=== PATIENT | female | born 1965 | race American Indian/Alaskan Native ===

== ENCOUNTER 2018-01-21 15:30 | Outpatient (RCR) | payer MEDICARE, SELFPAY ==
--- NOTE | 2017-11-06 12:54 | HP.PTEVAL_ITS ---
Patient's Visit Information SUHAS ABURTO is a 52 year old F referred to Physical Therapy by Lamonte ROMANO with a diagnosis of R elbow fractrue.. Date of Evaluation: 11/06/17 Physical Therapist: GROVER PisanoT, OC - Visit Plan Frequency: 2x /Week Duration: 4-6 Weeks Plan: 2x/week x 4-6 for elbow A/PROM and pronation ROM, shoulder ROM, progress to strengtheing as tolerates. Use moist heat and ice at elbow as needed. - Subjective Subjective: Broken R arm last month Sep 24, cleaning house and fell landed on R arm. Went to ER and given support. Saw Dr. Metz a week later and was hurting. Doctor opted for conservative without movement first 15 days , then careful movement. Now time to start moving it. Had a sling she was in during the day. Now she has no precautions except to be careful. Currently pain is not terrible but she prays alot for it. Is also lifting light things to strengthen it. Does hurt to lift the bottle. Using a heating pad at home. Dressing is hard to do because of her lack of motion in the right arm. Does not work. Is looking for work but is not off due to her arm. Enjoys shopping and needs arms to do this. No current exercises, does pendulum a little bit. - Pain R elbow pain Pain Intensity (Out of 10): 0 Pain Intensity Range: 0, 5 - Objective elbow ROM L 0-145. R elbow -29-125 pronation -15 from 90 left. R shoulder stiff at top of elevation 135 degrees on R. Scapula neck and L shoulder AROM WFL. reflexes 2/3 bi and tri B. No obvious sensation deficits to gross light touch. Strenght L UE 4/5. R shoulder 4- flexion and ext rot, 4 IR adn ext, elbow flex 3+ and extension 3+. Wrist pron adn supination and flexion and ext 4 - with mild discomfort with pron and supination and flexion. ROM wrist WNL B. - Goals Goal 1:: Full elbow flex adn ext adn pronation without pain. Goal Time Frame: 4-6 Weeks Goal 2:: Reach with R UE smoothly and without hesitation to do hair and get milk carton. Goal Time Frame: 4-6 Weeks Goal 3:: I approp HEP to continue improvements Goal Time Frame: 4-6 Weeks Goal 4:: Pt report 90% imrovement in overall condition. Goal Time Frame: 4-6 Weeks - Rehabilitation Potential Physical Therapy Diagnosis: R elbow fracture. Rehabilitation Potential: Fair - Anticipated Interventions Patient/Client Instruction: Educate patient on: Condition For the Purpose of:: To decrease pain, To increase ROM, To improve ability of physical actions for home/community/work/leisure Therapeutic Exercise to Include: Strength training, Passive ROM, Active ROM, Scapular Strength/Stabilization For the Purpose of:: To decrease pain, To increase ROM, To improve nutrient delivery to tissue, To increase tolerance to activity/condition/position, To improve ability of physical actions for home/community/work/leisure Manual Therapy Techniques to Include: Mobilization For the Purpose of:: To decrease pain, To increase ROM Cryotherapy (ice pack, ice massage): Yes Thermo therapy (hot pack): Yes For the Purpose of:: To decrease swelling/inflammation Thank you for the opportunity to evaluate your patient. For Medicare and Medicare HMO plans, please review the plan of care and approve it. It will need to be FAXED BACK to us at [phone] for Medicare purposes. Please let me know if there are questions or concerns regarding this plan of care. Physician Signature: Date:
--- NOTE | 2017-12-18 19:03 | HP.PTREVAL_ITS ---
Lamonte Metz, It has been my pleasure to treat SUHAS ABURTO over the last 9 visits for R elbow fractrue.. Please see the progress note below for an update on the physical therapy plan of care! Subjective: Still feels weak. 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 Squeezing mop bucket is a little hard. Arm gets tired quick. Started work two weeks ago. Job getting easier. Sleeping OK R shulder hurts at times and wrist intermittently. Takes 2 alleve everyday for whole body pain. Sees doctor later in the month. Can put turbin on but needs a two second break sometimes. Objective/Function: Movement of. R UE is smooth but limited to -7 ext and full flexion L elbow. Still very weak in shoulder(4-) and elbow(4-), not alot of pain with resisted testing. OVERALL PATIENT DOING WELL. REMAINS LACKING EXTENSION 7 DEGREES IN ELBOW AND WEAK. WILL CONTINUE TO WORK ON THESE AT HOME UNTIL DOCTOR F/U Plan Plan: f/u two weeks after doctor visit to D/C or progress per doctor recommendations. Goals Goal 1:: Full elbow flex adn ext adn pronation without pain. Goal Time Frame: 4-6 Weeks Goal Progress: Not Progressing Goal 2:: Reach with R UE smoothly and without hesitation to do hair and get milk carton. Goal Time Frame: 4-6 Weeks Goal Progress: Goal Met Goal 3:: I approp HEP to continue improvements Goal Time Frame: 4-6 Weeks Goal Progress: Goal Met Goal 4:: Pt report 90% imrovement in overall condition. Goal Time Frame: 4-6 Weeks Goal Progress: Goal Met Goal 5:: Pt not feel tired with UE at work or putting on turbin Goal Time Frame: 2-4 Weeks Goal Progress: NEW GOAL Anticipated Interventions Patient/Client Instruction: Educate patient on: Condition For the Purpose of:: To decrease pain, To increase ROM, To improve ability of physical actions for home/community/work/leisure Therapeutic Exercise to Include: Strength training, Passive ROM, Active ROM, Scapular Strength/Stabilization For the Purpose of:: To decrease pain, To increase ROM, To improve nutrient delivery to tissue, To increase tolerance to activity/condition/position, To improve ability of physical actions for home/community/work/leisure Manual Therapy Techniques to Include: Mobilization For the Purpose of:: To decrease pain, To increase ROM Cryotherapy (ice pack, ice massage): Yes Thermo therapy (hot pack): Yes For the Purpose of:: To decrease swelling/inflammation Please do not hesitate to contact me at [phone] by phone or Fax: if you have questions or concerns regarding this new plan of care! Sincerely, Ezekiel Soni, DPT, OC
--- NOTE | 2018-01-21 16:04 | HP.PTDCSUM ---
HP - PT D/C Summary It has been my pleasure to treat SUHAS ABURTO under orders from DR.JGESLE Gerardo for the diagnosis of R elbow fractrue. for a total of 10 visit(s). Discharge Date: 01/21/18 Please see the following information for a summary of their discharge status. - Subjective Subjective: Saw doctor today. Said she looks good. She will be sore for a little bit longer. Takes alleve and uses heating pad. Doing exercises at home. Doc said minimum of 6 months until feels better. Scheduled in late February. HEP going well, sometimes gets lazy after work. Work was really tiring the first week. Arm a little sore medially after working. Will start full go next week. Does everything at home. Daily pain is toerable but in medial elbow can hurt with 7/10 transsiently if leans on it wrong or eating. Worse with fatigue. Doing strength ex 2x/week, was sick and daughter takes alot of her time. - Pain R elbow pain Pain Intensity (Out of 10): 0 R shoulder Pain Intensity (Out of 10): 1 - Overall Improvement % Improvement: 90 - Objective Objective/Function: -7 ext to 140 flexion, 4/5 strength in R elbow. No increase in pain. Shoulder and wrist ROM full and without pain. OVERALL DOING WELL AND PROGRESS HAS PLATEAUD AT A FUNCTIONAL LEVEL FOR THE PATIENT. - Goals Goal 1:: Full elbow flex adn ext adn pronation without pain. Goal Progress: Not Progressing Goal 2:: Reach with R UE smoothly and without hesitation to do hair and get milk carton. Goal Progress: Goal Met Goal 3:: I approp HEP to continue improvements Goal Progress: Goal Met Goal 4:: Pt report 90% imrovement in overall condition. Goal Progress: Goal Met Goal 5:: Pt not feel tired with UE at work or putting on turbin Goal Progress: Progressing - Plan Plan: D/C - D/C Information Discharge Comments: Pt I with HEP and will continue as time allows at home. If there are questions or concerns regarding this patient's physical therapy, please feel free to call me at [phone]. Thank you for the referral of this patient. Sincerely, Ezekiel Soni, DPT, OC
== END 2018-01-21 19:00 | disposition home or self-care (01) ==
LOC: PT 15:30
PROVIDERS: Family Provider Internal Medicine; PCP Internal Medicine; Visit Provider Orthopaedic Surgery
DX: S52.121D Displaced fracture of head of right radius, subsequent encounter for closed fracture with routine healing (principal)
CPT/HCPCS: 97110; 97140; 97161; 97530; G8981; G8982

== ENCOUNTER → 2018-02-28 11:07 | Outpatient (CLI) | payer MEDICARE, SELFPAY ==
[2018-02-28 12:54] LABS: Absolute Neutrophil Count 4.5 X10^3/uL (2.0-7.7); Basophil# 0.07 X10^3/uL; Basophil% 0.8 % (0-1); Eosinophil# 0.21 X10^3/uL; Eosinophils% 2.4 % (0-5); Hematocrit 34.5 % (37-47); Hemoglobin 10.8 g/dl (12.0-15.0); Lymphocyte % 36.5 % (19-41); Mean Corp Hgb Conc 31.3 g/gl (32-36); Mean Corpuscular Hgb 25.7 pg (27.0-32.0); Mean Corpuscular Volume 82.1 fL (81-99); Monocyte# 0.71 X10^3/uL; Monocyte% 8.1 % (0-10); Neutrophil # 4.52 X10^3/uL (2.7-7.7); Neutrophil % 51.5 % (47-70); Platelet Count 432 K/mm3 (150-450); RBC Distribution Width CV 14.4 % (11.6-14.6); RBC Distribution Width SD 43.3 fl (35.1-43.9); White Blood Count 8.8 K/mm3 (4.4-11.0)
[2018-02-28 12:59] LABS: POSITIVE COUNT NO; POSITIVE DIFFERENTIAL NO; POSITIVE MORPHOLOGY NO
[2018-02-28 13:25] LABS: ALB/GLOB Ratio 0.8 RATIO (0.9-2.4); AST(SGOT) 21 U/L (15-37); Alanine Aminotransfer ALT/SGPT 31 U/L (13-56); Albumin, Serum 3.4 g/dL (3.2-5.0); Alkaline Phosphatase 83 U/L (45-117); Anion Gap 9 (5-15); BUN 12 mg/dL (7-18); BUN/Creat Ratio 16.6 RATIO (10-20); Calcium,Total 8.7 mg/dL (8.5-10.1); Chloride 102 mmol/L (98-107); Creatinine, Serum 0.72 mg/dL (0.55-1.02); EST Glomerular Filtration Rate 89 mL/min (>60); Est Glom Filt Rate - Afr Amer 108 mL/min (>60); Globulin 4.4 g/dL (2.2-4.2); Glucose 73 mg/dL (74-106); Potassium 4.1 mmol/L (3.5-5.1); Protein, Total 7.8 g/dL (6.4-8.2); Sodium Level 136 mmol/L (136-145); Thyroid Stim Hormone (TSH) 3.34 uIU/mL (0.358-3.74)
== END ==
PROVIDERS: Visit Provider Family Medicine Geriatric Medicine
DX: Z00.00 Encounter for general adult medical examination without abnormal findings (principal); I10 Essential (primary) hypertension
CPT/HCPCS: 36415; 80053; 84443; 85025

== ENCOUNTER → 2018-03-08 11:43 | Outpatient (CLI) | payer MEDICARE, SELFPAY ==
[2018-03-08 13:05] LABS: Iron 110 ug/dL (50-170); Iron Binding Capacity,Total 436 ug/dL (250-450)
== END ==
PROVIDERS: Family Provider Family Medicine Geriatric Medicine; PCP Family Medicine Geriatric Medicine; Visit Provider Family Medicine Geriatric Medicine
DX: D64.9 Anemia, unspecified (principal)
CPT/HCPCS: 36415; 83540; 83550

== ENCOUNTER → 2018-03-15 12:44 | Outpatient (CLI) | payer MEDICARE, SELFPAY ==
--- NOTE | 2018-03-14 10:20 | BRBX_PTH ---
PATIENT: SUHAS ABURTO LOC: [facility] U#:[id number] AGE/SX: 60/F ROOM: RE03/15/[address]: Dr. Ned Yusuf MD : 1965 BED: DIS: SPEC #: [id number] RECD: 03/15/18 12:19 STATUS: GILMA MAIHeather #: [id number] KENNETH: 03/14/18 10:[address]: Ned Yusuf DEPT: SURGICAL PATHOLOGY RECD BY: Ned Hernandez ENTERED: 03/15/18 14:14 SP TYPE: BREAST BX OTHR DR: Dr. Cassius Kilpatrick MD Tissues: Right breast, NOS Procedures: Surgery Specimen Level IV Comments: @ Specimen number changed from [id number] to [id number] @ on 03/15/18 at 1449 by TEVIN. HEADER OPERATION: Ultrasound-guided needle core biopsy right breast PRE-OP DIAGNOSIS: Abnormal mammogram/ultrasound TISSUE SUBMITTED: Right breast needle core biopsy ISCHEMIC TIME: 5 minutes FIXATION TIME: 67 hours MICROSCOPIC DIAGNOSIS Right breast, ultrasound-guided needle core biopsy: Fragments of benign breast tissue with dense fibrosis, chronic inflammation and foreign body giant cell reaction. Negative for malignancy. GENESIS:brenton 03/21/18 COMMENT Correlation with clinical, radiologic findings and appropriate follow up are necessary. The results are reported to Dr. Yusuf?s office on 03/20/18. MICROSCOPIC DESCRIPTION Slides are reviewed. GROSS DESCRIPTION Received in fixative is one container labeled with the patient's name and designated right breast biopsy. The specimen consists of three elongated fragments of yellow-white soft tissue that in aggregate measure 1.7 x 0.5 x 0.1 cm. The specimen is totally submitted in one cassette. / AM:brenton 03/15/18 TC:5 CPT: 37458
== END ==
PROVIDERS: Family Provider Family Medicine Geriatric Medicine; PCP Family Medicine Geriatric Medicine; Visit Provider Surgery
DX: R92.8 Other abnormal and inconclusive findings on diagnostic imaging of breast (principal)
CPT/HCPCS: 88305

== ENCOUNTER → 2018-04-15 18:28 | Outpatient (CLI) | payer MEDICARE, SELFPAY ==
--- NOTE | 2018-04-15 18:30 | US_ITS ---
STUDY: ULTRASOUND OF THE FEMALE PELVIS - COMPLETE REASON FOR EXAM: Female, 52 years old. Menorrhagia. TECHNIQUE: Transabdominal and transvaginal. TECHNICAL QUALITY: Adequate. COMPARISON: None. FINDINGS: The uterus is anteverted and is in a midline position. The uterus measures 9.1 x 4.8 x 3.1 cm. Normal uterine cervix. The endometrium measures 4 mm in thickness, and is hyperechoic. There is no demonstrated endometrial mass. Several scattered small uterine fibroids the largest measuring 0.9 x 0.7 x 0.8 cm. I.U.D. - The patient does not have an I.U.D. The right ovary is visualized. The right ovary measures 1.6 x 1.5 x 0.8 cm. There is no right ovarian cyst or ovarian mass. There is no visualized right adnexal mass or complex lesion. There is normal arterial and normal venous vascularity. The left ovary is visualized. The left ovary measures 2.1 x 1.4 x 0.9 cm. There is no left ovarian cyst or ovarian mass. There is no visualized left adnexal mass or complex lesion. There is normal arterial and normal venous vascularity. There is no fluid in the cul-de-sac. The pre void volume of the bladder was 93 ml. Polycystic ovary disease: No. US/Transvaginal Non- IMPRESSION: Small uterine fibroids. Normal ovaries. Electronically Signed: Cleve Beard MD at 0:56 EDT , Service support ,
== END ==
PROVIDERS: Family Provider Family Medicine Geriatric Medicine; PCP Family Medicine Geriatric Medicine; Visit Provider Family Medicine Geriatric Medicine
DX: N92.0 Excessive and frequent menstruation with regular cycle (principal)
CPT/HCPCS: 76830

== ENCOUNTER → 2018-06-05 07:58 | Outpatient (CLI) | payer MEDICAID, SELFPAY ==
[2018-06-05 08:57] LABS: AST(SGOT) 16 U/L (15-37); Alanine Aminotransfer ALT/SGPT 26 U/L (13-56); Albumin, Serum 3.3 g/dL (3.2-5.0); Alkaline Phosphatase 91 U/L (45-117); Bilirubin, Direct 0.07 mg/dL (0.00-0.30); Cholesterol 213 mg/dL (200); Globulin 4.6 g/dL (2.2-4.2); High Density Lipoprotein 54 mg/dL; Protein, Total 7.9 g/dL (6.4-8.2); Thyroid Stim Hormone (TSH) 3.36 uIU/mL (0.358-3.74); Triglycerides 133 mg/dL; Very Low Density Lipoprotein 27 mg/dL (5-40)
== END ==
PROVIDERS: Family Provider Family Medicine Geriatric Medicine; PCP Family Medicine Geriatric Medicine; Visit Provider Internal Medicine Cardiovascular Disease
DX: E78.5 Hyperlipidemia, unspecified (principal)
CPT/HCPCS: 36415; 80061; 80076; 84436; 84443

== ENCOUNTER → 2018-06-06 16:54 | Outpatient (CLI) | payer MEDICAID, SELFPAY ==
[2018-06-06 18:03] LABS: Absolute Lymphocyte Count 3.39 X10^3/ul (0.83-4.51); Absolute Neutrophil Count 6.5 X10^3/uL (2.0-7.7); Basophil# 0.05 X10^3/uL; Basophil% 0.5 % (0-1); Eosinophil# 0.17 X10^3/uL; Eosinophils% 1.5 % (0-5); Hematocrit 34.7 % (37-47); Hemoglobin 10.3 g/dl (12.0-15.0); Lymphocyte # 3.39 X10^3/ul (4.0); Lymphocyte % 30.8 % (19-41); Mean Corp Hgb Conc 29.7 g/gl (32-36); Mean Corpuscular Hgb 23.8 pg (27.0-32.0); Mean Corpuscular Volume 80.1 fL (81-99); Monocyte# 0.88 X10^3/uL; Neutrophil # 6.47 X10^3/uL (2.7-7.7); Neutrophil % 58.8 % (47-70); Platelet Count 453 K/mm3 (150-450); RBC Distribution Width CV 14.7 % (11.6-14.6); RBC Distribution Width SD 42.7 fl (35.1-43.9); Red Blood Count 4.33 M/mm3 (4.2-5.4)
[2018-06-06 18:17] LABS: ALB/GLOB Ratio 0.7 RATIO (0.9-2.4); AST(SGOT) 15 U/L (15-37); Alanine Aminotransfer ALT/SGPT 27 U/L (13-56); Albumin, Serum 3.3 g/dL (3.2-5.0); Alkaline Phosphatase 87 U/L (45-117); Anion Gap 10 (5-15); BUN 12 mg/dL (7-18); BUN/Creat Ratio 15.3 RATIO (10-20); Chloride 102 mmol/L (98-107); Creatinine, Serum 0.78 mg/dL (0.55-1.02); EST Glomerular Filtration Rate 82 mL/min (>60); Est Glom Filt Rate - Afr Amer 99 mL/min (>60); Globulin 4.5 g/dL (2.2-4.2); Glucose 87 mg/dL (74-106); Potassium 4.5 mmol/L (3.5-5.1); Protein, Total 7.8 g/dL (6.4-8.2); Sodium Level 139 mmol/L (136-145); Thyroid Stim Hormone (TSH) 2.87 uIU/mL (0.358-3.74)
[2018-06-06 19:03] LABS: POSITIVE COUNT NO; POSITIVE DIFFERENTIAL NO; POSITIVE MORPHOLOGY NO
[2018-06-07 10:40] LABS: Vitamin D,25 Hydroxy 35.3 ng/mL (29.95-100.01)
== END ==
PROVIDERS: Family Provider Family Medicine Geriatric Medicine; PCP Family Medicine Geriatric Medicine; Visit Provider Family Medicine Geriatric Medicine
DX: E55.9 Vitamin D deficiency, unspecified (principal); I10 Essential (primary) hypertension
CPT/HCPCS: 36415; 80053; 82306; 84443; 85025

== ENCOUNTER → 2018-06-07 13:26 | Outpatient (CLI) | payer MEDICAID, SELFPAY | PROVIDERS: Family Provider Family Medicine Geriatric Medicine; PCP Family Medicine Geriatric Medicine; Visit Provider Internal Medicine Cardiovascular Disease | DX: R94.31 Abnormal electrocardiogram [ECG] [EKG] (principal); R07.9 Chest pain, unspecified; I10 Essential (primary) hypertension | CPT/HCPCS: 93306; A4216 ==

== ENCOUNTER → 2018-06-10 10:33 | Outpatient (CLI) | payer MEDICAID, SELFPAY | PROVIDERS: Family Provider Family Medicine Geriatric Medicine; PCP Family Medicine Geriatric Medicine; Visit Provider Internal Medicine Cardiovascular Disease | DX: R94.31 Abnormal electrocardiogram [ECG] [EKG] (principal); R07.9 Chest pain, unspecified; I10 Essential (primary) hypertension | CPT/HCPCS: 93017; 93350; Q9957; A4216; C8928 ==

== ENCOUNTER → 2018-06-11 14:06 | Outpatient (CLI) | payer MEDICAID, SELFPAY ==
[2018-06-11 15:55] LABS: Estradiol 107.8 pg/mL; Follicle Stimulating Hormone 11.1 mIU/mL
[2018-06-14 03:07] LABS: DHEA Sulfate 102.6 ug/dL (41.2-243.7)
[2018-06-14 11:35] LABS: Testosterone Free 0.9 pg/mL (0.0-4.2)
== END ==
PROVIDERS: Obstetrics & Gynecology; Family Provider Family Medicine Geriatric Medicine; PCP Family Medicine Geriatric Medicine; Visit Provider Family Medicine Geriatric Medicine
DX: N92.6 Irregular menstruation, unspecified (principal)
CPT/HCPCS: 36415; 82627; 82670; 83001; 84402; 82626

== ENCOUNTER → 2018-08-21 11:11 | Outpatient (CLI) | payer MEDICAID, SELFPAY ==
[2018-08-21 12:39] LABS: Absolute Lymphocyte Count 2.65 X10^3/ul (0.83-4.51); Absolute Neutrophil Count 4.8 X10^3/uL (2.0-7.7); Basophil# 0.07 X10^3/uL; Basophil% 0.8 % (0-1); Eosinophil# 0.19 X10^3/uL; Eosinophils% 2.2 % (0-5); Hematocrit 32.6 % (37-47); Hemoglobin 9.8 g/dl (12.0-15.0); Lymphocyte # 2.65 X10^3/ul (4.0); Lymphocyte % 31.3 % (19-41); Mean Corp Hgb Conc 30.1 g/gl (32-36); Mean Corpuscular Hgb 23.1 pg (27.0-32.0); Mean Corpuscular Volume 76.9 fL (81-99); Mean Platelet Vol. 9.4 fl (6.2-12.0); Monocyte# 0.68 X10^3/uL; Neutrophil % 56.9 % (47-70); Platelet Count 440 K/mm3 (150-450); RBC Distribution Width CV 16.5 % (11.6-14.6); RBC Distribution Width SD 45.1 fl (35.1-43.9); Red Blood Count 4.24 M/mm3 (4.2-5.4); White Blood Count 8.5 K/mm3 (4.4-11.0)
[2018-08-21 12:40] LABS: POSITIVE COUNT NO; POSITIVE DIFFERENTIAL NO; POSITIVE MORPHOLOGY NO
[2018-08-21 12:55] LABS: Vitamin D,25 Hydroxy 38.4 ng/mL (29.95-100.01)
[2018-08-21 12:58] LABS: ALB/GLOB Ratio 0.7 RATIO (0.9-2.4); AST(SGOT) 17 U/L (15-37); Alanine Aminotransfer ALT/SGPT 30 U/L (13-56); Alkaline Phosphatase 94 U/L (45-117); Anion Gap 8 (5-15); BUN 11 mg/dL (7-18); BUN/Creat Ratio 14.3 RATIO (10-20); Calcium,Total 8.4 mg/dL (8.5-10.1); Chloride 105 mmol/L (98-107); Creatinine, Serum 0.77 mg/dL (0.55-1.02); EST Glomerular Filtration Rate 84 mL/min (>60); Est Glom Filt Rate - Afr Amer 101 mL/min (>60); Globulin 4.6 g/dL (2.2-4.2); Glucose 87 mg/dL (74-106); Potassium 4.4 mmol/L (3.5-5.1); Protein, Total 7.6 g/dL (6.4-8.2); Sodium Level 140 mmol/L (136-145)
== END ==
PROVIDERS: Family Provider Family Medicine Geriatric Medicine; PCP Family Medicine Geriatric Medicine; Visit Provider Family Medicine Geriatric Medicine
DX: E55.9 Vitamin D deficiency, unspecified (principal); I10 Essential (primary) hypertension
CPT/HCPCS: 36415; 80053; 82306; 84443; 85025

== ENCOUNTER → 2018-08-30 11:44 | Outpatient (CLI) | payer MEDICAID, SELFPAY ==
[2018-07-10 10:18] VITALS: BMI 27.2
== END ==
PROVIDERS: Family Provider Family Medicine Geriatric Medicine; PCP Family Medicine Geriatric Medicine; Referring Provider Family Medicine Geriatric Medicine; Visit Provider Family Medicine Geriatric Medicine
DX: M79.10 Myalgia, unspecified site (principal)
CPT/HCPCS: 87633

== ENCOUNTER → 2018-11-19 11:15 | Outpatient (CLI) | payer MEDICAID, SELFPAY ==
[2018-07-10 10:18] VITALS: BMI 27.2
[2018-11-19 13:31] LABS: Absolute Lymphocyte Count 2.64 X10^3/ul (0.83-4.51); Basophil# 0.06 X10^3/uL; Basophil% 0.7 % (0-1); Eosinophil# 0.11 X10^3/uL; Eosinophils% 1.3 % (0-5); Hemoglobin 10.4 g/dl (12.0-15.0); Lymphocyte # 2.64 X10^3/ul (4.0); Lymphocyte % 30.8 % (19-41); Mean Corp Hgb Conc 29.7 g/gl (32-36); Mean Corpuscular Hgb 23.4 pg (27.0-32.0); Mean Corpuscular Volume 78.8 fL (81-99); Mean Platelet Vol. 8.8 fl (6.2-12.0); Monocyte# 0.67 X10^3/uL; Monocyte% 7.8 % (0-10); Neutrophil # 5.03 X10^3/uL (2.7-7.7); Neutrophil % 58.7 % (47-70); POSITIVE COUNT NO; POSITIVE DIFFERENTIAL NO; POSITIVE MORPHOLOGY NO; Platelet Count 409 K/mm3 (150-450); RBC Distribution Width CV 17.6 % (11.6-14.6); RBC Distribution Width SD 50.7 fl (35.1-43.9); Red Blood Count 4.44 M/mm3 (4.2-5.4); White Blood Count 8.6 K/mm3 (4.4-11.0)
[2018-11-19 13:40] LABS: Vitamin D,25 Hydroxy 28.2 ng/mL (29.95-100.01)
[2018-11-19 13:44] LABS: ALB/GLOB Ratio 0.7 RATIO (0.9-2.4); AST(SGOT) 21 U/L (15-37); Alanine Aminotransfer ALT/SGPT 31 U/L (13-56); Albumin, Serum 3.2 g/dL (3.2-5.0); Alkaline Phosphatase 71 U/L (45-117); Anion Gap 7 (5-15); BUN 14 mg/dL (7-18); BUN/Creat Ratio 19.5 RATIO (10-20); Calcium,Total 8.7 mg/dL (8.5-10.1); Chloride 106 mmol/L (98-107); Creatinine, Serum 0.72 mg/dL (0.55-1.02); EST Glomerular Filtration Rate 90 mL/min (>60); Est Glom Filt Rate - Afr Amer 109 mL/min (>60); Globulin 4.4 g/dL (2.2-4.2); Glucose 72 mg/dL (74-106); Potassium 4.1 mmol/L (3.5-5.1); Protein, Total 7.6 g/dL (6.4-8.2); Sodium Level 138 mmol/L (136-145); Thyroid Stim Hormone (TSH) 2.01 uIU/mL (0.358-3.74)
== END ==
PROVIDERS: Family Provider Family Medicine Geriatric Medicine; PCP Family Medicine Geriatric Medicine; Visit Provider Family Medicine Geriatric Medicine
DX: E55.9 Vitamin D deficiency, unspecified (principal); I10 Essential (primary) hypertension
CPT/HCPCS: 36415; 80053; 82306; 84443; 85025

== ENCOUNTER → 2018-12-23 14:02 | Outpatient (CLI) | payer MEDICAID, SELFPAY ==
[2018-12-19 13:41] VITALS: BMI 27.1
== END ==
PROVIDERS: Family Provider Family Medicine Geriatric Medicine; PCP Family Medicine Geriatric Medicine; Referring Provider Family Medicine Geriatric Medicine; Visit Provider Family Medicine Geriatric Medicine
DX: R68.83 Chills (without fever) (principal)
CPT/HCPCS: 87633

== ENCOUNTER → 2019-03-05 11:57 | Outpatient (CLI) | payer MEDICAID, SELFPAY ==
[2018-12-19 13:41] VITALS: BMI 27.1
[2019-03-05 13:31] LABS: Vitamin D,25 Hydroxy 31.7 ng/mL (29.95-100.01)
[2019-03-05 13:33] LABS: Absolute Lymphocyte Count 2.61 X10^3/ul (0.83-4.51); Absolute Neutrophil Count 5.8 X10^3/uL (2.0-7.7); Basophil# 0.06 X10^3/uL; Basophil% 0.6 % (0-1); Eosinophil# 0.15 X10^3/uL; Eosinophils% 1.6 % (0-5); Hematocrit 36.5 % (37-47); Hemoglobin 11.7 g/dl (12.0-15.0); Lymphocyte # 2.61 X10^3/ul (4.0); Lymphocyte % 28.1 % (19-41); Mean Corp Hgb Conc 32.1 g/gl (32-36); Mean Corpuscular Hgb 27.2 pg (27.0-32.0); Mean Corpuscular Volume 84.9 fL (81-99); Mean Platelet Vol. 9.2 fl (6.2-12.0); Monocyte# 0.58 X10^3/uL; Monocyte% 6.2 % (0-10); Neutrophil # 5.82 X10^3/uL (2.7-7.7); Neutrophil % 62.6 % (47-70); Platelet Count 361 K/mm3 (150-450); RBC Distribution Width CV 15.2 % (11.6-14.6); RBC Distribution Width SD 47.1 fl (35.1-43.9); White Blood Count 9.3 K/mm3 (4.4-11.0)
[2019-03-05 13:36] LABS: POSITIVE COUNT NO; POSITIVE DIFFERENTIAL NO; POSITIVE MORPHOLOGY NO
[2019-03-05 13:37] LABS: ALB/GLOB Ratio 0.7 RATIO (0.9-2.4); AST(SGOT) 21 U/L (15-37); Alanine Aminotransfer ALT/SGPT 34 U/L (13-56); Albumin, Serum 2.9 g/dL (3.2-5.0); Alkaline Phosphatase 80 U/L (45-117); Anion Gap 8 (5-15); BUN 11 mg/dL (7-18); BUN/Creat Ratio 14.9 RATIO (10-20); Calcium,Total 8.7 mg/dL (8.5-10.1); Chloride 106 mmol/L (98-107); Creatinine, Serum 0.74 mg/dL (0.55-1.02); EST Glomerular Filtration Rate 88 mL/min (>60); Est Glom Filt Rate - Afr Amer 106 mL/min (>60); Globulin 4.2 g/dL (2.2-4.2); Glucose 85 mg/dL (74-106); Protein, Total 7.1 g/dL (6.4-8.2); Sodium Level 140 mmol/L (136-145); Thyroid Stim Hormone (TSH) 1.49 uIU/mL (0.358-3.74)
[2019-03-06 16:04] LABS: Hep C Antibodies <0.1 s/co ratio (0.0-0.9)
== END ==
PROVIDERS: Family Provider Family Medicine Geriatric Medicine; PCP Family Medicine Geriatric Medicine; Visit Provider Family Medicine Geriatric Medicine
DX: E55.9 Vitamin D deficiency, unspecified (principal); I10 Essential (primary) hypertension
CPT/HCPCS: 36415; 80053; 82306; 84443; 85025; 86803

== ENCOUNTER → 2019-03-26 15:03 | Outpatient (CLI) | payer MEDICAID, SELFPAY ==
[2018-12-19 13:41] VITALS: BMI 27.1
[2019-04-02 03:06] LABS: Alternaria alternata <0.10 kU/L (Class 0); Aspergillus fumigatus <0.10 kU/L (Class 0); Bahia Grass <0.10 kU/L (Class 0); Beef <0.10 kU/L (Class 0); Bermuda Grass <0.10 kU/L (Class 0); Bluegrass, Kentucky <0.10 kU/L (Class 0); Cat Hair/Dander, Standard <0.10 kU/L (Class 0); Cedar, Mountain 0.11 kU/L (Class 0/I); Cladosporium herbarum <0.10 kU/L (Class 0); Cockroach, American 0.35 kU/L (Class I); Corn <0.10 kU/L (Class 0); Dog Epithelia <0.10 kU/L (Class 0); Egg, Whole <0.10 kU/L (Class 0); Elm, American White <0.10 kU/L (Class 0); Hazelnut Tree <0.10 kU/L (Class 0); Hickory, White <0.10 kU/L (Class 0); Johnson Grass <0.10 kU/L (Class 0); Maple/Box Elder <0.10 kU/L (Class 0); Milk (Cow) <0.10 kU/L (Class 0); Mucor racemosus <0.10 kU/L (Class 0); Mugwort <0.10 kU/L (Class 0); Mulberry, White <0.10 kU/L (Class 0); Nettle <0.10 kU/L (Class 0); Oak, White <0.10 kU/L (Class 0); Peanut <0.10 kU/L (Class 0); Penicillium chrysogen <0.10 kU/L (Class 0); Pigweed, Rough <0.10 kU/L (Class 0); Plantain, English <0.10 kU/L (Class 0); Pork <0.10 kU/L (Class 0); Ragweed, Short/Common <0.10 kU/L (Class 0); Sheep Sorrel(Dock) <0.10 kU/L (Class 0); Soybean <0.10 kU/L (Class 0); Stemphylium herbarum <0.10 kU/L (Class 0); Sweet Gum <0.10 kU/L (Class 0); Sycamore, American <0.10 kU/L (Class 0); Wheat <0.10 kU/L (Class 0)
[2019-04-02 11:21] LABS: Chocolate <0.10 kU/L (Class 0)
== END ==
PROVIDERS: Family Provider Family Medicine Geriatric Medicine; PCP Family Medicine Geriatric Medicine; Visit Provider Family Medicine Geriatric Medicine
DX: L20.89 Other atopic dermatitis (principal)
CPT/HCPCS: 36415; 86003; 86005

== ENCOUNTER → 2019-06-10 10:43 | Outpatient (CLI) | payer MEDICAID, SELFPAY ==
[2019-05-02 11:47] VITALS: BMI 27.1
--- NOTE | 2019-06-10 10:53 | RAD_ITS ---
REPORT STUDY: X-RAY - LEFT KNEE REASON FOR EXAM: Female, 53 years old. Pain chronic pain TECHNIQUE: 4 view(s) of the knee. COMPARISON: None. FINDINGS: Normal visualized distal femur. Normal visualized proximal tibia and fibula. Normal proximal tibiofibular articulation. There is moderate degenerative arthrosis of the medial femorotibial compartment with moderate joint space narrowing. There is mild degenerative arthrosis of the lateral femorotibial compartment. There is mild degenerative arthrosis of the patellofemoral articulation. There is enthesopathy at the Achilles insertion. There are small calcific densities or hypertrophy of the tibial spine. There may be a trace joint effusion. The soft tissue structures are unremarkable. RAD/Knee 4 or More Views IMPRESSION: Degenerative changes left knee. No visualized acute fracture. There may be a trace joint effusion. Electronically Signed: Emily Cavazos MD at 17:50 EDT Tel , Service support ,
== END ==
PROVIDERS: Family Provider Family Medicine Geriatric Medicine; PCP Family Medicine Geriatric Medicine; Referring Provider Family Medicine Geriatric Medicine; Visit Provider Family Medicine Geriatric Medicine
DX: M25.569 Pain in unspecified knee (principal)
CPT/HCPCS: 73564

== ENCOUNTER → 2019-07-23 12:20 | Outpatient (CLI) | payer MEDICAID, SELFPAY ==
[2019-06-18 10:21] VITALS: BMI 28.3
[2019-07-29 16:24] LABS: DHEA Sulfate 14.5 ug/dL (41.2-243.7); Testosterone, % Free 1.49 % (0.50-2.80); Testosterone, Free < 0.04 ng/dL (0.10-0.85); Testosterone, Total < 3 ng/dL (3-41)
[2019-07-29 16:46] LABS: Androstenedione 25 ng/dL (41-262); Sex Hormone-binding Globulin 57.9 nmol/L (17.3-125.0)
== END ==
PROVIDERS: Family Provider Family Medicine Geriatric Medicine; PCP Family Medicine Geriatric Medicine; Referring Provider Dermatology; Visit Provider Dermatology
DX: L30.9 Dermatitis, unspecified (principal); L30.8 Other specified dermatitis; L68.0 Hirsutism
CPT/HCPCS: 36415; 82157; 82627; 84270; 84402; 84403; 82626

== ENCOUNTER → 2019-09-03 11:14 | Outpatient (CLI) | payer MEDICAID, SELFPAY ==
[2019-06-18 10:21] VITALS: BMI 28.3
[2019-09-03 12:29] LABS: Hemoglobin 11.7 g/dL (12.0-15.0); Mean Corp Hgb Conc 31.6 g/dL (32-36); Mean Corpuscular Hgb 27.9 pg (27.0-32.0); Mean Corpuscular Volume 88.1 fL (81-99); Mean Platelet Vol. 9.5 fl (6.2-12.0); POSITIVE COUNT YES; POSITIVE MORPHOLOGY YES; Platelet Count 382 K/mm3 (150-450); RBC Distribution Width CV 13.9 % (11.6-14.6); RBC Distribution Width SD 44.2 fl (35.1-43.9); White Blood Count 14.3 K/mm3 (4.4-11.0)
[2019-09-03 12:36] LABS: Differential Indicated MANUAL DIFF
[2019-09-03 12:46] LABS: ALB/GLOB Ratio 0.8 RATIO (0.9-2.4); AST(SGOT) 14 U/L (15-37); Alanine Aminotransfer ALT/SGPT 34 U/L (13-56); Alkaline Phosphatase 64 U/L (45-117); Anion Gap 8 (5-15); BUN 18 mg/dL (7-18); BUN/Creat Ratio 24.6 RATIO (10-20); Calcium,Total 8.8 mg/dL (8.5-10.1); Chloride 101 mmol/L (98-107); Creatinine, Serum 0.73 mg/dL (0.55-1.02); EST Glomerular Filtration Rate 88 mL/min (>60); Est Glom Filt Rate - Afr Amer 106 mL/min (>60); Glucose 75 mg/dL (74-106); Sodium Level 139 mmol/L (136-145)
[2019-09-03 12:56] LABS: Vitamin D,25 Hydroxy 25.6 ng/mL (29.95-100.01)
[2019-09-03 13:25] LABS: Lymphocyte 19 % (19-41); Metamyelocyte 3 % (0-1); Monocyte 5 % (0-10); Myelocyte 2 (0-0); Neutrophil-Band 3 % (0-5); Neutrophil-Segmented 68 % (47-70); Red Cell Morphology NORM C+C NORMAL (NORM C&C); Total Cells Counted 100 (MANUAL DIFF)
[2019-09-03 13:26] LABS: Platelet Estimate ADEQUATE (ADEQ)
[2019-09-03 13:27] LABS: Absolute Lymphocyte Count 2.72 X10^3/uL (0.83-4.51); Absolute Neutrophil Count 10.2 X10^3/uL (2.0-7.7)
[2019-09-05 13:17] LABS: Pathologist Review Reviewed
== END ==
PROVIDERS: Family Provider Family Medicine Geriatric Medicine; PCP Family Medicine Geriatric Medicine; Visit Provider Family Medicine Geriatric Medicine
DX: I10 Essential (primary) hypertension (principal); E55.9 Vitamin D deficiency, unspecified
CPT/HCPCS: 36415; 80053; 82306; 84443; 85025

== ENCOUNTER → 2019-09-05 10:11 | Outpatient (CLI) | payer MEDICAID, SELFPAY ==
[2019-06-18 10:21] VITALS: BMI 28.3
--- NOTE | 2019-09-05 10:12 | RAD_ITS ---
STUDY: X-RAY - LEFT KNEE REASON FOR EXAM: Female, 54 years old. Left knee pain TECHNIQUE: 4 view(s) of the knee. COMPARISON: None. FINDINGS: Normal visualized distal femur. Normal visualized proximal tibia and fibula. Normal proximal tibiofibular articulation. There is mild degenerative arthrosis of the medial femorotibial compartment. Normal lateral femorotibial compartment. Normal patellofemoral articulation. There is no demonstrated joint effusion. The soft tissue structures are unremarkable. RAD/Knee 4 or More Views IMPRESSION: Mild medial compartment osteoarthrosis. Electronically Signed: Ronald Spencer MD (Brooks) at 14:54 EST , Service support ,
== END ==
PROVIDERS: Family Provider Family Medicine Geriatric Medicine; PCP Family Medicine Geriatric Medicine; Referring Provider Orthopaedic Surgery; Visit Provider Orthopaedic Surgery
DX: M17.12 Unilateral primary osteoarthritis, left knee (principal)
CPT/HCPCS: 73564

== ENCOUNTER → 2019-10-27 14:54 | Outpatient (CLI) | payer MEDICAID, SELFPAY ==
[2019-10-27 10:57] VITALS: BMI 28.3
== END ==
PROVIDERS: Family Provider Family Medicine Geriatric Medicine; PCP Family Medicine Geriatric Medicine; Referring Provider Family Medicine Geriatric Medicine; Visit Provider Family Medicine Geriatric Medicine
DX: R68.83 Chills (without fever) (principal)
CPT/HCPCS: 87633

== ENCOUNTER → 2020-03-11 14:40 | Outpatient (CLI) | payer MEDICAID, SELFPAY ==
[2019-12-29 10:39] VITALS: BMI 27.9
[2020-03-11 16:49] LABS: Absolute Lymphocyte Count 2.79 X10^3/uL (0.83-4.51); Absolute Neutrophil Count 7.1 X10^3/uL (2.0-7.7); Basophil# 0.11 X10^3/uL; Eosinophil# 0.16 X10^3/uL; Eosinophils% 1.4 % (0-5); Hematocrit 38.7 % (37-47); Hemoglobin 11.7 g/dL (12.0-15.0); Lymphocyte # 2.79 X10^3/ul (4.0); Lymphocyte % 24.9 % (19-41); Mean Corp Hgb Conc 30.2 g/dL (32-36); Mean Corpuscular Hgb 26.5 pg (27.0-32.0); Mean Corpuscular Volume 87.6 fL (81-99); Mean Platelet Vol. 9.4 fl (6.2-12.0); Monocyte# 0.84 X10^3/uL; Monocyte% 7.5 % (0-10); NRBC Flagged by Analyzer 0 % (0-5); Neutrophil # 7.14 X10^3/uL (2.7-7.7); Neutrophil % 63.7 % (47-70); Platelet Count 433 K/mm3 (150-450); RBC Distribution Width CV 13.6 % (11.6-14.6); RBC Distribution Width SD 43.9 fl (35.1-43.9); Red Blood Count 4.42 M/mm3 (4.2-5.4); White Blood Count 11.2 K/mm3 (4.4-11.0)
[2020-03-11 17:04] LABS: Vitamin D,25 Hydroxy 38.8 ng/mL
[2020-03-11 17:23] LABS: ALB/GLOB Ratio 0.7 RATIO (0.9-2.4); AST(SGOT) 22 U/L (15-37); Alanine Aminotransfer ALT/SGPT 35 U/L (13-56); Albumin, Serum 3.1 g/dL (3.2-5.0); Alkaline Phosphatase 76 U/L (45-117); Anion Gap 5 (5-15); BUN 8 mg/dL (7-18); BUN/Creat Ratio 13.4 RATIO (10-20); Calcium,Total 9.1 mg/dL (8.5-10.1); Chloride 104 mmol/L (98-107); EST Glomerular Filtration Rate 111 mL/min (>60); Est Glom Filt Rate - Afr Amer 134 mL/min (>60); Globulin 4.4 g/dL (2.2-4.2); Glucose 81 mg/dL (74-106); Potassium 3.6 mmol/L (3.5-5.1); Protein, Total 7.5 g/dL (6.4-8.2); Sodium Level 138 mmol/L (136-145); Thyroid Stim Hormone (TSH) 1.51 uIU/mL (0.358-3.74)
== END ==
PROVIDERS: PCP Family Medicine Geriatric Medicine; Visit Provider Family Medicine Geriatric Medicine
DX: E55.9 Vitamin D deficiency, unspecified (principal); I10 Essential (primary) hypertension
CPT/HCPCS: 36415; 80053; 82306; 84443; 85025

== ENCOUNTER → 2020-04-21 11:12 | Outpatient (CLI) | payer MEDICAID, SELFPAY ==
[2019-12-29 10:39] VITALS: BMI 27.9
--- NOTE | 2020-04-21 11:16 | BI_ITS ---
MAMMOGRAPHY - BILATERAL SCREENING REASON FOR EXAM: Female, 54 years old. Routine annual screening examination. PERTINENT HISTORY: Non-contributory. Remote right breast biopsy. TECHNIQUE: Digital bilateral breast weston (3D mammographic acquisition) in the CC and MLO projections. 2-D mediolateral oblique (MLO) and craniocaudad (CC) views of both breasts were obtained. CAD: Full Field Digital Mammography with Computer Added Detection was performed. COMPARISON: Comparison is made with prior abdomen examination dated June 29, 2017. FINDINGS: Breast Composition: The breasts are heterogeneously dense, which may obscure small masses. There are no dominant masses or suspicious calcifications. A tissue clip marker is seen in the upper lateral portion of the right breast. This is new as compared to prior study. Stable benign-appearing bilateral axillary lymph nodes. No other significant abnormalities are identified. BI/SCREEN MAMM (CAD) W/WESTON BILAT IMPRESSION: Stable biopsy in the upper-outer quadrant of the right breast as described. Otherwise, there has been no change. Yearly follow-up mammogram recommended. (A) ASSESSMENT CATEGORY: BIRADS Category 2: Benign. A letter regarding these results will be sent to the patient by the facility within 30 days. Approximately 10% of breast cancers are not detected by mammography. A normal mammogram should not delay biopsy of a clinically suspicious abnormality. [id number] Electronically Signed: Bradley Ferrara, at 12:57 EDT , Service support ,
== END ==
PROVIDERS: PCP Family Medicine Geriatric Medicine; Referring Provider Family Medicine Geriatric Medicine; Visit Provider Family Medicine Geriatric Medicine
DX: Z12.31 Encounter for screening mammogram for malignant neoplasm of breast (principal)
CPT/HCPCS: 77063; 77067

== ENCOUNTER → 2020-06-22 10:44 | Outpatient (CLI) | payer MEDICAID, SELFPAY ==
[2020-04-26 09:08] VITALS: BMI 27.9
--- NOTE | 2020-06-22 10:51 | RAD_ITS ---
STUDY: X-RAY - LEFT FOOT CLINICAL: Female, 55 years old. LATERAL FOOT/ANKLE PAIN SINCE SUNDAY, NKI TECHNIQUE: 3 view(s) of the foot. COMPARISON: None. FINDINGS: There is an enthesophyte region of the Achilles tendon insertion on the posterior calcaneal tuberosity. There is a tiny plantar aspect calcaneal spur. Normal visualized subtalar, talonavicular, calcaneocuboid, tarsal and tarsometatarsal articulations. Normal metatarsi. Normal metatarsophalangeal joint of the great toe. Normal tibial and fibular sesamoid bones. Normal interphalangeal joint of the great toe. Normal phalanges of the great toe. Normal second through fifth metatarsophalangeal joints. Normal interphalangeal joints and phalanges of the lesser toes. The soft tissue structures are unremarkable. RAD/Foot min 3 Views IMPRESSION: Calcaneal spurs. No evidence of fracture or dislocation. Electronically Signed: Ezequiel Harris MD at 20:31 EDT , Service support ,
--- NOTE | 2020-06-22 10:51 | RAD_ITS ---
STUDY: X-RAY - LEFT ANKLE REASON FOR EXAM: Female, 55 years old. LATERAL FOOT/ANKLE PAIN SINCE SUNDAY, NKI TECHNIQUE: 3 view(s) of the ankle. COMPARISON: None. FINDINGS: Normal visualized distal tibia and fibula. Normal medial and lateral malleoli. Normal tibiotalar articulation and ankle mortise. There is an enthesophyte of the posterior calcaneal tuberosity in the region of the Achilles tendon insertion. A small plantar aspect calcaneal spur is also noted. The visualized subtalar, talonavicular, calcaneocuboid and tarsal articulations are normal. The soft tissue structures are unremarkable. RAD/Ankle min 3 Views IMPRESSION: Calcaneal spurs. Electronically Signed: Ezequiel Harris MD at 20:32 EDT , Service support ,
== END ==
PROVIDERS: PCP Family Medicine Geriatric Medicine; Referring Provider Family Medicine Geriatric Medicine; Visit Provider Family Medicine Geriatric Medicine
DX: M79.609 Pain in unspecified limb (principal); M25.579 Pain in unspecified ankle and joints of unspecified foot
CPT/HCPCS: 73610; 73630

== ENCOUNTER 2020-07-06 09:28 | Emergency (ER) | payer MEDICAID, SELFPAY ==
[2020-04-26 09:08] VITALS: BMI 27.9
[2020-07-06 09:29] VITALS: BP 171/107; PULSE 79; RESP 17; TEMP 36.1; O2SAT 100; BMI 30.2
--- NOTE | 2020-07-06 09:46 | ED.DCSUM_ITS ---
- ER Visit Summary Date of Service: 07/06/20 Chief Complaint: Left foot and ankle pain History of Present Illness: The patient is a 55 F who presents with left foot and ankle pain that is been getting worse over the past 2 weeks. Patient states she saw her primary care physician for this who did outpatient x-rays. X-ray showed calcaneal spurs but no acute fracture. Patient states her primary care physician prescribed her medication for 10 days but she is out of this. Patient states the pain is sharp and is constant. Patient states the pain is worse when she stands after sitting for a long time. Patient states the pain radiates to the left hip area posteriorly. Patient denies any trauma or injury. Patient denies any paresthesias or weakness. Physical Examination: Vital signs are stable. Patient is afebrile. Patient is in no acute distress. Musculoskeletal exam reveals tenderness over the lateral aspect of the left foot and ankle area. There is no edema or ecchymosis. There is no bony crepitance or step-off. There is no deformity noted. Range of motion was slightly limited in all motions of the left ankle and foot secondary to pain. Pedal pulses are equal bilaterally. Sensation was intact light touch in all digits. Capillary refill was less than 2 seconds in all digits. There is also some mild tenderness over the left posterior hip. There is no tenderness over the proximal fibula. There is good range of motion of the left hip and left knee. Emergency Department Course and Treatment: Prior x-rays were reviewed. There were calcaneal spurs. There is no acute fracture. Since there is no trauma or injury, I do not feel repeat x-rays are necessary at this time. Patient was given a dose of ibuprofen here. Patient was given a walking boot. Patient was instructed to ice and elevate the left foot and ankle. Patient was given a prescription for ibuprofen. Patient was instructed to follow-up with her primary care physician or podiatry as scheduled. Patient understood and was agreeable with the plan. All questions were answered. Disposition: Discharge home Impression: Tendinitis left ankle This note was generated with PlanStanation software. It may contain incorrect words, spelling, and punctuation that were not noted in review of the chart prior to signing ED Disposition - Plan for ED Patient: Disposition: Home or Assisted Living Diagnosis: Tendinitis of left ankle Instructions: ED Tendinitis Calcific Prescriptions: Ibuprofen [Motrin] 600 mg PO Q8H PRN PRN #30 tab PRN Reason: Pain Score 1-07/24 Transmission Status: Pending to [id number] Referrals: Cassius Kilpatrick Chi, MD [Primary Care Provider] - 5-7 Days
[2020-07-06] MEDS: Ibuprofen 600 MG Tablet PO (10:28)
== END 2020-07-06 10:29 | disposition home or self-care (01) ==
LOC: ED 09:56
PROVIDERS: Emergency Provider Emergency Medicine; PCP Family Medicine Geriatric Medicine
DX: M77.52 Other enthesopathy of left foot and ankle (principal)
CPT/HCPCS: 99282

== ENCOUNTER → 2020-09-15 10:44 | Outpatient (CLI) | payer MEDICAID, SELFPAY ==
[2020-07-21 11:18] VITALS: BMI 30.2
[2020-09-15 12:36] LABS: Absolute Lymphocyte Count 3.33 X10^3/uL (0.83-4.51); Basophil# 0.07 X10^3/uL; Basophil% 0.7 % (0-1); Eosinophil# 0.22 X10^3/uL; Eosinophils% 2.3 % (0-5); Hematocrit 38.4 % (37-47); Hemoglobin 11.7 g/dL (12.0-15.0); Lymphocyte # 3.33 X10^3/ul (4.0); Lymphocyte % 35.1 % (19-41); Mean Corp Hgb Conc 30.5 g/dL (32-36); Mean Corpuscular Hgb 26.7 pg (27.0-32.0); Mean Corpuscular Volume 87.5 fL (81-99); Mean Platelet Vol. 9.7 fl (6.2-12.0); Monocyte# 0.77 X10^3/uL; Monocyte% 8.1 % (0-10); NRBC Flagged by Analyzer 0 % (0-5); Neutrophil # 5.02 X10^3/uL (2.7-7.7); Neutrophil % 53.1 % (47-70); Platelet Count 371 K/mm3 (150-450); RBC Distribution Width CV 14.4 % (11.6-14.6); RBC Distribution Width SD 45.8 fl (35.1-43.9); Red Blood Count 4.39 M/mm3 (4.2-5.4); White Blood Count 9.5 K/mm3 (4.4-11.0)
[2020-09-15 13:00] LABS: ALB/GLOB Ratio 0.9 RATIO (0.9-2.4); AST(SGOT) 29 U/L (15-37); Alanine Aminotransfer ALT/SGPT 48 U/L (13-56); Albumin, Serum 3.5 g/dL (3.2-5.0); Alkaline Phosphatase 86 U/L (45-117); Anion Gap 5 (5-15); BUN 11 mg/dL (7-18); BUN/Creat Ratio 16.9 RATIO (10-20); Calcium,Total 9.4 mg/dL (8.5-10.1); Chloride 107 mmol/L (98-107); Creatinine, Serum 0.65 mg/dL (0.55-1.02); EST Glomerular Filtration Rate 100 mL/min (>60); Est Glom Filt Rate - Afr Amer 121 mL/min (>60); Globulin 3.9 g/dL (2.2-4.2); Glucose 88 mg/dL (74-106); Protein, Total 7.4 g/dL (6.4-8.2); Sodium Level 141 mmol/L (136-145); Thyroid Stim Hormone (TSH) 1.78 uIU/mL (0.358-3.74)
[2020-09-15 13:01] LABS: Vitamin D,25 Hydroxy 39.4 ng/mL
== END ==
PROVIDERS: PCP Family Medicine Geriatric Medicine; Visit Provider Family Medicine Geriatric Medicine
DX: E55.9 Vitamin D deficiency, unspecified (principal); I10 Essential (primary) hypertension
CPT/HCPCS: 36415; 80053; 82306; 84443; 85025

== ENCOUNTER 2020-09-24 11:00 | Outpatient (RCR) | payer MEDICAID, SELFPAY ==
--- NOTE | 2020-07-13 09:27 | HP.PTEVAL_ITS ---
Patient's Visit Information SUHAS ABURTO is a 55 year old F referred to Physical Therapy by Dr. Cassius Kilpatrick MD with a diagnosis of Scaitica. Date of Evaluation: 07/12/20 Physical Therapist: Chandler Poe DPT - Visit Plan Frequency: 2x /Week Duration: 4 Weeks Plan: Start with extension exercises, progress as able. Add in piriformis stretch. May use US as needed. Progress core strengthening once symptoms have started to resolve. - Subjective Pt. is here today for her initial evaluation with diagnosis of sciatica. Pt. reports having symptoms for ~1 month. She has been dealing with L leg pain extending down to her foot/ankle. She reports no mech of injury, but does think she might have hurt it while lifting boxes. Pt. has taken prednisone which helped, but does not want to take any more due to believing they caused her to gain wt. She did have an injection which she though helped her a bit as well. Pt. reports increased pain with sitting for too long, if walking for too long. She reports being painful with bending forward and has not tried lifting anythign due to pain. Pt. has greatest pain in AM when she walks up. She does report having N/T in her 3rd, 4th, 5th toes and lateral leg at times. Pt. is no longer taking any medications. Pt. has not had any imaging of her lumabr spine at this point in time. - Pain Lumbar spine Pain Intensity (Out of 10): 4 Pain Intensity Range: 0, 8 LLE Pain Intensity (Out of 10): 4 Pain Intensity Range: 0, 8 L foot/ankle Pain Intensity (Out of 10): 4 Pain Intensity Range: 0, 8 - Objective POSTURE: pt. has slight flexed posture. Pt. has slight wt. shift to R side. No rmal iliac crest heights. PALPATION: Pt. has hypomobility noted throughout lumbar spine. No paraspinal pain. Pt. does have L sided piriformis pain. NEURO: Pt. has normal sensation throughout BLEs. Pt. has normal DTR of BLEs. Pt. is melissa to rise on heels and toes without issues. MMT: distal LEs- 5/5 throughout. Pt. has 4/5 B hip strength throughout. Core strength- poor. GAIT: Pt. has antalgic pattern during L stance phase. Pt. has minimal arm swing, but did improving after extension exsercises. STAIRS: Pt. uses BHR to complete, increase in symptoms with ascending, no pain with descending. - Special Tests L/S Slump test left side: Positive L/S Slump test right side: Negative L/S Left Straight Leg Raise: Positive L/S Right Straight Leg Raise: Negative Lumbar Standing: Flexion - Mechanical Response: No effect Lumbar Standing: Flexion - Symptoms During Testing: Increases Lumbar Standing: Flexion - Symptoms After Testing: No worse Lumbar Standing: Extension - Mechanical Response: No effect Lumbar Standing: Extension - Symptoms During Testing: Decreases Lumbar Standing: Extension - Symptoms After Testing: No better Lumbar Standing: Right Side Glides - Mechanical Response: No effect Lumbar Standing: Right Side [place] - Symptoms During Testing: No effect Lumbar Standing: Right Side [place] - Symptoms After Testing: No effect Lumbar Standing: Left Side [place] - Mechanical Response: No effect Lumbar Standing: Left Side [place] - Symptoms During Testing: No effect Lumbar Standing: Left Side [place] - Symptoms After Testing: No effect Lumbar Lying: Extension - Mechanical Response: No effect Lumbar Lying: Extension - Symptoms During Testing: Decreases Lumbar Lying: Extension - Symptoms After Testing: Better Lumbar Static: Slouched Sit - Mechanical Response: No effect Lumbar Static: Slouched Sit - Symptoms During Testing: Increases Lumbar Static: Slouched Sit - Symptoms After Testing: No worse Lumbar Static: Sitting Erect - Mechanical Response: No effect Lumbar Static: Sitting Erect - Symptoms During Testing: Decreases Lumbar Static: Sitting Erect - Symptoms After Testing: No better Lumbar Static:Lying Prone in Extension - Mechanical Response: No effect Lumbar Static: Lying Prone in Extension - Sx During Testing: Decreases Lumbar Static: Lying Prone in Extension - Sx After Testing: Better - Goals Goal 1:: LTG: Pt. to be I with HEP. Goal Time Frame: 4-6 Weeks Goal 2:: LTG: Pt. to have full lumbar ROM without increase in symptoms. Goal Time Frame: 4-6 Weeks Goal 3:: STG: Pt. to sleep throughout the night without increase in symptoms. Goal Time Frame: 2-4 Weeks Goal 4:: STG: Pt. to be able to walk community level distances without increase in symptoms. Goal Time Frame: 2-4 Weeks Goal 5:: LTG: Pt. to walk unlimited distances without increase in symptoms. Goal Time Frame: 4-6 Weeks Goal 6:: LTG: Pt. to have increased core strength by 1/2 grade throughout. Goal Time Frame: 4-6 Weeks - Rehabilitation Potential Physical Therapy Diagnosis: Pt. has signs and symptoms consistent with sciatica. Pt. has decreased lumbar ROM and decreased core strength. Pt. had good response with extension exericses thsi date. Pt. had hypombility and pain radiating down her leg. Pt. would benefit from PT to reduce symptoms and progress core strength in order to reduce re occurance. Rehabilitation Potential: Good - Anticipated Interventions Patient/Client Instruction: Educate patient on: Condition, Plan of Care, Risk Factors, Benefits of Fitness Program For the Purpose of:: To foster healthy habits, To improve decision making, To facilitate caregiver knowledge, To improve self management, To prevent re-injury Therapeutic Exercise to Include: Strength training, Power training, Postural training, Flexibilty training, Passive ROM, Active ROM, Dynamic Lumbar Stabilization, Day Exercises For the Purpose of:: To decrease pain, To decrease swelling/inflammation, To increase ROM, To improve nutrient delivery to tissue, To increase oxygenation perfusion, To improve muscle performance and motor function, To improve health of tissue, To decrease soft tissue restriction, To increase flexibility/ROM Manual Therapy Techniques to Include: Mobilization, Passive ROM, Functional dry needling, Soft tissue mobilization For the Purpose of:: To decrease pain, To decrease swelling/inflammation, To increase ROM, To improve nutrient delivery to tissue IF ES: Yes Cryotherapy (ice pack, ice massage): Yes For the Purpose of:: To decrease pain, To decrease swelling/inflammation, To increase ROM, To improve nutrient delivery to tissue, To increase oxygenation perfusion, To improve muscle performance and motor function Thank you for the opportunity to evaluate your patient. For Medicare and Medicare HMO plans, please review the plan of care and approve it. It will need to be FAXED BACK to us at [phone] for Medicare purposes. For Medicare only, by signing this I certify the plan of care. Please let me know if there are questions or concerns regarding this plan of care. Physician Signature: Date:
[2020-07-21 11:18] VITALS: BMI 30.2
== END 2020-09-24 19:00 | disposition home or self-care (01) ==
LOC: PT 11:00
PROVIDERS: PCP Family Medicine Geriatric Medicine; Referring Provider Family Medicine Geriatric Medicine; Visit Provider Family Medicine Geriatric Medicine
DX: M54.30 Sciatica, unspecified side (principal)
CPT/HCPCS: 97012; 97035; 97110; 97161; 97530

== ENCOUNTER → 2020-10-05 16:51 | Outpatient (CLI) | payer MEDICAID, SELFPAY ==
[2020-07-21 11:18] VITALS: BMI 30.2
--- NOTE | 2020-10-05 16:52 | MRI_ITS ---
STUDY: MRI LUMBAR SPINE WITHOUT CONTRAST REASON FOR EXAM: Female, 55 years old. LBP, LEFT hip and buttock pain TECHNIQUE: Standardized fat and water weighted pulse sequences were obtained in the sagittal and axial without contrast COMPARISON: 24 September 2020 FINDINGS: Lumbar spine is aligned. Marrow and paraspinous soft tissues are normal. SI joints are not imaged. BMI is elevated with intra-abdominal adiposity. Conus terminates at mid L2. Cauda equina is normal. T12-L1: Normal endplates. Normal disc height, hydration and morphology. Normal bilateral facet joints. Normal central canal and bilateral lateral recesses. Normal bilateral intervertebral neural foramina. L1-2: Normal endplates. Normal disc height, hydration with degenerative morphology. Normal bilateral facet joints. Normal central canal and bilateral lateral recesses. Normal bilateral intervertebral neural foramina. L2-3: Normal endplates. Normal disc height, hydration with degenerative morphology. Normal bilateral facet joints. Normal central canal and bilateral lateral recesses. Normal bilateral intervertebral neural foramina. L3-4: Normal endplates. Normal disc height, hydration with degenerative morphology. Normal bilateral facet joints. Normal central canal and bilateral lateral recesses. Normal bilateral intervertebral neural foramina. L4-5: Normal endplates. Normal disc height, hydration and morphology. Normal bilateral facet joints. Normal central canal and bilateral lateral recesses. Normal bilateral intervertebral neural foramina. L5-S1: Normal endplates. Normal disc height, hydration with degenerative morphology. Normal bilateral facet joints. Normal central canal and bilateral lateral recesses. There is mild bilateral foraminal stenosis. MRI/Spine Lumbar (Routine) IMPRESSION: Patent canal, no neural compression. Age-appropriate changes. Electronically Signed: Cecy Bhandari, at 19:06 EST Tel , Service support ,
== END ==
PROVIDERS: PCP Family Medicine Geriatric Medicine; Referring Provider Orthopaedic Surgery; Visit Provider Orthopaedic Surgery
DX: M43.16 Spondylolisthesis, lumbar region (principal)
CPT/HCPCS: 72148

== ENCOUNTER → 2020-11-29 10:48 | Outpatient (CLI) | payer MEDICAID, SELFPAY ==
[2020-07-21 11:18] VITALS: BMI 30.2
--- NOTE | 2020-11-29 12:14 | NEURO ---
NCS and/or EMG Patient Report Ordering Doctor: Matt Gill DATE OF SERVICE: 11/29/20 Indication: Intermittent sensory loss in the left toes. Pain in the left hip and left knee. No back pain or radicular symptoms. Evaluate for lumbar radiculopathy. Findings: Nerve conduction studies were performed in the left lower extremity. The left peroneal motor study recording the extensor digitorum brevis showed a normal amplitude, normal distal latency and normal conduction velocity. No conduction block or focal slowing was present across the fibular neck. The left tibial motor study recording the abductor hallucis brevis showed a normal amplitude, normal distal latency and normal conduction velocity. Left sural sensory response showed a normal amplitude and conduction velocity. Left superficial peroneal sensory response showed a normal amplitude and conduction velocity. Left medial plantar sensory response showed a normal amplitude and conduction velocity. Needle EMG of the left lower extremity and lumbar paraspinal muscles was performed. No denervation was present in any muscle. All motor unit morphology, activation and recruitment patterns were normal. Impression: This is a normal study. There is no electrophysiologic evidence of lumbosacral radiculopathy or peripheral neuropathy in the left lower extremity. Please note: the electrodiagnosis of radiculopathy is made on the basis of excluding peripheral nerve lesions on nerve conduction studies and the needle EMG demonstrating denervation and/or reinnervation in the distribution of one or more nerve roots (i.e., acute and/or chronic axonal loss). Thus, electrodiagnostic studies are insensitive in detecting radiculopathy in the absence of axonal loss (e.g., in the setting of compression resulting in intermittent ischemia or mechanical deformation; or demyelination without axonal loss). Thus, clinical correlation is required in the interpretation of this negative electrodiagnostic study for radiculopathy. Rodrick Boyd D.O.
== END ==
PROVIDERS: PCP Family Medicine Geriatric Medicine; Referring Provider Orthopaedic Surgery; Visit Provider Orthopaedic Surgery
DX: R20.0 Anesthesia of skin (principal)
CPT/HCPCS: 95886; 95909

== ENCOUNTER → 2020-12-20 14:24 | Outpatient (CLI) | payer MEDICAID, SELFPAY ==
[2020-07-21 11:18] VITALS: BMI 30.2
== END ==
PROVIDERS: PCP Family Medicine Geriatric Medicine; Referring Provider Family Medicine Geriatric Medicine; Visit Provider Family Medicine Geriatric Medicine
DX: R68.83 Chills (without fever) (principal)
CPT/HCPCS: 87635; C9803; U0002

== ENCOUNTER → 2021-03-16 11:56 | Outpatient (CLI) | payer MEDICAID, SELFPAY ==
[2020-07-21 11:18] VITALS: BMI 30.2
[2021-03-16 12:15] LABS: Absolute Lymphocyte Count 3.36 X10^3/uL (0.83-4.51); Absolute Neutrophil Count 5.8 X10^3/uL (2.0-7.7); Basophil# 0.08 X10^3/uL; Basophil% 0.8 % (0-1); Eosinophil# 0.15 X10^3/uL; Eosinophils% 1.5 % (0-5); Hemoglobin 11.8 g/dL (12.0-15.0); Lymphocyte # 3.36 X10^3/ul (0.83-4.51); Lymphocyte % 32.8 % (19-41); Mean Corp Hgb Conc 31.1 g/dL (32-36); Mean Corpuscular Hgb 27.1 pg (27.0-32.0); Mean Corpuscular Volume 87.2 fL (81-99); Mean Platelet Vol. 9.9 fl (6.2-12.0); Monocyte# 0.75 X10^3/uL; Monocyte% 7.3 % (0-10); NRBC Flagged by Analyzer 0 % (0-5); Neutrophil # 5.82 X10^3/uL (2.7-7.7); Neutrophil % 56.9 % (47-70); Platelet Count 360 K/mm3 (150-450); RBC Distribution Width CV 13.5 % (11.6-14.6); RBC Distribution Width SD 42.6 fl (35.1-43.9); Red Blood Count 4.36 M/mm3 (4.2-5.4); White Blood Count 10.2 K/mm3 (4.4-11.0)
[2021-03-16 12:57] LABS: Vitamin D,25 Hydroxy 34.5 ng/mL
[2021-03-16 13:06] LABS: ALB/GLOB Ratio 0.8 RATIO (0.9-2.4); AST(SGOT) 25 U/L (15-37); Alanine Aminotransfer ALT/SGPT 39 U/L (13-56); Albumin, Serum 3.3 g/dL (3.2-5.0); Alkaline Phosphatase 83 U/L (45-117); Anion Gap 4 (5-15); BUN 12 mg/dL (7-18); BUN/Creat Ratio 18.5 RATIO (10-20); Chloride 105 mmol/L (98-107); Creatinine, Serum 0.65 mg/dL (0.55-1.02); EST Glomerular Filtration Rate 101 mL/min (>60); Est Glom Filt Rate - Afr Amer 122 mL/min (>60); Globulin 4.2 g/dL (2.2-4.2); Glucose 75 mg/dL (74-106); Potassium 4.2 mmol/L (3.5-5.1); Protein, Total 7.5 g/dL (6.4-8.2); Sodium Level 140 mmol/L (136-145); Thyroid Stim Hormone (TSH) 2.01 uIU/mL (0.358-3.74); Uric Acid 6.6 mg/dL (2.6-6.0)
== END ==
PROVIDERS: PCP Family Medicine Geriatric Medicine; Visit Provider Family Medicine Geriatric Medicine
DX: E55.9 Vitamin D deficiency, unspecified (principal); I10 Essential (primary) hypertension
CPT/HCPCS: 36415; 80053; 82306; 84443; 84550; 85025

== ENCOUNTER → 2021-03-24 16:27 | Outpatient (CLI) | payer MEDICAID, SELFPAY ==
[2020-07-21 11:18] VITALS: BMI 30.2
--- NOTE | 2021-03-24 16:30 | RAD_ITS ---
STUDY: X-RAY - LEFT KNEE REASON FOR EXAM: Left knee pain for one year. TECHNIQUE: 4 view(s) of the knee. COMPARISON: Radiographs 09/24/2020. FINDINGS: Normal visualized distal femur. Normal visualized proximal tibia and fibula. Normal proximal tibiofibular articulation. There are small marginal osteophytes and moderate joint space narrowing of the medial femorotibial compartment, mildly increased since the prior study. Normal lateral femorotibial compartment. Normal patellofemoral articulation. There is an enthesophyte at the superior pole of the patella. RAD/Knee 4 or More Views IMPRESSION: Arthrosis of the medial femorotibial compartment. Electronically Signed: Maulik Goodwin MD at 14:43 EDT Tel , Service support ,
== END ==
PROVIDERS: PCP Family Medicine Geriatric Medicine; Referring Provider Family Medicine Geriatric Medicine; Visit Provider Family Medicine Geriatric Medicine
DX: M25.569 Pain in unspecified knee (principal)
CPT/HCPCS: 73564

== ENCOUNTER 2021-04-06 17:39 | Outpatient (RCR) | payer MEDICAID, SELFPAY ==
[2020-07-21 11:18] VITALS: BMI 30.2
--- NOTE | 2021-04-06 18:45 | HP.PTEVAL_ITS ---
Patient's Visit Information SUHAS ABURTO is a 55 year old F referred to Physical Therapy by Dr. Cassius Kilpatrick MD with a diagnosis of Moderate OA L knee. Date of Evaluation: 04/06/21 Physical Therapist: GAYLA Robison - Visit Plan Frequency: 2x /Week Duration: 6 Weeks Plan: 2X/ week for 4-6 weeks for L hip and knee strengthening, functional activities, gait training with HEP. HEP: bridges 2 X 10, SLR 2 X 10, and S/L hip abd 2 X 10 - Subjective She has L knee arthritis. Last week she got a cortizone shot. It is still painful. The Dr numbed the area and got the shot last week. She is now walking better and at night she can now sleep with her legs together with a pillow between her knees. She has a sharp medial knee pain. They took an x-ray and was told that she has arthritis. She takes Tylenol or alieve. She had a nerve conduction test and she passed and MRI of knee was good. She also has an L ankle problems and her two little toes are numb sometimes. She has not been able to exercise. Stairs: sometimes they bother her. She has increase pain standing at work and she tries to sit and then stand back and forth. She wears the knee sleeve all the time. - Pain L knee pain Pain Intensity (Out of 10): 0 - Objective Gait: walks with decrease stance time on the L LE. R knee AROM: 0 degrees extension and 130 degrees knee flexion. L knee AROM: -2 degrees from full extension and 130 degrees flexion. LE MMT: hip flec B 4-/5, R knee ext 4/5 and L 4-/5, R knee flex 4/5 and L 4-/5, R hip abd 4/5 and L 4-/5. Pt is able to walk on heels and toes with UE support. Pt is able to do 3/4 normal ROM bridge. - Goals Goal 1:: I HEP Goal Time Frame: 4-6 Weeks Goal 2:: Decrease knee pain to be able to walk recreationally again Goal Time Frame: 4-6 Weeks Goal 3:: Increase L knee strength by 1/2 muscle grade (at time of eval: LE MMT: hip flec B 4-/5, R knee ext 4/5 and L 4-/5, R knee flex 4/5 and L 4-/5, R hip abd 4/5 and L 4-/5) - Rehabilitation Potential Rehabilitation Potential: Good - Anticipated Interventions Patient/Client Instruction: Educate patient on: Condition, Plan of Care For the Purpose of:: To decrease pain, To increase ROM, To improve nutrient delivery to tissue, To improve muscle performance and motor function, To improve ability to perform ADL's, To increase tolerance to activity/condition/position, To improve gait and locomotor functions, To improve health of tissue, To decrease soft tissue restriction, To increase flexibility/ROM Therapeutic Exercise to Include: Strength training, Endurance training, Balance training, Flexibilty training, Gait and locomotor training, Passive ROM, Active ROM For the Purpose of:: To decrease pain, To increase ROM, To improve muscle performance and motor function, To improve ability to perform ADL's, To improve gait and locomotor functions, To improve health of tissue, To decrease soft tissue restriction, To increase flexibility/ROM Functional Training to Include: Gait training For the Purpose of:: To improve gait and locomotor functions Manual Therapy Techniques to Include: Passive ROM, Soft tissue mobilization For the Purpose of:: To decrease swelling/inflammation, To increase ROM, To improve nutrient delivery to tissue, To improve muscle performance and motor function Ultrasound (thermal/non thermal): Yes For the Purpose of:: To decrease pain, To decrease swelling/inflammation, To increase ROM, To improve nutrient delivery to tissue Thank you for the opportunity to evaluate your patient. For Medicare and Medicare HMO plans, please review the plan of care and approve it. It will need to be FAXED BACK to us at [phone] for Medicare purposes. For Medicare only, by signing this I certify the plan of care. Please let me know if there are questions or concerns regarding this plan of care. Physician Signature: Date:___
--- NOTE | 2021-09-23 11:27 | HP.PTDCSUM ---
It has been my pleasure to treat SUHAS ABURTO referred by Dr. Cassius Kilpatrick MD, with the diagnosis of Moderate OA L knee for a total of 1 visit(s). Discharge Date: Please see the following information for a summary of their discharge status. L knee pain Pain Intensity (Out of 10): 0 Goal 1:: I HEP Goal 2:: Decrease knee pain to be able to walk recreationally again Goal 3:: Increase L knee strength by 1/2 muscle grade (at time of eval: LE MMT: hip flec B 4-/5, R knee ext 4/5 and L 4-/5, R knee flex 4/5 and L 4-/5, R hip abd 4/5 and L 4-/5) Plan: 2X/ week for 4-6 weeks for L hip and knee strengthening, functional activities, gait training with HEP. HEP: bridges 2 X 10, SLR 2 X 10, and S/L hip abd 2 X 10 If there are questions or concerns regarding this patient's physical therapy, please feel free to call me at [phone]. Thank you for the referral of this patient. Sincerely, Lata Witt, MPT Balance/Gait/Functional tests - Balance/Special Test Scores Lower Extremity Functional Score: 40
== END 2021-04-06 19:00 | disposition home or self-care (01) ==
LOC: PT 17:39
PROVIDERS: PCP Family Medicine Geriatric Medicine; Referring Provider Family Medicine Geriatric Medicine; Visit Provider Family Medicine Geriatric Medicine
DX: M17.12 Unilateral primary osteoarthritis, left knee (principal); M25.562 Pain in left knee
CPT/HCPCS: 97110; 97161

== ENCOUNTER → 2021-05-16 12:14 | Outpatient (CLI) | payer MEDICAID, SELFPAY ==
[2021-04-22 14:36] VITALS: BMI 30.2
--- NOTE | 2021-05-16 12:17 | BI_ITS ---
MAMMOGRAPHY - BILATERAL SCREENING REASON FOR EXAM: Female, 55 years old. Routine annual screening examination. PERTINENT HISTORY: Screening TECHNIQUE: Digital bilateral breast weston (3D mammographic acquisition) in the CC and MLO projections. 2-D mediolateral oblique (MLO) and craniocaudad (CC) views of both breasts were obtained. CAD: Full Field Digital Mammography with Computer Added Detection was performed. COMPARISON: Previous mammogram obtained on 05/03/2020 FINDINGS: Breast Composition: Heterogeneously dense There are no dominant masses or suspicious calcifications. No other significant abnormalities are identified. BI/SCRN MAMM (CAD)W/WESTON BILAT IMPRESSION: Stable bilateral screening mammogram. Yearly follow-up mammogram recommended. (A) ASSESSMENT CATEGORY: BIRADS Category 1: Negative. A letter regarding these results will be sent to the patient by the facility within 30 days. Approximately 10% of breast cancers are not detected by mammography. A normal mammogram should not delay biopsy of a clinically suspicious abnormality. [id number] Electronically Signed: Lukas Worthington DO at 15:58 EDT Tel , Service support ,
== END ==
PROVIDERS: PCP Family Medicine Geriatric Medicine; Referring Provider Family Medicine Geriatric Medicine; Visit Provider Family Medicine Geriatric Medicine
DX: Z12.31 Encounter for screening mammogram for malignant neoplasm of breast (principal)
CPT/HCPCS: 77063; 77067

== ENCOUNTER → 2021-09-19 10:09 | Outpatient (CLI) | payer MEDICAID, SELFPAY ==
[2021-09-19 12:24] LABS: Absolute Lymphocyte Count 3.58 X10^3/uL (0.83-4.51); Absolute Neutrophil Count 5.1 X10^3/uL (2.0-7.7); Eosinophil# 0.38 X10^3/uL; Eosinophils% 3.8 % (0-5); Hematocrit 38.5 % (37-47); Lymphocyte # 3.58 X10^3/ul (0.83-4.51); Lymphocyte % 35.4 % (19-41); Mean Corp Hgb Conc 31.2 g/dL (32-36); Mean Corpuscular Hgb 26.7 pg (27.0-32.0); Mean Corpuscular Volume 85.6 fL (81-99); Mean Platelet Vol. 10.1 fl (6.2-12.0); Monocyte# 0.86 X10^3/uL; Monocyte% 8.5 % (0-10); NRBC Flagged by Analyzer 0 % (0-5); Neutrophil # 5.13 X10^3/uL (2.7-7.7); Neutrophil % 50.6 % (47-70); Platelet Count 381 K/mm3 (150-450); RBC Distribution Width SD 43.4 fl (35.1-43.9); White Blood Count 10.1 K/mm3 (4.4-11.0)
[2021-09-19 12:36] LABS: Vitamin D,25 Hydroxy 35.3 ng/mL
[2021-09-19 12:45] LABS: ALB/GLOB Ratio 0.8 RATIO (0.9-2.4); AST(SGOT) 31 U/L (15-37); Alanine Aminotransfer ALT/SGPT 46 U/L (13-56); Albumin, Serum 3.3 g/dL (3.2-5.0); Alkaline Phosphatase 79 U/L (45-117); Anion Gap 8 (5-15); BUN 14 mg/dL (7-18); BUN/Creat Ratio 19.1 RATIO (10-20); Chloride 105 mmol/L (98-107); Creatinine, Serum 0.73 mg/dL (0.55-1.02); EST Glomerular Filtration Rate 87 mL/min (>60); Est Glom Filt Rate - Afr Amer 106 mL/min (>60); Globulin 4.2 g/dL (2.2-4.2); Glucose 87 mg/dL (74-106); Protein, Total 7.5 g/dL (6.4-8.2); Sodium Level 140 mmol/L (136-145); Thyroid Stim Hormone (TSH) 2.31 uIU/mL (0.358-3.74); Uric Acid 7.5 mg/dL (2.6-6.0)
== END ==
PROVIDERS: PCP Family Medicine Geriatric Medicine; Visit Provider Family Medicine Geriatric Medicine
DX: E55.9 Vitamin D deficiency, unspecified (principal); I10 Essential (primary) hypertension; M10.9 Gout, unspecified
CPT/HCPCS: 36415; 80053; 82306; 84443; 84550; 85025

== ENCOUNTER 2021-12-15 14:36 | Outpatient (CLI) | payer MEDICAID, SELFPAY ==
[2021-12-15 15:29] LABS: Absolute Lymphocyte Count 3.56 X10^3/uL (0.83-4.51); Absolute Neutrophil Count 6.4 X10^3/uL (2.0-7.7); Basophil# 0.08 X10^3/uL; Basophil% 0.7 % (0-1); Eosinophil# 0.12 X10^3/uL; Eosinophils% 1.1 % (0-5); Hematocrit 40.4 % (37-47); Hemoglobin 13.1 g/dL (12.0-15.0); Lymphocyte # 3.56 X10^3/ul (0.83-4.51); Lymphocyte % 32.8 % (19-41); Mean Corp Hgb Conc 32.4 g/dL (32-36); Mean Corpuscular Hgb 28.5 pg (27.0-32.0); Mean Corpuscular Volume 87.8 fL (81-99); Mean Platelet Vol. 9.4 fl (6.2-12.0); Monocyte# 0.63 X10^3/uL; Monocyte% 5.8 % (0-10); NRBC Flagged by Analyzer 0 % (0-5); Neutrophil # 6.37 X10^3/uL (2.7-7.7); Neutrophil % 58.7 % (47-70); Platelet Count 411 K/mm3 (150-450); RBC Distribution Width CV 14.2 % (11.6-14.6); RBC Distribution Width SD 45.2 fl (35.1-43.9); White Blood Count 10.9 K/mm3 (4.4-11.0)
[2021-12-15 16:02] LABS: Anion Gap 4 (5-15); BUN 15 mg/dL (7-18); BUN/Creat Ratio 17.3 RATIO (10-20); Calcium,Total 9.6 mg/dL (8.5-10.1); Chloride 107 mmol/L (98-107); Creatinine, Serum 0.87 mg/dL (0.55-1.02); EST Glomerular Filtration Rate 72 mL/min (>60); Est Glom Filt Rate - Afr Amer 87 mL/min (>60); Glucose 99 mg/dL (74-106); Potassium 3.9 mmol/L (3.5-5.1); Sodium Level 138 mmol/L (136-145)
== END 2021-12-15 23:59 | disposition home or self-care (01) ==
LOC: POLAB3 14:36
PROVIDERS: PCP Family Medicine Geriatric Medicine; Visit Provider Family Medicine Geriatric Medicine
DX: R53.83 Other fatigue (principal)
CPT/HCPCS: 80048; 36415; 85025

== ENCOUNTER 2021-12-15 16:19 | Outpatient (CLI) | payer MEDICAID, SELFPAY | END 2021-12-15 23:59 | disposition home or self-care (01) | PROVIDERS: PCP Family Medicine Geriatric Medicine; Visit Provider Family Medicine Geriatric Medicine | DX: R68.83 Chills (without fever) (principal) | CPT/HCPCS: 87635; 36415; 80048; 85025; 87804; 87807; U0003; U0005 ==

== ENCOUNTER → 2022-07-11 | Outpatient (CLI) | payer MEDICAID, SELFPAY | END | disposition home or self-care (01) | LOC: LABSPEC 15:12 | PROVIDERS: PCP Internal Medicine; Referring Provider Physician Assistant; Visit Provider Physician Assistant | DX: Z11.52 Encounter for screening for COVID-19 (principal) | CPT/HCPCS: 87635; U0003; U0005 ==

== ENCOUNTER → 2022-11-16 | Outpatient (CLI) | payer MEDICAID, SELFPAY ==
[2022-11-16 17:50] LABS: Absolute Lymphocyte Count 4.43 X10^3/uL (0.83-4.51); Absolute Neutrophil Count 4.8 X10^3/uL (2.0-7.7); Basophil# 0.11 X10^3/uL; Basophil% 1.1 % (0-1); Eosinophil# 0.31 X10^3/uL; Hematocrit 38.6 % (37-47); Hemoglobin 12.2 g/dL (12.0-15.0); Lymphocyte # 4.43 X10^3/ul (0.83-4.51); Lymphocyte % 42.6 % (19-41); Mean Corp Hgb Conc 31.6 g/dL (32-36); Mean Corpuscular Volume 88.7 fL (81-99); Mean Platelet Vol. 9.3 fl (6.2-12.0); Monocyte% 6.7 % (0-10); NRBC Flagged by Analyzer 0 % (0-5); Neutrophil % 46.1 % (47-70); Platelet Count 396 K/mm3 (150-450); RBC Distribution Width CV 13.2 % (11.6-14.6); Red Blood Count 4.35 M/mm3 (4.2-5.4); White Blood Count 10.4 K/mm3 (4.4-11.0)
[2022-11-16 18:17] LABS: ALB/GLOB Ratio 0.9 RATIO (0.9-2.4); AST(SGOT) 27 U/L (15-37); Alanine Aminotransfer ALT/SGPT 36 U/L (13-56); Albumin, Serum 3.7 g/dL (3.2-5.0); Alkaline Phosphatase 71 U/L (45-117); Anion Gap 5 (5-15); BUN 18 mg/dL (7-18); BUN/Creat Ratio 24.4 RATIO (10-20); Calcium,Total 9.4 mg/dL (8.5-10.1); Chloride 105 mmol/L (98-107); Cholesterol 213 mg/dL (200); Creatinine, Serum 0.74 mg/dL (0.55-1.02); EST Glomerular Filtration Rate 86 mL/min (>60); Est Glom Filt Rate - Afr Amer 104 mL/min (>60); Globulin 4.1 g/dL (2.2-4.2); Glucose 99 mg/dL (74-106); High Density Lipoprotein 39 mg/dL; Potassium 4.4 mmol/L (3.5-5.1); Protein, Total 7.8 g/dL (6.4-8.2); Sodium Level 140 mmol/L (136-145); Thyroid Stim Hormone (TSH) 1.72 uIU/mL (0.358-3.74); Triglycerides 264 mg/dL; Very Low Density Lipoprotein 53 mg/dL (5-40)
[2022-11-16 18:18] LABS: Hemoglobin A1c 5.7 % (3.8-5.6)
[2022-11-16 18:22] LABS: Vitamin B12 > 2000 pg/mL (211-911)
== END | disposition home or self-care (01) ==
PROVIDERS: PCP Family Medicine; Referring Provider Family Medicine; Visit Provider Family Medicine
DX: I10 Essential (primary) hypertension (principal); R53.83 Other fatigue
CPT/HCPCS: 36415; 80053; 80061; 82607; 83036; 83735; 84443; 85025

== ENCOUNTER 2022-11-30 16:00 | Outpatient (RCR) | payer MEDICAID, SELFPAY ==
--- NOTE | 2022-09-04 13:15 | HP.PTEVAL ---
Patient's Visit Information SUHAS ABURTO is a 57 year old F referred to Physical Therapy by Dr. Matt Gill DO with a diagnosis of UNILATERAL PRIMARY OSTEOARTHRITIS ,LEFT KNEE. Date of Evaluation: 09/04/22 Physical Therapist: Lamonte Denson PT, Cert MDT, OCS - Visit Plan Frequency: 2x /Week Duration: 4 Weeks Plan: PT INTERVETIONS ROM/FLEXABLITY LEFT KNEE ,STRENGTHNEING QUADS/HAMS/HIPS ,FUNCTIONAL TRAINING AND MODALTIES - Subjective This 57 y/o female presents to physical therapy with left knee OA. Patient has knee pain ~ 2 years. Patient had DJD mod arthrosis medial and severe joint narrowing. Patient had one injection effleucca . Patient pain located medial joint described as ache sharp pain standing. Aggravating walking ,standing stairs painful unable squatting/kneeling. Patient pain affects sleeping. Patient pain affects QOL and function. Denies paresthesia/tingling. Patient goals not to have pain. No injury or trauma. SOCAIL: . VOACTION: [employer] - Pain Right Knee Pain Intensity (Out of 10): 6 Pain Intensity Range: 10 - Objective POSTURE: mild forward posture varum knne flexed. GAIT: reciprocal pattern mild decrease stance time antalgic gait varum knee. NEURO: intact. PALPATION: medial joint line tenderness. AROM: 3 -120 degrees supine knee flexion. MMT: quads 18.8 ,hamstrings 16.7 ,hip flexion 15.7 , hip abd 15,8. FLEXABILITY: hamstrings min tight - Special Tests L Knee Yessi - Meniscus: Negative L Knee Valgus - MCL: Negative L Knee Varus - LCL: Negative L Knee Patellar Apprehension - PFS: Positive L Knee Patellar Grind - PFS: Positive - Balance/Special Test Scores Lower Extremity Functional Score: 27 - Goals Goal 1:: Patient to be I with HEP for knee Goal Time Frame: 4-6 Weeks Goal 2:: Patient to improve strength peak force by 5-10 to improve function and gait Goal Time Frame: 4-6 Weeks Goal 3:: Patient to improve AROM knee flexion by 5-10 degrees to improve stairs Goal Time Frame: 4-6 Weeks Goal 4:: Patient to demonstrate 50 % improvement with decrease pain and improved function Goal Time Frame: 4-6 Weeks Goal 5:: Patient to improve LFES score by 5 points to improve QOL and function Goal Time Frame: 4-6 Weeks - Rehabilitation Potential Physical Therapy Diagnosis: This patient has left knee pain due to mod DJD with decrease ROM ,strength quads/hams hip ,antalgic gait ,stairs thus benefit from skilled PT Rehabilitation Potential: Fair - Anticipated Interventions Patient/Client Instruction: Educate patient on: Condition, Plan of Care For the Purpose of:: To decrease pain, To increase ROM, To improve muscle performance and motor function, To improve ability to perform ADL's, To increase tolerance to activity/condition/position, To improve ability of physical actions for home/community/work/leisure, To improve gait and locomotor functions, To improve health of tissue, To decrease soft tissue restriction, To increase flexibility/ROM Therapeutic Exercise to Include: Strength training, Endurance training, Balance training, Postural training, Flexibilty training, Active ROM Comment: QUADS/HAMS/HIP For the Purpose of:: To decrease pain, To increase ROM, To improve muscle performance and motor function, To improve ability to perform ADL's, To increase tolerance to activity/condition/position, To improve ability of physical actions for home/community/work/leisure, To improve health of tissue, To decrease soft tissue restriction, To increase flexibility/ROM TENS: Yes IF ES: Yes Cryotherapy (ice pack, ice massage): Yes Thermo therapy (hot pack): Yes Ultrasound (thermal/non thermal): Yes For the Purpose of:: To decrease pain, To increase ROM, To improve muscle performance and motor function, To improve ability to perform ADL's, To increase tolerance to activity/condition/position, To improve ability of physical actions for home/community/work/leisure, To improve health of tissue, To decrease soft tissue restriction, To increase flexibility/ROM Thank you for the opportunity to evaluate your patient. For Medicare and Medicare HMO plans, please review the plan of care and approve it. It will need to be FAXED BACK to us at [phone] for Medicare purposes. For Medicare only, by signing this I certify the plan of care. Please let me know if there are questions or concerns regarding this plan of care. Physician Signature: Date:
--- NOTE | 2022-11-30 16:27 | HP.PTDCSUM ---
It has been my pleasure to treat SUHAS ABURTO referred by Dr. Matt Gill DO, with the diagnosis of UNILATERAL PRIMARY OSTEOARTHRITIS ,LEFT KNEE for a total of 14 visit(s). Discharge Date: 11/30/22 Please see the following information for a summary of their discharge status. Subjective: About the same ,tired from weather Right Knee Pain Intensity (Out of 10): 0 Left Knee Pain Intensity (Out of 10): 8 % Improvement: 0 Objective/Function: POSTURE: mild forward posture. GAIT : reciprocal pattern with antalgic gait right side. NEURO: denies paresthesia/tingling. AROM: supine knee flexion 0-130 degrees. MMT: 4/5 quads/hams Goal 1:: Patient to be I with HEP for knee Goal Progress: Goal Met Goal 2:: Patient to improve strength peak force by 5-10 to improve function and gait Goal Progress: Progressing Goal 3:: Patient to improve AROM knee flexion by 5-10 degrees to improve stairs Goal Progress: Goal Met Goal 4:: Patient to demonstrate 50 % improvement with decrease pain and improved function Goal 5:: Patient to improve LFES score by 5 points to improve QOL and function Goal Progress: Goal Met Plan: D/C Discharge Comments: HEP AND GYM If there are questions or concerns regarding this patient's physical therapy, please feel free to call me at [phone]. Thank you for the referral of this patient. Sincerely, Lamonte Denson, PT, Cert MDT, OCS Balance/Gait/Functional tests - Balance/Special Test Scores Lower Extremity Functional Score: 48
--- NOTE | 2023-02-15 15:30 | HP.PT.NRP ---
SUHAS ABURTO was seen in my office for initial evaluation on 09/04/22. The following Plan of Care was established for this patient: Initial Frequency: 2x /Week Initial Duration: 4 Weeks Patient/Client Instruction: Educate patient on: Condition, Plan of Care For the Purpose of:: To decrease pain, To increase ROM, To improve muscle performance and motor function, To improve ability to perform ADL's, To increase tolerance to activity/condition/position, To improve ability of physical actions for home/community/work/leisure, To improve gait and locomotor functions, To improve health of tissue, To decrease soft tissue restriction, To increase flexibility/ROM Therapeutic Exercise to Include: Strength training, Endurance training, Balance training, Postural training, Flexibilty training, Active ROM For the Purpose of:: To decrease pain, To increase ROM, To improve muscle performance and motor function, To improve ability to perform ADL's, To increase tolerance to activity/condition/position, To improve ability of physical actions for home/community/work/leisure, To improve health of tissue, To decrease soft tissue restriction, To increase flexibility/ROM TENS: Yes IF ES: Yes Cryotherapy (ice pack, ice massage): Yes Thermo therapy (hot pack): Yes Ultrasound (thermal/non thermal): Yes For the Purpose of:: To decrease pain, To increase ROM, To improve muscle performance and motor function, To improve ability to perform ADL's, To increase tolerance to activity/condition/position, To improve ability of physical actions for home/community/work/leisure, To improve health of tissue, To decrease soft tissue restriction, To increase flexibility/ROM This patient was last seen in our office . Pertinent comments regarding their Physical therapy will appear below: Patient was seen for PT for left knee OA for Aquatic Therapy for ROM and strengthening and progressing to land strengthening. At this point I will be discontinuing this patient from physical therapy. I would be happy to see this patient again in the future if found appropriate by the physician. Thank you! Lamonte Denson, PT, Cert MDT, OCS Balance/Gait/Functional tests - Balance/Special Test Scores Lower Extremity Functional Score: 44
== END 2022-11-30 19:00 | disposition home or self-care (01) ==
LOC: PT 16:00
PROVIDERS: PCP Internal Medicine; Referring Provider Orthopaedic Surgery; Visit Provider Orthopaedic Surgery
DX: M17.12 Unilateral primary osteoarthritis, left knee (principal)
CPT/HCPCS: 97110; 97113; 97162; 97530

== ENCOUNTER → 2023-06-26 | Outpatient (CLI) | payer MEDICAID, SELFPAY ==
[2023-06-26 17:40] LABS: Absolute Lymphocyte Count 4.16 X10^3/uL (0.83-4.51); Absolute Neutrophil Count 4.2 X10^3/uL (2.0-7.7); Basophil# 0.07 X10^3/uL; Basophil% 0.7 % (0-1); Eosinophil# 0.31 X10^3/uL; Eosinophils% 3.2 % (0-5); Hematocrit 37.6 % (37-47); Hemoglobin 11.6 g/dL (12.0-15.0); Lymphocyte # 4.16 X10^3/ul (0.83-4.51); Lymphocyte % 43.6 % (19-41); Mean Corp Hgb Conc 30.9 g/dL (32-36); Mean Corpuscular Hgb 27.8 pg (27.0-32.0); Mean Platelet Vol. 9.9 fl (6.2-12.0); Monocyte# 0.71 X10^3/uL; Monocyte% 7.4 % (0-10); NRBC Flagged by Analyzer 0 % (0-5); Neutrophil # 4.21 X10^3/uL (2.7-7.7); Neutrophil % 44.2 % (47-70); Platelet Count 381 K/mm3 (150-450); RBC Distribution Width CV 13.6 % (11.6-14.6); RBC Distribution Width SD 44.4 fl (35.1-43.9); Red Blood Count 4.18 M/mm3 (4.2-5.4); White Blood Count 9.6 K/mm3 (4.4-11.0)
[2023-06-26 18:35] LABS: ALB/GLOB Ratio 0.8 RATIO (0.9-2.4); AST(SGOT) 22 U/L (15-37); Alanine Aminotransfer ALT/SGPT 35 U/L (13-56); Albumin, Serum 3.4 g/dL (3.2-5.0); Alkaline Phosphatase 70 U/L (45-117); Anion Gap 5 (5-15); BUN 11 mg/dL (7-18); BUN/Creat Ratio 15.3 RATIO (10-20); Calcium,Total 8.9 mg/dL (8.5-10.1); Chloride 110 mmol/L (98-107); Creatinine, Serum 0.72 mg/dL (0.55-1.02); EST Glomerular Filtration Rate 89 mL/min (>60); Est Glom Filt Rate - Afr Amer 107 mL/min (>60); Globulin 4.2 g/dL (2.2-4.2); Glucose 110 mg/dL (74-106); Potassium 4.1 mmol/L (3.5-5.1); Protein, Total 7.6 g/dL (6.4-8.2); Sodium Level 141 mmol/L (136-145); Thyroid Stim Hormone (TSH) 3.49 uIU/mL (0.358-3.74)
== END | disposition home or self-care (01) ==
LOC: MFPLAB 16:11
PROVIDERS: PCP Family Medicine; Visit Provider Family Medicine
DX: F32.9 Major depressive disorder, single episode, unspecified (principal)
CPT/HCPCS: 36415; 80053; 84443; 85025

== ENCOUNTER → 2023-07-19 | Outpatient (CLI) | payer MEDICAID, SELFPAY ==
--- NOTE | 2023-07-19 12:35 | RAD_ITS ---
INDICATION: Right shoulder pain EXAMINATION/TECHNIQUE: X-RAY - RIGHT XR Shoulder Min 2 Views 4 VIEWS COMPARISON: FINDINGS: No acute fracture or dislocation. No destructive bone changes. Joint spaces are well-maintained. Normal alignment. Soft tissues are unremarkable. No radiopaque foreign body or soft tissue gas. RAD/Shoulder min 2 Views IMPRESSION: Negative. Electronically Signed: Flory Fernandez MD at 20:08 EDT Reading Location ID and State: [id number] / Tel , Service support ,
== END | disposition home or self-care (01) ==
LOC: MTRAD 12:33
PROVIDERS: PCP Family Medicine; Referring Provider Family Medicine; Visit Provider Family Medicine
DX: M25.511 Pain in right shoulder (principal)
CPT/HCPCS: 73030

== ENCOUNTER → 2023-09-27 | Outpatient (CLI) | payer SELFPAY ==
[2023-09-27 15:24] LABS: Absolute Lymphocyte Count 3.85 X10^3/uL (0.83-4.51); Absolute Neutrophil Count 4.4 X10^3/uL (2.0-7.7); Eosinophil# 0.41 X10^3/uL; Eosinophils% 4.3 % (0-5); Hematocrit 36.2 % (37-47); Hemoglobin 11.1 g/dL (12.0-15.0); Lymphocyte # 3.85 X10^3/ul (0.83-4.51); Lymphocyte % 40.4 % (19-41); Mean Corp Hgb Conc 30.7 g/dL (32-36); Mean Corpuscular Hgb 27.5 pg (27.0-32.0); Mean Corpuscular Volume 89.6 fL (81-99); Mean Platelet Vol. 9.7 fl (6.2-12.0); Monocyte# 0.64 X10^3/uL; Monocyte% 6.7 % (0-10); NRBC Flagged by Analyzer 0 % (0-5); Neutrophil # 4.42 X10^3/uL (2.7-7.7); Neutrophil % 46.4 % (47-70); Platelet Count 388 K/mm3 (150-450); RBC Distribution Width CV 13.4 % (11.6-14.6); RBC Distribution Width SD 44.4 fl (35.1-43.9); Red Blood Count 4.04 M/mm3 (4.2-5.4); White Blood Count 9.5 K/mm3 (4.4-11.0)
[2023-09-27 16:04] LABS: Anion Gap 4 (5-15); BUN 13 mg/dL (7-18); BUN/Creat Ratio 18.7 RATIO (10-20); Calcium,Total 9.1 mg/dL (8.5-10.1); Chloride 110 mmol/L (98-107); EST Glomerular Filtration Rate 92 mL/min (>60); Est Glom Filt Rate - Afr Amer 111 mL/min (>60); Glucose 84 mg/dL (74-106); Sodium Level 139 mmol/L (136-145)
[2023-09-27 16:21] LABS: Internal QC Validated? YES +Cl - CLEAR BKGD; Monotest Negative (Negative); Record Kit Lot#, Mono 13231163
== END | disposition home or self-care (01) ==
PROVIDERS: PCP Family Medicine; Visit Provider Nurse Practitioner Family
DX: R53.83 Other fatigue (principal)
CPT/HCPCS: 36415; 80048; 85025; 86308

== ENCOUNTER 2024-01-08 13:22 | Emergency (ER) | payer SELFPAY ==
[2024-01-08 13:23] VITALS: BP 153/77; PULSE 72; RESP 12; RESP 14; TEMP 36.3; O2SAT 100; O2SAT 98
--- NOTE | 2024-01-08 14:27 | EX.ED.DYSGE1 ---
HPI History of Present Illness Chief Complaint: Med Refill Informant: patient Onset/Context/Timing Onset: Today Timing: Continuous Worsened by: Nothing Relieved by: Nothing Narrative Narrative: Patient presents for medication refill. Patient states she is out of all of her medications. Patient states these are vitamin D3, loratadine, and atenolol. Patient states she does not have insurance and does not have a primary care physician to get these refilled. Patient denies any chest pain or shortness of breath. Patient denies any nausea or vomiting. Patient denies any fevers or chills. Patient states that her eyes feel itchy, worse on the left. Patient denies any changes in vision. [facility] Medical History Abnormal EKG Anemia Anxiety Anxiety and depression Arthritis Cataract Chest pain Depression GERD (gastroesophageal reflux disease) Hyperlipemia Hypertension Osteoarthritis of left knee Overweight Vitamin D deficiency Home Medications cyanocobalamin (vitamin B-12) 1,000 mcg capsule 1,000 mcg PO DAILY 12/19/18 [History Last Taken Unknown] ascorbic acid (vitamin C) 500 mg tablet 500 mg PO DAILY PRN 12/29/19 [History Last Taken Unknown] citalopram 10 mg tablet 10 mg PO DAILY 02/22/22 [History Last Taken Unknown] multivitamin 1 tab PO DAILY 02/22/22 [History Last Taken Unknown] acetaminophen 500 mg tablet 500 - 1,000 mg (1 - 2 x 500 mg) PO TID-QID PRN fever or pain #60 tabs 07/11/22 [Rx Last Taken Unknown] ibuprofen 600 mg tablet 600 mg PO TID-QID PRN pain #60 tabs 07/11/22 [Rx Last Taken Unknown] atenolol 25 mg tablet 25 mg PO QDAY #30 tabs 01/08/24 [Rx Last Taken Unknown] cholecalciferol (vitamin D3) 25 mcg (1,000 unit) capsule 1,000 unit PO QDAY #30 caps 01/08/24 [Rx Last Taken Unknown] loratadine 10 mg tablet 10 mg PO QDAY PRN allergy symptoms #30 tabs 01/08/24 [Rx Last Taken Unknown] Allergy/AdvReac Type Severity Reaction Status Date / Time atorvastatin [From Lipitor] Allergy Severe Bad skin Verified 02/02/23 10:47 reaction Sulfa (Sulfonamide Allergy Unknown Verified 02/02/23 10:47 Antibiotics) Family History Brother , age 55 or 56 Myocardial infarction Sudden cardiac Brother , 55 or 56 , from liver failure CAD (coronary artery disease) S/P CABG (coronary artery bypass graft) Liver failure Mother Cancer throat Surgical History History of History of wisdom tooth extraction, class IV edentulism Social History household members: family number of children: 3 current occupational status: unemployed pets and animals: No other: Patient has 1 child and 2 stepchildren Smoking Status: Current every day smoker tobacco type: cigarettes alcohol intake: never substance use type: does not use caffeine: Yes what type of physical activity do you participate in: none seatbelt use: always do you feel safe at home: Yes additional social history: - Shun BUSTOS ROS ED Constitutional Constitutional ED: Denies chills or fever(s) Eyes Eyes: Denies blurry vision or change in vision ENT ENT ED: Denies rhinorrhea or sore throat Cardiovascular Cardiovascular: Denies chest pain or palpitations Respiratory/Chest Respiratory/Chest: Denies cough or dyspnea Gastrointestinal Gastrointestinal: Denies nausea or vomiting Genitourinary Genitourinary ED: Denies dysuria or hematuria Musculoskeletal Musculoskeletal: Denies back pain or neck pain Integumentary Denies abscess or rash Neurologic Neurologic: Denies headache(s) or weakness Allergic/Immunologic Allergic/Immunologic ED: Denies mouth swelling or urticaria EXAM Physical Exam Const Vital Signs: 01/08/24 13:23 01/08/24 13:23 01/08/24 14:23 Temperature 97.3 F L Temperature Source Temporal Pulse Rate 72 72 Respiratory Rate 12 14 Respiratory Effort Normal Non-Labored Respiratory Pattern Normal Blood Pressure 153/77 H 153/77 H Blood Pressure Mean 102 102 Pulse Ox 98 100 Oxygen Delivery Method Room Air Room Air Positive well nourished and well developed General Appearance ED: well developed and NAD HEENT Reports moist mucous membranes Eyes PERRL and EOMs intact bilaterally Neck supple and no JVD Resp normal respiratory effort and clear to auscultation bilaterally Cardio regular rate and regular rhythm GI non-tender and non-distended Palpation: soft Extremity normal to inspection Neuro oriented x3, CN's II-XII intact bilaterally and no sensory deficits noted Sensorium / Orientation: alert Motor Exam: strength 5/5 throughout Psych mental status grossly normal MDM MDM MDM Narrative Medical decision making narrative: Patient was given refills for her medications. Patient was given a referral for primary care physician. Patient was instructed to follow-up with her primary care physician for further medication refills. Patient understood and was agreeable with the plan. All questions were answered. Discharge Plan Triage Chief Complaint: Med Refill ED Provider: Ezekiel Poole Dx/Rx/DC Orders Clinical Impression: Encounter for medication refill, Hypertension Instructions: ED Hypertension, Established, Med Refill Prescriptions: Continued atenolol 25 mg tablet 25 mg PO QDAY Qty: 30 0RF loratadine 10 mg tablet 10 mg PO QDAY PRN (Reason: allergy symptoms) Qty: 30 0RF cholecalciferol (vitamin D3) 25 mcg (1,000 unit) capsule 1,000 unit PO QDAY Qty: 30 0RF No Action cyanocobalamin (vitamin B-12) 1,000 mcg capsule 1,000 mcg PO DAILY ascorbic acid (vitamin C) 500 mg tablet 500 mg PO DAILY PRN citalopram 10 mg tablet 10 mg PO DAILY multivitamin Tablet 1 tab PO DAILY ibuprofen 600 mg tablet 600 mg PO TID-QID PRN (Reason: pain) Qty: 60 0RF acetaminophen 500 mg tablet 500 - 1,000 mg PO TID-QID PRN (Reason: fever or pain) Qty: 60 0RF Primary Care Provider: Shelia Steele Referrals: Shelia Steele, [Primary Care Provider] - 5-7 Days Cassidy Astudillo [Non-Staff] - 5-7 Days Disposition Disposition: Home, Self Care
--- NOTE | 2024-01-08 14:51 | ED.RN ---
pt given handout on [facility], voices understanding
== END 2024-01-08 14:51 | disposition home or self-care (01) ==
PROVIDERS: Emergency Provider Emergency Medicine; PCP Family Medicine; Visit Provider Emergency Medicine
DX: Z76.0 Encounter for issue of repeat prescription (principal); I10 Essential (primary) hypertension; F17.290 Nicotine dependence, other tobacco product, uncomplicated
CPT/HCPCS: 99282

== ENCOUNTER 2024-03-31 09:58 | Emergency (ER) | payer SELFPAY ==
[2024-03-31 09:59] VITALS: BP 148/87; PULSE 75; RESP 18; TEMP 36.4; O2SAT 98
--- NOTE | 2024-03-31 10:12 | EX.ED.DYSGE1 ---
HPI History of Present Illness Chief Complaint: General Illness Informant: patient Onset/Context/Timing Onset: Days (3 days) Narrative Narrative: Patient presents with a 3-day history of headache and bodyaches. She feels that she may have the flu. She went to urgent care where a COVID test was negative. She has been taking Tylenol and ibuprofen but states that is not helping her symptoms. No recent injury. No measured fever. She has very minimal cough. No abdominal pain, vomiting, or diarrhea. No urinary symptoms. [facility] Medical History Anxiety and depression Osteoarthritis of left knee Cataract Arthritis GERD (gastroesophageal reflux disease) Vitamin D deficiency Overweight Anxiety Depression Hyperlipemia Anemia Hypertension Abnormal EKG Chest pain Home Medications ?Medication ?Instructions ?Recorded ?Last Taken ?Type cyanocobalamin (vitamin B-12) 1,000 mcg PO DAILY 12/19/18 Unknown History 1,000 mcg capsule ascorbic acid (vitamin C) 500 mg 500 mg PO DAILY PRN 12/29/19 Unknown History tablet citalopram 10 mg tablet 10 mg PO DAILY 02/22/22 Unknown History multivitamin 1 tab PO DAILY 02/22/22 Unknown History acetaminophen 500 mg tablet 500 - 1,000 mg (1 - 2 x 500 mg) PO 07/11/22 Unknown Rx TID-QID PRN fever or pain #60 tabs ibuprofen 600 mg tablet 600 mg PO TID-QID PRN pain #60 tabs 07/11/22 Unknown Rx atenolol 25 mg tablet 25 mg PO QDAY #30 tabs 01/08/24 Unknown Rx cholecalciferol (vitamin D3) 25 1,000 unit PO QDAY #30 caps 01/08/24 Unknown Rx mcg (1,000 unit) capsule loratadine 10 mg tablet 10 mg PO QDAY PRN allergy symptoms 01/08/24 Unknown Rx #30 tabs diphenhydramine HCl 25 mg capsule 25 mg PO TID PRN headache #10 caps 03/31/24 Unknown Rx (Benadryl) ketorolac 10 mg tablet 10 mg PO Q8H PRN pain 3 days #10 03/31/24 Unknown Rx tabs prochlorperazine maleate 10 mg 10 mg PO Q8H PRN nausea and 03/31/24 Unknown Rx tablet (Compazine) vomiting #10 tabs Allergy/AdvReac Type Severity Reaction Status Date / Time atorvastatin (From Lipitor) Allergy Severe Bad skin Verified 03/31/24 09:59 reaction Sulfa (Sulfonamide Allergy Unknown Verified 03/31/24 09:59 Antibiotics) Family History Brother , age 55 or 56 Myocardial infarction Sudden cardiac Brother , 55 or 56 , from liver failure CAD (coronary artery disease) S/P CABG (coronary artery bypass graft) Liver failure Mother Cancer throat Surgical History History of wisdom tooth extraction, class IV edentulism History of Social History household members: family number of children: 3 current occupational status: unemployed pets and animals: No other: Patient has 1 child and 2 stepchildren Smoking Status: Current every day smoker tobacco type: cigarettes alcohol intake: never substance use type: does not use caffeine: Yes what type of physical activity do you participate in: none seatbelt use: always do you feel safe at home: Yes additional social history: - [place] ROS ROS ED Constitutional Constitutional ED: Denies fever(s) Eyes Eyes: Denies change in vision or discharge from eye(s) ENT ENT ED: Denies discharge from eye(s), rhinorrhea or sore throat Cardiovascular Cardiovascular: Denies chest pain or palpitations Respiratory/Chest Respiratory/Chest: Reports cough; Denies dyspnea Gastrointestinal Gastrointestinal: Denies abdominal pain, diarrhea, nausea or vomiting Genitourinary Genitourinary ED: Denies dysuria Musculoskeletal Musculoskeletal: Reports myalgias Integumentary Denies Abrasions or rash Neurologic Neurologic: Reports headache(s); Denies weakness Psychiatric Psychiatric: Denies anxiety or depression Allergic/Immunologic Allergic/Immunologic ED: Denies lip swelling or urticaria EXAM Physical Exam Const Vital Signs: 03/31/24 09:59 03/31/24 10:40 Temperature 97.5 F L Temperature Source Temporal Pulse Rate 75 Respiratory Rate 18 Respiratory Effort Normal Respiratory Pattern Normal Blood Pressure 148/87 H Blood Pressure Mean 107 Pulse Ox 98 Oxygen Delivery Method Room Air Positive well nourished and well developed General Appearance ED: well developed HEENT Reports moist mucous membranes Eyes EOMs intact bilaterally Chest Wall inspection of chest normal and palpation of chest normal Resp normal respiratory effort and clear to auscultation bilaterally Cardio regular rate and regular rhythm GI non-tender Palpation: soft Extremity normal to inspection Neuro oriented x3 and no sensory deficits noted Motor Exam: strength 5/5 throughout Psych Mood & Affect: anxious and tearful Skin no rashes or lesions noted MDM MDM MDM Narrative Medical decision making narrative: IV line established. Patient given Toradol, Compazine, Benadryl, IV fluids. Labwork obtained to evaluate for leukocytosis, anemia, and electrolyte derangement. Urinalysis obtained to evaluate for infection/hematuria. Swab for COVID, influenza, and RSV will be obtained. History & Record Review Discussion w/independent historian: Patient Lab Data Attestation: I reviewed the patient's lab results. Labs: Laboratory Results - last 24 hr 03/31/24 10:30 WBC 10.2 RBC 4.42 Hgb 12.0 Hct 38.4 MCV 86.9 MCH 27.1 MCHC 31.3 L RDW Std Deviation 41.1 RDW Coeff of Jazmin 13.0 Plt Count 393 MPV 9.4 Immature Gran % (Auto) 1.100 H Neut % (Auto) 53.0 Lymph % (Auto) 34.8 [place] % (Auto) 6.9 Eos % (Auto) 3.2 Baso % (Auto) 1.0 Absolute Neuts (auto) 5.4 Absolute Lymphs (auto) 3.54 Nucleated RBC % 0 Sodium 137 Potassium 3.9 Chloride 107 Carbon Dioxide 25.0 Anion Gap 5 BUN 15 Creatinine 0.81 Est GFR (MDRD) Af Amer 94 Est GFR (MDRD) Non-Af 77 BUN/Creatinine Ratio 18.6 Glucose 129 H Calcium 9.3 Urine Color Straw Urine Clarity Clear Urine pH 6.0 Ur Specific [place] 1.010 Urine Protein Negative Urine Glucose (UA) Normal Urine Ketones Negative Urine Occult Blood Negative Urine Nitrite Negative Urine Bilirubin Negative Urine Urobilinogen Normal Ur Leukocyte Esterase Negative Urine RBC 0 SEEN Urine WBC 0 SEEN Ur Squamous Epith Cells 0-5 SEEN Urine Bacteria 1+ Urine Mucus 1+ Treatment and Re-Evaluation :: CBC reveals a white count of 10.2 with normal differential. Chemistry studies unremarkable. Urinalysis reveals no evidence of acute infection. Swab for COVID, influenza, and RSV is negative. On repeat evaluation patient does report improvement in her symptoms and her headache. Test results are discussed with her. I do feel that she has some viral syndrome and I do not feel antibiotics will be beneficial. I will write her a prescription for Toradol, Compazine, and Benadryl that she can use at home. She was advised not to take ibuprofen or Aleve with this. Return instructions provided. Discharge Plan Triage Chief Complaint: General Illness ED Provider: Shawanda Ace Dx/Rx/DC Orders Clinical Impression: Viral syndrome Instructions: ED Viral Syndrome (Adult) Prescriptions: New ketorolac 10 mg tablet 10 mg PO Q8H PRN (Reason: pain) 3 Days Qty: 10 0RF prochlorperazine maleate [Compazine] 10 mg tablet 10 mg PO Q8H PRN (Reason: nausea and vomiting) Qty: 10 0RF diphenhydramine HCl [Benadryl] 25 mg capsule 25 mg PO TID PRN (Reason: headache) Qty: 10 0RF No Action cyanocobalamin (vitamin B-12) 1,000 mcg capsule 1,000 mcg PO DAILY ascorbic acid (vitamin C) 500 mg tablet 500 mg PO DAILY PRN citalopram 10 mg tablet 10 mg PO DAILY multivitamin Tablet 1 tab PO DAILY ibuprofen 600 mg tablet 600 mg PO TID-QID PRN (Reason: pain) Qty: 60 0RF acetaminophen 500 mg tablet 500 - 1,000 mg PO TID-QID PRN (Reason: fever or pain) Qty: 60 0RF atenolol 25 mg tablet 25 mg PO QDAY Qty: 30 0RF loratadine 10 mg tablet 10 mg PO QDAY PRN (Reason: allergy symptoms) Qty: 30 0RF cholecalciferol (vitamin D3) 25 mcg (1,000 unit) capsule 1,000 unit PO QDAY Qty: 30 0RF Primary Care Provider: Nora Robertson NP Referrals: Nora Robertson NP, [facility] [Primary Care Provider] - 1 Week if not improving Activity Restrictions/Additional Instructions: You can take the Toradol (ketorolac), Compazine (prochlorperazine), and Benadryl (diphenhydramine) together for headaches. Please do not take any ibuprofen or Aleve if you are taking the Toradol. Print Language: Vietnamese Disposition Disposition: Home, Self Care
[2024-03-31] MEDS: Ketorolac 15 MG/ML Vial IV (10:35)
[2024-03-31] MEDS: DiphenhydrAMINE 50 MG/ML Syringe 12.5 MG IV (10:35)
[2024-03-31] MEDS: proCHLORPERazine 10 MG/2 ML Vial 5 MG IV (10:36)
[2024-03-31 10:37] LABS: Red Blood Cells-Urine 0 SEEN /hpf (0-5); White Blood Cells 0 SEEN /hpf (0-5)
[2024-03-31 10:39] LABS: Color, Urine Straw (Yellow); Glucose, Dipstick Normal (Normal); Ketone-Dipstick Negative (Negative); Leukocyte Esterase-Dipstick Negative /ul (Negative); Nitrite-Dipstick Negative (Negative); Occult Blood-Urine Negative /ul (Negative); Protein-Dipstick Negative (Negative); Urine Bilirubin Dipstick Negative (Negative); Urine Clarity Clear (Clear); Urine Urobilinogen Normal (Normal)
[2024-03-31] MEDS: 0.9% Normal Saline (1000mL) 1,000 ML 1000 ML IV (10:39)
[2024-03-31 10:46] LABS: Absolute Lymphocyte Count 3.54 X10^3/uL (0.83-4.51); Absolute Neutrophil Count 5.4 X10^3/uL (2.0-7.7); Bacteria 1+ /hpf (None Seen); Eosinophil# 0.33 X10^3/uL; Eosinophils% 3.2 % (0-5); Hematocrit 38.4 % (37-47); Lymphocyte # 3.54 X10^3/ul (0.83-4.51); Lymphocyte % 34.8 % (19-41); Mean Corp Hgb Conc 31.3 g/dL (32-36); Mean Corpuscular Hgb 27.1 pg (27.0-32.0); Mean Corpuscular Volume 86.9 fL (81-99); Mean Platelet Vol. 9.4 fl (6.2-12.0); Monocyte% 6.9 % (0-10); Mucous, Urine 1+ /hpf (<or=2+); NRBC Flagged by Analyzer 0 % (0-5); Neutrophil # 5.38 X10^3/uL (2.7-7.7); Platelet Count 393 K/mm3 (150-450); RBC Distribution Width SD 41.1 fl (35.1-43.9); Red Blood Count 4.42 M/mm3 (4.2-5.4); Squamous Epithelial Cells - UA 0-5 SEEN /hpf (5-10); White Blood Count 10.2 K/mm3 (4.4-11.0)
[2024-03-31 11:16] LABS: Anion Gap 5 (5-15); BUN 15 mg/dL (7-18); BUN/Creat Ratio 18.6 RATIO (10-20); Calcium,Total 9.3 mg/dL (8.5-10.1); Chloride 107 mmol/L (98-107); Creatinine, Serum 0.81 mg/dL (0.55-1.02); EST Glomerular Filtration Rate 77 mL/min (>60); Est Glom Filt Rate - Afr Amer 94 mL/min (>60); Glucose 129 mg/dL (74-106); Potassium 3.9 mmol/L (3.5-5.1); Sodium Level 137 mmol/L (136-145)
[2024-03-31 12:43] VITALS: BP 142/78; PULSE 90; RESP 16; O2SAT 99; BMI 28.9
== END 2024-03-31 12:44 | disposition home or self-care (01) ==
PROVIDERS: Emergency Provider Emergency Medicine; PCP Nurse Practitioner Family; Visit Provider Emergency Medicine
DX: B34.9 Viral infection, unspecified (principal); F17.210 Nicotine dependence, cigarettes, uncomplicated
CPT/HCPCS: 80048; 81001; 85025; 87631; 96361; 96374; 96375; 96376; 99283; J7030; A4216

== ENCOUNTER 2024-06-17 08:23 | Emergency (ER) | payer SELFPAY ==
[2024-06-17 08:23] VITALS: BP 130/60; PULSE 71; RESP 16; TEMP 36.2; O2SAT 100
[2024-06-17 08:24] VITALS: BMI 28.5
--- NOTE | 2024-06-17 08:36 | EX.ED.GENINJ ---
HPI History of Present Illness Chief Complaint: Fall Informant: patient Narrative Narrative: Patient 58-year-old female with history of osteoarthritis of her left knee presenting with increased left knee pain. Patient was walking down 4 steps yesterday and on the last step missed a step and came down hard on her knee. She stepped on it hard but did not actually fall or land directly on her knee. She denies any other injuries. Her put topical medication on it last night and wrapped it with a heating pad. She is continue to have pain today and came in for further evaluation. She states her pain is much more swollen than normal. She denies history of surgery on the knee but does follow with Dr. Ibarra and is on physical therapy for her knee. She also has had intentional weight loss to help with her knee pain. States overall her knee had been doing better until this injury yesterday. Did not take any medication for pain prior to arrival. Denies any other complaints or concerns at this time. Notes the pain is on the outside of the knee and radiates down her centeno. [facility] Medical History Anxiety and depression Osteoarthritis of left knee Cataract Arthritis GERD (gastroesophageal reflux disease) Vitamin D deficiency Overweight Anxiety Depression Hyperlipemia Anemia Hypertension Abnormal EKG Chest pain Home Medications ?Medication ?Instructions ?Recorded ?Last Taken ?Type cyanocobalamin (vitamin B-12) 1,000 mcg PO DAILY 12/19/18 Unknown History 1,000 mcg capsule ascorbic acid (vitamin C) 500 mg 500 mg PO DAILY PRN 12/29/19 Unknown History tablet citalopram 10 mg tablet 10 mg PO DAILY 02/22/22 Unknown History multivitamin 1 tab PO DAILY 02/22/22 Unknown History acetaminophen 500 mg tablet 500 - 1,000 mg (1 - 2 x 500 mg) PO 07/11/22 Unknown Rx TID-QID PRN fever or pain #60 tabs atenolol 25 mg tablet 25 mg PO QDAY #30 tabs 01/08/24 Unknown Rx cholecalciferol (vitamin D3) 25 1,000 unit PO QDAY #30 caps 01/08/24 Unknown Rx mcg (1,000 unit) capsule loratadine 10 mg tablet 10 mg PO QDAY PRN allergy symptoms 01/08/24 Unknown Rx #30 tabs diphenhydramine HCl 25 mg capsule 25 mg PO TID PRN headache #10 caps 03/31/24 Unknown Rx (Benadryl) ketorolac 10 mg tablet 10 mg PO Q8H PRN pain 3 days #10 03/31/24 Unknown Rx tabs prochlorperazine maleate 10 mg 10 mg PO Q8H PRN nausea and 03/31/24 Unknown Rx tablet (Compazine) vomiting #10 tabs ibuprofen 600 mg tablet 600 mg PO TID-QID PRN pain #30 tabs 06/17/24 Unknown Rx Allergy/AdvReac Type Severity Reaction Status Date / Time atorvastatin (From Lipitor) Allergy Severe Bad skin Verified 06/17/24 08:25 reaction Sulfa (Sulfonamide Allergy Unknown Verified 06/17/24 08:25 Antibiotics) Family History Brother , age 55 or 56 Myocardial infarction Sudden cardiac Brother , 55 or 56 , from liver failure CAD (coronary artery disease) S/P CABG (coronary artery bypass graft) Liver failure Mother Cancer throat Surgical History History of wisdom tooth extraction, class IV edentulism History of Social History household members: family number of children: 3 current occupational status: unemployed pets and animals: No other: Patient has 1 child and 2 stepchildren Smoking Status: Current every day smoker tobacco type: cigarettes alcohol intake: never substance use type: does not use caffeine: Yes what type of physical activity do you participate in: none seatbelt use: always do you feel safe at home: Yes additional social history: - Shun BUSTOS ROS ED Constitutional Constitutional ED: Denies chills or fever(s) Musculoskeletal Musculoskeletal: Reports other Details: left knee pain and swelling Integumentary Denies Abrasions or rash Neurologic Neurologic: Denies paresthesias or weakness Hematologic/Lymphatic Hematologic/Lymphatic: Denies easy bleeding or easy bruising EXAM Physical Exam Const Vital Signs: 06/17/24 08:23 06/17/24 08:32 Temperature 97.1 F L Temperature Source Temporal Pulse Rate 71 Respiratory Rate 16 Respiratory Effort Normal Non-Labored Respiratory Depth Normal Respiratory Pattern Normal Blood Pressure 130/60 H Blood Pressure Mean 83 Pulse Ox 100 Oxygen Delivery Method Room Air Room Air Positive well nourished and well developed General Appearance ED: well developed and NAD HEENT atraumatic Resp normal respiratory effort Cardio regular rhythm Cardio Narrative: 2+ DP pulses Rate: regular rate Extremity full ROM Extremity Narrative: Left lower extremity?no deformity of the leg. Effusion noted of the left knee most pronounced over the anterior, medial inferior aspect. No deformity of the patella appreciated. Patient has increased pain along the lateral aspect of the knee with palpation. Normal extensor mechanism of the knee. No short arc range of motion pain. No overlying redness or warmth appreciated. Normal Rodriguez test on the left side. Calf compartments are soft. No pedal edema appreciated. Neuro oriented x3, moves all extremities and no focal motor deficits Psych mental status grossly normal and thought process normal Skin no rashes or lesions noted and no wounds MDM MDM MDM Narrative Medical decision making narrative: Patient valuated increased left knee pain and swelling. Patient's missed a step and stepped hard down on her right lower extremity yesterday. She is increased pain since. She did not actually fall. On exam she does have a small effusion but no obvious signs of an tendinous injury. No overlying warmth. No signs of concern for acute infection. X-ray ordered to look for signs of tibial plateau fracture patellar fracture. X-ray viewed by myself as well as urology shows significant arthritis but no acute fracture. Patient initially declined any medication for pain. Patient voices concern because she is having too much pain with weightbearing. Did offer CT of the knee to rule out more subtle fracture and also discussed differential including meniscal injury need for outpatient orthopedic follow-up. Patient declined CT at this time. Will be given crutches and Shun wrap to the knee. Will be treated conservatively at this time with RICE therapy. Patient's notified nursing staff that she would now like a CT of the knee. This will be ordered. CT of the knee shows tricompartment degenerative arthrosis again, 7 mm ossified loose body in the intercondylar notch and a small joint effusion. This is discussed with the patient's orthopedist, Dr. Gill. He does not feel that any of this is acute/traumatic. Will be treated symptomatically with RICE therapy as well as weightbearing as tolerated. Patient encouraged to follow-up outpatient with Ortho. Radiography Diagnostic Testing: Clinical Impression(s) from Imaging Studies Knee X-Ray 06/17/24 08:45 IMPRESSION: Persistent tricompartment degenerative arthrosis, most severe in the medial femorotibial compartment. No demonstrated fracture. Electronically Signed: Fransisco Ambrocio MD at 9:08 EDT , Lower Extremity CT 06/17/24 09:51 IMPRESSION: Tricompartment degenerative arthrosis, most pronounced in the medial femorotibial compartment. 7 mm ossified loose body in the intercondylar notch. Small joint effusion. Electronically Signed: Fransisco Ambrocio MD at 10:21 EDT , Discharge Plan Triage Chief Complaint: Fall ED Provider: Viry Barnard Dx/Rx/DC Orders Clinical Impression: Effusion of left knee joint, Left knee sprain Instructions: ED Knee Effusion, ED Knee Sprain Prescriptions: Continued ibuprofen 600 mg tablet 600 mg PO TID-QID PRN (Reason: pain) Qty: 30 0RF No Action cyanocobalamin (vitamin B-12) 1,000 mcg capsule 1,000 mcg PO DAILY ascorbic acid (vitamin C) 500 mg tablet 500 mg PO DAILY PRN citalopram 10 mg tablet 10 mg PO DAILY multivitamin Tablet 1 tab PO DAILY acetaminophen 500 mg tablet 500 - 1,000 mg PO TID-QID PRN (Reason: fever or pain) Qty: 60 0RF atenolol 25 mg tablet 25 mg PO QDAY Qty: 30 0RF loratadine 10 mg tablet 10 mg PO QDAY PRN (Reason: allergy symptoms) Qty: 30 0RF cholecalciferol (vitamin D3) 25 mcg (1,000 unit) capsule 1,000 unit PO QDAY Qty: 30 0RF ketorolac 10 mg tablet 10 mg PO Q8H PRN (Reason: pain) 3 Days Qty: 10 0RF prochlorperazine maleate [Compazine] 10 mg tablet 10 mg PO Q8H PRN (Reason: nausea and vomiting) Qty: 10 0RF diphenhydramine HCl [Benadryl] 25 mg capsule 25 mg PO TID PRN (Reason: headache) Qty: 10 0RF Primary Care Provider: Nora Robertson NP Referrals: Matt Gill DO [Med Staff - Active Staff] - Nora Robertson NP, [facility] [facility] [Primary Care Provider] - Activity Restrictions/Additional Instructions: There is no acute fracture or broken bone on your x-ray or CT. you have significant arthritis. Please follow-up with orthopedics. In the meantime weight-bear as tolerated, use crutches as needed. Use Shun wrap as needed. Ice and elevate the leg is much as possible. Print Language: Greenlandic Disposition Disposition: Home, Self Care
--- NOTE | 2024-06-17 08:45 | RAD_ITS ---
STUDY: X-RAY - LEFT KNEE REASON FOR EXAM: Female, 58 years old. Injury/pain. TECHNIQUE: 4 views of the left knee. COMPARISON: Left knee radiographs dated 08/28/2022. FINDINGS: Normal visualized distal femur. Normal visualized proximal tibia and fibula. Normal proximal tibiofibular articulation. There is no demonstrated fracture. There is persistent moderate to severe degenerative arthrosis of the medial femorotibial compartment with moderate to severe joint space narrowing and marginal osteophyte formation. There is persistent mild degenerative arthrosis of the lateral femorotibial compartment. There is persistent mild degenerative arthrosis of the patellofemoral articulation. The soft tissue structures are unremarkable. RAD/Knee 4 or More Views IMPRESSION: Persistent tricompartment degenerative arthrosis, most severe in the medial femorotibial compartment. No demonstrated fracture. Electronically Signed: Fransisco Ambrocio MD at 9:08 EDT ,
--- NOTE | 2024-06-17 09:51 | CT_ITS ---
STUDY: CT LEFT KNEE WITHOUT CONTRAST REASON FOR EXAM: Female, 58 years old. Knee trauma. RADIATION DOSAGE (If Supplied By Facility): CTDIvol = ( 15.35 ) mGy, DLP = ( 434.36 ) mGycm TECHNIQUE: Transaxial CT imaging of the left knee was performed. Coronal and sagittal images were reformatted. Individualized dose optimization techniques were used for this CT. COMPARISON: Left knee radiographs dated 06/17/2024. FINDINGS: There is moderate degenerative arthrosis of the medial femorotibial compartment with joint space narrowing, marginal osteophyte formation, and subchondral sclerosis. There is mild degenerative arthrosis of the lateral femorotibial compartment with mild marginal osteophyte formation. There is mild degenerative arthrosis of the patellofemoral compartment with mild marginal osteophyte formation. Normal proximal tibiofibular articulation. There is a small joint effusion. There is a 7 mm ossified loose body in the intercondylar notch (coronal reformat series 602 images 25-27). The quadriceps tendon is grossly normal. The patellar tendon is grossly normal. Normal Hoffa''s fat pad. The soft tissues are unremarkable. CT/Extremity Lower without Contra IMPRESSION: Tricompartment degenerative arthrosis, most pronounced in the medial femorotibial compartment. 7 mm ossified loose body in the intercondylar notch. Small joint effusion. Electronically Signed: Fransisco Ambrocio MD at 10:21 EDT ,
[2024-06-17] MEDS: Ibuprofen 600 MG Tablet PO (09:52)
== END 2024-06-17 12:32 | disposition home or self-care (01) ==
PROVIDERS: Emergency Provider Emergency Medicine; PCP Nurse Practitioner Family; Visit Provider Emergency Medicine
DX: M25.462 Effusion, left knee (principal); S83.92XA Sprain of unspecified site of left knee, initial encounter; F17.210 Nicotine dependence, cigarettes, uncomplicated; X58.XXXA Exposure to other specified factors, initial encounter
CPT/HCPCS: 73564; 73700; 99283

== ENCOUNTER 2024-09-05 14:07 | Inpatient (IN) | payer SELFPAY ==
[2024-09-05] VITALS (9 sets, daily range): BP systolic 121–168; BP diastolic 79–102; PULSE 59–84; RESP 15–18; TEMP 36.5–37; O2SAT 97–100; BMI 27.5; BMI 28.8
--- NOTE | 2024-09-05 14:14 | CT_ITS ---
STUDY: CT BRAIN WITHOUT CONTRAST REASON FOR EXAM: Female, 59 years old. Fall, AMS RADIATION DOSAGE (If Supplied By Facility): CTDIvol = ( 47.06 ) mGy, DLP = ( 837.39 ) mGycm TECHNIQUE: Transaxial CT imaging of the brain was performed without administration of intravenous contrast material. Individualized dose optimization techniques were used for this CT. COMPARISON: Comparison is made with prior study dated September 24, 2017. FINDINGS: Normal soft tissue structures. Normal calvarium. Normal size ventricles and extra-axial spaces for the patient''s age. Normal white matter tracts of the cerebral hemispheres. Normal basal ganglia and thalami. Normal brainstem. Normal cerebellum. There is no intracranial hemorrhage. There are no findings of an acute ischemic infarction. Normal visualized paranasal sinuses. CT/Brain/Head without Contrast IMPRESSION: Normal unenhanced CT scan of the brain. Electronically Signed: Bradley Ferrara MD at 14:55 EST ,
--- NOTE | 2024-09-05 14:15 | EKG12_ITS ---
Test Reason : SYNCOPE Blood Pressure : */* mmHG Vent. Rate : 71 BPM Atrial Rate : 71 BPM P-R Int : 166 ms QRS Dur : 88 ms QT Int : 392 ms P-R-T Axes : 62 -4 25 degrees QTcB Int : 425 ms Normal sinus rhythm Normal ECG Confirmed by Baltazar Hoang ([id number]), field map editor DANG MCCAIN ([id number]) on 09/08/2024 6:24:31 AM Referred By: TAMY Confirmed By: Baltazar Hoang
--- NOTE | 2024-09-05 14:18 | EX.ED.DYSGE1 ---
HPI History of Present Illness Chief Complaint: Unresponsive Informant: patient and EMS Narrative Narrative: Patient is a 59-year-old female with history of hypertension, osteoarthritis of her knees, anemia, anxiety and depression presenting via EMS after a fall. Per EMS report patient was found on the ground in front of a store. They states she is very out of it. Is unclear if she lost consciousness or what led to the fall. She is complaining of knee pain and EMS felt that she had some left hip pain. Is not clear if she hit her head. Patient states she is not any blood thinners. Patient's blood sugar was 99 per EMS. They state her initial blood pressure was 200/100 and her pupils were sluggish. They brought her in for further evaluation. Patient is answering questions slowly but just states to call my . No other complaints or concerns reported at this time. [facility] Medical History Anxiety and depression Osteoarthritis of left knee Cataract Arthritis GERD (gastroesophageal reflux disease) Vitamin D deficiency Overweight Anxiety Depression Hyperlipemia Anemia Hypertension Abnormal EKG Chest pain Home Medications ?Medication ?Instructions ?Recorded ?Last Taken ?Type ascorbic acid (vitamin C) 500 mg 500 mg PO DAILY 12/29/19 09/04/24 History tablet acetaminophen 500 mg tablet 500 - 1,000 mg (1 - 2 x 500 mg) PO 07/11/22 Unknown Rx TID-QID PRN fever or pain #60 tabs atenolol 25 mg tablet 25 mg PO QDAY #30 tabs 01/08/24 09/04/24 Rx cholecalciferol (vitamin D3) 25 1,000 unit PO QDAY #30 caps 01/08/24 09/04/24 Rx mcg (1,000 unit) capsule loratadine 10 mg tablet 10 mg PO QDAY PRN allergy symptoms 01/08/24 09/04/24 Rx #30 tabs ibuprofen 600 mg tablet 600 mg PO TID-QID PRN pain #30 tabs 06/17/24 09/05/24 Rx fluoxetine 20 mg capsule 20 mg PO DAILY 09/05/24 09/04/24 History Allergy/AdvReac Type Severity Reaction Status Date / Time atorvastatin (From Lipitor) Allergy Severe Bad skin Verified 09/05/24 14:12 reaction Sulfa (Sulfonamide Allergy Unknown Verified 09/05/24 14:12 Antibiotics) Family History Brother , age 55 or 56 Myocardial infarction Sudden cardiac Brother , 55 or 56 , from liver failure CAD (coronary artery disease) S/P CABG (coronary artery bypass graft) Liver failure Mother Cancer throat Surgical History History of wisdom tooth extraction, class IV edentulism History of Social History household members: family number of children: 3 current occupational status: unemployed pets and animals: No other: Patient has 1 child and 2 stepchildren Smoking Status: Never smoker alcohol intake: never substance use type: does not use caffeine: Yes what type of physical activity do you participate in: none seatbelt use: always do you feel safe at home: Yes additional social history: - Ragvinder ROS ROS ED Review of Systems ROS Unobtainable: due to mental status Constitutional Constitutional ED: Denies chills or fever(s) Musculoskeletal Musculoskeletal: Reports other Details: Bilateral knee pain Neurologic Neurologic: Denies paresthesias or weakness Psychiatric Psychiatric: Reports anxiety Endocrine Endocrinology: Denies other Hematologic/Lymphatic Hematologic/Lymphatic: Denies easy bleeding or easy bruising EXAM Physical Exam Const Vital Signs: 09/05/24 14:08 09/05/24 14:33 09/05/24 15:07 Temperature 97.7 F L Temperature Source Oral Pulse Rate 74 59 L Respiratory Rate 16 18 Respiratory Pattern Tachypnea Blood Pressure 123/102 H 166/82 H Blood Pressure Mean 109 110 Pulse Ox 99 99 Oxygen Delivery Method Room Air Room Air 09/05/24 16:00 09/05/24 17:00 09/05/24 18:00 Temperature Temperature Source Pulse Rate 70 64 74 Respiratory Rate 17 16 16 Respiratory Pattern Blood Pressure 140/79 H 121/81 H 163/80 H Blood Pressure Mean 99 94 107 Pulse Ox 98 99 99 Oxygen Delivery Method Room Air Room Air Room Air Positive well nourished and well developed General Appearance ED: well developed and NAD HEENT Reports TM's clear and moist mucous membranes Negative for trauma Tympanic Membrane ED: Yes TM's clear Eyes PERRL and EOMs intact bilaterally Neck supple and no JVD Chest Wall inspection of chest normal and palpation of chest normal Resp clear to auscultation bilaterally Resp Narrative: Mildly tachypneic Auscultation: Negative for rhonchi or wheezes Cardio regular rate, regular rhythm and no murmurs GI normal to inspection, nondistended, normoactive bowel sounds and non-tender Extremity Extremity Narrative: Tenderness palpation of the left knee and to a lesser extent the right knee. No obvious deformity of extremities. Pelvis is stable. Mild tenderness to palpation of the left hip. No tense palpation of the upper extremities. Neuro oriented x3 and no sensory deficits noted Neuro Narrative: GCS equals 14 for mildly confused verbal response Sensorium / Orientation: alert Motor Exam: strength 5/5 throughout and general weakness Psych Mood & Affect: anxious and tearful Skin Skin Narrative: Superficial abrasion noted to the right anterior knee MDM MDM MDM Narrative Medical decision making narrative: Patient evaluated after fall. Is not clear why or how she fell. Patient is not sure. She states she landed hard on both of her knees. Patient is not acting entirely appropriate upon arrival and I am not sure if there is some associated anxiety response versus a more severe underlying traumatic or cardiogenic process. Patient is now asking for water. Differential includes syncope, mechanical fall, patellar fracture, tibial plateau fracture, left hip fracture, intracranial hemorrhage, skull fracture, FRAN, ACS, electrolyte abnormality, pneumonia, pleural effusion, UTI Vital signs are normal. Will obtain CT of the brain, chest x-ray, EKG, labs as well as x-ray of the left hip and bilateral knees. I did speak to the patient's to let him know that she is in the ER. She has mild leukocytosis 11.2 which is nonspecific. Initial high-sensitivity troponin is normal. Imaging does not show any acute process. X-ray of the chest as well as the hip reviewed by myself as well as radiology does not show any acute process. Patient had declined x-ray of the knees when she went to radiology send is now performed. Patient is able to ambulate however slow suspicion for acute patellar tibial plateau fracture. Patient does notice that she is sore over her right shoulder and left thenar eminence. She does not have any bony tenderness I do not think she requires imaging. She does have bruising developing over her left thenar eminence. At repeat troponin obtained and is now elevated at 94. This is concerning for NSTEMI or some type of cardiac process that caused her fall and altered mental status upon presentation. Did page cardiology but was unable to get a hold of them. EKG does not show any acute ischemic changes however given his uptrending troponin with an episode of change in responsiveness I do think patient benefit from admission. Patient and her daughter are agreeable this plan of care. Patient is started on heparin drip after discussion with hospitalist. Patient will be admitted for further cardiac evaluation with concern of cardiogenic syncope. Lab Data Attestation: I reviewed the patient's lab results. Labs: Laboratory Results - last 24 hr 09/05/24 09/05/24 09/05/24 14:11 15:03 15:09 WBC 11.2 H RBC 4.41 Hgb 12.1 Hct 37.2 MCV 84.4 MCH 27.4 MCHC 32.5 RDW Std Deviation 40.6 RDW Coeff of Jazmin 13.2 Plt Count 393 MPV 9.3 Immature Gran % (Auto) 0.800 Neut % (Auto) 40.4 L Lymph % (Auto) 46.7 H [place] % (Auto) 8.2 Eos % (Auto) 3.0 Baso % (Auto) 0.9 Absolute Neuts (auto) 4.5 Absolute Lymphs (auto) 5.23 H Nucleated RBC % 0 Differential Comment COMMENT PT 12.9 INR 1.0 APTT 25.8 Sodium 136 Potassium 3.7 Chloride 106 Carbon Dioxide 22.0 Anion Gap 7 BUN 14 Creatinine 0.78 Estim Creat Clear Calc 64.80 Est GFR (MDRD) Af Amer 98 Est GFR (MDRD) Non-Af 81 BUN/Creatinine Ratio 18.1 Glucose 99 Lactic Acid 1.4 Calcium 9.5 Total Bilirubin 0.20 AST 22 ALT 25 Alkaline Phosphatase 85 Troponin I High Sens 9 Total Protein 7.9 Albumin 3.7 Globulin 4.2 Albumin/Globulin Ratio 0.9 Urine Color Yellow Urine Clarity Clear Urine pH 6.0 Ur Specific Fords 1.010 Urine Protein Negative Urine Glucose (UA) Normal Urine Ketones Negative Urine Occult Blood Negative Urine Nitrite Negative Urine Bilirubin Negative Urine Urobilinogen Normal Ur Leukocyte Esterase Negative Urine RBC 0 SEEN Urine WBC 0 SEEN Ur Squamous Epith Cells 0-5 SEEN Urine Bacteria 0 SEEN Urine Mucus RARE Urine Opiates Screen NEGATIVE Urine Methadone Screen NEGATIVE Ur Barbiturates Screen NEGATIVE Ur Phencyclidine Scrn NEGATIVE Ur Amphetamines Screen NEGATIVE MDMA (Ecstasy) Screen NEGATIVE U Benzodiazepines Scrn NEGATIVE Urine Cocaine Screen NEGATIVE U Cannabinoids Screen NEGATIVE Ur Drug Screen Comment 09/05/24 16:32 WBC RBC Hgb Hct MCV MCH MCHC RDW Std Deviation RDW Coeff of Jazmin Plt Count MPV Immature Gran % (Auto) Neut % (Auto) Lymph % (Auto) [place] % (Auto) Eos % (Auto) Baso % (Auto) Absolute Neuts (auto) Absolute Lymphs (auto) Nucleated RBC % Differential Comment PT INR APTT Sodium Potassium Chloride Carbon Dioxide Anion Gap BUN Creatinine Estim Creat Clear Calc Est GFR (MDRD) Af Amer Est GFR (MDRD) Non-Af BUN/Creatinine Ratio Glucose Lactic Acid Calcium Total Bilirubin AST ALT Alkaline Phosphatase Troponin I High Sens 94 H Total Protein Albumin Globulin Albumin/Globulin Ratio Urine Color Urine Clarity Urine pH Ur Specific Fords Urine Protein Urine Glucose (UA) Urine Ketones Urine Occult Blood Urine Nitrite Urine Bilirubin Urine Urobilinogen Ur Leukocyte Esterase Urine RBC Urine WBC Ur Squamous Epith Cells Urine Bacteria Urine Mucus Urine Opiates Screen Urine Methadone Screen Ur Barbiturates Screen Ur Phencyclidine Scrn Ur Amphetamines Screen MDMA (Ecstasy) Screen U Benzodiazepines Scrn Urine Cocaine Screen U Cannabinoids Screen Ur Drug Screen Comment Radiography Diagnostic Testing: Clinical Impression(s) from Imaging Studies Brain CT 09/05/24 14:14 IMPRESSION: Normal unenhanced CT scan of the brain. Electronically Signed: Braldey Ferrara MD at 14:55 EST , Chest X-Ray 09/05/24 14:45 IMPRESSION: Normal x-ray examination of the chest. Electronically Signed: Bradley Ferrara MD at 15:08 EST , Hip/Pelvis X-Ray 09/05/24 14:45 IMPRESSION: Moderate degree of osteoarthritis of both hip joints. Electronically Signed: Bradley Ferrara MD at 15:07 EST , Rhythm Strip Rhythm Strip: Sinus Rhythm Rate: 71 Ectopy: None EKG Initial EKG: Attestation: I personally reviewed and interpreted this EKG as follows: Interpretation: Sinus Rhythm Comments: Normal sinus rhythm at a rate of 71 bpm Normal axis Normal intervals Normal ST segments Management Discussion w/another healthcare provider: Hospitalist Discharge Plan Dx/Rx/DC Orders Clinical Impression: Elevated troponin I level, Altered mental status, Hypertension Disposition Disposition: Acute Care Hospital [facility] Discharge Date/Time: 09/05/24 19:19
[2024-09-05 14:29] LABS: Absolute Lymphocyte Count 5.23 X10^3/uL (0.83-4.51); Absolute Neutrophil Count 4.5 X10^3/uL (2.0-7.7); Basophil% 0.9 % (0-1); Eosinophil# 0.34 X10^3/uL; Hematocrit 37.2 % (37-47); Hemoglobin 12.1 g/dL (12.0-15.0); Lymphocyte # 5.23 X10^3/ul (0.83-4.51); Lymphocyte % 46.7 % (19-41); Mean Corp Hgb Conc 32.5 g/dL (32-36); Mean Corpuscular Hgb 27.4 pg (27.0-32.0); Mean Corpuscular Volume 84.4 fL (81-99); Mean Platelet Vol. 9.3 fl (6.2-12.0); Monocyte# 0.92 X10^3/uL; Monocyte% 8.2 % (0-10); NRBC Flagged by Analyzer 0 % (0-5); Neutrophil # 4.53 X10^3/uL (2.7-7.7); Neutrophil % 40.4 % (47-70); POSITIVE DIFFERENTIAL YES; Platelet Count 393 K/mm3 (150-450); RBC Distribution Width CV 13.2 % (11.6-14.6); RBC Distribution Width SD 40.6 fl (35.1-43.9); Red Blood Count 4.41 M/mm3 (4.2-5.4); White Blood Count 11.2 K/mm3 (4.4-11.0)
[2024-09-05 14:30] LABS: Differential Indicated SCAN CRITERIA MET
--- NOTE | 2024-09-05 14:45 | RAD_ITS ---
STUDY: X-RAY - PELVIS AND LEFT HIP REASON FOR EXAM: Female, 59 years old. Injury/Pain TECHNIQUE: 3 views of the pelvis and hip. COMPARISON: None. FINDINGS: There is a non-specific bowel gas pattern. Normal visualized soft tissue structures. Normal bilateral iliac wings, sacroiliac joints and visualized sacrum. Normal bilateral superior and inferior pubic rami. There are degenerative changes of the pubic symphysis with articular narrowing and sclerosis. Normal bilateral ischial tuberosities. Normal visualized femoral head. There is osteoarthritic spur formation of the acetabular rim. There is moderate articular joint space narrowing of the hip. RAD/HIP, UNI W/ Pelvis 2-3 Views IMPRESSION: Moderate degree of osteoarthritis of both hip joints. Electronically Signed: Bradley Ferrara MD at 15:07 EST ,
--- NOTE | 2024-09-05 14:45 | RAD_ITS ---
STUDY: X-RAY CHEST REASON FOR EXAM: Female, 59 years old. Fall , weakness TECHNIQUE: Single AP portable view of the chest. COMPARISON: Comparison is made with prior study dated September 24, 2017. FINDINGS: EKG electrodes are seen. The lungs are clear and expanded. There is no demonstrated pleural abnormality. Normal size heart. Normal mediastinum and gabriela. Normal visualized pulmonary arteries. Normal visualized aortic arch and descending thoracic aorta. There are degenerative changes of the visualized thoracic spine. Normal visualized ribs, clavicles, and shoulders. There is no demonstrated abnormality of the visualized soft tissue structures of the upper abdomen. RAD/Chest 1 View (Portable) IMPRESSION: Normal x-ray examination of the chest. Electronically Signed: Bradley Ferrara MD at 15:08 EST ,
[2024-09-05 14:57] LABS: Lactic Acid 1.4 mmol/L (0.4-1.9)
[2024-09-05 14:59] LABS: ALB/GLOB Ratio 0.9 RATIO (0.9-2.4); AST(SGOT) 22 U/L (15-37); Alanine Aminotransfer ALT/SGPT 25 U/L (13-56); Albumin, Serum 3.7 g/dL (3.2-5.0); Alkaline Phosphatase 85 U/L (45-117); Anion Gap 7 (5-15); BUN 14 mg/dL (7-18); BUN/Creat Ratio 18.1 RATIO (10-20); Calcium,Total 9.5 mg/dL (8.5-10.1); Chloride 106 mmol/L (98-107); Creatinine, Serum 0.78 mg/dL (0.55-1.02); EST Glomerular Filtration Rate 81 mL/min (>60); Est Glom Filt Rate - Afr Amer 98 mL/min (>60); Globulin 4.2 g/dL (2.2-4.2); Glucose 99 mg/dL (74-106); Potassium 3.7 mmol/L (3.5-5.1); Protein, Total 7.9 g/dL (6.4-8.2); Sodium Level 136 mmol/L (136-145); Troponin-I HS (w/2H Reflex) 9 pg/mL (3.0-54.0)
[2024-09-05 15:07] LABS: Bacteria 0 SEEN /hpf (None Seen); Red Blood Cells-Urine 0 SEEN /hpf (0-5); White Blood Cells 0 SEEN /hpf (0-5)
[2024-09-05 15:12] LABS: Glucose, Dipstick Normal (Normal); Ketone-Dipstick Negative (Negative); Leukocyte Esterase-Dipstick Negative /ul (Negative); Nitrite-Dipstick Negative (Negative); Occult Blood-Urine Negative /ul (Negative); Protein-Dipstick Negative (Negative); Urine Bilirubin Dipstick Negative (Negative); Urine Urobilinogen Normal (Normal)
[2024-09-05 15:22] LABS: Color, Urine Yellow (Yellow); Urine Clarity Clear (Clear)
[2024-09-05 15:25] LABS: Mucous, Urine RARE /hpf (<or=2+); Squamous Epithelial Cells - UA 0-5 SEEN /hpf (5-10)
[2024-09-05 15:32] LABS: Partial Thromboplast Time 25.8 Seconds (24.1-36.2); Prothrombin Time (Protime)PT. 12.9 SECONDS (11.7-14.9)
[2024-09-05 16:26] LABS: Reflex Troponin-HS? (from REC) Y
[2024-09-05] MEDS: Ketorolac 15 MG/ML Vial IV (16:54)
[2024-09-05 17:11] LABS: Troponin-I HS 94 pg/mL (3.0-54.0)
[2024-09-05] MEDS: Aspirin 325 MG Tablet PO (17:41)
--- OUTSIDE RECORDS SUMMARY | 2024-09-05 18:16 | XMS RPT_ITS | CCD ---
Author Organization [facility] Care Team Providers Care Art Critic Name Role Phone Cassius Kilpatrick Chi Primary Care Provider [phone] Cailin Steele DO Primary Care Provider Cailin Steele DO Primary Care Provider Cailin Steele DO Primary Care Provider Queden AUTOMATIC LINE SET UP MECHANIC.Carolyn ARAYAtny A Primary Care Provider CAILIN STEELE Primary Care Unavailable CAILIN STEELE Primary Care Unavailable CAILIN STEELE Primary Care Unavailable QUEDEN, NORA A Primary Care Unavailable QUEDEN, NORA A Primary Care Unavailable SHERRILL, NORA A Referring Unavailable CAILIN STEELE Primary Care Unavailable DASH-AMY, ROSALIO Attending Unavailable CAILIN STEELE Primary Care Unavailable Cailin Steele DO Primary Care Provider QUEDEN, NORA A Attending Unavailable QUEDEN, NORA A Referring Unavailable QUEDEN, NORA A Primary Care Unavailable QUEDEN, NORA A Attending Unavailable QUEDEN, NORA A Referring Unavailable QUEDEN, NORA A Primary Care Unavailable Allergies Allergy Classification Reported Allergen(s) Allergy Type Date of Onset Reaction(s) Facility (20 sources) Sulfonamides (Antibiotic); Translations: [SULFA (SULFONAMIDE ANTIBIOTICS)] Propensity to adverse reactions 7 [facility] Medications Current Medications Medication Drug Class(es) Dates Sig (Normalized) Sig (Original) amoxicillin 875 mg / clavulanate 125 mg oral tablet (2 sources) Penicillin-class Antibacterial Start: 02-05-2024 End: 02-10-2024 take 1 tablet by mouth twice daily amoxicillin-clav ulanate potassium (AUGMENTIN) 875-125 mg per tablet Take 1 tablet by mouth two times a day for 5 days. 10 tablet 0 02/05/2024 02/10/2024 Active Start: 09-12-2023 End: 09-17-2023 take 1 tablet by mouth twice daily amoxicillin-clavulanate potassium (AUGMENTIN) 875-125 mg per tablet Take 1 tablet by mouth two times a day for 5 days. 10 tablet 0 09/12/2023 09/17/2023 Active Comment on above: Take 1 tablet by skye two times a day for 5 days. cholecalciferol 0.025 mg oral capsule (20 sources) Vitamin D Start: 7 End: 4 take 1 capsule by mouth once daily Cholecalciferol, Vitamin D3, 25 mcg (1,000 unit) cap Indications: Vitamin D deficiency Take 1 capsule by mouth once daily. 90 capsule 1 07/21/2024 Active Start: 08-01-2017 End: 08-27-2023 take 1 capsule by mouth two times weekly cholecalciferol, Vitamin D3, (VITAMIN D3) 50,000 unit cap capsule Indications: Vitamin D deficiency Take 1 capsule by mouth twice a week. (ONE CAPSULE) FOR VITAMIN D DEFICIENCY 32 capsule 1 08/01/2017 08/27/2023 Discontinued Comment on above: Take 1 capsule by mo [facility] twice a week. (ONE CAPSULE) FOR VITAMIN D DEFICIENCY Take 1 capsule by mo [facility] once daily. FLUoxetine 20 mg oral capsule (12 sources) Serotonin Reuptake Inhibitor Start: 4 End: 4 take 1 capsule by mouth once daily, then take 1 capsule by mouth once daily FLUoxetine (PROZAC) 20 mg capsule Indications: Mild episode of recurrent major depressive disorder (HCC) Take 1 capsule by mouth once daily. Take 1 capsule by mouth once daily 90 capsule 1 07/09/2024 Active loratadine 10 mg oral tablet (20 sources) Start: 8 End: 4 take 1 tablet by mouth once daily loratadine (ALLERGY RELIEF, LORATADINE,) 10 mg tablet Take 1 tablet by mouth once daily. 30 tablet 2 07/21/2024 Active Comment on above: Take 1 tablet by skye once daily. TAKE ONE TABLET BY [facility] ONCE DAILY predniSONE 20 mg oral tablet (1 source) Start: 3 End: 3 take 1 tablet by mouth once daily at mealtime predniSONE (DELTASONE) 20 mg tablet Indications: Rash Take 1 tablet by mouth once daily for 4 days. Take daily with food. 4 tablet 0 02/23/2023 02/27/2023 Active Comment on above: Take 1 tablet by skye th once daily for 4 days. Take daily with food. Completed/Discontinued Medications Medication Drug Class(es) Dates Sig (Normalized) Sig (Original) 8 hr acetaminophen 650 mg extended release oral tablet (4 sources) Start: 02-19-2018 End: 08-27-2023 take 1 tablet by mouth every eight hours as needed acetaminophen (TYLENOL ARTHRITIS PAIN) 650 mg CR tablet Take 1 tablet by mouth every 8 hours as needed. 30 tablet 2 11/14/2022 08/27/2023 Discontinued Comment on above: Take 1 tablet by skye th every 8 hours as needed. Ascorbic Acid (3 sources) Vitamin C End: 08-27-2023 ASCORBIC ACID (VITAMIN C ORAL) Take by mouth once daily. 0 08/27/2023 Discontinued ASCORBIC ACID (V ITAMIN C ORAL) Take by mouth once daily. 0 Active Comment on above: Take by mouth once d aily. atenolol 25 mg oral tablet (20 sources) beta-Adrenergic Mark Start: End: take 1 tablet by mouth once daily atenolol (TENORMIN) 25 mg tablet Indications: Essential hypertension Take 1 tablet by mouth once daily. 90 tablet 1 07/09/2024 07/21/2024 Discontinued Comment on above: Take 1 tablet by skye th once daily. benoxinate hydrochloride 4 mg/ml / fluorescein sodium 3 mg/ml ophthalmic solution (1 source) Diagnostic Dye Start: 024 End: fluorescein-benoxin ate 0.3-0.4 % 1 Drop (FLURESS) buPROPion hydrochloride 100 mg oral tablet (3 sources) Aminoketone Start: 018 End: take 1 tablet by mouth twice daily buPROPion (WELLBUTRIN) 100 mg tablet Indications: Moderate episode of recurrent major depressive disorder (HCC) Take 1 tablet by mouth twice daily. 60 tablet 2 02/19/2018 08/27/2023 Discontinued Comment on above: Take 1 tablet by skye th twice daily. escitalopram 20 mg oral tablet (3 sources) Serotonin Reuptake Inhibitor Start: End: take 1 tablet by mouth once daily escitalopram oxalate (LEXAPRO) 20 mg tablet Indications: generalized anxiety disorder Take 1 tablet by mouth once daily. 30 tablet 2 02/19/2018 08/27/2023 Discontinued Comment on above: Take 1 tablet by skye th once daily. etodolac 300 mg oral capsule (3 sources) Nonsteroidal Anti-inflammatory Drug Start: End: take 1 capsule by mouth every eight hours etodolac (LODINE) 300 mg capsule Take 1 capsule by mouth every 8 hours. 90 capsule 2 02/19/2018 08/27/2023 Discontinued Comment on above: Take 1 capsule by mo [facility] every 8 hours. ferrous sulfate 325 mg oral tablet (3 sources) Start: End: take 1 tablet by mouth once daily at breakfast ferrous sulfate (FERROUSUL) 325 mg (65 mg iron) tablet Take 1 tablet by mouth daily with breakfast. 30 tablet 11 01/10/2017 08/27/2023 Discontinued Comment on above: Take 1 tablet by skye daily with breakfast. fluticasone propionate 0.05 mg/actuat metered dose nasal spray (3 sources) Corticosteroid Start: End: take 2 spray(s) by mouth once daily fluticasone (FLONASE) 50 mcg/actuation nasal spray Use 2 Sprays in each nostril once daily. Rinse mouth after use. 1 Bottle 11 01/10/2017 08/27/2023 Discontinued Comment on above: Use 2 Sprays in each nostril once daily. Rinse mouth after use. ibuprofen 600 mg oral tablet (3 sources) Nonsteroidal Anti-inflammatory Drug Start: End: take 1 tablet by mouth every six hours as needed for pain ibuprofen (MOTRIN) 600 mg tablet Indications: Arthritis pain Take 1 tablet by mouth every 6 hours as needed for pain. 30 tablet 0 11/14/2022 08/27/2023 Discontinued Comment on above: Take 1 tablet by skye th every 6 hours as needed for pain. MULTIVITAMIN ORAL (3 sources) End: MULTIVITAMIN ORAL Take by mouth. 0 08/27/2023 Discontinued MULTIVITAMIN ORA L Take by mouth. 0 Active Comment on above: Take by mouth. naproxen 500 mg oral tablet (3 sources) Nonsteroidal Anti-inflammatory Drug Start: End: take 1 tablet by mouth twice daily as needed for pain naproxen (NAPROSYN) 500 mg tablet Indications: Arthritis pain Take 1 tablet by mouth twice daily as needed (for pain/inflammation). Take with food. 30 tablet 0 11/14/2022 08/27/2023 Discontinued Comment on above: Take 1 tablet by skye th twice daily as needed (for pain/inflammation). Take with food. omeprazole 20 mg delayed release oral capsule (3 sources) Proton Pump Inhibitor Start: End: take 1 capsule by mouth once daily at breakfast omeprazole (PRILOSEC) 20 mg capsule Take 1 capsule by mouth once daily. Before morning meal 90 capsule 3 08/17/2017 08/27/2023 Discontinued Comment on above: Take 1 capsule by mo [facility] once daily. Before morning meal phenylephrine hydrochloride 25 mg/ml ophthalmic solution (2 sources) alpha-1 Adrenergic Agonist Start: End: PHENYLephrine 2.5 % 1 Drop (AK-DILATE, DELILAH-SYNEPHRINE) proparacaine hydrochloride 5 mg/ml ophthalmic solution (1 source) Local Anesthetic Start: End: proparacaine 0.5 % 1 Drop (ALCAINE) triamcinolone acetonide 0.25 mg/ml topical cream (2 sources) Corticosteroid Start: End: triamcinolone (KENALOG) 0.025 % cream Indications: Rash Apply 1 application to affected area twice daily. 80 g 1 02/23/2023 08/27/2023 Discontinued Comment on above: Apply 1 application to affected area twice daily. trolamine salicylate 100 mg/ml topical cream (3 sources) Start: End: trolamine salicylate (ASPERCREME) 10 % cream Indications: Arthritis pain Apply to affected area as needed. 85 g 0 11/14/2022 08/27/2023 Discontinued Comment on above: Apply to affected ar ea as needed. tropicamide 10 mg/ml ophthalmic solution (2 sources) Anticholinergic Start: 024 End: tropicamide 1 % 1 Drop (MYDRIACYL) vitamin b12 0.05 mg oral tablet (3 sources) Vitamin B12 Start: 016 End: Cyanocobalamin (VITAMIN B-12) 50 mcg tab Take 500 mg by mouth once daily. 0 05/01/2016 08/27/2023 Discontinued Comment on above: Take 500 mg by mouth once daily. Problems Active Problems Problem Classification Problem Date Documented Date Episodic/Chronic Adjustment disorders (18 sources) Adjustment disorder with mixed anxiety and depressed mood; Translations: [Adjustment disorder with mixed anxiety and depressed mood] Onset: 12-29-2013 03-24-2014 Chronic Blindness and vision defects (2 sources) Blurring of visual image; Translations: [Other visual disturbances] 02-18-2024 Episodic Cataract (1 source) Artificial lens present; Translations: [Presence of intraocular lens] 02-18-2024 Chronic Essential hypertension (20 sources) Essential hypertension; Translations: [Essential (primary) hypertension] Onset: 07-04-2007 Chronic Headache; including migraine (18 sources) Tension-type headache; Translations: [Tension-type headache, unspecified, not intractable] Onset: 01-27-2016 01-27-2016 Chronic Immunizations and screening for infectious disease (2 sources) Encounter for immunization; Translations: [Patient encounter status] Onset: 07-21-2024 07-21-2024 Episodic Miscellaneous mental health disorders (18 sources) Psychological finding; Translations: [Psychological and behavioral factors associated with disorders or diseases classified elsewhere] Onset: 12-29-2013 12-29-2013 Chronic Mood disorders (20 sources) Recurrent major depressive episodes; Translations: [Major depressive disorder, recurrent, unspecified] Onset: 08-19-2007 08-01-2016 Chronic Nutritional deficiencies (5 sources) Vitamin D deficiency; Translations: [Vitamin D deficiency, unspecified] Onset: 02-21-2024 02-21-2024 Chronic Osteoarthritis (3 sources) Unspecified osteoarthritis, unspecified site; Translations: [Arthropathy, unspecified, site unspecified] Onset: 07-21-2024 Chronic Other eye disorders (1 source) Tear film insufficiency; Translations: [Dry eye syndrome of bilateral lacrimal glands] 02-18-2024 Episodic Other lower respiratory disease (2 sources) Cough; Translations: [Acute cough] 09-12-2023 Episodic Other non-traumatic joint disorders (1 source) Pain in left knee; Translations: [Pain in joint, lower leg] 07-21-2024 Episodic Other nutritional; endocrine; and metabolic disorders (1 source) History of iron deficiency; Translations: [Personal history of other endocrine, nutritional and metabolic disease] 02-21-2024 Episodic Other screening for suspected conditions (not mental disorders or infectious disease) (20 sources) Mammography abnormal; Translations: [Other abnormal and inconclusive findings on diagnostic imaging of breast] Onset: 07-06-2017 07-06-2017 Episodic Other skin disorders (1 source) Eruption; Translations: [Rash and other nonspecific skin eruption] Episodic Other upper respiratory infections (2 sources) Bacterial sinusitis; Translations: [Chronic sinusitis, unspecified] 09-12-2023 Chronic Other upper respiratory infections (1 source) Acute upper respiratory infection; Translations: [Acute upper respiratory infection, unspecified] 08-27-2023 Episodic Unclassified (18 sources) Abnormal cytology findings; Translations: [ASCUS on Pap smear] Onset: 08-23-2011 10-10-2021 Unclassified (1 source) Acute cough; Translations: [Acute cough] Onset: 09-12-2023 Viral infection (1 source) Viral disease; Translations: [Viral infection, unspecified] 03-29-2024 Episodic Past or Other Problems Problem Classification Problem Date Documented Da te Episodic/Chronic Anxiety disorders (13 sources) Anxiety state; Translations: [Generalized anxiety disorder] Onset: 07-04-2007 Resolved: 06-28-2016 06-28-2016 Chronic Biliary tract disease (18 sources) Gallstone; Translations: [Calculus of gallbladder without cholecystitis without obstruction] Onset: 07-13-2008 10-14-2008 Episodic Deficiency and other anemia (18 sources) Iron deficiency anemia; Translations: [Iron deficiency anemia, unspecified] Onset: 09-28-2011 09-28-2011 Episodic Deficiency and other anemia (13 sources) Anemia; Translations: [Anemia, unspecified] Onset: 08-31-2011 Resolved: 06-28-2016 06-28-2016 Episodic Gastritis and duodenitis (18 sources) Acute gastritis; Translations: [Acute gastritis without bleeding] Onset: 10-04-2010 10-04-2010 Episodic Gastrointestinal hemorrhage (13 sources) Hematochezia; Translations: [Melena] Onset: 08-31-2011 Resolved: 03-24-2014 03-24-2014 Episodic Headache; including migraine (13 sources) Headache; Translations: [Headache] Onset: 07-04-2007 Resolved: 06-28-2016 06-28-2016 Episodic Malaise and fatigue (4 sources) Fatigue; Translations: [Other fatigue] Onset: 02-21-2024 02-05-2024 Episodic Other disorders of stomach and duodenum (13 sources) Disorder of function of stomach; Translations: [Other diseases of stomach and duodenum] Onset: 10-04-2010 Resolved: 11-16-2015 11-16-2015 Episodic Other nutritional; endocrine; and metabolic disorders (2 sources) Personal history of other endocrine, nutritional and metabolic disease; Translations: [History of iron deficiency] Onset: 02-21-2024 Episodic Residual codes; unclassified (18 sources) Insomnia; Translations: [Insomnia, unspecified] Onset: 07-04-2007 05-01-2016 Episodic Spondylosis; intervertebral disc disorders; other back problems (20 sources) Neck pain; Translations: [Cervicalgia] Onset: 01-23-2013 Resolved: 06-28-2016 11-06-2013 Episodic Results Test Name Value Interpretation Reference Range Facility [facility] 07-21-2024 OV Office Visit (AGFAMPLE) SUHAS ARCOS ([id number]) 1965 F Date Time Provider Department 07/21/24 9:20 AM NORA MCCARTNEY During your visit today, we recorded the following information about you: Temperature Pulse Blood pressure Weight 98.4 degrees 72/minute 122/60 62.1 kg Height 1.524 m Nora Mccartney APRN.NEUROPATHOLOGIST 07/21/2024 10:35 AM Signed CHIEF COMPLAINT: Suhas Arcos is a 59 year old female who presents for follow up for depression and medication refills. I reviewed past medical, surgical, social, and family histories today and updated chart. Allergies, chronic medications, and supplements were also reviewed. Doing well on current dose of Prozac. She would like to continue this. She is due for colon cancer screening. She still needs to complete her mammogram. Fell in June at home after she missed a step and fell on her left leg/knee. XR showed severe arthrosis of the medial femorotibial compartment. CT knee showed a 7 mm ossified loose body in the intercondylar notch Takes Motrin and Tylenol prn, takes four Motrin in the morning and 2 Motrin in the evening. Wears a brace Ices and uses heat prn Her daughter has to help her bathe and get up from the toilet due to pain and weakness in her knee STUDY: X-RAY - LEFT KNEE REASON FOR EXAM: Female, 58 years old. Injury/pain. TECHNIQUE: 4 views of the left knee. COMPARISON: Left knee radiographs dated 08/28/2022. FINDINGS: Normal visualized distal femur. Normal visualized proximal tibia and fibula. Normal proximal tibiofibular articulation. There is no demonstrated fracture. There is persistent moderate to severe degenerative arthrosis of the medial femorotibial compartment with moderate to severe joint space narrowing and marginal osteophyte formation. There is persistent mild degenerative arthrosis of the lateral femorotibial compartment. There is persistent mild degenerative arthrosis of the patellofemoral articulation. The soft tissue structures are unremarkable. STUDY: CT LEFT KNEE WITHOUT CONTRAST REASON FOR EXAM: Female, 58 years old. Knee trauma. RADIATION DOSAGE (If Supplied By Facility): CTDIvol = ( 15.35 ) mGy, DLP = ( 434.36 ) mGycm TECHNIQUE: Transaxial CT imaging of the left knee was performed. Coronal and sagittal images were reformatted. Individualized dose optimization techniques were used for this CT. COMPARISON: Left knee radiographs dated 06/17/2024. FINDINGS: There is moderate degenerative arthrosis of the medial femorotibial compartment with joint space narrowing, marginal osteophyte formation, and subchondral sclerosis. There is mild degenerative arthrosis of the lateral femorotibial compartment with mild marginal osteophyte formation. There is mild degenerative arthrosis of the patellofemoral compartment with mild marginal osteophyte formation. Normal proximal tibiofibular articulation. There is a small joint effusion. There is a 7 mm ossified loose body in the intercondylar notch (coronal reformat series 602 images 25-27). The quadriceps tendon is grossly normal. The patellar tendon is grossly normal. Normal Hoffa''s fat pad. The soft tissues are unremarkable. OV 02/21/24: She doesn't check her BP regularly at home. Denies any symptoms associated with HTN including chest pain, dizziness, palpitations, SOB. Drinks some tea Good with drinking water Doesn't add any salt Cooks at home primarily Doesn't exercise regularly Colonoscopy with Dr. Yusuf in 2010. It was normal and she is due for recheck. Mammogram in 2018- needed biopsy of right breast but it was normal. She is due for a screening mammogram. She is also due for routine labs. PAST MEDICAL HISTORY Diagnosis Date Dyspepsia and other specified disorders of function of stomach Essential hypertension, benign PAST SURGICAL HISTORY Procedure Laterality Date DELIVERY ONLY , low cervical COLONOSCOPY FLX DX W/COLLJ SPEC WHEN PFRMD 08/31/2011 Colonoscopy/repeat in EGD TRANSORAL BIOPSY SINGLE/MULTIPLE 10/04/10 ESOPHAGOGASTRODUODENOS COPY TRANSORAL DIAGNOSTIC 08/31/2011 EGD Social History Tobacco Use Smoking status: Never Smokeless tobacco: Never Substance Use Topics Alcohol use: No Drug use: No ALLERGIES Allergen Reactions Sulfa (Sulfonamide * itching, rash Family History Problem Relation Age of Onset Cancer Mother throat Heart Brother PA Diabetes Brother Coronary Artery Disease Brother PA Current Outpatient Medications Medication Sig Dispense Refill FLUoxetine (PROZAC) 20 mg capsule Take 1 capsule by mouth once daily. Take 1 capsule by mouth once daily 90 capsule 1 loratadine (ALLERGY RELIEF, LORATADINE,) 10 mg tablet Take 1 tablet by mouth once daily. 30 tablet 2 atenolol (TENORMIN) 25 mg tablet Take 1 tab (more content not included)... [facility] (AGFAMPLE) SUHAS ARCOS ([id number]) 1965 F Date Time Provider Department 05/30/24 NORA MCCARTNEY During your visit today, we recorded the following information about you: Melissa Hernandez MA 05/30/2024 7:47 AM Signed ----- Message from Melissa Hernandez MA sent at 02/28/2024 3:53 PM EDT ----- CBC- recheck in 3 months. Nora Mccartney APRN.NEUROPATHOLOGIST 07/07/2024 4:29 PM Signed Postpone until next appointment. Allergies As of Date: 05/30/2024 Noted Allergy Reaction SULFA (SULFONAMIDE ANTIBIOTICS) 10/19/2006 Comments: itching, rash Date Reviewed: 03/29/2024 Reviewed by: Rut Watkins MA - Fully Assessed Reason for Visit: Lab Orders [1978] Prescriptions as of 07/07/2024 - atenolol (TENORMIN) 25 mg tablet Take 1 tablet by mouth once daily. - Cholecalciferol, Vitamin D3, 25 mcg (1,000 unit) cap Take 1 capsule by mouth once daily. - FLUoxetine (PROZAC) 20 mg capsule Take 1 capsule by mouth once daily. Take 1 capsule by mouth once daily - loratadine (ALLERGY RELIEF, LORATADINE,) 10 mg tablet Take 1 tablet by mouth once daily. Problem List As Of Date 05/30/2024 Noted Resolved INSOMNIA NOS [G47.00] 07/04/2007 Anxiety state, unspecified [F41.1] 07/04/2007 06/28/2016 Headache(784.0) [R51] 07/04/2007 06/28/2016 Essential hypertension [I10] 07/04/2007 Major depressive disorder, recurrent episode (H*08/19/2007 CHOLELITHIASIS NOS [K80.20] 07/13/2008 Acute gastritis without mention of hemorrhage [*10/04/2010 Dyspepsia and other specified disorders of func*10/04/2010 11/16/2015 ASCUS on Pap smear [[id number]] 08/23/2011 Blood in stool [K92.1] 08/31/2011 03/24/2014 Anemia, unspecified [D64.9] 08/31/2011 06/28/2016 Iron deficiency anemia [D50.9] 09/28/2011 Neck pain [M54.2] 01/23/2013 06/28/2016 Cervicalgia [M54.2] 11/06/2013 Adjustment disorder with mixed anxiety and depr*12/29/2013 Psychic factors associated with diseases classi*12/29/2013 Sciatica [M54.30] 02/23/2015 Tension-type headache, not intractable [G44.209]01/27/2016 Abnormal mammogram [R92.8] 07/06/2017 Encounter Status:Closed by MELISSA HERNANDEZ on 05/30/24 [facility] SU[facility] ([id number]) 1965 F Date Time Provider Department 03/30/24 JULISSA JOHNSON [facility] During your visit today, we recorded the following information about you: Julissa Johnson PA 03/30/2024 8:00 AM Signed Negative for COVID flu RSV Rut Watkins MA 03/30/2024 8:27 AM Signed Left VM instructing patient to return call to receive results. DIVINE Flores Brandy 03/30/2024 10:48 AM Addendum Patient's called back and was given the below information and then he asked about medication recommendations, the nurses were unavailable to take the call at the time of the call and patient's spouse requested they call back to clarify what she can/should take over the counter. Spouse stated ok to leave detailed message if there is no answer Rut Juarez MA 03/30/2024 11:20 AM Signed Spoke with patient, discussed OTC medications for WISE and bodyaches such as alternating Tylenol and ibuprofen. Suggested f/u appt with pcp to explore further testing for severe bodyaches and headaches, but to proceed to ER sooner if patient feels as though pain is too bad. Rut Watkins MA Allergies As of Date: 03/30/2024 Noted Allergy Reaction SULFA (SULFONAMIDE ANTIBIOTICS) 10/19/2006 Comments: itching, rash Date Reviewed: 03/29/2024 Reviewed by: Rut Watkins MA - Fully Assessed Reason for Visit: Results [95] Prescriptions as of 03/30/2024 - atenolol (TENORMIN) 25 mg tablet Take 1 tablet by mouth once daily. - Cholecalciferol, Vitamin D3, 25 mcg (1,000 unit) cap Take 1 capsule by mouth once daily. - FLUoxetine (PROZAC) 20 mg capsule Take 1 capsule by mouth once daily. Take 1 capsule by mouth once daily - loratadine (ALLERGY RELIEF, LORATADINE,) 10 mg tablet Take 1 tablet by mouth once daily. Problem List As Of Date 03/30/2024 Noted Resolved INSOMNIA NOS [G47.00] 07/04/2007 Anxiety state, unspecified [F41.1] 07/04/2007 06/28/2016 Headache(784.0) [R51] 07/04/2007 06/28/2016 Essential hypertension [I10] 07/04/2007 Major depressive disorder, recurrent episode (H*08/19/2007 CHOLELITHIASIS NOS [K80.20] 07/13/2008 Acute gastritis without mention of hemorrhage [*10/04/2010 Dyspepsia and other specified disorders of func*10/04/2010 11/16/2015 ASCUS on Pap smear [[id number]] 08/23/2011 Blood in stool [K92.1] 08/31/2011 03/24/2014 Anemia, unspecified [D64.9] 08/31/2011 06/28/2016 Iron deficiency anemia [D50.9] 09/28/2011 Neck pain [M54.2] 01/23/2013 06/28/2016 Cervicalgia [M54.2] 11/06/2013 Adjustment disorder with mixed anxiety and depr*12/29/2013 Psychic factors associated with diseases classi*12/29/2013 Sciatica [M54.30] 02/23/2015 Tension-type headache, not intractable [G44.209]01/27/2016 Abnormal mammogram [R92.8] 07/06/2017 Encounter Status:Closed by YEFRI CHESTER on 03/30/24 Normal [facility] CNOVon 03-29-2024 CNOV Office Visit (UCWSTR ) SUHAS ARCOS ([id number]) 1965 F Date Time Provider Department 03/29/24 12:30 PM JULISSA JOHNSON WSTR During your visit today, we recorded the following information about you: Temperature Pulse Respiration Blood pressure 98.4 degrees 75/minute 18/minute 154/93 Weight 61.3 kg Julissa Johnson PA 03/29/2024 12:31 PM Signed Rest, increase water intake Motrin or Tylenol as needed for fever or pain. Salt water gargles, chloraseptic spray or lozenges as needed for sore throat. Warm beverages, honey. Nasal saline spray as needed Cool mist humidifier at night A cold normally lasts 7-10 days. If your symptoms are lasting longer, develop fever, or worsening by that time instead of improving then return to clinic or follow up with PCP for re-evaluation. Tylenol (generic acetaminophen) 500 mg-2 tabs every 8 hrs. as needed for fever and aches Ibuprofen 600 mg (3-200mg tablets) every 6 hours -You may try Flonase to help with any congestion. Julissa Johnson PA 03/29/2024 12:35 PM Signed This note was created using [employer]. Subjective Suhas Arcos is a 58 year old female. HPI 58-year-old female presents for headache, body aches starting today. Patient states that she got up today and had a headache and bodyaches. No fevers or chills. No congestion, cough, sore throat. She denies any vision changes, numbness or weakness in the arms or legs. No urinary symptoms. No sick contacts that she is aware of. She took Aleve which seem to help somewhat with the headache. No other complaint. PAST MEDICAL HISTORY Diagnosis Date Dyspepsia and other specified disorders of function of stomach Essential hypertension, benign PAST SURGICAL HISTORY Procedure Laterality Date DELIVERY ONLY , low cervical COLONOSCOPY FLX DX W/COLLJ SPEC WHEN PFRMD 08/31/2011 Colonoscopy/repeat in EGD TRANSORAL BIOPSY SINGLE/MULTIPLE 10/04/10 ESOPHAGOGASTRODUODENOS COPY TRANSORAL DIAGNOSTIC 08/31/2011 EGD ALLERGIES Sulfa (Sulfonamide Antibiotics) MEDICATIONS atenolol (TENORMIN) 25 mg tablet Take 1 tablet by mouth once daily. Cholecalciferol, Vitamin D3, 25 mcg (1,000 unit) cap Take 1 capsule by mouth once daily. FLUoxetine (PROZAC) 20 mg capsule Take 1 capsule by mouth once daily. Take 1 capsule by mouth once daily loratadine (ALLERGY RELIEF, LORATADINE,) 10 mg tablet Take 1 tablet by mouth once daily. FAMILY HISTORY Problem Relation Age of Onset Cancer Mother throat Heart Brother PA Diabetes Brother Coronary Artery Disease Brother PA Social History Tobacco Use Smoking status: Never Smokeless tobacco: Never Substance Use Topics Alcohol use: No Drug use: No Review of Systems Constitutional: Negative for chills and fever. HENT: Positive for sinus pressure. Negative for congestion, ear pain and sore throat. Respiratory: Negative for cough and shortness of breath. Cardiovascular: Negative for chest pain. Gastrointestinal: Negative for diarrhea and vomiting. Musculoskeletal: Positive for myalgias. Neurological: Positive for headaches. Objective BP 154/93 Pulse 75 Temp 36.9 ?C (98.4 ?F) Resp 18 Wt 61.3 kg (135 lb 2.3 oz) LMP 04/26/2017 SpO2 100% BMI 26.39 kg/m? Physical Exam Vitals and nursing note reviewed. Constitutional: General: She is not in acute distress. Appearance: Normal appearance. She is not toxic-appearing. HENT: Right Ear: Tympanic membrane and ear canal normal. Left Ear: Tympanic membrane and ear canal normal. Nose: Nose normal. Mouth/Throat: Mouth: Mucous membranes are moist. Pharynx: No oropharyngeal exudate or posterior oropharyngeal erythema. Eyes: Conjunctiva/sclera: Conjunctivae normal. Cardiovascular: Rate and Rhythm: Normal rate and regular rhythm. Pulmonary: Effort: Pulmonary effort is normal. Breath sounds: Normal breath sounds. No wheezing, rhonchi or rales. Abdominal: Tenderness: There is no right CVA tenderness or left CVA tenderness. Neurological: General: No focal deficit present. Mental Status: She is alert and oriented to person, place, and time. Motor: No weakness. Gait: Gait normal. Assessment and Plan ASSESSMENT/PLAN: 1. Viral illness - ICD9: 079.99, ICD10: B34.9 - Discussed viral etiology and rationale for treatment. - Symptomatic treatment with prn analgesia - Supportive care with fluids and rest - The patient may also use Tylenol and Motrin or Aleve as needed for body aches and headache. -If headache worsens, worsening of life, vision changes, go to ER. - COVID AND INFLUENZA A/B AND RSV NAAT, ROUTINE Diagnosis and treatment plan were discussed and questions were answered to the patient's satisfaction. Pt acknowledged understanding of concepts and follow up plan. Specific signs and symptoms that would indicate the need for higher level (more content not included)... Normal [facility] COVID AND INFLUENZA A/B AND RSV NAAT, ROUTINEon 03-29-2024 SARS-CoV-2 (COVID-19) RNA LILIBETH+probe Ql (Unsp spec) COVID 19 RESULT: Not detected The method used is RT-PCR or an equivalent NAAT method. Reference Range (the expected result in uninfected individuals): Not detected INFLUENZA A PCR: Not detected INFLUENZA B PCR: Not detected RSV PCR: Not detected Normal [facility] Comment on above: Performed By: #### C VFLRS ####[facility] LABCLIA [id number] [address] [address] [facility] Nidhi 02-27-2024 CURRY Telephone (AGFAMPLE) SUHAS ARCOS ([id number]) 1965 F Date Time Provider Department 02/27/24 NORA MCCRATNEY During your visit today, we recorded the following information about you: Nora Mccartney APRN.NEUROPATHOLOGIST 02/27/2024 4:55 PM Signed Please call the patient with results: TSH, vitamin D, and CMP were all WNL A1C is in prediabetic range- watch diet for sugar and carbs. Platelets are only slightly elevated on CBC- recheck in 3 months. Lipid panel shows elevated triglycerides, LDL, and total cholesterol. Recommend diet changes- limit red meats, increase fiber, limit saturated fats, sugar. Increase exercise at 150 minutes a week. Melissa Hernandez MA 02/28/2024 3:53 PM Signed Patient is informed reminder placed Melissa Hernandez MA Allergies As of Date: 02/27/2024 Noted Allergy Reaction SULFA (SULFONAMIDE ANTIBIOTICS) 10/19/2006 Comments: itching, rash Date Reviewed: 02/21/2024 Reviewed by: Nora Mccartney APRN.[facility] - Fully Assessed Reason for Visit: Results [95] Prescriptions as of 02/28/2024 - atenolol (TENORMIN) 25 mg tablet Take 1 tablet by mouth once daily. - Cholecalciferol, Vitamin D3, 25 mcg (1,000 unit) cap Take 1 capsule by mouth once daily. - FLUoxetine (PROZAC) 20 mg capsule Take 1 capsule by mouth once daily. Take 1 capsule by mouth once daily - loratadine (ALLERGY RELIEF, LORATADINE,) 10 mg tablet Take 1 tablet by mouth once daily. Problem List As Of Date 02/27/2024 Noted Resolved INSOMNIA NOS [G47.00] 07/04/2007 Anxiety state, unspecified [F41.1] 07/04/2007 06/28/2016 Headache(784.0) [R51] 07/04/2007 06/28/2016 Essential hypertension [I10] 07/04/2007 Major depressive disorder, recurrent episode (H*08/19/2007 CHOLELITHIASIS NOS [K80.20] 07/13/2008 Acute gastritis without mention of hemorrhage [*10/04/2010 Dyspepsia and other specified disorders of func*10/04/2010 11/16/2015 ASCUS on Pap smear [UXI7269] 08/23/2011 Blood in stool [K92.1] 08/31/2011 03/24/2014 Anemia, unspecified [D64.9] 08/31/2011 06/28/2016 Iron deficiency anemia [D50.9] 09/28/2011 Neck pain [M54.2] 01/23/2013 06/28/2016 Cervicalgia [M54.2] 11/06/2013 Adjustment disorder with mixed anxiety and depr*12/29/2013 Psychic factors associated with diseases classi*12/29/2013 Sciatica [M54.30] 02/23/2015 Tension-type headache, not intractable [G44.209]01/27/2016 Abnormal mammogram [R92.8] 07/06/2017 Encounter Status:Closed by MELISSA HERNANDEZ on 02/28/24 Normal [facility] 25(OH)D3 [facility] 2023 25-hydroxyvitamin D3 [Mass/Vol] 40.2 ng/mL Normal 31.0-80.0 [facility] Comment on above: Order Comment: Speci men Type: BLOOD SPECIMENOrdering Facility: [facility] Address: [address] [place] [address] Result Comment: Clas sification of 25 [place] Vitamin D status: Deficiency/Insufficiency: < or = 30 ng/ml. Sufficiency/Optimal Levels: 31-80 ng/mL Toxicity: > 100 ng/mL. Test performed by chemiluminescent immunoassay. Performed By: #### 1 989-3 ####[facility] LABCLIA [id number] [place] [address] [place] CBC W Auto Differential pane l (Bld)on 02-22-2024 Basophils (Bld) [#/Vol] 0.08 10*3/uL Normal <0.11 [facility] Comment on above: Order Comment: Speci men Type: BLOOD SPECIMENOrdering Facility: [facility] Address: [address] [place] [address] Performed By: #### 5 7021-8 ####[facility] LABCLIA [id number] [place] [address] [place] Basophils/100 WBC (Bld) 0.9 % Normal [facility] Comment on above: Order Comment: Speci men Type: BLOOD SPECIMENOrdering Facility: [facility] Address: [address] [place] [address] Performed By: #### 5 7021-8 ####[facility] LABCLIA [id number] [place] [address] [place] Differential cell count method Nom (Bld) Auto Normal [facility] Comment on above: Order Comment: Speci men Type: BLOOD SPECIMENOrdering Facility: [facility] Address: [address] [place] [address] Performed By: #### 5 7021-8 ####[facility] LABCLIA [id number] [place] [address] [place] Eosinophils (Bld) [#/Vol] 0.43 10*3/uL Normal <0.46 [facility] Comment on above: Order Comment: Speci men Type: BLOOD SPECIMENOrdering Facility: [facility] Address: [address] [place] [address] Performed By: #### 5 7021-8 ####[facility] LABCLIA [id number] [place] [address] [place] Eosinophils/100 WBC (Bld) 4.7 % Normal [facility] Comment on above: Order Comment: Speci men Type: BLOOD SPECIMENOrdering Facility: [facility] Address: [address] [place] [address] Performed By: #### 5 7021-8 ####[facility] LABIA [id number] [place] [address] [place] Erythrocyte distribution width (RBC) [Ratio] 13.3 % Normal 11.5-15.0 [facility] Comment on above: Order Comment: Speci men Type: BLOOD SPECIMENOrdering Facility: [facility] Address: [address] [place] [address] Performed By: #### 5 7021-8 ####[facility] LABIA [id number] [place] [address] [place] Hematocrit (Bld) [Volume fraction] 39.6 % Normal 36.0-46.0 [facility] Comment on above: Order Comment: Speci men Type: BLOOD SPECIMENOrdering Facility: [facility] Address: [address] [place] [address] Performed By: #### 5 7021-8 ####[facility] LABIA [id number] [place] [address] [place] Hemoglobin (Bld) [Mass/Vol] 12.4 g/dL Normal 11.5-15.5 [facility] Comment on above: Order Comment: Speci men Type: BLOOD SPECIMENOrdering Facility: [facility] Address: [address] [place] [address] Performed By: #### 5 7021-8 ####[facility] LABIA [id number] [place] [address] [place] Immature granulocytes (Bld) [#/Vol] 0.04 10*3/uL Normal <0.10 [facility] Comment on above: Order Comment: Speci men Type: BLOOD SPECIMENOrdering Facility: [facility] Address: [address] [place] [address] Performed By: #### 5 7021-8 ####[facility] LABCLIA [id number] [place] [address] [place] Immature granulocytes/100 WBC (Bld) 0.4 % Normal [facility] Comment on above: Order Comment: Speci men Type: BLOOD SPECIMENOrdering Facility: [facility] Address: [address] [place] [address] Performed By: #### 5 7021-8 ####[facility] LABCLIA [id number] [place] [address] [place] Lymphocytes (Bld) [#/Vol] 3.96 10*3/uL Normal 1.00-4.00 [facility] Comment on above: Order Comment: Speci men Type: BLOOD SPECIMENOrdering Facility: [facility] Address: [address] [place] [address] Performed By: #### 5 7021-8 ####[facility] LABCLIA [id number] [place] [address] [place] Lymphocytes/100 WBC (Bld) 43.7 % Normal [facility] Comment on above: Order Comment: Speci men Type: BLOOD SPECIMENOrdering Facility: [facility] Address: [address] [place] [address] Performed By: #### 5 7021-8 ####[facility] LABCLIA [id number] [place] [address] [place] MCH (RBC) [Entitic mass] 27.6 pg Normal 26.0-34.0 [facility] Comment on above: Order Comment: Speci men Type: BLOOD SPECIMENOrdering Facility: [facility] Address: [address] [place] [address] Performed By: #### 5 7021-8 ####[facility] LABCLIA [id number] [place] [address] [place] MCHC (RBC) [Mass/Vol] 31.3 g/dL Normal 30.5-36.0 [facility] Comment on above: Order Comment: Speci men Type: BLOOD SPECIMENOrdering Facility: [facility] Address: [address] [place] [address] Performed By: #### 5 7021-8 ####[facility] LABIA [id number] [place] [address] [place] MCV (RBC) [Entitic vol] 88.2 fL Normal 80.0-100.0 [facility] Comment on above: Order Comment: Speci men Type: BLOOD SPECIMENOrdering Facility: [facility] Address: [address] [place] [address] Performed By: #### 5 7021-8 ####[facility] LABIA [id number] [place] [address] [place] Monocytes (Bld) [#/Vol] 0.68 10*3/uL Normal <0.87 [facility] Comment on above: Order Comment: Speci men Type: BLOOD SPECIMENOrdering Facility: [facility] Address: [address] [place] [address] Performed By: #### 5 7021-8 ####[facility] LABIA [id number] [place] [address] [place] Monocytes/100 WBC (Bld) 7.5 % Normal [facility] Comment on above: Order Comment: Speci men Type: BLOOD SPECIMENOrdering Facility: [facility] Address: [address] [place] [address] Performed By: #### 5 7021-8 ####[facility] LABCLIA [id number] [place] [address] [place] Neutrophils (Bld) [#/Vol] 3.88 10*3/uL Normal 1.45-7.50 [facility] Comment on above: Order Comment: Speci men Type: BLOOD SPECIMENOrdering Facility: [facility] Address: [address] [place] [address] Performed By: #### 5 7021-8 ####[facility] LABCLIA [id number] [place] [address] [place] Neutrophils/100 WBC (Bld) 42.8 % Normal [facility] Comment on above: Order Comment: Speci men Type: BLOOD SPECIMENOrdering Facility: [facility] Address: [address] [place] [address] Performed By: #### 5 7021-8 ####[facility] LABCLIA [id number] [place] [address] [place] Nucleated RBC (Bld) [#/Vol] 10*3/uL Normal <0.01 [facility] Comment on above: Order Comment: Speci men Type: BLOOD SPECIMENOrdering Facility: [facility] Address: [address] [place] [address] Performed By: #### 5 7021-8 ####[facility] LABIA [id number] [place] [address] [place] Nucleated RBC/100 WBC (Bld) [Ratio] 0.0 /100 WBC Normal [facility] Comment on above: Order Comment: Speci men Type: BLOOD SPECIMENOrdering Facility: [facility] Address: [address] [place] [address] Performed By: #### 5 7021-8 ####[facility] LABIA [id number] [place] [address] [place] Platelet mean volume (Bld) [Entitic vol] 9.6 fL Normal 9.0-12.7 [facility] Comment on above: Order Comment: Speci men Type: BLOOD SPECIMENOrdering Facility: [facility] Address: [address] [place] [address] Performed By: #### 5 7021-8 ####[facility] LABIA [id number] [place] [address] [place] Platelets (Bld) [#/Vol] 418 10*3/uL High 150-400 [facility] Comment on above: Order Comment: Speci men Type: BLOOD SPECIMENOrdering Facility: [facility] Address: [address] [place] [address] Performed By: #### 5 7021-8 ####[facility] LABCLIA [id number] [address] [address] [place] RBC (Bld) [#/Vol] 4.49 10*6/uL Normal 3.90-5.20 [facility] Comment on above: Order Comment: Speci men Type: BLOOD SPECIMENOrdering Facility: [facility] Address: [address] [place] [address] Performed By: #### 5 7021-8 ####[facility] LABCLIA [id number] [place] [address] [place] WBC (Bld) [#/Vol] 9.07 10*3/uL Normal 3.70-11.00 [facility] Comment on above: Order Comment: Speci men Type: BLOOD SPECIMENOrdering Facility: [facility] Address: [address] [place] [address] Performed By: #### 5 7021-8 ####[facility] LABCLIA [id number] [place] [address] [place] Comprehensive metabolic 2000 panelon 02-22-2024 Albumin [Mass/Vol] 4.1 g/dL Normal 3.9-4.9 [facility] Comment on above: Order Comment: Speci men Type: BLOOD SPECIMENOrdering Facility: [facility] Address: [address] [place] [address] Performed By: #### 2 4331-1, 3016-3, 90185-5 ####[facility] LABCLIA [id number] [place] [address] [place] ALP [Catalytic activity/Vol] 81 U/L Normal 34-123 [facility] Comment on above: Order Comment: Speci men Type: BLOOD SPECIMENOrdering Facility: [facility] Address: [address] [id number] Performed By: #### 2 4331-1, 3015-3, ####[facility] LABCLIA [id number] [place] [id number] [place] ALT [Catalytic activity/Vol] 22 U/L Normal 7-38 [facility] Comment on above: Order Comment: Speci men Type: BLOOD SPECIMENOrdering Facility: [facility] Address: [address] [place] [address] Performed By: #### 2 4331-1, 3, ####[facility] LABIA [id number] [place] [address] [place] Anion gap [Moles/Vol] 11 mmol/L Normal 9-18 [facility] Comment on above: Order Comment: Speci men Type: BLOOD SPECIMENOrdering Facility: [facility] Address: [address] [place] [address] Performed By: #### 2 4331-1, 3, ####[facility] LABIA [id number] [place] [address] [place] AST [Catalytic activity/Vol] 30 U/L Normal 13-35 [facility] Comment on above: Order Comment: Speci men Type: BLOOD SPECIMENOrdering Facility: [facility] Address: [address] [id number] Performed By: #### 2 4331-1, 3, ####[facility] LABIA [id number] [place] [id number] [place] Bilirubin [Mass/Vol] 0.3 mg/dL Normal 0.2-1.3 [facility] Comment on above: Order Comment: Speci men Type: BLOOD SPECIMENOrdering Facility: [facility] Address: [address] [place] [address] Performed By: #### 2 4331-1, 3015-3, 37133-8 ####[facility] LABCLIA [id number] [address] [address] [place] Calcium [Mass/Vol] 9.7 mg/dL Normal 8.5-10.2 [facility] Comment on above: Order Comment: Speci men Type: BLOOD SPECIMENOrdering Facility: [facility] Address: [address] [place], [place] [address] Performed By: #### 2 4331-1, 3015-3, ####[facility] LABIA [id number] [place] [address] [place] Chloride [Moles/Vol] 103 mmol/L Normal 97-105 [facility] Comment on above: Order Comment: Speci men Type: BLOOD SPECIMENOrdering Facility: [facility] Address: [address] [place], [place] [address] Performed By: #### 2 4331-1, 3015-3, ####[facility] LABIA [id number] [place] [id number] [place] CO2 [Moles/Vol] 24 mmol/L Normal 22-30 [facility] Comment on above: Order Comment: Speci men Type: BLOOD SPECIMENOrdering Facility: [facility] Address: [address] [place] [address] Performed By: #### 2 4331-1, 3015-3, 60345-1 ####[facility] LABIA [id number] [address] [address] [place] Creatinine [Mass/Vol] 0.73 mg/dL Normal 0.58-0.96 [facility] Comment on above: Order Comment: Speci men Type: BLOOD SPECIMENOrdering Facility: [facility] Address: [address] [place] [address] Performed By: #### 2 4331-1, 3015-3, 71167-9 ####[facility] LABIA [id number] [place] [address] [place] Creatinine and Glomerular filtration rate.predicted panel (S/P/Bld) 95 mL/min/1.73m??? Normal >=60 [facility] Comment on above: Order Comment: Avery luevano Type: BLOOD SPECIMENOrdering Facility: [facility] Address: [address] [place] [address] Result Comment: Violet mated Glomerular Filtration Rate (eGFR) is calculated using the 2020 CKD-EPI creatinine equation. This equation utilizes serum creatinine, sex, and age as parameters. The creatinine assay has traceable calibration to isotope dilution-mass spectrometry. Refer to KDIGO guidelines for clinical interpretation. In patients with unstable renal function, e.g. those with acute kidney injury, the eGFR may not accurately reflect actual GFR. Performed By: #### 2 4331-1, 3016-3, 58670-0 ####[facility] LABIA [id number] [place] [address] [place] Glucose [Mass/Vol] 84 mg/dL Normal 74-99 [facility] Comment on above: Order Comment: Avery luevano Type: BLOOD SPECIMENOrdering Facility: [facility] Address: [address] [place] [address] Result Comment: The [place] Diabetes Association (ADA) provides guidance for cutoff values for fasting glucose and random glucose. The ADA defines fasting as no caloric intake for at least 8 hours. Fasting plasma glucose results between 100 to 125 mg/dL indicate increased risk for diabetes (prediabetes). Fasting plasma glucose results greater than or equal to 126 mg/dL meet the criteria for diagnosis of diabetes. In the absence of unequivocal hyperglycemia, results should be confirmed by repeat testing. In a patient with classic symptoms of hyperglycemia or hyperglycemic crisis, random plasma glucose results greater than or equal to 200 mg/dL meet the criteria for diagnosis of diabetes. Reference: Standards of Medical Care in Diabetes 2016, [place] Diabetes Association. Diabetes Care. 2016.39(Suppl 1). Performed By: #### 2 4331-1, 3016-3, ####[facility] LABCLIA [id number] [address] [address] [place] Potassium [Moles/Vol] 4.6 mmol/L Normal 3.7-5.1 [facility] Comment on above: Order Comment: Speci men Type: BLOOD SPECIMENOrdering Facility: [facility] Address: [address] [place] [address] Performed By: #### 2 4331-1, 3015-12, ####[facility] LABCLIA [id number] [address] [address] [place] Protein [Mass/Vol] 7.0 g/dL Normal 6.3-8.0 [facility] Comment on above: Order Comment: Speci men Type: BLOOD SPECIMENOrdering Facility: [facility] Address: [address] [place] [address] Performed By: #### 2 4331-1, 3015-12, ####[facility] LABCLIA [id number] [address] [address] [place] Sodium [Moles/Vol] 138 mmol/L Normal 136-144 [facility] Comment on above: Order Comment: Speci men Type: BLOOD SPECIMENOrdering Facility: [facility] Address: [address] [place] [address] Performed By: #### 2 4331-1, 3015-12, ####[facility] LABCLIA [id number] [address] [address] [place] Urea nitrogen [Mass/Vol] 13 mg/dL Normal 7-21 [facility] Comment on above: Order Comment: Speci men Type: BLOOD SPECIMENOrdering Facility: [facility] Address: [address] [place] [address] Performed By: #### 2 4331-1, 3015-12, ####[facility] LABCLIA [id number] [address] [place] HbA1c (Bld)on 02-22-2024 Average glucose Estimated from glycated hemoglobin (Bld) [Mass/Vol] 117 mg/dL Normal [facility] Comment on above: Order Comment: Avery luevano Type: BLOOD SPECIMENOrdering Facility: [facility] Address: [address] [place] [address] Result Comment: eAG: (Estimated average glucose) is a calculated value from HgbA1c and is service representative of the average blood glucose level in the last 2-3 month period. Performed By: #### 5 5454-3 ####[facility] LABCLIA [id number] [address] STATES OF [facility] HbA1c (Bld) [Mass fraction] 5.7 % High 4.3-5.6 [facility] Comment on above: Order Comment: Avery luevano Type: BLOOD SPECIMENOrdering Facility: [facility] Address: [address] [place] [address] Result Comment: Amer ican Diabetes Association guidelines indicate that patients with HgbA1c in the range 5.7-6.4% are at increased risk for development of diabetes, and intervention by lifestyle modification may be beneficial. HgbA1c greater or equal to 6.5% is considered diagnostic of diabetes. Performed By: #### 5 5454-3 ####[facility] LABCLIA [id number] [address] OF [place] Lipid 1996 panelon 4 Cholesterol [Mass/Vol] 209 mg/dL High <200 [facility] Comment on above: Order Comment: Avery luevano Type: BLOOD SPECIMENOrdering Facility: [facility] Address: [address] [place] [address] Result Comment: <200 mg/dL, Desirable 200-239 mg/dL, Borderline high >239 mg/dL, High Performed By: #### 2 4331-1, 3016-3, 26390-0 ####[facility] LABCLIA [id number] [address] [place] Cholesterol in HDL [Mass/Vol] 38 mg/dL Low >39 [facility] Comment on above: Order Comment: Speci men Type: BLOOD SPECIMENOrdering Facility: [facility] Address: [address] [place] [address] Result Comment: 40-5 9 mg/dL, Acceptable >59 mg/dL, High: Negative risk factor for coronary heart disease <40 mg/dL, Low: Positive risk factor for coronary heart disease Performed By: #### 2 4331-1, 3015-3, ####[facility] LABCLIA [id number] [address] [place] Cholesterol in LDL [Mass/Vol] 134 mg/dL High <100 [facility] Comment on above: Order Comment: Avery bassem Type: BLOOD SPECIMENOrdering Facility: [facility] Address: [address] [place] [address] Result Comment: <100 mg/dL, Optimal 100-129 mg/dL, Near optimal/above optimal 130-159 mg/dL, Borderline high 160-189 mg/dL, High >189 mg/dL, Very high Secondary prevention optimal LDL Cholesterol levels are recommended to be < 70 mg/dL Performed By: #### 2 4331-1, 3015-12, ####[facility] LABCLIA [id number] [address] [place] Cholesterol in LDL/Cholesterol in HDL [Mass ratio] 3.53 {ratio} High <2.54 [facility] Comment on above: Order Comment: Charlai men Type: BLOOD SPECIMENOrdering Facility: [facility] Address: [address] [place] [address] Result Comment: Kwame pride: 1. National Cholesterol Education Program ATP III Guideline At-A-Glance Quick Desk Reference: National Heart, Lung, and Blood Redmon. National Institutes of Health. 2001: NIH Publication No. 01-3305. 2. An International Atherosclerosis Society position paper: global recommendations for the management of dyslipidemia: executive summary, Atherosclerosis. 2014: 232(2):410-413. Performed By: #### 2 4331-1, 3015-3, ####[facility] LABCLIA [id number] [address] [address] [place] Cholesterol in VLDL [Mass/Vol] 37 mg/dL High <30 [facility] Comment on above: Order Comment: Speci men Type: BLOOD SPECIMENOrdering Facility: [facility] Address: [address] [place] [address] Performed By: #### 2 4331-1, 3, ####[facility] LABCLIA [id number] [place] [address] [place] Cholesterol non HDL [Mass/Vol] 171 mg/dL High <130 [facility] Comment on above: Order Comment: Speci men Type: BLOOD SPECIMENOrdering Facility: [facility] Address: [address] [place] [address] Result Comment: <130 mg/dL, Optimal 130-159 mg/dL, Near optimal/above optimal 160-189 mg/dL, Borderline high 190-219 mg/dL, High >219 mg/dL, Very high Secondary prevention optimal non HDL Cholesterol levels are recommended to be <100 mg/dL Performed By: #### 2 4331-1, 3015-3, ####[facility] LABCLIA [id number] [address] [address] [place] Cholesterol.total/Ch olesterol in HDL [Mass ratio] 5.50 {ratio} High <5.10 [facility] Comment on above: Order Comment: Speci men Type: BLOOD SPECIMENOrdering Facility: [facility] Address: [address] [place] [id number] Performed By: #### 2 4331-1, 3015-3, ####[facility] LABCLIA [id number] [address] [address] [place] FASTING TIME 12 hrs Normal [facility] Comment on above: Order Comment: Speci men Type: BLOOD SPECIMENOrdering Facility: [facility] Address: [address] [place] [address] Performed By: #### 2 4331-1, 6-3, 35106-2 ####[facility] LABCLIA [id number] [place] [address] [place] Triglyceride [Mass/Vol] 184 mg/dL High <150 [facility] Comment on above: Order Comment: Speci men Type: BLOOD SPECIMENOrdering Facility: [facility] Address: [address] [place] [address] Result Comment: <150 mg/dL, Normal 150-199 mg/dL, Borderline high 200-499 mg/dL, High >499 mg/dL, Very high Performed By: #### 2 4331-1, 3016-3, 72825-0 ####[facility] LABCLIA [id number] [place] [address] [place] TSH SerPl-aCncon 02-22-2024 TSH Qn 2.930 m[IU]/L Normal 0.270-4.200 [facility] Comment on above: Order Comment: Speci men Type: BLOOD SPECIMENOrdering Facility: [facility] Address: [address] [place] [address] Performed By: #### 2 4331-1, 3016-3, 35971-0 ####[facility] LABCLIA [id number] [address] [place] CNOVon 02-21-2024 CNOV Office Visit (AGFAMPLE) SUHAS ARCOS ([id number]) 1965 F Date Time Provider Department 02/21/24 10:40 AM NORA MCCARTNEY During your visit today, we recorded the following information about you: Temperature Pulse Respiration Blood pressure 98 degrees 82/minute 16/minute 122/70 Weight Height 62.6 kg 1.524 m Nora Mccartney [employer] SET UP MECHANIC.NEUROPATHOLOGIST 02/21/2024 5:18 PM Signed [facility] Nora Mccartney AUTOMATIC LINE SET UP MECHANIC-NEUROPATHOLOGIST [address] [place] [address] Dept Dept. Visit Date: February 21, 2024 Ms.Jaswinder Arcos Date of : 1965 MRN/E #: [id number] Chief Complaint: Patient presents with: Establish Care History of Present Illness Suhas Arcos is a 58 year old female presents today as a new patient to establish care. I reviewed past medical, surgical, social, and family histories today and updated chart. Allergies, chronic medications, and supplements were also reviewed. PMH of HTN. She doesn't check her BP regularly at home. Denies any symptoms associated with HTN including chest pain, dizziness, palpitations, SOB. Drinks some tea Good with drinking water Doesn't add any salt Cooks at home primarily Doesn't exercise regularly Colonoscopy with Dr. Yusuf in 2010. It was normal and she is due for recheck. Mammogram in 2018- needed biopsy of right breast but it was normal. She is due for a screening mammogram. She is also due for routine labs. The history is provided by the patient. PAST MEDICAL HISTORY Diagnosis Date Dyspepsia and other specified disorders of function of stomach Essential hypertension, benign PAST SURGICAL HISTORY Procedure Laterality Date DELIVERY ONLY , low cervical COLONOSCOPY FLX DX W/COLLJ SPEC WHEN PFRMD 08/31/2011 Colonoscopy/repeat in EGD TRANSORAL BIOPSY SINGLE/MULTIPLE 10/04/10 ESOPHAGOGASTRODUODENOS COPY TRANSORAL DIAGNOSTIC 08/31/2011 EGD Social History Tobacco Use Smoking status: Never Smokeless tobacco: Never Substance Use Topics Alcohol use: No Drug use: No Social History Social History Narrative Not on file Family History Reviewed Including Cardiac Diseases, Psychiatric Diseases, AND Substance Abuse Problem: Cancer Relation: Mother Age of Onset: (Not Specified) Comment: throat Problem: Heart Relation: Brother Age of Onset: (Not Specified) Comment: PA Problem: Diabetes Relation: Brother Age of Onset: (Not Specified) Problem: Coronary Artery Disease Relation: Brother Age of Onset: (Not Specified) Comment: PA ALLERGIES Allergen Reactions Sulfa (Sulfonamide * itching, rash Current Outpatient Medications Medication Sig loratadine (ALLERGY RELIEF, LORATADINE,) 10 mg tablet Take 1 tablet by mouth once daily. atenolol (TENORMIN) 25 mg tablet Take 1 tablet by mouth once daily. Cholecalciferol, Vitamin D3, 25 mcg (1,000 unit) cap Take 1 capsule by mouth once daily. FLUoxetine (PROZAC) 20 mg capsule Take 1 capsule by mouth once daily. Take 1 capsule by mouth once daily No current facility-administered medications for this visit. Review of Systems Review of Systems Constitutional: Negative for appetite change, fatigue and unexpected weight change. HENT: Negative for dental problem, hearing loss, tinnitus and trouble swallowing. Eyes: Negative for visual disturbance. Respiratory: Negative for apnea, cough and shortness of breath. Cardiovascular: Negative for chest pain, palpitations and leg swelling. Gastrointestinal: Negative for abdominal distention, abdominal pain, blood in stool, constipation, diarrhea, nausea and vomiting. Genitourinary: Negative for frequency, hematuria, menstrual problem and urgency. Musculoskeletal: Negative for arthralgias, back pain, joint swelling, myalgias and neck pain. Skin: Negative. Allergic/Immunologic: Negative for environmental allergies. Neurological: Negative for dizziness, weakness, light-headedness, numbness and headaches. Hematological: Does not bruise/bleed easily. Psychiatric/Behavioral : Negative for dysphoric mood and sleep disturbance. The patient is not nervous/anxious. Vital Signs BP 122/70 Pulse 82 Temp 98 Resp 16 Ht 5' 0 (1.52m) Wt 138 lb (62.6kg) SpO2 98% LMP 04/26/2017 BMI 26.95 kg/(m2). Physical Exam Vitals and nursing note reviewed. Constitutional: Appearance: Normal appearance. HENT: Head: Normocephalic. Right Ear: Tympanic membrane, ear canal and external ear normal. Left Ear: Tympanic membrane, ear canal and external ear normal. Nose: Nose normal. Mouth/Throat: Mouth: Mucous membranes are moist. Pharynx: Oropharynx is clear. Uvula midline. No posterior oropharyngeal erythema. Eyes: Pupils: Pupils are equal, round, and reactive to light. Cardiovascular: Rate and Rhythm: Normal rat (more content not included)... Normal [facility] CNOVon 02-05-2024 CNOV Office Visit (UCWSTR ) SUHAS ARCOS ([id number]) 1965 F Date Time Provider Department 02/05/24 4:30 PM JULISSA JOHNSON [facility] During your visit today, we recorded the following information about you: Temperature Pulse Respiration Blood pressure 97.2 degrees 79/minute 18/minute 126/76 Weight 62.9 kg Julissa Johnson PA 02/05/2024 4:59 PM Signed This note was created using [employer]. Subjective Suhas Arcos is a 58 year old female. HPI 58-year-old female presents for congestion, cough, sneezing, fatigue, headache for about 6 days. Patient states that last week she started getting sick with some sinus pressure, nasal congestion and sneezing. She states that she has yellow nasal drainage. She reports sinus headache and sinus pressure above her eyebrows. She states that her eyes feel heavy . She states that they just feel tired. No vision changes. No drainage from the eyes. She states that she feels fatigued in general over the past few days as well. She has not had any fevers. No vomiting or diarrhea. Still eating and drinking. No sick contacts that she is aware of. PAST MEDICAL HISTORY Diagnosis Date Dyspepsia and other specified disorders of function of stomach Essential hypertension, benign Hyperlipidemia PAST SURGICAL HISTORY Procedure Laterality Date DELIVERY ONLY , low cervical COLONOSCOPY FLX DX W/COLLJ SPEC WHEN PFRMD 08/31/2011 Colonoscopy/repeat in EGD TRANSORAL BIOPSY SINGLE/MULTIPLE 10/04/10 ESOPHAGOGASTRODUODENOS COPY TRANSORAL DIAGNOSTIC 08/31/2011 EGD ALLERGIES Sulfa (Sulfonamide Antibiotics) MEDICATIONS atenolol (TENORMIN) 25 mg tablet Take 1 tablet by mouth once daily. loratadine (ALLERGY RELIEF, LORATADINE,) 10 mg tablet Take 1 tablet by mouth once daily. Cholecalciferol, Vitamin D3, 1,000 unit cap Take 1 capsule by mouth once daily. amoxicillin-clavulanat e potassium (AUGMENTIN) 875-125 mg per tablet Take 1 tablet by mouth two times a day for 5 days. FAMILY HISTORY Problem Relation Age of Onset Cancer Mother throat Heart Brother mi Diabetes Brother Coronary Artery Disease Brother PA Social History Tobacco Use Smoking status: Never Smokeless tobacco: Never Substance Use Topics Alcohol use: No Drug use: No Review of Systems Constitutional: Positive for fatigue. Negative for chills and fever. HENT: Positive for congestion, sinus pressure, sinus pain and sneezing. Negative for ear pain and sore throat. Respiratory: Positive for cough. Negative for shortness of breath. Cardiovascular: Negative for chest pain. Gastrointestinal: Negative for diarrhea and vomiting. Neurological: Positive for headaches. Objective BP 126/76 Pulse 79 Temp 36.2 ?C (97.2 ?F) (Tympanic) Resp 18 Wt 62.9 kg (138 lb 10.7 oz) LMP 04/26/2017 SpO2 96% BMI 28.01 kg/m? Physical Exam Vitals and nursing note reviewed. Constitutional: General: She is not in acute distress. Appearance: Normal appearance. She is not toxic-appearing. HENT: Right Ear: Tympanic membrane and ear canal normal. Left Ear: Tympanic membrane and ear canal normal. Nose: Mucosal edema and congestion present. Right Sinus: Frontal sinus tenderness present. No maxillary sinus tenderness. Left Sinus: Frontal sinus tenderness present. No maxillary sinus tenderness. Mouth/Throat: Mouth: Mucous membranes are moist. Eyes: General: Lids are normal. Vision grossly intact. Extraocular Movements: Extraocular movements intact. Conjunctiva/sclera: Conjunctivae normal. Pupils: Pupils are equal, round, and reactive to light. Cardiovascular: Rate and Rhythm: Normal rate and regular rhythm. Pulmonary: Effort: Pulmonary effort is normal. Breath sounds: Normal breath sounds. Skin: General: Skin is warm and dry. Neurological: Mental Status: She is alert. Assessment and Plan ASSESSMENT/PLAN: 1. Bacterial sinusitis - ICD9: 473.9, 041.9, ICD10: J32.9, B96.89 (primary diagnosis) - Will begin treatment with Augmentin 875 mg PO BID for 5 days - Supportive care with plenty of fluids, rest, and analgesia prn. 2. Fatigue, unspecified type - ICD9: 780.79, ICD10: R53.83 -Suspect viral illness. Likely cause of fatigue. -Patient declines viral swab, states she has no insurance. -Discussed if symptoms continue, needs close follow-up with PCP. Patient understands. Diagnosis and treatment plan were discussed and questions were answered to the patient's satisfaction. Pt acknowledged understanding of concepts and follow up plan. Specific signs and symptoms that would indicate the need for higher level of care were discussed in detail warranting prompt ER evaluation. PRINCE Colón Referring Provider: SELF [200] Allergies As of Date: 02/05/2024 Noted Allergy Reaction SULFA (SULFONAMIDE ANTIBIOTICS) 10/19/2006 Comments: (more content not included)... Normal [facility] CNOVon 09-12-2023 CNOV Office Visit (UCWSTR ) SUHAS ARCOS ([id number]) 1965 F Date Time Provider Department 09/12/23 3:15 PM JULISSA JOHNSON [facility] During your visit today, we recorded the following information about you: Temperature Pulse Respiration Blood pressure 97.5 degrees 61/minute 18/minute 138/82 Weight 63.4 kg Julissa Johnson PA 09/12/2023 4:05 PM Signed This note was created using [employer]. Subjective Suhas Arcos is a 58 year old female. HPI 50-year-old female presents for cough, congestion, body aches. Patient states that she was here 2 weeks ago and she thought she was diagnosed with COVID. Per chart review, it appears she was influenza positive and negative for COVID. She was out of the treatment window at that point. She states that for the past 2 weeks, she has had continued nasal congestion, sinus headache, sinus pressure and dry cough. She states she has coughing fits at nighttime. She is not coughing anything up. She has not had any fevers. She does have body aches and is fatigued. She denies any vomiting or diarrhea. No other complaints. PAST MEDICAL HISTORY Diagnosis Date Dyspepsia and other specified disorders of function of stomach Essential hypertension, benign Hyperlipidemia PAST SURGICAL HISTORY Procedure Laterality Date DELIVERY ONLY , low cervical COLONOSCOPY FLX DX W/COLLJ SPEC WHEN PFRMD 08/31/2011 Colonoscopy/repeat in EGD TRANSORAL BIOPSY SINGLE/MULTIPLE 10/04/10 ESOPHAGOGASTRODUODENOS COPY TRANSORAL DIAGNOSTIC 08/31/2011 EGD ALLERGIES Sulfa (Sulfonamide Antibiotics) MEDICATIONS atenolol (TENORMIN) 25 mg tablet Take 1 tablet by mouth once daily. loratadine (ALLERGY RELIEF, LORATADINE,) 10 mg tablet Take 1 tablet by mouth once daily. Cholecalciferol, Vitamin D3, 1,000 unit cap Take 1 capsule by mouth once daily. FAMILY HISTORY Problem Relation Age of Onset Cancer Mother throat Heart Brother mi Diabetes Brother Coronary Artery Disease Brother PA Social History Tobacco Use Smoking status: Never Smokeless tobacco: Never Substance Use Topics Alcohol use: No Drug use: No Review of Systems Constitutional: Positive for fatigue. Negative for chills and fever. HENT: Positive for congestion, sinus pressure and sinus pain. Negative for ear pain and sore throat. Respiratory: Positive for cough. Negative for shortness of breath. Cardiovascular: Negative for chest pain. Gastrointestinal: Negative for diarrhea and vomiting. Musculoskeletal: Positive for myalgias. Objective BP 138/82 Pulse 61 Temp 36.4 ?C (97.5 ?F) (Tympanic) Resp 18 Wt 63.4 kg (139 lb 12.8 oz) LMP 04/26/2017 SpO2 99% BMI 28.24 kg/m? Physical Exam Vitals and nursing note reviewed. Constitutional: General: She is not in acute distress. Appearance: Normal appearance. She is not toxic-appearing. HENT: Right Ear: Tympanic membrane and ear canal normal. Left Ear: Tympanic membrane and ear canal normal. Nose: Mucosal edema present. Right Sinus: Frontal sinus tenderness present. Left Sinus: Frontal sinus tenderness present. Mouth/Throat: Mouth: Mucous membranes are moist. Pharynx: No oropharyngeal exudate or posterior oropharyngeal erythema. Eyes: Conjunctiva/sclera: Conjunctivae normal. Cardiovascular: Rate and Rhythm: Normal rate and regular rhythm. Pulmonary: Effort: Pulmonary effort is normal. Breath sounds: Normal breath sounds. Neurological: Mental Status: She is alert. Assessment and Plan ASSESSMENT/PLAN: 1. Acute cough - ICD9: 786.2, ICD10: R05.1 (primary diagnosis) - XR CHEST 2V FRONTAL/LAT -CXR is normal. No acute abnormality. -Likely cough is lingering from influenza. No signs of pneumonia on exam. 2. Bacterial sinusitis - ICD9: 473.9, 041.9, ICD10: J32.9, B96.89 -Positive flu 2 weeks ago. Continued congestion and sinus pressure. Possibly secondary bacterial sinus infection. Will treat with Augmentin. - Will begin treatment with Augmentin 875 mg PO BID for 5 days - Supportive care with plenty of fluids, rest, and analgesia prn. Diagnosis and treatment plan were discussed and questions were answered to the patient's satisfaction. Pt acknowledged understanding of concepts and follow up plan. Specific signs and symptoms that would indicate the need for higher level of care were discussed in detail warranting prompt ER evaluation. PRINCE Colón Allergies As of Date: 09/12/2023 Noted Allergy Reaction SULFA (SULFONAMIDE ANTIBIOTICS) 10/19/2006 Comments: itching, rash Date Reviewed: 09/12/2023 Reviewed by: Argelia Machuca LPN - Fully Assessed Reason for Visit: Cough [28] Cmt: Cough and bodyaches-positive COVID 2 weeks ago Primary Visit Diagnosis:Acute cough [R05.1] Other Visit Diagnosis:Bacterial sinusitis [J32.9, B96.89] Order(s):XR CHEST 2V FRONTAL/LAT [[id number] (more content not included)... Normal [facility] XR CHEST 2V FRONTAL/LATon XR CHEST 2V FRONTAL/LAT * * *Final Report* * * DATE OF EXAM: Sep 12 2023 3:47PM WOX [id number] - XR CHEST 2V FRONTAL/LAT / PROCEDURE REASON: Acute cough * * * * Physician Interpretation * * * * EXAMINATION: CHEST RADIOGRAPH (2 VIEW FRONTAL and LATERAL) CLINICAL HISTORY: Acute cough MQ: XC2_6 EXAM DATE/TIME: 09/12/2023 3:47 PM COMPARISON: No relevant prior studies available. RESULT: Lines, tubes, and devices: None. Lungs and pleura: No consolidation. No lung mass. No pleural effusion. No pneumothorax. Cardiomediastinal silhouette: Normal cardiomediastinal silhouette. Bones and soft tissues: There are mild degenerative changes in the spine. IMPRESSION: No acute radiographic abnormality. Compo Caster: [facility] Transcribe Date/Time: Sep 12 2023 3:49P Dictated by : JESSICA HU MD This examination was interpreted and the report reviewed and electronically signed by: JESSICA HU MD on Sep 12 2023 3:49PM EST [id number] Normal [facility] XR Chest PA and Lateralon IMPRESSION: No acute radiographic abnormality. Compo Caster: [facility] Transcribe Date/Time: Sep 12 2023 3:49P Dictated by : JESSICA HU MD This examination was interpreted and the report reviewed and electronically signed by: JESSICA HU MD on Sep 12 2023 3:49PM EST DIVISION OF RADIOLOGY * * *Final Report* * * DATE OF EXAM: Sep 12 2023 3:47PM WOX [id number] - XR CHEST 2V FRONTAL/LAT / PROCEDURE REASON: Acute cough * * * * Physician Interpretation * * * * EXAMINATION: CHEST RADIOGRAPH (2 VIEW FRONTAL & LATERAL) CLINICAL HISTORY: Acute cough MQ: XC2_6 EXAM DATE/TIME: 09/12/2023 3:47 PM COMPARISON: No relevant prior studies available. RESULT: Lines, tubes, and devices: None. Lungs and pleura: No consolidation. No lung mass. No pleural effusion. No pneumothorax. Cardiomediastinal silhouette: Normal cardiomediastinal silhouette. Bones and soft tissues: There are mild degenerative changes in the spine. DIVISION OF RADIOLOGY Provider, [facility] - 09/12/2023 * * *Final Report* * * DATE OF EXAM: Sep 12 2023 3:47PM WOX 5291 - XR CHEST 2V FRONTAL/LAT / PROCEDURE REASON: Acute cough * * * * Physician Interpretation * * * * EXAMINATION: CHEST RADIOGRAPH (2 VIEW FRONTAL & LATERAL) CLINICAL HISTORY: Acute cough MQ: XC2_6 EXAM DATE/TIME: 09/12/2023 3:47 PM COMPARISON: No relevant prior studies available. RESULT: Lines, tubes, and devices: None. Lungs and pleura: No consolidation. No lung mass. No pleural effusion. No pneumothorax. Cardiomediastinal silhouette: Normal cardiomediastinal silhouette. Bones and soft tissues: There are mild degenerative changes in the spine. IMPRESSION IMPRESSION: No acute radiographic abnormality. Compo Caster: [facility] Transcribe Date/Time: Sep 12 2023 3:49P Dictated by : JESSICA HU MD This examination was interpreted and the report reviewed and electronically signed by: JESSICA HU MD on Sep 12 2023 3:49PM EST [facility] Radiology Study observation (narrative) [facility] XR Chest PA and LateralOrder ed By: [facility] Provider on 09-12-2023 [facility] Nidhi 08-28-2023 [facility] SU[facility] ([id number]) 1965 F Date Time Provider Department 08/28/23 WEN MUNIZ [facility] During your visit today, we recorded the following information about you: Wen Muniz APRN.NEUROPATHOLOGIST 08/28/2023 7:38 AM Signed Please notify that patient was positive for flu. Past treatment window. Usually contagious for 5-7 days. Return to work when 24 hours fever free. Elizabeth Mccormack 08/28/2023 8:29 AM Signed Left message for patient to return call. Lizzeth Hankins RN 08/28/2023 9:41 AM Signed Patient calls and notified of results and providers instructions. Patient verbalizes understanding. Lizzeth Jackson RN Allergies As of Date: 08/28/2023 Noted Allergy Reaction SULFA (SULFONAMIDE ANTIBIOTICS) 10/19/2006 Comments: itching, rash Date Reviewed: 08/27/2023 Reviewed by: Rut Watkins MA - Fully Assessed Reason for Visit: Results [95] Prescriptions as of 08/28/2023 - atenolol (TENORMIN) 25 mg tablet Take 1 tablet by mouth once daily. - loratadine (ALLERGY RELIEF, LORATADINE,) 10 mg tablet Take 1 tablet by mouth once daily. - Cholecalciferol, Vitamin D3, 1,000 unit cap Take 1 capsule by mouth once daily. Problem List As Of Date 08/28/2023 Noted Resolved INSOMNIA NOS [G47.00] 07/04/2007 Anxiety state, unspecified [F41.1] 07/04/2007 06/28/2016 Headache(784.0) [R51] 07/04/2007 06/28/2016 Essential hypertension [I10] 07/04/2007 Major depressive disorder, recurrent episode (H*08/19/2007 CHOLELITHIASIS NOS [K80.20] 07/13/2008 Acute gastritis without mention of hemorrhage [*10/04/2010 Dyspepsia and other specified disorders of func*10/04/2010 11/16/2015 ASCUS on Pap smear [[id number]] 08/23/2011 Blood in stool [K92.1] 08/31/2011 03/24/2014 Anemia, unspecified [D64.9] 08/31/2011 06/28/2016 Iron deficiency anemia [D50.9] 09/28/2011 Neck pain [M54.2] 01/23/2013 06/28/2016 Cervicalgia [M54.2] 11/06/2013 Adjustment disorder with mixed anxiety and depr*12/29/2013 Psychic factors associated with diseases classi*12/29/2013 Sciatica [M54.30] 02/23/2015 Tension-type headache, not intractable [G44.209]01/27/2016 Abnormal mammogram [R92.8] 07/06/2017 Encounter Status:Closed by LIZZETH JACKSON on 08/28/23 [facility] CNOVon 08-27-2023 CNOV Office Visit (WSTR ) SUHAS ARCOS ([id number]) 1965 F Date Time Provider Department 08/27/23 12:15 PM JULIAN MIGUEL [facility] During your visit today, we recorded the following information about you: Temperature Pulse Respiration Blood pressure 97.6 degrees 79/minute 18/minute 151/78 Weight 64.8 kg Julian Miguel MD 08/27/2023 12:43 PM Signed Patient presents with: Head Congestion: Cough, L ear pain, ST, runny nose x4 days HPI: Feeling sick for 4 days. Positive symptoms: Cough, Sore throat, Earache, Nasal Congestion, Rhinorrhea, Feverish, Chills, Body Aches, Malaise, Fatigue, Headache, Negative symptoms: Shortness of breath, Vomiting, Diarrhea, OTC: Dayquil, Lozenges, Tylenol PAST MEDICAL HISTORY Diagnosis Date Dyspepsia and other specified disorders of function of stomach Essential hypertension, benign MEDICATIONS: Current Outpatient Medications Medication Sig atenolol (TENORMIN) 25 mg tablet Take 1 tablet by mouth once daily. loratadine (ALLERGY RELIEF, LORATADINE,) 10 mg tablet Take 1 tablet by mouth once daily. Cholecalciferol, Vitamin D3, 1,000 unit cap Take 1 capsule by mouth once daily. No current facility-administered medications for this visit. ALLERGIES: ALLERGIES Allergen Reactions Sulfa (Sulfonamide * itching, rash VITALS: BP 151/78 Pulse 79 Temp 36.4 ?C (97.6 ?F) Resp 18 Wt 64.8 kg (142 lb 12.8 oz) LMP 04/26/2017 SpO2 97% BMI 28.84 kg/m? PHYSICAL EXAM: GEN: mildly ill appearing HEENT: PERRL, EOMI, conjunctiva clear Ears: canals clear. TMs without erythema, bulge, or effusion Sinuses: non-tender frontal sinus, non-tender maxillary sinuses Throat: moist mucous membranes, mild erythema, no exudate Neck: supple, no thyromegaly, no lymphadenopathy HEART: regular rate and rhythm, no murmurs LUNGS: clear to auscultation, no wheezes or crackles, no increased [facility] 11/16/22: EST GFR - AA 104 mL/min ASSESSMENT/PLAN: 1. URI, acute - ICD9: 465.9, ICD10: J06.9 - suspect viral URI, differential includes COVID-19. - Discussed supportive care treatment with rest, cold medicine, and analgesia. - Red flags to seek further treatment include chest pain, shortness of breath, and lethargy; in the ER if severe. - COVID AND INFLUENZA A/B NAAT, ROUTINE - We will call in [place] if positive. Julian Miguel MD Allergies As of Date: 08/27/2023 Noted Allergy Reaction SULFA (SULFONAMIDE ANTIBIOTICS) 10/19/2006 Comments: itching, rash Date Reviewed: 08/27/2023 Reviewed by: Rut Watkins MA - Fully Assessed Reason for Visit: Head Congestion [234] Cmt: Cough, L ear pain, ST, runny nose x4 days Primary Visit Diagnosis:URI, acute [J06.9] Order(s):COVID AND INFLUENZA A/B NAAT, ROUTINE [SQCOVFLU] Order #: [id number] FUTURE COVID AND INFLUENZA A/B NAAT, ROUTINE [SQCOVFLU] Order #: [id number]. #:[id number] Prescriptions as of 08/27/2023 - atenolol (TENORMIN) 25 mg tablet Take 1 tablet by mouth once daily. - loratadine (ALLERGY RELIEF, LORATADINE,) 10 mg tablet Take 1 tablet by mouth once daily. - Cholecalciferol, Vitamin D3, 1,000 unit cap Take 1 capsule by mouth once daily. Problem List As Of Date 08/27/2023 Noted Resolved INSOMNIA NOS [G47.00] 07/04/2007 Anxiety state, unspecified [F41.1] 07/04/2007 06/28/2016 Headache(784.0) [R51] 07/04/2007 06/28/2016 Essential hypertension [I10] 07/04/2007 Major depressive disorder, recurrent episode (H*08/19/2007 CHOLELITHIASIS NOS [K80.20] 07/13/2008 Acute gastritis without mention of hemorrhage [*10/04/2010 Dyspepsia and other specified disorders of func*10/04/2010 11/16/2015 ASCUS on Pap smear [[id number]] 08/23/2011 Blood in stool [K92.1] 08/31/2011 03/24/2014 Anemia, unspecified [D64.9] 08/31/2011 06/28/2016 Iron deficiency anemia [D50.9] 09/28/2011 Neck pain [M54.2] 01/23/2013 06/28/2016 Cervicalgia [M54.2] 11/06/2013 Adjustment disorder with mixed anxiety and depr*12/29/2013 Psychic factors associated with diseases classi*12/29/2013 Sciatica [M54.30] 02/23/2015 Tension-type headache, not intractable [G44.209]01/27/2016 Abnormal mammogram [R92.8] 07/06/2017 Medications Discontinued During This Encounter Prescriptions - triamcinolone (KENALOG) 0.025 % cream (Discontinued) Apply 1 application to affected area twice daily. - trolamine salicylate (ASPERCREME) 10 % cream (Discontinued) Apply to affected area as needed. - acetaminophen (TYLENOL ARTHRITIS PAIN) 650 mg CR tablet (Discontinued) Take 1 tablet by mouth every 8 hours as needed. - ibuprofen (MOTRIN) 600 mg tablet (Discontinued) Take 1 tablet by mouth every 6 hours as needed for pain. - naproxen (NAPROSYN) 500 mg tablet (Discontinued) Take 1 tablet by mouth twice daily as needed (for pain/inflammation). Take with food. - escitalopram oxalate (LEXAPRO) 20 mg tablet (Discontinued) Reported on 11/14 (more content not included)... Normal [facility] FLUABV + SARS-CoV-2 Pnl Resp LILIBETH+prbon 08-27-2023 Influenza virus A and B RNA and SARS-CoV-2 (COVID-19) N gene panel LILIBETH+probe (Resp) COVID 19 RESULT: Not detected The method used is RT-PCR or an equivalent NAAT method. Reference Range (the expected result in uninfected individuals): Not detected INFLUENZA A PCR: Detected INFLUENZA B PCR: Not detected Abnormal [facility] Comment on above: Performed By: #### 9 [id number] ####[facility] LABCLIA [id number] [place] [address] [place] Vital Signs Date Time Vital Sign Value Performing Clinician Kristyn villagran 07-21-2024 09:05-0400 Body height 152.4 cm Nora Queden AUTOMATIC LINE SET UP MECHANIC.NEUROPATHOLOGIST Work Phone: [facility] 07-21-2024 09:05-0400 Body mass index (BMI) [Ratio] 26.76 kg/m2 Nora Queden AUTOMATIC LINE SET UP MECHANIC.NEUROPATHOLOGIST Work Phone: [facility] 07-21-2024 09:05-0400 Body temperature 98.4 [degF] Nora Queden AUTOMATIC LINE SET UP MECHANIC.NEUROPATHOLOGIST Work Phone: [facility] 07-21-2024 09:05-0400 Body weight 62.14 kg Nora Queden AUTOMATIC LINE SET UP MECHANIC.NEUROPATHOLOGIST Work Phone: [facility] 07-21-2024 09:05-0400 Diastolic blood pressure 60 mm[Hg] Nora Queden AUTOMATIC LINE SET UP MECHANIC.NEUROPATHOLOGIST Work Phone: [facility] 07-21-2024 09:05-0400 Heart rate 72 /min Nora Queden AUTOMATIC LINE SET UP MECHANIC.NEUROPATHOLOGIST Work Phone: [facility] 07-21-2024 09:05-0400 SaO2% (BldA) [Mass fraction] 98 % Nora Queden AUTOMATIC LINE SET UP MECHANIC.NEUROPATHOLOGIST Work Phone: [facility] 07-21-2024 09:05-0400 Systolic blood pressure 122 mm[Hg] Nora Queden AUTOMATIC LINE SET UP MECHANIC.NEUROPATHOLOGIST Work Phone: [facility] 03-29-2024 12:23-0400 Body mass index (BMI) [Ratio] 26.39 kg/m2 Julissa MORRISON Work Phone: [facility] 03-29-2024 12:23-0400 Body temperature 98.4 [degF] Krislyn Aberegg PA Work Phone: [facility] 03-29-2024 [id number] Body weight 61.3 kg Krislyn Aberegg PA Work Phone: [facility] 03-29-2024 12:23-0400 Diastolic blood pressure 93 mm[Hg] Krislyn Aberegg PA Work Phone: [facility] 03-29-2024 12:23-0400 Heart rate 75 /min Krislyn Aberegg PA Work Phone: [facility] 03-29-2024 [id number] Respiratory rate 18 /min Krislyn Aberegg PA Work Phone: [facility] 03-29-2024 12:23-0400 SaO2% (BldA) [Mass fraction] 100 % Krislyn Aberegg PA Work Phone: [facility] 03-29-2024 12:23-0400 Systolic blood pressure 154 mm[Hg] Krislyn Aberegg PA Work Phone: [facility] 02-21-2024 10:[id number] Body height 152.4 cm Nora Queden AUTOMATIC LINE SET UP MECHANIC.NEUROPATHOLOGIST Work Phone: [facility] 02-21-2024 10:290400 Body mass index (BMI) [Ratio] 26.95 kg/m2 Nora Queden AUTOMATIC LINE SET UP MECHANIC.NEUROPATHOLOGIST Work Phone: [facility] 02-21-2024 10:[id number] Body temperature 98.01 [degF] Nora Queden AUTOMATIC LINE SET UP MECHANIC.NEUROPATHOLOGIST Work Phone: [facility] 02-21-2024 10:[id number] Body weight 62.6 kg Nora Queden AUTOMATIC LINE SET UP MECHANIC.NEUROPATHOLOGIST Work Phone: [facility] 02-21-2024 10:29-0400 Diastolic blood pressure 70 mm[Hg] Nora Queden AUTOMATIC LINE SET UP MECHANIC.NEUROPATHOLOGIST Work Phone: [facility] 02-21-2024 10:29-0400 Heart rate 82 /min Nora Queden AUTOMATIC LINE SET UP MECHANIC.NEUROPATHOLOGIST Work Phone: [facility] 02-21-2024 10:29-0400 Respiratory rate 16 /min Nora Queden AUTOMATIC LINE SET UP MECHANIC.NEUROPATHOLOGIST Work Phone: [facility] 02-21-2024 10:29-0400 SaO2% (BldA) [Mass fraction] 98 % Nora Queden AUTOMATIC LINE SET UP MECHANIC.NEUROPATHOLOGIST Work Phone: [facility] 02-21-2024 10:29-0400 Systolic blood pressure 122 mm[Hg] Nora Queden AUTOMATIC LINE SET UP MECHANIC.NEUROPATHOLOGIST Work Phone: [facility] 02-05-2024 16:35-0400 Body mass index (BMI) [Ratio] 28.01 kg/m2 Krislyn Aberegg PA Work Phone: [facility] 02-05-2024 16:35-0400 Body temperature 97.2 [degF] Krislyn Aberegg PA Work Phone: [facility] 02-05-2024 16:35-0400 Body weight 62.9 kg Krislyn Aberegg PA Work Phone: [facility] 02-05-2024 16:35-0400 Diastolic blood pressure 76 mm[Hg] Krislyn Aberegg PA Work Phone: [facility] 02-05-2024 16:35-0400 Heart rate 79 /min Krislyn Aberegg PA Work Phone: [facility] 02-05-2024 16:35-0400 Respiratory rate 18 /min Krislyn Aberegg PA Work Phone: [facility] 02-05-2024 16:35-0400 SaO2% (BldA) [Mass fraction] 96 % Krislyn Aberegg PA Work Phone: [facility] 02-05-2024 16:35-0400 Systolic blood pressure 126 mm[Hg] Krislyn Aberegg PA Work Phone: [facility] 09-12-2023 15:26-0500 Body temperature 97.5 [degF] Krislyn Aberegg PA Work Phone: [facility] 09-12-2023 15:26-0500 Body weight 63.41 kg Krislyn Aberegg PA Work Phone: [facility] 09-12-2023 15:26-0500 Diastolic blood pressure 82 mm[Hg] Krislyn Aberegg PA Work Phone: [facility] 09-12-2023 15:26-0500 Heart rate 61 /min Krislyn Aberegg PA Work Phone: [facility] 09-12-2023 15:26-0500 Respiratory rate 18 /min Krislyn Aberegg PA Work Phone: [facility] 09-12-2023 15:26-0500 SaO2% (BldA) [Mass fraction] 99 % Krislyn Aberegg PA Work Phone: [facility] 09-12-2023 15:26-0500 Systolic blood pressure 138 mm[Hg] Krislyn Aberegg PA Work Phone: [facility] 08-27-2023 12:00-0500 Body temperature 97.59 [degF] Julian Miguel MD Work Phone: [facility] 08-27-2023 12:00-0500 Body weight 64.77 kg Julian Miguel MD Work Phone: [facility] 08-27-2023 12:00-0500 Diastolic blood pressure 78 mm[Hg] Julian Miguel MD Work Phone: [facility] 08-27-2023 12:00-0500 Heart rate 79 /min Julian Miguel MD Work Phone: [facility] 08-27-2023 12:00-0500 Respiratory rate 18 /min Julian Miguel MD Work Phone: [facility] 08-27-2023 12:00-0500 SaO2% (BldA) [Mass fraction] 97 % Julian Miguel MD Work Phone: [facility] 08-27-2023 12:00-0500 Systolic blood pressure 151 mm[Hg] Julian Miguel MD Work Phone: [facility] 02-23-2023 12:24-0400 Body temperature 97.81 [degF] Meera Praisler-Wood AUTOMATIC LINE SET UP MECHANIC.NEUROPATHOLOGIST Work Phone: [facility] 02-23-2023 12:24-0400 Body weight 62.69 kg Meera Praisler-Wood AUTOMATIC LINE SET UP MECHANIC.NEUROPATHOLOGIST Work Phone: [facility] 02-23-2023 12:24-0400 Diastolic blood pressure 80 mm[Hg] Meera Praisler-Wood AUTOMATIC LINE SET UP MECHANIC.NEUROPATHOLOGIST Work Phone: [facility] 02-23-2023 12:24-0400 Heart rate 67 /min Meera Praisler-Wood AUTOMATIC LINE SET UP MECHANIC.NEUROPATHOLOGIST Work Phone: [facility] 02-23-2023 12:24-0400 Respiratory rate 16 /min Meera Praisler-Wood AUTOMATIC LINE SET UP MECHANIC.NEUROPATHOLOGIST Work Phone: [facility] 02-23-2023 12:24-0400 SaO2% (BldA) [Mass fraction] 99 % Meera Praisler-Wood AUTOMATIC LINE SET UP MECHANIC.NEUROPATHOLOGIST Work Phone: [facility] 02-23-2023 12:24-0400 Systolic blood pressure 122 mm[Hg] Meera Praisler-Wood AUTOMATIC LINE SET UP MECHANIC.NEUROPATHOLOGIST Work Phone: [facility] 11-14-2022 17:10-0500 Body temperature 96.91 [degF] Meera Praisler-Wood AUTOMATIC LINE SET UP MECHANIC.NEUROPATHOLOGIST Work Phone: [facility] 11-14-2022 17:10-0500 Body weight 63.32 kg Meera Praisler-Wood AUTOMATIC LINE SET UP MECHANIC.NEUROPATHOLOGIST Work Phone: [facility] 11-14-2022 17:10-0500 Diastolic blood pressure 88 mm[Hg] Meera Praisler-Wood AUTOMATIC LINE SET UP MECHANIC.NEUROPATHOLOGIST Work Phone: [facility] 11-14-2022 17:10-0500 Heart rate 76 /min Meera Praisler-Wood AUTOMATIC LINE SET UP MECHANIC.NEUROPATHOLOGIST Work Phone: [facility] 11-14-2022 17:10-0500 Respiratory rate 16 /min Meera Praisler-Wood AUTOMATIC LINE SET UP MECHANIC.NEUROPATHOLOGIST Work Phone: [facility] 11-14-2022 17:10-0500 SaO2% (BldA) [Mass fraction] 97 % Meera Praisler-Wood AUTOMATIC LINE SET UP MECHANIC.NEUROPATHOLOGIST Work Phone: [facility] 11-14-2022 17:10-0500 Systolic blood pressure 138 mm[Hg] Meera Praisler-Wood AUTOMATIC LINE SET UP MECHANIC.NEUROPATHOLOGIST Work Phone: [facility] Encounters Encounter Date Encounter Type Care Provider Facility Start: 07-21-2024 End: 07-21-2024 Patient encounter procedure Nora Mccartney AUTOMATIC LINE SET UP MECHANIC.NEUROPATHOLOGIST Work Phone: [facility] Comment on above: Moderate episode of recurrent major depressive disorder (HCC) (Primary Dx); Essential hypertension; Chronic pain of left knee; Primary osteoarthritis of left knee; Vitamin D deficiency; Encounter for immunization; Colon cancer screening Start: 07-21-2024 End: 07-21-2024 ambulatory NORA MCCARTNEY Facility:[facility] Start: 07-09-2024 End: 07-09-2024 Refill Nora Mccartney APRN.NEUROPATHOLOGIST Work Phone: [facility] Comment on above: Refill Request Start: 06-24-2024 End: 06-24-2024 [address] MA [facility] Comment on above: ED OUTREACH (ED OUTR VIRAL/BRITANY /06/17/2024) Start: 05-30-2024 Telephone encounter Nora Mccartney APRN.NEUROPATHOLOGIST Work Phone: [facility] Comment on above: Lab Orders Start: 04-01-2024 ambulatory Beatrice Ewing [facility] Start: 03-30-2024 ambulatory Lata Mensahb [employer] BUSINESS PARTNER NURSE O N CALL Comment on above: Return Provider Call Start: 03-30-2024 Telephone encounter Julissa MORRISON Work Phone: [facility] [address] [facility] Comment on above: Results Start: 03-29-2024 End: 03-29-2024 ambulatory NORA MCCARTNEY Facility:[facility] Start: 03-29-2024 End: 03-29-2024 Patient encounter procedure Julissa MORRISON Work Phone: [facility] Comment on above: Viral illness (Prima ry Dx) Start: 02-27-2024 Telephone encounter Nora Mccartney AUTOMATIC LINE SET UP MECHANIC.NEUROPATHOLOGIST Work Phone: [facility] Comment on above: Results Start: 02-22-2024 End: 02-22-2024 ambulatory NORA MCCARTNEY Facility:[facility] Start: 02-22-2024 Encounter for genera l adult medical examination without abnormal findings CAILIN STEELE [facility] Start: 02-21-2024 End: 02-21-2024 Patient encounter procedure Nora Mccartney AUTOMATIC LINE SET UP MECHANIC.NEUROPATHOLOGIST Work Phone: [facility] Comment on above: Well adult exam (Lenka chayito Dx); Essential hypertension; Mild episode of recurrent major depressive disorder (HCC); Vitamin D deficiency; Fatigue, unspecified type; History of iron deficiency; Screening for lipid disorders; Screening for thyroid disorder; Screening for colon cancer; Encounter for screening mammogram for breast cancer Start: 02-21-2024 End: 02-21-2024 Patient encounter status Nora Mccartney AUTOMATIC LINE SET UP MECHANIC.NEUROPATHOLOGIST Work Phone: [facility] Work Phone: Start: 02-21-2024 End: 02-21-2024 ambulatory NORA MCCARTNEY Facility:[facility] Start: 02-21-2024 Encounter for genera l adult medical examination without abnormal findings NORA MCCARTNEY [facility] Start: 02-18-2024 End: 02-18-2024 ambulatory CAILIN STEELE Facility:[facility] Start: 02-18-2024 End: 02-18-2024 Patient encounter procedure Rosalio Alfaro MD Work Phone: [facility] Comment on above: Blurred vision, bila teral (Primary Dx); Refractive error; Pseudophakia; Dry eye syndrome, bilateral Start: 02-05-2024 End: 02-05-2024 [facility] Facility:[facility] Start: 02-05-2024 End: 02-05-2024 Patient encounter procedure Julissa MORRISON Work Phone: [facility] Comment on above: Bacterial sinusitis (Primary Dx); Fatigue, unspecified type Start: 09-12-2023 End: 09-12-2023 Subsequent hospital visit by physician [facility] Work Phone: Radiology Comment on above: Acute cough [R05.1] Start: 09-12-2023 End: 09-12-2023 ambulatory [facility] Facility:[facility] Start: 09-12-2023 End: 09-12-2023 Patient encounter procedure Julissa Johnson PA Work Phone: [facility] Comment on above: Acute cough (Primary Dx); Bacterial sinusitis Start: 08-28-2023 Telephone encounter Wen calderón APRN.NEUROPATHOLOGIST Work Phone: [facility] Comment on above: Results Start: 08-27-2023 End: 08-27-2023 ambulatory [facility] Facility:[facility] Start: 08-27-2023 End: 08-27-2023 Patient encounter procedure Julian Miguel MD Work Phone: [facility] Comment on above: URI, acute (Primary Dx) Start: 02-23-2023 End: 02-23-2023 Patient encounter procedure Meera Pa APRN.NEUROPATHOLOGIST Work Phone: [facility] Comment on above: Rash (Primary Dx) Start: 11-14-2022 End: 11-14-2022 Patient encounter procedure Meera Pa APRN.NEUROPATHOLOGIST Work Phone: [facility] Comment on above: Arthritis pain (Prim malathi Dx); Essential hypertension Procedures Date Procedure Procedure Detail Performing Clinician Start: 02-22-2024 Lipid 1996 panel - S maverick or Plasma Nora Mccartney APRN.NEUROPATHOLOGIST Work Phone: Start: 09-12-2023 Radiologic exam ches t 2 views Julissa MORRISON Work Phone: Start: 06-29-2017 Mammography Meera Mendez APRN.NEUROPATHOLOGIST Work Phone: Start: 05-02-2016 Lipid 1996 panel - S maverick or Plasma Julian Miguel MD Work Phone: Start: 09-04-2011 Colonoscopy Meera Mendez APRN.NEUROPATHOLOGIST Work Phone: Plan of Treatment Date Care Activity Detail Author Start: 04-01-2030 Urine microalbumin profile DTaP,Tdap,Td Vaccine (3 - Td or Tdap) [facility] Start: 02-21-2029 Lipid panel Lipid Screening [facility] Start: 02-21-2027 Diabetes Screening Diabetes Screenin g [facility] Start: 07-21-2025 Annual PCP Team 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 Equipment Painter zeke Disease Visit Annual PCP Team Chronic Disease Visit [facility] Start: 07-21-2025 Anxiety Screening Anxiety Screening [facility] Comment on above: Postponed from 06/22 (Declined at this time) Start: 07-21-2025 BP Controlled (<130/80) BP Controlle d (<130/80) [facility] Start: 07-21-2025 Covid-19 Vaccine () Covid-19 Vaccine () [facility] Comment on above: Postponed from 06/15 (Declined at this time) Start: 02-20-2025 Annual PCP Team 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 Equipment Painter zeke Disease Visit Annual PCP Team Chronic Disease Visit [facility] Start: 02-20-2025 BP Controlled (<130/80) BP Controlle d (<130/80) [facility] Start: 02-20-2025 Covid-19 Vaccine (4 - 2023-24 season) Covid-19 Vaccine () [facility] Comment on above: Postponed from 06/15 (Declined at this time) Start: 02-20-2025 HIV screening HIV Screening [facility] Comment on above: Postponed from 06/22 (Declined at this time) Start: 02-04-2025 BP Controlled (<130/80) BP Controlle d (<130/80) [facility] Start: 08-25-2024 End: 08-25-2024 Patient encounter procedure 08/25/2024 10:40 AM EST Office Visit [facility] [address] [place] [address] Nora Mccartney APRN.NEUROPATHOLOGIST [address] [place] [address] 6 MTH F/U HYPERLIPIDEMIA AND HTN [facility] Comment on above: 6 MTH F/U HYPERLIPID EMIA AND HTN Start: 07-21-2024 End: 07-21-2024 Patient encounter procedure 07/21/2024 9:20 AM EDT Office Visit [facility] [address] [place] [address] Nora Mccartney APRN.NEUROPATHOLOGIST [address] [place] [address] [facility] Comment on above: med refill Start: 06-15-2024 Covid-19 Vaccine ( season) Covid-19 Vaccine () [facility] Start: 06-15-2024 Covid-19 Vaccine ( season) Covid-19 Vaccine () [facility] [facility] Start: 06-15-2024 Influenza vaccination C [facility] Start: 03-29-2024 End: 04-12-2024 COVID & INFLUENZA A/B & RSV NAAT, ROUTINE COVID & INFLUENZA A/B & RSV NAAT, ROUTINE Microbiology Routine Viral illness Expected: 03/29/2024, Expires: 04/12/2024 [facility] Work Phone: Comment on above: Expected: 03/29/2024 , Expires: 04/12/2024 Start: 02-21-2024 End: 05-22-2024 25-hydroxyvitamin D3 [Mass/volume] in Serum or Plasma VITAMIN D 25 HYDROXY Lab Routine Well adult exam Fatigue, unspecified type Vitamin D deficiency Expected: 02/21/2024, Expires: 05/22/2024 [facility] Comment on above: Expected: 02/21/2024 , Expires: 05/22/2024 Start: 02-21-2024 End: 05-22-2024 CBC W Auto Differential panel - Blood COMPLETE BLOOD COUNT AND DIFFERENTIAL Lab Routine Well adult exam History of iron deficiency Fatigue, unspecified type Expected: 02/21/2024, Expires: 05/22/2024 [facility] Comment on above: Expected: 02/21/2024 , Expires: 05/22/2024 Start: 02-21-2024 End: 05-22-2024 Comprehensive metabolic 2000 panel - Serum or Plasma COMPREHENSIVE METABOLIC PANEL Lab Routine Well adult exam Expected: 02/21/2024, Expires: 05/22/2024 [facility] Comment on above: Expected: 02/21/2024 , Expires: 05/22/2024 Start: 02-21-2024 End: 05-22-2024 Hemoglobin A1c in Blood HEMOGLOBIN A1C Lab Routine Well adult exam Expected: 02/21/2024, Expires: 05/22/2024 [facility] Comment on above: Expected: 02/21/2024 , Expires: 05/22/2024 Start: 02-21-2024 End: 05-22-2024 Lipid 1996 panel - Serum or Plasma LIPID PANEL BASIC Lab Routine Well adult exam Screening for lipid disorders Expected: 02/21/2024, Expires: 05/22/2024 [facility] Work Phone: Comment on above: Expected: 02/21/2024 , Expires: 05/22/2024 Start: 02-21-2024 End: 05-22-2024 Thyrotropin [Units/volume] in Serum or Plasma THYROID STIMULATING HORMONE Lab Routine Well adult exam Screening for thyroid disorder Expected: 02/21/2024, Expires: 05/22/2024 [facility] Comment on above: Expected: 02/21/2024 , Expires: 05/22/2024 Start: 02-21-2024 End: 02-21-2024 Patient encounter procedure 02/21/2024 10:40 AM EDT Office Visit [facility] [address] [place] [address] Nora Mccartney, AUTOMATIC LINE SET UP MECHANIC.NEUROPATHOLOGIST [address] [place] [address] [facility] Comment on above: new pt Start: 08-27-2023 End: 09-10-2023 Influenza virus A and B RNA and SARS-CoV-2 (COVID-19) N gene panel - Respiratory specimen by LILIBETH with probe detection [facility] Work Phone: Comment on above: Expected: 08/27/2023 , Expires: 09/10/2023 Start: 06-15-2023 Covid-19 Vaccine ( season) Covid-19 Vaccine ( season) [facility] Start: 06-15-2023 Influenza vaccination C [facility] Start: 06-15-2022 Influenza vaccination INFLUENZA (#1) [facility] Start: 06-12-2022 Urine microalbumin profile DTAP,TDAP,TD (2 - Td or Tdap) [facility] Start: 11-14-2021 COVID-19 VACCINE (4 - Booster for Pfizer series) COVID-19 VACCINE (4 - Booster for Pfizer series) [facility] Start: 09-04-2021 Colonoscopy COLONOSCOPY [facility] Start: 09-04-2021 COLORECTAL CANCER SCREENING COLORECTAL CANCER SCREENING [facility] Start: 09-04-2021 Screening for malign ant neoplasm of colon [facility] Start: 05-02-2021 Lipid 1996 panel - S maverick or Plasma Lipid Screening [facility] Start: 05-02-2021 Lipid panel Lipid Screening [facility] Start: 05-02-2021 LIPID SCREEN LIPID SCREEN [facility] Start: 05-02-2019 DIABET[facility]CREEN [facility] Start: 05-02-2019 Diabetes Screening Diabetes Screenin g [facility] Start: 02-19-2019 ANNUAL PCP TEAM PROMOTIONAL REPRESENTATIVE ZEKE DISEASE VISIT ANNUAL PCP TEAM CHRONIC DISEASE VISIT [facility] Start: 06-29-2018 Mammography [facility] Start: 06-29-2018 Screening for malign ant neoplasm of breast Mammogram Screening [facility] Start: 11-11-2017 PAP TESTING PAP TESTING [facility] Start: 11-11-2017 Screening for malign ant neoplasm of cervix [facility] Start: 08-08-2016 HPV TESTING HPV TESTING [facility] Start: 08-08-2016 Screening for malign ant neoplasm of cervix HPV Testing [facility] Start: 2015 SHINGRIX VACCINE (1 of 2) SHINGRIX VACCINE (1 of 2) [facility] Start: 06-20-2013 FECAL OCCULT BLOOD FECAL OCCULT BLOO D [facility] Start: 06-20-2013 Screening for malign ant neoplasm of colon Fecal Occult Blood [facility] Start: 2010 COLOGUARD (FIT-DNA) COLOGUARD (FIT-D NA) [facility] Start: [address] COLONOGRAPHY [facility] Start: 2010 Screening for malign ant neoplasm of colon [facility] Start: 2010 SIGMOIDOSCOPY SIGMOIDOSCOPY [facility] Start: 1984 Hepatitis B Vaccine (1 of 3 - 19+ 3-dose series) Hepatitis B Vaccine (1 of 3 - 19+ 3-dose series) [facility] Start: 1983 ANNUAL PCP TEAM PROMOTIONAL REPRESENTATIVE ZEKE DISEASE VISIT ANNUAL PCP TEAM CHRONIC DISEASE VISIT [facility] Start: 1983 Anxiety Screening Anxiety Screening [facility] Start: 1983 BP CONTROLLED (<130/80) BP CONTROLLE D (<130/80) [facility] Start: 1983 HIV SCREENING HIV SCREENING [facility] Start: 1983 HIV screening HIV Screening [facility] Start: 1965 HEPATITIS B (1 of 3 - 3-dose series) HEPATITIS B (1 of 3 - 3-dose series) [facility] Start: 1965 Hepatitis B Vaccine (1 of 3 - 3-dose series) Hepatitis B Vaccine (1 of 3 - 3-dose series) [facility] Im adm prq id subq/i m njxs 1 vaccine IMADM PRQ ID SUBQ/IM NJXS 1 VACC Immunization/Injection Routine Encounter for immunization Ordered: 07/21/2024 [facility] Work Phone: Comment on above: Ordered: 07/21/2024 End: 03-22-2025 MG Breast Screening DOUG SCREENING Radiology Routine Encounter for screening mammogram for breast cancer 1 Occurrences starting 02/21/2024 until 03/22/2025 [facility] Comment on above: 1 Occurrences starti ng 02/21/2024 until 03/22/2025 Immunizations Immunization Date Immunization Notes Care Provider Elo fuentes 07-21-2024 influenza, seasonal, injectable Nora Queden AUTOMATIC LINE SET UP MECHANIC.NEUROPATHOLOGIST Work Phone: [facility] 09-19-2021 COVID-19 original vaccine, full dose, monovalent (MODERNA) Nora Queden AUTOMATIC LINE SET UP MECHANIC.NEUROPATHOLOGIST Work Phone: [facility] 09-19-2021 influenza, injectabl e, quadrivalent, preservative free Nora Queden AUTOMATIC LINE SET UP MECHANIC.NEUROPATHOLOGIST Work Phone: [facility] 09-19-2021 influenza virus vaccine, unspecified formulation Julian Miguel MD Work Phone: [facility] 2020 influenza, injectabl e, quadrivalent, contains preservative Nora Queden AUTOMATIC LINE SET UP MECHANIC.NEUROPATHOLOGIST Work Phone: [facility] 04-01-2020 tetanus toxoid, redu yanet diphtheria toxoid, and acellular pertussis vaccine, adsorbed Nora Queden AUTOMATIC LINE SET UP MECHANIC.NEUROPATHOLOGIST Work Phone: [facility] 06-10-2019 influenza, injectabl e, quadrivalent, contains preservative Nora Queden AUTOMATIC LINE SET UP MECHANIC.NEUROPATHOLOGIST Work Phone: [facility] 07-17-2018 zoster vaccine recombinant Nora Queden AUTOMATIC LINE SET UP MECHANIC.NEUROPATHOLOGIST Work Phone: [facility] 07-11-2018 influenza, injectabl e, quadrivalent, preservative free Nora Queden AUTOMATIC LINE SET UP MECHANIC.NEUROPATHOLOGIST Work Phone: [facility] 05-21-2018 zoster vaccine recombinant Nora Queden AUTOMATIC LINE SET UP MECHANIC.NEUROPATHOLOGIST Work Phone: [facility] 07-07-2016 influenza, injectabl e, quadrivalent, contains preservative Meera Praisler-Wood AUTOMATIC LINE SET UP MECHANIC.[facility] Work Phone: [facility] 08-17-2014 influenza, seasonal, injectable Meera Praisler-Wood AUTOMATIC LINE SET UP MECHANIC.NEUROPATHOLOGIST Work Phone: [facility] 09-26-2013 influenza virus vaccine, unspecified formulation Meera Praisler-Wood AUTOMATIC LINE SET UP MECHANIC.NEUROPATHOLOGIST Work Phone: [facility] 06-12-2012 tetanus toxoid, redu yanet diphtheria toxoid, and acellular pertussis vaccine, adsorbed Meera Praisler-Wood AUTOMATIC LINE SET UP MECHANIC.[facility] Work Phone: [facility] Work Phone: 10-18-2011 influenza virus vaccine, unspecified formulation Meera Praisler-Wood AUTOMATIC LINE SET UP MECHANIC.[facility] Work Phone: [facility] 10-27-2010 influenza virus vaccine, unspecified formulation Meera Praisler-Wood AUTOMATIC LINE SET UP MECHANIC.[facility] Work Phone: [facility] Payers Date Payer Category Payer Medicaid [id number] 2017 Medicaid [id number] Social History Date Type Detail [facility] Work Phone: Start: 11-14-2022 End: 07-21-2024 Alcohol intake Current non-drinker of alcohol (finding) [facility] Start: 1965 Sex Assigned At Not on file C [facility] Start: 08-27-2023 End: 07-21-2024 History of Social function [facility] Start: 08-27-2023 End: 07-21-2024 Tobacco use panel [facility] Adult Depression Screening Assessment 2 [facility] Clinical Notes 01-23-2013 to 07-21-2024 Chayito Norris MA - 07/21/2024 9:38 AM EDChayito Leung MA - 07/21/2024 9:38 AM EDTPatient InstructionsNora Mcacrtney APRN.CNP - 07/21/2024 9:12 AM EDTChayito Norris MA - 06/24/2024 8:31 AM EDT Note Date & Type Note [facility] 07-21-2024 Nurse Note Pt. Given regular dose flu with no complaints. Vis given. Chayito Norris MA [facility] 07-21-2024 Nurse Note Pt. Given regular dose flu with no complaints. Vis given. Chayito Norris MA documented in this encounter [facility] 07-21-2024 Instructions Nora Mccartney APRN.CNP - 07/21/2024 9:26 AM EDT Emilie Negro PA-C Orthopaedic Surgery [facility] [address] [place] [address] Appointment:[phone] documented in this encounter [facility] 07-21-2024 Note HNO ID: [id number] Author: NORA MCCARTNEY APRN.CNP Service: ? Author Type: Nurse Practitioner Type: Progress Notes Filed: 07/21/2024 10:35 Note Text: CHIEF COMPLAINT: Suhas Arcos is a 59 year old female who presents for follow up for depression and medication refills. I reviewed past medical, surgical, social, and family histories today and updated chart. Allergies, chronic medications, and supplements were also reviewed. Doing well on current dose of Prozac. She would like to continue this. She is due for colon cancer screening. She still needs to complete her mammogram. Fell in June at home after she missed a step and fell on her left leg/knee. XR showed severe arthrosis of the medial femorotibial compartment. CT knee showed a 7 mm ossified loose body in the intercondylar notch Takes Motrin and Tylenol prn, takes four Motrin in the morning and 2 Motrin in the evening. Wears a brace Ices and uses heat prn Her daughter has to help her bathe and get up from the toilet due to pain and weakness in her knee STUDY: X-RAY - LEFT KNEE REASON FOR EXAM: Female, 58 years old. Injury/pain. TECHNIQUE: 4 views of the left knee. COMPARISON: Left knee radiographs dated 08/28/2022. FINDINGS: Normal visualized distal femur. Normal visualized proximal tibia and fibula. Normal proximal tibiofibular articulation. There is no demonstrated fracture. There is persistent moderate to severe degenerative arthrosis of the medial femorotibial compartment with moderate to severe joint space narrowing and marginal osteophyte formation. There is persistent mild degenerative arthrosis of the lateral femorotibial compartment. There is persistent mild degenerative arthrosis of the patellofemoral articulation. The soft tissue structures are unremarkable. STUDY: CT LEFT KNEE WITHOUT CONTRAST REASON FOR EXAM: Female, 58 years old. Knee trauma. RADIATION DOSAGE (If Supplied By Facility): CTDIvol = ( 15.35 ) mGy, DLP = ( 434.36 ) mGycm TECHNIQUE: Transaxial CT imaging of the left knee was performed. Coronal and sagittal images were reformatted. Individualized dose optimization techniques were used for this CT. COMPARISON: Left knee radiographs dated 06/17/2024. ___ FINDINGS: There is moderate degenerative arthrosis of the medial femorotibial compartment with joint space narrowing, marginal osteophyte formation, and subchondral sclerosis. There is mild degenerative arthrosis of the lateral femorotibial compartment with mild marginal osteophyte formation. There is mild degenerative arthrosis of the patellofemoral compartment with mild marginal osteophyte formation. Normal proximal tibiofibular articulation. There is a small joint effusion. There is a 7 mm ossified loose body in the intercondylar notch (coronal reformat series 602 images 25-27). The quadriceps tendon is grossly normal. The patellar tendon is grossly normal. Normal Hoffa''s fat pad. The soft tissues are unremarkable. OV 02/21/24: She doesn't check her BP regularly at home. Denies any symptoms associated with HTN including chest pain, dizziness, palpitations, SOB. Drinks some tea Good with drinking water Doesn't add any salt Cooks at home primarily Doesn't exercise regularly Colonoscopy with Dr. Yusuf in 2010. It was normal and she is due for recheck. Mammogram in 2018- needed biopsy of right breast but it was normal. She is due for a screening mammogram. She is also due for routine labs. PAST MEDICAL HISTORY Diagnosis Date Dyspepsia and other specified disorders of function of stomach Essential hypertension, benign PAST SURGICAL HISTORY Procedure Laterality Date DELIVERY ONLY , low cervical COLONOSCOPY FLX DX W/COLLJ SPEC WHEN PFRMD 08/31/2011 Colonoscopy/repeat in EGD TRANSORAL BIOPSY SINGLE/MULTIPLE 10/04/10 ESOPHAGOGASTRODUODENOSCOPY TRANSORAL DIAGNOSTIC 08/31/2011 EGD Social History Tobacco Use Smoking status: Never Smokeless tobacco: Never Substance Use Topics Alcohol use: No Drug use: No ALLERGIES Allergen Reactions Sulfa (Sulfonamide * itching, rash Family History Problem Relation Age of Onset Cancer Mother throat Heart Brother PA Diabetes Brother Coronary Artery Disease Brother PA Current Outpatient Medications Medication Sig Dispense Refill FLUoxetine (PROZAC) 20 mg capsule Take 1 capsule by mouth once daily. Take 1 capsule by mouth once daily 90 capsule 1 loratadine (ALLERGY RELIEF, LORATADINE,) 10 mg tablet Take 1 tablet by mouth once daily. 30 tablet 2 atenolol (TENORMIN) 25 mg tablet Take 1 tablet by mouth once daily. 90 tablet 1 Cholecalciferol, Vitamin D3, 25 mcg (1,000 unit) cap Take 1 capsule by mouth once daily. 90 capsule 1 No current facility-administered medications for this visit. Review of Systems Constitutional: Negative for appetite change, fatigue and unexpected (more content not included)... [facility] 07-21-2024 History of Presen t illness Narrative CHIEF COMPLAINT: Suhas Arcos is a 59 year old female who presents for follow up for depression and medication refills. I reviewed past medical, surgical, social, and family histories today and updated chart. Allergies, chronic medications, and supplements were also reviewed. Doing well on current dose of Prozac. She would like to continue this. She is due for colon cancer screening. She still needs to complete her mammogram. Fell in June at home after she missed a step and fell on her left leg/knee. XR showed severe arthrosis of the medial femorotibial compartment. CT knee showed a 7 mm ossified loose body in the intercondylar notch Takes Motrin and Tylenol prn, takes four Motrin in the morning and 2 Motrin in the evening. Wears a brace Ices and uses heat prn Her daughter has to help her bathe and get up from the toilet due to pain and weakness in her knee STUDY: X-RAY - LEFT KNEE REASON FOR EXAM: Female, 58 years old. Injury/pain. TECHNIQUE: 4 views of the left knee. COMPARISON: Left knee radiographs dated 08/28/2022. FINDINGS: Normal visualized distal femur. Normal visualized proximal tibia and fibula. Normal proximal tibiofibular articulation. There is no demonstrated fracture. There is persistent moderate to severe degenerative arthrosis of the medial femorotibial compartment with moderate to severe joint space narrowing and marginal osteophyte formation. There is persistent mild degenerative arthrosis of the lateral femorotibial compartment. There is persistent mild degenerative arthrosis of the patellofemoral articulation. The soft tissue structures are unremarkable. STUDY: CT LEFT KNEE WITHOUT CONTRAST REASON FOR EXAM: Female, 58 years old. Knee trauma. RADIATION DOSAGE (If Supplied By Facility): CTDIvol = ( 15.35 ) mGy, DLP = ( 434.36 ) mGycm TECHNIQUE: Transaxial CT imaging of the left knee was performed. Coronal and sagittal images were reformatted. Individualized dose optimization techniques were used for this CT. COMPARISON: Left knee radiographs dated 06/17/2024. ___ FINDINGS: There is moderate degenerative arthrosis of the medial femorotibial compartment with joint space narrowing, marginal osteophyte formation, and subchondral sclerosis. There is mild degenerative arthrosis of the lateral femorotibial compartment with mild marginal osteophyte formation. There is mild degenerative arthrosis of the patellofemoral compartment with mild marginal osteophyte formation. Normal proximal tibiofibular articulation. There is a small joint effusion. There is a 7 mm ossified loose body in the intercondylar notch (coronal reformat series 602 images 25-27). The quadriceps tendon is grossly normal. The patellar tendon is grossly normal. Normal Hoffa''s fat pad. The soft tissues are unremarkable. OV 02/21/24: She doesn't check her BP regularly at home. Denies any symptoms associated with HTN including chest pain, dizziness, palpitations, SOB. Drinks some tea Good with drinking water Doesn't add any salt Cooks at home primarily Doesn't exercise regularly Colonoscopy with Dr. Yusuf in 2010. It was normal and she is due for recheck. Mammogram in 2018- needed biopsy of right breast but it was normal. She is due for a screening mammogram. She is also due for routine labs. PAST MEDICAL HISTORY Diagnosis Date Dyspepsia and other specified disorders of function of stomach Essential hypertension, benign PAST SURGICAL HISTORY Procedure Laterality Date DELIVERY ONLY , low cervical COLONOSCOPY FLX DX W/COLLJ SPEC WHEN PFRMD 08/31/2011 Colonoscopy/repeat in EGD TRANSORAL BIOPSY SINGLE/MULTIPLE 10/04/10 ESOPHAGOGASTRODUODENOSCOPY TRANSORAL DIAGNOSTIC 08/31/2011 EGD Social History Tobacco Use Smoking status: Never Smokeless tobacco: Never Substance Use Topics Alcohol use: No Drug use: No ALLERGIES Allergen Reactions Sulfa (Sulfonamide * itching, rash Family History Problem Relation Age of Onset Cancer Mother throat Heart Brother PA Diabetes Brother Coronary Artery Disease Brother PA Current Outpatient Medications Medication Sig Dispense Refill FLUoxetine (PROZAC) 20 mg capsule Take 1 capsule by mouth once daily. Take 1 capsule by mouth once daily 90 capsule 1 loratadine (ALLERGY RELIEF, LORATADINE,) 10 mg tablet Take 1 tablet by mouth once daily. 30 tablet 2 atenolol (TENORMIN) 25 mg tablet Take 1 tablet by mouth once daily. 90 tablet 1 Cholecalciferol, Vitamin D3, 25 mcg (1,000 unit) cap Take 1 capsule by mouth once daily. 90 capsule 1 No current facility-administered medications for this visit. Review of Systems Constitutional: Negative for appetite change, fatigue and unexpected weight change. HENT: Negative for dental problem, hearing loss, tinnitus and trouble swallowing. Eyes: Negative for visual disturbance. Respiratory: Negative for apnea, cough and shortness of breath. Cardiovascular: Negative for chest pain, palpitations and leg swelling. Gastrointestinal: Negative for abdominal distention, abdominal pain, blood in stool, constipation, diarrhea, nausea and vomiting. Genitourinary: Negative for frequency, hematuria, menstrual problem and urgency. Musculoskeletal: Positive for arthralgias and gait problem. Negative for back pain, joint swelling, myalgias and neck pain. Skin: Negative. Allergic/Immunologic: Negative for environmental allergies. Neurological: Positive for weakness. Negative for dizziness, light-headedness, numbness and headaches. Hematological: Does not bruise/bleed easily. Psychiatric/Behavioral: Negative for dysphoric mood and sleep disturbance. The patient is not nervous/anxious. BP 122/60 Pulse 72 Temp 98.4 Ht 5' 0 (1.52m) Wt 137 lb (62.1kg) SpO2 98% LMP 04/26/2017 BMI 26.76 kg/(m^2). Physical Exam Vitals and nursing note reviewed. Constitutional: Appearance: Normal appearance. HENT: Mouth/Throat: Mouth: Mucous membranes are moist. Eyes: Pupils: Pupils are equal, round, and reactive to light. Cardiovascular: Rate and Rhythm: Normal rate and regular rhythm. Heart sounds: Normal heart sounds. Pulmonary: Effort: Pulmonary effort is normal. Breath sounds: Normal breath sounds. Musculoskeletal: Left knee: Crepitus present. No swelling, erythema or ecchymosis. Tenderness present over the medial joint line. Normal alignment. Comments: Wearing knee brace Skin: General: Skin is warm and dry. Neurological: Mental Status: She is alert and oriented to person, place, and time. Psychiatric: Mood and Affect: Mood normal. Behavior: Behavior normal. Cognition and Memory: Cognition normal. Latest Ref [facility] 02/22/2024 WBC 3.70 - 11.00 k/uL 9.07 RBC 3.90 - 5.20 m/uL 4.49 Hemoglobin 11.5 - 15.5 g/dL 12.4 Hematocrit 36.0 - 46.0 % 39.6 MCV 80.0 - 100.0 fL 88.2 MCH 26.0 - 34.0 pg 27.6 MCHC 30.5 - 36.0 g/dL 31.3 RDW-CV 11.5 - 15.0 % 13.3 Platelet Count 150 - 400 k/uL 418 (H) MPV 9.0 - 12.7 fL 9.6 Neut% % 42.8 Abs Neut (ANC) 1.45 - 7.50 k/uL 3.88 Lymph% % 43.7 Abs Lymph 1.00 - 4.00 k/uL 3.96 [place]% % 7.5 Abs [place] <0.87 k/uL 0.68 Eosin% % 4.7 Abs Eosin <0.46 k/uL 0.43 Baso% % 0.9 Abs Baso <0.11 k/uL 0.08 Immature Gran % % 0.4 IMMATURE GRANS (ABS) <0.10 k/uL 0.04 NRBC /100 WBC 0.0 Absolute nRBC <0.01 k/uL <0.01 DTYPE Auto Protein, Total 6.3 - 8.0 g/dL 7.0 Albumin 3.9 - 4.9 g/dL 4.1 Calcium 8.5 - 10.2 mg/dL 9.7 Bilirubin, Total 0.2 - 1.3 mg/dL 0.3 Alkaline Phosphatase 34 - 123 U/L 81 AST 13 - 35 U/L 30 ALT 7 - 38 U/L 22 Glucose 74 - 99 mg/dL 84 BUN 7 - 21 mg/dL 13 Creatinine 0.58 - 0.96 mg/dL 0.73 Sodium 136 - 144 mmol/L 138 Potassium 3.7 - 5.1 mmol/L 4.6 Chloride 97 - 105 mmol/L 103 CO2 22 - 30 mmol/L 24 Anion Gap 9 - 18 mmol/L 11 eGFR >=60 mL/min/1.73m 95 Cholesterol, Total <200 mg/dL 209 (H) Triglyceride <150 mg/dL 184 (H) HDL Cholesterol >39 mg/dL 38 (L) Non HDL Cholesterol <130 mg/dL 171 (H) Fasting Time hrs 12 VLDL Cholesterol <30 mg/dL 37 (H) TC:HDL Ratio <5.10 5.50 (H) LDL Cholesterol <100 mg/dL 134 (H) LDL:HDL Ratio <2.54 3.53 (H) Hemoglobin A1C 4.3 - 5.6 % 5.7 (H) Estimated Average Glucose mg/dL 117 Vitamin D 25 Hydroxy 31.0 - 80.0 ng/mL 40.2 TSH 0.270 - 4.200 mIU/L 2.930 Legend: (H) High (L) Low ASSESSMENT/PLAN: 1. Moderate episode of recurrent major depressive disorder (HCC) - ICD9: 296.32, ICD10: F33.1 (primary diagnosis) - Doing well on Prozac 20 mg daily. Continue to monitor. 2. Essential hypertension - ICD9: 401.9, ICD10: I10 - Controlled - Continue current medications - Recommend home blood pressure monitoring, to bring results to next visit - Encouraged sodium restriction, DASH or Mediterranean diet - Recommend regular aerobic exercise - Follow up in 6 months or sooner if needed for hypertension visit - ATENOLOL 25 MG TABLET 3. Chronic pain of left knee - ICD9: 719.46, 338.29, ICD10: M25.562, G89.29 - Recommend ortho consult. Will also refer to PT. 4. Primary osteoarthritis of left knee - ICD9: 715.16, ICD10: M17.12 - CONSULT TO ORTHOPAEDIC SURGERY 5. Vitamin D deficiency - ICD9: 268.9, ICD10: E55.9 - CHOLECALCIFEROL (VITAMIN D3) 25 MCG (1,000 UNIT) CAPSULE 6. Encounter for immunization - ICD9: V03.89, ICD10: Z23 Patient counseled on and acknowledged vaccine benefits/risks/side effects; VIS provided: Influenza. - INFLUENZA VACCINE, AGE 6MO-64YR, TRIVALENT (AFLURIA, FLULAVAL, FLUVIRIN, FLUZONE) - IMADM PRQ ID SUBQ/IM NJXS 1 VACC 7. Colon cancer screening - ICD9: V76.51, ICD10: Z12.11 - CONSULT TO GENERAL SURGERY New medication(s) prescribed today: None. Counseling completed in adopting health behaviors such as avoiding excessive alcohol use, avoid tobacco use, improve nutrition, and engage in physical activities. Copy of written care plan, clinical summary, treatment plan, new medications, goals, and self management requirements were given to patient. Nora Mccartney APRN.CNP documented in this encounter [facility] 07-09-2024 Telephone encounter Note Patient requesting refills as follows: Last Office Visit 02/21/24 NOV 07/21/24. Last Refill 02/21/24. Requested Prescriptions Pending Prescriptions Disp Refills atenolol (TENORMIN) 25 mg tablet 90 tablet 1 Sig: Take 1 tablet by mouth once daily. Cholecalciferol, Vitamin D3, 25 mcg (1,000 unit) cap 90 capsule 1 Sig: Take 1 capsule by mouth once daily. FLUoxetine (PROZAC) 20 mg capsule 90 capsule 1 Sig: Take 1 capsule by mouth once daily. Take 1 capsule by mouth once daily Please review and advise. Melissa Hernandez MA [facility] 07-09-2024 Miscellaneous Notes Patient requesting refills as follows: Last Office Visit 02/21/24 NOV 07/21/24. Last Refill 02/21/24. Requested Prescriptions Pending Prescriptions Disp Refills atenolol (TENORMIN) 25 mg tablet 90 tablet 1 Sig: Take 1 tablet by mouth once daily. Cholecalciferol, Vitamin D3, 25 mcg (1,000 unit) cap 90 capsule 1 Sig: Take 1 capsule by mouth once daily. FLUoxetine (PROZAC) 20 mg capsule 90 capsule 1 Sig: Take 1 capsule by mouth once daily. Take 1 capsule by mouth once daily Please review and advise. Melissa Hernandez MA documented in this encounter [facility] 06-24-2024 Note HNO ID: [id number] Author: CHAYITO NORRIS MA Service: ? Author Type: Inorganic Chemical Technician Type: Progress Notes Filed: 06/24/2024 08:32 Note Text: ED Follow Up: Patient discharged from [facility] ED on 06/17/2024. 1. How are you feeling since your ED visit? NA Have your symptoms improved or resolved? Not applicable 2. Were you prescribed any medications while in the ED or advised to stop any medication? Not applicable - If yes, were you able to fill your prescriptions? Not applicable -if stopped medication, what was the medication? NA 3. Were you advised to schedule a follow up appointment with your provider? Not applicable - If no, Do you feel like you need an appointment scheduled? Not applicable - If yes, Do you need this scheduled now or has this already been scheduled? Not applicable 4. Were you able to contact the office or automation control integrator provider prior to your ED visit? Not applicable 5. Is there anything else I can do for you today? Not applicable LM ON PT. VM TO CONTACT OFFICE IF SHE NEEDS ANYTHING OR WOULD LIKE A ER FOLLOW UP. Chayito Norris MA [facility] 06-24-2024 History of Presen t illness Narrative ED Follow Up: Patient discharged from [facility] ED on 06/17/2024. 1. How are you feeling since your ED visit? NA Have your symptoms improved or resolved? Not applicable 2. Were you prescribed any medications while in the ED or advised to stop any medication? Not applicable - If yes, were you able to fill your prescriptions? Not applicable -if stopped medication, what was the medication? NA 3. Were you advised to schedule a follow up appointment with your provider? Not applicable - If no, Do you feel like you need an appointment scheduled? Not applicable - If yes, Do you need this scheduled now or has this already been scheduled? Not applicable 4. Were you able to contact the office or automation control integrator provider prior to your ED visit? Not applicable 5. Is there anything else I can do for you today? Not applicable LM ON PT. VM TO CONTACT OFFICE IF SHE NEEDS ANYTHING OR WOULD LIKE A ER FOLLOW UP. Chayito Norris MA documented in this encounter [facility] 06-24-2024 Note Patient Outreach (AMANDA FAMMATILDA) SUHAS ARCOS ([id number]) 1965 F Date Time Provider Department 06/24/24 CHAYITO NORRIS During your visit today, we recorded the following information about you: Chayito Norris MA 06/24/2024 8:32 AM Signed ED Follow Up: Patient discharged from [facility] ED on 06/17/2024. 1. How are you feeling since your ED visit? NA Have your symptoms improved or resolved? Not applicable 2. Were you prescribed any medications while in the ED or advised to stop any medication? Not applicable - If yes, were you able to fill your prescriptions? Not applicable -if stopped medication, what was the medication? NA 3. Were you advised to schedule a follow up appointment with your provider? Not applicable - If no, Do you feel like you need an appointment scheduled? Not applicable - If yes, Do you need this scheduled now or has this already been scheduled? Not applicable 4. Were you able to contact the office or automation control integrator provider prior to your ED visit? Not applicable 5. Is there anything else I can do for you today? Not applicable LM ON PT. VM TO CONTACT OFFICE IF SHE NEEDS ANYTHING OR WOULD LIKE A ER FOLLOW UP. Chayito Norris MA Allergies As of Date: 06/24/2024 Noted Allergy Reaction SULFA (SULFONAMIDE ANTIBIOTICS) 10/19/2006 Comments: itching, rash Date Reviewed: 03/29/2024 Reviewed by: Rut Watkins MA - Fully Assessed Reason for Visit: ED OUTREACH [Other] Cmt: ED OUTREACH BRYANT 06/17/2024 Prescriptions as of 06/24/2024 - atenolol (TENORMIN) 25 mg tablet Take 1 tablet by mouth once daily. - Cholecalciferol, Vitamin D3, 25 mcg (1,000 unit) cap Take 1 capsule by mouth once daily. - FLUoxetine (PROZAC) 20 mg capsule Take 1 capsule by mouth once daily. Take 1 capsule by mouth once daily - loratadine (ALLERGY RELIEF, LORATADINE,) 10 mg tablet Take 1 tablet by mouth once daily. Problem List As Of Date 06/24/2024 Noted Resolved INSOMNIA NOS [G47.00] 07/04/2007 Anxiety state, unspecified [F41.1] 07/04/2007 06/28/2016 Headache(784.0) [R51] 07/04/2007 06/28/2016 Essential hypertension [I10] 07/04/2007 Major depressive disorder, recurrent episode (H*08/19/2007 CHOLELITHIASIS NOS [K80.20] 07/13/2008 Acute gastritis without mention of hemorrhage [*10/04/2010 Dyspepsia and other specified disorders of func*10/04/2010 11/16/2015 ASCUS on Pap smear [[id number]] 08/23/2011 Blood in stool [K92.1] 08/31/2011 03/24/2014 Anemia, unspecified [D64.9] 08/31/2011 06/28/2016 Iron deficiency anemia [D50.9] 09/28/2011 Neck pain [M54.2] 01/23/2013 06/28/2016 Cervicalgia [M54.2] 11/06/2013 Adjustment disorder with mixed anxiety and depr*12/29/2013 Psychic factors associated with diseases classi*12/29/2013 Sciatica [M54.30] 02/23/2015 Tension-type headache, not intractable [G44.209]01/27/2016 Abnormal mammogram [R92.8] 07/06/2017 Encounter Status:Closed by CHAYITO NORRIS on 06/24/24 [facility] 05-30-2024 Telephone encounter Note ----- Message from Melissa Hernandez MA sent at 02/28/2024 3:53 PM EDT ----- CBC- recheck in 3 months. [facility] 05-30-2024 Miscellaneous Notes ----- Message from Melissa Hernandez MA sent at 02/28/2024 3:53 PM EDT ----- CBC- recheck in 3 months. documented in this encounter [facility] 04-01-2024 Note HNO ID: [id number] Author: BEATRICE EWING LPN Service: ? Author Type: LICENSED NURSE Type: Progress Notes Filed: 04/01/2024 10:24 Note Text: ED Follow Up: Patient discharged from [facility] ED on 03/31/2024. 1. How are you feeling since your ED visit? Left message for pt to call office back. Have your symptoms improved or resolved? Left message for pt to call office back. 2. Were you prescribed any medications while in the ED or advised to stop any medication? Left message for pt to call office back. - If yes, were you able to fill your prescriptions? Left message for pt to call office back. -if stopped medication, what was the medication? Left message for pt to call office back. 3. Were you advised to schedule a follow up appointment with your provider? Left message for pt to call office back. - If no, Do you feel like you need an appointment scheduled? Left message for pt to call office back. - If yes, Do you need this scheduled now or has this already been scheduled? Left message for pt to call office back. 4. Were you able to contact the office or automation control integrator provider prior to your ED visit? Left message for pt to call office back. 5. Is there anything else I can do for you today? Left message for pt to call office back. [facility] 04-01-2024 History of Presen t illness Narrative ED Follow Up: Patient discharged from [facility] ED on 03/31/2024. 1. How are you feeling since your ED visit? Left message for pt to call office back. Have your symptoms improved or resolved? Left message for pt to call office back. 2. Were you prescribed any medications while in the ED or advised to stop any medication? Left message for pt to call office back. - If yes, were you able to fill your prescriptions? Left message for pt to call office back. -if stopped medication, what was the medication? Left message for pt to call office back. 3. Were you advised to schedule a follow up appointment with your provider? Left message for pt to call office back. - If no, Do you feel like you need an appointment scheduled? Left message for pt to call office back. - If yes, Do you need this scheduled now or has this already been scheduled? Left message for pt to call office back. 4. Were you able to contact the office or automation control integrator provider prior to your ED visit? Left message for pt to call office back. 5. Is there anything else I can do for you today? Left message for pt to call office back. documented in this encounter [facility] 04-01-2024 Note Patient Outreach (AG FAMPLE) SUHAS ARCOS ([id number]) 1965 F Date Time Provider Department 04/01/24 BEATRICE EWING During your visit today, we recorded the following information about you: Beatrice Ewing LPN 04/01/2024 10:24 AM Signed ED Follow Up: Patient discharged from [facility] ED on 03/31/2024. 1. How are you feeling since your ED visit? Left message for pt to call office back. Have your symptoms improved or resolved? Left message for pt to call office back. 2. Were you prescribed any medications while in the ED or advised to stop any medication? Left message for pt to call office back. - If yes, were you able to fill your prescriptions? Left message for pt to call office back. -if stopped medication, what was the medication? Left message for pt to call office back. 3. Were you advised to schedule a follow up appointment with your provider? Left message for pt to call office back. - If no, Do you feel like you need an appointment scheduled? Left message for pt to call office back. - If yes, Do you need this scheduled now or has this already been scheduled? Left message for pt to call office back. 4. Were you able to contact the office or automation control integrator provider prior to your ED visit? Left message for pt to call office back. 5. Is there anything else I can do for you today? Left message for pt to call office back. Allergies As of Date: 04/01/2024 Noted Allergy Reaction SULFA (SULFONAMIDE ANTIBIOTICS) 10/19/2006 Comments: itching, rash Date Reviewed: 03/29/2024 Reviewed by: Rut Watkins MA - Fully Assessed Prescriptions as of 04/01/2024 - atenolol (TENORMIN) 25 mg tablet Take 1 tablet by mouth once daily. - Cholecalciferol, Vitamin D3, 25 mcg (1,000 unit) cap Take 1 capsule by mouth once daily. - FLUoxetine (PROZAC) 20 mg capsule Take 1 capsule by mouth once daily. Take 1 capsule by mouth once daily - loratadine (ALLERGY RELIEF, LORATADINE,) 10 mg tablet Take 1 tablet by mouth once daily. Problem List As Of Date 04/01/2024 Noted Resolved INSOMNIA NOS [G47.00] 07/04/2007 Anxiety state, unspecified [F41.1] 07/04/2007 06/28/2016 Headache(784.0) [R51] 07/04/2007 06/28/2016 Essential hypertension [I10] 07/04/2007 Major depressive disorder, recurrent episode (H*08/19/2007 CHOLELITHIASIS NOS [K80.20] 07/13/2008 Acute gastritis without mention of hemorrhage [*10/04/2010 Dyspepsia and other specified disorders of func*10/04/2010 11/16/2015 ASCUS on Pap smear [EYH9899] 08/23/2011 Blood in stool [K92.1] 08/31/2011 03/24/2014 Anemia, unspecified [D64.9] 08/31/2011 06/28/2016 Iron deficiency anemia [D50.9] 09/28/2011 Neck pain [M54.2] 01/23/2013 06/28/2016 Cervicalgia [M54.2] 11/06/2013 Adjustment disorder with mixed anxiety and depr*12/29/2013 Psychic factors associated with diseases classi*12/29/2013 Sciatica [M54.30] 02/23/2015 Tension-type headache, not intractable [G44.209]01/27/2016 Abnormal mammogram [R92.8] 07/06/2017 Encounter Status:Closed by BEATRICE EWING on 04/01/24 [facility] 03-30-2024 Telephone encounter Note Spoke with patient, discussed OTC medications for WISE and bodyaches such as alternating Tylenol and ibuprofen. Suggested f/u appt with pcp to explore further testing for severe bodyaches and headaches, but to proceed to ER sooner if patient feels as though pain is too bad. Rut Watkins MA [facility] 03-30-2024 Miscellaneous Notes Spoke with patient, discussed OTC medications for WISE and bodyaches such as alternating Tylenol and ibuprofen. Suggested f/u appt with pcp to explore further testing for severe bodyaches and headaches, but to proceed to ER sooner if patient feels as though pain is too bad. Rut Watkins MA Patient's called back and was given the below information and then he asked about medication recommendations, the nurses were unavailable to take the call at the time of the call and patient's spouse requested they call back to clarify what she can/should take over the counter. Spouse stated ok to leave detailed message if there is no answer Yefri Vargas Left VM instructing patient to return call to receive results. Rut Watkins MA Negative for COVID flu RSV documented in this encounter [facility] 03-30-2024 Telephone encounter Note Patient's called back and was given the below information and then he asked about medication recommendations, the nurses were unavailable to take the call at the time of the call and patient's spouse requested they call back to clarify what she can/should take over the counter. Spouse stated ok to leave detailed message if there is no answer Yefri Rodriguez Pss [facility] 03-30-2024 Telephone encounter Note Patient friend calling regarding results. Conferenced to Yefri in [address] [employer] [facility] at phone number ([phone]) for assistance. Lata Friend LPN [facility] 03-30-2024 Miscellaneous Notes Patient friend calling regarding results. Conferenced to Yefri in [address] [employer] [facility] at phone number ([phone]) for assistance. Lata Friend LPN documented in this encounter [facility] 03-30-2024 Telephone encounter Note Left VM instructing patient to return call to receive results. Rut Watkins MA [facility] 03-30-2024 Telephone encounter Note Negative for COVID flu RSV [facility] 03-29-2024 Note HNO ID: [id number] Author: JULISSA JOHNSON PA Service: ? Author Type: Physician Home Care Consultant Type: Progress Notes Filed: 03/29/2024 12:35 Note Text: This note was created using [employer]. Subjective Suhas Arcos is a 58 year old female. HPI 58-year-old female presents for headache, body aches starting today. Patient states that she got up today and had a headache and bodyaches. No fevers or chills. No congestion, cough, sore throat. She denies any vision changes, numbness or weakness in the arms or legs. No urinary symptoms. No sick contacts that she is aware of. She took Aleve which seem to help somewhat with the headache. No other complaint. PAST MEDICAL HISTORY Diagnosis Date Dyspepsia and other specified disorders of function of stomach Essential hypertension, benign PAST SURGICAL HISTORY Procedure Laterality Date DELIVERY ONLY , low cervical COLONOSCOPY FLX DX W/COLLJ SPEC WHEN PFRMD 08/31/2011 Colonoscopy/repeat in EGD TRANSORAL BIOPSY SINGLE/MULTIPLE 10/04/10 ESOPHAGOGASTRODUODENOSCOPY TRANSORAL DIAGNOSTIC 08/31/2011 EGD ALLERGIES Sulfa (Sulfonamide Antibiotics) MEDICATIONS atenolol (TENORMIN) 25 mg tablet Take 1 tablet by mouth once daily. Cholecalciferol, Vitamin D3, 25 mcg (1,000 unit) cap Take 1 capsule by mouth once daily. FLUoxetine (PROZAC) 20 mg capsule Take 1 capsule by mouth once daily. Take 1 capsule by mouth once daily loratadine (ALLERGY RELIEF, LORATADINE,) 10 mg tablet Take 1 tablet by mouth once daily. FAMILY HISTORY Problem Relation Age of Onset Cancer Mother throat Heart Brother PA Diabetes Brother Coronary Artery Disease Brother PA Social History Tobacco Use Smoking status: Never Smokeless tobacco: Never Substance Use Topics Alcohol use: No Drug use: No Review of Systems Constitutional: Negative for chills and fever. HENT: Positive for sinus pressure. Negative for congestion, ear pain and sore throat. Respiratory: Negative for cough and shortness of breath. Cardiovascular: Negative for chest pain. Gastrointestinal: Negative for diarrhea and vomiting. Musculoskeletal: Positive for myalgias. Neurological: Positive for headaches. Objective BP 154/93 Pulse 75 Temp 36.9 ?C (98.4 ?F) Resp 18 Wt 61.3 kg (135 lb 2.3 oz) LMP 04/26/2017 SpO2 100% BMI 26.39 kg/m? Physical Exam Vitals and nursing note reviewed. Constitutional: General: She is not in acute distress. Appearance: Normal appearance. She is not toxic-appearing. HENT: Right Ear: Tympanic membrane and ear canal normal. Left Ear: Tympanic membrane and ear canal normal. Nose: Nose normal. Mouth/Throat: Mouth: Mucous membranes are moist. Pharynx: No oropharyngeal exudate or posterior oropharyngeal erythema. Eyes: Conjunctiva/sclera: Conjunctivae normal. Cardiovascular: Rate and Rhythm: Normal rate and regular rhythm. Pulmonary: Effort: Pulmonary effort is normal. Breath sounds: Normal breath sounds. No wheezing, rhonchi or rales. Abdominal: Tenderness: There is no right CVA tenderness or left CVA tenderness. Neurological: General: No focal deficit present. Mental Status: She is alert and oriented to person, place, and time. Motor: No weakness. Gait: Gait normal. Assessment and Plan ASSESSMENT/PLAN: 1. Viral illness - ICD9: 079.99, ICD10: B34.9 - Discussed viral etiology and rationale for treatment. - Symptomatic treatment with prn analgesia - Supportive care with fluids and rest - The patient may also use Tylenol and Motrin or Aleve as needed for body aches and headache. -If headache worsens, worsening of life, vision changes, go to ER. - COVID AND INFLUENZA A/B AND RSV NAAT, ROUTINE Diagnosis and treatment plan were discussed and questions were answered to the patient's satisfaction. Pt acknowledged understanding of concepts and follow up plan. Specific signs and symptoms that would indicate the need for higher level of care were discussed in detail warranting prompt ER evaluation. PRINCE Colón [facility] 03-29-2024 History of Presen t illness Narrative This note was created using [employer]. Subjective Suhas Arcos is a 58 year old female. HPI 58-year-old female presents for headache, body aches starting today. Patient states that she got up today and had a headache and bodyaches. No fevers or chills. No congestion, cough, sore throat. She denies any vision changes, numbness or weakness in the arms or legs. No urinary symptoms. No sick contacts that she is aware of. She took Aleve which seem to help somewhat with the headache. No other complaint. PAST MEDICAL HISTORY Diagnosis Date Dyspepsia and other specified disorders of function of stomach Essential hypertension, benign PAST SURGICAL HISTORY Procedure Laterality Date DELIVERY ONLY , low cervical COLONOSCOPY FLX DX W/COLLJ SPEC WHEN PFRMD 08/31/2011 Colonoscopy/repeat in EGD TRANSORAL BIOPSY SINGLE/MULTIPLE 10/04/10 ESOPHAGOGASTRODUODENOSCOPY TRANSORAL DIAGNOSTIC 08/31/2011 EGD ALLERGIES Sulfa (Sulfonamide Antibiotics) MEDICATIONS atenolol (TENORMIN) 25 mg tablet Take 1 tablet by mouth once daily. Cholecalciferol, Vitamin D3, 25 mcg (1,000 unit) cap Take 1 capsule by mouth once daily. FLUoxetine (PROZAC) 20 mg capsule Take 1 capsule by mouth once daily. Take 1 capsule by mouth once daily loratadine (ALLERGY RELIEF, LORATADINE,) 10 mg tablet Take 1 tablet by mouth once daily. FAMILY HISTORY Problem Relation Age of Onset Cancer Mother throat Heart Brother PA Diabetes Brother Coronary Artery Disease Brother PA Social History Tobacco Use Smoking status: Never Smokeless tobacco: Never Substance Use Topics Alcohol use: No Drug use: No Review of Systems Constitutional: Negative for chills and fever. HENT: Positive for sinus pressure. Negative for congestion, ear pain and sore throat. Respiratory: Negative for cough and shortness of breath. Cardiovascular: Negative for chest pain. Gastrointestinal: Negative for diarrhea and vomiting. Musculoskeletal: Positive for myalgias. Neurological: Positive for headaches. Objective BP 154/93 Pulse 75 Temp 36.9 C (98.4 F) Resp 18 Wt 61.3 kg (135 lb 2.3 oz) LMP 04/26/2017 SpO2 100% BMI 26.39 kg/m Physical Exam Vitals and nursing note reviewed. Constitutional: General: She is not in acute distress. Appearance: Normal appearance. She is not toxic-appearing. HENT: Right Ear: Tympanic membrane and ear canal normal. Left Ear: Tympanic membrane and ear canal normal. Nose: Nose normal. Mouth/Throat: Mouth: Mucous membranes are moist. Pharynx: No oropharyngeal exudate or posterior oropharyngeal erythema. Eyes: Conjunctiva/sclera: Conjunctivae normal. Cardiovascular: Rate and Rhythm: Normal rate and regular rhythm. Pulmonary: Effort: Pulmonary effort is normal. Breath sounds: Normal breath sounds. No wheezing, rhonchi or rales. Abdominal: Tenderness: There is no right CVA tenderness or left CVA tenderness. Neurological: General: No focal deficit present. Mental Status: She is alert and oriented to person, place, and time. Motor: No weakness. Gait: Gait normal. Assessment and Plan ASSESSMENT/PLAN: 1. Viral illness - ICD9: 079.99, ICD10: B34.9 - Discussed viral etiology and rationale for treatment. - Symptomatic treatment with prn analgesia - Supportive care with fluids and rest - The patient may also use Tylenol and Motrin or Aleve as needed for body aches and headache. -If headache worsens, worsening of life, vision changes, go to ER. - COVID & INFLUENZA A/B & RSV NAAT, ROUTINE Diagnosis and treatment plan were discussed and questions were answered to the patient's satisfaction. Pt acknowledged understanding of concepts and follow up plan. Specific signs and symptoms that would indicate the need for higher level of care were discussed in detail warranting prompt ER evaluation. PRINCE Colón documented in this encounter [facility] 03-29-2024 Instructions Julissa Johnson PA - 03/29/2024 12:31 PM EDT Rest, increase water intake Motrin or Tylenol as needed for fever or pain. Salt water gargles, chloraseptic spray or lozenges as needed for sore throat. Warm beverages, honey. Nasal saline spray as needed Cool mist humidifier at night A cold normally lasts 7-10 days. If your symptoms are lasting longer, develop fever, or worsening by that time instead of improving then return to clinic or follow up with PCP for re-evaluation. Tylenol (generic acetaminophen) 500 mg-2 tabs every 8 hrs. as needed for fever and aches Ibuprofen 600 mg (3-200mg tablets) every 6 hours -You may try Flonase to help with any congestion. documented in this encounter [facility] 02-28-2024 Telephone encounter Note Patient is informed reminder placed Melissa Hernandez MA [facility] 02-28-2024 Miscellaneous Notes Patient is informed reminder placed Melissa Hernadnez MA Please call the patient with results: TSH, vitamin D, and CMP were all WNL A1C is in prediabetic range- watch diet for sugar and carbs. Platelets are only slightly elevated on CBC- recheck in 3 months. Lipid panel shows elevated triglycerides, LDL, and total cholesterol. Recommend diet changes- limit red meats, increase fiber, limit saturated fats, sugar. Increase exercise at 150 minutes a week. documented in this encounter [facility] 02-27-2024 Telephone encounter Note Please call the patient with results: TSH, vitamin D, and CMP were all WNL A1C is in prediabetic range- watch diet for sugar and carbs. Platelets are only slightly elevated on CBC- recheck in 3 months. Lipid panel shows elevated triglycerides, LDL, and total cholesterol. Recommend diet changes- limit red meats, increase fiber, limit saturated fats, sugar. Increase exercise at 150 minutes a week. [facility] 02-21-2024 Instructions Nora Mccartney APRN.CNP - 02/21/2024 10:59 AM EDT [facility]- Call [phone] Laboratory (Appointment Recommended) Sunday: Closed Sunday: 7 a.m. - 5 p.m. Sunday: 7 a.m. - 5 p.m. Sunday: 7 a.m. - 5 p.m. : 7 a.m. - 5 p.m. Sunday: 7 a.m. - 5 p.m. Sunday: 7:30 a.m. - Noon [facility] Outpatient Lab Hours For your convenience, the outpatient laboratory is open during the following hours: Sunday- Sunday 7 a.m. - 4:30 p.m. Sunday: 8 a.m. - 11:45 a.m. The outpatient lab is closed on Sundays and . [facility] Radiology testing- call [place] [facility] at [phone] Fast for 10 hours. Water is ok. documented in this encounter [facility] 02-21-2024 Note HNO ID: [id number] Author: NORA MCCARTNEY APRN.NEUROPATHOLOGIST Service: ? Author Type: Nurse Practitioner Type: Progress Notes Filed: 02/21/2024 17:18 Note Text: [facility] Nora Mccartney APRN-NEUROPATHOLOGIST [address] [place] [address] Dept Dept. Visit Date: February 21, 2024 Ms.Jaswinder Arcos Date of : 1965 MRN/E #: [id number] Chief Complaint: Patient presents with: Establish Care History of Present Illness Suhas Arcos is a 58 year old female presents today as a new patient to establish care. I reviewed past medical, surgical, social, and family histories today and updated chart. Allergies, chronic medications, and supplements were also reviewed. PMH of HTN. She doesn't check her BP regularly at home. Denies any symptoms associated with HTN including chest pain, dizziness, palpitations, SOB. Drinks some tea Good with drinking water Doesn't add any salt Cooks at home primarily Doesn't exercise regularly Colonoscopy with Dr. Yusuf in 2010. It was normal and she is due for recheck. Mammogram in 2018- needed biopsy of right breast but it was normal. She is due for a screening mammogram. She is also due for routine labs. The history is provided by the patient. PAST MEDICAL HISTORY Diagnosis Date Dyspepsia and other specified disorders of function of stomach Essential hypertension, benign PAST SURGICAL HISTORY Procedure Laterality Date DELIVERY ONLY , low cervical COLONOSCOPY FLX DX W/COLLJ SPEC WHEN PFRMD 08/31/2011 Colonoscopy/repeat in EGD TRANSORAL BIOPSY SINGLE/MULTIPLE 10/04/10 ESOPHAGOGASTRODUODENOSCOPY TRANSORAL DIAGNOSTIC 08/31/2011 EGD Social History Tobacco Use Smoking status: Never Smokeless tobacco: Never Substance Use Topics Alcohol use: No Drug use: No Social History Social History Narrative Not on file Family History Reviewed Including Cardiac Diseases, Psychiatric Diseases, AND Substance Abuse Problem: Cancer Relation: Mother Age of Onset: (Not Specified) Comment: throat Problem: Heart Relation: Brother Age of Onset: (Not Specified) Comment: PA Problem: Diabetes Relation: Brother Age of Onset: (Not Specified) Problem: Coronary Artery Disease Relation: Brother Age of Onset: (Not Specified) Comment: PA ALLERGIES Allergen Reactions Sulfa (Sulfonamide * itching, rash Current Outpatient Medications Medication Sig loratadine (ALLERGY RELIEF, LORATADINE,) 10 mg tablet Take 1 tablet by mouth once daily. atenolol (TENORMIN) 25 mg tablet Take 1 tablet by mouth once daily. Cholecalciferol, Vitamin D3, 25 mcg (1,000 unit) cap Take 1 capsule by mouth once daily. FLUoxetine (PROZAC) 20 mg capsule Take 1 capsule by mouth once daily. Take 1 capsule by mouth once daily No current facility-administered medications for this visit. Review of Systems Review of Systems Constitutional: Negative for appetite change, fatigue and unexpected weight change. HENT: Negative for dental problem, hearing loss, tinnitus and trouble swallowing. Eyes: Negative for visual disturbance. Respiratory: Negative for apnea, cough and shortness of breath. Cardiovascular: Negative for chest pain, palpitations and leg swelling. Gastrointestinal: Negative for abdominal distention, abdominal pain, blood in stool, constipation, diarrhea, nausea and vomiting. Genitourinary: Negative for frequency, hematuria, menstrual problem and urgency. Musculoskeletal: Negative for arthralgias, back pain, joint swelling, myalgias and neck pain. Skin: Negative. Allergic/Immunologic: Negative for environmental allergies. Neurological: Negative for dizziness, weakness, light-headedness, numbness and headaches. Hematological: Does not bruise/bleed easily. Psychiatric/Behavioral: Negative for dysphoric mood and sleep disturbance. The patient is not nervous/anxious. Vital Signs BP 122/70 Pulse 82 Temp 98 Resp 16 Ht 5' 0 (1.52m) Wt 138 lb (62.6kg) SpO2 98% LMP 04/26/2017 BMI 26.95 kg/(m2). Physical Exam Vitals and nursing note reviewed. Constitutional: Appearance: Normal appearance. HENT: Head: Normocephalic. Right Ear: Tympanic membrane, ear canal and external ear normal. Left Ear: Tympanic membrane, ear canal and external ear normal. Nose: Nose normal. Mouth/Throat: Mouth: Mucous membranes are moist. Pharynx: Oropharynx is clear. Uvula midline. No posterior oropharyngeal erythema. Eyes: Pupils: Pupils are equal, round, and reactive to light. Cardiovascular: Rate and Rhythm: Normal rate and regular rhythm. Heart sounds: Normal heart sounds. Pulmonary: Effort: Pulmonary effort is normal. Breath sounds: Normal breath sounds and air entry. Musculoskeletal: Cervical back: Neck supple. Lymphadenopathy: Cervical: No cervical adenopathy. Skin: General: Skin is warm and dry. Neur (more content not included)... [facility] 02-21-2024 History of Presen t illness Narrative Images from the original note were not included. [facility] Nora Mccartney [employer] UP MECHANIC-NEUROPATHOLOGIST [address] [place] [address] Dept Dept. Visit Date: February 21, 2024 Ms.Jaswinder Arcos Date of : 1965 MRN/E #: [id number] Chief Complaint: Patient presents with: Establish Care History of Present Illness Suhas Arcos is a 58 year old female presents today as a new patient to establish care. I reviewed past medical, surgical, social, and family histories today and updated chart. Allergies, chronic medications, and supplements were also reviewed. PMH of HTN. She doesn't check her BP regularly at home. Denies any symptoms associated with HTN including chest pain, dizziness, palpitations, SOB. Drinks some tea Good with drinking water Doesn't add any salt Cooks at home primarily Doesn't exercise regularly Colonoscopy with Dr. Yusuf in 2010. It was normal and she is due for recheck. Mammogram in 2018- needed biopsy of right breast but it was normal. She is due for a screening mammogram. She is also due for routine labs. The history is provided by the patient. PAST MEDICAL HISTORY Diagnosis Date Dyspepsia and other specified disorders of function of stomach Essential hypertension, benign PAST SURGICAL HISTORY Procedure Laterality Date DELIVERY ONLY , low cervical COLONOSCOPY FLX DX W/COLLJ SPEC WHEN PFRMD 08/31/2011 Colonoscopy/repeat in EGD TRANSORAL BIOPSY SINGLE/MULTIPLE 10/04/10 ESOPHAGOGASTRODUODENOSCOPY TRANSORAL DIAGNOSTIC 08/31/2011 EGD Social History Tobacco Use Smoking status: Never Smokeless tobacco: Never Substance Use Topics Alcohol use: No Drug use: No Social History Social History Narrative Not on file Family History Reviewed Including Cardiac Diseases, Psychiatric Diseases, & Substance Abuse Problem: Cancer Relation: Mother Age of Onset: (Not Specified) Comment: throat Problem: Heart Relation: Brother Age of Onset: (Not Specified) Comment: PA Problem: Diabetes Relation: Brother Age of Onset: (Not Specified) Problem: Coronary Artery Disease Relation: Brother Age of Onset: (Not Specified) Comment: PA ALLERGIES Allergen Reactions Sulfa (Sulfonamide * itching, rash Current Outpatient Medications Medication Sig loratadine (ALLERGY RELIEF, LORATADINE,) 10 mg tablet Take 1 tablet by mouth once daily. atenolol (TENORMIN) 25 mg tablet Take 1 tablet by mouth once daily. Cholecalciferol, Vitamin D3, 25 mcg (1,000 unit) cap Take 1 capsule by mouth once daily. FLUoxetine (PROZAC) 20 mg capsule Take 1 capsule by mouth once daily. Take 1 capsule by mouth once daily No current facility-administered medications for this visit. Review of Systems Review of Systems Constitutional: Negative for appetite change, fatigue and unexpected weight change. HENT: Negative for dental problem, hearing loss, tinnitus and trouble swallowing. Eyes: Negative for visual disturbance. Respiratory: Negative for apnea, cough and shortness of breath. Cardiovascular: Negative for chest pain, palpitations and leg swelling. Gastrointestinal: Negative for abdominal distention, abdominal pain, blood in stool, constipation, diarrhea, nausea and vomiting. Genitourinary: Negative for frequency, hematuria, menstrual problem and urgency. Musculoskeletal: Negative for arthralgias, back pain, joint swelling, myalgias and neck pain. Skin: Negative. Allergic/Immunologic: Negative for environmental allergies. Neurological: Negative for dizziness, weakness, light-headedness, numbness and headaches. Hematological: Does not bruise/bleed easily. Psychiatric/Behavioral: Negative for dysphoric mood and sleep disturbance. The patient is not nervous/anxious. Vital Signs BP 122/70 Pulse 82 Temp 98 Resp 16 Ht 5' 0 (1.52m) Wt 138 lb (62.6kg) SpO2 98% LMP 04/26/2017 BMI 26.95 kg/(m^2). Physical Exam Vitals and nursing note reviewed. Constitutional: Appearance: Normal appearance. HENT: Head: Normocephalic. Right Ear: Tympanic membrane, ear canal and external ear normal. Left Ear: Tympanic membrane, ear canal and external ear normal. Nose: Nose normal. Mouth/Throat: Mouth: Mucous membranes are moist. Pharynx: Oropharynx is clear. Uvula midline. No posterior oropharyngeal erythema. Eyes: Pupils: Pupils are equal, round, and reactive to light. Cardiovascular: Rate and Rhythm: Normal rate and regular rhythm. Heart sounds: Normal heart sounds. Pulmonary: Effort: Pulmonary effort is normal. Breath sounds: Normal breath sounds and air entry. Musculoskeletal: Cervical back: Neck supple. Lymphadenopathy: Cervical: No cervical adenopathy. Skin: General: Skin is warm and dry. Neurological: Mental Status: She is alert and oriented to person, place, and time. Psychiatric: Mood and Affect: Mood normal. Behavior: Behavior normal. Cognition and Memory: Cognition normal. Visit Diagnoses (Z00.00) Well adult exam (primary encounter diagnosis) (I10) Essential hypertension (F33.0) Mild episode of recurrent major depressive disorder (HCC) (E55.9) Vitamin D deficiency (R53.83) Fatigue, unspecified type (Z86.39) History of iron deficiency (Z13.220) Screening for lipid disorders (Z13.29) Screening for thyroid disorder (Z12.11) Screening for colon cancer (Z12.31) Encounter for screening mammogram for breast cancer Assessment and Plan 1. Well adult exam - ICD9: V70.0, ICD10: Z00.00 (primary diagnosis) - Counseled on healthy diet and regular exercise - Discussed need and benefit for weight loss. BMI 26.95 kg/(m^2) - Colorectal cancer screening recommended - agrees to Colonoscopy - Mammogram ordered - exam recommended once yearly - Follow up for annual exam in one year - LIPID PANEL BASIC - COMPLETE BLOOD COUNT AND DIFFERENTIAL - COMPREHENSIVE METABOLIC PANEL - VITAMIN D 25 HYDROXY - THYROID STIMULATING HORMONE - HEMOGLOBIN A1C 2. Essential hypertension - ICD9: 401.9, ICD10: I10 - Controlled - Continue current medications - Recommend home blood pressure monitoring, to bring results to next visit - Encouraged sodium restriction, DASH or Mediterranean diet - Recommend regular aerobic exercise - Follow up in 6 months or sooner if needed for hypertension visit - ATENOLOL 25 MG TABLET 3. Mild episode of recurrent major depressive disorder (HCC) - ICD9: 296.31, ICD10: F33.0 - Stable on current dose of Prozac - FLUOXETINE 20 MG CAPSULE 4. Vitamin D deficiency - ICD9: 268.9, ICD10: E55.9 - VITAMIN D 25 HYDROXY - CHOLECALCIFEROL (VITAMIN D3) 25 MCG (1,000 UNIT) CAPSULE 5. Fatigue, unspecified type - ICD9: 780.79, ICD10: R53.83 - COMPLETE BLOOD COUNT AND DIFFERENTIAL - VITAMIN D 25 HYDROXY 6. History of iron deficiency - ICD9: V12.3, ICD10: Z86.39 - COMPLETE BLOOD COUNT AND DIFFERENTIAL 7. Screening for lipid disorders - ICD9: V77.91, ICD10: Z13.220 - LIPID PANEL BASIC 8. Screening for thyroid disorder - ICD9: V77.0, ICD10: Z13.29 - THYROID STIMULATING HORMONE 9. Screening for colon cancer - ICD9: V76.51, ICD10: Z12.11 - CONSULT TO GENERAL SURGERY 10. Encounter for screening mammogram for breast cancer - ICD9: V76.12, ICD10: Z12.31 - Set up for mammogram, yearly mammogram recommended - Encouraged monthly BSE - DOUG SCREENING Discussed above plan with patient and/or caregiver. Patient and/or caregiver agreeable with above plan. Follow up visit Return in about 6 months (around 08/23/2024) for Hyperlipidemia, HTN follow-up, needs code for MyChart please. Nora Mccartney APRN.NEUROPATHOLOGIST, signed on February 21, 2024 10:40 AM documented in this encounter [facility] 02-18-2024 Instructions Rosalio Alfaro MD - 02/18/2024 3:21 PM EDT Dry Eye management: Preservative free lubricant eye drop 4 to 8 times daily Both eyes ( refresh, systane, genteal and theratears are good brands) Drink 6 to 8 glasses of clear liquids daily Cool mist humidifier in bedroom documented in this encounter [facility] 02-18-2024 Note HNO ID: [id number] Author: ROSALIO ALFARO MD Service: ? Author Type: Physician Type: Progress Notes Filed: 02/18/2024 15:21 Note Text: Reviewed gia note 02/05/24 Reviewed jose elias note 08/27/23 Reviewed astrid serra ote 06/26/23 (H53.8) Blurred vision, bilateral (primary encounter diagnosis) (H52.7) Refractive error (Z96.1) Pseudophakia (H04.123) Dry eye syndrome, bilateral Blurred vision due to need for Manifest refraction Eye strain from need for Manifest refraction also Manifest refraction given Dry Eye management: Preservative free lubricant eye drop 4 to 8 times daily Both eyes ( refresh, systane, genteal and theratears are good brands) Drink 6 to 8 glasses of clear liquids daily Cool mist humidifier in bedroom I have confirmed and edited as necessary the relevant ophthalmic history, ROS, and the neuro exam findings as obtained by others. I have seen and examined Suhas Arcos. I have discussed the case and the management of this patient's care with the Resident/Fellow, if applicable. I also have reviewed and agree with the assessment and plan as stated above and agree with all of its relevant components. Rosalio Diana MD [facility] 02-18-2024 History of Presen t illness Narrative Reviewed gia note 02/05/24 Reviewed jose elias note 08/27/23 Reviewed astrid serra ote 06/26/23 (H53.8) Blurred vision, bilateral (primary encounter diagnosis) (H52.7) Refractive error (Z96.1) Pseudophakia (H04.123) Dry eye syndrome, bilateral Blurred vision due to need for Manifest refraction Eye strain from need for Manifest refraction also Manifest refraction given Dry Eye management: Preservative free lubricant eye drop 4 to 8 times daily Both eyes ( refresh, systane, genteal and theratears are good brands) Drink 6 to 8 glasses of clear liquids daily Cool mist humidifier in bedroom I have confirmed and edited as necessary the relevant ophthalmic history, ROS, and the neuro exam findings as obtained by others. I have seen and examined Suhas Arcos. I have discussed the case and the management of this patient's care with the Resident/Fellow, if applicable. I also have reviewed and agree with the assessment and plan as stated above and agree with all of its relevant components. Rosalio Diana MD documented in this encounter [facility] 02-05-2024 Note HNO ID: [id number] Author: JULISSA JOHNSON PA Service: ? Author Type: Physician Home Care Consultant Type: Progress Notes Filed: 02/05/2024 16:59 Note Text: This note was created using [employer]. Subjective Suhas Arcos is a 58 year old female. HPI 58-year-old female presents for congestion, cough, sneezing, fatigue, headache for about 6 days. Patient states that last week she started getting sick with some sinus pressure, nasal congestion and sneezing. She states that she has yellow nasal drainage. She reports sinus headache and sinus pressure above her eyebrows. She states that her eyes feel heavy . She states that they just feel tired. No vision changes. No drainage from the eyes. She states that she feels fatigued in general over the past few days as well. She has not had any fevers. No vomiting or diarrhea. Still eating and drinking. No sick contacts that she is aware of. PAST MEDICAL HISTORY Diagnosis Date Dyspepsia and other specified disorders of function of stomach Essential hypertension, benign Hyperlipidemia PAST SURGICAL HISTORY Procedure Laterality Date DELIVERY ONLY , low cervical COLONOSCOPY FLX DX W/COLLJ SPEC WHEN PFRMD 08/31/2011 Colonoscopy/repeat in EGD TRANSORAL BIOPSY SINGLE/MULTIPLE 10/04/10 ESOPHAGOGASTRODUODENOSCOPY TRANSORAL DIAGNOSTIC 08/31/2011 EGD ALLERGIES Sulfa (Sulfonamide Antibiotics) MEDICATIONS atenolol (TENORMIN) 25 mg tablet Take 1 tablet by mouth once daily. loratadine (ALLERGY RELIEF, LORATADINE,) 10 mg tablet Take 1 tablet by mouth once daily. Cholecalciferol, Vitamin D3, 1,000 unit cap Take 1 capsule by mouth once daily. amoxicillin-clavulanate potassium (AUGMENTIN) 875-125 mg per tablet Take 1 tablet by mouth two times a day for 5 days. FAMILY HISTORY Problem Relation Age of Onset Cancer Mother throat Heart Brother mi Diabetes Brother Coronary Artery Disease Brother PA Social History Tobacco Use Smoking status: Never Smokeless tobacco: Never Substance Use Topics Alcohol use: No Drug use: No Review of Systems Constitutional: Positive for fatigue. Negative for chills and fever. HENT: Positive for congestion, sinus pressure, sinus pain and sneezing. Negative for ear pain and sore throat. Respiratory: Positive for cough. Negative for shortness of breath. Cardiovascular: Negative for chest pain. Gastrointestinal: Negative for diarrhea and vomiting. Neurological: Positive for headaches. Objective BP 126/76 Pulse 79 Temp 36.2 ?C (97.2 ?F) (Tympanic) Resp 18 Wt 62.9 kg (138 lb 10.7 oz) LMP 04/26/2017 SpO2 96% BMI 28.01 kg/m? Physical Exam Vitals and nursing note reviewed. Constitutional: General: She is not in acute distress. Appearance: Normal appearance. She is not toxic-appearing. HENT: Right Ear: Tympanic membrane and ear canal normal. Left Ear: Tympanic membrane and ear canal normal. Nose: Mucosal edema and congestion present. Right Sinus: Frontal sinus tenderness present. No maxillary sinus tenderness. Left Sinus: Frontal sinus tenderness present. No maxillary sinus tenderness. Mouth/Throat: Mouth: Mucous membranes are moist. Eyes: General: Lids are normal. Vision grossly intact. Extraocular Movements: Extraocular movements intact. Conjunctiva/sclera: Conjunctivae normal. Pupils: Pupils are equal, round, and reactive to light. Cardiovascular: Rate and Rhythm: Normal rate and regular rhythm. Pulmonary: Effort: Pulmonary effort is normal. Breath sounds: Normal breath sounds. Skin: General: Skin is warm and dry. Neurological: Mental Status: She is alert. Assessment and Plan ASSESSMENT/PLAN: 1. Bacterial sinusitis - ICD9: 473.9, 041.9, ICD10: J32.9, B96.89 (primary diagnosis) - Will begin treatment with Augmentin 875 mg PO BID for 5 days - Supportive care with plenty of fluids, rest, and analgesia prn. 2. Fatigue, unspecified type - ICD9: 780.79, ICD10: R53.83 -Suspect viral illness. Likely cause of fatigue. -Patient declines viral swab, states she has no insurance. -Discussed if symptoms continue, needs close follow-up with PCP. Patient understands. Diagnosis and treatment plan were discussed and questions were answered to the patient's satisfaction. Pt acknowledged understanding of concepts and follow up plan. Specific signs and symptoms that would indicate the need for higher level of care were discussed in detail warranting prompt ER evaluation. PRINCE Colón [facility] 02-05-2024 History of Presen t illness Narrative This note was created using [employer]. Subjective Suhas Arcos is a 58 year old female. HPI 58-year-old female presents for congestion, cough, sneezing, fatigue, headache for about 6 days. Patient states that last week she started getting sick with some sinus pressure, nasal congestion and sneezing. She states that she has yellow nasal drainage. She reports sinus headache and sinus pressure above her eyebrows. She states that her eyes feel heavy . She states that they just feel tired. No vision changes. No drainage from the eyes. She states that she feels fatigued in general over the past few days as well. She has not had any fevers. No vomiting or diarrhea. Still eating and drinking. No sick contacts that she is aware of. PAST MEDICAL HISTORY Diagnosis Date Dyspepsia and other specified disorders of function of stomach Essential hypertension, benign Hyperlipidemia PAST SURGICAL HISTORY Procedure Laterality Date DELIVERY ONLY , low cervical COLONOSCOPY FLX DX W/COLLJ SPEC WHEN PFRMD 08/31/2011 Colonoscopy/repeat in EGD TRANSORAL BIOPSY SINGLE/MULTIPLE 10/04/10 ESOPHAGOGASTRODUODENOSCOPY TRANSORAL DIAGNOSTIC 08/31/2011 EGD ALLERGIES Sulfa (Sulfonamide Antibiotics) MEDICATIONS atenolol (TENORMIN) 25 mg tablet Take 1 tablet by mouth once daily. loratadine (ALLERGY RELIEF, LORATADINE,) 10 mg tablet Take 1 tablet by mouth once daily. Cholecalciferol, Vitamin D3, 1,000 unit cap Take 1 capsule by mouth once daily. amoxicillin-clavulanate potassium (AUGMENTIN) 875-125 mg per tablet Take 1 tablet by mouth two times a day for 5 days. FAMILY HISTORY Problem Relation Age of Onset Cancer Mother throat Heart Brother mi Diabetes Brother Coronary Artery Disease Brother PA Social History Tobacco Use Smoking status: Never Smokeless tobacco: Never Substance Use Topics Alcohol use: No Drug use: No Review of Systems Constitutional: Positive for fatigue. Negative for chills and fever. HENT: Positive for congestion, sinus pressure, sinus pain and sneezing. Negative for ear pain and sore throat. Respiratory: Positive for cough. Negative for shortness of breath. Cardiovascular: Negative for chest pain. Gastrointestinal: Negative for diarrhea and vomiting. Neurological: Positive for headaches. Objective BP 126/76 Pulse 79 Temp 36.2 C (97.2 F) (Tympanic) Resp 18 Wt 62.9 kg (138 lb 10.7 oz) LMP 04/26/2017 SpO2 96% BMI 28.01 kg/m Physical Exam Vitals and nursing note reviewed. Constitutional: General: She is not in acute distress. Appearance: Normal appearance. She is not toxic-appearing. HENT: Right Ear: Tympanic membrane and ear canal normal. Left Ear: Tympanic membrane and ear canal normal. Nose: Mucosal edema and congestion present. Right Sinus: Frontal sinus tenderness present. No maxillary sinus tenderness. Left Sinus: Frontal sinus tenderness present. No maxillary sinus tenderness. Mouth/Throat: Mouth: Mucous membranes are moist. Eyes: General: Lids are normal. Vision grossly intact. Extraocular Movements: Extraocular movements intact. Conjunctiva/sclera: Conjunctivae normal. Pupils: Pupils are equal, round, and reactive to light. Cardiovascular: Rate and Rhythm: Normal rate and regular rhythm. Pulmonary: Effort: Pulmonary effort is normal. Breath sounds: Normal breath sounds. Skin: General: Skin is warm and dry. Neurological: Mental Status: She is alert. Assessment and Plan ASSESSMENT/PLAN: 1. Bacterial sinusitis - ICD9: 473.9, 041.9, ICD10: J32.9, B96.89 (primary diagnosis) - Will begin treatment with Augmentin 875 mg PO BID for 5 days - Supportive care with plenty of fluids, rest, and analgesia prn. 2. Fatigue, unspecified type - ICD9: 780.79, ICD10: R53.83 -Suspect viral illness. Likely cause of fatigue. -Patient declines viral swab, states she has no insurance. -Discussed if symptoms continue, needs close follow-up with PCP. Patient understands. Diagnosis and treatment plan were discussed and questions were answered to the patient's satisfaction. Pt acknowledged understanding of concepts and follow up plan. Specific signs and symptoms that would indicate the need for higher level of care were discussed in detail warranting prompt ER evaluation. PRINCE Colón documented in this encounter [facility] 09-12-2023 History of Presen t illness Narrative Radiology Service Progress Note PATIENT NAME: Suhas Arcos DATE OF SERVICE: September 12, 2023 TIME: 3:36 PM PATIENT IDENTITY VERIFICATION COMPLETED USING TWO (2) IDENTIFIERS: Name and Date of confirmed by patient verbally. FALL SCREENING: Has the patient had 2 falls in the last year or 1 fall with injury or currently using an Ambulatory Assistive Device (Walker, Cane, Wheelchair, Crutches, etc.)? No PATIENT GENDER DATA: Female. status: : No status: NO. PATIENT RELEVANT IMPLANT DATA REVIEWED: Yes RADIOLOGY DEPARTMENT: General X-ray: Exam(s) Completed: Chest X-Ray PERIPHERAL IV DATA: Not applicable SIGNED BY: RT Willa(Susu) September 12, 2023 3:36 PM documented in this encounter [facility] 09-12-2023 Note HNO ID: [id number] Author: America Rodriguez RT(Susu) Service: Radiology Author Type: Technologist Type: Progress Notes Filed: 09/12/2023 3:47 PM Note Text: Radiology Service Progress Note PATIENT NAME: Suhas Arcos DATE OF SERVICE: September 12, 2023 TIME: 3:36 PM PATIENT IDENTITY VERIFICATION COMPLETED USING TWO (2) IDENTIFIERS: Name and Date of confirmed by patient verbally. FALL SCREENING: Has the patient had 2 falls in the last year or 1 fall with injury or currently using an Ambulatory Assistive Device (Walker, Cane, Wheelchair, Crutches, etc.)? No PATIENT GENDER DATA: Female. status: : No status: NO. PATIENT RELEVANT IMPLANT DATA REVIEWED: Yes RADIOLOGY DEPARTMENT: General X-ray: Exam(s) Completed: Chest X-Ray PERIPHERAL IV DATA: Not applicable SIGNED BY: RT Willa(Susu) September 12, 2023 3:36 PM [facility] 09-12-2023 Note HNO ID: [id number] Author: Julissa Johnson PA Service: ? Author Type: Physician Home Care Consultant Type: Progress Notes Filed: 09/12/2023 4:05 PM Note Text: This note was created using [employer]. Subjective Suhas Arcos is a 58 year old female. HPI 50-year-old female presents for cough, congestion, body aches. Patient states that she was here 2 weeks ago and she thought she was diagnosed with COVID. Per chart review, it appears she was influenza positive and negative for COVID. She was out of the treatment window at that point. She states that for the past 2 weeks, she has had continued nasal congestion, sinus headache, sinus pressure and dry cough. She states she has coughing fits at nighttime. She is not coughing anything up. She has not had any fevers. She does have body aches and is fatigued. She denies any vomiting or diarrhea. No other complaints. PAST MEDICAL HISTORY Diagnosis Date Dyspepsia and other specified disorders of function of stomach Essential hypertension, benign Hyperlipidemia PAST SURGICAL HISTORY Procedure Laterality Date DELIVERY ONLY , low cervical COLONOSCOPY FLX DX W/COLLJ SPEC WHEN PFRMD 08/31/2011 Colonoscopy/repeat in -2020 EGD TRANSORAL BIOPSY SINGLE/MULTIPLE 10/04/10 ESOPHAGOGASTRODUODENOSCOPY TRANSORAL DIAGNOSTIC 08/31/2011 EGD ALLERGIES Sulfa (Sulfonamide Antibiotics) MEDICATIONS atenolol (TENORMIN) 25 mg tablet Take 1 tablet by mouth once daily. loratadine (ALLERGY RELIEF, LORATADINE,) 10 mg tablet Take 1 tablet by mouth once daily. Cholecalciferol, Vitamin D3, 1,000 unit cap Take 1 capsule by mouth once daily. FAMILY HISTORY Problem Relation Age of Onset Cancer Mother throat Heart Brother mi Diabetes Brother Coronary Artery Disease Brother PA Social History Tobacco Use Smoking status: Never Smokeless tobacco: Never Substance Use Topics Alcohol use: No Drug use: No Review of Systems Constitutional: Positive for fatigue. Negative for chills and fever. HENT: Positive for congestion, sinus pressure and sinus pain. Negative for ear pain and sore throat. Respiratory: Positive for cough. Negative for shortness of breath. Cardiovascular: Negative for chest pain. Gastrointestinal: Negative for diarrhea and vomiting. Musculoskeletal: Positive for myalgias. Objective BP 138/82 Pulse 61 Temp 36.4 ?C (97.5 ?F) (Tympanic) Resp 18 Wt 63.4 kg (139 lb 12.8 oz) LMP 04/26/2017 SpO2 99% BMI 28.24 kg/m? Physical Exam Vitals and nursing note reviewed. Constitutional: General: She is not in acute distress. Appearance: Normal appearance. She is not toxic-appearing. HENT: Right Ear: Tympanic membrane and ear canal normal. Left Ear: Tympanic membrane and ear canal normal. Nose: Mucosal edema present. Right Sinus: Frontal sinus tenderness present. Left Sinus: Frontal sinus tenderness present. Mouth/Throat: Mouth: Mucous membranes are moist. Pharynx: No oropharyngeal exudate or posterior oropharyngeal erythema. Eyes: Conjunctiva/sclera: Conjunctivae normal. Cardiovascular: Rate and Rhythm: Normal rate and regular rhythm. Pulmonary: Effort: Pulmonary effort is normal. Breath sounds: Normal breath sounds. Neurological: Mental Status: She is alert. Assessment and Plan ASSESSMENT/PLAN: 1. Acute cough - ICD9: 786.2, ICD10: R05.1 (primary diagnosis) - XR CHEST 2V FRONTAL/LAT -CXR is normal. No acute abnormality. -Likely cough is lingering from influenza. No signs of pneumonia on exam. 2. Bacterial sinusitis - ICD9: 473.9, 041.9, ICD10: J32.9, B96.89 -Positive flu 2 weeks ago. Continued congestion and sinus pressure. Possibly secondary bacterial sinus infection. Will treat with Augmentin. - Will begin treatment with Augmentin 875 mg PO BID for 5 days - Supportive care with plenty of fluids, rest, and analgesia prn. Diagnosis and treatment plan were discussed and questions were answered to the patient's satisfaction. Pt acknowledged understanding of concepts and follow up plan. Specific signs and symptoms that would indicate the need for higher level of care were discussed in detail warranting prompt ER evaluation. PRINCE Colón [facility] 09-12-2023 History of Presen t illness Narrative This note was created using [employer]. Subjective Suhas Arcos is a 58 year old female. HPI 50-year-old female presents for cough, congestion, body aches. Patient states that she was here 2 weeks ago and she thought she was diagnosed with COVID. Per chart review, it appears she was influenza positive and negative for COVID. She was out of the treatment window at that point. She states that for the past 2 weeks, she has had continued nasal congestion, sinus headache, sinus pressure and dry cough. She states she has coughing fits at nighttime. She is not coughing anything up. She has not had any fevers. She does have body aches and is fatigued. She denies any vomiting or diarrhea. No other complaints. PAST MEDICAL HISTORY Diagnosis Date Dyspepsia and other specified disorders of function of stomach Essential hypertension, benign Hyperlipidemia PAST SURGICAL HISTORY Procedure Laterality Date DELIVERY ONLY , low cervical COLONOSCOPY FLX DX W/COLLJ SPEC WHEN PFRMD 08/31/2011 Colonoscopy/repeat in EGD TRANSORAL BIOPSY SINGLE/MULTIPLE 10/04/10 ESOPHAGOGASTRODUODENOSCOPY TRANSORAL DIAGNOSTIC 08/31/2011 EGD ALLERGIES Sulfa (Sulfonamide Antibiotics) MEDICATIONS atenolol (TENORMIN) 25 mg tablet Take 1 tablet by mouth once daily. loratadine (ALLERGY RELIEF, LORATADINE,) 10 mg tablet Take 1 tablet by mouth once daily. Cholecalciferol, Vitamin D3, 1,000 unit cap Take 1 capsule by mouth once daily. FAMILY HISTORY Problem Relation Age of Onset Cancer Mother throat Heart Brother mi Diabetes Brother Coronary Artery Disease Brother PA Social History Tobacco Use Smoking status: Never Smokeless tobacco: Never Substance Use Topics Alcohol use: No Drug use: No Review of Systems Constitutional: Positive for fatigue. Negative for chills and fever. HENT: Positive for congestion, sinus pressure and sinus pain. Negative for ear pain and sore throat. Respiratory: Positive for cough. Negative for shortness of breath. Cardiovascular: Negative for chest pain. Gastrointestinal: Negative for diarrhea and vomiting. Musculoskeletal: Positive for myalgias. Objective BP 138/82 Pulse 61 Temp 36.4 C (97.5 F) (Tympanic) Resp 18 Wt 63.4 kg (139 lb 12.8 oz) LMP 04/26/2017 SpO2 99% BMI 28.24 kg/m Physical Exam Vitals and nursing note reviewed. Constitutional: General: She is not in acute distress. Appearance: Normal appearance. She is not toxic-appearing. HENT: Right Ear: Tympanic membrane and ear canal normal. Left Ear: Tympanic membrane and ear canal normal. Nose: Mucosal edema present. Right Sinus: Frontal sinus tenderness present. Left Sinus: Frontal sinus tenderness present. Mouth/Throat: Mouth: Mucous membranes are moist. Pharynx: No oropharyngeal exudate or posterior oropharyngeal erythema. Eyes: Conjunctiva/sclera: Conjunctivae normal. Cardiovascular: Rate and Rhythm: Normal rate and regular rhythm. Pulmonary: Effort: Pulmonary effort is normal. Breath sounds: Normal breath sounds. Neurological: Mental Status: She is alert. Assessment and Plan ASSESSMENT/PLAN: 1. Acute cough - ICD9: 786.2, ICD10: R05.1 (primary diagnosis) - XR CHEST 2V FRONTAL/LAT -CXR is normal. No acute abnormality. -Likely cough is lingering from influenza. No signs of pneumonia on exam. 2. Bacterial sinusitis - ICD9: 473.9, 041.9, ICD10: J32.9, B96.89 -Positive flu 2 weeks ago. Continued congestion and sinus pressure. Possibly secondary bacterial sinus infection. Will treat with Augmentin. - Will begin treatment with Augmentin 875 mg PO BID for 5 days - Supportive care with plenty of fluids, rest, and analgesia prn. Diagnosis and treatment plan were discussed and questions were answered to the patient's satisfaction. Pt acknowledged understanding of concepts and follow up plan. Specific signs and symptoms that would indicate the need for higher level of care were discussed in detail warranting prompt ER evaluation. PRINCE Colón documented in this encounter [facility] 08-28-2023 Miscellaneous Notes Patient calls and notified of results and providers instructions. Patient verbalizes understanding. Lizzeth Jackson RN Left message for patient to return call. Elizabeth Mccormack Please notify that patient was positive for flu. Past treatment window. Usually contagious for 5-7 days. Return to work when 24 hours fever free. documented in this encounter [facility] 08-27-2023 Note HNO ID: [id number] Author: Julian Miguel MD Service: ? Author Type: Physician Type: Progress Notes Filed: 08/27/2023 12:43 PM Note Text: Patient presents with: Head Congestion: Cough, L ear pain, ST, runny nose x4 days HPI: Feeling sick for 4 days. Positive symptoms: Cough, Sore throat, Earache, Nasal Congestion, Rhinorrhea, Feverish, Chills, Body Aches, Malaise, Fatigue, Headache, Negative symptoms: Shortness of breath, Vomiting, Diarrhea, OTC: Dayquil, Lozenges, Tylenol PAST MEDICAL HISTORY Diagnosis Date Dyspepsia and other specified disorders of function of stomach Essential hypertension, benign MEDICATIONS: Current Outpatient Medications Medication Sig atenolol (TENORMIN) 25 mg tablet Take 1 tablet by mouth once daily. loratadine (ALLERGY RELIEF, LORATADINE,) 10 mg tablet Take 1 tablet by mouth once daily. Cholecalciferol, Vitamin D3, 1,000 unit cap Take 1 capsule by mouth once daily. No current facility-administered medications for this visit. ALLERGIES: ALLERGIES Allergen Reactions Sulfa (Sulfonamide * itching, rash VITALS: BP 151/78 Pulse 79 Temp 36.4 ?C (97.6 ?F) Resp 18 Wt 64.8 kg (142 lb 12.8 oz) LMP 04/26/2017 SpO2 97% BMI 28.84 kg/m? PHYSICAL EXAM: GEN: mildly ill appearing HEENT: PERRL, EOMI, conjunctiva clear Ears: canals clear. TMs without erythema, bulge, or effusion Sinuses: non-tender frontal sinus, non-tender maxillary sinuses Throat: moist mucous membranes, mild erythema, no exudate Neck: supple, no thyromegaly, no lymphadenopathy HEART: regular rate and rhythm, no murmurs LUNGS: clear to auscultation, no wheezes or crackles, no increased [facility] 11/16/22: EST GFR - AA 104 mL/min ASSESSMENT/PLAN: 1. URI, acute - ICD9: 465.9, ICD10: J06.9 - suspect viral URI, differential includes COVID-19. - Discussed supportive care treatment with rest, cold medicine, and analgesia. - Red flags to seek further treatment include chest pain, shortness of breath, and lethargy; in the ER if severe. - COVID AND INFLUENZA A/B NAAT, ROUTINE - We will call in [place]lov[place] if positive. Julian Miguel MD [facility] 08-27-2023 History of Presen t illness Narrative Patient presents with: Head Congestion: Cough, L ear pain, ST, runny nose x4 days HPI: Feeling sick for 4 days. Positive symptoms: Cough, Sore throat, Earache, Nasal Congestion, Rhinorrhea, Feverish, Chills, Body Aches, Malaise, Fatigue, Headache, Negative symptoms: Shortness of breath, Vomiting, Diarrhea, OTC: Dayquil, Lozenges, Tylenol PAST MEDICAL HISTORY Diagnosis Date Dyspepsia and other specified disorders of function of stomach Essential hypertension, benign MEDICATIONS: Current Outpatient Medications Medication Sig atenolol (TENORMIN) 25 mg tablet Take 1 tablet by mouth once daily. loratadine (ALLERGY RELIEF, LORATADINE,) 10 mg tablet Take 1 tablet by mouth once daily. Cholecalciferol, Vitamin D3, 1,000 unit cap Take 1 capsule by mouth once daily. No current facility-administered medications for this visit. ALLERGIES: ALLERGIES Allergen Reactions Sulfa (Sulfonamide * itching, rash VITALS: BP 151/78 Pulse 79 Temp 36.4 C (97.6 F) Resp 18 Wt 64.8 kg (142 lb 12.8 oz) LMP 04/26/2017 SpO2 97% BMI 28.84 kg/m PHYSICAL EXAM: GEN: mildly ill appearing HEENT: PERRL, EOMI, conjunctiva clear Ears: canals clear. TMs without erythema, bulge, or effusion Sinuses: non-tender frontal sinus, non-tender maxillary sinuses Throat: moist mucous membranes, mild erythema, no exudate Neck: supple, no thyromegaly, no lymphadenopathy HEART: regular rate and rhythm, no murmurs LUNGS: clear to auscultation, no wheezes or crackles, no increased [facility] 11/16/22: EST GFR - AA 104 mL/min ASSESSMENT/PLAN: 1. URI, acute - ICD9: 465.9, ICD10: J06.9 - suspect viral URI, differential includes COVID-19. - Discussed supportive care treatment with rest, cold medicine, and analgesia. - Red flags to seek further treatment include chest pain, shortness of breath, and lethargy; in the ER if severe. - COVID & INFLUENZA A/B NAAT, ROUTINE - We will call in [place]lovid if positive. Julian Miguel MD documented in this encounter [facility] 02-23-2023 History of Presen t illness Narrative Images from the original note were not included. Subjective Rash Pertinent negatives include no fever. Suhas Arcos is a 57 year old female who presents with itching on bilateral forearms for the past 4 days. She has washed her skin with water and vinegar and this has not helped. She denies any new lotions, soaps or detergents or medications. She does admit to working outside a little in the past few days. She has not had a fever. The rash is itchy but not painful. She has not taken any medication at home for this. Review of Systems Constitutional: Negative for chills and fever. Respiratory: Negative. Cardiovascular: Negative. Musculoskeletal: Negative for myalgias. Skin: Positive for itching and rash. BP 122/80 Pulse 67 Temp 36.6 C (97.8 F) (Tympanic) Resp 16 Wt 62.7 kg (138 lb 3.2 oz) LMP 04/26/2017 SpO2 99% BMI 27.91 kg/m PAST MEDICAL HISTORY Diagnosis Date Dyspepsia and other specified disorders of function of stomach Essential hypertension, benign PAST SURGICAL HISTORY Procedure Laterality Date DELIVERY ONLY , low cervical COLONOSCOPY FLX DX W/COLLJ SPEC WHEN PFRMD 08/31/2011 Colonoscopy/repeat in EGD TRANSORAL BIOPSY SINGLE/MULTIPLE 10/04/10 ESOPHAGOGASTRODUODENOSCOPY TRANSORAL DIAGNOSTIC 08/31/2011 EGD ALLERGIES Sulfa (Sulfonamide Antibiotics) MEDICATIONS atenolol (TENORMIN) 25 mg tablet Take 1 tablet by mouth once daily. loratadine (ALLERGY RELIEF, LORATADINE,) 10 mg tablet Take 1 tablet by mouth once daily. trolamine salicylate (ASPERCREME) 10 % cream Apply to affected area as needed. acetaminophen (TYLENOL ARTHRITIS PAIN) 650 mg CR tablet Take 1 tablet by mouth every 8 hours as needed. ibuprofen (MOTRIN) 600 mg tablet Take 1 tablet by mouth every 6 hours as needed for pain. naproxen (NAPROSYN) 500 mg tablet Take 1 tablet by mouth twice daily as needed (for pain/inflammation). Take with food. ASCORBIC ACID (VITAMIN C ORAL) Take by mouth once daily. triamcinolone (KENALOG) 0.025 % cream Apply 1 application to affected area twice daily. predniSONE (DELTASONE) 20 mg tablet Take 1 tablet by mouth once daily for 4 days. Take daily with food. escitalopram oxalate (LEXAPRO) 20 mg tablet Take 1 tablet by mouth once daily. (Patient not taking: Reported on 11/14/2022) etodolac (LODINE) 300 mg capsule Take 1 capsule by mouth every 8 hours. (Patient not taking: Reported on 11/14/2022) buPROPion (WELLBUTRIN) 100 mg tablet Take 1 tablet by mouth twice daily. (Patient not taking: Reported on 11/14/2022) omeprazole (PRILOSEC) 20 mg capsule Take 1 capsule by mouth once daily. Before morning meal (Patient not taking: Reported on 11/14/2022) Cholecalciferol, Vitamin D3, 1,000 unit cap Take 1 capsule by mouth once daily. (Patient not taking: Reported on 11/14/2022) cholecalciferol, Vitamin D3, (VITAMIN D3) 50,000 unit cap capsule Take 1 capsule by mouth twice a week. (ONE CAPSULE) FOR VITAMIN D DEFICIENCY (Patient not taking: Reported on 11/14/2022) fluticasone (FLONASE) 50 mcg/actuation nasal spray Use 2 Sprays in each nostril once daily. Rinse mouth after use. (Patient not taking: Reported on 11/14/2022) ferrous sulfate (FERROUSUL) 325 mg (65 mg iron) tablet Take 1 tablet by mouth daily with breakfast. (Patient not taking: Reported on 11/14/2022) Cyanocobalamin (VITAMIN B-12) 50 mcg tab Take 500 mg by mouth once daily. MULTIVITAMIN ORAL Take by mouth. (Patient not taking: Reported on 11/14/2022) FAMILY HISTORY Problem Relation Age of Onset Cancer Mother throat Heart Brother mi Diabetes Brother Coronary Artery Disease Brother PA Social History Tobacco Use Smoking status: Never Smokeless tobacco: Never Substance Use Topics Alcohol use: No Drug use: No Objective Physical Exam Vitals and nursing note reviewed. Constitutional: Appearance: Normal appearance. She is not ill-appearing. Cardiovascular: Rate and Rhythm: Normal rate and regular rhythm. Heart sounds: Normal heart sounds. Pulmonary: Effort: Pulmonary effort is normal. No respiratory distress. Breath sounds: Normal breath sounds. No wheezing or rales. Skin: General: Skin is warm and dry. Capillary Refill: Capillary refill takes less than 2 seconds. Findings: Erythema and rash present. Neurological: Mental Status: She is alert. ASSESSMENT/PLAN: 1. Rash - ICD9: 782.1, ICD10: R21 - suspect allergic dermatitis - TRIAMCINOLONE ACETONIDE 0.025 % TOPICAL CREAM - PREDNISONE 20 MG TABLET - Follow-up with your PCP in 3-5 days if symptoms have not improved or sooner if symptoms worsen - Discussed red flags and need for immediate medical evaluation if any occur. - Discussed supportive care treatment with fluids, rest and analgesia. - Discussed expected course of illness Meera Pa APRN.CNP documented in this encounter [facility] 02-23-2023 Instructions Meera Pa APRN.CNP - 02/23/2023 12:41 PM EDT ASSESSMENT/PLAN: 1. Rash - ICD9: 782.1, ICD10: R21 - suspect allergic dermatitis - TRIAMCINOLONE ACETONIDE 0.025 % TOPICAL CREAM - PREDNISONE 20 MG TABLET - Follow-up with your PCP in 3-5 days if symptoms have not improved or sooner if symptoms worsen - Discussed red flags and need for immediate medical evaluation if any occur. - Discussed supportive care treatment with fluids, rest and analgesia. - Discussed expected course of illness Meera Pa APRN.CNP NONSPECIFIC RASH: Our exam shows you have a rash which has no clear cause. Rashes can result from infections, allergies, or irritation of the skin by chemicals or other environmental factors. Rashes can also result from scratching or rubbing the skin too much to relieve itching. Further medical examination may be needed to identify the specific cause and proper treatment of your skin rash. You should treat your rash as recommended by your doctor. If you have itching, you should avoid scratching as much as possible, as this further damages the skin. Ask your doctor or pharmacist if you have any questions about what topical medicines may help relieve your symptoms. Call your doctor right away if your rash is not better in 2-3 days, if it worsens, or if there are signs of infection (increased pain, redness, drainage or pus). documented in this encounter [facility] 11-14-2022 Instructions Meera Pa APRN.CNP - 11/14/2022 6:07 PM EST ASSESSMENT/PLAN: 1. Arthritis pain - ICD9: 716.90, ICD10: M19.90 (primary diagnosis) - ASPERCREME 10 % TOPICAL - IBUPROFEN 600 MG TABLET- do not combine with aleve. - NAPROXEN 500 MG TABLET- do not combine with ibuprofen. 2. Essential hypertension - ICD9: 401.9, ICD10: I10 - Recommended regular aerobic exercise. - Goal of BP <130/80 - ATENOLOL 25 MG TABLET - Follow-up with your PCP in 3-5 days if symptoms have not improved or sooner if symptoms worsen - Discussed red flags and need for immediate medical evaluation if any occur. Meera Pa APRN.MARSHAL documented in this encounter [facility] 11-14-2022 History of Presen t illness Narrative Subjective HPI Suhas Arcos is a 57 year old female who presents due to being out of her hypertension medication and some other routine meds. She states she accidentally signed a form to have her records transferred to another doctor and this was due to her misunderstanding as [place] is her second language. She did not mean to dismiss her doctor (Dr. Kilpatrick). When she tried to explain this both over the phone and in person at his office she was told she fired Dr. Kilpatrick and that he did not wish to see her again. She was very distraught by this news. She has now obtained an appointment with a new PCP at [facility] [place] but she has since run out of her medication. She went to [facility] to have these refilled and was told they could not refill chronic meds. She then went to [facility] Room at [facility] and they told her they were too busy to see her and sent her here. She has not had her atenolol in one week. She denies any current symptoms other than arthritis pain in her left knee. She takes tylenol for this twice daily and also takes either ibuprofen or aleve if she is having a day when tylenol is not sufficient for her pain. She does pool therapy and land therapy at [facility] for cardiovascular exercise and to help with her arthritis. Review of Systems Constitutional: Negative for chills and fever. HENT: Negative for congestion, ear pain and sore throat. Eyes: Negative. Respiratory: Negative for cough and shortness of breath. Cardiovascular: Negative for chest pain. Gastrointestinal: Negative. Genitourinary: Negative. Musculoskeletal: Positive for joint pain. Negative for falls. Skin: Negative for itching and rash. Neurological: Negative for dizziness and headaches. Psychiatric/Behavioral: Negative for depression. BP 138/88 Pulse 76 Temp 36.1 C (96.9 F) Resp 16 Wt 63.3 kg (139 lb 9.6 oz) LMP 04/26/2017 SpO2 97% BMI 28.20 kg/m PAST MEDICAL HISTORY Diagnosis Date Dyspepsia and other specified disorders of function of stomach Essential hypertension, benign PAST SURGICAL HISTORY Procedure Laterality Date DELIVERY ONLY , low cervical COLONOSCOPY FLX DX W/COLLJ SPEC WHEN PFRMD 08/31/2011 Colonoscopy/repeat in EGD TRANSORAL BIOPSY SINGLE/MULTIPLE 10/04/10 ESOPHAGOGASTRODUODENOSCOPY TRANSORAL DIAGNOSTIC 08/31/2011 EGD ALLERGIES Sulfa (Sulfonamide Antibiotics) MEDICATIONS ASCORBIC ACID (VITAMIN C ORAL) Take by mouth once daily. atenolol (TENORMIN) 25 mg tablet Take 1 tablet by mouth once daily. loratadine (ALLERGY RELIEF, LORATADINE,) 10 mg tablet Take 1 tablet by mouth once daily. trolamine salicylate (ASPERCREME) 10 % cream Apply to affected area as needed. acetaminophen (TYLENOL ARTHRITIS PAIN) 650 mg CR tablet Take 1 tablet by mouth every 8 hours as needed. ibuprofen (MOTRIN) 600 mg tablet Take 1 tablet by mouth every 6 hours as needed for pain. naproxen (NAPROSYN) 500 mg tablet Take 1 tablet by mouth twice daily as needed (for pain/inflammation). Take with food. escitalopram oxalate (LEXAPRO) 20 mg tablet Take 1 tablet by mouth once daily. (Patient not taking: Reported on 11/14/2022) etodolac (LODINE) 300 mg capsule Take 1 capsule by mouth every 8 hours. (Patient not taking: Reported on 11/14/2022) buPROPion (WELLBUTRIN) 100 mg tablet Take 1 tablet by mouth twice daily. (Patient not taking: Reported on 11/14/2022) omeprazole (PRILOSEC) 20 mg capsule Take 1 capsule by mouth once daily. Before morning meal (Patient not taking: Reported on 11/14/2022) Cholecalciferol, Vitamin D3, 1,000 unit cap Take 1 capsule by mouth once daily. (Patient not taking: Reported on 11/14/2022) cholecalciferol, Vitamin D3, (VITAMIN D3) 50,000 unit cap capsule Take 1 capsule by mouth twice a week. (ONE CAPSULE) FOR VITAMIN D DEFICIENCY (Patient not taking: Reported on 11/14/2022) fluticasone (FLONASE) 50 mcg/actuation nasal spray Use 2 Sprays in each nostril once daily. Rinse mouth after use. (Patient not taking: Reported on 11/14/2022) ferrous sulfate (FERROUSUL) 325 mg (65 mg iron) tablet Take 1 tablet by mouth daily with breakfast. (Patient not taking: Reported on 11/14/2022) Cyanocobalamin (VITAMIN B-12) 50 mcg tab Take 500 mg by mouth once daily. MULTIVITAMIN ORAL Take by mouth. (Patient not taking: Reported on 11/14/2022) FAMILY HISTORY Problem Relation Age of Onset Cancer Mother throat Heart Brother mi Diabetes Brother Coronary Artery Disease Brother PA Social History Tobacco Use Smoking status: Never Smokeless tobacco: Never Substance Use Topics Alcohol use: No Drug use: No Objective Physical Exam Vitals and nursing note reviewed. Constitutional: General: She is not in acute distress. Appearance: Normal appearance. She is not ill-appearing. Cardiovascular: Rate and Rhythm: Normal rate and regular rhythm. Heart sounds: Normal heart sounds. Pulmonary: Effort: Pulmonary effort is normal. No respiratory distress. Breath sounds: Normal breath sounds. No wheezing or rales. Skin: General: Skin is warm and dry. Findings: No erythema or rash. Neurological: Mental Status: She is alert. ASSESSMENT/PLAN: 1. Arthritis pain - ICD9: 716.90, ICD10: M19.90 (primary diagnosis) - ASPERCREME 10 % TOPICAL - IBUPROFEN 600 MG TABLET- do not combine with aleve. - NAPROXEN 500 MG TABLET- do not combine with ibuprofen. 2. Essential hypertension - ICD9: 401.9, ICD10: I10 - Recommended regular aerobic exercise. - Goal of BP <130/80 - ATENOLOL 25 MG TABLET - Follow-up with your PCP in 3-5 days if symptoms have not improved or sooner if symptoms worsen - Discussed red flags and need for immediate medical evaluation if any occur. Meera Pa APRN.MARSHAL documented in this encounter [facility] 01-23-2013 History of Past i llness Narrative Problem Noted Date Resolved Date Neck pain 01/23/2013 06/28/2016 Blood in stool 08/31/2011 03/24/2014 Anemia, unspecified 08/31/2011 06/28/2016 Dyspepsia and other specifie d disorders of function of stomach 10/04/2010 11/16/2015 Anxiety state, unspecified 07/04/200706/28 Headache(784.0) 07/04/2007 06/28/2016 documented as of this encounter (statuses as of 11/15/2022) [facility] History of Past illness Narrative* Problem Noted Date Resolved Date Neck pain 01/23/2013 06/28/2016 Blood in stool 08/31/2011 03/24/2014 Anemia, unspecified 08/31/2011 06/28/2016 Dyspepsia and other specifie d disorders of function of stomach 10/04/2010 11/16/2015 Anxiety state, unspecified 07/04/200706/28 Headache(784.0) 07/04/2007 06/28/2016 documented as of this encounter (statuses as of 02/23/2023) [facility] History of Past illness Narrative* Problem Noted Date Diagnosed Date Resolved Date Neck pain 01/23/2013 06/28/2016 Blood in stool 08/31/2011 03/24/2014 Anemia, unspecified 08/31/2011 06/28/20 16 Dyspepsia and other specifie d disorders of function of stomach 10/04/2010 11/16/2015 Anxiety state, unspecified 07/04/2007 0 06/28/2016 Headache(784.0) 07/04/2007 06/28/2016 documented as of this encounter (statuses as of 08/27/2023) [facility] History of Past illness Narrative* Problem Noted Date Diagnosed Date Resolved Date Neck pain 01/23/2013 06/28/2016 Blood in stool 08/31/2011 03/24/2014 Anemia, unspecified 08/31/2011 06/28/20 16 Dyspepsia and other specifie d disorders of function of stomach 10/04/2010 11/16/2015 Anxiety state, unspecified 07/04/2007 0 06/28/2016 Headache(784.0) 07/04/2007 06/28/2016 documented as of this encounter (statuses as of 08/28/2023) [facility] History of Past illness Narrative* Problem Noted Date Diagnosed Date Resolved Date Neck pain 01/23/2013 06/28/2016 Blood in stool 08/31/2011 03/24/2014 Anemia, unspecified 08/31/2011 06/28/20 16 Dyspepsia and other specifie d disorders of function of stomach 10/04/2010 11/16/2015 Anxiety state, unspecified 07/04/2007 0 06/28/2016 Headache(784.0) 07/04/2007 06/28/2016 documented as of this encounter (statuses as of 09/13/2023) [facility] Diagnosis Arthritis pain- Primary Arthropathy, unspecified, site unspecified Essential hypertension Unspecified essential hypertension [facility] Diagnosis Rash- Primary Rash and other nonspecific skin eruption [facility] Diagnosis URI, acute- Primary Acute upper respiratory infections of unspecified site [facility] Diagnosis Acute cough- Primary Bacterial sinusitis Unspecified sinusitis (chronic) [facility] Diagnosis Bacterial sinusitis- Primary Unspecified sinusitis (chronic) Fatigue, unspecified type [facility] Diagnosis Blurred vision, bilateral- Primary Other specified visual disturbances Refractive error Unspecified disorder of refraction and accommodation Pseudophakia Lens replaced by other means Dry eye syndrome, bilateral [facility] Diagnosis Well adult exam- Primary Routine general medical examination at a health care facility Essential hypertension Unspecified essential hypertension Mild episode of recurrent major depressive disorder (HCC) Vitamin D deficiency Unspecified vitamin D deficiency Fatigue, unspecified type History of iron deficiency Personal history of diseases of blood and blood-forming organs Screening for lipid disorders Screening for thyroid disorder Screening for colon cancer Special screening for malignant neoplasms, colon Encounter for screening mammogram for breast cancer [facility] Diagnosis Viral illness- Primary Unspecified viral infection, in conditions classified elsewhere and of unspecified site [facility] Diagnosis HYPERTENSION NOS- Primary Unspecified essential hypertension Adjustment disorder with mixed anxiety and depressed mood Essential hypertension- Primary Unspecified essential hypertension Routine health maintenance Routine general medical examination at a health care facility Encounter for screening mammogram for malignant neoplasm of breast Other screening mammogram Vitamin D deficiency Unspecified vitamin D deficiency Malaise and fatigue Other malaise and fatigue Insomnia, unspecified Iron deficiency anemia secondary to inadequate dietary iron intake Right lumbar radiculopathy Thoracic or lumbosacral neuritis or radiculitis, unspecified Acute cough [facility] Diagnosis HYPERTENSION NOS- Primary Unspecified essential hypertension Adjustment disorder with mixed anxiety and depressed mood Essential hypertension- Primary Unspecified essential hypertension Routine health maintenance Routine general medical examination at a health care facility Encounter for screening mammogram for malignant neoplasm of breast Other screening mammogram Vitamin D deficiency Unspecified vitamin D deficiency Malaise and fatigue Other malaise and fatigue Insomnia, unspecified Iron deficiency anemia secondary to inadequate dietary iron intake Right lumbar radiculopathy Thoracic or lumbosacral neuritis or radiculitis, unspecified Essential hypertension Unspecified essential hypertension Vitamin D deficiency Unspecified vitamin D deficiency Mild episode of recurrent major depressive disorder (HCC) [facility] Diagnosis HYPERTENSION NOS- Primary Unspecified essential hypertension Adjustment disorder with mixed anxiety and depressed mood Essential hypertension- Primary Unspecified essential hypertension Routine health maintenance Routine general medical examination at a health care facility Encounter for screening mammogram for malignant neoplasm of breast Other screening mammogram Vitamin D deficiency Unspecified vitamin D deficiency Malaise and fatigue Other malaise and fatigue Insomnia, unspecified Iron deficiency anemia secondary to inadequate dietary iron intake Right lumbar radiculopathy Thoracic or lumbosacral neuritis or radiculitis, unspecified Moderate episode of recurrent major depressive disorder (HCC)- Primary Essential hypertension Unspecified essential hypertension Chronic pain of left knee Pain in joint, lower leg Primary osteoarthritis of left knee Primary localized osteoarthrosis, lower leg Vitamin D deficiency Unspecified vitamin D deficiency Encounter for immunization Need for other specified prophylactic vaccination against single bacterial disease Colon cancer screening Special screening for malignant neoplasms, colon [facility] Diagnostic Procedure Only (Routine) - Pending Review Specialty Diagnoses / Procedures Referred By Geoffrey magallanes Referred To Contact [facility] Diagnoses Encounter for screening mammogram for breast cancer Procedures DOUG SCREENING SCREENING MAMMOGRAPHY BI 2-VIEW BREAST INC CAD Nora Mccartney APRN.NEUROPATHOLOGIST [address] [place] [address] [facility] [address] [place] [address] Referral ID Status Reason Start Date Expiration Date Visits Requested Visits Authorized [id number] Pending Review Auto-Generat ed Referral 02/21/2024 03/22/2025 1 1 * Consult, Test, Treat (Routine) - Authorized Specialty Diagnoses / Procedures Referred By Geoffrey magallanes Referred To Contact General Surgery / GENERAL SURGERY Diagnoses Screening for colon cancer Procedures CONSULT TO GENERAL SURGERY OFFICE/OUTPATIENT [facility] 60 MINUTES Nora Mccartney APRN.CNP [address] [place] [address] [facility] [place] [address] Referral ID Status Reason Start Date Expiration Date Visits Requested Visits Authorized [id number] Authorized PCP Requested Referral 02/21/2024 02/20/2025 1 1 [facility] Health Concerns Infection Onset Date Last Indicated Resolved Time COVID-19 Rule-Out 08/27/2023 08/27/2023 08/28/2023 1:47 AM EST Summary Purpose Family History No Family History Records FoundNo Family History Records Found Advance Directives No Advanced Directives Records FoundNo Advanced Directives Records Found Reason for Referral Specialty Diagnoses / Procedures Referred By Contac t Referred To Contact [facility] Diagnoses Chronic pain of left knee Primary osteoarthritis of left knee Procedures CONSULT TO PHYSICAL THERAPY PHYSICAL THERAPY EVALUATION HIGH COMPLEX 45 MINS Nora Mccartney APRN.NEUROPATHOLOGIST [address] [place] [address] [facility] [place] [id number] Referral ID Status Reason Start Date Expiration Date Visits Requested Visits Authorized [id number] Pending Review Auto-Generat ed Referral 07/21/2024 07/21/2025 1 1 Specialty Diagnoses / Procedures Referred By Contac t Referred To Contact Orthopedics / [facility] DEPARTMENT Diagnoses Primary osteoarthritis of left knee Procedures CONSULT TO ORTHOPAEDIC SURGERY OFFICE/OUTPATIENT NEW HIGH MDM 60 MINUTES Nora Mccartney APRN.NEUROPATHOLOGIST [address] [place] [address] Emilie Negro PA-C [address] [place] [address] Referral ID Status Reason Start Date Expiration Date Visits Requested Visits Authorized [id number] Authorized PCP Requested Referral 07/21/2024 07/21/2025 1 1 Specialty Diagnoses / Procedures Referred By Contac t Referred To Contact General Surgery / [facility] DEPARTMENT Diagnoses Colon cancer screening Procedures CONSULT TO GENERAL SURGERY OFFICE/OUTPATIENT NEW HIGH MDM 60 MINUTES Nora Mccartney APRN.NEUROPATHOLOGIST [address] [place] [address] Elizabeth Bland MD [address] [place] [address] Referral ID Status Reason Start Date Expiration Date Visits Requested Visits Authorized [id number] Authorized PCP Requested Referral 07/21/2024 07/21/2025 1 1 Additional Source Comments Source Comments (unrecognize d section and content) In the event this informatio n is protected by the Federal Confidentiality of Alcohol and Drug Abuse Patient Records regulations: The Federal rules restrict any use of the information to criminally investigate or prosecute any alcohol or drug abuse patient.[facility] the event this information is protected by the Federal Confidentiality of Alcohol and Drug Abuse Patient Records regulations: The Federal rules restrict any use of the information to criminally investigate or prosecute any alcohol or drug abuse patient.[facility] the event this information is protected by the Federal Confidentiality of Alcohol and Drug Abuse Patient Records regulations: The Federal rules restrict any use of the information to criminally investigate or prosecute any alcohol or drug abuse patient.[facility] the event this information is protected by the Federal Confidentiality of Alcohol and Drug Abuse Patient Records regulations: The Federal rules restrict any use of the information to criminally investigate or prosecute any alcohol or drug abuse patient.[facility] the event this information is protected by the Federal Confidentiality of Alcohol and Drug Abuse Patient Records regulations: The Federal rules restrict any use of the information to criminally investigate or prosecute any alcohol or drug abuse patient.[facility] the event this information is protected by the Federal Confidentiality of Alcohol and Drug Abuse Patient Records regulations: The Federal rules restrict any use of the information to criminally investigate or prosecute any alcohol or drug abuse patient.[facility] the event this information is protected by the Federal Confidentiality of Alcohol and Drug Abuse Patient Records regulations: The Federal rules restrict any use of the information to criminally investigate or prosecute any alcohol or drug abuse patient.[facility] the event this information is protected by the Federal Confidentiality of Alcohol and Drug Abuse Patient Records regulations: The Federal rules restrict any use of the information to criminally investigate or prosecute any alcohol or drug abuse patient.[facility] the event this information is protected by the Federal Confidentiality of Alcohol and Drug Abuse Patient Records regulations: The Federal rules restrict any use of the information to criminally investigate or prosecute any alcohol or drug abuse patient.[facility] the event this information is protected by the Federal Confidentiality of Alcohol and Drug Abuse Patient Records regulations: The Federal rules restrict any use of the information to criminally investigate or prosecute any alcohol or drug abuse patient.[facility] the event this information is protected by the Federal Confidentiality of Alcohol and Drug Abuse Patient Records regulations: The Federal rules restrict any use of the information to criminally investigate or prosecute any alcohol or drug abuse patient.[facility] the event this information is protected by the Federal Confidentiality of Alcohol and Drug Abuse Patient Records regulations: The Federal rules restrict any use of the information to criminally investigate or prosecute any alcohol or drug abuse patient.[facility] the event this information is protected by the Federal Confidentiality of Alcohol and Drug Abuse Patient Records regulations: The Federal rules restrict any use of the information to criminally investigate or prosecute any alcohol or drug abuse patient.[facility] the event this information is protected by the Federal Confidentiality of Alcohol and Drug Abuse Patient Records regulations: The Federal rules restrict any use of the information to criminally investigate or prosecute any alcohol or drug abuse patient.[facility] the event this information is protected by the Federal Confidentiality of Alcohol and Drug Abuse Patient Records regulations: The Federal rules restrict any use of the information to criminally investigate or prosecute any alcohol or drug abuse patient.[facility] the event this information is protected by the Federal Confidentiality of Alcohol and Drug Abuse Patient Records regulations: The Federal rules restrict any use of the information to criminally investigate or prosecute any alcohol or drug abuse patient.[facility] the event this information is protected by the Federal Confidentiality of Alcohol and Drug Abuse Patient Records regulations: The Federal rules restrict any use of the information to criminally investigate or prosecute any alcohol or drug abuse patient.[facility] Hospital[facility] the event this information is protected by the Federal Confidentiality of Alcohol and Drug Abuse Patient Records regulations: The Federal rules restrict any use of the information to criminally investigate or prosecute any alcohol or drug abuse patient.[facility] Reason for Visit (unrecogniz ed section and content) Reason Comments Blurred Vision Both Eyes Specialty Diagnoses / Procedures Referred By Geoffrey t Referred To Contact Internal Medicine / [facility] Diagnoses fatigue, eyes feel heavy, congestion x 5 days Procedures EST SAME DAY [facility] [address] [place] [address] Referral ID Status Reason Start Date Expiration Date Visits Requested Visits Authorized [id number] Authorized Patient Cleared - Qualified 100% FAS 02/05/2024 05/05/2024 99 99 Reason Comments Medication Problem patient out of ateno lol and claritin, left leg pain dx with arthritis x 2 years Reason Comments Rash Rash on arms and bojorquez ds-itchy and left knee pain x 1 day Reason Comments Head Congestion Cough, L ear pain, S T, runny nose x4 days Reason Comments Results Reason Comments Cough Cough and bodyaches- positive COVID 2 weeks ago Reason Comments Nasal Congestion Congestion, fatigue, sneezing and head and eyes feel heavy x 5 days Reason Comments Establish Care Specialty Diagnoses / Procedures Referred By Contac t Referred To Contact Family Medicine / FAMILY MEDICINE Diagnoses new pt Procedures 4C Nora Ivory, AUTOMATIC LINE SET UP MECHANIC.[address] [address] Nora Mccartney, AUTOMATIC LINE SET UP MECHANIC.[address] [address] Referral ID Status Reason Start Date Expiration Date Visits Requested Visits Authorized [id number] Authorized Patient Cleared - Qualified 100% FAS 02/21/2024 05/21/2024 99 99 Reason Comments Headache Bodyaches x last nig ht Specialty Diagnoses / Procedures Referred By Contac t Referred To Contact Family Medicine / FAMILY MEDICINE Diagnoses new pt Procedures 4C Nora Ivory, AUTOMATIC LINE SET UP MECHANIC.[facility] [address] [place] [address] Nora Mccartney, AUTOMATIC LINE SET UP MECHANIC.[address] [address] Reason Onset Date Comments Return Provider Call 03/30/2024 Reason Comments Lab Orders Reason Onset Date Comments ED [facility]RE[facility] Reason Onset Date Comments Refill Request 07/09/2024 Reason Comments Refill Request Depression Pt states dose is wo rking Specialty Diagnoses / Procedures Referred By Geoffrey t Referred To Contact Diagnoses primary care Procedures OFFICE CONSULT NEW/EST 20 MIN Nora Mccartney, AUTOMATIC LINE SET UP MECHANIC.NEUROPATHOLOGIST [address] [place] [address] [place] [address] Referral ID Status Reason Start Date Expiration Date Visits Requested Visits Authorized [id number] Authorized Patient Cleared - Qualified 100% FAS 07/09/2024 10/07/2024 99 99 Care Teams (unrecognized sec tion and content) Art Critic Relationship Specialty Start Date End Date Cassius Kilpatrick Thor PCP - General Gerontology 03/15/18 Art Critic Relationship Specialty Start Date End Date Cailin Steele DO [address] [place] [address] PCP - General Family Medicine 02/23/23 Art Critic Relationship Specialty Start Date End Date Cailin Steele DO [address] [place] [address] PCP - General Family Medicine 02/23/23 Art Critic Relationship Specialty Start Date End Date Cailin Steele DO [address] [place] [address] PCP - General Family Medicine 02/23/23 Art Critic Relationship Specialty Start Date End Date Cailin Steele DO [address] [place] [address] PCP - General Family Medicine 02/23/23 Art Critic Relationship Specialty Start Date End Date Cailin Steele DO [address] [address] [place] [address] PCP - General Family Medicine 02/23/23 Art Critic Relationship Specialty Start Date End Date Cailin Steele DO [address] [place] [address] PCP - General Family Medicine 02/23/23 Art Critic Relationship Specialty Start Date End Date Nora Mccartney, AUTOMATIC LINE SET UP MECHANIC.NEUROPATHOLOGIST [address] [place] [address] PCP - General Family Medicine 02/21/24 Art Critic Relationship Specialty Start Date End Date Nora Mccartney, AUTOMATIC LINE SET UP MECHANIC.NEUROPATHOLOGIST [address] [place] [address] PCP - General Family Medicine 02/21/24 Art Critic Relationship Specialty Start Date End Date Nora Mccartney, AUTOMATIC LINE SET UP MECHANIC.NEUROPATHOLOGIST [address] [place] [address] PCP - General Family Medicine 02/21/24 Art Critic Relationship Specialty Start Date End Date Nora Mccartney, AUTOMATIC LINE SET UP MECHANIC.NEUROPATHOLOGIST [address] [place] [address] PCP - General Family Medicine 02/21/24 Art Critic Relationship Specialty Start Date End Date Nora Mccartney, AUTOMATIC LINE SET UP MECHANIC.NEUROPATHOLOGIST [address] [place] [address] PCP - General Family Medicine 02/21/24 Art Critic Relationship Specialty Start Date End Date Nora Mccartney, AUTOMATIC LINE SET UP MECHANIC.NEUROPATHOLOGIST [address] [place] [address] PCP - General Family Medicine 02/21/24 Art Critic Relationship Specialty Start Date End Date Nora Mccartney, AUTOMATIC LINE SET UP MECHANIC.NEUROPATHOLOGIST [address] [place], [place] [phone] PCP - General Family Medicine 02/21/24 Art Critic Relationship Specialty Start Date End Date Nora Mccartney, AUTOMATIC LINE SET UP MECHANIC.NEUROPATHOLOGIST [address] [facility] [place] [place] [phone] PCP - General Family Medicine 02/21/24 Art Critic Relationship Specialty Start Date End Date Cailin Steele DO [address] [place], [place] [id number] PCP - General Family Medicine 02/23/23 02/20/24 Art Critic Relationship Specialty Start Date End Date Nora Mccartney, AUTOMATIC LINE SET UP MECHANIC.NEUROPATHOLOGIST [address] [facility] [place] [place] [id number] PCP - General Family Medicine 02/21/24 Art Critic Relationship Specialty Start Date End Date Nora Mccartney, AUTOMATIC LINE SET UP MECHANIC.NEUROPATHOLOGIST [address] [facility] [place] [place] [phone] PCP - General Family Medicine 02/21/24 INFORMATION SOURCE (unrecogn ized section and content) DATE CREATED AUTHOR 03/30/2024 [facility] DATE CREATED AUTHOR AUTHOR'S ORGANIZ ATION 07/22/2024 [facility] FOR RECORDS PERTAINING TO PATIENTS WHO ARE OR HAVE BEEN ENROLLED IN A CHEMICAL DEPENDENCY/SUBSTANCEABUSE PROGRAM, SOME INFORMATION MAY BE OMITTED. This clinical summary was aggregated from multiple sources. Caution should be exercised in using it in the provision of clinical care. This summary normalizes information from multiple sources, and as a consequence, information in this document may materially change the coding, format and clinical context of patient data. In addition, data may be omitted in some cases. CLINICAL DECISIONS SHOULD BE BASED ON THE PRIMARY CLINICAL RECORDS. [facility], [facility]. provides no warranty or guarantee of the accuracy or completeness of information in this document.
--- NOTE | 2024-09-05 18:28 | PCM.HP.STD ---
HPI - General General Date of Admission: 09/05/24 Date of Service: 09/05/24 Chief Complaint: syncope HPI Narrative SUHAS ABURTO, is a 59 F who presented to the emergency department at [facility] on 09/05/2020 for due to an unresponsive episode. Patient reported that she was walking out in front of a store and was with the salesman and tripped on unlevel ground. She hit her knees and her shoulder and she stated that a store rubber stamp die inspector told her to lie on the ground and she called the ambulance. It does not sound as if she hit her head. On presentation she was complaining of some right shoulder discomfort, right knee pain and some left hip pain. She did not indicate she hit her head. However it was reported that she was very out of it and appeared awake but not interactive. Blood sugar per EMS was 99 but her initial blood pressure was 200/100 and her pupils were sluggish at that time. By the time of arrival she was answering questions and had no complaints. She denied any occurrence of chest pain or shortness of breath. She has no cardiac history and states she has no family cardiac history. She is a lifelong non-smoker. She does have a robust family history of coronary disease in both her brothers. Vital signs on presentation the emergency department showed temperature 97.7, heart rate 74, respiratory rate 16, blood pressure was 123/102 and pulse ox was 99% on room air. CBC showed a mild leukocytosis with white count of 11.2 but was otherwise unremarkable. Coags are normal. Chemistry panel was unremarkable. Lactic acid was 1.4. Liver function was normal. Initial troponin was 9 but repeat troponin was 94. EKG showed sinus rhythm with no ST-T wave changes concerning for acute ischemia and normal intervals. CT of the brain was normal. Chest x-ray was negative for any acute findings. 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 Given her unresponsive episode and troponin bump it was felt prudent to admit her to the hospital. [facility] Medical History Anxiety and depression Osteoarthritis of left knee Cataract Arthritis GERD (gastroesophageal reflux disease) Vitamin D deficiency Overweight Anxiety Depression Hyperlipemia Anemia Hypertension Abnormal EKG Chest pain Home Medications ?Medication ?Instructions ?Recorded ?Last Taken ?Type ascorbic acid (vitamin C) 500 mg 500 mg PO DAILY 12/29/19 09/04/24 History tablet acetaminophen 500 mg tablet 500 - 1,000 mg (1 - 2 x 500 mg) PO 07/11/22 Unknown Rx TID-QID PRN fever or pain #60 tabs atenolol 25 mg tablet 25 mg PO QDAY #30 tabs 01/08/24 09/04/24 Rx cholecalciferol (vitamin D3) 25 1,000 unit PO QDAY #30 caps 01/08/24 09/04/24 Rx mcg (1,000 unit) capsule loratadine 10 mg tablet 10 mg PO QDAY PRN allergy symptoms 01/08/24 09/04/24 Rx #30 tabs ibuprofen 600 mg tablet 600 mg PO TID-QID PRN pain #30 tabs 06/17/24 09/05/24 Rx fluoxetine 20 mg capsule 20 mg PO DAILY 09/05/24 09/04/24 History Allergy/AdvReac Type Severity Reaction Status Date / Time atorvastatin (From Lipitor) Allergy Severe Bad skin Verified 09/05/24 14:12 reaction Sulfa (Sulfonamide Allergy Unknown Verified 09/05/24 14:12 Antibiotics) Family History Brother , age 55 or 56 Myocardial infarction Sudden cardiac Brother , 55 or 56 , from liver failure CAD (coronary artery disease) S/P CABG (coronary artery bypass graft) Liver failure Mother Cancer throat Surgical History History of wisdom tooth extraction, class IV edentulism History of Social History household members: family number of children: 3 current occupational status: unemployed pets and animals: No other: Patient has 1 child and 2 stepchildren Smoking Status: Never smoker alcohol intake: never substance use type: does not use caffeine: Yes what type of physical activity do you participate in: none seatbelt use: always do you feel safe at home: Yes additional social history: - Ragvinder ROS Constitutional Constitutional: Denies anorexia, change in weight, chills, fatigue, fever(s), malaise, night sweats, weakness or other Eyes Eyes: Denies blurry vision, change in eye color, change in vision, discharge from eye(s), double vision, erythema, eye pain, loss of vision or other ENT HEENT: Denies abnormal hearing, dysphagia, ear pain, epistaxis, headache(s), hearing loss, nasal congestion, nasal discharge, post nasal drip, sinus pressure, sore throat or other Cardiovascular Cardiovascular: Denies chest pain, claudication, dyspnea on exertion, edema, lightheadedness, orthopnea, palpitations, paroxysmal nocturnal dyspnea, rapid heart rate, syncope or other Respiratory/Chest Respiratory/Chest: Denies cough, dyspnea, excessive phlegm production, hemoptysis, productive cough, shortness of breath at rest, shortness of breath with exertion, wheezing or other Gastrointestinal Gastrointestinal: Denies abdominal pain, coffee ground emesis, constipation, diarrhea, dyspepsia, hematemesis, hematochezia, loose stools, melena, nausea, vomiting or other Genitourinary Genitourinary: Denies burning urination, difficulty urinating, dysuria, hematuria, nocturia, urinary frequency, urinary hesitancy, urinary incontinence, urinary urgency or other Musculoskeletal Musculoskeletal: Reports joint pain, joint stiffness and other Details: Complains of mild pain in right shoulder, right knee, and left hip Neurologic Neurologic: Denies abnormal gait, abnormal speech, confusion, disequilibrium, dizziness, focal weakness, headache(s), numbness, paresthesias, seizure-like activity, seizures, syncope, tingling, tremor(s) or other Psychiatric Psychiatric: Denies anxiety, depression, homicidal ideation, suicidal ideation or other Endocrine Endocrinology: Denies change in body appearance, cold intolerance, excessive sweating, heat intolerance, polydipsia, polyuria or other Hematologic/Lymphatic Hematologic/Lymphatic: Denies anemia, easy bleeding, easy bruising, lymphadenopathy or other Allergic/Immunologic Allergic/Immunologic: Denies rhinitis, hives, eczemia, asthma or other Vital Signs Vital Signs Vital Signs: 09/05/24 14:08 09/05/24 14:33 09/05/24 15:07 Temperature 97.7 F L Temperature Source Oral Pulse Rate 74 59 L Respiratory Rate 16 18 Respiratory Pattern Tachypnea Blood Pressure 123/102 H 166/82 H Blood Pressure Mean 109 110 Pulse Ox 99 99 Oxygen Delivery Method Room Air Room Air 09/05/24 16:00 09/05/24 17:00 09/05/24 18:00 Temperature Temperature Source Pulse Rate 70 64 74 Respiratory Rate 17 16 16 Respiratory Pattern Blood Pressure 140/79 H 121/81 H 163/80 H Blood Pressure Mean 99 94 107 Pulse Ox 98 99 99 Oxygen Delivery Method Room Air Room Air Room Air Weight Weight: 63.9 kg Body Mass Index (BMI) 27.5 Results Lab / Micro Data 09/05/24 14:11 09/05/24 14:11 Labs: Laboratory Results - last 24 hr 09/05/24 14:11: WBC 11.2 H, RBC 4.41, Hgb 12.1, Hct 37.2, MCV 84.4, MCH 27.4, MCHC 32.5, RDW Std Deviation 40.6, RDW Coeff of Jazmin 13.2, Plt Count 393, MPV 9.3, Immature Gran % (Auto) 0.800, Neut % (Auto) 40.4 L, Lymph % (Auto) 46.7 H, Rusk % (Auto) 8.2, Eos % (Auto) 3.0, Baso % (Auto) 0.9, Absolute Neuts (auto) 4.5, Absolute Lymphs (auto) 5.23 H, Nucleated RBC % 0, Differential Comment COMMENT, Sodium 136, Potassium 3.7, Chloride 106, Carbon Dioxide 22.0, Anion Gap 7, BUN 14, Creatinine 0.78, Estim Creat Clear Calc 64.80, Est GFR (MDRD) Af Amer 98, Est GFR (MDRD) Non-Af 81, BUN/Creatinine Ratio 18.1, Glucose 99, Lactic Acid 1.4, Calcium 9.5, Total Bilirubin 0.20, AST 22, ALT 25, Alkaline Phosphatase 85, Troponin I High Sens 9, Total Protein 7.9, Albumin 3.7, Globulin 4.2, Albumin/Globulin Ratio 0.9 09/05/24 15:03: Urine Color Yellow, Urine Clarity Clear, Urine pH 6.0, Ur Specific Hudson 1.010, Urine Protein Negative, Urine Glucose (UA) Normal, Urine Ketones Negative, Urine Occult Blood Negative, Urine Nitrite Negative, Urine Bilirubin Negative, Urine Urobilinogen Normal, Ur Leukocyte Esterase Negative, Urine RBC 0 SEEN, Urine WBC 0 SEEN, Ur Squamous Epith Cells 0-5 SEEN, Urine Bacteria 0 SEEN, Urine Mucus RARE 09/05/24 15:09: PT 12.9, INR 1.0, APTT 25.8 09/05/24 16:32: Troponin I High Sens 94 H Rhythm Strip Rhythm Strip: Sinus Rhythm Rate: 71 Ectopy: None Imaging Radiology Impression Brain CT 09/05/24 14:14 IMPRESSION: Normal unenhanced CT scan of the brain. Electronically Signed: Bradley Ferrara MD at 14:55 EST , Chest X-Ray 09/05/24 14:45 IMPRESSION: Normal x-ray examination of the chest. Electronically Signed: Bradley Ferrara MD at 15:08 EST , Hip/Pelvis X-Ray 09/05/24 14:45 IMPRESSION: Moderate degree of osteoarthritis of both hip joints. Electronically Signed: Bradley Ferrara MD at 15:07 EST , Assessment & Plan Assessment/Plan (1) Elevated troponin I level: (2) Altered mental status: PLAN: Plan Altered mental status -Etiology is unclear If and CT of the brain is unremarkable If and does not sound seizure-like so no EEG for now -Continue to monitor on telemetry for any cardiac arrhythmias and may need to go home with an event monitor -toxicology screen is unremarkable -UA is unremarkable -Check and TSH -Mental status is now back to baseline per daughter Troponin elevation -Initial troponin was 9 with a repeat of 94 -Asymptomatic with regards to chest pain or shortness of breath -Will cycle cardiac enzymes -start heparin drip -Check echocardiogram -Check a.m. lipid panel -Start aspirin 81 mg daily -Patient has intolerance to atorvastatin with a skin reaction so will not start statin at this time -start low-dose metoprolol 25 mg p.o. twice daily -Cardiology is consulted Status post fall -Mechanical fall tripping over uneven sidewalk -No need for PT and OT at this time -No deformity and patient only with mild pain currently -As needed Tylenol and oxycodone available Hypertension -Start metoprolol -Hold atenolol Vitamin D deficiency -Continue vitamin D supplementation Seasonal allergies -Continue home as needed loratadine Anxiety/depression -Continue home fluoxetine DVT prophylaxis -On heparin drip for now CODE STATUS Full code Charges/Coding Visit Charges Inpatient E&M: 98874 Init Hosp L2
--- NOTE | 2024-09-05 18:38 | EKG12_ITS ---
Test Reason : NSTEMI Blood Pressure : */* mmHG Vent. Rate : 77 BPM Atrial Rate : 77 BPM P-R Int : 162 ms QRS Dur : 86 ms QT Int : 374 ms P-R-T Axes : 59 -16 24 degrees QTcB Int : 423 ms Normal sinus rhythm Minimal voltage criteria for LVH, may be normal variant ( R in aVL ) Borderline ECG When compared with ECG of 05-Sep-2024 14:20, MANUAL COMPARISON REQUIRED DATA IS UNCONFIRMED Confirmed by Baltazar Hoang ([id number]), commercial production editor DANG MCCAIN ([id number]) on 09/08/2024 9:58:05 AM Referred By: Confirmed By: Baltazar Hoang
[2024-09-05 18:47] LABS: Amphetamine Urine VISTA NEGATIVE (<1000 ng/mL); Barbiturate Urine VISTA NEGATIVE (< 200 ng/mL); Benzodiazepine Urine VISTA NEGATIVE (< 200 ng/mL); Cocaine Urine VISTA NEGATIVE (< 300 ng/mL); Ecstacy Urine VISTA NEGATIVE (< 500 ng/mL); Methadone Urine VISTA NEGATIVE (< 300 ng/mL); PCP Urine VISTA NEGATIVE (< 25 ng/mL); THC Urine VISTA NEGATIVE (< 50 ng/mL); Vista UDS pH Range 5
--- OUTSIDE RECORDS SUMMARY | 2024-09-05 19:09 | XMS RPT_ITS | CCD ---
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 (ONE CAPSULE) FOR VITAMIN D DEFICIENCY Take 1 capsule by mo [facility] once daily. FLUoxetine 20 mg oral capsule [...] skye once daily. TAKE ONE TABLET BY [facility] ONCE DAILY predniSONE 20 mg oral tablet [...] on above: Take 1 capsule by mo [facility] every 8 hours. ferrous sulfate 325 mg [...] on above: Take 1 capsule by mo [facility] once daily. Before morning meal phenylephrine hydrochloride [...] Test Name Value Interpretation Reference Range Facility [facility] 07-21-2024 OV Office Visit (AGFAMPLE) SUHAS ARCOS ([id number]) 1965 F Date Time Provider Department 07/21/24 9:20 AM NORA MCCARTNEY During your visit today, we recorded the following information about you: Temperature Pulse Blood pressure Weight 98.4 degrees 72/minute 122/60 62.1 kg Height 1.524 m Nora Mccartney APRN.QA INTERNSHIP 07/21/2024 10:35 AM Signed CHIEF COMPLAINT: Suhas [...] of Onset Cancer Mother throat Heart Brother MA Diabetes Brother Coronary Artery Disease Brother MA Current Outpatient Medications Medication Sig Dispense Refill FLUoxetine (PROZAC) 20 mg capsule Take 1 capsule by mouth once daily. Take 1 capsule by mouth once daily 90 capsule 1 loratadine (ALLERGY RELIEF, LORATADINE,) 10 mg tablet Take 1 tablet by mouth once daily. 30 tablet 2 atenolol (TENORMIN) 25 mg tablet Take 1 tab (more content not included)... Normal [facility] C[facility] Telephone (AGFAMPLE) SUHAS ARCOS ([id number]) 1965 F Date Time Provider Department 05/30/24 NORA MCCARTNEY During your visit today, we recorded the following information about you: Melissa Hernandez MA 05/30/2024 7:47 AM Signed ----- Message from Melissa Hernandez MA sent at 02/28/2024 3:53 PM EDT ----- CBC- recheck in 3 months. Nora Mccartney APRN.QA INTERNSHIP 07/07/2024 4:29 PM Signed Postpone until next appointment. Allergies As of Date: 05/30/2024 Noted Allergy Reaction SULFA (SULFONAMIDE ANTIBIOTICS) 10/19/2006 Comments: itching, rash Date Reviewed: 03/29/2024 Reviewed by: Rut Watkins MA - Fully Assessed Reason for Visit: Lab Orders [5238] Prescriptions as of 07/07/2024 - atenolol (TENORMIN) [...] of func*10/04/2010 11/16/2015 ASCUS on Pap smear [LXO8147] 08/23/2011 Blood in stool [K92.1] 08/31/2011 03/24/2014 Anemia, unspecified [D64.9] 08/31/2011 06/28/2016 Iron deficiency anemia [D50.9] 09/28/2011 Neck pain [M54.2] 01/23/2013 06/28/2016 Cervicalgia [M54.2] 11/06/2013 Adjustment disorder with mixed anxiety and depr*12/29/2013 Psychic factors associated with diseases classi*12/29/2013 Sciatica [M54.30] 02/23/2015 Tension-type headache, not intractable [G44.209]01/27/2016 Abnormal mammogram [R92.8] 07/06/2017 Encounter Status:Closed by MELISSA HERNANDEZ on 05/30/24 [facility] ([id number]) 1965 F Date Time Provider Department 03/30/[address] [facility] During your visit today, we recorded the [...] of func*10/04/2010 11/16/2015 ASCUS on Pap smear [[id number]] 08/23/2011 Blood in stool [K92.1] 08/31/2011 03/24/2014 Anemia, unspecified [D64.9] 08/31/2011 06/28/2016 Iron deficiency anemia [D50.9] 09/28/2011 Neck pain [M54.2] 01/23/2013 06/28/2016 Cervicalgia [M54.2] 11/06/2013 Adjustment disorder with mixed anxiety and depr*12/29/2013 Psychic factors associated with diseases classi*12/29/2013 Sciatica [M54.30] 02/23/2015 Tension-type headache, not intractable [G44.209]01/27/2016 Abnormal mammogram [R92.8] 07/06/2017 Encounter Status:Closed by YEFRI CHESTER on 03/30/24 Normal [facility] CNOVon 03-29-2024 CNOV Office Visit (UCWSTR ) SUHAS ARCOS ([id number]) 1965 F Date Time Provider Department 03/29/24 [...] PM Signed This note was created using Thermodynamic Process Control. Subjective Suhas Arcos is a 58 year [...] of Onset Cancer Mother throat Heart Brother MA Diabetes Brother Coronary Artery Disease Brother MA Social History Tobacco Use Smoking status: Never [...] higher level (more content not included)... Normal [facility] COVID AND INFLUENZA A/B AND RSV NAAT, ROUTINEon 03-29-2024 SARS-CoV-2 (COVID-19) RNA LILIBETH+probe Ql (Unsp spec) COVID 19 RESULT: Not detected The method used is RT-PCR or an equivalent NAAT method. Reference Range (the expected result in uninfected individuals): Not detected INFLUENZA A PCR: Not detected INFLUENZA B PCR: Not detected RSV PCR: Not detected Normal [facility] Comment on above: Performed By: #### C VFLRS ####[facility] LABCLIA [id number] [address] [address] [facility] Nidhi 02-27-2024 CUR[place] Telephone (AGFAMPLE) SUHAS ARCOS ([id number]) 1965 F Date Time Provider Department 02/27/24 NORA MCCARTNEY During your visit today, we recorded the following information about you: Nora Mccartney APRN.QA INTERNSHIP 02/27/2024 4:55 PM Signed Please call the [...] Date Reviewed: 02/21/2024 Reviewed by: Nora Mccartney APRN.[facility] - Fully Assessed Reason for [...] of func*10/04/2010 11/16/2015 ASCUS on Pap smear [[id number]] 08/23/2011 Blood in stool [K92.1] 08/31/2011 03/24/2014 Anemia, unspecified [D64.9] 08/31/2011 06/28/2016 Iron deficiency anemia [D50.9] 09/28/2011 Neck pain [M54.2] 01/23/2013 06/28/2016 Cervicalgia [M54.2] 11/06/2013 Adjustment disorder with mixed anxiety and depr*12/29/2013 Psychic factors associated with diseases classi*12/29/2013 Sciatica [M54.30] 02/23/2015 Tension-type headache, not intractable [G44.209]01/27/2016 Abnormal mammogram [R92.8] 07/06/2017 Encounter Status:Closed by MELISSA HERNANDEZ on 02/28/24 Normal [facility] 25(OH)D3 [facility] 2023 25-hydroxyvitamin D3 [Mass/Vol] 40.2 ng/mL Normal 31.0-80.0 [facility] Comment on above: Order Comment: Speci men Type: BLOOD SPECIMENOrdering Facility: [facility] Address: [address] [place] [address] Result Comment: Clas sification of 25 [place] Vitamin D status: Deficiency/Insufficiency: < or = 30 ng/ml. Sufficiency/Optimal Levels: 31-80 ng/mL Toxicity: > 100 ng/mL. Test performed by chemiluminescent immunoassay. Performed By: #### 1 989-3 ####[facility] LABCLIA [id number] [place] [address] [place] CBC W Auto Differential pane l (Bld)on 02-22-2024 Basophils (Bld) [#/Vol] 0.08 10*3/uL Normal <0.11 [facility] Comment on above: Order Comment: Speci men Type: BLOOD SPECIMENOrdering Facility: [facility] Address: [address] [place] [address] Performed By: #### 5 7021-8 ####[facility] LABCLIA [id number] [place] [address] [place] Basophils/100 WBC (Bld) 0.9 % Normal [facility] Comment on above: Order Comment: Speci men Type: BLOOD SPECIMENOrdering Facility: [facility] Address: [address] [place] [address] Performed By: #### 5 7021-8 ####[facility] LABCLIA [id number] [place] [address] [place] Differential cell count method Nom (Bld) Auto Normal [facility] Comment on above: Order Comment: Speci men Type: BLOOD SPECIMENOrdering Facility: [facility] Address: [address] [place] [address] Performed By: #### 5 7021-8 ####[facility] LABCLIA [id number] [place] [address] [place] Eosinophils (Bld) [#/Vol] 0.43 10*3/uL Normal <0.46 [facility] Comment on above: Order Comment: Speci men Type: BLOOD SPECIMENOrdering Facility: [facility] Address: [address] [place] [address] Performed By: #### 5 7021-8 ####[facility] LABCLIA [id number] [place] [address] [place] Eosinophils/100 WBC (Bld) 4.7 % Normal [facility] Comment on above: Order Comment: Speci men Type: BLOOD SPECIMENOrdering Facility: [facility] Address: [address] [place] [address] Performed By: #### 5 7021-8 ####[facility] LABIA [id number] [place] [address] [place] Erythrocyte distribution width (RBC) [Ratio] 13.3 % Normal 11.5-15.0 [facility] Comment on above: Order Comment: Speci men Type: BLOOD SPECIMENOrdering Facility: [facility] Address: [address] [place] [address] Performed By: #### 5 7021-8 ####[facility] LABIA [id number] [place] [address] [place] Hematocrit (Bld) [Volume fraction] 39.6 % Normal 36.0-46.0 [facility] Comment on above: Order Comment: Speci men Type: BLOOD SPECIMENOrdering Facility: [facility] Address: [address] [place] [address] Performed By: #### 5 7021-8 ####[facility] LABIA [id number] [place] [address] [place] Hemoglobin (Bld) [Mass/Vol] 12.4 g/dL Normal 11.5-15.5 [facility] Comment on above: Order Comment: Speci men Type: BLOOD SPECIMENOrdering Facility: [facility] Address: [address] [place] [address] Performed By: #### 5 7021-8 ####[facility] LABIA [id number] [place] [address] [place] Immature granulocytes (Bld) [#/Vol] 0.04 10*3/uL Normal <0.10 [facility] Comment on above: Order Comment: Speci men Type: BLOOD SPECIMENOrdering Facility: [facility] Address: [address] [place] [address] Performed By: #### 5 7021-8 ####[facility] LABCLIA [id number] [place] [address] [place] Immature granulocytes/100 WBC (Bld) 0.4 % Normal [facility] Comment on above: Order Comment: Speci men Type: BLOOD SPECIMENOrdering Facility: [facility] Address: [address] [place] [address] Performed By: #### 5 7021-8 ####[facility] LABCLIA [id number] [place] [address] [place] Lymphocytes (Bld) [#/Vol] 3.96 10*3/uL Normal 1.00-4.00 [facility] Comment on above: Order Comment: Speci men Type: BLOOD SPECIMENOrdering Facility: [facility] Address: [address] [place] [address] Performed By: #### 5 7021-8 ####[facility] LABCLIA [id number] [place] [address] [place] Lymphocytes/100 WBC (Bld) 43.7 % Normal [facility] Comment on above: Order Comment: Speci men Type: BLOOD SPECIMENOrdering Facility: [facility] Address: [address] [place] [address] Performed By: #### 5 7021-8 ####[facility] LABCLIA [id number] [place] [address] [place] MCH (RBC) [Entitic mass] 27.6 pg Normal 26.0-34.0 [facility] Comment on above: Order Comment: Speci men Type: BLOOD SPECIMENOrdering Facility: [facility] Address: [address] [place] [address] Performed By: #### 5 7021-8 ####[facility] LABCLIA [id number] [place] [address] [place] MCHC (RBC) [Mass/Vol] 31.3 g/dL Normal 30.5-36.0 [facility] Comment on above: Order Comment: Speci men Type: BLOOD SPECIMENOrdering Facility: [facility] Address: [address] [place] [address] Performed By: #### 5 7021-8 ####[facility] LABIA [id number] [place] [address] [place] MCV (RBC) [Entitic vol] 88.2 fL Normal 80.0-100.0 [facility] Comment on above: Order Comment: Speci men Type: BLOOD SPECIMENOrdering Facility: [facility] Address: [address] [place] [address] Performed By: #### 5 7021-8 ####[facility] LABIA [id number] [place] [address] [place] Monocytes (Bld) [#/Vol] 0.68 10*3/uL Normal <0.87 [facility] Comment on above: Order Comment: Speci men Type: BLOOD SPECIMENOrdering Facility: [facility] Address: [address] [place] [address] Performed By: #### 5 7021-8 ####[facility] LABIA [id number] [place] [address] [place] Monocytes/100 WBC (Bld) 7.5 % Normal [facility] Comment on above: Order Comment: Speci men Type: BLOOD SPECIMENOrdering Facility: [facility] Address: [address] [place] [address] Performed By: #### 5 7021-8 ####[facility] LABCLIA [id number] [place] [address] [place] Neutrophils (Bld) [#/Vol] 3.88 10*3/uL Normal 1.45-7.50 [facility] Comment on above: Order Comment: Speci men Type: BLOOD SPECIMENOrdering Facility: [facility] Address: [address] [place] [address] Performed By: #### 5 7021-8 ####[facility] LABCLIA [id number] [place] [address] [place] Neutrophils/100 WBC (Bld) 42.8 % Normal [facility] Comment on above: Order Comment: Speci men Type: BLOOD SPECIMENOrdering Facility: [facility] Address: [address] [place] [address] Performed By: #### 5 7021-8 ####[facility] LABCLIA [id number] [place] [address] [place] Nucleated RBC (Bld) [#/Vol] 10*3/uL Normal <0.01 [facility] Comment on above: Order Comment: Speci men Type: BLOOD SPECIMENOrdering Facility: [facility] Address: [address] [place] [address] Performed By: #### 5 7021-8 ####[facility] LABIA [id number] [place] [address] [place] Nucleated RBC/100 WBC (Bld) [Ratio] 0.0 /100 WBC Normal [facility] Comment on above: Order Comment: Speci men Type: BLOOD SPECIMENOrdering Facility: [facility] Address: [address] [place] [address] Performed By: #### 5 7021-8 ####[facility] LABIA [id number] [place] [address] [place] Platelet mean volume (Bld) [Entitic vol] 9.6 fL Normal 9.0-12.7 [facility] Comment on above: Order Comment: Speci men Type: BLOOD SPECIMENOrdering Facility: [facility] Address: [address] [place] [address] Performed By: #### 5 7021-8 ####[facility] LABIA [id number] [place] [address] [place] Platelets (Bld) [#/Vol] 418 10*3/uL High 150-400 [facility] Comment on above: Order Comment: Speci men Type: BLOOD SPECIMENOrdering Facility: [facility] Address: [address] [place] [address] Performed By: #### 5 7021-8 ####[facility] LABCLIA [id number] [address] [address] [place] RBC (Bld) [#/Vol] 4.49 10*6/uL Normal 3.90-5.20 [facility] Comment on above: Order Comment: Speci men Type: BLOOD SPECIMENOrdering Facility: [facility] Address: [address] [place] [address] Performed By: #### 5 7021-8 ####[facility] LABCLIA [id number] [place] [address] [place] WBC (Bld) [#/Vol] 9.07 10*3/uL Normal 3.70-11.00 [facility] Comment on above: Order Comment: Speci men Type: BLOOD SPECIMENOrdering Facility: [facility] Address: [address] [place] [address] Performed By: #### 5 7021-8 ####[facility] LABCLIA [id number] [place] [address] [place] Comprehensive metabolic 2000 panelon 02-22-2024 Albumin [Mass/Vol] 4.1 g/dL Normal 3.9-4.9 [facility] Comment on above: Order Comment: Speci men Type: BLOOD SPECIMENOrdering Facility: [facility] Address: [address] [place] [address] Performed By: #### 2 4331-1, 3016-3, 52777-8 ####[facility] LABCLIA [id number] [place] [address] [place] ALP [Catalytic activity/Vol] 81 U/L Normal 34-123 [facility] Comment on above: Order Comment: Speci men Type: BLOOD SPECIMENOrdering Facility: [facility] Address: [address] [place] [id number] Performed By: #### 2 4331-1, 3015-3, ####[facility] LABCLIA [id number] [place] [id number] [place] ALT [Catalytic activity/Vol] 22 U/L Normal 7-38 [facility] Comment on above: Order Comment: Speci men Type: BLOOD SPECIMENOrdering Facility: [facility] Address: [address] [place] [address] Performed By: #### 2 4331-1, 3, ####[facility] LABIA [id number] [place] [address] [place] Anion gap [Moles/Vol] 11 mmol/L Normal 9-18 [facility] Comment on above: Order Comment: Speci men Type: BLOOD SPECIMENOrdering Facility: [facility] Address: [address] [place] [address] Performed By: #### 2 4331-1, 3, ####[facility] LABIA [id number] [place] [address] [place] AST [Catalytic activity/Vol] 30 U/L Normal 13-35 [facility] Comment on above: Order Comment: Speci men Type: BLOOD SPECIMENOrdering Facility: [facility] Address: [address] [id number] Performed By: #### 2 4331-1, 3, ####[facility] LABIA [id number] [place] [id number] [place] Bilirubin [Mass/Vol] 0.3 mg/dL Normal 0.2-1.3 [facility] Comment on above: Order Comment: Speci men Type: BLOOD SPECIMENOrdering Facility: [facility] Address: [address] [place] [address] Performed By: #### 2 4331-1, 3015-3, 42503-9 ####[facility] LABCLIA [id number] [address] [address] [place] Calcium [Mass/Vol] 9.7 mg/dL Normal 8.5-10.2 [facility] Comment on above: Order Comment: Speci men Type: BLOOD SPECIMENOrdering Facility: [facility] Address: [address] [place], [place] [address] Performed By: #### 2 4331-1, 3015-3, ####[facility] LABIA [id number] [place] [id number] [place] Chloride [Moles/Vol] 103 mmol/L Normal 97-105 [facility] Comment on above: Order Comment: Speci men Type: BLOOD SPECIMENOrdering Facility: [facility] Address: [address] [place], [place] [address] Performed By: #### 2 4331-1, 3015-3, ####[facility] LABIA [id number] [place] [id number] [place] CO2 [Moles/Vol] 24 mmol/L Normal 22-30 [facility] Comment on above: Order Comment: Speci men Type: BLOOD SPECIMENOrdering Facility: [facility] Address: [address] [place] [address] Performed By: #### 2 4331-1, 3015-3, 24483-3 ####[facility] LABIA [id number] [address] [address] [place] Creatinine [Mass/Vol] 0.73 mg/dL Normal 0.58-0.96 [facility] Comment on above: Order Comment: Speci men Type: BLOOD SPECIMENOrdering Facility: [facility] Address: [address] [place] [address] Performed By: #### 2 4331-1, 3015-3, 75663-8 ####[facility] LABIA [id number] [place] [address] [place] Creatinine and Glomerular filtration rate.predicted panel (S/P/Bld) 95 mL/min/1.73m??? Normal >=60 [facility] Comment on above: Order Comment: vAery luevano Type: BLOOD SPECIMENOrdering Facility: [facility] Address: [address] [place] [address] Result Comment: Violet mated Glomerular Filtration Rate [...] GFR. Performed By: #### 2 4331-1, 3016-3, 65319-9 ####[facility] LABIA [id number] [place] [address] [place] Glucose [Mass/Vol] 84 mg/dL Normal 74-99 [facility] Comment on above: Order Comment: Avery luevano Type: BLOOD SPECIMENOrdering Facility: [facility] Address: [address] [place] [address] Result Comment: The [place] Diabetes Association (ADA) provides guidance for cutoff [...] Standards of Medical Care in Diabetes 2016, [place] [employer]. Diabetes Care. 2016.39(Suppl 1). Performed By: #### 2 4331-1, 3016-3, ####[facility] LABCLIA [id number] [address] [address] [place] Potassium [Moles/Vol] 4.6 mmol/L Normal 3.7-5.1 [facility] Comment on above: Order Comment: Speci men Type: BLOOD SPECIMENOrdering Facility: [facility] Address: [address] [place] [address] Performed By: #### 2 4331-1, 3015-12, ####[facility] LABCLIA [id number] [address] [address] [place] Protein [Mass/Vol] 7.0 g/dL Normal 6.3-8.0 [facility] Comment on above: Order Comment: Speci men Type: BLOOD SPECIMENOrdering Facility: [facility] Address: [address] [place] [address] Performed By: #### 2 4331-1, 3015-12, ####[facility] LABCLIA [id number] [address] [address] [place] Sodium [Moles/Vol] 138 mmol/L Normal 136-144 [facility] Comment on above: Order Comment: Speci men Type: BLOOD SPECIMENOrdering Facility: [facility] Address: [address] [place] [address] Performed By: #### 2 4331-1, 3015-12, ####[facility] LABCLIA [id number] [address] [address] [place] Urea nitrogen [Mass/Vol] 13 mg/dL Normal 7-21 [facility] Comment on above: Order Comment: Speci men Type: BLOOD SPECIMENOrdering Facility: [facility] Address: [address] [place] [address] Performed By: #### 2 4331-1, 3015-12, ####[facility] LABCLIA [id number] [address] [place] HbA1c (Bld)on 02-22-2024 Average glucose Estimated from glycated hemoglobin (Bld) [Mass/Vol] 117 mg/dL Normal [facility] Comment on above: Order Comment: Avery luevano Type: BLOOD SPECIMENOrdering Facility: [facility] Address: [address] [place] [address] Result Comment: eAG: (Estimated average glucose) is a calculated value from HgbA1c and is territory account representative of the average blood glucose level in the last 2-3 month period. Performed By: #### 5 5454-3 ####[facility] LABCLIA [id number] [address] STATES OF [facility] HbA1c (Bld) [Mass fraction] 5.7 % High 4.3-5.6 [facility] Comment on above: Order Comment: Avery luevano Type: BLOOD SPECIMENOrdering Facility: [facility] Address: [address] [place] [address] Result Comment: [place] Diabetes Association guidelines indicate that patients with HgbA1c in the range 5.7-6.4% are at increased risk for development of diabetes, and intervention by lifestyle modification may be beneficial. HgbA1c greater or equal to 6.5% is considered diagnostic of diabetes. Performed By: #### 5 5454-3 ####[facility] LABCLIA [id number] [address] [place] Lipid 1996 panelon 4 Cholesterol [Mass/Vol] 209 mg/dL High <200 [facility] Comment on above: Order Comment: Avery luevano Type: BLOOD SPECIMENOrdering Facility: [facility] Address: [address] [place] [address] Result Comment: <200 mg/dL, Desirable 200-239 mg/dL, Borderline high >239 mg/dL, High Performed By: #### 2 4331-1, 3016-3, 80823-6 ####[facility] LABCLIA [id number] [address] [place] Cholesterol in HDL [Mass/Vol] 38 mg/dL Low >39 [facility] Comment on above: Order Comment: Speci men Type: BLOOD SPECIMENOrdering Facility: [facility] Address: [address] [place], [place] [address] Result Comment: 40-5 9 mg/dL, Acceptable >59 mg/dL, High: Negative risk factor for coronary heart disease <40 mg/dL, Low: Positive risk factor for coronary heart disease Performed By: #### 2 4331-1, 3015-3, ####[facility] LABCLIA [id number] [address] [place] Cholesterol in LDL [Mass/Vol] 134 mg/dL High <100 [facility] Comment on above: Order Comment: Avery bassem Type: BLOOD SPECIMENOrdering Facility: [facility] Address: [address] [place] [address] Result Comment: <100 mg/dL, Optimal 100-129 mg/dL, Near optimal/above optimal 130-159 mg/dL, Borderline high 160-189 mg/dL, High >189 mg/dL, Very high Secondary prevention optimal LDL Cholesterol levels are recommended to be < 70 mg/dL Performed By: #### 2 4331-1, 3015-12, ####[facility] LABCLIA [id number] [address] [place] Cholesterol in LDL/Cholesterol in HDL [Mass ratio] 3.53 {ratio} High <2.54 [facility] Comment on above: Order Comment: Charlai men Type: BLOOD SPECIMENOrdering Facility: [facility] Address: [address] [place] [address] Result Comment: Kwame pride: 1. National Cholesterol Education Program ATP III Guideline At-A-Glance Quick Desk Reference: National Heart, Lung, and Blood [place]. National Institutes of Health. 2001: NIH Publication No. 01-3305. 2. An International Atherosclerosis Society position paper: global recommendations for the management of dyslipidemia: executive summary, Atherosclerosis. 2014: 232(2):410-413. Performed By: #### 2 4331-1, 3015-3, ####[facility] LABCLIA [id number] [address] [address] [place] Cholesterol in VLDL [Mass/Vol] 37 mg/dL High <30 [facility] Comment on above: Order Comment: Speci men Type: BLOOD SPECIMENOrdering Facility: [facility] Address: [address] [place] [address] Performed By: #### 2 4331-1, 3, ####[facility] LABCLIA [id number] [place] [address] [place] Cholesterol non HDL [Mass/Vol] 171 mg/dL High <130 [facility] Comment on above: Order Comment: Speci men Type: BLOOD SPECIMENOrdering Facility: [facility] Address: [address] [place] [address] Result Comment: <130 mg/dL, Optimal 130-159 mg/dL, Near optimal/above optimal 160-189 mg/dL, Borderline high 190-219 mg/dL, High >219 mg/dL, Very high Secondary prevention optimal non HDL Cholesterol levels are recommended to be <100 mg/dL Performed By: #### 2 4331-1, 3015-3, ####[facility] LABCLIA [id number] [address] [address] [place] Cholesterol.total/Ch olesterol in HDL [Mass ratio] 5.50 {ratio} High <5.10 [facility] Comment on above: Order Comment: Speci men Type: BLOOD SPECIMENOrdering Facility: [facility] Address: [address] [place] [place] [id number] Performed By: #### 2 4331-1, 3015-3, ####[facility] LABCLIA [id number] [address] [address] [place] FASTING TIME 12 hrs Normal [facility] Comment on above: Order Comment: Speci men Type: BLOOD SPECIMENOrdering Facility: [facility] Address: [address] [place] [address] Performed By: #### 2 4331-1, 6-3, 49525-2 ####[facility] LABCLIA [id number] [place] [address] [place] Triglyceride [Mass/Vol] 184 mg/dL High <150 [facility] Comment on above: Order Comment: Speci men Type: BLOOD SPECIMENOrdering Facility: [facility] Address: [address] [place] [address] Result Comment: <150 mg/dL, Normal 150-199 mg/dL, Borderline high 200-499 mg/dL, High >499 mg/dL, Very high Performed By: #### 2 4331-1, 3016-3, 62781-1 ####[facility] LABCLIA [id number] [place] [address] [place] TSH SerPl-aCncon 02-22-2024 TSH Qn 2.930 m[IU]/L Normal 0.270-4.200 [facility] Comment on above: Order Comment: Speci men Type: BLOOD SPECIMENOrdering Facility: [facility] Address: [address] [place] [address] Performed By: #### 2 4331-1, 3016-3, 60900-1 ####[facility] LABCLIA [id number] [address] [place] CNOVon 02-21-2024 CNOV Office Visit (AGFAMPLE) SUHAS ARCOS ([id number]) 1965 F Date Time Provider Department 02/21/24 10:40 AM NORA MCCARTNEY During your visit today, we recorded the following information about you: Temperature Pulse Respiration Blood pressure 98 degrees 82/minute 16/minute 122/70 Weight Height 62.6 kg 1.524 m Nora Mccartney 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 02/21/2024 5:18 PM Signed [facility] Nora Mccartney 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 [address] [place] [address] Dept Dept. Visit Date: February 21, 2024 Ms.Jaswinder Arcso Date of : 1965 MRN/E #: [id number] Chief Complaint: Patient presents with: Establish Care [...] Brother Age of Onset: (Not Specified) Comment: [place] Problem: Diabetes Relation: Brother Age of Onset: (Not Specified) Problem: Coronary Artery Disease Relation: Brother Age of Onset: (Not Specified) Comment: MA ALLERGIES Allergen Reactions Sulfa (Sulfonamide * itching, [...] Normal rat (more content not included)... Normal [facility] CNOVon 02-05-2024 CNOV Office Visit (UCWSTR ) SUHAS ARCOS ([id number]) 1965 F Date Time Provider Department 02/05/24 4:[address] [facility] During your visit today, we recorded the following information about you: Temperature Pulse Respiration Blood pressure 97.2 degrees 79/minute 18/minute 126/76 Weight 62.9 kg Julissa Johnson PA 02/05/2024 4:59 PM Signed This note was created using Peppercornriter. Subjective Suhas Arcos is a 58 year [...] mi Diabetes Brother Coronary Artery Disease Brother MA Social History Tobacco Use Smoking status: Never [...] 10/19/2006 Comments: (more content not included)... Normal [facility] CNOVon 09-12-2023 CNOV Office Visit (UCWSTR ) SUHAS ARCOS ([id number]) 1965 F Date Time Provider Department 09/12/23 3:[address] [facility] During your visit today, we recorded the following information about you: Temperature Pulse Respiration Blood pressure 97.5 degrees 61/minute 18/minute 138/82 Weight 63.4 kg Julissa Johnson PA 09/12/2023 4:05 PM Signed This note was created using Peppercornriter. Subjective Suhas Arcos is a 58 year [...] mi Diabetes Brother Coronary Artery Disease Brother MA Social History Tobacco Use Smoking status: Never [...] sinusitis [J32.9, B96.89] Order(s):XR CHEST 2V FRONTAL/LAT [[id number] (more content not included)... Normal [facility] XR CHEST 2V FRONTAL/LATon XR CHEST 2V [...] the spine. IMPRESSION: No acute radiographic abnormality. Manager Helpdesk: [facility] Transcribe Date/Time: Sep 12 2023 3:49P Dictated by : JESSICA HU MD This examination was interpreted and the report reviewed and electronically signed by: JESSICA HU MD on Sep 12 2023 3:49PM EST [id number] Normal [facility] XR Chest PA and Lateralon IMPRESSION: No acute radiographic abnormality. Manager Helpdesk: [facility] Transcribe Date/Time: Sep 12 2023 3:49P [...] in the spine. DIVISION OF RADIOLOGY Provider, [facility] - 09/12/2023 * * *Final Report* * [...] spine. IMPRESSION IMPRESSION: No acute radiographic abnormality. Manager Helpdesk: PSCB Transcribe Date/Time: Sep 12 2023 3:49P Dictated by : JESSICA HU MD This examination was interpreted and the report reviewed and electronically signed by: JESSICA HU MD on Sep 12 2023 3:49PM EST [facility] Radiology Study observation (narrative) [facility] XR Chest PA and LateralOrder ed By: Ccf Provider on 09-12-2023 [facility] Nidhi 08-28-2023 [facility] SUHAS ARCOS ([id number]) 1965 F Date Time Provider Department 08/28/[address] [facility] During your visit today, we recorded the following information about you: Wen Muniz APRN.[employer] 08/28/2023 7:38 AM Signed Please notify that [...] of func*10/04/2010 11/16/2015 ASCUS on Pap smear [[id number]] 08/23/2011 Blood in stool [K92.1] 08/31/2011 03/24/2014 Anemia, unspecified [D64.9] 08/31/2011 06/28/2016 Iron deficiency anemia [D50.9] 09/28/2011 Neck pain [M54.2] 01/23/2013 06/28/2016 Cervicalgia [M54.2] 11/06/2013 Adjustment disorder with mixed anxiety and depr*12/29/2013 Psychic factors associated with diseases classi*12/29/2013 Sciatica [M54.30] 02/23/2015 Tension-type headache, not intractable [G44.209]01/27/2016 Abnormal mammogram [R92.8] 07/06/2017 Encounter Status:Closed by LIZZETH JACKSON on 08/28/23 [facility] CNOVon 08-27-2023 CNOV Office Visit (WSTR ) SUHAS ARCOS ([id number]) 1965 F Date Time Provider Department 08/27/23 12:[address] [facility] During your visit today, we recorded the [...] no wheezes or crackles, no increased [facility] 11/16/22: EST GFR - AA 104 mL/min [...] NAAT, ROUTINE - We will call in Taborlovid if positive. Julian Miguel MD Allergies As of Date: 08/27/2023 Noted Allergy Reaction SULFA (SULFONAMIDE ANTIBIOTICS) 10/19/2006 Comments: itching, rash Date Reviewed: 08/27/2023 Reviewed by: Rut Watkins MA - Fully Assessed Reason for Visit: Head Congestion [234] Cmt: Cough, L ear pain, ST, runny nose x4 days Primary Visit Diagnosis:URI, acute [J06.9] Order(s):COVID AND INFLUENZA A/B NAAT, ROUTINE [SQCOVFLU] Order #: [id number] FUTURE COVID AND INFLUENZA A/B NAAT, ROUTINE [SQCOVFLU] Order #: [id number]. #:[id number] Prescriptions as of 08/27/2023 - atenolol (TENORMIN) [...] of func*10/04/2010 11/16/2015 ASCUS on Pap smear [[id number]] 08/23/2011 Blood in stool [K92.1] 08/31/2011 03/24/2014 [...] on 11/14 (more content not included)... Normal [facility] FLUABV + SARS-CoV-2 Pnl Resp LILIBETH+prbon 08-27-2023 Influenza virus A and B RNA and SARS-CoV-2 (COVID-19) N gene panel LILIBETH+probe (Resp) COVID 19 RESULT: Not detected The method used is RT-PCR or an equivalent NAAT method. Reference Range (the expected result in uninfected individuals): Not detected INFLUENZA A PCR: Detected INFLUENZA B PCR: Not detected Abnormal [facility] Comment on above: Performed By: #### 9 5422-2 ####[facility] LABCLIA [id number] [place] [address] [place] Vital Signs Date Time Vital Sign Value Performing Clinician rKistyn villagran 07-21-2024 09:05-0400 Body height 152.4 cm 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: [facility] 07-21-2024 09:05-0400 Body mass index (BMI) [Ratio] 26.76 kg/m2 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: [facility] 07-21-2024 09:05-0400 Body temperature 98.4 [degF] 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: [facility] 07-21-2024 09:05-0400 Body weight 62.14 kg 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: [facility] 07-21-2024 09:05-0400 Diastolic blood pressure 60 mm[Hg] 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: [facility] 07-21-2024 09:05-0400 Heart rate 72 /min 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: [facility] 07-21-2024 09:05-0400 SaO2% (BldA) [Mass fraction] 98 % 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: [facility] 07-21-2024 09:05-0400 Systolic blood pressure 122 mm[Hg] 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: [facility] 03-29-2024 12:23-0400 Body mass index (BMI) [Ratio] 26.39 kg/m2 Julissa MORRISON Work Phone: [facility] 03-29-2024 12:23-0400 Body temperature 98.4 [degF] Krislyn Aberegg PA Work Phone: [facility] 03-29-2024 [id number] Body weight 61.3 kg Krislyn Aberegg PA Work Phone: [facility] 03-29-2024 12:23-0400 Diastolic blood pressure 93 mm[Hg] Krislyn Aberegg PA Work Phone: [facility] 03-29-2024 12:23-0400 Heart rate 75 /min Krislyn Aberegg PA Work Phone: [facility] 03-29-2024 [id number]:[id number] Respiratory rate 18 /min Krislyn Aberegg PA Work Phone: [facility] 03-29-2024 12:23-0400 SaO2% (BldA) [Mass fraction] 100 % Krislyn Aberegg PA Work Phone: [facility] 03-29-2024 12:23-0400 Systolic blood pressure 154 mm[Hg] Krislyn Aberegg PA Work Phone: [facility] 02-21-2024 10:29040 Body height 152.4 cm 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: [facility] 02-21-2024 10:290400 Body mass index (BMI) [Ratio] 26.95 kg/m2 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: [facility] 02-21-2024 10:29040 Body temperature 98.01 [degF] 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: [facility] 02-21-2024 10:29040 Body weight 62.6 kg 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: [facility] 02-21-2024 10:29-0400 Diastolic blood pressure 70 mm[Hg] 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: [facility] 02-21-2024 10:29-0400 Heart rate 82 /min 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: [facility] 02-21-2024 10:29-0400 Respiratory rate 16 /min 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: [facility] 02-21-2024 10:29-0400 SaO2% (BldA) [Mass fraction] 98 % 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: [facility] 02-21-2024 10:29-0400 Systolic blood pressure 122 mm[Hg] 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: [facility] 02-05-2024 16:35-0400 Body mass index (BMI) [Ratio] 28.01 kg/m2 Krislyn Aberegg PA Work Phone: [facility] 02-05-2024 16:35-0400 Body temperature 97.2 [degF] Krislyn Aberegg PA Work Phone: [facility] 02-05-2024 16:35-0400 Body weight 62.9 kg Krislyn Aberegg PA Work Phone: [facility] 02-05-2024 16:35-0400 Diastolic blood pressure 76 mm[Hg] Krislyn Aberegg PA Work Phone: [facility] 02-05-2024 16:35-0400 Heart rate 79 /min Krislyn Aberegg PA Work Phone: [facility] 02-05-2024 16:35-0400 Respiratory rate 18 /min Krislyn Aberegg PA Work Phone: [facility] 02-05-2024 16:35-0400 SaO2% (BldA) [Mass fraction] 96 % Krislyn Aberegg PA Work Phone: [facility] 02-05-2024 16:35-0400 Systolic blood pressure 126 mm[Hg] Krislyn Aberegg PA Work Phone: [facility] 09-12-2023 15:26-0500 Body temperature 97.5 [degF] Krislyn Aberegg PA Work Phone: [facility] 09-12-2023 15:26-0500 Body weight 63.41 kg Krislyn Aberegg PA Work Phone: [facility] 09-12-2023 15:26-0500 Diastolic blood pressure 82 mm[Hg] Krislyn Aberegg PA Work Phone: [facility] 09-12-2023 15:26-0500 Heart rate 61 /min Krislyn Aberegg PA Work Phone: [facility] 09-12-2023 15:26-0500 Respiratory rate 18 /min Krislyn Aberegg PA Work Phone: [facility] 09-12-2023 15:26-0500 SaO2% (BldA) [Mass fraction] 99 % Krislyn Aberegg PA Work Phone: [facility] 09-12-2023 15:26-0500 Systolic blood pressure 138 mm[Hg] Krislyn Aberegg PA Work Phone: [facility] 08-27-2023 12:00-0500 Body temperature 97.59 [degF] Julian Miguel MD Work Phone: [facility] 08-27-2023 12:00-0500 Body weight 64.77 kg Julian Miguel MD Work Phone: [facility] 08-27-2023 12:00-0500 Diastolic blood pressure 78 mm[Hg] Julian Miguel MD Work Phone: [facility] 08-27-2023 12:00-0500 Heart rate 79 /min Julian Miguel MD Work Phone: [facility] 08-27-2023 12:00-0500 Respiratory rate 18 /min Julian Miguel MD Work Phone: [facility] 08-27-2023 12:00-0500 SaO2% (BldA) [Mass fraction] 97 % Julian Miguel MD Work Phone: [facility] 08-27-2023 12:00-0500 Systolic blood pressure 151 mm[Hg] Julian Miguel MD Work Phone: [facility] 02-23-2023 12:24-0400 Body temperature 97.81 [degF] Meera 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 Work Phone: [facility] 02-23-2023 12:24-0400 Body weight 62.69 kg Meera 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 Work Phone: [facility] 02-23-2023 12:24-0400 Diastolic blood pressure 80 mm[Hg] Meera 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 Work Phone: [facility] 02-23-2023 12:24-0400 Heart rate 67 /min Meera 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 Work Phone: [facility] 02-23-2023 12:24-0400 Respiratory rate 16 /min Meera 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 Work Phone: [facility] 02-23-2023 12:24-0400 SaO2% (BldA) [Mass fraction] 99 % Meera 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 Work Phone: [facility] 02-23-2023 12:24-0400 Systolic blood pressure 122 mm[Hg] Meera 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 Work Phone: [facility] 11-14-2022 17:10-0500 Body temperature 96.91 [degF] Meera 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 Work Phone: [facility] 11-14-2022 17:10-0500 Body weight 63.32 kg Meera 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 Work Phone: [facility] 11-14-2022 17:10-0500 Diastolic blood pressure 88 mm[Hg] Meera 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 Work Phone: [facility] 11-14-2022 17:10-0500 Heart rate 76 /min Meera 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 Work Phone: [facility] 11-14-2022 17:10-0500 Respiratory rate 16 /min Meera 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 Work Phone: [facility] 11-14-2022 17:10-0500 SaO2% (BldA) [Mass fraction] 97 % Meera 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 Work Phone: [facility] 11-14-2022 17:10-0500 Systolic blood pressure 138 mm[Hg] Meera 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 Work Phone: [facility] Encounters Encounter Date Encounter Type Care Provider Facility Start: 07-21-2024 End: 07-21-2024 Patient encounter procedure Nora Mccartney 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 Work Phone: [facility] Comment on above: Moderate episode of recurrent major depressive disorder (HCC) (Primary Dx); Essential hypertension; Chronic pain of left knee; Primary osteoarthritis of left knee; Vitamin D deficiency; Encounter for immunization; Colon cancer screening Start: 07-21-2024 End: 07-21-2024 ambulatory NORA MCCARTNEY Facility:[facility] Start: 07-09-2024 End: 07-09-2024 Refill Nora Mccartney APRN[employer] Work Phone: [facility] Comment on above: Refill Request Start: 06-24-2024 End: 06-24-2024 ambulatory Chayito Norris MA [facility] Comment on above: ED OUTREACH (ED OUTR VIRAL/BRITANY /06/17/2024) Start: 05-30-2024 Telephone encounter Nora Mccartney APRN[employer] Work Phone: [facility] Comment on above: Lab Orders Start: 04-01-2024 ambulatory Beatrice Ewing [facility] Start: 03-30-2024 ambulatory Lata Mensahb DIRECTOR OF CARDIAC CATH LAB NURSE O N CALL Comment on above: Return Provider Call Start: 03-30-2024 Telephone encounter Julissa MORRISON Work Phone: [facility] Comment on above: Results Start: 03-29-2024 End: 03-29-2024 ambulatory NORA MCCARTNEY Facility:[facility] Start: 03-29-2024 End: 03-29-2024 Patient encounter procedure Julissa MORRISON Work Phone: [facility] Comment on above: Viral illness (Prima ry Dx) Start: 02-27-2024 Telephone encounter Nora Mccartney 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 Work Phone: [facility] Comment on above: Results Start: 02-22-2024 End: 02-22-2024 ambulatory NORA MCCARTNEY Facility:[facility] Start: 02-22-2024 Encounter for genera l adult medical examination without abnormal findings CAILIN STEELE [facility] Start: 02-21-2024 End: 02-21-2024 Patient encounter procedure Nora Mccartney 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 Work Phone: [facility] Comment on above: Well adult exam (Lenka chayito Dx); Essential hypertension; Mild episode of recurrent major depressive disorder (HCC); Vitamin D deficiency; Fatigue, unspecified type; History of iron deficiency; Screening for lipid disorders; Screening for thyroid disorder; Screening for colon cancer; Encounter for screening mammogram for breast cancer Start: 02-21-2024 End: 02-21-2024 Patient encounter status Nora Mccartney 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 Work Phone: [facility] Work Phone: Start: 02-21-2024 End: 02-21-2024 ambulatory NORA MCCARTNEY Facility:[facility] Start: 02-21-2024 Encounter for genera l adult medical examination without abnormal findings NORA MCCARTNEY [facility] Start: 02-18-2024 End: 02-18-2024 ambulatory CAILIN STEELE Facility:[facility] Start: 02-18-2024 End: 02-18-2024 Patient encounter procedure Rosalio Alfaro MD Work Phone: [facility] Comment on above: Blurred vision, bila teral (Primary Dx); Refractive error; Pseudophakia; Dry eye syndrome, bilateral Start: 02-05-2024 End: 02-05-2024 [facility] Facility:[facility] Start: 02-05-2024 End: 02-05-2024 Patient encounter procedure Julissa MORRISON Work Phone: [facility] Comment on above: Bacterial sinusitis (Primary Dx); Fatigue, unspecified type Start: 09-12-2023 End: 09-12-2023 Subsequent hospital visit by physician [facility] Work Phone: Radiology Comment on above: Acute cough [R05.1] Start: 09-12-2023 End: 09-12-2023 ambulatory [facility] Facility:[facility] Start: 09-12-2023 End: 09-12-2023 Patient encounter procedure Julissa Johnson PA Work Phone: [facility] Comment on above: Acute cough (Primary Dx); Bacterial sinusitis Start: 08-28-2023 Telephone encounter Wen calderón APRN[employer] Work Phone: [facility] Comment on above: Results Start: 08-27-2023 End: 08-27-2023 ambulatory [facility] Facility:[facility] Start: 08-27-2023 End: 08-27-2023 Patient encounter procedure Julian Miguel MD Work Phone: [facility] Comment on above: URI, acute (Primary Dx) Start: 02-23-2023 End: 02-23-2023 Patient encounter procedure Meera Pa APRN[employer] Work Phone: [facility] Comment on above: Rash (Primary Dx) Start: 11-14-2022 End: 11-14-2022 Patient encounter procedure Meera Pa APRN[employer] Work Phone: [facility] Comment on above: Arthritis pain (Prim malathi Dx); Essential hypertension Procedures Date Procedure Procedure Detail Performing Clinician Start: 02-22-2024 Lipid 1996 panel - S maverick or Plasma Nora Mccartney APRN[employer] Work Phone: Start: 09-12-2023 Radiologic exam ches t 2 views Julissa MORRISON Work Phone: Start: 06-29-2017 Mammography Meera Mendez [employer] Work Phone: Start: 05-02-2016 Lipid 1996 panel - S maverick or Plasma Julian Miguel MD Work Phone: Start: 09-04-2011 Colonoscopy Meera Mendez [employer] Work Phone: Plan of Treatment Date Care Activity Detail Author Start: 04-01-2030 Urine microalbumin profile DTaP,Tdap,Td Vaccine (3 - Td or Tdap) [facility] Start: 02-21-2029 Lipid panel Lipid Screening [facility] Start: 02-21-2027 Diabetes Screening Diabetes Screenin g [facility] Start: 07-21-2025 Annual PCP Team Clinical Safety Specialist zeke Disease Visit Annual PCP Team Chronic Disease Visit [facility] Start: 07-21-2025 Anxiety Screening Anxiety Screening [facility] Comment on above: Postponed from 06/22 (Declined at this time) Start: 07-21-2025 BP Controlled (<130/80) BP Controlle d (<130/80) [facility] Start: 07-21-2025 Covid-19 Vaccine () Covid-19 Vaccine () [facility] Comment on above: Postponed from 06/15 (Declined at this time) Start: 02-20-2025 Annual PCP Team Clinical Safety Specialist zeke Disease Visit Annual PCP Team Chronic Disease Visit [facility] Start: 02-20-2025 BP Controlled (<130/80) BP Controlle d (<130/80) [facility] Start: 02-20-2025 Covid-19 Vaccine (4 - 2023-24 season) Covid-19 Vaccine () [facility] Comment on above: Postponed from 06/15 (Declined at this time) Start: 02-20-2025 HIV screening HIV Screening [facility] Comment on above: Postponed from 06/22 (Declined at this time) Start: 02-04-2025 BP Controlled (<130/80) BP Controlle d (<130/80) [facility] Start: 08-25-2024 End: 08-25-2024 Patient encounter procedure 08/25/2024 10:40 AM EST Office Visit [facility] [address] [place] [address] Nora Mccartney APRN.[employer] [address] [place] [address] 6 MTH F/U HYPERLIPIDEMIA AND HTN [facility] Comment on above: 6 MTH F/U HYPERLIPID EMIA AND HTN Start: 07-21-2024 End: 07-21-2024 Patient encounter procedure 07/21/2024 9:20 AM EDT Office Visit [facility] [address] [place] [address] Nora Mccartney APRN.[employer] [address] [place] [address] med refill [facility] Comment on above: med refill Start: 06-15-2024 Covid-19 Vaccine ( season) Covid-19 Vaccine () [facility] Start: 06-15-2024 Covid-19 Vaccine ( season) Covid-19 Vaccine () [facility] Start: 06-15-2024 Influenza vaccination C [facility] Start: 03-29-2024 End: 04-12-2024 COVID & INFLUENZA A/B & RSV NAAT, ROUTINE COVID & INFLUENZA A/B & RSV NAAT, ROUTINE Microbiology Routine Viral illness Expected: 03/29/2024, Expires: 04/12/2024 [facility] Work Phone: Comment on above: Expected: 03/29/2024 , Expires: 04/12/2024 Start: 02-21-2024 End: 05-22-2024 25-hydroxyvitamin D3 [Mass/volume] in Serum or Plasma VITAMIN D 25 HYDROXY Lab Routine Well adult exam Fatigue, unspecified type Vitamin D deficiency Expected: 02/21/2024, Expires: 05/22/2024 [facility] Comment on above: Expected: 02/21/2024 , Expires: 05/22/2024 Start: 02-21-2024 End: 05-22-2024 CBC W Auto Differential panel - Blood COMPLETE BLOOD COUNT AND DIFFERENTIAL Lab Routine Well adult exam History of iron deficiency Fatigue, unspecified type Expected: 02/21/2024, Expires: 05/22/2024 [facility] Comment on above: Expected: 02/21/2024 , Expires: 05/22/2024 Start: 02-21-2024 End: 05-22-2024 Comprehensive metabolic 2000 panel - Serum or Plasma COMPREHENSIVE METABOLIC PANEL Lab Routine Well adult exam Expected: 02/21/2024, Expires: 05/22/2024 [facility] Comment on above: Expected: 02/21/2024 , Expires: 05/22/2024 Start: 02-21-2024 End: 05-22-2024 Hemoglobin A1c in Blood HEMOGLOBIN A1C Lab Routine Well adult exam Expected: 02/21/2024, Expires: 05/22/2024 [facility] Comment on above: Expected: 02/21/2024 , Expires: 05/22/2024 Start: 02-21-2024 End: 05-22-2024 Lipid 1996 panel - Serum or Plasma LIPID PANEL BASIC Lab Routine Well adult exam Screening for lipid disorders Expected: 02/21/2024, Expires: 05/22/2024 [facility] Work Phone: Comment on above: Expected: 02/21/2024 , Expires: 05/22/2024 Start: 02-21-2024 End: 05-22-2024 Thyrotropin [Units/volume] in Serum or Plasma THYROID STIMULATING HORMONE Lab Routine Well adult exam Screening for thyroid disorder Expected: 02/21/2024, Expires: 05/22/2024 [facility] Comment on above: Expected: 02/21/2024 , Expires: 05/22/2024 Start: 02-21-2024 End: 02-21-2024 Patient encounter procedure 02/21/2024 10:40 AM EDT Office Visit [facility] [address] [place] [address] Nora Mccartney, 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.[employer] [address] [place] [address] new pt [facility] Comment on above: new pt Start: 08-27-2023 End: 09-10-2023 Influenza virus A and B RNA and SARS-CoV-2 (COVID-19) N gene panel - Respiratory specimen by LILIBETH with probe detection [facility] Work Phone: Comment on above: Expected: 08/27/2023 , Expires: 09/10/2023 Start: 06-15-2023 Covid-19 Vaccine ( season) Covid-19 Vaccine ( season) [facility] Start: 06-15-2023 Influenza vaccination C [facility] Start: 06-15-2022 Influenza vaccination INFLUENZA (#1) [facility] Start: 06-12-2022 Urine microalbumin profile DTAP,TDAP,TD (2 - Td or Tdap) [facility] Start: 11-14-2021 COVID-19 VACCINE (4 - Booster for Pfizer series) COVID-19 VACCINE (4 - Booster for Pfizer series) [facility] Start: 09-04-2021 Colonoscopy COLONOSCOPY [facility] Start: 09-04-2021 COLORECTAL CANCER SCREENING COLORECTAL CANCER SCREENING [facility] Start: 09-04-2021 Screening for malign ant neoplasm of colon [facility] Start: 05-02-2021 Lipid 1996 panel - S maverick or Plasma Lipid Screening [facility] Start: 05-02-2021 Lipid panel Lipid Screening [facility] Start: 05-02-2021 LIPID SCREEN LIPID SCREEN [facility] Start: 05-02-2019 [facility]ABET[facility] Start: 05-02-2019 Diabetes Screening Diabetes Screenin g [facility] Start: 02-19-2019 ANNUAL PCP TEAM STEAM 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 ZEKE DISEASE VISIT ANNUAL PCP TEAM CHRONIC DISEASE VISIT [facility] Start: 06-29-2018 Mammography [facility] Start: 06-29-2018 Screening for malign ant neoplasm of breast Mammogram Screening [facility] Start: 11-11-2017 PAP TESTING PAP TESTING [facility] Start: 11-11-2017 Screening for malign ant neoplasm of cervix [facility] Start: 08-08-2016 HPV TESTING HPV TESTING [facility] Start: 08-08-2016 Screening for malign ant neoplasm of cervix HPV Testing [facility] Start: 2015 SHINGRIX VACCINE (1 of 2) SHINGRIX VACCINE (1 of 2) [facility] Start: 06-20-2013 FECAL OCCULT BLOOD FECAL OCCULT BLOO D [facility] Start: 06-20-2013 Screening for malign ant neoplasm of colon Fecal Occult Blood [facility] Start: 2010 COLOGUARD (FIT-DNA) COLOGUARD (FIT-D NA) [facility] Start: [address] COLONOGRAPHY [facility] Start: 2010 Screening for malign ant neoplasm of colon [facility] Start: 2010 SIGMOIDOSCOPY SIGMOIDOSCOPY [facility] Start: 1984 Hepatitis B Vaccine (1 of 3 - 19+ 3-dose series) Hepatitis B Vaccine (1 of 3 - 19+ 3-dose series) [facility] Start: 1983 ANNUAL PCP TEAM STEAM 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 ZEKE DISEASE VISIT ANNUAL PCP TEAM CHRONIC DISEASE VISIT [facility] Start: 1983 Anxiety Screening Anxiety Screening [facility] Start: 1983 BP CONTROLLED (<130/80) BP CONTROLLE D (<130/80) [facility] Start: 1983 HIV SCREENING HIV SCREENING [facility] Start: 1983 HIV screening HIV Screening [facility] Start: 1965 HEPATITIS B (1 of 3 - 3-dose series) HEPATITIS B (1 of 3 - 3-dose series) [facility] Start: 1965 Hepatitis B Vaccine (1 of 3 - 3-dose series) Hepatitis B Vaccine (1 of 3 - 3-dose series) [facility] Im adm prq id subq/i m njxs 1 vaccine IMADM PRQ ID SUBQ/IM NJXS 1 VACC Immunization/Injection Routine Encounter for immunization Ordered: 07/21/2024 [facility] Work Phone: Comment on above: Ordered: 07/21/2024 End: 03-22-2025 MG Breast Screening DOUG SCREENING Radiology Routine Encounter for screening mammogram for breast cancer 1 Occurrences starting 02/21/2024 until 03/22/2025 [facility] Comment on above: 1 Occurrences starti ng 02/21/2024 until 03/22/2025 Immunizations Immunization Date Immunization Notes Care Provider Elo fuentes 07-21-2024 influenza, seasonal, injectable 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: [facility] 09-19-2021 COVID-19 original vaccine, full dose, monovalent (MODERNA) 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: [facility] 09-19-2021 influenza, injectabl e, quadrivalent, preservative free 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: [facility] 09-19-2021 influenza virus vaccine, unspecified formulation Julian Miguel MD Work Phone: [facility] 2020 influenza, injectabl e, quadrivalent, contains preservative 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: [facility] 04-01-2020 tetanus toxoid, redu yanet diphtheria toxoid, and acellular pertussis vaccine, adsorbed 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: [facility] 06-10-2019 influenza, injectabl e, quadrivalent, contains preservative 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: [facility] 07-17-2018 zoster vaccine recombinant 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: [facility] 07-11-2018 influenza, injectabl e, quadrivalent, preservative free 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: [facility] 05-21-2018 zoster vaccine recombinant 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: [facility] 07-07-2016 influenza, injectabl e, quadrivalent, contains preservative Meera 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.[facility] Work Phone: [facility] 08-17-2014 influenza, seasonal, injectable Meera 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[employer] Work Phone: [facility] 09-26-2013 influenza virus vaccine, unspecified formulation 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[employer] Work Phone: [facility] 06-12-2012 tetanus toxoid, redu yanet diphtheria toxoid, and acellular pertussis vaccine, adsorbed Meera 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 Social History Date Type Detail [facility] Work Phone: Start: 11-14-2022 End: 07-21-2024 Alcohol intake Current non-drinker of alcohol (finding) [facility] Start: 1965 Sex Assigned At Not on file C [facility] Start: 08-27-2023 End: 07-21-2024 History of Social function [facility] Start: 08-27-2023 End: 07-21-2024 Tobacco use panel [facility] Adult Depression Screening Assessment 2 [facility] Clinical Notes 01-23-2013 to 07-21-2024 Chayito Norris MA - 07/21/2024 9:38 AM EDChayito Leung MA - 07/21/2024 9:38 AM EDTPatient InstructionsNora Mccartney APRN.CNP - 07/21/2024 9:12 AM EDTChayito Norris MA - 06/24/2024 8:31 AM EDT Note Date & Type Note [facility] 07-21-2024 Nurse Note Pt. Given regular dose flu with no complaints. Vis given. Chayito Norris MA [facility] 07-21-2024 Nurse Note Pt. Given regular dose flu with no complaints. Vis given. Chayito Norris MA documented in this encounter [facility] 07-21-2024 Instructions Nora Mccartney APRN.CNP - 07/21/2024 9:26 AM EDT Emilie Negro PA-C Orthopaedic Surgery [facility] ([facility]) [address] [place] [address] Appointment:[phone] documented in this encounter [facility] 07-21-2024 Note HNO ID: [id number] Author: NORA MCCARTNEY APRN.CNP Service: ? Author [...] of Onset Cancer Mother throat Heart Brother MA Diabetes Brother Coronary Artery Disease Brother MA Current Outpatient Medications Medication Sig Dispense Refill [...] fatigue and unexpected (more content not included)... [facility] 07-21-2024 History of Presen t illness Narrative [...] of Onset Cancer Mother throat Heart Brother MA Diabetes Brother Coronary Artery Disease Brother MA Current Outpatient Medications Medication Sig Dispense Refill [...] Cognition and Memory: Cognition normal. Latest Ref [facility] 02/22/2024 WBC 3.70 - 11.00 k/uL 9.07 [...] Abs Lymph 1.00 - 4.00 k/uL 3.96 [place]% % 7.5 Abs [place] <0.87 k/uL 0.68 Eosin% % 4.7 Abs [...] Nora Mccartney APRN.CNP documented in this encounter [facility] 07-09-2024 Telephone encounter Note Patient requesting [...] Please review and advise. Melissa Hernandez MA [facility] 07-09-2024 Miscellaneous Notes Patient requesting refills [...] Melissa Hernandez MA documented in this encounter [facility] 06-24-2024 Note HNO ID: [id number] Author: CHAYITO NORRIS MA Service: ? Author Type: Patrol Sergeant Type: Progress Notes Filed: 06/24/2024 08:32 Note Text: ED Follow Up: Patient discharged from [facility] ED on 06/17/2024. 1. How are you [...] you able to contact the office or fashion consultant sales provider prior to your ED visit? Not applicable 5. Is there anything else I can do for you today? Not applicable LM ON PT. VM TO CONTACT OFFICE IF SHE NEEDS ANYTHING OR WOULD LIKE A ER FOLLOW UP. Chayito Norris MA [facility] 06-24-2024 History of Presen t illness Narrative ED Follow Up: Patient discharged from [facility] ED on 06/17/2024. 1. How are you [...] you able to contact the office or fashion consultant sales provider prior to your ED visit? Not applicable 5. Is there anything else I can do for you today? Not applicable LM ON PT. VM TO CONTACT OFFICE IF SHE NEEDS ANYTHING OR WOULD LIKE A ER FOLLOW UP. Chayito Norris MA documented in this encounter [facility] 06-24-2024 Note Patient Outreach (AMANDA FAMMATILDA) SUHAS ARCOS ([id number]) 1965 F Date Time Provider Department 06/24/24 CHAYITO NORRIS During your visit today, we recorded the following information about you: Chayito Norris MA 06/24/2024 8:32 AM Signed ED Follow Up: Patient discharged from [facility] ED on 06/17/2024. 1. How are you [...] you able to contact the office or fashion consultant sales provider prior to your ED visit? Not [...] Visit: ED OUTREACH [Other] Cmt: ED OUTREACH [place] 06/17/2024 Prescriptions as of 06/24/2024 - atenolol [...] of func*10/04/2010 11/16/2015 ASCUS on Pap smear [BIN7128] 08/23/2011 Blood in stool [K92.1] 08/31/2011 03/24/2014 Anemia, unspecified [D64.9] 08/31/2011 06/28/2016 Iron deficiency anemia [D50.9] 09/28/2011 Neck pain [M54.2] 01/23/2013 06/28/2016 Cervicalgia [M54.2] 11/06/2013 Adjustment disorder with mixed anxiety and depr*12/29/2013 Psychic factors associated with diseases classi*12/29/2013 Sciatica [M54.30] 02/23/2015 Tension-type headache, not intractable [G44.209]01/27/2016 Abnormal mammogram [R92.8] 07/06/2017 Encounter Status:Closed by CHAYITO NORRIS on 06/24/24 [facility] 05-30-2024 Telephone encounter Note ----- Message from Melissa Hernandez MA sent at 02/28/2024 3:53 PM EDT ----- CBC- recheck in 3 months. [facility] 05-30-2024 Miscellaneous Notes ----- Message from Melissa Hernandez MA sent at 02/28/2024 3:53 PM EDT ----- CBC- recheck in 3 months. documented in this encounter [facility] 04-01-2024 Note HNO ID: [id number] Author: BEATRICE EWING LPN Service: ? Author Type: LICENSED NURSE Type: Progress Notes Filed: 04/01/2024 10:24 Note Text: ED Follow Up: Patient discharged from [facility] ED on 03/31/2024. 1. How are you [...] you able to contact the office or fashion consultant sales provider prior to your ED visit? Left message for pt to call office back. 5. Is there anything else I can do for you today? Left message for pt to call office back. [facility] 04-01-2024 History of Presen t illness Narrative ED Follow Up: Patient discharged from [facility] ED on 03/31/2024. 1. How are you [...] you able to contact the office or fashion consultant sales provider prior to your ED visit? Left message for pt to call office back. 5. Is there anything else I can do for you today? Left message for pt to call office back. documented in this encounter [facility] 04-01-2024 Note Patient Outreach (AG FAMPLE) SUHAS ARCOS ([id number]) 1965 F Date Time Provider Department 04/01/24 BEATRICE EWING During your visit today, we recorded the following information about you: Beatrice Ewing LPN 04/01/2024 10:24 AM Signed ED Follow Up: Patient discharged from [facility] ED on 03/31/2024. 1. How are you [...] you able to contact the office or fashion consultant sales provider prior to your ED visit? Left [...] of func*10/04/2010 11/16/2015 ASCUS on Pap smear [[id number]] 08/23/2011 Blood in stool [K92.1] 08/31/2011 03/24/2014 Anemia, unspecified [D64.9] 08/31/2011 06/28/2016 Iron deficiency anemia [D50.9] 09/28/2011 Neck pain [M54.2] 01/23/2013 06/28/2016 Cervicalgia [M54.2] 11/06/2013 Adjustment disorder with mixed anxiety and depr*12/29/2013 Psychic factors associated with diseases classi*12/29/2013 Sciatica [M54.30] 02/23/2015 Tension-type headache, not intractable [G44.209]01/27/2016 Abnormal mammogram [R92.8] 07/06/2017 Encounter Status:Closed by BEATRICE EWING on 04/01/24 [facility] 03-30-2024 Telephone encounter Note Spoke with patient, discussed OTC medications for WISE and bodyaches such as alternating Tylenol and ibuprofen. Suggested f/u appt with pcp to explore further testing for severe bodyaches and headaches, but to proceed to ER sooner if patient feels as though pain is too bad. Rut Watkins MA [facility] 03-30-2024 Miscellaneous Notes Spoke with patient, [...] COVID flu RSV documented in this encounter [facility] 03-30-2024 Telephone encounter Note Patient's called [...] there is no answer Yefri Rodriguez Pss [facility] 03-30-2024 Telephone encounter Note Patient friend calling regarding results. Conferenced to Yefri in [place] [facility] at phone number ([phone]) for assistance. Lata Friend LPN [facility] 03-30-2024 Miscellaneous Notes Patient friend calling regarding results. Conferenced to Yefri in [place] [facility] at phone number ([phone]) for assistance. Lata Friend LPN documented in this encounter [facility] 03-30-2024 Telephone encounter Note Left VM instructing patient to return call to receive results. Rut Watkins MA [facility] 03-30-2024 Telephone encounter Note Negative for COVID flu RSV [facility] 03-29-2024 Note HNO ID: [id number] Author: JULISSA JOHNSON PA Service: ? Author Type: Physician Clinic Manager Type: Progress Notes Filed: 03/29/2024 12:35 Note Text: This note was created using Peppercornriter. Subjective Suhas Arcos is a 58 year [...] of Onset Cancer Mother throat Heart Brother MA Diabetes Brother Coronary Artery Disease Brother MA Social History Tobacco Use Smoking status: Never [...] detail warranting prompt ER evaluation. PRINCE Colón [facility] 03-29-2024 History of Presen t illness Narrative This note was created using Therm[employer] Process Control. Subjective Suhas Arcos is a 58 year [...] of Onset Cancer Mother throat Heart Brother MA Diabetes Brother Coronary Artery Disease Brother MA Social History Tobacco Use Smoking status: Never [...] evaluation. PRINCE Colón documented in this encounter [facility] 03-29-2024 Instructions Julissa Johnson PA - [...] with any congestion. documented in this encounter [facility] 02-28-2024 Telephone encounter Note Patient is informed reminder placed Melissa Hernandez MA [facility] 02-28-2024 Miscellaneous Notes Patient is informed reminder placed Melissa Hernandez MA Please call the patient with results: [...] minutes a week. documented in this encounter [facility] 02-27-2024 Telephone encounter Note Please call [...] Increase exercise at 150 minutes a week. [facility] 02-21-2024 Instructions Nora Mccartney APRN.CNP - 02/21/2024 10:59 AM EDT [place] [facility]- Call [phone] Laboratory (Appointment Recommended) Sunday: Closed Sunday: 7 a.m. - 5 p.m. Sunday: 7 a.m. - 5 p.m. Sunday: 7 a.m. - 5 p.m. : 7 a.m. - 5 p.m. Sunday: 7 a.m. - 5 p.m. Sunday: 7:30 a.m. - Noon [facility] Outpatient Lab Hours For your convenience, the outpatient laboratory is open during the following hours: Sunday- Sunday 7 a.m. - 4:30 p.m. Sunday: 8 a.m. - 11:45 a.m. The outpatient lab is closed on Sundays and . [facility] Radiology testing- call [facility] at [phone] Fast for 10 hours. Water is ok. documented in this encounter [facility] 02-21-2024 Note HNO ID: [id number] Author: NORA MCCARTNEY APRN.[employer] Service: ? Author Type: Nurse Practitioner Type: Progress Notes Filed: 02/21/2024 17:18 Note Text: [facility] Nora Mccartney APRN-[employer] [address] [place] [address] Dept Dept. Visit Date: February 21, 2024 Ms.Jaswinder Arcos Date of : 1965 MRN/E #: [id number] Chief Complaint: Patient presents with: Establish Care [...] Brother Age of Onset: (Not Specified) Comment: MA Problem: Diabetes Relation: Brother Age of Onset: (Not Specified) Problem: Coronary Artery Disease Relation: Brother Age of Onset: (Not Specified) Comment: MA ALLERGIES Allergen Reactions Sulfa (Sulfonamide * itching, [...] and dry. Neur (more content not included)... [facility] 02-21-2024 History of Presen t illness Narrative Images from the original note were not included. [facility] Nora Mccartney 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 [address] [place] [address] Dept Dept. Visit Date: February 21, 2024 Ms.Jaswinder Arcos Date of : 1965 MRN/E #: [id number] Chief Complaint: Patient presents with: Establish Care [...] Brother Age of Onset: (Not Specified) Comment: MA Problem: Diabetes Relation: Brother Age of Onset: (Not Specified) Problem: Coronary Artery Disease Relation: Brother Age of Onset: (Not Specified) Comment: MA ALLERGIES Allergen Reactions Sulfa (Sulfonamide * itching, [...] needs code for MyChart please. Nora Mccartney APRN.[employer], signed on February 21, 2024 10:40 AM documented in this encounter [facility] 02-18-2024 Instructions Rosalio Alfaro MD - 02/18/2024 3:21 PM EDT Dry Eye management: Preservative free lubricant eye drop 4 to 8 times daily Both eyes ( refresh, systane, genteal and theratears are good brands) Drink 6 to 8 glasses of clear liquids daily Cool mist humidifier in bedroom documented in this encounter [facility] 02-18-2024 Note HNO ID: [id number] Author: ROSALIO ALFARO MD Service: ? Author [...] of its relevant components. Rosalio Diana MD [facility] 02-18-2024 History of Presen t illness Narrative [...] Rosalio Diana MD documented in this encounter [facility] 02-05-2024 Note HNO ID: [id number] Author: JULISSA JOHNSON PA Service: ? Author Type: Physician Clinic Manager Type: Progress Notes Filed: 02/05/2024 16:59 Note Text: This note was created using Peppercornriter. Subjective Suhas Arcos is a 58 year [...] mi Diabetes Brother Coronary Artery Disease Brother [place] Social History Tobacco Use Smoking status: Never [...] detail warranting prompt ER evaluation. PRINCE Colón [facility] 02-05-2024 History of Presen t illness Narrative This note was created using Peppercornriter. Subjective Suhas Arcos is a 58 year [...] mi Diabetes Brother Coronary Artery Disease Brother [place] Social History Tobacco Use Smoking status: Never [...] evaluation. PRINCE Colón documented in this encounter [facility] 09-12-2023 History of Presen t illness [...] 2023 3:36 PM documented in this encounter [facility] 09-12-2023 Note HNO ID: [id number] Author: America Rodriguez RT(Susu) Service: Radiology Author [...] RT Willa(Susu) September 12, 2023 3:36 PM [facility] 09-12-2023 Note HNO ID: [id number] Author: Julissa Johnson PA Service: ? Author Type: Physician Clinic Manager Type: Progress Notes Filed: 09/12/2023 4:05 PM Note Text: This note was created using Proteon Therapeutic[employer]. Subjective Suhas Arcos is a 58 year [...] mi Diabetes Brother Coronary Artery Disease Brother MA Social History Tobacco Use Smoking status: Never [...] detail warranting prompt ER evaluation. PRINCE Colón [facility] 09-12-2023 History of Presen t illness Narrative This note was created using Peppercornriter. Subjective Suhas Arcos is a 58 year [...] mi Diabetes Brother Coronary Artery Disease Brother MA Social History Tobacco Use Smoking status: Never [...] evaluation. PRINCE Colón documented in this encounter [facility] 08-28-2023 Miscellaneous Notes Patient calls and notified of results and providers instructions. Patient verbalizes understanding. Lizzeth Jackson RN Left message for patient to return call. Elizabeth Mccormack Please notify that patient was positive for flu. Past treatment window. Usually contagious for 5-7 days. Return to work when 24 hours fever free. documented in this encounter [facility] 08-27-2023 Note HNO ID: [id number] Author: Julian Miguel MD Service: ? Author [...] no wheezes or crackles, no increased [facility] 11/16/22: EST GFR - AA 104 mL/min [...] NAAT, ROUTINE - We will call in Taborlovid if positive. Julian Miguel MD [facility] 08-27-2023 History of Presen t illness Narrative [...] no wheezes or crackles, no increased [facility] 11/16/22: EST GFR - AA 104 mL/min [...] Julian Miguel MD documented in this encounter [facility] 02-23-2023 History of Presen t illness [...] mi Diabetes Brother Coronary Artery Disease Brother MA Social History Tobacco Use Smoking status: Never [...] Meera Pa APRN.CNP documented in this encounter [facility] 02-23-2023 Instructions Meera Pa APRN.CNP - [...] drainage or pus). documented in this encounter [facility] 11-14-2022 Instructions Meera Pa APRN.CNP - [...] Meera Pa APRN.MARSHAL documented in this encounter [facility] 11-14-2022 History of Presen t illness Narrative Subjective HPI Suhas Arcos is a 57 year old female who presents due to being out of her hypertension medication and some other routine meds. She states she accidentally signed a form to have her records transferred to another doctor and this was due to her misunderstanding as [place] is her second language. She did not [...] an appointment with a new PCP at [facility] but she has since run out of her medication. She went to [facility] to have these refilled and was told they could not refill chronic meds. 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[employer] and to help with [...] mi Diabetes Brother Coronary Artery Disease Brother MA Social History Tobacco Use Smoking status: Never [...] Meera Pa APRN.MARSHAL documented in this encounter [facility] 01-23-2013 History of Past i llness Narrative Problem Noted Date Resolved Date Neck pain 01/23/2013 06/28/2016 Blood in stool 08/31/2011 03/24/2014 Anemia, unspecified 08/31/2011 06/28/2016 Dyspepsia and other specifie d disorders of function of stomach 10/04/2010 11/16/2015 Anxiety state, unspecified 07/04/200706/28 Headache(784.0) 07/04/2007 06/28/2016 documented as of this encounter (statuses as of 11/15/2022) [facility] History of Past illness Narrative* Problem Noted Date Resolved Date Neck pain 01/23/2013 06/28/2016 Blood in stool 08/31/2011 03/24/2014 Anemia, unspecified 08/31/2011 06/28/2016 Dyspepsia and other specifie d disorders of function of stomach 10/04/2010 11/16/2015 Anxiety state, unspecified 07/04/200706/28 Headache(784.0) 07/04/2007 06/28/2016 documented as of this encounter (statuses as of 02/23/2023) [facility] History of Past illness Narrative* Problem Noted Date Diagnosed Date Resolved Date Neck pain 01/23/2013 06/28/2016 Blood in stool 08/31/2011 03/24/2014 Anemia, unspecified 08/31/2011 06/28/20 16 Dyspepsia and other specifie d disorders of function of stomach 10/04/2010 11/16/2015 Anxiety state, unspecified 07/04/2007 0 06/28/2016 Headache(784.0) 07/04/2007 06/28/2016 documented as of this encounter (statuses as of 08/27/2023) [facility] History of Past illness Narrative* Problem Noted Date Diagnosed Date Resolved Date Neck pain 01/23/2013 06/28/2016 Blood in stool 08/31/2011 03/24/2014 Anemia, unspecified 08/31/2011 06/28/20 16 Dyspepsia and other specifie d disorders of function of stomach 10/04/2010 11/16/2015 Anxiety state, unspecified 07/04/2007 0 06/28/2016 Headache(784.0) 07/04/2007 06/28/2016 documented as of this encounter (statuses as of 08/28/2023) [facility] History of Past illness Narrative* Problem Noted Date Diagnosed Date Resolved Date Neck pain 01/23/2013 06/28/2016 Blood in stool 08/31/2011 03/24/2014 Anemia, unspecified 08/31/2011 06/28/20 16 Dyspepsia and other specifie d disorders of function of stomach 10/04/2010 11/16/2015 Anxiety state, unspecified 07/04/2007 0 06/28/2016 Headache(784.0) 07/04/2007 06/28/2016 documented as of this encounter (statuses as of 09/13/2023) [facility] Diagnosis Arthritis pain- Primary Arthropathy, unspecified, site unspecified Essential hypertension Unspecified essential hypertension [facility] Diagnosis Rash- Primary Rash and other nonspecific skin eruption [facility] Diagnosis URI, acute- Primary Acute upper respiratory infections of unspecified site [facility] Diagnosis Acute cough- Primary Bacterial sinusitis Unspecified sinusitis (chronic) [facility]* Diagnosis Bacterial sinusitis- Primary Unspecified sinusitis (chronic) Fatigue, unspecified type [facility]* Diagnosis Blurred vision, bilateral- Primary Other specified visual disturbances Refractive error Unspecified disorder of refraction and accommodation Pseudophakia Lens replaced by other means Dry eye syndrome, bilateral [facility] Diagnosis Well adult exam- Primary Routine [...] for breast cancer [facility]* Diagnosis Viral illness- Primary Unspecified viral infection, in conditions classified elsewhere and of unspecified site [facility] Diagnosis HYPERTENSION NOS- Primary Unspecified essential [...] unspecified Acute cough [facility] Diagnosis HYPERTENSION NOS- Primary Unspecified essential [...] depressive disorder (HCC) [facility] Diagnosis HYPERTENSION NOS- Primary Unspecified [...] malignant neoplasms, colon [facility] Diagnostic Procedure Only (Routine) - Pending Review Specialty Diagnoses / Procedures Referred By Geoffrey magallanes Referred To Contact [facility] Diagnoses Encounter for screening mammogram for breast cancer Procedures DOUG SCREENING SCREENING MAMMOGRAPHY BI 2-VIEW BREAST INC CAD Nora Mccartney APRN.QA [employer] [address] [place] [address] [facility] [address] [place] [address] Referral ID Status Reason Start Date Expiration Date Visits Requested Visits Authorized [id number] Pending Review Auto-Generat ed Referral 02/21/2024 03/22/2025 1 1 * Consult, Test, Treat (Routine) - Authorized Specialty Diagnoses / Procedures Referred By Geoffrey magallanes Referred To Contact General Surgery / GENERAL SURGERY Diagnoses Screening for colon cancer Procedures CONSULT TO GENERAL SURGERY OFFICE/OUTPATIENT [facility] 60 MINUTES Nora Mccartney APRN.CNP [address] [place] [address] [facility] [address] [place] [address] Referral ID Status Reason Start Date Expiration Date Visits Requested Visits Authorized [id number] Authorized PCP Requested Referral 02/21/2024 02/20/2025 1 1 [facility] Health Concerns Infection Onset Date Last [...] EVALUATION HIGH COMPLEX 45 MINS Nora Mccartney APRN.[employer] [address] [place] [address] [facility] [place] [id number] Referral ID Status Reason Start Date Expiration Date Visits Requested Visits Authorized [id number] Pending Review Auto-Generat ed Referral 07/21/2024 07/21/2025 1 1 Specialty Diagnoses / Procedures Referred By Contac t Referred To Contact Orthopedics / [facility] DEPARTMENT Diagnoses Primary osteoarthritis of left knee Procedures CONSULT TO ORTHOPAEDIC SURGERY OFFICE/OUTPATIENT NEW HIGH MDM 60 MINUTES Nora Mccartney APRN.[employer] [address] [place] [address] Emilie Negro PA-C [address] [place] [address] Referral ID Status Reason Start Date Expiration Date Visits Requested Visits Authorized [id number] Authorized PCP Requested Referral 07/21/2024 07/21/2025 1 1 Specialty Diagnoses / Procedures Referred By Contac t Referred To Contact General Surgery / [facility] DEPARTMENT Diagnoses Colon cancer screening Procedures CONSULT TO GENERAL SURGERY OFFICE/OUTPATIENT NEW HIGH MDM 60 MINUTES Nora Mccartney APRN.[employer] [address] [place] [address] Elizabeth Bland MD [address] [place] [address] Referral ID Status Reason Start Date Expiration Date Visits Requested Visits Authorized [id number] Authorized PCP Requested Referral 07/21/2024 07/21/2025 1 1 Additional Source Comments Source Comments (unrecognize d section and content) In the event this informatio n is protected by the Federal Confidentiality of Alcohol and Drug Abuse Patient Records regulations: The Federal rules restrict any use of the information to criminally investigate or prosecute any alcohol or drug abuse patient.[facility] the event this information is protected by the Federal Confidentiality of Alcohol and Drug Abuse Patient Records regulations: The Federal rules restrict any use of the information to criminally investigate or prosecute any alcohol or drug abuse patient.[facility] the event this information is protected by the Federal Confidentiality of Alcohol and Drug Abuse Patient Records regulations: The Federal rules restrict any use of the information to criminally investigate or prosecute any alcohol or drug abuse patient.[facility] the event this information is protected by the Federal Confidentiality of Alcohol and Drug Abuse Patient Records regulations: The Federal rules restrict any use of the information to criminally investigate or prosecute any alcohol or drug abuse patient.[facility] the event this information is protected by the Federal Confidentiality of Alcohol and Drug Abuse Patient Records regulations: The Federal rules restrict any use of the information to criminally investigate or prosecute any alcohol or drug abuse patient.[facility] the event this information is protected by the Federal Confidentiality of Alcohol and Drug Abuse Patient Records regulations: The Federal rules restrict any use of the information to criminally investigate or prosecute any alcohol or drug abuse patient.[facility] the event this information is protected by the Federal Confidentiality of Alcohol and Drug Abuse Patient Records regulations: The Federal rules restrict any use of the information to criminally investigate or prosecute any alcohol or drug abuse patient.[facility] the event this information is protected by the Federal Confidentiality of Alcohol and Drug Abuse Patient Records regulations: The Federal rules restrict any use of the information to criminally investigate or prosecute any alcohol or drug abuse patient.[facility] the event this information is protected by the Federal Confidentiality of Alcohol and Drug Abuse Patient Records regulations: The Federal rules restrict any use of the information to criminally investigate or prosecute any alcohol or drug abuse patient.[facility] the event this information is protected by the Federal Confidentiality of Alcohol and Drug Abuse Patient Records regulations: The Federal rules restrict any use of the information to criminally investigate or prosecute any alcohol or drug abuse patient.[facility] the event this information is protected by the Federal Confidentiality of Alcohol and Drug Abuse Patient Records regulations: The Federal rules restrict any use of the information to criminally investigate or prosecute any alcohol or drug abuse patient.[facility] the event this information is protected by the Federal Confidentiality of Alcohol and Drug Abuse Patient Records regulations: The Federal rules restrict any use of the information to criminally investigate or prosecute any alcohol or drug abuse patient.[facility] the event this information is protected by the Federal Confidentiality of Alcohol and Drug Abuse Patient Records regulations: The Federal rules restrict any use of the information to criminally investigate or prosecute any alcohol or drug abuse patient.[facility] the event this information is protected by the Federal Confidentiality of Alcohol and Drug Abuse Patient Records regulations: The Federal rules restrict any use of the information to criminally investigate or prosecute any alcohol or drug abuse patient.[facility] the event this information is protected by the Federal Confidentiality of Alcohol and Drug Abuse Patient Records regulations: The Federal rules restrict any use of the information to criminally investigate or prosecute any alcohol or drug abuse patient.[facility] the event this information is protected by the Federal Confidentiality of Alcohol and Drug Abuse Patient Records regulations: The Federal rules restrict any use of the information to criminally investigate or prosecute any alcohol or drug abuse patient.[facility] the event this information is protected by the Federal Confidentiality of Alcohol and Drug Abuse Patient Records regulations: The Federal rules restrict any use of the information to criminally investigate or prosecute any alcohol or drug abuse patient.[facility] the event this information is protected by the Federal Confidentiality of Alcohol and Drug Abuse Patient Records regulations: The Federal rules restrict any use of the information to criminally investigate or prosecute any alcohol or drug abuse patient.[facility] Reason for Visit (unrecogniz ed section and content) Reason Comments Blurred Vision Both Eyes Specialty Diagnoses / Procedures Referred By Geoffrey t Referred To Contact Internal Medicine / [facility] Diagnoses fatigue, eyes feel heavy, congestion x 5 days Procedures EST SAME DAY [facility] [address] [place] [address] Referral ID Status Reason Start Date Expiration Date Visits Requested Visits Authorized [id number] Authorized Patient Cleared - Qualified 100% FAS [...] Diagnoses new pt Procedures 4C Nora Ivory, 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.[address] [address] Nora Mccartney, 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.[address] [address] Referral ID Status Reason Start Date Expiration Date Visits Requested Visits Authorized [id number] Authorized Patient Cleared - Qualified 100% FAS 02/21/2024 05/21/2024 99 99 Reason Comments Headache Bodyaches x last nig ht Specialty Diagnoses / Procedures Referred By Contac t Referred To Contact Family Medicine / FAMILY MEDICINE Diagnoses new pt Procedures 4C Nora Ivory, 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.[facility] [address] [place] [address] Nora Mccartney, 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.[address] [address] Reason Onset Date Comments Return Provider Call 03/30/2024 Reason Comments Lab Orders Reason Onset Date Comments ED OUTRE[facility] 06[facility]24[facility]20[facility] 06[facility]24 Reason Onset Date Comments Refill Request 07/09/2024 Reason Comments Refill Request Depression Pt states dose is wo rking Specialty Diagnoses / Procedures Referred By Geoffrey t Referred To Contact Diagnoses primary care Procedures OFFICE CONSULT NEW/EST 20 MIN Nora Mccartney, 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.[employer] [address] [place] [address] [place] [address] Referral ID Status Reason Start Date Expiration Date Visits Requested Visits Authorized [id number] Authorized Patient Cleared - Qualified 100% FAS 07/09/2024 10/07/2024 99 99 Care Teams (unrecognized sec tion and content) Compressor Stations Superintendent Relationship Specialty Start Date End Date Cassius Kilpatrick Thor PCP - General Gerontology 03/15/18 Compressor Stations Superintendent Relationship Specialty Start Date End Date Cailin Steele DO [address] [place] [address] PCP - General Family Medicine 02/23/23 Compressor Stations Superintendent Relationship Specialty Start Date End Date Cailin Steele DO [address] [place] [address] PCP - General Family Medicine 02/23/23 Compressor Stations Superintendent Relationship Specialty Start Date End Date Cailin Steele DO [address] [place] [address] PCP - General Family Medicine 02/23/23 Compressor Stations Superintendent Relationship Specialty Start Date End Date Cailin Steele DO [address] [place] [address] PCP - General Family Medicine 02/23/23 Compressor Stations Superintendent Relationship Specialty Start Date End Date Cailin Steele DO [address] [place] [address] PCP - General Family Medicine 02/23/23 Compressor Stations Superintendent Relationship Specialty Start Date End Date Cailin Steele DO [address] [place] [address] PCP - General Family Medicine 02/23/23 Compressor Stations Superintendent Relationship Specialty Start Date End Date Nora Mccartney, 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.[employer] [address] [place] [address] PCP - General Family Medicine 02/21/24 Compressor Stations Superintendent Relationship Specialty Start Date End Date Nora Mccartney, 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.[employer] [address] [place] [address] PCP - General Family Medicine 02/21/24 Compressor Stations Superintendent Relationship Specialty Start Date End Date Nora Mccartney, 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.[employer] [address] [place] [address] PCP - General Family Medicine 02/21/24 Compressor Stations Superintendent Relationship Specialty Start Date End Date Nora Mccartney, 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.[employer] [address] [place] [address] PCP - General Family Medicine 02/21/24 Compressor Stations Superintendent Relationship Specialty Start Date End Date Nora Mccartney, 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.[employer] [address] [place] [address] PCP - General Family Medicine 02/21/24 Compressor Stations Superintendent Relationship Specialty Start Date End Date Nora Mccartney, 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.[employer] [address] [place] [address] PCP - General Family Medicine 02/21/24 Compressor Stations Superintendent Relationship Specialty Start Date End Date Nora Mccartney, 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.[employer] [address] [place], [place] [id number] PCP - General Family Medicine 02/21/24 Compressor Stations Superintendent Relationship Specialty Start Date End Date Nora Mccartney, 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.[employer] [address] [facility] [place] [place] [id number] PCP - General Family Medicine 02/21/24 Compressor Stations Superintendent Relationship Specialty Start Date End Date Cailin Steele DO [address] [place], [place] [address] PCP - General Family Medicine 02/23/23 02/20/24 Compressor Stations Superintendent Relationship Specialty Start Date End Date Nora Mccartney, 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.[employer] [address] [facility] [place] [id number] PCP - General Family Medicine 02/21/24 Compressor Stations Superintendent Relationship Specialty Start Date End Date Nora Mccartney, 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.[employer] [address] [facility] [place] [place] [id number] PCP - General Family Medicine 02/21/24 INFORMATION SOURCE (unrecogn ized section and content) DATE CREATED AUTHOR 03/30/2024 [facility] DATE CREATED AUTHOR AUTHOR'S ORGANIZ ATION 07/22/2024 [facility] FOR RECORDS PERTAINING TO PATIENTS WHO ARE [...] BE BASED ON THE PRIMARY CLINICAL RECORDS. [facility], [facility]. provides no warranty or guarantee of the accuracy or completeness of information in this document.
--- OUTSIDE RECORDS SUMMARY | 2024-09-05 19:18 | XMS RPT_ITS | CCD ---
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 LEADER.Carolyn ARAYAtny A Primary Care Provider CAILIN STEELE Primary Care Unavailable CAILIN STEELE Primary Care Unavailable CAILIN STEELE Primary Care Unavailable QUEDEN, NORA A Primary Care Unavailable QUEDEN, NORA A Primary Care Unavailable SHERRILL, NORA A Referring Unavailable CAILIN STEELE Primary Care Unavailable DASH-AMY, ROSALIO Attending Unavailable CAILIN STEELE Primary Care Unavailable aCilin Steele DO Primary Care Provider QUEDEN, NORA A Attending Unavailable QUEDEN, NORA A Referring Unavailable QUEDEN, NORA A Primary Care Unavailable QUEDEN, NORA A Attending Unavailable QUEDEN, NORA A Referring Unavailable QUEDEN, NORA A Primary Care Unavailable Allergies Allergy Classification Reported Allergen(s) Allergy Type Date of Onset Reaction(s) Facility (20 sources) Sulfonamides (Antibiotic); Translations: [SULFA (SULFONAMIDE ANTIBIOTICS)] Propensity to adverse reactions 7 [facility] Medications Current Medications Medication Drug Class(es) [...] on above: Take 1 capsule by mo [facility] twice a week. (ONE CAPSULE) FOR VITAMIN D DEFICIENCY Take 1 capsule by mo [facility] once daily. FLUoxetine 20 mg oral [...] skye once daily. TAKE ONE TABLET BY [facility] ONCE DAILY predniSONE 20 mg oral [...] on above: Take 1 capsule by mo [facility] every 8 hours. ferrous sulfate 325 [...] on above: Take 1 capsule by mo [facility] once daily. Before morning meal phenylephrine [...] Name Value Interpretation Reference Range Facility [facility] 07-21-2024 OV Office Visit (AGFAMPLE) SUHAS ARCOS ([id number]) 1965 F Date Time Provider Department 07/21/24 9:20 AM NORA MCCARTNEY During your visit today, we recorded the following information about you: Temperature Pulse Blood pressure Weight 98.4 degrees 72/minute 122/60 62.1 kg Height 1.524 m Nora Mccartney APRN.SERVICE GIRL 07/21/2024 10:35 AM Signed CHIEF COMPLAINT: Suhas [...] of Onset Cancer Mother throat Heart Brother [place] Diabetes Brother Coronary Artery Disease Brother [place] Current Outpatient Medications Medication Sig Dispense Refill FLUoxetine (PROZAC) 20 mg capsule Take 1 capsule by mouth once daily. Take 1 capsule by mouth once daily 90 capsule 1 loratadine (ALLERGY RELIEF, LORATADINE,) 10 mg tablet Take 1 tablet by mouth once daily. 30 tablet 2 atenolol (TENORMIN) 25 mg tablet Take 1 tab (more content not included)... Normal [facility] Tele[facility] (AGFAMPLE) SUHAS ARCOS ([id number]) 1965 F Date Time Provider Department 05/30/24 NORA MCCARTNEY During your visit today, we recorded the following information about you: Melissa Hernandez MA 05/30/2024 7:47 AM Signed ----- Message from Melissa Hernandez MA sent at 02/28/2024 3:53 PM EDT ----- CBC- recheck in 3 months. Nora Mccartney APRN.SERVICE GIRL 07/07/2024 4:29 PM Signed Postpone until next appointment. Allergies As of Date: 05/30/2024 Noted Allergy Reaction SULFA (SULFONAMIDE ANTIBIOTICS) 10/19/2006 Comments: itching, rash Date Reviewed: 03/29/2024 Reviewed by: Rut Watkins MA - Fully Assessed Reason for Visit: Lab Orders [5288] Prescriptions as of 07/07/2024 - atenolol (TENORMIN) [...] of func*10/04/2010 11/16/2015 ASCUS on Pap smear [[id number]] 08/23/2011 Blood in stool [K92.1] 08/31/2011 03/24/2014 Anemia, unspecified [D64.9] 08/31/2011 06/28/2016 Iron deficiency anemia [D50.9] 09/28/2011 Neck pain [M54.2] 01/23/2013 06/28/2016 Cervicalgia [M54.2] 11/06/2013 Adjustment disorder with mixed anxiety and depr*12/29/2013 Psychic factors associated with diseases classi*12/29/2013 Sciatica [M54.30] 02/23/2015 Tension-type headache, not intractable [G44.209]01/27/2016 Abnormal mammogram [R92.8] 07/06/2017 Encounter Status:Closed by MELISSA HERNANDEZ on 05/30/24 [facility]2024 [facility] SU[facility] ([id number]) 1965 F Date Time Provider Department 03/30/24 JULISSA JOHNSON [facility] [place] During your visit today, we recorded the [...] of func*10/04/2010 11/16/2015 ASCUS on Pap smear [[id number]] 08/23/2011 Blood in stool [K92.1] 08/31/2011 03/24/2014 Anemia, unspecified [D64.9] 08/31/2011 06/28/2016 Iron deficiency anemia [D50.9] 09/28/2011 Neck pain [M54.2] 01/23/2013 06/28/2016 Cervicalgia [M54.2] 11/06/2013 Adjustment disorder with mixed anxiety and depr*12/29/2013 Psychic factors associated with diseases classi*12/29/2013 Sciatica [M54.30] 02/23/2015 Tension-type headache, not intractable [G44.209]01/27/2016 Abnormal mammogram [R92.8] 07/06/2017 Encounter Status:Closed by YEFRI CHESTER on 03/30/24 Normal [facility] CNOVon 03-29-2024 CNOV Office Visit (UCWSTR ) SUHAS ARCOS ([id number]) 1965 F Date Time Provider Department 03/29/24 [...] PM Signed This note was created using [employer]. Subjective Suhas Arcos is a 58 year [...] of Onset Cancer Mother throat Heart Brother [place] Diabetes Brother Coronary Artery Disease Brother [place] Social History Tobacco Use Smoking status: Never [...] higher level (more content not included)... Normal [facility] COVID AND INFLUENZA A/B AND RSV NAAT, ROUTINEon 03-29-2024 SARS-CoV-2 (COVID-19) RNA LILIBETH+probe Ql (Unsp spec) COVID 19 RESULT: Not detected The method used is RT-PCR or an equivalent NAAT method. Reference Range (the expected result in uninfected individuals): Not detected INFLUENZA A PCR: Not detected INFLUENZA B PCR: Not detected RSV PCR: Not detected Normal [facility] Comment on above: Performed By: #### C VFLRS ####[facility] LABCLIA [id number] [address] [address] [facility] Nidhi 02-27-2024 [facility] Telephone (AGFAMPLE) SUHAS ARCOS ([id number]) 1965 F Date Time Provider Department 02/27/24 NORA MCCARTNEY During your visit today, we recorded the following information about you: Nora Mccartney APRN.SERVICE GIRL 02/27/2024 4:55 PM Signed Please call the [...] Date Reviewed: 02/21/2024 Reviewed by: Nora Mccartney APRN.[facility] - Fully Assessed Reason for Visit: Results [...] of func*10/04/2010 11/16/2015 ASCUS on Pap smear [[id number]] 08/23/2011 Blood in stool [K92.1] 08/31/2011 03/24/2014 Anemia, unspecified [D64.9] 08/31/2011 06/28/2016 Iron deficiency anemia [D50.9] 09/28/2011 Neck pain [M54.2] 01/23/2013 06/28/2016 Cervicalgia [M54.2] 11/06/2013 Adjustment disorder with mixed anxiety and depr*12/29/2013 Psychic factors associated with diseases classi*12/29/2013 Sciatica [M54.30] 02/23/2015 Tension-type headache, not intractable [G44.209]01/27/2016 Abnormal mammogram [R92.8] 07/06/2017 Encounter Status:Closed by MELISSA HERNANDEZ on 02/28/[address] [facility] 25(OH)D3 [facility] 2023 25-hydroxyvitamin D3 [Mass/Vol] 40.2 ng/mL Normal 31.0-80.0 [facility] Comment on above: Order Comment: Speci men Type: BLOOD SPECIMENOrdering Facility: [facility] Address: [address] [place] [address] Result Comment: Clas sification of 25 OH Vitamin D status: Deficiency/Insufficiency: < or = 30 ng/ml. Sufficiency/Optimal Levels: 31-80 ng/mL Toxicity: > 100 ng/mL. Test performed by chemiluminescent immunoassay. Performed By: #### 1 989-3 ####[facility] LABCLIA [id number] [place] [address] [place] CBC W Auto Differential pane l (Bld)on 02-22-2024 Basophils (Bld) [#/Vol] 0.08 10*3/uL Normal <0.11 [facility] Comment on above: Order Comment: Speci men Type: BLOOD SPECIMENOrdering Facility: [facility] Address: [address] [place] [address] Performed By: #### 5 7021-8 ####[facility] LABCLIA [id number] [place] [address] [place] Basophils/100 WBC (Bld) 0.9 % Normal [facility] Comment on above: Order Comment: Speci men Type: BLOOD SPECIMENOrdering Facility: [facility] Address: [address] [place] [address] Performed By: #### 5 7021-8 ####[facility] LABCLIA [id number] [place] [address] [place] Differential cell count method Nom (Bld) Auto Normal [facility] Comment on above: Order Comment: Speci men Type: BLOOD SPECIMENOrdering Facility: [facility] Address: [address] [place] [address] Performed By: #### 5 7021-8 ####[facility] LABCLIA [id number] [place] [address] [place] Eosinophils (Bld) [#/Vol] 0.43 10*3/uL Normal <0.46 [facility] Comment on above: Order Comment: Speci men Type: BLOOD SPECIMENOrdering Facility: [facility] Address: [address] [place] [address] Performed By: #### 5 7021-8 ####[facility] LABCLIA [id number] [place] [address] [place] Eosinophils/100 WBC (Bld) 4.7 % Normal [facility] Comment on above: Order Comment: Speci men Type: BLOOD SPECIMENOrdering Facility: [facility] Address: [address] [place] [address] Performed By: #### 5 7021-8 ####[facility] LABIA [id number] [place] [address] [place] Erythrocyte distribution width (RBC) [Ratio] 13.3 % Normal 11.5-15.0 [facility] Comment on above: Order Comment: Speci men Type: BLOOD SPECIMENOrdering Facility: [facility] Address: [address] [place] [address] Performed By: #### 5 7021-8 ####[facility] LABIA [id number] [place] [address] [place] Hematocrit (Bld) [Volume fraction] 39.6 % Normal 36.0-46.0 [facility] Comment on above: Order Comment: Speci men Type: BLOOD SPECIMENOrdering Facility: [facility] Address: [address] [place] [address] Performed By: #### 5 7021-8 ####[facility] LABIA [id number] [place] [address] [place] Hemoglobin (Bld) [Mass/Vol] 12.4 g/dL Normal 11.5-15.5 [facility] Comment on above: Order Comment: Speci men Type: BLOOD SPECIMENOrdering Facility: [facility] Address: [address] [place] [address] Performed By: #### 5 7021-8 ####[facility] LABIA [id number] [place] [address] [place] Immature granulocytes (Bld) [#/Vol] 0.04 10*3/uL Normal <0.10 [facility] Comment on above: Order Comment: Speci men Type: BLOOD SPECIMENOrdering Facility: [facility] Address: [address] [place] [address] Performed By: #### 5 7021-8 ####[facility] LABCLIA [id number] [place] [address] [place] Immature granulocytes/100 WBC (Bld) 0.4 % Normal [facility] Comment on above: Order Comment: Speci men Type: BLOOD SPECIMENOrdering Facility: [facility] Address: [address] [place] [address] Performed By: #### 5 7021-8 ####[facility] LABCLIA [id number] [place] [address] [place] Lymphocytes (Bld) [#/Vol] 3.96 10*3/uL Normal 1.00-4.00 [facility] Comment on above: Order Comment: Speci men Type: BLOOD SPECIMENOrdering Facility: [facility] Address: [address] [place] [address] Performed By: #### 5 7021-8 ####[facility] LABCLIA [id number] [place] [address] [place] Lymphocytes/100 WBC (Bld) 43.7 % Normal [facility] Comment on above: Order Comment: Speci men Type: BLOOD SPECIMENOrdering Facility: [facility] Address: [address] [place] [address] Performed By: #### 5 7021-8 ####[facility] LABCLIA [id number] [place] [address] [place] MCH (RBC) [Entitic mass] 27.6 pg Normal 26.0-34.0 [facility] Comment on above: Order Comment: Speci men Type: BLOOD SPECIMENOrdering Facility: [facility] Address: [address] [place] [address] Performed By: #### 5 7021-8 ####[facility] LABCLIA [id number] [place] [address] [place] MCHC (RBC) [Mass/Vol] 31.3 g/dL Normal 30.5-36.0 [facility] Comment on above: Order Comment: Speci men Type: BLOOD SPECIMENOrdering Facility: [facility] Address: [address] [place] [address] Performed By: #### 5 7021-8 ####[facility] LABIA [id number] [place] [address] [place] MCV (RBC) [Entitic vol] 88.2 fL Normal 80.0-100.0 [facility] Comment on above: Order Comment: Speci men Type: BLOOD SPECIMENOrdering Facility: [facility] Address: [address] [place] [address] Performed By: #### 5 7021-8 ####[facility] LABIA [id number] [place] [address] [place] Monocytes (Bld) [#/Vol] 0.68 10*3/uL Normal <0.87 [facility] Comment on above: Order Comment: Speci men Type: BLOOD SPECIMENOrdering Facility: [facility] Address: [address] [place] [address] Performed By: #### 5 7021-8 ####[facility] LABIA [id number] [place] [address] [place] Monocytes/100 WBC (Bld) 7.5 % Normal [facility] Comment on above: Order Comment: Speci men Type: BLOOD SPECIMENOrdering Facility: [facility] Address: [address] [place] [address] Performed By: #### 5 7021-8 ####[facility] LABCLIA [id number] [place] [address] [place] Neutrophils (Bld) [#/Vol] 3.88 10*3/uL Normal 1.45-7.50 [facility] Comment on above: Order Comment: Speci men Type: BLOOD SPECIMENOrdering Facility: [facility] Address: [address] [place] [address] Performed By: #### 5 7021-8 ####[facility] LABCLIA [id number] [place] [address] [place] Neutrophils/100 WBC (Bld) 42.8 % Normal [facility] Comment on above: Order Comment: Speci men Type: BLOOD SPECIMENOrdering Facility: [facility] Address: [address] [place] [address] Performed By: #### 5 7021-8 ####[facility] LABCLIA [id number] [place] [address] [place] Nucleated RBC (Bld) [#/Vol] 10*3/uL Normal <0.01 [facility] Comment on above: Order Comment: Speci men Type: BLOOD SPECIMENOrdering Facility: [facility] Address: [address] [place] [address] Performed By: #### 5 7021-8 ####[facility] LABIA [id number] [place] [address] [place] Nucleated RBC/100 WBC (Bld) [Ratio] 0.0 /100 WBC Normal [facility] Comment on above: Order Comment: Speci men Type: BLOOD SPECIMENOrdering Facility: [facility] Address: [address] [place] [address] Performed By: #### 5 7021-8 ####[facility] LABIA [id number] [place] [address] [place] Platelet mean volume (Bld) [Entitic vol] 9.6 fL Normal 9.0-12.7 [facility] Comment on above: Order Comment: Speci men Type: BLOOD SPECIMENOrdering Facility: [facility] Address: [address] [place] [address] Performed By: #### 5 7021-8 ####[facility] LABIA [id number] [place] [address] [place] Platelets (Bld) [#/Vol] 418 10*3/uL High 150-400 [facility] Comment on above: Order Comment: Speci men Type: BLOOD SPECIMENOrdering Facility: [facility] Address: [address] [place] [address] Performed By: #### 5 7021-8 ####[facility] LABCLIA [id number] [address] [address] [place] RBC (Bld) [#/Vol] 4.49 10*6/uL Normal 3.90-5.20 [facility] Comment on above: Order Comment: Speci men Type: BLOOD SPECIMENOrdering Facility: [facility] Address: [address] [place] [address] Performed By: #### 5 7021-8 ####[facility] LABCLIA [id number] [place] [address] [place] WBC (Bld) [#/Vol] 9.07 10*3/uL Normal 3.70-11.00 [facility] Comment on above: Order Comment: Speci men Type: BLOOD SPECIMENOrdering Facility: [facility] Address: [address] [place] [address] Performed By: #### 5 7021-8 ####[facility] LABCLIA [id number] [place] [address] [place] Comprehensive metabolic 2000 panelon 02-22-2024 Albumin [Mass/Vol] 4.1 g/dL Normal 3.9-4.9 [facility] Comment on above: Order Comment: Speci men Type: BLOOD SPECIMENOrdering Facility: [facility] Address: [address] [place] [address] Performed By: #### 2 4331-1, 3016-3, 69129-6 ####[facility] LABCLIA [id number] [place] [address] [place] ALP [Catalytic activity/Vol] 81 U/L Normal 34-123 [facility] Comment on above: Order Comment: Speci men Type: BLOOD SPECIMENOrdering Facility: [facility] Address: [address] [place] [id number] Performed By: #### 2 4331-1, 3015-3, ####[facility] LABCLIA [id number] [place] [id number] [place] ALT [Catalytic activity/Vol] 22 U/L Normal 7-38 [facility] Comment on above: Order Comment: Speci men Type: BLOOD SPECIMENOrdering Facility: [facility] Address: [address] [place] [address] Performed By: #### 2 4331-1, 3, ####[facility] LABIA [id number] [place] [address] [place] Anion gap [Moles/Vol] 11 mmol/L Normal 9-18 [facility] Comment on above: Order Comment: Speci men Type: BLOOD SPECIMENOrdering Facility: [facility] Address: [address] [place] [address] Performed By: #### 2 4331-1, 3, ####[facility] LABIA [id number] [place] [address] [place] AST [Catalytic activity/Vol] 30 U/L Normal 13-35 [facility] Comment on above: Order Comment: Speci men Type: BLOOD SPECIMENOrdering Facility: [facility] Address: [address] [id number] Performed By: #### 2 4331-1, 3, ####[facility] LABIA [id number] [place] [id number] [place] Bilirubin [Mass/Vol] 0.3 mg/dL Normal 0.2-1.3 [facility] Comment on above: Order Comment: Speci men Type: BLOOD SPECIMENOrdering Facility: [facility] Address: [address] [place] [address] Performed By: #### 2 4331-1, 3015-3, 14791-8 ####[facility] LABCLIA [id number] [address] [address] [place] Calcium [Mass/Vol] 9.7 mg/dL Normal 8.5-10.2 [facility] Comment on above: Order Comment: Speci men Type: BLOOD SPECIMENOrdering Facility: [facility] Address: [address] [place], [place] [address] Performed By: #### 2 4331-1, 3015-3, ####[facility] LABIA [id number] [place] [id number] [place] Chloride [Moles/Vol] 103 mmol/L Normal 97-105 [facility] Comment on above: Order Comment: Speci men Type: BLOOD SPECIMENOrdering Facility: [facility] Address: [address] [place], [place] [address] Performed By: #### 2 4331-1, 3015-3, ####[facility] LABIA [id number] [place] [id number] [place] CO2 [Moles/Vol] 24 mmol/L Normal 22-30 [facility] Comment on above: Order Comment: Speci men Type: BLOOD SPECIMENOrdering Facility: [facility] Address: [address] [place] [address] Performed By: #### 2 4331-1, 3015-3, 06861-3 ####[facility] LABIA [id number] [address] [address] [place] Creatinine [Mass/Vol] 0.73 mg/dL Normal 0.58-0.96 [facility] Comment on above: Order Comment: Speci men Type: BLOOD SPECIMENOrdering Facility: [facility] Address: [address] [place] [address] Performed By: #### 2 4331-1, 3015-3, 61754-4 ####[facility] LABIA [id number] [place] [address] [place] Creatinine and Glomerular filtration rate.predicted panel (S/P/Bld) 95 mL/min/1.73m??? Normal >=60 [facility] Comment on above: Order Comment: Avery luevano Type: BLOOD SPECIMENOrdering Facility: [facility] Address: [address] [place] [address] Result Comment: Violet mated Glomerular Filtration Rate [...] GFR. Performed By: #### 2 4331-1, 3016-3, 67050-8 ####[facility] LABIA [id number] [place] [address] [place] Glucose [Mass/Vol] 84 mg/dL Normal 74-99 [facility] Comment on above: Order Comment: Avery luevano Type: BLOOD SPECIMENOrdering Facility: [facility] Address: [address] [place] [address] Result Comment: The [place] Diabetes Association (ADA) provides guidance for cutoff [...] Standards of Medical Care in Diabetes 2016, [place] [employer]. Diabetes Care. 2016.39(Suppl 1). Performed By: #### 2 4331-1, 3016-3, ####[facility] LABCLIA [id number] [address] [address] [place] Potassium [Moles/Vol] 4.6 mmol/L Normal 3.7-5.1 [facility] Comment on above: Order Comment: Speci men Type: BLOOD SPECIMENOrdering Facility: [facility] Address: [address] [place] [address] Performed By: #### 2 4331-1, 3015-12, ####[facility] LABCLIA [id number] [address] [address] [place] Protein [Mass/Vol] 7.0 g/dL Normal 6.3-8.0 [facility] Comment on above: Order Comment: Speci men Type: BLOOD SPECIMENOrdering Facility: [facility] Address: [address] [place] [address] Performed By: #### 2 4331-1, 3015-12, ####[facility] LABCLIA [id number] [address] [address] [place] Sodium [Moles/Vol] 138 mmol/L Normal 136-144 [facility] Comment on above: Order Comment: Speci men Type: BLOOD SPECIMENOrdering Facility: [facility] Address: [address] [place] [address] Performed By: #### 2 4331-1, 3015-12, ####[facility] LABCLIA [id number] [address] [address] [place] Urea nitrogen [Mass/Vol] 13 mg/dL Normal 7-21 [facility] Comment on above: Order Comment: Speci men Type: BLOOD SPECIMENOrdering Facility: [facility] Address: [address] [place] [address] Performed By: #### 2 4331-1, 3015-12, ####[facility] LABCLIA [id number] [address] [place] HbA1c (Bld)on 02-22-2024 Average glucose Estimated from glycated hemoglobin (Bld) [Mass/Vol] 117 mg/dL Normal [facility] Comment on above: Order Comment: Avery luevano Type: BLOOD SPECIMENOrdering Facility: [facility] Address: [address] [place] [address] Result Comment: eAG: (Estimated average glucose) is a calculated value from HgbA1c and is escrow representative of the average blood glucose level in the last 2-3 month period. Performed By: #### 5 5454-3 ####[facility] LABCLIA [id number] [address] STATES OF [facility] HbA1c (Bld) [Mass fraction] 5.7 % High 4.3-5.6 [facility] Comment on above: Order Comment: Avery luevano Type: BLOOD SPECIMENOrdering Facility: [facility] Address: [address] [place] [address] Result Comment: Amer ican Diabetes Association guidelines indicate that patients with HgbA1c in the range 5.7-6.4% are at increased risk for development of diabetes, and intervention by lifestyle modification may be beneficial. HgbA1c greater or equal to 6.5% is considered diagnostic of diabetes. Performed By: #### 5 5454-3 ####[facility] LABCLIA [id number] [address] OF [place] Lipid 1996 panelon 4 Cholesterol [Mass/Vol] 209 mg/dL High <200 [facility] Comment on above: Order Comment: Avery luevano Type: BLOOD SPECIMENOrdering Facility: [facility] Address: [address] [place] [address] Result Comment: <200 mg/dL, Desirable 200-239 mg/dL, Borderline high >239 mg/dL, High Performed By: #### 2 4331-1, 3016-3, 36306-7 ####[facility] LABCLIA [id number] [address] STATES OF [place] Cholesterol in HDL [Mass/Vol] 38 mg/dL Low >39 [facility] Comment on above: Order Comment: Speci men Type: BLOOD SPECIMENOrdering Facility: [facility] Address: [address] [place] [address] Result Comment: 40-5 9 mg/dL, Acceptable >59 mg/dL, High: Negative risk factor for coronary heart disease <40 mg/dL, Low: Positive risk factor for coronary heart disease Performed By: #### 2 4331-1, 3015-3, ####[facility] LABCLIA [id number] [address] STATES OF [place] Cholesterol in LDL [Mass/Vol] 134 mg/dL High <100 [facility] Comment on above: Order Comment: Avery bassem Type: BLOOD SPECIMENOrdering Facility: [facility] Address: [address] [place] [address] Result Comment: <100 mg/dL, Optimal 100-129 mg/dL, Near optimal/above optimal 130-159 mg/dL, Borderline high 160-189 mg/dL, High >189 mg/dL, Very high Secondary prevention optimal LDL Cholesterol levels are recommended to be < 70 mg/dL Performed By: #### 2 4331-1, 3015-12, ####[facility] LABCLIA [id number] [address] STATES OF [place] Cholesterol in LDL/Cholesterol in HDL [Mass ratio] 3.53 {ratio} High <2.54 [facility] Comment on above: Order Comment: Charlai men Type: BLOOD SPECIMENOrdering Facility: [facility] Address: [address] [place] [address] Result Comment: Kwame pride: 1. National Cholesterol Education Program ATP III Guideline At-A-Glance Quick Desk Reference: National Heart, Lung, and Blood [place]. National Institutes of Health. 2001: NIH Publication No. 01-3305. 2. An International Atherosclerosis Society position paper: global recommendations for the management of dyslipidemia: executive summary, Atherosclerosis. 2014: 232(2):410-413. Performed By: #### 2 4331-1, 3015-3, ####[facility] LABCLIA [id number] [address] [address] [place] Cholesterol in VLDL [Mass/Vol] 37 mg/dL High <30 [facility] Comment on above: Order Comment: Speci men Type: BLOOD SPECIMENOrdering Facility: [facility] Address: [address] [place] [address] Performed By: #### 2 4331-1, 3, ####[facility] LABCLIA [id number] [place] [address] [place] Cholesterol non HDL [Mass/Vol] 171 mg/dL High <130 [facility] Comment on above: Order Comment: Speci men Type: BLOOD SPECIMENOrdering Facility: [facility] Address: [address] [place] [address] Result Comment: <130 mg/dL, Optimal 130-159 mg/dL, Near optimal/above optimal 160-189 mg/dL, Borderline high 190-219 mg/dL, High >219 mg/dL, Very high Secondary prevention optimal non HDL Cholesterol levels are recommended to be <100 mg/dL Performed By: #### 2 4331-1, 3015-3, ####[facility] LABCLIA [id number] [address] [address] [place] Cholesterol.total/Ch olesterol in HDL [Mass ratio] 5.50 {ratio} High <5.10 [facility] Comment on above: Order Comment: Speci men Type: BLOOD SPECIMENOrdering Facility: [facility] Address: [address] [place] [id number] Performed By: #### 2 4331-1, 3015-3, ####[facility] LABCLIA [id number] [address] [address] [place] FASTING TIME 12 hrs Normal [facility] Comment on above: Order Comment: Speci men Type: BLOOD SPECIMENOrdering Facility: [facility] Address: [address] [place] [address] Performed By: #### 2 4331-1, 6-3, 29646-7 ####[facility] LABCLIA [id number] [place] [address] [place] Triglyceride [Mass/Vol] 184 mg/dL High <150 [facility] Comment on above: Order Comment: Speci men Type: BLOOD SPECIMENOrdering Facility: [facility] Address: [address] [place] [address] Result Comment: <150 mg/dL, Normal 150-199 mg/dL, Borderline high 200-499 mg/dL, High >499 mg/dL, Very high Performed By: #### 2 4331-1, 3016-3, 04609-7 ####[facility] LABCLIA [id number] [place] [address] [place] TSH SerPl-aCncon 02-22-2024 TSH Qn 2.930 m[IU]/L Normal 0.270-4.200 [facility] Comment on above: Order Comment: Speci men Type: BLOOD SPECIMENOrdering Facility: [facility] Address: [address] [place] [address] Performed By: #### 2 4331-1, 3016-3, 99490-0 ####[facility] LABCLIA [id number] [address] STATES OF [place] CNOVon 02-21-2024 CNOV Office Visit (AGFAMPLE) SUHAS ARCOS ([id number]) 1965 F Date Time Provider Department 02/21/24 10:40 AM NORA MCCARTNEY During your visit today, we recorded the following information about you: Temperature Pulse Respiration Blood pressure 98 degrees 82/minute 16/minute 122/70 Weight Height 62.6 kg 1.524 m Nora Mccartney ENGINEERING OPERATIONS LEADER.SERVICE GIRL 02/21/2024 5:18 PM Signed [facility] Nora Mccartney ENGINEERING OPERATIONS LEADER-SERVICE GIRL [address] [place] [address] Dept Dept. Visit Date: February 21, 2024 Ms.Jaswinder Arcos Date of : 1965 MRN/E #: [id number] Chief Complaint: Patient presents with: Establish Care [...] Brother Age of Onset: (Not Specified) Comment: [place] Problem: Diabetes Relation: Brother Age of Onset: (Not Specified) Problem: Coronary Artery Disease Relation: Brother Age of Onset: (Not Specified) Comment: [place] ALLERGIES Allergen Reactions Sulfa (Sulfonamide * itching, [...] Normal rat (more content not included)... Normal [facility] CNOVon 02-05-2024 CNOV Office Visit (UCWSTR ) SUHAS ARCOS ([id number]) 1965 F Date Time Provider Department 02/05/24 4:30 PM JULISSA JOHNSON [facility] During your visit today, we recorded the following information about you: Temperature Pulse Respiration Blood pressure 97.2 degrees 79/minute 18/minute 126/76 Weight 62.9 kg Julissa Johnson PA 02/05/2024 4:59 PM Signed This note was created using Popular Paysriter. Subjective Suhas Arcos is a 58 year [...] mi Diabetes Brother Coronary Artery Disease Brother [place] Social History Tobacco Use Smoking status: Never [...] discussed in detail warranting prompt ER evaluation. PRNICE Colón Referring Provider: SELF [200] Allergies As of Date: 02/05/2024 Noted Allergy Reaction SULFA (SULFONAMIDE ANTIBIOTICS) 10/19/2006 Comments: (more content not included)... Normal [facility] CNOVon 09-12-2023 CNOV Office Visit (UCWSTR ) SUHAS ARCOS ([id number]) 1965 F Date Time Provider Department 09/12/23 3:15 PM JULISSA JOHNSON [facility] [place] During your visit today, we recorded the following information about you: Temperature Pulse Respiration Blood pressure 97.5 degrees 61/minute 18/minute 138/82 Weight 63.4 kg Julissa Johnson PA 09/12/2023 4:05 PM Signed This note was created using [employer] P[employer]. Subjective Suhas Arcos is a 58 year [...] mi Diabetes Brother Coronary Artery Disease Brother [place] Social History Tobacco Use Smoking status: Never [...] sinusitis [J32.9, B96.89] Order(s):XR CHEST 2V FRONTAL/LAT [[id number] (more content not included)... Normal [facility] XR CHEST 2V FRONTAL/LATon XR CHEST [...] the spine. IMPRESSION: No acute radiographic abnormality. Asw/Asuw Tactical Air Controller: [facility] Transcribe Date/Time: Sep 12 2023 3:49P Dictated by : JESSICA HU MD This examination was interpreted and the report reviewed and electronically signed by: JESSICA HU MD on Sep 12 2023 3:49PM EST [id number] Normal [facility] XR Chest PA and Lateralon IMPRESSION: No acute radiographic abnormality. Asw/Asuw Tactical Air Controller: [facility] Transcribe Date/Time: Sep 12 2023 3:49P [...] in the spine. DIVISION OF RADIOLOGY Provider, [facility] - 09/12/2023 * * *Final Report* * [...] spine. IMPRESSION IMPRESSION: No acute radiographic abnormality. Asw/Asuw Tactical Air Controller: [facility] Transcribe Date/Time: Sep 12 2023 3:49P Dictated by : JESSICA HU MD This examination was interpreted and the report reviewed and electronically signed by: JESSICA HU MD on Sep 12 2023 3:49PM EST [facility] Radiology Study observation (narrative) [facility] XR Chest PA and LateralOrder ed By: Ccf Provider on 09-12-2023 [facility] Nidhi 08-28-2023 [employer] [facility] SU[facility]COS ([id number]) 1965 F Date Time Provider Department 08/28/23 WEN MUNIZ [facility] During your visit today, we recorded the following information about you: Wen Muniz APRN.SERVICE GIRL 08/28/2023 7:38 AM Signed Please notify that [...] of func*10/04/2010 11/16/2015 ASCUS on Pap smear [[id number]] 08/23/2011 Blood in stool [K92.1] 08/31/2011 03/24/2014 Anemia, unspecified [D64.9] 08/31/2011 06/28/2016 Iron deficiency anemia [D50.9] 09/28/2011 Neck pain [M54.2] 01/23/2013 06/28/2016 Cervicalgia [M54.2] 11/06/2013 Adjustment disorder with mixed anxiety and depr*12/29/2013 Psychic factors associated with diseases classi*12/29/2013 Sciatica [M54.30] 02/23/2015 Tension-type headache, not intractable [G44.209]01/27/2016 Abnormal mammogram [R92.8] 07/06/2017 Encounter Status:Closed by LIZZETH JACKSON on 08/28/23 [facility] CNOVon 08-27-2023 CNOV Office Visit (WSTR ) SUHAS ARCOS ([id number]) 1965 F Date Time Provider Department 08/27/23 12:15 PM JULIAN MIGUEL [facility] [place] During your visit today, we recorded the [...] no wheezes or crackles, no increased [facility] 11/16/22: EST GFR - AA [...] NAAT, ROUTINE - We will call in [place] if positive. Julian Miguel MD Allergies As of Date: 08/27/2023 Noted Allergy Reaction SULFA (SULFONAMIDE ANTIBIOTICS) 10/19/2006 Comments: itching, rash Date Reviewed: 08/27/2023 Reviewed by: Rut Watkins MA - Fully Assessed Reason for Visit: Head Congestion [234] Cmt: Cough, L ear pain, ST, runny nose x4 days Primary Visit Diagnosis:URI, acute [J06.9] Order(s):COVID AND INFLUENZA A/B NAAT, ROUTINE [SQCOVFLU] Order #: [id number] FUTURE COVID AND INFLUENZA A/B NAAT, ROUTINE [SQCOVFLU] Order #: [id number]. #:[id number] Prescriptions as of 08/27/2023 - atenolol (TENORMIN) [...] of func*10/04/2010 11/16/2015 ASCUS on Pap smear [[id number]] 08/23/2011 Blood in stool [K92.1] 08/31/2011 03/24/2014 [...] on 11/14 (more content not included)... Normal [facility] FLUABV + SARS-CoV-2 Pnl Resp LILIBETH+prbon 08-27-2023 Influenza virus A and B RNA and SARS-CoV-2 (COVID-19) N gene panel LILIBETH+probe (Resp) COVID 19 RESULT: Not detected The method used is RT-PCR or an equivalent NAAT method. Reference Range (the expected result in uninfected individuals): Not detected INFLUENZA A PCR: Detected INFLUENZA B PCR: Not detected Abnormal [facility] Comment on above: Performed By: #### 9 5422-2 ####[facility] LABCLIA [id number] [place] [address] [place] Vital Signs Date Time Vital Sign Value Performing Clinician Kristyn villagran 07-21-2024 09:05-0400 Body height 152.4 cm Nora Queden ENGINEERING OPERATIONS LEADER.SERVICE GIRL Work Phone: [facility] 07-21-2024 09:05-0400 Body mass index (BMI) [Ratio] 26.76 kg/m2 Nora Queden ENGINEERING OPERATIONS LEADER.SERVICE GIRL Work Phone: [facility] 07-21-2024 09:05-0400 Body temperature 98.4 [degF] Nora Queden ENGINEERING OPERATIONS LEADER.SERVICE GIRL Work Phone: [facility] 07-21-2024 09:05-0400 Body weight 62.14 kg Nora Queden ENGINEERING OPERATIONS LEADER.SERVICE GIRL Work Phone: [facility] 07-21-2024 09:05-0400 Diastolic blood pressure 60 mm[Hg] Nora Queden ENGINEERING OPERATIONS LEADER.SERVICE GIRL Work Phone: [facility] 07-21-2024 09:05-0400 Heart rate 72 /min Nora Queden ENGINEERING OPERATIONS LEADER.SERVICE GIRL Work Phone: [facility] 07-21-2024 09:05-0400 SaO2% (BldA) [Mass fraction] 98 % Nora Queden ENGINEERING OPERATIONS LEADER.SERVICE GIRL Work Phone: [facility] 07-21-2024 09:05-0400 Systolic blood pressure 122 mm[Hg] Nora Queden ENGINEERING OPERATIONS LEADER.SERVICE GIRL Work Phone: [facility] 03-29-2024 12:23-0400 Body mass index (BMI) [Ratio] 26.39 kg/m2 Julissa MORRISON Work Phone: [facility] 03-29-2024 12:23-0400 Body temperature 98.4 [degF] Krislyn Aberegg PA Work Phone: [facility] 03-29-2024 12:230400 Body weight 61.3 kg Krislyn Aberegg PA Work Phone: [facility] 03-29-2024 12:23-0400 Diastolic blood pressure 93 mm[Hg] Krislyn Aberegg PA Work Phone: [facility] 03-29-2024 12:23-0400 Heart rate 75 /min Krislyn Aberegg PA Work Phone: [facility] 03-29-2024 12:230400 Respiratory rate 18 /min Krislyn Aberegg PA Work Phone: [facility] 03-29-2024 12:23-0400 SaO2% (BldA) [Mass fraction] 100 % Krislyn Aberegg PA Work Phone: [facility] 03-29-2024 12:23-0400 Systolic blood pressure 154 mm[Hg] Krislyn Aberegg PA Work Phone: [facility] 02-21-2024 10:29040 Body height 152.4 cm Nora Queden ENGINEERING OPERATIONS LEADER.SERVICE GIRL Work Phone: [facility] 02-21-2024 10:290400 Body mass index (BMI) [Ratio] 26.95 kg/m2 Nora Queden ENGINEERING OPERATIONS LEADER.SERVICE GIRL Work Phone: [facility] 02-21-2024 10:29040 Body temperature 98.01 [degF] Nora Queden ENGINEERING OPERATIONS LEADER.SERVICE GIRL Work Phone: [facility] 02-21-2024 10:29040 Body weight 62.6 kg Nora Queden ENGINEERING OPERATIONS LEADER.SERVICE GIRL Work Phone: [facility] 02-21-2024 10:29-0400 Diastolic blood pressure 70 mm[Hg] Nora Queden ENGINEERING OPERATIONS LEADER.SERVICE GIRL Work Phone: [facility] 02-21-2024 10:29-0400 Heart rate 82 /min Nora Queden ENGINEERING OPERATIONS LEADER.SERVICE GIRL Work Phone: [facility] 02-21-2024 10:29-0400 Respiratory rate 16 /min Nora Queden ENGINEERING OPERATIONS LEADER.SERVICE GIRL Work Phone: [facility] 02-21-2024 10:29-0400 SaO2% (BldA) [Mass fraction] 98 % Nora Queden ENGINEERING OPERATIONS LEADER.SERVICE GIRL Work Phone: [facility] 02-21-2024 10:29-0400 Systolic blood pressure 122 mm[Hg] Nora Queden ENGINEERING OPERATIONS LEADER.SERVICE GIRL Work Phone: [facility] 02-05-2024 16:35-0400 Body mass index (BMI) [Ratio] 28.01 kg/m2 Krislyn Aberegg PA Work Phone: [facility] 02-05-2024 16:35-0400 Body temperature 97.2 [degF] Krislyn Aberegg PA Work Phone: [facility] 02-05-2024 16:35-0400 Body weight 62.9 kg Krislyn Aberegg PA Work Phone: [facility] 02-05-2024 16:35-0400 Diastolic blood pressure 76 mm[Hg] Krislyn Aberegg PA Work Phone: [facility] 02-05-2024 16:35-0400 Heart rate 79 /min Krislyn Aberegg PA Work Phone: [facility] 02-05-2024 16:35-0400 Respiratory rate 18 /min Krislyn Aberegg PA Work Phone: [facility] 02-05-2024 16:35-0400 SaO2% (BldA) [Mass fraction] 96 % Krislyn Aberegg PA Work Phone: [facility] 02-05-2024 16:35-0400 Systolic blood pressure 126 mm[Hg] Krislyn Aberegg PA Work Phone: [facility] 09-12-2023 15:26-0500 Body temperature 97.5 [degF] Krislyn Aberegg PA Work Phone: [facility] 09-12-2023 15:26-0500 Body weight 63.41 kg Krislyn Aberegg PA Work Phone: [facility] 09-12-2023 15:26-0500 Diastolic blood pressure 82 mm[Hg] Krislyn Aberegg PA Work Phone: [facility] 09-12-2023 15:26-0500 Heart rate 61 /min Krislyn Aberegg PA Work Phone: [facility] 09-12-2023 15:26-0500 Respiratory rate 18 /min Krislyn Aberegg PA Work Phone: [facility] 09-12-2023 15:26-0500 SaO2% (BldA) [Mass fraction] 99 % Krislyn Aberegg PA Work Phone: [facility] 09-12-2023 15:26-0500 Systolic blood pressure 138 mm[Hg] Krislyn Aberegg PA Work Phone: [facility] 08-27-2023 12:00-0500 Body temperature 97.59 [degF] Julian Miguel MD Work Phone: [facility] 08-27-2023 12:00-0500 Body weight 64.77 kg Julian Miguel MD Work Phone: [facility] 08-27-2023 12:00-0500 Diastolic blood pressure 78 mm[Hg] Julian Miguel MD Work Phone: [facility] 08-27-2023 12:00-0500 Heart rate 79 /min Julian Miguel MD Work Phone: [facility] 08-27-2023 12:00-0500 Respiratory rate 18 /min Julian Miguel MD Work Phone: [facility] 08-27-2023 12:00-0500 SaO2% (BldA) [Mass fraction] 97 % Julian Miguel MD Work Phone: [facility] 08-27-2023 12:00-0500 Systolic blood pressure 151 mm[Hg] Julian Miguel MD Work Phone: [facility] 02-23-2023 12:24-0400 Body temperature 97.81 [degF] Meera Praisler-Wood ENGINEERING OPERATIONS LEADER.SERVICE GIRL Work Phone: [facility] 02-23-2023 12:24-0400 Body weight 62.69 kg Meera Praisler-Wood ENGINEERING OPERATIONS LEADER.SERVICE GIRL Work Phone: [facility] 02-23-2023 12:24-0400 Diastolic blood pressure 80 mm[Hg] Meera Praisler-Wood ENGINEERING OPERATIONS LEADER.SERVICE GIRL Work Phone: [facility] 02-23-2023 12:24-0400 Heart rate 67 /min Meera Praisler-Wood ENGINEERING OPERATIONS LEADER.SERVICE GIRL Work Phone: [facility] 02-23-2023 12:24-0400 Respiratory rate 16 /min Meera Praisler-Wood ENGINEERING OPERATIONS LEADER.SERVICE GIRL Work Phone: [facility] 02-23-2023 12:24-0400 SaO2% (BldA) [Mass fraction] 99 % Meera Praisler-Wood ENGINEERING OPERATIONS LEADER.SERVICE GIRL Work Phone: [facility] 02-23-2023 12:24-0400 Systolic blood pressure 122 mm[Hg] Meera Praisler-Wood ENGINEERING OPERATIONS LEADER.SERVICE GIRL Work Phone: [facility] 11-14-2022 17:10-0500 Body temperature 96.91 [degF] Meera Praisler-Wood ENGINEERING OPERATIONS LEADER.SERVICE GIRL Work Phone: [facility] 11-14-2022 17:10-0500 Body weight 63.32 kg Meera Praisler-Wood ENGINEERING OPERATIONS LEADER.SERVICE GIRL Work Phone: [facility] 11-14-2022 17:10-0500 Diastolic blood pressure 88 mm[Hg] Meera Praisler-Wood ENGINEERING OPERATIONS LEADER.SERVICE GIRL Work Phone: [facility] 11-14-2022 17:10-0500 Heart rate 76 /min Meera Praisler-Wood ENGINEERING OPERATIONS LEADER.SERVICE GIRL Work Phone: [facility] 11-14-2022 17:10-0500 Respiratory rate 16 /min Meera Praisler-Wood ENGINEERING OPERATIONS LEADER.SERVICE GIRL Work Phone: [facility] 11-14-2022 17:10-0500 SaO2% (BldA) [Mass fraction] 97 % Meera Praisler-Wood ENGINEERING OPERATIONS LEADER.SERVICE GIRL Work Phone: [facility] 11-14-2022 17:10-0500 Systolic blood pressure 138 mm[Hg] Meera Praisler-Wood ENGINEERING OPERATIONS LEADER.SERVICE GIRL Work Phone: [facility] Encounters Encounter Date Encounter Type Care Provider Facility Start: 07-21-2024 End: 07-21-2024 Patient encounter procedure Nora Mccartney ENGINEERING OPERATIONS LEADER.SERVICE GIRL Work Phone: [facility] Comment on above: Moderate episode of recurrent major depressive disorder (HCC) (Primary Dx); Essential hypertension; Chronic pain of left knee; Primary osteoarthritis of left knee; Vitamin D deficiency; Encounter for immunization; Colon cancer screening Start: 07-21-2024 End: 07-21-2024 ambulatory NORA MCCARTNEY Facility:[facility] Start: 07-09-2024 End: 07-09-2024 Refill Nora Mccartney APRN.SERVICE GIRL Work Phone: [facility] Comment on above: Refill Request Start: 06-24-2024 End: 06-24-2024 ambulatory Chayito Norris MA [facility] Comment on above: ED OUTREACH (ED OUTR VIRAL/BRITANY /06/17/2024) Start: 05-30-2024 Telephone encounter Nora Mccartney APRN.SERVICE GIRL Work Phone: [facility] Comment on above: Lab Orders Start: 04-01-2024 ambulatory Beatrice Ewing [facility] Start: 03-30-2024 ambulatory Lata Mensahb PROTECTION OFFICER NURSE O N CALL Comment on above: Return Provider Call Start: 03-30-2024 Telephone encounter Julissa MORRISON Work Phone: [facility] Comment on above: Results Start: 03-29-2024 End: 03-29-2024 ambulatory NORA MCCARTNEY Facility:[facility] Start: 03-29-2024 End: 03-29-2024 Patient encounter procedure Julissa MORRISON Work Phone: [facility] Comment on above: Viral illness (Prima ry Dx) Start: 02-27-2024 Telephone encounter Nora Mccartney ENGINEERING OPERATIONS LEADER.SERVICE GIRL Work Phone: [facility] Comment on above: Results Start: 02-22-2024 End: 02-22-2024 ambulatory NORA MCCARTNEY Facility:[facility] Start: 02-22-2024 Encounter for genera l adult medical examination without abnormal findings CAILIN STEELE [facility] Start: 02-21-2024 End: 02-21-2024 Patient encounter procedure Nora Mccartney ENGINEERING OPERATIONS LEADER.SERVICE GIRL Work Phone: [facility] Comment on above: Well adult exam (Lenka chayito Dx); Essential hypertension; Mild episode of recurrent major depressive disorder (HCC); Vitamin D deficiency; Fatigue, unspecified type; History of iron deficiency; Screening for lipid disorders; Screening for thyroid disorder; Screening for colon cancer; Encounter for screening mammogram for breast cancer Start: 02-21-2024 End: 02-21-2024 Patient encounter status Nora Mccartney ENGINEERING OPERATIONS LEADER.SERVICE GIRL Work Phone: [facility] Work Phone: Start: 02-21-2024 End: 02-21-2024 ambulatory NORA MCCARTNEY Facility:[facility] Start: 02-21-2024 Encounter for genera l adult medical examination without abnormal findings NORA MCCARTNEY [facility] Start: 02-18-2024 End: 02-18-2024 ambulatory CAILIN STEELE Facility:[facility] Start: 02-18-2024 End: 02-18-2024 Patient encounter procedure Rosalio Alfaro MD Work Phone: [facility] Comment on above: Blurred vision, bila teral (Primary Dx); Refractive error; Pseudophakia; Dry eye syndrome, bilateral Start: 02-05-2024 End: 02-05-2024 [facility] Facility:[facility] Start: 02-05-2024 End: 02-05-2024 Patient encounter procedure Julissa MORRISON Work Phone: [facility] Comment on above: Bacterial sinusitis (Primary Dx); Fatigue, unspecified type Start: 09-12-2023 End: 09-12-2023 Subsequent hospital visit by physician [facility] Work Phone: Radiology Comment on above: Acute cough [R05.1] Start: 09-12-2023 End: 09-12-2023 ambulatory [facility] Facility:[facility] Start: 09-12-2023 End: 09-12-2023 Patient encounter procedure Julissa Johnson PA Work Phone: [facility] Comment on above: Acute cough (Primary Dx); Bacterial sinusitis Start: 08-28-2023 Telephone encounter Wen calderón APRN.SERVICE GIRL Work Phone: [facility] Comment on above: Results Start: 08-27-2023 End: 08-27-2023 ambulatory [facility] Facility:[facility] Start: 08-27-2023 End: 08-27-2023 Patient encounter procedure Julian Miguel MD Work Phone: [facility] Comment on above: URI, acute (Primary Dx) Start: 02-23-2023 End: 02-23-2023 Patient encounter procedure Meera Pa APRN.SERVICE GIRL Work Phone: [facility] Comment on above: Rash (Primary Dx) Start: 11-14-2022 End: 11-14-2022 Patient encounter procedure Meera Pa APRN.SERVICE GIRL Work Phone: [facility] Comment on above: Arthritis pain (Prim malathi Dx); Essential hypertension Procedures Date Procedure Procedure Detail Performing Clinician Start: 02-22-2024 Lipid 1996 panel - S maverick or Plasma Nora Mccartney APRN.SERVICE GIRL Work Phone: Start: 09-12-2023 Radiologic exam ches t 2 views Julissa MORRISON Work Phone: Start: 06-29-2017 Mammography Meera Mendez APRN.SERVICE GIRL Work Phone: Start: 05-02-2016 Lipid 1996 panel - S maverick or Plasma Julian Miguel MD Work Phone: Start: 09-04-2011 Colonoscopy Meera Mendez APRN.SERVICE GIRL Work Phone: Plan of Treatment Date Care Activity Detail Author Start: 04-01-2030 Urine microalbumin profile DTaP,Tdap,Td Vaccine (3 - Td or Tdap) [facility] Start: 02-21-2029 Lipid panel Lipid Screening [facility] Start: 02-21-2027 Diabetes Screening Diabetes Screenin g [facility] Start: 07-21-2025 Annual PCP Team Cylinder Sander Operator zeke Disease Visit Annual PCP Team Chronic Disease Visit [facility] Start: 07-21-2025 Anxiety Screening Anxiety Screening [facility] Comment on above: Postponed from 06/22 (Declined at this time) Start: 07-21-2025 BP Controlled (<130/80) BP Controlle d (<130/80) [facility] Start: 07-21-2025 Covid-19 Vaccine () Covid-19 Vaccine () [facility] Comment on above: Postponed from 06/15 (Declined at this time) Start: 02-20-2025 Annual PCP Team Cylinder Sander Operator zeke Disease Visit Annual PCP Team Chronic Disease Visit [facility] Start: 02-20-2025 BP Controlled (<130/80) BP Controlle d (<130/80) [facility] Start: 02-20-2025 Covid-19 Vaccine (4 - 2023-24 season) Covid-19 Vaccine () [facility] Comment on above: Postponed from 06/15 (Declined at this time) Start: 02-20-2025 HIV screening HIV Screening [facility] Comment on above: Postponed from 06/22 (Declined at this time) Start: 02-04-2025 BP Controlled (<130/80) BP Controlle d (<130/80) [facility] Start: 08-25-2024 End: 08-25-2024 Patient encounter procedure 08/25/2024 10:40 AM EST Office Visit [facility] [address] [place] [address] Nora Mccartney APRN.SERVICE GIRL [address] [place] [address] 6 MTH F/U HYPERLIPIDEMIA AND HTN [facility] Comment on above: 6 MTH F/U HYPERLIPID EMIA AND HTN Start: 07-21-2024 End: 07-21-2024 Patient encounter procedure 07/21/2024 9:20 AM EDT Office Visit [facility] [address] [place] [address] Nora Mccartney APRN.SERVICE GIRL [address] [place] [address] med refill [facility] Comment on above: med refill Start: 06-15-2024 Covid-19 Vaccine ( season) Covid-19 Vaccine () [facility] Start: 06-15-2024 Covid-19 Vaccine ( season) Covid-19 Vaccine () [facility] Start: 06-15-2024 Influenza vaccination C [facility] Start: 03-29-2024 End: 04-12-2024 COVID & INFLUENZA A/B & RSV NAAT, ROUTINE COVID & INFLUENZA A/B & RSV NAAT, ROUTINE Microbiology Routine Viral illness Expected: 03/29/2024, Expires: 04/12/2024 [facility] Work Phone: Comment on above: Expected: 03/29/2024 , Expires: 04/12/2024 Start: 02-21-2024 End: 05-22-2024 25-hydroxyvitamin D3 [Mass/volume] in Serum or Plasma VITAMIN D 25 HYDROXY Lab Routine Well adult exam Fatigue, unspecified type Vitamin D deficiency Expected: 02/21/2024, Expires: 05/22/2024 [facility] Comment on above: Expected: 02/21/2024 , Expires: 05/22/2024 Start: 02-21-2024 End: 05-22-2024 CBC W Auto Differential panel - Blood COMPLETE BLOOD COUNT AND DIFFERENTIAL Lab Routine Well adult exam History of iron deficiency Fatigue, unspecified type Expected: 02/21/2024, Expires: 05/22/2024 [facility] Comment on above: Expected: 02/21/2024 , Expires: 05/22/2024 Start: 02-21-2024 End: 05-22-2024 Comprehensive metabolic 2000 panel - Serum or Plasma COMPREHENSIVE METABOLIC PANEL Lab Routine Well adult exam Expected: 02/21/2024, Expires: 05/22/2024 [facility] Comment on above: Expected: 02/21/2024 , Expires: 05/22/2024 Start: 02-21-2024 End: 05-22-2024 Hemoglobin A1c in Blood HEMOGLOBIN A1C Lab Routine Well adult exam Expected: 02/21/2024, Expires: 05/22/2024 [facility] Comment on above: Expected: 02/21/2024 , Expires: 05/22/2024 Start: 02-21-2024 End: 05-22-2024 Lipid 1996 panel - Serum or Plasma LIPID PANEL BASIC Lab Routine Well adult exam Screening for lipid disorders Expected: 02/21/2024, Expires: 05/22/2024 [facility] Work Phone: Comment on above: Expected: 02/21/2024 , Expires: 05/22/2024 Start: 02-21-2024 End: 05-22-2024 Thyrotropin [Units/volume] in Serum or Plasma THYROID STIMULATING HORMONE Lab Routine Well adult exam Screening for thyroid disorder Expected: 02/21/2024, Expires: 05/22/2024 [facility] Comment on above: Expected: 02/21/2024 , Expires: 05/22/2024 Start: 02-21-2024 End: 02-21-2024 Patient encounter procedure 02/21/2024 10:40 AM EDT Office Visit [facility] [address] [place] [address] Nora Mccartney, ENGINEERING OPERATIONS LEADER.SERVICE GIRL [address] [place] [address] new pt [facility] Comment on above: new pt Start: 08-27-2023 End: 09-10-2023 Influenza virus A and B RNA and SARS-CoV-2 (COVID-19) N gene panel - Respiratory specimen by LILIBETH with probe detection [facility] Work Phone: Comment on above: Expected: 08/27/2023 , Expires: 09/10/2023 Start: 06-15-2023 Covid-19 Vaccine ( season) Covid-19 Vaccine ( season) [facility] Start: 06-15-2023 Influenza vaccination C [facility] Start: 06-15-2022 Influenza vaccination INFLUENZA (#1) [facility] Start: 06-12-2022 Urine microalbumin profile DTAP,TDAP,TD (2 - Td or Tdap) [facility] Start: 11-14-2021 COVID-19 VACCINE (4 - Booster for Pfizer series) COVID-19 VACCINE (4 - Booster for Pfizer series) [facility] Start: 09-04-2021 Colonoscopy COLONOSCOPY [facility] Start: 09-04-2021 COLORECTAL CANCER SCREENING COLORECTAL CANCER SCREENING [facility] Start: 09-04-2021 Screening for malign ant neoplasm of colon [facility] Start: 05-02-2021 Lipid 1996 panel - S maverikc or Plasma Lipid Screening [facility] Start: 05-02-2021 Lipid panel Lipid Screening [facility] Start: 05-02-2021 LIPID SCREEN LIPID SCREEN [facility] Start: 05-02-2019 DIABETES [facility]CREEN [facility] Start: 05-02-2019 Diabetes Screening Diabetes Screenin g [facility] Start: 02-19-2019 ANNUAL PCP TEAM SELLING MANAGER ZEKE DISEASE VISIT ANNUAL PCP TEAM CHRONIC DISEASE VISIT [facility] Start: 06-29-2018 Mammography [facility] Start: 06-29-2018 Screening for malign ant neoplasm of breast Mammogram Screening [facility] Start: 11-11-2017 PAP TESTING PAP TESTING [facility] Start: 11-11-2017 Screening for malign ant neoplasm of cervix [facility] Start: 08-08-2016 HPV TESTING HPV TESTING [facility] Start: 08-08-2016 Screening for malign ant neoplasm of cervix HPV Testing [facility] Start: 2015 SHINGRIX VACCINE (1 of 2) SHINGRIX VACCINE (1 of 2) [facility] Start: 06-20-2013 FECAL OCCULT BLOOD FECAL OCCULT BLOO D [facility] Start: 06-20-2013 Screening for malign ant neoplasm of colon Fecal Occult Blood [facility] Start: 2010 COLOGUARD (FIT-DNA) COLOGUARD (FIT-D NA) [facility] Start: [address] COLONOGRAPHY [facility] Start: 2010 Screening for malign ant neoplasm of colon [facility] Start: 2010 SIGMOIDOSCOPY SIGMOIDOSCOPY [facility] Start: 1984 Hepatitis B Vaccine (1 of 3 - 19+ 3-dose series) Hepatitis B Vaccine (1 of 3 - 19+ 3-dose series) [facility] Start: 1983 ANNUAL PCP TEAM SELLING MANAGER ZEKE DISEASE VISIT ANNUAL PCP TEAM CHRONIC DISEASE VISIT [facility] Start: 1983 Anxiety Screening Anxiety Screening [facility] Start: 1983 BP CONTROLLED (<130/80) BP CONTROLLE D (<130/80) [facility] Start: 1983 HIV SCREENING HIV SCREENING [facility] Start: 1983 HIV screening HIV Screening [facility] Start: 1965 HEPATITIS B (1 of 3 - 3-dose series) HEPATITIS B (1 of 3 - 3-dose series) [facility] Start: 1965 Hepatitis B Vaccine (1 of 3 - 3-dose series) Hepatitis B Vaccine (1 of 3 - 3-dose series) [facility] Im adm prq id subq/i m njxs 1 vaccine IMADM PRQ ID SUBQ/IM NJXS 1 VACC Immunization/Injection Routine Encounter for immunization Ordered: 07/21/2024 [facility] Work Phone: Comment on above: Ordered: 07/21/2024 End: 03-22-2025 MG Breast Screening DOUG SCREENING Radiology Routine Encounter for screening mammogram for breast cancer 1 Occurrences starting 02/21/2024 until 03/22/2025 [facility] Comment on above: 1 Occurrences starti ng 02/21/2024 until 03/22/2025 Immunizations Immunization Date Immunization Notes Care Provider Elo fuentes 07-21-2024 influenza, seasonal, injectable Nora Queden ENGINEERING OPERATIONS LEADER.SERVICE GIRL Work Phone: [facility] 09-19-2021 COVID-19 original vaccine, full dose, monovalent (MODERNA) Nora Queden ENGINEERING OPERATIONS LEADER.SERVICE GIRL Work Phone: [facility] 09-19-2021 influenza, injectabl e, quadrivalent, preservative free Nora Queden ENGINEERING OPERATIONS LEADER.SERVICE GIRL Work Phone: [facility] 09-19-2021 influenza virus vaccine, unspecified formulation Julian Miguel MD Work Phone: [facility] 2020 influenza, injectabl e, quadrivalent, contains preservative Nora Queden ENGINEERING OPERATIONS LEADER.SERVICE GIRL Work Phone: [facility] 04-01-2020 tetanus toxoid, redu yanet diphtheria toxoid, and acellular pertussis vaccine, adsorbed Nora Queden ENGINEERING OPERATIONS LEADER.SERVICE GIRL Work Phone: [facility] 06-10-2019 influenza, injectabl e, quadrivalent, contains preservative Nora Queden ENGINEERING OPERATIONS LEADER.SERVICE GIRL Work Phone: [facility] 07-17-2018 zoster vaccine recombinant Nora Queden ENGINEERING OPERATIONS LEADER.SERVICE GIRL Work Phone: [facility] 07-11-2018 influenza, injectabl e, quadrivalent, preservative free Nora Queden ENGINEERING OPERATIONS LEADER.SERVICE GIRL Work Phone: [facility] 05-21-2018 zoster vaccine recombinant Nora Queden ENGINEERING OPERATIONS LEADER.SERVICE GIRL Work Phone: [facility] 07-07-2016 influenza, injectabl e, quadrivalent, contains preservative Meera Praisler-Wood ENGINEERING OPERATIONS LEADER.[facility] Work Phone: [facility] 08-17-2014 influenza, seasonal, injectable Meera Praisler-Wood ENGINEERING OPERATIONS LEADER.SERVICE GIRL Work Phone: [facility] 09-26-2013 influenza virus vaccine, unspecified formulation Meera Praisler-Wood ENGINEERING OPERATIONS LEADER.SERVICE GIRL Work Phone: [facility] 06-12-2012 tetanus toxoid, redu yanet diphtheria toxoid, and acellular pertussis vaccine, adsorbed Meera Praisler-Wood ENGINEERING OPERATIONS LEADER.[facility] Work Phone: [facility] Work Phone: 10-18-2011 influenza virus vaccine, unspecified formulation Meera Praisler-Wood ENGINEERING OPERATIONS LEADER.[facility] Work Phone: [facility] 10-27-2010 influenza virus vaccine, unspecified formulation Meera Praisler-Wood ENGINEERING OPERATIONS LEADER.[facility] Work Phone: [facility] Payers Date Payer Category Payer Medicaid [id number] 2017 Medicaid [id number] Social History Date Type Detail Facility [facility] Work Phone: Start: 11-14-2022 End: 07-21-2024 Alcohol intake Current non-drinker of alcohol (finding) [facility] Start: 1965 Sex Assigned At Not on file C [facility] Start: 08-27-2023 End: 07-21-2024 History of Social function [facility] Start: 08-27-2023 End: 07-21-2024 Tobacco use panel [facility] Adult Depression Screening Assessment 2 [facility] Clinical Notes 01-23-2013 to 07-21-2024 Chayito Norris MA - 07/21/2024 9:38 AM EDChayito Leung MA - 07/21/2024 9:38 AM EDTPatient InstructionsNora Mccartney APRN.CNP - 07/21/2024 9:12 AM EDTChayito Norris MA - 06/24/2024 8:31 AM EDT Note Date & Type Note [facility] 07-21-2024 Nurse Note Pt. Given regular dose flu with no complaints. Vis given. Chayito Norris MA [facility] 07-21-2024 Nurse Note Pt. Given regular dose flu with no complaints. Vis given. Chayito Norris MA documented in this encounter [facility] 07-21-2024 Instructions Nora Mccartney APRN.CNP - 07/21/2024 9:26 AM EDT Emilie Negro PA-C Orthopaedic Surgery [facility] ([facility]) [address] [place] [address] Appointment:[phone] documented in this encounter [facility] 07-21-2024 Note HNO ID: [id number] Author: NORA MCCARTNEY APRN.CNP Service: ? Author [...] of Onset Cancer Mother throat Heart Brother [place] Diabetes Brother Coronary Artery Disease Brother [place] Current Outpatient Medications Medication Sig Dispense Refill [...] fatigue and unexpected (more content not included)... [facility] 07-21-2024 History of Presen t [...] of Onset Cancer Mother throat Heart Brother [place] Diabetes Brother Coronary Artery Disease Brother [place] Current Outpatient Medications Medication Sig Dispense Refill [...] Cognition and Memory: Cognition normal. Latest Ref [facility] 02/22/2024 WBC 3.70 - 11.00 [...] Abs Lymph 1.00 - 4.00 k/uL 3.96 Stark% % 7.5 Abs Stark <0.87 k/uL 0.68 Eosin% % 4.7 Abs [...] Nora Mccartney APRN.CNP documented in this encounter [facility] 07-09-2024 Telephone encounter Note Patient requesting [...] Please review and advise. Melissa Hernandez MA [facility] 07-09-2024 Miscellaneous Notes Patient requesting refills [...] Melissa Hernandez MA documented in this encounter [facility] 06-24-2024 Note HNO ID: [id number] Author: CHAYITO NORRIS MA Service: ? Author Type: Laborer Pole Crew Type: Progress Notes Filed: 06/24/2024 08:32 Note Text: ED Follow Up: Patient discharged from [facility] ED on 06/17/2024. 1. How are you [...] you able to contact the office or mainframe applications developer provider prior to your ED visit? Not applicable 5. Is there anything else I can do for you today? Not applicable LM ON PT. VM TO CONTACT OFFICE IF SHE NEEDS ANYTHING OR WOULD LIKE A ER FOLLOW UP. Chayito Norris MA [facility] 06-24-2024 History of Presen t illness Narrative ED Follow Up: Patient discharged from [facility] ED on 06/17/2024. 1. How are you [...] you able to contact the office or mainframe applications developer provider prior to your ED visit? Not applicable 5. Is there anything else I can do for you today? Not applicable LM ON PT. VM TO CONTACT OFFICE IF SHE NEEDS ANYTHING OR WOULD LIKE A ER FOLLOW UP. Chayito Norris MA documented in this encounter [facility] 06-24-2024 Note Patient Outreach (AMANDA FAMMATILDA) SUHAS ARCOS ([id number]) 1965 F Date Time Provider Department 06/24/24 CHAYITO NORRIS During your visit today, we recorded the following information about you: Chayito Norris MA 06/24/2024 8:32 AM Signed ED Follow Up: Patient discharged from [facility] ED on 06/17/2024. 1. How are you [...] you able to contact the office or mainframe applications developer provider prior to your ED visit? Not [...] Visit: ED OUTREACH [Other] Cmt: ED OUTREACH [place] 06/17/2024 Prescriptions as of 06/24/2024 - atenolol [...] of func*10/04/2010 11/16/2015 ASCUS on Pap smear [[id number]] 08/23/2011 Blood in stool [K92.1] 08/31/2011 03/24/2014 Anemia, unspecified [D64.9] 08/31/2011 06/28/2016 Iron deficiency anemia [D50.9] 09/28/2011 Neck pain [M54.2] 01/23/2013 06/28/2016 Cervicalgia [M54.2] 11/06/2013 Adjustment disorder with mixed anxiety and depr*12/29/2013 Psychic factors associated with diseases classi*12/29/2013 Sciatica [M54.30] 02/23/2015 Tension-type headache, not intractable [G44.209]01/27/2016 Abnormal mammogram [R92.8] 07/06/2017 Encounter Status:Closed by CHAYITO NORRIS on 06/24/24 [facility] 05-30-2024 Telephone encounter Note ----- Message from Melissa Hernandez MA sent at 02/28/2024 3:53 PM EDT ----- CBC- recheck in 3 months. [facility] 05-30-2024 Miscellaneous Notes ----- Message from Melissa Hernandez MA sent at 02/28/2024 3:53 PM EDT ----- CBC- recheck in 3 months. documented in this encounter [facility] 04-01-2024 Note HNO ID: [id number] Author: BEATRICE EWING LPN Service: ? Author Type: LICENSED NURSE Type: Progress Notes Filed: 04/01/2024 10:24 Note Text: ED Follow Up: Patient discharged from [facility] ED on 03/31/2024. 1. How are you [...] you able to contact the office or mainframe applications developer provider prior to your ED visit? Left message for pt to call office back. 5. Is there anything else I can do for you today? Left message for pt to call office back. [facility] 04-01-2024 History of Presen t illness Narrative ED Follow Up: Patient discharged from [facility] ED on 03/31/2024. 1. How are you [...] you able to contact the office or mainframe applications developer provider prior to your ED visit? Left message for pt to call office back. 5. Is there anything else I can do for you today? Left message for pt to call office back. documented in this encounter [facility] 04-01-2024 Note Patient Outreach (AG FAMPLE) SUHAS ARCOS ([id number]) 1965 F Date Time Provider Department 04/01/24 BEATRICE EWING During your visit today, we recorded the following information about you: Beatrice Ewing LPN 04/01/2024 10:24 AM Signed ED Follow Up: Patient discharged from [facility] ED on 03/31/2024. 1. How are you [...] you able to contact the office or mainframe applications developer provider prior to your ED visit? Left [...] of func*10/04/2010 11/16/2015 ASCUS on Pap smear [[id number]] 08/23/2011 Blood in stool [K92.1] 08/31/2011 03/24/2014 Anemia, unspecified [D64.9] 08/31/2011 06/28/2016 Iron deficiency anemia [D50.9] 09/28/2011 Neck pain [M54.2] 01/23/2013 06/28/2016 Cervicalgia [M54.2] 11/06/2013 Adjustment disorder with mixed anxiety and depr*12/29/2013 Psychic factors associated with diseases classi*12/29/2013 Sciatica [M54.30] 02/23/2015 Tension-type headache, not intractable [G44.209]01/27/2016 Abnormal mammogram [R92.8] 07/06/2017 Encounter Status:Closed by BEATRICE EWING on 04/01/24 [facility] 03-30-2024 Telephone encounter Note Spoke with patient, discussed OTC medications for WISE and bodyaches such as alternating Tylenol and ibuprofen. Suggested f/u appt with pcp to explore further testing for severe bodyaches and headaches, but to proceed to ER sooner if patient feels as though pain is too bad. Rut Watkins MA [facility] 03-30-2024 Miscellaneous Notes Spoke with patient, [...] COVID flu RSV documented in this encounter [facility] 03-30-2024 Telephone encounter Note Patient's called [...] there is no answer Yefri Rodriguez Pss [facility] 03-30-2024 Telephone encounter Note Patient friend calling regarding results. Conferenced to Yefri in [facility] [employer] [facility] at phone number ([phone]) for assistance. Lata Friend LPN [facility] 03-30-2024 Miscellaneous Notes Patient friend calling regarding results. Conferenced to Yefri in [facility] [employer] [facility] at phone number ([phone]) for assistance. Lata Friend LPN documented in this encounter [facility] 03-30-2024 Telephone encounter Note Left VM instructing patient to return call to receive results. Rut Watkins MA [facility] 03-30-2024 Telephone encounter Note Negative for COVID flu RSV [facility] 03-29-2024 Note HNO ID: [id number] Author: JULISSA JOHNSON PA Service: ? Author Type: Physician Rough Rib Grader Type: Progress Notes Filed: 03/29/2024 12:35 Note Text: This note was created using [employer]. Subjective Suhas Arcos is a 58 year [...] of Onset Cancer Mother throat Heart Brother [place] Diabetes Brother Coronary Artery Disease Brother [place] Social History Tobacco Use Smoking status: Never [...] detail warranting prompt ER evaluation. PRINCE Colón [facility] 03-29-2024 History of Presen t illness Narrative This note was created using [employer]. Subjective Suhas Arcos is a 58 year [...] of Onset Cancer Mother throat Heart Brother [place] Diabetes Brother Coronary Artery Disease Brother [place] Social History Tobacco Use Smoking status: Never [...] evaluation. PRINCE Colón documented in this encounter [facility] 03-29-2024 Instructions Julissa Johnson PA - [...] with any congestion. documented in this encounter [facility] 02-28-2024 Telephone encounter Note Patient is informed reminder placed Melissa Hernandez MA [facility] 02-28-2024 Miscellaneous Notes Patient is informed [...] minutes a week. documented in this encounter [facility] 02-27-2024 Telephone encounter Note Please call [...] Increase exercise at 150 minutes a week. [facility] 02-21-2024 Instructions Nora Mccartney APRN.CNP - 02/21/2024 10:59 AM EDT [facility]- Call [phone] Laboratory (Appointment Recommended) Sunday: Closed Sunday: 7 a.m. - 5 p.m. Sunday: 7 a.m. - 5 p.m. Sunday: 7 a.m. - 5 p.m. : 7 a.m. - 5 p.m. Sunday: 7 a.m. - 5 p.m. Sunday: 7:30 a.m. - Noon [facility] Outpatient Lab Hours For your convenience, the outpatient laboratory is open during the following hours: Sunday- Sunday 7 a.m. - 4:30 p.m. Sunday: 8 a.m. - 11:45 a.m. The outpatient lab is closed on Sundays and . [facility] Radiology testing- call [place] [facility] at [phone] Fast for 10 hours. Water is ok. documented in this encounter [facility] 02-21-2024 Note HNO ID: [id number] Author: NORA MCCARTNEY APRN.SERVICE GIRL Service: ? Author Type: Nurse Practitioner Type: Progress Notes Filed: 02/21/2024 17:18 Note Text: [facility] Nora Mccartney APRN-SERVICE GIRL [address] [place] [address] Dept Dept. Visit Date: February 21, 2024 Ms.Jaswinder Arcos Date of : 1965 MRN/E #: [id number] Chief Complaint: Patient presents with: Establish Care [...] Brother Age of Onset: (Not Specified) Comment: [place] Problem: Diabetes Relation: Brother Age of Onset: (Not Specified) Problem: Coronary Artery Disease Relation: Brother Age of Onset: (Not Specified) Comment: [place] ALLERGIES Allergen Reactions Sulfa (Sulfonamide * itching, [...] and dry. Neur (more content not included)... [facility] 02-21-2024 History of Presen t illness Narrative Images from the original note were not included. [facility] Nora Mccartney ENGINEERING OPERATIONS LEADER-SERVICE GIRL [address] [place] [address] Dept Dept. Visit Date: February 21, 2024 Ms.Jaswinder Arcos Date of : 1965 MRN/E #: [id number] Chief Complaint: Patient presents with: Establish Care [...] Brother Age of Onset: (Not Specified) Comment: [place] Problem: Diabetes Relation: Brother Age of Onset: (Not Specified) Problem: Coronary Artery Disease Relation: Brother Age of Onset: (Not Specified) Comment: [place] ALLERGIES Allergen Reactions Sulfa (Sulfonamide * itching, [...] needs code for MyChart please. Nora Mccartney APRN.SERVICE GIRL, signed on February 21, 2024 10:40 AM documented in this encounter [facility] 02-18-2024 Instructions Rosalio Alfaro MD - 02/18/2024 3:21 PM EDT Dry Eye management: Preservative free lubricant eye drop 4 to 8 times daily Both eyes ( refresh, systane, genteal and theratears are good brands) Drink 6 to 8 glasses of clear liquids daily Cool mist humidifier in bedroom documented in this encounter [facility] 02-18-2024 Note HNO ID: [id number] Author: ROSALIO ALFARO MD Service: ? Author [...] of its relevant components. Rosalio Diana MD [facility] 02-18-2024 History of Presen t illness [...] Rosalio Diana MD documented in this encounter [facility] 02-05-2024 Note HNO ID: [id number] Author: JULISSA JOHNSON PA Service: ? Author Type: Physician Rough Rib Grader Type: Progress Notes Filed: 02/05/2024 16:59 Note Text: This note was created using Popular Paysriter. Subjective Suhas Arcos is a 58 year [...] mi Diabetes Brother Coronary Artery Disease Brother [place] Social History Tobacco Use Smoking status: Never [...] detail warranting prompt ER evaluation. PRINCE Colón [facility] 02-05-2024 History of Presen t illness Narrative This note was created using Popular Pays[employer]. Subjective Suhas Arcos is a 58 year [...] mi Diabetes Brother Coronary Artery Disease Brother [place] Social History Tobacco Use Smoking status: Never [...] evaluation. PRINCE Colón documented in this encounter [facility] 09-12-2023 History of [...] 2023 3:36 PM documented in this encounter [facility] 09-12-2023 Note HNO ID: [id number] Author: America Rodriguez RT(Susu) Service: Radiology Author [...] RT Willa(Susu) September 12, 2023 3:36 PM [facility] 09-12-2023 Note HNO ID: [id number] Author: Julissa Johnson PA Service: ? Author Type: Physician Rough Rib Grader Type: Progress Notes Filed: 09/12/2023 4:05 PM Note Text: This note was created using Codenvyter. Subjective Suhas Arcos is a 58 year [...] mi Diabetes Brother Coronary Artery Disease Brother [place] Social History Tobacco Use Smoking status: Never [...] detail warranting prompt ER evaluation. PRINCE Colón [facility] 09-12-2023 History of Presen t illness Narrative This note was created using [employer] P[employer]. Subjective Suhas Arcos is a 58 year [...] mi Diabetes Brother Coronary Artery Disease Brother [place] Social History Tobacco Use Smoking status: Never [...] evaluation. PRINCE Colón documented in this encounter [facility] 08-28-2023 Miscellaneous Notes Patient calls and notified of results and providers instructions. Patient verbalizes understanding. Lizzeth Jackson RN Left message for patient to return call. Elizabeth Mccormack Please notify that patient was positive for flu. Past treatment window. Usually contagious for 5-7 days. Return to work when 24 hours fever free. documented in this encounter [facility] 08-27-2023 Note HNO ID: [id number] Author: Julian Miguel MD Service: ? Author [...] no wheezes or crackles, no increased [facility] 11/16/22: EST GFR - AA [...] NAAT, ROUTINE - We will call in [facility] if positive. Julian Miguel MD [facility] 08-27-2023 History of Presen t illness [...] no wheezes or crackles, no increased [facility] 11/16/22: EST GFR - AA [...] Julian Miguel MD documented in this encounter [facility] 02-23-2023 History of Presen t illness [...] mi Diabetes Brother Coronary Artery Disease Brother [place] Social History Tobacco Use Smoking status: Never [...] Meera Pa APRN.CNP documented in this encounter [facility] 02-23-2023 Instructions Meera Pa APRN.CNP - [...] drainage or pus). documented in this encounter [facility] 11-14-2022 Instructions Meera Pa APRN.CNP - [...] Meera Pa APRN.MARSHAL documented in this encounter [facility] 11-14-2022 History of Presen t illness Narrative Subjective HPI Suhas Arcos is a 57 year old female who presents due to being out of her hypertension medication and some other routine meds. She states she accidentally signed a form to have her records transferred to another doctor and this was due to her misunderstanding as Belgian is her second language. She did not [...] an appointment with a new PCP at [facility] but she has since run out of her medication. She went to [facility] to have these refilled and was told they could not refill chronic meds. 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 and to help with [...] mi Diabetes Brother Coronary Artery Disease Brother [place] Social History Tobacco Use Smoking status: Never [...] Meera Pa APRN.MARSHAL documented in this encounter [facility] 01-23-2013 History of Past i llness Narrative Problem Noted Date Resolved Date Neck pain 01/23/2013 06/28/2016 Blood in stool 08/31/2011 03/24/2014 Anemia, unspecified 08/31/2011 06/28/2016 Dyspepsia and other specifie d disorders of function of stomach 10/04/2010 11/16/2015 Anxiety state, unspecified 07/04/200706/28 Headache(784.0) 07/04/2007 06/28/2016 documented as of this encounter (statuses as of 11/15/2022) [facility] History of Past illness Narrative* Problem Noted Date Resolved Date Neck pain 01/23/2013 06/28/2016 Blood in stool 08/31/2011 03/24/2014 Anemia, unspecified 08/31/2011 06/28/2016 Dyspepsia and other specifie d disorders of function of stomach 10/04/2010 11/16/2015 Anxiety state, unspecified 07/04/200706/28 Headache(784.0) 07/04/2007 06/28/2016 documented as of this encounter (statuses as of 02/23/2023) [facility] History of Past illness Narrative* Problem Noted Date Diagnosed Date Resolved Date Neck pain 01/23/2013 06/28/2016 Blood in stool 08/31/2011 03/24/2014 Anemia, unspecified 08/31/2011 06/28/20 16 Dyspepsia and other specifie d disorders of function of stomach 10/04/2010 11/16/2015 Anxiety state, unspecified 07/04/2007 0 06/28/2016 Headache(784.0) 07/04/2007 06/28/2016 documented as of this encounter (statuses as of 08/27/2023) [facility] History of Past illness Narrative* Problem Noted Date Diagnosed Date Resolved Date Neck pain 01/23/2013 06/28/2016 Blood in stool 08/31/2011 03/24/2014 Anemia, unspecified 08/31/2011 06/28/20 16 Dyspepsia and other specifie d disorders of function of stomach 10/04/2010 11/16/2015 Anxiety state, unspecified 07/04/2007 0 06/28/2016 Headache(784.0) 07/04/2007 06/28/2016 documented as of this encounter (statuses as of 08/28/2023) [facility] History of Past illness Narrative* Problem Noted Date Diagnosed Date Resolved Date Neck pain 01/23/2013 06/28/2016 Blood in stool 08/31/2011 03/24/2014 Anemia, unspecified 08/31/2011 06/28/20 16 Dyspepsia and other specifie d disorders of function of stomach 10/04/2010 11/16/2015 Anxiety state, unspecified 07/04/2007 0 06/28/2016 Headache(784.0) 07/04/2007 06/28/2016 documented as of this encounter (statuses as of 09/13/2023) [facility] Diagnosis Arthritis pain- Primary Arthropathy, unspecified, site unspecified Essential hypertension Unspecified essential hypertension [facility] Diagnosis Rash- Primary Rash and other nonspecific skin eruption [facility] Diagnosis URI, acute- Primary Acute upper respiratory infections of unspecified site [facility] Diagnosis Acute cough- Primary Bacterial sinusitis Unspecified sinusitis (chronic) [facility] Diagnosis Bacterial sinusitis- Primary Unspecified sinusitis (chronic) Fatigue, unspecified type [facility] Diagnosis Blurred vision, bilateral- Primary Other specified visual disturbances Refractive error Unspecified disorder of refraction and accommodation Pseudophakia Lens replaced by other means Dry eye syndrome, bilateral [facility] Diagnosis Well adult exam- Primary Routine [...] for breast cancer [facility] Diagnosis Viral illness- Primary Unspecified viral infection, in conditions classified elsewhere and of unspecified site [facility] Diagnosis HYPERTENSION NOS- Primary Unspecified essential [...] unspecified Acute cough [facility] Diagnosis HYPERTENSION NOS- Primary Unspecified essential [...] depressive disorder (HCC) [facility] Diagnosis HYPERTENSION NOS- Primary Unspecified [...] malignant neoplasms, colon [facility]narrative[facility] Diagnostic Procedure Only (Routine) - Pending Review Specialty Diagnoses / Procedures Referred By Geoffrey magallanes Referred To Contact [facility] Diagnoses Encounter for screening mammogram for breast cancer Procedures DOUG SCREENING SCREENING MAMMOGRAPHY BI 2-VIEW BREAST INC CAD Nora Mccartney APRN.SERVICE GIRL [address] [place] [address] [facility] [address] [place] [address] Referral ID Status Reason Start Date Expiration Date Visits Requested Visits Authorized [id number] Pending Review Auto-Generat ed Referral 02/21/2024 03/22/2025 1 1 * Consult, Test, Treat (Routine) - Authorized Specialty Diagnoses / Procedures Referred By Geoffrey magallanes Referred To Contact General Surgery / GENERAL SURGERY Diagnoses Screening for colon cancer Procedures CONSULT TO GENERAL SURGERY OFFICE/OUTPATIENT [facility] 60 MINUTES Nora Mccartney APRN.CNP [address] [place] [address] [facility] [address] [place] [address] Referral ID Status Reason Start Date Expiration Date Visits Requested Visits Authorized [id number] Authorized PCP Requested Referral 02/21/2024 02/20/2025 1 1 [facility] Health Concerns Infection Onset Date Last [...] EVALUATION HIGH COMPLEX 45 MINS Nora Mccartney APRN.SERVICE GIRL [address] [place] [address] [facility] [place] [id number] Referral ID Status Reason Start Date Expiration Date Visits Requested Visits Authorized [id number] Pending Review Auto-Generat ed Referral 07/21/2024 07/21/2025 1 1 Specialty Diagnoses / Procedures Referred By Contac t Referred To Contact Orthopedics / [facility] DEPARTMENT Diagnoses Primary osteoarthritis of left knee Procedures CONSULT TO ORTHOPAEDIC SURGERY OFFICE/OUTPATIENT NEW HIGH MDM 60 MINUTES Nora Mccartney APRN.SERVICE GIRL [address] [place] [address] Emilie Negro PA-C [address] [place] [address] Referral ID Status Reason Start Date Expiration Date Visits Requested Visits Authorized [id number] Authorized PCP Requested Referral 07/21/2024 07/21/2025 1 1 Specialty Diagnoses / Procedures Referred By Contac t Referred To Contact General Surgery / [facility] DEPARTMENT Diagnoses Colon cancer screening Procedures CONSULT TO GENERAL SURGERY OFFICE/OUTPATIENT NEW HIGH MDM 60 MINUTES Nora Mccartney APRN.SERVICE GIRL [address] [place] [address] Elizabeth Bland MD [address] [place] [address] Referral ID Status Reason Start Date Expiration Date Visits Requested Visits Authorized [id number] Authorized PCP Requested Referral 07/21/2024 07/21/2025 1 1 Additional Source Comments Source Comments (unrecognize d section and content) In the event this informatio n is protected by the Federal Confidentiality of Alcohol and Drug Abuse Patient Records regulations: The Federal rules restrict any use of the information to criminally investigate or prosecute any alcohol or drug abuse patient.[facility] the event this information is protected by the Federal Confidentiality of Alcohol and Drug Abuse Patient Records regulations: The Federal rules restrict any use of the information to criminally investigate or prosecute any alcohol or drug abuse patient.[facility] the event this information is protected by the Federal Confidentiality of Alcohol and Drug Abuse Patient Records regulations: The Federal rules restrict any use of the information to criminally investigate or prosecute any alcohol or drug abuse patient.[facility] the event this information is protected by the Federal Confidentiality of Alcohol and Drug Abuse Patient Records regulations: The Federal rules restrict any use of the information to criminally investigate or prosecute any alcohol or drug abuse patient.[facility] the event this information is protected by the Federal Confidentiality of Alcohol and Drug Abuse Patient Records regulations: The Federal rules restrict any use of the information to criminally investigate or prosecute any alcohol or drug abuse patient.[facility] the event this information is protected by the Federal Confidentiality of Alcohol and Drug Abuse Patient Records regulations: The Federal rules restrict any use of the information to criminally investigate or prosecute any alcohol or drug abuse patient.[facility] the event this information is protected by the Federal Confidentiality of Alcohol and Drug Abuse Patient Records regulations: The Federal rules restrict any use of the information to criminally investigate or prosecute any alcohol or drug abuse patient.[facility] the event this information is protected by the Federal Confidentiality of Alcohol and Drug Abuse Patient Records regulations: The Federal rules restrict any use of the information to criminally investigate or prosecute any alcohol or drug abuse patient.[facility] the event this information is protected by the Federal Confidentiality of Alcohol and Drug Abuse Patient Records regulations: The Federal rules restrict any use of the information to criminally investigate or prosecute any alcohol or drug abuse patient.[facility] the event this information is protected by the Federal Confidentiality of Alcohol and Drug Abuse Patient Records regulations: The Federal rules restrict any use of the information to criminally investigate or prosecute any alcohol or drug abuse patient.[facility] the event this information is protected by the Federal Confidentiality of Alcohol and Drug Abuse Patient Records regulations: The Federal rules restrict any use of the information to criminally investigate or prosecute any alcohol or drug abuse patient.[facility] the event this information is protected by the Federal Confidentiality of Alcohol and Drug Abuse Patient Records regulations: The Federal rules restrict any use of the information to criminally investigate or prosecute any alcohol or drug abuse patient.[facility] the event this information is protected by the Federal Confidentiality of Alcohol and Drug Abuse Patient Records regulations: The Federal rules restrict any use of the information to criminally investigate or prosecute any alcohol or drug abuse patient.[facility] the event this information is protected by the Federal Confidentiality of Alcohol and Drug Abuse Patient Records regulations: The Federal rules restrict any use of the information to criminally investigate or prosecute any alcohol or drug abuse patient.[facility] the event this information is protected by the Federal Confidentiality of Alcohol and Drug Abuse Patient Records regulations: The Federal rules restrict any use of the information to criminally investigate or prosecute any alcohol or drug abuse patient.[facility] the event this information is protected by the Federal Confidentiality of Alcohol and Drug Abuse Patient Records regulations: The Federal rules restrict any use of the information to criminally investigate or prosecute any alcohol or drug abuse patient.[facility] the event this information is protected by the Federal Confidentiality of Alcohol and Drug Abuse Patient Records regulations: The Federal rules restrict any use of the information to criminally investigate or prosecute any alcohol or drug abuse patient.[facility] the event this information is protected by the Federal Confidentiality of Alcohol and Drug Abuse Patient Records regulations: The Federal rules restrict any use of the information to criminally investigate or prosecute any alcohol or drug abuse patient.[facility] Reason for Visit (unrecogniz ed section and content) Reason Comments Blurred Vision Both Eyes Specialty Diagnoses / Procedures Referred By Geoffrey t Referred To Contact Internal Medicine / [facility] Diagnoses fatigue, eyes feel heavy, congestion x 5 days Procedures EST SAME DAY Self [facility] [address] [place] [address] Referral ID Status Reason Start Date Expiration Date Visits Requested Visits Authorized [id number] Authorized Patient Cleared - Qualified 100% FAS [...] Diagnoses new pt Procedures 4C Nora Ivory, ENGINEERING OPERATIONS LEADER.[address] [address] Nora Mccartney, ENGINEERING OPERATIONS LEADER.[address] [address] Referral ID Status Reason Start Date Expiration Date Visits Requested Visits Authorized [id number] Authorized Patient Cleared - Qualified 100% FAS 02/21/2024 05/21/2024 99 99 Reason Comments Headache Bodyaches x last nig ht Specialty Diagnoses / Procedures Referred By Contac t Referred To Contact Family Medicine / FAMILY MEDICINE Diagnoses new pt Procedures 4C Nora Ivory, ENGINEERING OPERATIONS LEADER.[facility] [address] [place] [address] Nora Mccartney, ENGINEERING OPERATIONS LEADER.[address] [address] Reason Onset Date Comments Return Provider Call 03/30/2024 Reason Comments Lab Orders Reason Onset Date Comments ED [facility] Reason Onset Date Comments Refill Request 07/09/2024 Reason Comments Refill Request Depression Pt states dose is wo rking Specialty Diagnoses / Procedures Referred By Geoffrey t Referred To Contact Diagnoses primary care Procedures OFFICE CONSULT NEW/EST 20 MIN Nora Mccartney, ENGINEERING OPERATIONS LEADER.SERVICE GIRL [address] [place] [address] [place] [id number] Referral ID Status Reason Start Date Expiration Date Visits Requested Visits Authorized [id number] Authorized Patient Cleared - Qualified 100% FAS 07/09/2024 10/07/2024 99 99 Care Teams (unrecognized sec tion and content) Administrative Liaison Relationship Specialty Start Date End Date Cassius Kilpatrick Thor PCP - General Gerontology 03/15/18 Administrative Liaison Relationship Specialty Start Date End Date Cailin Steele DO [address] [place] [address] PCP - General Family Medicine 02/23/23 Administrative Liaison Relationship Specialty Start Date End Date Cailin Steele DO [address] [place] [address] PCP - General Family Medicine 02/23/23 Administrative Liaison Relationship Specialty Start Date End Date Cailin Steele DO [address] [place] [address] PCP - General Family Medicine 02/23/23 Administrative Liaison Relationship Specialty Start Date End Date Cailin Steele DO [address] [place] [address] PCP - General Family Medicine 02/23/23 Administrative Liaison Relationship Specialty Start Date End Date Cailin Steele DO [address] [place] [address] PCP - General Family Medicine 02/23/23 Administrative Liaison Relationship Specialty Start Date End Date Cailin Steele DO [address] [place] [address] PCP - General Family Medicine 02/23/23 Administrative Liaison Relationship Specialty Start Date End Date Nora Mccartney, ENGINEERING OPERATIONS LEADER.SERVICE GIRL [address] [place] [address] PCP - General Family Medicine 02/21/24 Administrative Liaison Relationship Specialty Start Date End Date Nora Mccartney, ENGINEERING OPERATIONS LEADER.SERVICE GIRL [address] [place] [address] PCP - General Family Medicine 02/21/24 Administrative Liaison Relationship Specialty Start Date End Date Nora Mccartney, ENGINEERING OPERATIONS LEADER.SERVICE GIRL [address] [place] [address] PCP - General Family Medicine 02/21/24 Administrative Liaison Relationship Specialty Start Date End Date Nora Mccartney, ENGINEERING OPERATIONS LEADER.SERVICE GIRL [address] [place] [address] PCP - General Family Medicine 02/21/24 Administrative Liaison Relationship Specialty Start Date End Date Nora Mccartney, ENGINEERING OPERATIONS LEADER.SERVICE GIRL [address] [place] [address] PCP - General Family Medicine 02/21/24 Administrative Liaison Relationship Specialty Start Date End Date Nora Mccartney, ENGINEERING OPERATIONS LEADER.SERVICE GIRL [address] [place] [address] PCP - General Family Medicine 02/21/24 Administrative Liaison Relationship Specialty Start Date End Date Nora Mccartney, ENGINEERING OPERATIONS LEADER.SERVICE GIRL [address] [place], [place] [id number] PCP - General Family Medicine 02/21/24 Administrative Liaison Relationship Specialty Start Date End Date Nora Mccartney, ENGINEERING OPERATIONS LEADER.SERVICE GIRL [address] [facility] [place] [place] [phone] PCP - General Family Medicine 02/21/24 Administrative Liaison Relationship Specialty Start Date End Date Cailin Steele DO [address] [place], [place] [id number] PCP - General Family Medicine 02/23/23 02/20/24 Administrative Liaison Relationship Specialty Start Date End Date Nora Mccartney, ENGINEERING OPERATIONS LEADER.SERVICE GIRL [address] [facility] [place] [phone] PCP - General Family Medicine 02/21/24 Administrative Liaison Relationship Specialty Start Date End Date Nora Mccartney, ENGINEERING OPERATIONS LEADER.SERVICE GIRL [address] [facility] [place], [place] [phone] PCP - General Family Medicine 02/21/24 INFORMATION SOURCE (unrecogn ized section and content) DATE CREATED AUTHOR 03/30/2024 [facility] DATE CREATED AUTHOR AUTHOR'S ORGANIZ ATION 07/22/2024 [facility] FOR RECORDS PERTAINING TO PATIENTS WHO [...] BE BASED ON THE PRIMARY CLINICAL RECORDS. [facility], [facility]. provides no warranty or guarantee of the accuracy or completeness of information in this document.
--- NOTE | 2024-09-05 19:28 | ECHOCS_ITS ---
Reason For Study: Chest Pain Procedure This was a 2D Doppler, Color Flow transthoracic echocardiogram. Contrast injection was performed. Exam performed portable in patient room. Left Ventricle Normal left ventricle. The estimated ejection fraction is 55-60 %. Right Ventricle Normal right ventricle. Normal systolic function. Atria Normal left atrium. Normal right atrium. Mitral Valve The mitral valve is structurally normal. No prolapse or stenosis seen. Mild (1+) mitral valve insufficiency. Tricuspid Valve Normal tricuspid valve. Mild tricuspid valve insufficiency. Aortic Valve Trisinus/trileaflet aortic valve. Pulmonic Valve The pulmonic valve is not well visualized. Great Vessels Normal aortic root. Pericardium/Pleural No pericardial effusion. Medication Diluted definity 1.5ml given slow IV push to enhance endocardial definition. MMode/2D Measurements & Calculations LVIDd: 4.2 cm IVSd: 0.84 cm asc Aorta Diam: 3.0 cm LVIDs: 2.9 cm LVPWd: 0.73 cm RVDd: 2.3 cm FS: 31.0 % LAV(MOD-bp): 20.8 ml LVAd ap4: 20.6 cm2 SV(MOD-sp4): 29.9 ml LAV(MOD-bp) Indexed: 12.9 ml/m2 LVLd ap4: 6.8 cm SI(MOD-sp4): 18.6 ml/m2 LAV(MOD-sp2): 22.7 ml EDV(MOD-sp4): 51.2 ml LAV(MOD-sp4): 17.9 ml EDV(sp4-el): 52.8 ml LVAs ap4: 11.6 cm2 LVLs ap4: 5.4 cm ESV(MOD-sp4): 21.3 ml ESV(sp4-el): 21.2 ml EF(MOD-sp4): 58.4 % EF(sp4-el): 59.9 % SV(sp4-el): 31.7 ml LA A4 area: 9.6 cm2 LA dimension(2D): 2.9 cm RA A4 area: 6.9 cm2 TAPSE: 2.3 cm Time Measurements MV dec time: 0.15 sec Doppler Measurements & Calculations MV E max pelon: 77.6 cm/sec Lat Peak E' Pelon: 10.7 cm/sec Med Peak E' Pelon: 9.2 cm/sec MV A max pelon: 82.8 cm/sec E/E' lat: 7.3 E/E' med: 8.5 MV E/A: 0.94 MV dec slope: 529.7 cm/sec2 Ao V2 max: 137.3 cm/sec LV V1 max: 105.1 cm/sec Ao max P.6 mmHg LV V1 max P.4 mmHg Ao V2 mean: 91.3 cm/sec Ao mean P.9 mmHg Ao V2 VTI: 29.6 cm PA V2 max: 89.4 cm/sec TR max pelon: 252.3 cm/sec TR max P.5 mmHg ECHO/Echo Complete W/ Contrast Interpretation Summary The estimated ejection fraction is 55-60 %. Normal LV systolic function Mild TR Mild MR Contrast echo used Definity Comparison to previous echo no significant change. Ordering Physician: Gregoria Ambrocio Referring Physician: Nora Robertson Performed By: Marie Redman, RDCS, RVT
[2024-09-05] MEDS: HEPARIN/D5w 25,000 UNITS 25,000 UNITS/250 ML IV.SOLN. 8 UNITS CONT INF (20:46)
[2024-09-05] MEDS: Heparin Injection (Vial) 5,000 UNIT/ML VIAL 4000 UNIT IV (20:47)
[2024-09-05] MEDS: Metoprolol Tartrate 25 MG Tablet PO (20:48)
[2024-09-05] MEDS: Acetaminophen 325 MG Tablet 650 MG PO (20:54)
[2024-09-05 22:39] LABS: Troponin-I HS 54 pg/mL (3.0-54.0)
[2024-09-06 03:13] LABS: Absolute Lymphocyte Count 4.78 X10^3/uL (0.83-4.51); Absolute Neutrophil Count 5.9 X10^3/uL (2.0-7.7); Basophil# 0.08 X10^3/uL; Basophil% 0.7 % (0-1); Eosinophil# 0.32 X10^3/uL; Eosinophils% 2.7 % (0-5); Hematocrit 33.2 % (37-47); Hemoglobin 10.8 g/dL (12.0-15.0); Lymphocyte # 4.78 X10^3/ul (0.83-4.51); Mean Corp Hgb Conc 32.5 g/dL (32-36); Mean Corpuscular Hgb 27.6 pg (27.0-32.0); Mean Corpuscular Volume 84.7 fL (81-99); Mean Platelet Vol. 9.5 fl (6.2-12.0); Monocyte# 0.85 X10^3/uL; Monocyte% 7.1 % (0-10); NRBC Flagged by Analyzer 0 % (0-5); Neutrophil # 5.85 X10^3/uL (2.7-7.7); Neutrophil % 48.8 % (47-70); Platelet Count 383 K/mm3 (150-450); RBC Distribution Width CV 13.2 % (11.6-14.6); RBC Distribution Width SD 40.5 fl (35.1-43.9); Red Blood Count 3.92 M/mm3 (4.2-5.4)
[2024-09-06 03:26] LABS: Partial Thromboplast Time 66.8 Seconds (24.1-36.2)
[2024-09-06 03:30] VITALS: BP 137/74; PULSE 84; RESP 16; TEMP 36.9; O2SAT 97
[2024-09-06 03:41] LABS: ALB/GLOB Ratio 0.7 RATIO (0.9-2.4); AST(SGOT) 17 U/L (15-37); Alanine Aminotransfer ALT/SGPT 22 U/L (13-56); Albumin, Serum 2.9 g/dL (3.2-5.0); Alkaline Phosphatase 70 U/L (45-117); Anion Gap 7 (5-15); BUN 18 mg/dL (7-18); BUN/Creat Ratio 24.5 RATIO (10-20); Calcium,Total 9.1 mg/dL (8.5-10.1); Chloride 108 mmol/L (98-107); Cholesterol 199 mg/dL (200); Creatinine, Serum 0.74 mg/dL (0.55-1.02); EST Glomerular Filtration Rate 86 mL/min (>60); Est Glom Filt Rate - Afr Amer 104 mL/min (>60); Estimated Creatinine Clearance 66.55 ml/min; Globulin 3.9 g/dL (2.2-4.2); Glucose 99 mg/dL (74-106); High Density Lipoprotein 42 mg/dL; Phosphorus 4.5 mg/dL (2.5-4.9); Potassium 3.7 mmol/L (3.5-5.1); Protein, Total 6.8 g/dL (6.4-8.2); Sodium Level 140 mmol/L (136-145); Triglycerides 180 mg/dL; Very Low Density Lipoprotein 36 mg/dL (5-40)
[2024-09-06] MEDS: Acetaminophen 325 MG Tablet 650 MG PO ×2 (05:28→14:21)
--- NOTE | 2024-09-06 05:53 | CT_ITS ---
STUDY: CT RIGHT SHOULDER REASON FOR EXAM: Female, 59 years old. Acute pain after fall RADIATION DOSAGE (If Supplied By Facility): CTDIvol = ( 24.96 ) mGy, DLP = ( 488.08 ) mGycm TECHNIQUE: The patient was scanned in a multi detector CT scanner. High resolution transaxial imaging was performed without the administration of intravenous contrast material. Sagittal and coronal images were reconstructed. Individualized dose optimization techniques were used for this CT. COMPARISON: None. FINDINGS: Normal glenohumeral articulation. Normal glenoid rim, neck and visualized scapula. Normal humeral head, neck and tuberosities. Normal coracoid process. Normal visualized lateral clavicle. There is mild osteoarthritis with articular joint space narrowing. There is a Type II morphology (curved), with a neutral orientation. Normal visualized muscles and soft tissue structures. CT/Extremity Upper without Contra IMPRESSION: No demonstrated fracture or suspicious osseous lesion Anatomic alignment and preservation of the glenohumeral joint space Mild narrowing of the acromioclavicular joint space No upper rib fracture or pneumothorax No suspicious soft tissue swelling Electronically Signed: Ld Hansen MD at 8:24 EST ,
[2024-09-06] MEDS: Lidocaine 5% Patch 2 PATCH TOPICAL (06:47)
--- NOTE | 2024-09-06 09:23 | PN.HOSP_ITS ---
Reason for Visit Reason for Visit: Diagnoses Altered mental status, unspecified (09/05/24) Other specified abnormal findings of blood chemistry (09/05/24) Objective Data Objective Data Vital Signs: Vital Signs Temp Pulse Resp BP Pulse Ox O2 Del Method 98.5 F 84 16 137/74 H 97 Room Air 09/06/24 03:30 09/06/24 03:30 09/06/24 03:30 09/06/24 03:30 09/06/24 03:30 09/06/24 08:14 Oxygen Delivery Method Room Air Weight: 60.5 kg Body Mass Index (BMI) 28.8 Intake & Output: Intake and Output for Last 24 Hours 09/04/24 09/05/24 09/06/24 23:59 23:59 23:59 Intake Total 0 / 0 Balance 0 / 0 Lab / Micro Data 09/06/24 02:46 09/06/24 02:46 Labs: Laboratory Results - last 24 hr 09/05/24 14:11: WBC 11.2 H, RBC 4.41, Hgb 12.1, Hct 37.2, MCV 84.4, MCH 27.4, MCHC 32.5, RDW Std Deviation 40.6, RDW Coeff of Jazmin 13.2, Plt Count 393, MPV 9.3, Immature Gran % (Auto) 0.800, Neut % (Auto) 40.4 L, Lymph % (Auto) 46.7 H, Randolph % (Auto) 8.2, Eos % (Auto) 3.0, Baso % (Auto) 0.9, Absolute Neuts (auto) 4.5, Absolute Lymphs (auto) 5.23 H, Nucleated RBC % 0, Differential Comment COMMENT, Sodium 136, Potassium 3.7, Chloride 106, Carbon Dioxide 22.0, Anion Gap 7, BUN 14, Creatinine 0.78, Estim Creat Clear Calc 64.80, Est GFR (MDRD) Af Amer 98, Est GFR (MDRD) Non-Af 81, BUN/Creatinine Ratio 18.1, Glucose 99, Lactic Acid 1.4, Calcium 9.5, Total Bilirubin 0.20, AST 22, ALT 25, Alkaline Phosphatase 85, Troponin I High Sens 9, Total Protein 7.9, Albumin 3.7, Globulin 4.2, Albumin/Globulin Ratio 0.9 09/05/24 15:03: Urine Color Yellow, Urine Clarity Clear, Urine pH 6.0, Ur Specific Ellsworth 1.010, Urine Protein Negative, Urine Glucose (UA) Normal, Urine Ketones Negative, Urine Occult Blood Negative, Urine Nitrite Negative, Urine Bilirubin Negative, Urine Urobilinogen Normal, Ur Leukocyte Esterase Negative, Urine RBC 0 SEEN, Urine WBC 0 SEEN, Ur Squamous Epith Cells 0-5 SEEN, Urine Bacteria 0 SEEN, Urine Mucus RARE, Urine Opiates Screen NEGATIVE, Urine Methadone Screen NEGATIVE, Ur Barbiturates Screen NEGATIVE, Ur Phencyclidine Scrn NEGATIVE, Ur Amphetamines Screen NEGATIVE, MDMA (Ecstasy) Screen NEGATIVE, U Benzodiazepines Scrn NEGATIVE, Urine Cocaine Screen NEGATIVE, U Cannabinoids Screen NEGATIVE, Ur Drug Screen Comment 09/05/24 15:09: PT 12.9, INR 1.0, APTT 25.8 09/05/24 16:32: Troponin I High Sens 94 H 09/05/24 22:10: Troponin I High Sens 54 09/06/24 02:46: WBC 12.0 H, RBC 3.92 L, Hgb 10.8 L, Hct 33.2 L, MCV 84.7, MCH 27.6, MCHC 32.5, RDW Std Deviation 40.5, RDW Coeff of Jazmin 13.2, Plt Count 383, MPV 9.5, Immature Gran % (Auto) 0.700, Neut % (Auto) 48.8, Lymph % (Auto) 40.0, Randolph % (Auto) 7.1, Eos % (Auto) 2.7, Baso % (Auto) 0.7, Absolute Neuts (auto) 5.9, Absolute Lymphs (auto) 4.78 H, Nucleated RBC % 0, APTT 66.8 H, Sodium 140, Potassium 3.7, Chloride 108 H, Carbon Dioxide 25.0, Anion Gap 7, BUN 18, Creatinine 0.74, Estim Creat Clear Calc 66.55, Est GFR (MDRD) Af Amer 104, Est GFR (MDRD) Non-Af 86, BUN/Creatinine Ratio 24.5 H, Glucose 99, Calcium 9.1, Phosphorus 4.5, Magnesium 2.0, Total Bilirubin 0.20, AST 17, ALT 22, Alkaline Phosphatase 70, Total Protein 6.8, Albumin 2.9 L, Globulin 3.9, Albumin/Globulin Ratio 0.7 L, Triglycerides 180, Cholesterol 199, LDL Cholesterol 121, VLDL Cholesterol 36, HDL Cholesterol 42, TSH 3.500 Radiography Diagnostic Testing: Radiology Impression Brain CT 09/05/24 14:14 IMPRESSION: Normal unenhanced CT scan of the brain. Electronically Signed: Bradley Ferrara MD at 14:55 EST , Chest X-Ray 09/05/24 14:45 IMPRESSION: Normal x-ray examination of the chest. Electronically Signed: Bradley Ferrara MD at 15:08 EST , Hip/Pelvis X-Ray 09/05/24 14:45 IMPRESSION: Moderate degree of osteoarthritis of both hip joints. Electronically Signed: Bradley Ferrara MD at 15:07 EST , Upper Extremity CT 09/06/24 05:53 IMPRESSION: No demonstrated fracture or suspicious osseous lesion Anatomic alignment and preservation of the glenohumeral joint space Mild narrowing of the acromioclavicular joint space No upper rib fracture or pneumothorax No suspicious soft tissue swelling Electronically Signed: Ld Hansen MD at 8:24 EST , Rhythm Strip Rhythm Strip: Sinus Rhythm Rate: 71 Ectopy: None Assessment & Plan Assessment/Plan (1) Elevated troponin I level: PLAN: Plan # Syncope versus presyncope -Was walking in front of a store and tripped on unlevel ground, did not hit head but had some right shoulder discomfort, right knee pain, left hip pain. Was very out of it when EMS arrived and was awake but not interactive -Initial glucose 99 dilutional blood pressure 200/100 with sluggish pupils with EMS -Arrival to the ED patient answering questions and had no complaints and was vitally stable -admitted to telemetry -EGK sinus rhythm with no ST T wave changes concerning for acute ischemia and normal intervals -CT head was normal -orthostatic vital signs ordered -will obtain echo -Holter monitor on d/c if no arrhythmia detected # Elevated troponin -Initial troponin 9 with repeat 94, subsequent normalized -EKG sinus rhythm with no ischemic changes -Given the unclear etiology of this event with elevated troponin patient started on heparin drip, started on aspirin and metoprolol and cardiology consulted -Patient has had adverse reactions to statin in the past 1 was not started -Echo ordered #Depression/anxiety -Continue home medications #DVT ppx: On heparin drip Samaria Alvarado MD Time spent in the patient's overall evaluation, decision-making process, review of diagnostic data, adjustment of management, discussion with other providers, nursing and ancillary staff involved in patient's care documentation, 36 Minutes Charges/Coding Visit Charges Inpatient E&M: 85783 Subs Hosp L2
[2024-09-06 09:30] VITALS: BP 155/69; PULSE 67; RESP 12; TEMP 36.8; O2SAT 100
--- NOTE | 2024-09-06 09:40 | CASEMGMT ---
HEMANTH WILEY Assessment: Face to Face with pt for initial transition planning/care coordination assessment. HEMANTH WILEY introduced self and role at [facility], pt voices understanding and consents to assessment. Pt is A&O x4 and answers all questions appropriately at this time. Pt dtr present in room and pt agreeable to assessment with dtr present. Care providers, pharmacy, and demographics verified/updated. Admitting Dx: troponin elevation PCP:Nora Robertson NP Specialists:Pt denies but noted after assessment pt has been seen by ANANDA. Preferred Pharmacy: [facility] Insurance: Self Pay Prescription Benefit: no LNOK: Lillian Manuel, Living Arrangements: Pt lives with and dtr in a single story home with 3 steps to enter with a rail. Pt reports she is typically I in ADLs and denies concerns at home. Pt states she tripped on an uneven step yesterday while looking at furniture. 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: Pt drives self and denies concerns with transportation. DME:Denies HHC/SNF: Denies hx of Pt states no concerns with going home at time of dc. Pt states no further concerns/needs. CM to follow. Advised pt to ask CM if any further question/concerns/needs arise, voices understanding. Pt Goal: Home Plan: Home Ehsan SAXENA CM
[2024-09-06 09:41] LABS: Partial Thromboplast Time 62.3 Seconds (24.1-36.2)
--- NOTE | 2024-09-06 09:41 | CASEMGMT ---
Addendum entered by Caitlyn Zuleta 09/06/24 11:55: Social Work SW did send Susana from [employer] an email in regard to pt. JANKI Rivera Original Note: Social Work SW met w/pt as she is listed as self pay. SW provided to pt resources, including a Medicaid application, and information on [employer], [employer], [employer] and prescription assistance program information. Pt has already applied for assist through [facility]. Pt would be interested in speaking w/Susana in regard to Medicaid, SW will send her an email. JANKI Rivera
[2024-09-06] MEDS: FLUoxetine 20 MG Capsule PO (10:30)
[2024-09-06] MEDS: Aspirin E.C. 81 MG Tablet PO (10:30)
[2024-09-06] MEDS: Cholecalciferol (VIT D3) 25 MCG TABLET (1,000 UNITS) PO (10:31)
[2024-09-06] MEDS: Ascorbic Acid 500 MG Tablet PO (10:31)
[2024-09-06 11:55] VITALS: BP 145/80; BP 155/69; BP 157/67; PULSE 63; PULSE 67; PULSE 78
[2024-09-06 14:28] VITALS: BP 137/85; PULSE 91; RESP 12; TEMP 36.8; O2SAT 100
--- NOTE | 2024-09-06 15:54 | CON.PCM.CA_ITS ---
Assessment & Plan Assessment/Plan (1) Hypertension: QUALIFIERS: Hypertension type: unspecified Qualified Code(s): I10 - Essential (primary) hypertension (2) Elevated troponin I level: PLAN: Plan 59-year-old patient cardo consultation requested to evaluate for mild elevation of high sensitive troponin Patient had episode of a fall evidently she was walking in front of the store and tripped on unlevel ground Evaluated in the hospital with EKG and noted also blood pressure was elevated when she came in. There was no neurological deficit on physical exam and CT was negative Nonspecific change was noted on the EKG sinus. And the cardiac biomarker mildly elevated she does not have any active chest pain She has been on treatment for hypertension Today her blood pressure 137/85 heart pulses regular her supervisor rod placing showed normal sinus rhythm. Cardiac care plan recommendation I review all the cardiac evaluation which included the echocardiogram showing LV function preserved No segmental wall motion abnormality laborer cutting tool showed normal sinus rhythm. Mild elevation of high sensitive troponins with no symptoms of chest pain. Cardiac care plan and recommendation From cardiac standpoint I would recommend follow-up with an event monitor and possibly evaluation with Lexiscan sestamibi which can be set up as an outpatient Patient to follow-up with the cardiology team at [facility] [place]. Max Foley MD,[facility] HPI Consult Data Date of Consult: 09/06/24 HPI Narrative Reason for Consultation: Elevated troponin/fall possible presyncopal HPI Narrative: SUHAS ABURTO, is a 59 F who presents [facility] Medical History Anxiety and depression Osteoarthritis of left knee Cataract Arthritis GERD (gastroesophageal reflux disease) Vitamin D deficiency Overweight Anxiety Depression Hyperlipemia Anemia Hypertension Abnormal EKG Chest pain Home Medications ?Medication ?Instructions ?Recorded ?Last Taken ?Type ascorbic acid (vitamin C) 500 mg 500 mg PO DAILY 12/29/19 09/04/24 History tablet acetaminophen 500 mg tablet 500 - 1,000 mg (1 - 2 x 500 mg) PO 07/11/22 Unknown Rx TID-QID PRN fever or pain #60 tabs atenolol 25 mg tablet 25 mg PO QDAY #30 tabs 01/08/24 09/04/24 Rx cholecalciferol (vitamin D3) 25 1,000 unit PO QDAY #30 caps 01/08/24 09/04/24 Rx mcg (1,000 unit) capsule loratadine 10 mg tablet 10 mg PO QDAY PRN allergy symptoms 01/08/24 09/04/24 Rx #30 tabs ibuprofen 600 mg tablet 600 mg PO TID-QID PRN pain #30 tabs 06/17/24 09/05/24 Rx fluoxetine 20 mg capsule 20 mg PO DAILY 09/05/24 09/04/24 History Allergy/AdvReac Type Severity Reaction Status Date / Time atorvastatin (From Lipitor) Allergy Severe Bad skin Verified 09/05/24 14:12 reaction Sulfa (Sulfonamide Allergy Unknown Verified 09/05/24 14:12 Antibiotics) Family History Brother , age 55 or 56 Myocardial infarction Sudden cardiac Brother , 55 or 56 , from liver failure CAD (coronary artery disease) S/P CABG (coronary artery bypass graft) Liver failure Mother Cancer throat Surgical History History of wisdom tooth extraction, class IV edentulism History of Social History household members: family number of children: 3 current occupational status: unemployed pets and animals: No other: Patient has 1 child and 2 stepchildren Smoking Status: Never smoker alcohol intake: never substance use type: does not use caffeine: Yes what type of physical activity do you participate in: none seatbelt use: always do you feel safe at home: Yes additional social history: - Ragvinder Physical Exam Cardio Cardio Narrative: Patient seen and evaluated at bedside along with her family and the nursing staff Comfortable does not have any symptoms sitting out in a chair laborer cutting tool showed underlying normal sinus Card exam S1-S2 is regular Chest exam clear auscultation bilateral Examination lower extremity no lower extremity edema. Pedal pulses palpable. Risk Stratification Risk Stratification Applicable: No Objective Data Vital Signs: Vital Signs Temp Pulse Resp BP Pulse Ox O2 Del Method 98.2 F 91 12 137/85 H 100 Room Air 09/06/24 14:28 09/06/24 14:28 09/06/24 14:28 09/06/24 14:28 09/06/24 14:28 09/06/24 14:28 Oxygen Delivery Method Room Air Weight: 133 lb 6.075 oz Body Mass Index (BMI) 28.8 Intake & Output: Intake and Output for Last 24 Hours 09/04/24 09/05/24 09/06/24 23:59 23:59 23:59 Intake Total 0 / 0 357.87 / 357.87 Balance 0 / 0 357.87 / 357.87 Lab / Micro Data 09/06/24 02:46 09/06/24 02:46 Labs: Laboratory Results - last 24 hr 09/05/24 15:03: Urine Opiates Screen NEGATIVE, Urine Methadone Screen NEGATIVE, Ur Barbiturates Screen NEGATIVE, Ur Phencyclidine Scrn NEGATIVE, Ur Amphetamines Screen NEGATIVE, MDMA (Ecstasy) Screen NEGATIVE, U Benzodiazepines Scrn NEGATIVE, Urine Cocaine Screen NEGATIVE, U Cannabinoids Screen NEGATIVE, Ur Drug Screen Comment 09/05/24 16:32: Troponin I High Sens 94 H 09/05/24 22:10: Troponin I High Sens 54 09/06/24 02:46: WBC 12.0 H, RBC 3.92 L, Hgb 10.8 L, Hct 33.2 L, MCV 84.7, MCH 27.6, MCHC 32.5, RDW Std Deviation 40.5, RDW Coeff of Jazmin 13.2, Plt Count 383, MPV 9.5, Immature Gran % (Auto) 0.700, Neut % (Auto) 48.8, Lymph % (Auto) 40.0, Creek % (Auto) 7.1, Eos % (Auto) 2.7, Baso % (Auto) 0.7, Absolute Neuts (auto) 5.9, Absolute Lymphs (auto) 4.78 H, Nucleated RBC % 0, APTT 66.8 H, Sodium 140, Potassium 3.7, Chloride 108 H, Carbon Dioxide 25.0, Anion Gap 7, BUN 18, Creatinine 0.74, Estim Creat Clear Calc 66.55, Est GFR (MDRD) Af Amer 104, Est GFR (MDRD) Non-Af 86, BUN/Creatinine Ratio 24.5 H, Glucose 99, Calcium 9.1, Phosphorus 4.5, Magnesium 2.0, Total Bilirubin 0.20, AST 17, ALT 22, Alkaline Phosphatase 70, Total Protein 6.8, Albumin 2.9 L, Globulin 3.9, Albumin/Globulin Ratio 0.7 L, Triglycerides 180, Cholesterol 199, LDL Cholesterol 121, VLDL Cholesterol 36, HDL Cholesterol 42, TSH 3.500 09/06/24 09:02: APTT 62.3 H Rhythm Strip Rhythm Strip: Sinus Rhythm Rate: 71 Ectopy: None Cardiology Labs/Tests 09/06/24 02:46: WBC 12.0 H, RBC 3.92 L, Hgb 10.8 L, Hct 33.2 L, MCV 84.7, MCH 27.6, MCHC 32.5, Plt Count 383, MPV 9.5, Immature Gran % (Auto) 0.700, Neut % (Auto) 48.8, Lymph % (Auto) 40.0, Creek % (Auto) 7.1, Eos % (Auto) 2.7, Baso % (Auto) 0.7, Absolute Neuts (auto) 5.9, Nucleated RBC % 0, APTT 66.8 H, Sodium 140, Potassium 3.7, Chloride 108 H, Carbon Dioxide 25.0, Anion Gap 7, BUN 18, Creatinine 0.74, Est GFR (MDRD) Af Amer 104, Est GFR (MDRD) Non-Af 86, B UN/Creatinine Ratio 24.5 H, Glucose 99, Calcium 9.1, Phosphorus 4.5, Magnesium 2.0, Total Bilirubin 0.20, Triglycerides 180, Cholesterol 199, LDL Cholesterol 121, VLDL Cholesterol 36, HDL Cholesterol 42 09/06/24 09:02: APTT 62.3 H Rhythm: EKG: ECHO: Stress Test: Cardiac Cath: PCI: CT Surgery: Holter monitor: EPS: PPM: CXR: Chest CT Scan: Radiography Diagnostic Testing: Radiology Impression Echocardiogram 09/05/24 19:28 Interpretation Summary The estimated ejection fraction is 55-60 %. Normal LV systolic function Mild TR Mild MR Contrast echo used Definity Comparison to previous echo no significant change. Ordering Physician: Gregoria Ambrocio Referring Physician: Nora Robertson Performed By: Marie Redman, RDFELA, RVT Upper Extremity CT 09/06/24 05:53 IMPRESSION: No demonstrated fracture or suspicious osseous lesion Anatomic alignment and preservation of the glenohumeral joint space Mild narrowing of the acromioclavicular joint space No upper rib fracture or pneumothorax No suspicious soft tissue swelling Electronically Signed: Ld Hansen MD at 8:24 EST ,
--- NOTE | 2024-09-06 16:00 | DCINST_ITS ---
Discharge Instructions Diet Discharge Diet: No restrictions DC O2, CPAP, BIPAP needs Additional Home O2 Discharge instructions: No Dressing / Incision Discharge Activity: - (Increase activity as tolerated) Follow Up Care Test Results: Test results from this visit will be discussed in further detail at your follow- up appointment, if applicable. Discharge Plan Admission Admit Date/Time: 09/05/24 18:29 Primary Reason for Your Visit: Fall Attending Provider: Samaria Alvarado Primary Care Provider: Nora Robertson NP Consulting Providers: Max Foley; Gregoria Ambrocio Instructions Patient Instructions: ED Fall Prevention Additional Instructions / Restrictions: DISCHARGE INSTRUCTIONS PLEASE READ -Please follow-up with the cardiology office in 1 week. Please call their office on Sunday ([phone]) to schedule your follow-up appointment. You will be set up with a temporary heart monitor at your follow-up appointment -Please call your primary care provider's office upon discharge to schedule a hospital follow up within 1 week. -For any concerning signs or symptoms please call 911 or proceed to the nearest emergency department Discharge Orders/Prescriptions Prescriptions: Continued ascorbic acid (vitamin C) 500 mg tablet 500 mg PO DAILY acetaminophen 500 mg tablet 500 - 1,000 mg PO TID-QID PRN (Reason: fever or pain) Qty: 60 0RF atenolol 25 mg tablet 25 mg PO QDAY Qty: 30 0RF loratadine 10 mg tablet 10 mg PO QDAY PRN (Reason: allergy symptoms) Qty: 30 0RF cholecalciferol (vitamin D3) 25 mcg (1,000 unit) capsule 1,000 unit PO QDAY Qty: 30 0RF ibuprofen 600 mg tablet 600 mg PO TID-QID PRN (Reason: pain) Qty: 30 0RF fluoxetine 20 mg capsule 20 mg PO DAILY Referrals / Follow Up: Vishal Ospina MD [Med Staff - Active Staff] - ( -Please follow-up with the cardiology office upon discharge. Please call their office to schedule hospital follow-up appointment upon discharge.) Nora Robertson NP, SUK[facility]AR-C [Primary Care Provider] - Within 1 Week Disposition Disposition (needs filled in before D/C Order can be placed): Home, Self Care
--- NOTE | 2024-09-06 16:02 | PCM.DC.SUM ---
Providers Date of Admission: 09/05/24 Date of Discharge: 09/06/24 Primary Care Physician: WESTON Pang Consultations 09/05/24 19:28 Consult: Cardiology Routine Consulting Provider: Max Foley Reason for Consult: Chest Pain EMERGENT Consult: No MD Notified: Yes Date Notified: 09/05/24 Time Notified: 18:35 Method of Notification: ED Physician Initiated Reason For Visit: TROPONIN ELEVATION Diagnosis Discharge Diagnosis (1) Hypertension: Status: Chronic Code(s): I10 - Essential (primary) hypertension Qualifiers: Hypertension type: unspecified Qualified Code(s): I10 - Essential (primary) hypertension (2) Elevated troponin I level: Status: Acute Code(s): R79.89 - Other specified abnormal findings of blood chemistry Plan # Mechanical fall # Brief altered mental status resolved # Elevated troponin resolved #Depression/anxiety Medications at Discharge Home Medications ascorbic acid (vitamin C) 500 mg tablet 500 mg PO DAILY 12/29/19 acetaminophen 500 mg tablet 500 - 1,000 mg (1 - 2 x 500 mg) PO TID-QID PRN fever or pain #60 tabs 07/11/22 atenolol 25 mg tablet 25 mg PO QDAY #30 tabs 01/08/24 cholecalciferol (vitamin D3) 25 mcg (1,000 unit) capsule 1,000 unit PO QDAY #30 caps 01/08/24 loratadine 10 mg tablet 10 mg PO QDAY PRN allergy symptoms #30 tabs 01/08/24 ibuprofen 600 mg tablet 600 mg PO TID-QID PRN pain #30 tabs 06/17/24 fluoxetine 20 mg capsule 20 mg PO DAILY 09/05/24 Hospital Course Summary of Care Provided Minutes Spent on Discharge: 32 Hospital Course: Per HPI: SUHAS ABURTO, is a 59 F who presented to the emergency department at [facility] on 09/05/2020 for due to an unresponsive episode. Patient reported that she was walking out in front of a store and was with the salesman and tripped on unlevel ground. She hit her knees and her shoulder and she stated that a store studio owner told her to lie on the ground and she called the ambulance. It does not sound as if she hit her head. On presentation she was complaining of some right shoulder discomfort, right knee pain and some left hip pain. She did not indicate she hit her head. However it was reported that she was very out of it and appeared awake but not interactive. Blood sugar per EMS was 99 but her initial blood pressure was 200/100 and her pupils were sluggish at that time. By the time of arrival she was answering questions and had no complaints. She denied any occurrence of chest pain or shortness of breath. She has no cardiac history and states she has no family cardiac history. She is a lifelong non-smoker. She does have a robust family history of coronary disease in both her brothers. Vital signs on presentation the emergency department showed temperature 97.7, heart rate 74, respiratory rate 16, blood pressure was 123/102 and pulse ox was 99% on room air. CBC showed a mild leukocytosis with white count of 11.2 but was otherwise unremarkable. Coags are normal. Chemistry panel was unremarkable. Lactic acid was 1.4. Liver function was normal. Initial troponin was 9 but repeat troponin was 94. EKG showed sinus rhythm with no ST-T wave changes concerning for acute ischemia and normal intervals. CT of the brain was normal. Chest x-ray was negative for any acute findings. 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 Given her unresponsive episode and troponin bump it was felt prudent to admit her to the hospital. INTERVAL HISTORY: Patient's troponin returned to normal, she had no further symptoms or complaints and echocardiogram with no significant abnormalities. Discussed with cardiology, it was felt reasonable for patient to be discharged and follow-up outpatient in the cardiology office on her present home medications and at that time she can be set up with an event monitor. Patient discharged home in stable condition Physical Exam Narrative General: Alert, oriented, no apparent distress HEENT: Atraumatic, normocephalic Eyes: Anicteric, normal conjunctiva, extraocular movements grossly intact Neck: Supple Respiratory: Clear to auscultation bilaterally, normal respiratory effort Cardiovascular: Regular rate and rhythm GI: Soft, nontender, nondistended Extremities: No edema Musculoskeletal: Moving all extremities Neuro: No overt focal neurological deficits Skin: No rashes appreciated Psych: Cooperative Weight / BMI Weight Weight: 60.5 kg Body Mass Index (BMI) 28.8 ABG / Lab / Microbiology Data 09/06/24 02:46 09/06/24 02:46 Laboratory: Laboratory Results - last 24 hr 09/05/24 15:03: Urine Opiates Screen NEGATIVE, Urine Methadone Screen NEGATIVE, Ur Barbiturates Screen NEGATIVE, Ur Phencyclidine Scrn NEGATIVE, Ur Amphetamines Screen NEGATIVE, MDMA (Ecstasy) Screen NEGATIVE, U Benzodiazepines Scrn NEGATIVE, Urine Cocaine Screen NEGATIVE, U Cannabinoids Screen NEGATIVE, Ur Drug Screen Comment 09/05/24 16:32: Troponin I High Sens 94 H 09/05/24 22:10: Troponin I High Sens 54 09/06/24 02:46: WBC 12.0 H, RBC 3.92 L, Hgb 10.8 L, Hct 33.2 L, MCV 84.7, MCH 27.6, MCHC 32.5, RDW Std Deviation 40.5, RDW Coeff of Jazmin 13.2, Plt Count 383, MPV 9.5, Immature Gran % (Auto) 0.700, Neut % (Auto) 48.8, Lymph % (Auto) 40.0, [place] % (Auto) 7.1, Eos % (Auto) 2.7, Baso % (Auto) 0.7, Absolute Neuts (auto) 5.9, Absolute Lymphs (auto) 4.78 H, Nucleated RBC % 0, APTT 66.8 H, Sodium 140, Potassium 3.7, Chloride 108 H, Carbon Dioxide 25.0, Anion Gap 7, BUN 18, Creatinine 0.74, Estim Creat Clear Calc 66.55, Est GFR (MDRD) Af Amer 104, Est GFR (MDRD) Non-Af 86, BUN/Creatinine Ratio 24.5 H, Glucose 99, Calcium 9.1, Phosphorus 4.5, Magnesium 2.0, Total Bilirubin 0.20, AST 17, ALT 22, Alkaline Phosphatase 70, Total Protein 6.8, Albumin 2.9 L, Globulin 3.9, Albumin/Globulin Ratio 0.7 L, Triglycerides 180, Cholesterol 199, LDL Cholesterol 121, VLDL Cholesterol 36, HDL Cholesterol 42, TSH 3.500 09/06/24 09:02: APTT 62.3 H Radiography Diagnostic Testing: Radiology Impression Echocardiogram 09/05/24 19:28 Interpretation Summary The estimated ejection fraction is 55-60 %. Normal LV systolic function Mild TR Mild MR Contrast echo used Definity Comparison to previous echo no significant change. Ordering Physician: Gregoria Ambrocio Referring Physician: Nora Robertson Performed By: Marie Redman, RDCS, RVT Upper Extremity CT 09/06/24 05:53 IMPRESSION: No demonstrated fracture or suspicious osseous lesion Anatomic alignment and preservation of the glenohumeral joint space Mild narrowing of the acromioclavicular joint space No upper rib fracture or pneumothorax No suspicious soft tissue swelling Electronically Signed: Ld Hansen MD at 8:24 EST Reading Location ID and State: [address] [place] [address] , Service support , D/C Instructions Discharge Diet: No restrictions DC O2, CPAP, BIPAP Needs Additional Home O2 Discharge instructions: No DC home with Oxygen: No Meaningful Use Info Meaningful Use Meaningful Use Diagnoses (Choose all that apply): None applicable Ischemic Stroke Statin Dosing Therapy Reference: STATIN DOSE THERAPY REFERENCE: * Patients > 75 years receive moderate or high dose statin therapy. * Patients 75 years or YOUNGER should receive HIGH intensity statin dose unless contraindicated. You will be required to document reason for non-treatment if statin daily dose does not meet guidelines. HIGH DOSE STATIN THERAPY DAILY Atorvastatin > than or = to 40 mg Rosuvastatin > than or = to 20 mg Amlodipine + Atorvastatin > than or = to 2.5/40 mg Ezetimibe + Simvastatin 10/80 mg Simvastatin 80mg Discharge Plan Admission Admit Date/Time: 09/05/24 18:29 Primary Reason for Your Visit: Fall Attending Provider: Samaria Alvarado Primary Care Provider: Nora Robertson TRACK GRINDER OPERATOR Consulting Providers: Max Foley; Gregoria Ambrocio Instructions Patient Instructions: ED Fall Prevention Additional Instructions / Restrictions: DISCHARGE INSTRUCTIONS PLEASE READ -Please follow-up with the cardiology office in 1 week. Please call their office on Sunday ([phone]) to schedule your follow-up appointment. You will be set up with a temporary heart monitor at your follow-up appointment -Please call your primary care provider's office upon discharge to schedule a hospital follow up within 1 week. -For any concerning signs or symptoms please call 911 or proceed to the nearest emergency department Discharge Orders/Prescriptions Prescriptions: Continued ascorbic acid (vitamin C) 500 mg tablet 500 mg PO DAILY acetaminophen 500 mg tablet 500 - 1,000 mg PO TID-QID PRN (Reason: fever or pain) Qty: 60 0RF atenolol 25 mg tablet 25 mg PO QDAY Qty: 30 0RF loratadine 10 mg tablet 10 mg PO QDAY PRN (Reason: allergy symptoms) Qty: 30 0RF cholecalciferol (vitamin D3) 25 mcg (1,000 unit) capsule 1,000 unit PO QDAY Qty: 30 0RF ibuprofen 600 mg tablet 600 mg PO TID-QID PRN (Reason: pain) Qty: 30 0RF fluoxetine 20 mg capsule 20 mg PO DAILY Referrals / Follow Up: Vishal Ospina MD [Med Staff - Active Staff] - ( -Please follow-up with the cardiology office upon discharge. Please call their office to schedule hospital follow-up appointment upon discharge.) Nora Robertson NP, TRACK GRINDER OPERATOR-C [Primary Care Provider] - Within 1 Week Disposition Disposition (needs filled in before D/C Order can be placed): Home, Self Care Charges/Coding Visit Charges Inpatient E&M: 29837 Disch Hosp >30min
== END 2024-09-06 16:40 | disposition home or self-care (01) | DRG 948 ==
LOC: ED 14:53 → PCU 19:12
PROVIDERS: Admitting Provider Internal Medicine; Emergency Provider Emergency Medicine; PCP Nurse Practitioner Family; Visit Provider Internal Medicine
DX: R79.89 Other specified abnormal findings of blood chemistry (principal); E55.9 Vitamin D deficiency, unspecified; F32.A Depression, unspecified; I10 Essential (primary) hypertension; J30.2 Other seasonal allergic rhinitis; F41.9 Anxiety disorder, unspecified; Z79.899 Other long term (current) drug therapy
CPT/HCPCS: 36415; 70450; 71045; 73200; 73502; 80053; 80061; 80307; 81001; 83605; 83735; 84100; 84443; 84484; 85025; 85610; 85730; 93005; 93306; 94668; 99285; Q9957; A4216; C8929

== ENCOUNTER 2025-09-30 00:52 | Emergency (ER) | payer SELFPAY ==
[2025-09-30 00:55] VITALS: BP 204/101; PULSE 89; RESP 34; TEMP 36.4; O2SAT 100; BMI 27.4
[2025-09-30 01:07] VITALS: BP 191/100
--- NOTE | 2025-09-30 01:20 | EKG12_ITS ---
Test Reason : DYSRHYTHMIA Blood Pressure : */* mmHG Vent. Rate : 77 BPM Atrial Rate : 77 BPM P-R Int : 160 ms QRS Dur : 90 ms QT Int : 372 ms P-R-T Axes : 58 -14 27 degrees QTcB Int : 420 ms Normal sinus rhythm Minimal voltage criteria for LVH, may be normal variant ( R in aVL ) Borderline ECG Confirmed by Baltazar Hoang ([id number]), script editor ALEX NARVAEZ ([id number]) on 09/30/2025 10:27:49 AM Referred By: JAZIEL Confirmed By: Baltazar Hoang
[2025-09-30] MEDS: 0.9% Normal Saline (1000mL) 1,000 ML 999 ML IV (01:35)
[2025-09-30 01:44] LABS: Hematocrit 34.9 % (37-47); Hemoglobin 11.1 g/dL (12.0-15.0); Immature Granulocytes Count 0.080 X10^3/uL (0.0-0.0); Mean Corp Hgb Conc 31.8 g/dL (32-36); Mean Corpuscular Volume 85.3 fL (81-99); Mean Platelet Vol. 9.6 fl (6.2-12.0); NRBC Flagged by Analyzer 0 % (0-5); POSITIVE DIFFERENTIAL YES; POSITIVE MORPHOLOGY YES; Platelet Count 344 K/mm3 (150-450); RBC Distribution Width CV 13.1 % (11.6-14.6); RBC Distribution Width SD 40.2 fl (35.1-43.9); Red Blood Count 4.09 M/mm3 (4.2-5.4); White Blood Count 12.4 K/mm3 (4.4-11.0)
--- NOTE | 2025-09-30 01:45 | RAD_ITS ---
PROCEDURE: CHEST 1 VIEW (PORTABLE) 09/29/2025 REASON FOR EXAM: DYSPNEA TECHNIQUE: Frontal view of the chest. COMPARISON: 05/27/2024 FINDINGS: Hardware: None. Heart: Cardiac and mediastinal contours are stable. Lungs: The lungs are clear. No pneumothorax or pleural effusion. Bones: The bones are unremarkable. RAD/Chest 1 View (Portable) IMPRESSION: No Acute Findings. Reading [facility]
[2025-09-30 01:54] LABS: D-Dimer Quantitative (DVT/PE) 0.28 FEU/ug/m (0.27-0.49)
--- OUTSIDE RECORDS SUMMARY | 2025-09-30 02:10 | XMS RPT_ITS | CCD ---
Author Organization [facility] Care Team Providers Care Satellite Dish Technician Name Role Phone Cassius Kilpatrick Chi Primary Care Provider Dr. María Marion Primary Care Provider Dr. María Marion Referring Provider Dr. Matt Gill Attending Provider [phone] Vishal Ospina Attending Provider PRINCE Gerber Attending Provider [phone] PRINCE Ruth Attending Provider DO Shelia Steele Primary Care Provider DO Shelia Steele Referring Provider Ruperto ANALYTICS LEAD, ANALYTICS LEAD-C Sherry Attending Provider Kei ANALYTICS LEAD, ANALYTICS LEAD-C Payal Attending Provider Shelia Steele DO Primary Care Provider Shelia Steele DO Primary Care Provider Shelia Steele DO Primary Care Provider Queden HORIZONTAL BORING MILL OPERATOR.ACCELERATOR SYSTEMS DIRECTOR, Nora A Primary Care Provider Shelia Steele DO Primary Care Provider QUEDEN, NORA A Primary Care Unavailable QUEDEN, NORA A Primary Care Unavailable QUEDEN, NORA A Referring Unavailable QUEDEN, NORA A Primary Care Unavailable JULISSA SOTO Referring Unavailable QUEDEN, NORA A Primary Care Unavailable QUEDEN, NORA A Primary Care Unavailable JULISSA SOTO Attending Unavailable Dr. Edgar Doss DO Emergency Provider [phone] Queden ANALYTICS LEAD-C, Nora Primary Care Provider [phone] QUEDEN, NORA A Primary Care Unavailable QUEDEN, NORA A Referring Unavailable QUEDEN, NORA A Attending Unavailable QUEDEN, NORA A Primary Care Unavailable QUEDEN, NORA A Referring Unavailable QUEDEN, NORA A Attending Unavailable QUEDEN, NORA A Attending Unavailable QUEDEN, NORA A Primary Care Unavailable Edgar Doss Attending Unavailable Queden, Nora Primary Care Unavailable Queden ANALYTICS LEAD, Nora Primary Care Unavailable Viry Barnard Attending Unavailable Gregoria Ambrocio Admitting Unavailable Queden ANALYTICS LEAD, Nora Primary Care Unavailable Samaria Alvarado Attending Unavailable Max Foley Consulting Unavailable Gregoria Ambrocio Consulting Unavailable Baltazar Hoang Attending Unavailable Baltazar Hoang Referring Unavailable Queden ANALYTICS LEAD, Nora Primary Care Unavailable Queden ANALYTICS LEAD, Nora Primary Care Unavailable Max Foley Attending Unavailable Queden ANALYTICS LEAD, Nora Primary Care Unavailable Samaria Alvarado Attending Unavailable Gregoria Ambrocio Admitting Unavailable Max Foley Consulting Unavailable Gregoria Ambrocio Consulting Unavailable Samaria Alvarado Consulting Unavailable Gregoria Ambrocio Attending Unavailable Queden ANALYTICS LEAD, Nora Referring Unavailable Queden ANALYTICS LEAD, Nora Primary Care Unavailable Lukas Redman NP Attending Unavailable Queden ANALYTICS LEAD, Nora Primary Care Unavailable Allergies Allergy Classification Reported Allergen(s) Allergy Type Date of Onset Reaction(s) Facility (20 sources) Sulfonamides (Antibiotic); Translations: [SULFA (SULFONAMIDE ANTIBIOTICS)] Propensity to adverse reactions [facility] (19 sources) atorvastatin; Translations: [ATORVASTATIN] Drug Allergy 2 Other: See Comments [facility] (6 sources) Sulfonamides (Antibiotic) Allergy to substance 2 Unknown [facility] (2 sources) Sulfonamides (Antibiotic) Drug allergy (disorder) 5 [facility] (1 source) atorvastatin Drug Allergy 5 [facility] Medications Current Medications Medication Drug Class(es) Dates Sig (Normalized) Sig (Original) acetaminophen 500 mg oral tablet (9 sources) Start: 09-27-2022 take 500-1000 mg by mouth three to four times daily Acetaminophen Active 500 - 1000 MG PO 3 to 4 times per day 60 July 11, 2022 12:00am Start: 02-19-2018 End: 08-27-2023 take 1 tablet by mouth every eight hours as needed acetaminophen (TYLENOL ARTHRITIS PAIN) 650 mg CR tablet Take 1 tablet by mouth every 8 hours as needed. 30 tablet 2 11/14/2022 08/27/2023 Discontinued Comment on above: Take 1 tablet by skye th every 8 hours as needed. amoxicillin 875 mg / clavulanate 125 mg oral tablet (2 sources) Penicillin-class Antibacterial Start: 4 End: take 1 tablet by mouth twice daily amoxicillin-clavul anate potassium (AUGMENTIN) 875-125 mg per tablet Take [...] above: Take 1 tablet by skye th two times a day for 5 days. ascorbic acid 500 mg oral tablet (8 sources) Vitamin C Start: 12-29-2019 take 500 mg by mouth once daily Ascorbic Acid (Vitamin C) Active 500 MG PO DAILY December 29, 2019 12:00am End: 08-27-2023 ASCORBIC ACID (VITAMIN C ORA L) Take by mouth once daily. 0 08/27/2023 Discontinued ASCORBIC ACID (V ITAMIN C ORAL) Take by mouth once daily. 0 Active Comment on above: Take by mouth once d aily. Aspirin (10 sources) Platelet Aggregation Inhibitor, Nonsteroidal Anti-inflammatory Drug aspirin (ASPIR-81 ORAL) Take by mouth. Active atenolol 25 mg oral tablet (20 sources) beta-Adrenergic Mark Start: 017 End: 025 take 1 tablet by mouth once daily atenolol (TENORMIN) 25 mg tablet Indications: Essential hypertension Take 1 tablet by mouth once daily. 90 tablet 1 02/24/2025 08/23/2025 Active Comment on above: Take 1 tablet by [facility] once daily. cephalexin 500 mg oral capsule (3 sources) Cephalosporin Antibacterial Start: End: take 1 capsule by mouth four times daily cephALEXin (KEFLEX) 500 mg capsule Indications: Acute UTI Take 1 capsule by mouth four times daily for 7 days. 28 capsule 11/12/2024 11/19/2024 Active cholecalciferol 0.025 mg oral capsule (20 sources) Vitamin D Start: take 1 capsule by mouth once daily Cholecalciferol (Vitamin D3) 25 mcg (1,000 unit) capsule Active 25 ug PO DAILY May 27, 2025 12:00am Start: 08-14-2017 End: 02-24-2025 take 1 capsule by mouth once daily Cholecalciferol, Vitamin D3, 25 mcg (1,000 unit) cap Indications: Vitamin D deficiency Take 1 capsule by mouth once daily. 90 capsule 1 02/24/2025 Active Start: 08-01-2017 End: 08-27-2023 take 1 capsule by mouth two times weekly cholecalciferol, Vitamin D3, (VITAMIN D3) 50,000 unit cap capsule Indications: Vitamin D deficiency Take 1 capsule by mouth twice a week. (ONE CAPSULE) FOR VITAMIN D DEFICIENCY 32 capsule 1 08/01/2017 08/27/2023 Discontinued Comment on above: Take 1 capsule by [facility] twice a week. (ONE CAPSULE) FOR VITAMIN D DEFICIENCY Take 1 capsule by [facility] once daily. citalopram 10 mg oral tablet (5 sources) Serotonin Reuptake Inhibitor Start: 02-22-2022 take 10 mg by mouth once daily Citalopram Active 10 MG PO DAILY February 22, 2022 12:00am FLUoxetine 20 mg oral capsule (20 sources) Serotonin Reuptake Inhibitor Start: 12-29-2019 End: 02-24-2025 take 1 capsule by mouth once daily Fluoxetine 20 mg capsule Active 20 mg PO DAILY May 27, 2025 12:00am Start: 06-04-2018 End: 12-29-2019 take 40 mg by mouth once daily Fluoxetine Discontinued 40 MG PO daily June 04, 2018 12:00am December 29, 2019 10:47am loratadine 10 mg oral tablet (20 sources) Start: 01-29-2018 End: 02-24-2025 take 1 tablet by mouth once daily Loratadine 10 mg tablet Active 10 mg PO DAILY May 27, 2025 12:00am Comment on above: Take 1 tablet by skye th once daily. TAKE ONE TABLET BY M OUTH ONCE DAILY Multivitamin preparation (5 sources) Start: 02-22-2022 take 1 tablet by mouth once daily Multivitamin Active 1 TABLET PO DAILY February 22, 2022 12:00am Start: 02-22-2022 take 1 tablet by skye th once daily Multivitamin Active 1 TABLET PO DAILY February 21, 2022 11:00pm naproxen 500 mg oral tablet (15 sources) Nonsteroidal Anti-inflammatory Drug Start: 09-18-2024 take 1 tablet by mouth twice daily as needed for pain naproxen (NAPROSYN) 500 mg tablet Indications: Upper back pain Take 1 tablet by mouth two times a day as needed for pain (FOR PAIN - TAKE WITH FOOD.). 60 tablet 09/18/2024 Active Start: 11-14-2022 End: 08-27-2023 take 1 tablet by mouth twice daily as needed for pain naproxen (NAPROSYN) 500 mg tablet Indications: Arthritis pain Take 1 tablet by mouth twice daily as needed (for pain/inflammation). Take with food. 30 tablet 0 11/14/2022 08/27/2023 Discontinued Comment on above: Take 1 tablet by skye twice daily as needed (for pain/inflammation). Take with food. predniSONE 20 mg oral tablet (6 sources) Start: 02-24-20 End: 02-28-20 take 1 tablet by mouth once daily at mealtime predniSONE (DELTASONE) 20 mg tablet Indications: Rash Take 1 tablet by mouth once daily for 4 days. Take daily with food. 4 tablet 0 02/23/2023 02/27/2023 Active Start: 06-18-2019 End: 10-27-2019 take 10 mg by mouth once Prednisone Discontinued 10 M G PO per package directions June 18, 2019 12:00am October 27, 2019 11:54am Comment on above: Take 1 tablet by skye th once daily for 4 days. Take daily with food. vitamin b12 1 mg oral capsule (8 sources) Vitamin B12 Start: 12-19-2018 take 1000 ug by mouth once daily Cyanocobalamin (Vitamin B-12) Active 1000 MCG PO DAILY December 19, 2018 1:00am Start: 05-01-2016 End: 08-27-2023 Cyanocobalamin (VITAMIN B-12 ) 50 mcg tab Take 500 mg by mouth once daily. 0 05/01/2016 08/27/2023 Discontinued Comment on above: Take 500 mg by mouth once daily. Completed/Discontinued Medications Medication Drug Class(es) Dates Sig (Normalized) Sig (Original) acetaminophen 325 mg / HYDROcodone bitartrate 5 mg oral tablet (5 sources) Opioid Agonist Start: 09-24-2017 End: 06-03-2018 take 1 tablet by mouth every four hours as needed Hydrocodone-Acetam inophen Discontinued 1 - 2 TABLET PO EVERY 4 HOURS NEEDED September 24, 2017 1:00am June 03, 2018 10:47am atorvastatin 10 mg oral tablet (5 sources) HMG-CoA Reductase Inhibitor Start: 12-19-2018 End: 01-08-2019 take 10 mg by mouth at bedtime Atorvastatin Discontinued 10 MG PO AT BEDTIME December 19, 2018 1:00am January 08, 2019 1:09pm azithromycin 250 mg oral tablet (5 sources) Macrolide Antimicrobial Start: 07-17-2022 End: 08-30-2022 take 2-5 tablets by mouth once daily Azithromycin (Zithromax Z-Marito) 250 mg tablet Discontinued 0 PO .COMPLEX 6 July 17, 2022 12:00am August 30, 2022 1:55pm take 500 mg today (day 1), then 250 mg for 4 days (days 2-5) PO baclofen 10 mg oral tablet (10 sources) gamma-Aminobutyric Acid-ergic Agonist Start: 06-18-2019 End: 10-27-2019 take 10 mg by mouth once daily Baclofen Discontinued 10 MG PO DAILY June 18, 2019 12:00am October 27, 2019 11:54am Start: 06-03-2018 End: 06-11-2018 take 10 mg by mouth at bedtime Baclofen Discontinued 1 0 MG PO AT BEDTIME June 03, 2018 12:00am June 11, 2018 1:33pm benoxinate hydrochloride 4 mg/ml / fluorescein sodium 3 mg/ml ophthalmic solution (1 source) Diagnostic Dye Start: 02-18-2024 End: 02-19-2024 fluorescein-benoxinate 0.3-0.4 % 1 Drop (FLURESS) buPROPion hydrochloride 75 mg oral tablet (8 sources) Aminoketone Start: 06-04-2018 End: 12-19-2018 take 75 mg by mouth twice daily Bupropion Hcl Discontinued 75 MG PO TWICE A DAY June 04, 2018 12:00am December 19, 2018 2:46pm Start: 02-19-2018 End: 08-27-2023 take 1 tablet by mouth twice daily buPROPion (WELLBUTRIN) 100 mg tablet Indications: Moderate episode of recurrent major depressive disorder (HCC) Take 1 tablet by mouth twice daily. 60 tablet 2 02/19/2018 08/27/2023 Discontinued Comment on above: Take 1 tablet by skye th twice daily. cbd oil (5 sources) Start: 12-29-2019 End: 04-22-2021 cbd oil Discontinued PO DAILY December 29, 2019 12:00am April 22, 2021 2:34pm Start: 12-29-2019 End: 04-22-2021 cbd oil Discontinued PO BONIFACIO Y December 28, 2019 11:00pm April 22, 2021 1:34pm diclofenac sodium 50 mg delayed release oral tablet (10 sources) Nonsteroidal Anti-inflammatory Drug Start: 06-18-2019 End: 10-27-2019 take 50 mg by mouth twice daily Diclofenac Sodium Discontinued 50 MG PO TWICE A DAY June 18, 2019 12:00am October 27, 2019 11:54am Start: 06-03-2018 End: 06-11-2018 take 25 mg by mouth twice daily Diclofenac Sodium Discontinued 25 MG PO TWICE A DAY June 03, 2018 12:00am June 11, 2018 1:33pm escitalopram 20 mg oral tablet (3 sources) Serotonin Reuptake Inhibitor Start: 02-19-2018 End: 08-27-2023 take 1 tablet by mouth once daily escitalopram oxalate (LEXAPRO) 20 mg tablet Indications: generalized anxiety disorder Take 1 tablet by mouth once daily. 30 tablet 2 02/19/2018 08/27/2023 Discontinued Comment on above: Take 1 tablet by skye th once daily. etodolac 300 mg oral capsule (3 sources) Nonsteroidal Anti-inflammatory Drug Start: 02-19-2018 End: 08-27-2023 take 1 capsule by mouth every eight hours etodolac (LODINE) 300 mg capsule Take 1 capsule by mouth every 8 hours. 90 capsule 2 02/19/2018 08/27/2023 Discontinued Comment on above: Take 1 capsule by [facility] every 8 hours. famotidine 40 mg oral tablet (10 sources) Histamine-2 Receptor Antagonist Start: 12-19-2018 End: 06-18-2019 take 40 mg by mouth once daily Famotidine Discontinued 40 MG PO DAILY December 19, 2018 1:00am June 18, 2019 10:24am Start: 06-04-2018 End: 06-11-2018 take 40 mg by mouth once daily Famotidine Discontinued 40 MG PO daily June 04, 2018 12:00am June 11, 2018 1:33pm ferrous sulfate 325 mg oral tablet (8 sources) Start: 01-10-2017 End: 08-27-2023 take 325 mg by mouth once daily Ferrous Sulfate Discontinued 325 MG PO DAILY December 19, 2018 1:00am June 18, 2019 10:24am Comment on above: Take [facility] by [facility] with breakfast. fluticasone propionate 0.05 mg/actuat metered dose nasal spray (3 sources) Corticosteroid Start: 01-10-2017 End: 08-27-2023 take 2 spray(s) by mouth once daily fluticasone (FLONASE) 50 mcg/actuation nasal spray Use 2 Sprays in each nostril once daily. Rinse mouth after use. 1 Bottle 11 01/10/2017 08/27/2023 Discontinued Comment on above: Use 2 Sprays in each nostril once daily. Rinse mouth after use. ibuprofen 600 mg oral tablet (18 sources) Nonsteroidal Anti-inflammatory Drug Start: 11-14-2022 End: 08-27-2023 take 1 tablet by mouth every six hours as needed for pain ibuprofen (MOTRIN) 600 mg tablet Indications: Arthritis pain Take 1 tablet by mouth every 6 hours as needed for pain. 30 tablet 0 11/14/2022 08/27/2023 Discontinued Start: 07-11-2022 take 600 mg by mouth three to four times daily Ibuprofen Active 600 MG PO 3 to 4 times per day 60 July 11, 2022 3:23pm Start: 05-13-2022 End: 07-11-2022 take 600 mg by mouth every six hours Ibuprofen Discontinued 600 MG PO EVERY 6 HOURS 60 May 13, 2022 12:00am July 11, 2022 3:29pm Start: 07-06-2020 End: 07-21-2020 take 600 mg by mouth every eight hours as needed Ibuprofen Discontinued 600 MG PO EVERY 8 HOURS NEEDED July 06, 2020 12:00am July 21, 2020 11:30am Comment on above: Take 1 tablet by [facility] every 6 hours as needed for pain. LORazepam 0.5 mg oral tablet (5 sources) Benzodiazepine Start: 06-04-20 18 End: 06-11-20 take 0.5 mg by mouth at bedtime Lorazepam Discontinued 0.5 MG PO AT BEDTIME June 04, 2018 12:00am June 11, 2018 1:33pm MULTIVITAMIN ORAL (3 sources) End: 08-27-20 MULTIVITAMIN ORAL Take by mouth. 0 08/27/2023 Discontinued MULTIVITAMIN ORA L Take by mouth. 0 Active Comment on above: Take by mouth. norethindrone 0.35 mg oral tablet (5 sources) Start: 07-10-20 18 End: 12-20-19 take 1 tablet by mouth once daily Norethindrone (Contraceptive) (Ortho Micronor) 0.35 mg tablet Discontinued 0.35 MG PO DAILY July 10, 2018 12:00am December 19, 2018 2:45pm start day 1 of menstrual cycle omeprazole 20 mg delayed release oral capsule (3 sources) Proton Pump Inhibitor Start: 08-17-20 End: 08-27-20 take 1 capsule by mouth once daily at breakfast omeprazole (PRILOSEC) 20 mg capsule Take 1 capsule by mouth once daily. Before morning meal 90 capsule 3 08/17/2017 08/27/2023 Discontinued Comment on above: Take 1 capsule by [facility] once daily. Before morning meal phenylephrine hydrochloride 25 mg/ml ophthalmic solution (2 sources) alpha-1 Adrenergic Agonist Start: 02-18-20 End: 02-19-20 PHENYLephrine 2.5 % 1 Drop (AK-DILATE, DELILAH-SYNEPHRINE) polysaccharide iron complex 150 mg oral capsule (5 sources) Start: 06-04-20 18 End: 12-20-19 Polysaccharide Iron Complex (Ferrex 150) 150 mg iron capsule Discontinued 150 MG PO daily June 04, 2018 12:00am December 19, 2018 2:43pm premier adrenal support (5 sources) Start: 02-23-20 End: 07-11-20 premier adrenal support Discontinued PO February 22, 2022 12:00am July 11, 2022 3:05pm Start: 02-22-2022 End: 07-11-2022 premier adrenal support Disc ontinued PO February 21, 2022 11:00pm July 11, 2022 2:05pm proparacaine hydrochloride 5 mg/ml ophthalmic solution (1 source) Local Anesthetic Start: 02-18-2024 End: 02-19-2024 proparacaine 0.5 % 1 Drop (ALCAINE) triamcinolone acetonide 0.25 mg/ml topical cream (2 sources) Corticosteroid Start: 02-23-2023 End: 08-27-2023 triamcinolone (KENALOG) 0.025 % cream Indications: Rash Apply 1 application to affected area twice daily. 80 g 1 02/23/2023 08/27/2023 Discontinued Comment on above: Apply 1 application to affected area twice daily. trolamine salicylate 100 mg/ml topical cream (3 sources) Start: 11-14-2022 End: 08-27-2023 trolamine salicylate (ASPERCREME) 10 % cream Indications: Arthritis pain Apply to affected area as needed. 85 g 0 11/14/2022 08/27/2023 Discontinued Comment on above: Apply to affected ar ea as needed. tropicamide 10 mg/ml ophthalmic solution (2 sources) Anticholinergic Start: 02-18-2024 End: 02-19-2024 tropicamide 1 % 1 Drop (MYDRIACYL) Turmeric extract (5 sources) Start: 02-22-2022 End: 07-11-2022 Turmeric Discontinued MG PO February 22, 2022 12:00am July 11, 2022 3:05pm Start: 02-22-2022 End: 07-11-2022 Turmeric Discontinued MG PO February 21, 2022 11:00pm July 11, 2022 2:05pm Problems Active Problems Problem Classification Problem Date Documented Date Episodic/Chronic Adjustment disorders (20 sources) Adjustment disorder with mixed anxiety and depressed mood; Translations: [Adjustment disorder with mixed anxiety and depressed mood] Onset: 12-29-2013 03-24-2014 Chronic Administrative/social admission (5 sources) General problem AND/OR complaint; Translations: [Persons encountering health services in other specified circumstances] 02-02-2023 Episodic Blindness and vision defects (2 sources) Blurring of visual image; Translations: [Other visual disturbances] 02-18-2024 Episodic Cataract (1 source) Artificial lens present; Translations: [Presence of intraocular lens] 02-18-2024 Chronic Conditions associated with dizziness or vertigo (2 sources) Dizziness and giddiness; Translations: [Dizziness and giddiness] Onset: 06-02-2025 Episodic Essential hypertension (20 sources) Essential hypertension; Translations: [Essential (primary) hypertension] Onset: 07-04-2007 Chronic Genitourinary symptoms and ill-defined conditions (1 source) Dysuria; Translations: [Painful micturition, unspecified] 11-12-2024 Episodic Headache; including migraine (20 sources) Tension-type headache; Translations: [Tension-type headache, unspecified, not intractable] Onset: 01-27-2016 01-27-2016 Chronic Malaise and fatigue (2 sources) Fatigue; Translations: [Other fatigue] 02-05-2024 Episodic Menopausal disorders (5 sources) Menopausal syndrome; Translations: [Menopausal and female climacteric states] 07-13-2018 Chronic Menstrual disorders (5 sources) Irregular periods; Translations: [Irregular menstruation, unspecified] 07-13-2018 Chronic Miscellaneous mental health disorders (20 sources) Psychological finding; Translations: [Psychological and behavioral factors associated with disorders or diseases classified elsewhere] Onset: 12-29-2013 12-29-2013 Chronic Mood disorders (20 sources) Recurrent major depressive episodes; Translations: [Major depressive disorder, recurrent, unspecified] Onset: 08-19-2007 08-01-2016 Chronic Nonspecific chest pain (5 sources) Chest pain; Translations: [Chest pain, unspecified] 07-13-2018 Episodic Nutritional deficiencies (6 sources) Vitamin D deficiency; Translations: [Vitamin D deficiency, unspecified] Onset: 07-21-2024 02-21-2024 Chronic Osteoarthritis (12 sources) Unspecified osteoarthritis, unspecified site; Translations: [Arthropathy, unspecified, site unspecified] Onset: 07-21-2024 Chronic Other connective tissue disease (5 sources) Tendinitis of ankle; Translations: [Other enthesopathy of left foot and ankle] 07-07-2020 Episodic Other connective tissue disease (5 sources) Pain in right foot; Translations: [Pain in right foot] 02-18-2025 Episodic Other connective tissue disease (1 source) Pain in right foot; Translations: [Foot pain, right] Onset: 02-18-2025 Episodic Other eye disorders (1 source) Tear film insufficiency; Translations: [Dry eye syndrome of bilateral lacrimal glands] 02-18-2024 Episodic Other lower respiratory disease (2 sources) Cough; Translations: [Acute cough] 09-12-2023 Episodic Other nervous system disorders (2 sources) Paresthesia of hand ; Translations: [Anesthesia of skin] 03-01-2025 Episodic Other non-traumatic joint disorders (6 sources) Pain in unspecified knee; Translations: [Knee pain] 08-28-2022 Episodic Other non-traumatic joint disorders (1 source) Pain in left knee; Translations: [Pain in left knee] Onset: 06-04-2025 Episodic Other nutritional; endocrine; and metabolic disorders (1 source) History of iron deficiency; Translations: [Personal history of other endocrine, nutritional and metabolic disease] 02-21-2024 Episodic Other screening for suspected conditions (not mental disorders or infectious disease) (20 sources) Mammography abnormal; Translations: [Other abnormal and inconclusive findings on diagnostic imaging of breast] Onset: 07-06-2017 07-06-2017 Episodic Other skin disorders (5 sources) Hirsutism; Translations: [Hirsutism] 07-13-2018 Episodic Other skin disorders (1 source) Eruption; Translations: [Rash and other nonspecific skin eruption] Episodic Other upper respiratory infections (2 sources) Bacterial sinusitis; Translations: [Chronic sinusitis, unspecified] 09-12-2023 Chronic Other upper respiratory infections (7 sources) Nasopharyngitis; Translations: [Acute nasopharyngitis [common cold]] 05-13-2022 Episodic Poisoning by psychotropic agents (1 source) Accidental cannabis overdose; Translations: [Accidental cannabis overdose] 05-27-2025 Episodic Residual codes; unclassified (4 sources) Daytime hypersomnia; Translations: [Hypersomnia, unspecified] 01-19-2023 Chronic Residual codes; unclassified (1 source) Hypersomnia, unspecified; Translations: [Hypersomnia, unspecified] 02-02-2023 Chronic Syncope (1 source) Near syncope; Translations: [Syncope and collapse] 05-27-2025 Episodic Unclassified (20 sources) Abnormal cytology findings; Translations: [ASCUS on Pap smear] Onset: 08-23-2011 10-10-2021 Unclassified (2 sources) Patient encounter status 03-01-2025 Urinary tract infections (1 source) Acute urinary tract infection; Translations: [Urinary tract infection, site not specified] 11-12-2024 Episodic Viral infection (1 source) Viral disease; Translations: [Viral infection, unspecified] 03-29-2024 Episodic Past or Other Problems Problem Classification Problem Date Documented Da te Episodic/Chronic Anxiety disorders (20 sources) Mixed anxiety and depressive disorder; Translations: [Anxiety disorder, unspecified] Onset: 07-04-2007 Resolved: 06-28-2016 02-22-2022 Chronic Biliary tract disease (20 sources) Gallstone; Translations: [Calculus of gallbladder without cholecystitis without obstruction] Onset: 07-13-2008 10-14-2008 Episodic Deficiency and other anemia (20 sources) Iron deficiency anemia; Translations: [Iron deficiency anemia, unspecified] Onset: 09-28-2011 09-28-2011 Episodic Deficiency and other anemia (20 sources) Anemia; Translations: [Anemia, unspecified] Onset: 08-31-2011 Resolved: 06-28-2016 06-04-2018 Episodic Deficiency and other anemia (2 sources) Iron deficiency anemia, unspecified; Translations: [Iron deficiency anemia, unspecified iron deficiency anemia type] Onset: 09-28-2011 Episodic Gastritis and duodenitis (20 sources) Acute gastritis; Translations: [Acute gastritis without bleeding] Onset: 10-04-2010 10-04-2010 Episodic Gastrointestinal hemorrhage (20 sources) Hematochezia; Translations: [Melena] Onset: 08-31-2011 Resolved: 03-24-2014 03-24-2014 Episodic Headache; including migraine (20 sources) Headache; Translations: [Headache] Onset: 07-04-2007 Resolved: 06-28-2016 06-28-2016 Episodic Immunizations and screening for infectious disease (8 sources) Patient encounter status; Translations: [Encounter for screening for COVID-19] Onset: 07-21-2024 05-13-2022 Episodic Other disorders of stomach and duodenum (20 sources) Disorder of function of stomach; Translations: [Other diseases of stomach and duodenum] Onset: 10-04-2010 Resolved: 11-16-2015 11-16-2015 Episodic Other nervous system disorders (1 source) Anesthesia of skin; Translations: [Numbness and tingling in left hand] Onset: 02-24-2025 Episodic Other nervous system disorders (1 source) Paresthesia of skin; Translations: [Numbness and tingling in left hand] Onset: 02-24-2025 Episodic Residual codes; unclassified (20 sources) Insomnia; Translations: [Insomnia, unspecified] Onset: 07-04-2007 05-01-2016 Episodic Residual codes; unclassified (1 source) Altered mental status, unspecified; Translations: [Altered mental status, unspecified] Onset: 09-07-2024 Episodic Spondylosis; intervertebral disc disorders; other back problems (20 sources) Neck pain; Translations: [Cervicalgia] Onset: 01-23-2013 Resolved: 06-28-2016 11-06-2013 Episodic Results Test Name Value Interpretation Reference Range Facility Troponin T HS 4 HRon 025 Trop T High Sen Normal <=14 [facility] Comment on above: Result Comment: Canc elled via OM: Order cancelled - Patient discharged Performed By: #### L 499.0043 #### [facility] [address], [place], [id number] Performed By: #### L 400.0001 #### [facility] [address], [place], [id number] Amphetamine detection with 1 000 ng/mL as cutoffOrdered By: Edgar Doss on 05-27-2025 Amphetamines Screen method >1000 ng/mL Ql (U) Negative < 200 ng/mL [facility] Anion gap in Serum or Plasma Ordered By: Edgar Doss on 05-27-2025 Anion gap [Moles/Vol] 16 mmol/L High - [facility] BUN/creatinine ratioOrdered By: Edgar Doss on 05-27-2025 Urea nitrogen/Creatinine [Mass ratio] 18.4 mg/mg 08-03 [facility] Basic Metabolic Profile (BMP )on 05-27-2025 BUN/CRE 18.4 RATIO Normal 08-03 [facility] Comment on above: Performed By: #### L 500.2500, L501.4021 #### [facility] [address] [place], [address] Performed By: #### L 500.2500, L100.0500 #### [facility] [address] [place], [address] Calcium [Mass/Vol] 9.3 mg/dL Normal 7.6-11.0 [facility] Comment on above: Performed By: #### L 500.2499, L501.4021 #### [facility] [address] [place], [address] Performed By: #### L 500.2499, L100.0500 #### [facility] [address] [place], [address] Chloride [Moles/Vol] 101 mmol/L Normal 98-108 [facility] Comment on above: Performed By: #### L 500.2499, L501.4021 #### [facility] [address] [place], [address] Performed By: #### L 500.2499, L100.0500 #### [facility] [address] [place], [address] CO2 [Moles/Vol] 19.6 mmol/L Low 21.0-32.0 [facility] Comment on above: Performed By: #### L 500.2499, L501.4021 #### [facility] [address] [place], [address] Performed By: #### L 500.2500, L100.0500 #### [facility] [address] [place], [address] Creatinine [Mass/Vol] 0.80 mg/dL Normal 0.70-1.20 [facility] Comment on above: Performed By: #### L 500.2500, L501.4021 #### [facility] [address] [place], [address] Performed By: #### L 500.2500, L100.0500 #### [facility] [address] [place], [address] ECRCL 63.71 ml/min Normal 50-250 [facility] Comment on above: Performed By: #### L 500.2500, L501.4021 #### [facility] [address] [place], [address] Performed By: #### L 500.2500, L100.0500 #### [facility] [address] [place], [address] GAP 16 High 5-15 [facility] Comment on above: Performed By: #### L 500.2499, L501.4021 #### [facility] [address] [place], [address] Performed By: #### L 500.2500, L100.0500 #### [facility] [address] [place], [address] GFR/1.73 sq M.predicted among non-blacks MDRD (S/P/Bld) [Vol rate/Area] 85 mL/min/{1.73_m2} Normal >60 [facility] Comment on above: Result Comment: mL/m in/1.73m2 CKD-EPI Creatinine Equation (2020) Performed By: #### L 500.2500, L501.4021 #### [facility] [address] [place], [address] Performed By: #### L 500.2500, L100.0500 #### [facility] [address] [place], [address] Glucose [Mass/Vol] 195 mg/dL High 70-99 [facility] Comment on above: Performed By: #### L 500.2500, L501.4021 #### [facility] [address] [place], [address] Performed By: #### L 500.2500, L100.0500 #### [facility] [address] [place], [address] Potassium [Moles/Vol] 3.4 mmol/L Normal 3.3-5.1 [facility] Comment on above: Performed By: #### L 500.2500, L501.4021 #### [facility] [address] [place], [address] Performed By: #### L 500.2500, L100.0500 #### [facility] [address] [place], [address] Sodium [Moles/Vol] 136 mmol/L Normal 133-145 [facility] Comment on above: Performed By: #### L 500.2500, L501.4021 #### [facility] [address] [place], [address] Performed By: #### L 500.2500, L100.0500 #### [facility] [address] [place], [address] Urea nitrogen [Mass/Vol] 15 mg/dL Normal 4-19 [facility] Comment on above: Performed By: #### L 500.2500, L501.4021 #### [facility] [address] [place], [address] Performed By: #### L 500.2500, L100.0500 #### [facility] [address] [place], [address] Bilirubin Test strip Ql (U)O rdered By: Edgar Doss on 05-27-2025 Bilirubin Ql (U) Negative Negative [facility] Carbon dioxide, total [Moles /volume] in Central venous bloodOrdered By: Edgar Doss on 05-27-2025 CO2 [Moles/Vol] 19.6 mmol/L Low 21.0-32.0 [facility] Chest 1 View (Portable)on Chest 1 View (Portable) [facility] Imaging Services [address] [place] [address] Chest 1 View (Portable) MR#: [id number] Acct: [id number] Name: SUHAS ABURTO Rep #: [id number] : 1965 F 59 From: Massimo Beth MD PCP: WESTON Pang Status: REG ER Study: Chest 1 View (Portable) Date of Exam: 05/27/25 Exam# [id number] Ordering Dr: Edgar Doss DO PROCEDURE: CHEST 1 VIEW (PORTABLE) 05/27/2025 REASON FOR EXAM: NEAR SYNCOPE TECHNIQUE: Frontal view of the chest. COMPARISON: None available. FINDINGS: Hardware: None. Heart: The heart size is normal. Lungs: The lungs are clear. Bones: The bones are unremarkable. RAD/Chest 1 View (Portable) IMPRESSION: No Acute Findings. Reading Location: [facility] CC: ANALYTICS LEAD-C Nora Robertson; Dr. 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 COMPARISON: None available. FINDINGS: Hardware: None. Heart: The heart size is normal. Lungs: The lungs are clear. Bones: The bones are unremarkable. RAD/Chest 1 View (Portable) IMPRESSION: No Acute Findings. Reading Location: [facility] CC: ANALYTICS LEAD-C Nora Robertson; Dr. 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 Normal [facility] Chloride assayOrdered By: Markus Doss on 05-27-2025 Chloride [Moles/Vol] 101 mmol/L 98-108 [facility] Emergency Department Summary on 05-27-2025 Emergency Department Summary [facility] Medical Records Department [address] [place] [address] Emergency Department Summary 05/27/25 MR#: [id number] Acct: [id number] Name: SUHAS ABURTO Rep #: [id number] : 1965 59 From: Edgar Lima PCP: WESTON Pang Status:DEP ER Location: ED HPI History of Present Illness Chief Complaint: Dizziness Informant: patient and family Narrative Narrative: Presents to the ED by EMS from work. Patient home to [email or web address], daughter currently present. 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 There is no dizzy spinning sensations. She reports she ate her 's oatmeal then drink jerri pinky she started feeling better then symptoms got worse again. Transient nausea. No vomiting. No urinary symptoms. No recent cough. No prodromal chest pains or shortness of breath. She checked her blood pressure was elevated in the 180s typically is 140s. She takes atenolol with no missed doses. Denies any cardiac history. She states she became more thirsty today. She has no reported polyuria or polydipsia. No diabetes history. Prior similar symptoms: No PFSH PFSH Medical History Anxiety Hypertension Home Medications ???Medication ???Instructions ???Recorded ???Last Taken ???Type atenolol 25 mg tablet 25 mg PO DAILY 05/27/25 Unknown Hi story cholecalciferol (vitamin D3) 25 25 mcg PO DAILY 05/27/25 Unknown H istory mcg (1,000 unit) capsule fluoxetine 20 mg capsule 20 mg PO DAILY 05/27/25 Unknown Hi story loratadine 10 mg tablet 10 mg PO DAILY 05/27/25 Unknown Hi story Allergy/AdvReac Type Severity Reaction Status Date / Time Sulfa (Sulfonamide Allergy Mild UNKNOWN Verified 05/27/25 19:23 Antibiotics) Social History Smoking Status: Never smoker ROS ROS ED Constitutional Constitutional ED: Denies chills, fever(s) or sweats ENT ENT ED: Denies sore throat Cardiovascular Cardiovascular: Reports palpitations and other Details: Lightheaded ; Denies chest pain, leg edema or racing heartbeat Respiratory/Chest Respiratory/Chest: Denies cough, dyspnea or dyspnea on exertion Gastrointestinal Gastrointestinal: Denies abdominal pain, diarrhea, nausea or vomiting Genitourinary Genitourinary ED: Denies dysuria, hematuria or urinary frequency Musculoskeletal Musculoskeletal: Denies back pain, extremity pain or neck pain Integumentary Denies rash or wounds Neurologic Neurologic: Denies headache(s), paresthesias or weakness EXAM Physical Exam Const Vital Signs: 05/27/25 19:23 05/27/25 21:30 05/27/25 22:00 Temperature 98.7 F Temperature Source Oral Pulse Rate 120 H 72 72 Respiratory Rate 24 H 22 H 18 Blood Pressure 197/91 H 185/75 H 166/78 H Blood Pressure Mean 126 111 107 Pulse Ox 99 100 99 Oxygen Delivery Method Room Air Room Air 05/27/25 23:09 05/27/25 23:09 Temperature 98.1 F 98.1 F Temperature Source Oral Pulse Rate 97 97 Respiratory Rate 16 16 Blood Pressure 166/78 H 166/78 H Blood Pressure Mean 107 107 Pulse Ox 99 98 Oxygen Delivery Method Room Air Positive well nourished and well developed General Appearance ED: well developed and NAD HEENT Reports dry mucous membranes normocephalic and atraumatic Mouth ED: Yes dry mucous membranes Mouth: dry mucous membranes Eyes General Eye ED: Yes normal appearance of both eyes Neck full ROM Chest Wall Chest: Negative for tenderness Resp normal respiratory effort and normal air movement Effort and Inspection: symmetric chest movement; Negative for respiratory distress Cardio regular rhythm and no murmurs Rate: tachycardic Peripheral Pulses: pulses 2+ throughout GI normal to inspection, nondistended, normoactive bowel sounds and non-tender Palpation: Negative for guarding or rebound tenderness present Extremity normal to inspection General Extremety ED: Negative for edema or tenderness General Extremity: Negative for edema Neuro oriented x3, CN's II-XII intact bilaterally and no sensory deficits noted Sensorium / Orientation: awake and alert Skin no rashes or lesions noted and no wounds MDM MDM MDM Narrative Medical decision making narrative: Interventions / MDM: Differential diagnosis: Accidental marijuana ingestion, near syncope, elevated blood pressure Diagnosis considered but do not suspect: No clinical hypertensive emergency. My EKG interpretation: Sinus rate of 90, no ST or T wave changes. QTc 457. Imaging independently reviewed and interpreted by myself: 1 view chest x-ray: No acute process. External documents reviewed: N/A Test considered but not ordered:N/A ED course: Presenting blood pressure 197/91 p (more content not included)... Normal [facility] Emergency Department Summary [facility] Medical Records Department [address] [place] [address] Emergency Department Summary 05/27/25 MR#: [id number] Acct: [id number] Name: SUHAS ABURTO Rep #: [id number] : 1965 59 From: Edgar Lima PCP: WESTON Pang Status:DEP ER Location: ED HPI History of Present Illness Chief Complaint: Dizziness Informant: patient and family Narrative Narrative: Presents to the ED by EMS from work. Patient home to [place], daughter currently present. 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 There is no dizzy spinning sensations. She reports she ate her 's oatmeal then drink jerri pinky she started feeling better then symptoms got worse again. Transient nausea. No vomiting. No urinary symptoms. No recent cough. No prodromal chest pains or shortness of breath. She checked her blood pressure was elevated in the 180s typically is 140s. She takes atenolol with no missed doses. Denies any cardiac history. She states she became more thirsty today. She has no reported polyuria or polydipsia. No diabetes history. Prior similar symptoms: No PFSH PFS Medical History Anxiety Hypertension Home Medications ???Medication ???Instructions ???Recorded ???Last Taken ???Type atenolol 25 mg tablet 25 mg PO DAILY 05/27/25 Unknown Hi story cholecalciferol (vitamin D3) 25 25 mcg PO DAILY 05/27/25 Unknown H istory mcg (1,000 unit) capsule fluoxetine 20 mg capsule 20 mg PO DAILY 05/27/25 Unknown Hi story loratadine 10 mg tablet 10 mg PO DAILY 05/27/25 Unknown [facility] Allergy/AdvReac Type Severity Reaction Status Date / Time Sulfa (Sulfonamide Allergy Mild UNKNOWN Verified 05/27/25 19:23 Antibiotics) Social History Smoking Status: Never smoker ROS ROS ED Constitutional Constitutional ED: Denies chills, fever(s) or sweats ENT ENT ED: Denies sore throat Cardiovascular Cardiovascular: Reports palpitations and other Details: Lightheaded ; Denies chest pain, leg edema or racing heartbeat Respiratory/Chest Respiratory/Chest: Denies cough, dyspnea or dyspnea on exertion Gastrointestinal Gastrointestinal: Denies abdominal pain, diarrhea, nausea or vomiting Genitourinary Genitourinary ED: Denies dysuria, hematuria or urinary frequency Musculoskeletal Musculoskeletal: Denies back pain, extremity pain or neck pain Integumentary Denies rash or wounds Neurologic Neurologic: Denies headache(s), paresthesias or weakness EXAM Physical Exam Const Vital Signs: 05/27/25 19:23 05/27/25 21:30 05/27/25 22:00 Temperature 98.7 F Temperature Source Oral Pulse Rate 120 H 72 72 Respiratory Rate 24 H 22 H 18 Blood Pressure 197/91 H 185/75 H 166/78 H Blood Pressure Mean 126 111 107 Pulse Ox 99 100 99 Oxygen Delivery Method Room Air Room Air 05/27/25 23:09 05/27/25 23:09 Temperature 98.1 F 98.1 F Temperature Source Oral Pulse Rate 97 97 Respiratory Rate 16 16 Blood Pressure 166/78 H 166/78 H Blood Pressure Mean 107 107 Pulse Ox 99 98 Oxygen Delivery Method Room Air Positive well nourished and well developed General Appearance ED: well developed and NAD HEENT Reports dry mucous membranes normocephalic and atraumatic Mouth ED: Yes dry mucous membranes Mouth: dry mucous membranes Eyes General Eye ED: Yes normal appearance of both eyes Neck full ROM Chest Wall Chest: Negative for tenderness Resp normal respiratory effort and normal air movement Effort and Inspection: symmetric chest movement; Negative for respiratory distress Cardio regular rhythm and no murmurs Rate: tachycardic Peripheral Pulses: pulses 2+ throughout GI normal to inspection, nondistended, normoactive bowel sounds and non-tender Palpation: Negative for guarding or rebound tenderness present Extremity normal to inspection General Extremety ED: Negative for edema or tenderness General Extremity: Negative for edema Neuro oriented x3, CN's II-XII intact bilaterally and no sensory deficits noted Sensorium / Orientation: awake and alert Skin no rashes or lesions noted and no wounds MDM MDM MDM Narrative Medical decision making narrative: Interventions / MDM: Differential diagnosis: Accidental marijuana ingestion, near syncope, elevated blood pressure Diagnosis considered but do not suspect: No clinical hypertensive emergency. My EKG interpretation: Sinus rate of 90, no ST or T wave changes. QTc 457. Imaging independently reviewed and interpreted by myself: 1 view chest x-ray: No acute process. External documents reviewed: N/A Test considered but not ordered:N/A ED course: Presenting blood pressure 197/91 p (more content not included)... Normal [facility] Glomerular filtration rate ( GFR) estimation/1.73 sq m using serum, plasma, or whole bOrdered By: Edgar Doss on 05-27-2025 GFR/1.73 sq M.predicted among non-blacks MDRD (S/P/Bld) [Vol rate/Area] 85 mL/min/{1.73_m2} >60 [facility] Comment on above: mL/min/1.73m2 CKD-EP I Creatinine Equation (2020) Ketones Test strip Ql (U)Ord ered By: Edgar Doss on 05-27-2025 Ketones Ql (U) Negative Negative [facility] L501.4021on 05-27-2025 Trop T High Sen 8 ng/L Normal <=14 [facility] Comment on above: Performed By: #### L 500.2500, L501.4021 #### [facility] [place], [address] Performed By: #### L 400.0001 #### [facility] [address] [place], [address] Microscopic analysis of urin e for red blood cells (RBC)Ordered By: Edgar Doss on 05-27-2025 Microscopic analysis of urine for red blood cells (RBC) 0-5 SEEN /hpf 0-5 [facility] Mucus LM Ql (Urine sed)Order ed By: Edgar Doss on 05-27-2025 Mucus Ql (Urine sed) 0 SEEN /hpf [facility] Nitrite Test strip Ql (U)Ord ered By: Edgar Doss on 05-27-2025 Nitrite Ql (U) Negative Negative [facility] No Panel InformationOrdered By: Edgar Doss on 05-27-2025 Urine Buprenorphine Qualitative Negative < 200 ng/mL [facility] Urine Oxycodone Screen Negative < 100 ng/mL [facility] Potassium measurement (mass/ volume)Ordered By: Edgar Doss on 05-27-2025 Potassium (Unsp spec) [Mass/Vol] 3.4 mmol/L 3.3-5.1 [facility] Protein Test strip Ql (U)Ord ered By: Edgar Doss on 05-27-2025 Protein Ql (U) 30 mg/dl High Negative [facility] Quantitative urine opiates m easurementOrdered By: Edgar Doss on 05-27-2025 Opiates Ql (U) Negative < 300 ng/mL [facility] Screening urine fentanyl sathya surementOrdered By: Edgar Doss on 05-27-2025 fentaNYL Screen Ql (U) Negative [facility] Serum creatinine measurement (mass/volume)Ordered By: Edgar Doss on 05-27-2025 Creatinine [Mass/Vol] 0.80 mg/dL 0.70-1.20 [facility] Serum glucose measurement (m ass/volume)Ordered By: Edgar Doss on 05-27-2025 Glucose [Mass/Vol] 195 mg/dL High 70-99 [facility] Serum or plasma calcium pedro urement (mass/volume)Ordered By: Edgar Doss on 05-27-2025 Calcium [Mass/Vol] 9.3 mg/dL 7.6-11.0 [facility] Serum or plasma urea nitroge n measurement (mass/volume)Ordered By: Edgar Doss on 05-27-2025 Urea nitrogen [Mass/Vol] 15 mg/dL 4-19 [facility] Sodium levelOrdered By: Edgar Doss on 05-27-2025 Sodium [Moles/Vol] 136 mmol/L 133-145 [facility] Squamous epithelial cells de tection in urine sediment by light microscopyOrdered By: Edgar Doss on 05-27-2025 Epithelial cells.squamous LM Ql (Urine sed) 5-10 SEEN /hpf 5-10 [facility] Troponin T HS 2 HRon 025 Trop T High Sen 13 ng/L Normal <=14 [facility] Comment on above: Performed By: #### L 499.0042 #### [facility] [address] [place] [address] Performed By: #### L 400.0001 #### [facility] [address] [place] [address] Troponin T.cardiac [Mass/vol ume] in Serum or Plasma by High sensitivity methodOrdered By: Edgar Doss on 05-27-2025 Troponin T.cardiac High sensitivity method [Mass/Vol] 13 ng/L <14 [facility] Troponin T.cardiac High sensitivity method [Mass/Vol] 8 ng/L <14 [facility] Urinalysis, Completeon 05-27 EPI,SQUAMOUS 5-10 SEEN Normal 5-10 [facility] Comment on above: Order Comment: CLEAN CATCH Performed By: #### L 400.0001 #### [facility] [address] [facility] [address] RBC 0-5 SEEN Normal 0-5 [facility] Comment on above: Order Comment: CLEAN CATCH Performed By: #### L 400.0001 #### [facility] [address] [facility] [address] YEAST RARE Normal None Seen [facility] Comment on above: Order Comment: CLEAN CATCH Performed By: #### L 400.0001 #### [facility] [address] [place], [address] WBC 5-10 SEEN Normal 0-5 [facility] Comment on above: Order Comment: CLEAN CATCH Performed By: #### L 400.0001 #### [facility] [address] [place], [address] BACTERIA 0 SEEN Normal None Seen [facility] Comment on above: Order Comment: CLEAN CATCH Performed By: #### L 400.0001 #### [facility] [address] [place], [address] Mucus Ql (Urine sed) 0 SEEN Normal [facility] Comment on above: Order Comment: CLEAN CATCH Performed By: #### L 400.0001 #### [facility] [address] [place], [address] Urine Drug Screen (VISTA)on 05-27-2025 AMPHETAMINES Negative Normal <1000 ng/mL [facility] Comment on above: Performed By: #### L 505.5000 #### [facility] [address] [place], [address] Performed By: #### L 500.2500, L100.0500 #### [facility] [address] [place], [address] BARBITIURATES Negative Normal < 200 ng/mL [facility] Comment on above: Performed By: #### L 505.5000 #### [facility] [address] [place], [address] Performed By: #### L 500.2500, L100.0500 #### [facility] [address] [place], [address] BENZODIAZIPINE Negative Normal < 200 ng/mL [facility] Comment on above: Performed By: #### L 505.5000 #### [facility] [address] [place], [address] Performed By: #### L 500.2500, L100.0500 #### [facility] [address] [place], [address] BUP Ur Drug Scr Negative Normal < 200 ng/mL [facility] Comment on above: Performed By: #### L 505.5000 #### [facility] [address] [place], [address] Performed By: #### L 500.2500, L100.0500 #### [facility] [address] [place], [address] COCAINE Negative Normal < 300 ng/mL [facility] Comment on above: Performed By: #### L 505.5000 #### [facility] [address] [place], [address] Performed By: #### L 500.2500, L100.0500 #### [facility] [address] [place], [address] Fentanyl Negative Normal [facility] Comment on above: Performed By: #### L 505.5000 #### [facility] Laboratory [address] [place], [address] Performed By: #### L 500.2500, L100.0500 #### [facility] [address] [place], [address] METHADONE Negative Normal < 300 ng/mL [facility] Comment on above: Performed By: #### L 505.5000 #### [facility] [address] [place], [address] Performed By: #### L 500.2500, L100.0500 #### [facility] [address] [place], [address] OPIATES Negative Normal < 300 ng/mL [facility] Comment on above: Performed By: #### L 505.5000 #### [facility] [address] [place], [address] Performed By: #### L 500.2500, L100.0500 #### [facility] [address] [place], [address] OXYCODONE Negative Normal < 100 ng/mL [facility] Comment on above: Performed By: #### L 505.5000 #### [facility] [address] [place], [address] Performed By: #### L 500.2500, L100.0500 #### [facility] [address] [place], [address] PCP Negative Normal < 25 ng/mL [facility] Comment on above: Performed By: #### L 505.5000 #### [facility] [address] [place], [address] Performed By: #### L 500.2500, L100.0500 #### [facility] [address] [place], [address] THC Positive Normal < 50 ng/mL [facility] Comment on above: Result Comment: If c onfirmation testing is needed, a separate order will be required to send out testing to the reference laboratory. Performed By: #### L 505.5000 #### [facility] [place], [address] Performed By: #### L 500.2500, L100.0500 #### [facility] [address] [place], [address] Urine benzodiazepine levelOr dered By: Edgar Doss on 05-27-2025 Benzodiazepines Ql (U) Negative < 200 ng/mL [facility] Urine clarityOrdered By: Yvan Doss on 05-27-2025 Clarity (U) Cloudy Clear [facility] Urine cocaine levelOrdered B y: Edgar Doss on 05-27-2025 Cocaine Ql (U) Negative < 300 ng/mL [facility] Urine color determinationOrd ered By: Edgar Doss on 05-27-2025 Color (U) Straw Yellow [facility] Urine swcyo-2-jbbogauqkwltha abinol (THC) measurementOrdered By: Edgar Doss on 05-27-2025 Cannabinoids Screen Ql (U) Positive < 50 ng/mL [facility] Comment on above: If confirmation test ing is needed, a separate order will be required to send out testing to the reference laboratory. Urine glucose detectionOrder ed By: Edgar Doss on 05-27-2025 Glucose Ql (U) Normal mg/dl Normal [facility] Urine leukocyte esterase det ection by dipstickOrdered By: Edgar Doss on 05-27-2025 Leukocyte esterase Test strip Ql (U) 25 /ul High Negative [facility] Urine pHOrdered By: Edgar Doss on 05-27-2025 pH (U) 5.0 [pH] 5.0 - 8.0 [facility] Urine phencyclidine (PCP) de tectionOrdered By: Edgar Doss on 05-27-2025 Phencyclidine Ql (U) Negative < 25 ng/mL [facility] Urine sediment bacteria coun t by microscopy (number/high power field)Ordered By: Edgar Doss on 05-27-2025 Bacteria LM.HPF (Urine sed) [#/Area] 0 /[HPF] None Seen [facility] Urine sediment yeast count b y microscopy (number/high powered field)Ordered By: Edgar Doss on 05-27-2025 Yeast LM.HPF (Urine sed) [#/Area] RARE /hpf None Seen [facility] Urine specific gravity measu rementOrdered By: Edgar Doss on 05-27-2025 Specific gravity (U) [Rel density] 1.020 1.002-1.030 [facility] Urine urobilinogen measureme ntOrdered By: Edgar Doss on 05-27-2025 Urobilinogen Ql (U) Normal mg/dl Normal [facility] White blood cell countOrdere d By: Edgar Doss on 05-27-2025 White blood cell count 5-10 SEEN /hpf 0-5 [facility] CNPNon 03-19-2025 CNPN Telephone (SPAGBA) SUHAS ABURTO ([id number]) 1965 F Date Time Provider Department 03/19/25 JESSICA JUNE During your visit today, we recorded the following information about you: Shawanda Dai 03/19/2025 2:28 PM Signed LM re: scheduling EMG Upper Left Shawanda Dai Allergies As of Date: 03/19/2025 Noted Allergy Reaction ATORVASTATIN 03/31/2024 14 - Other: See Comments SULFA (SULFONAMIDE ANTIBIOTICS) 10/19/2006 Comments: itching, rash Date Reviewed: 03/16/2025 Reviewed by: Nora Robertson APRN.ACCELERATOR SYSTEMS DIRECTOR - Fully Assessed Reason for Visit: Appointment [186] Cmt: Scheduling Prescriptions as of 03/19/2025 - atenolol (TENORMIN) 25 mg tablet Take 1 tablet by mouth once daily. - Cholecalciferol, Vitamin D3, 25 mcg (1,000 unit) cap Take 1 capsule by mouth once daily. - FLUoxetine (PROZAC) 20 mg capsule Take 1 capsule by mouth once daily. - loratadine (ALLERGY RELIEF, LORATADINE,) 10 mg tablet Take 1 tablet by mouth once daily. - aspirin (ASPIR-81 ORAL) Take by mouth. - naproxen (NAPROSYN) 500 mg tablet Take 1 tablet by mouth two times a day as needed for pain (FOR PAIN - TAKE WITH FOOD.). Problem List As Of Date 03/19/2025 Noted Resolved INSOMNIA NOS [G47.00] 07/04/2007 Anxiety state, unspecified [F41.1] 07/04/2007 06/28/2016 Headache(784.0) [R51] 07/04/2007 06/28/2016 Essential hypertension [I10] 07/04/2007 Major depressive disorder, recurrent episode (H*08/19/2007 CHOLELITHIASIS NOS [K80.20] 07/13/2008 Acute gastritis without mention of hemorrhage [*10/04/2010 Dyspepsia and other specified disorders of func*10/04/2010 11/16/2015 ASCUS on Pap smear [OUF6012] 08/23/2011 Blood in stool [K92.1] 08/31/2011 03/24/2014 Anemia, unspecified [D64.9] 08/31/2011 06/28/2016 Iron deficiency anemia [D50.9] 09/28/2011 Neck pain [M54.2] 01/23/2013 06/28/2016 Cervicalgia [M54.2] 11/06/2013 Adjustment disorder with mixed anxiety and depr*12/29/2013 Psychic factors associated with diseases classi*12/29/2013 Sciatica [M54.30] 02/23/2015 Tension-type headache, not intractable [G44.209]01/27/2016 Abnormal mammogram [R92.8] 07/06/2017 Encounter Status:Closed by SHAWANDA DAI on 03/19/25 [facility] SUHAS ABURTO ([id number]) 1965 F Date Time Provider Department 03/16/25 CLARA MARIEE AGSPINE2 During your visit today, we recorded the following information about you: Ly Holt 03/16/2025 3:21 PM Signed Left message attempting to schedule Allergies As of Date: 03/16/2025 Noted Allergy Reaction ATORVASTATIN 03/31/2024 14 - Other: See Comments SULFA (SULFONAMIDE ANTIBIOTICS) 10/19/2006 Comments: itching, rash Date Reviewed: 02/24/2025 Reviewed by: Nora Robertson APRN.ACCELERATOR SYSTEMS DIRECTOR - Fully Assessed Reason for Visit: Appointment [186] Cmt: EMG Referral Prescriptions as of 03/16/2025 - atenolol (TENORMIN) 25 mg tablet Take 1 tablet by mouth once daily. - Cholecalciferol, Vitamin D3, 25 mcg (1,000 unit) cap Take 1 capsule by mouth once daily. - FLUoxetine (PROZAC) 20 mg capsule Take 1 capsule by mouth once daily. - loratadine (ALLERGY RELIEF, LORATADINE,) 10 mg tablet Take 1 tablet by mouth once daily. - aspirin (ASPIR-81 ORAL) Take by mouth. - naproxen (NAPROSYN) 500 mg tablet Take 1 tablet by mouth two times a day as needed for pain (FOR PAIN - TAKE WITH FOOD.). Problem List As Of Date 03/16/2025 Noted Resolved INSOMNIA NOS [G47.00] 07/04/2007 Anxiety state, unspecified [F41.1] 07/04/2007 06/28/2016 Headache(784.0) [R51] 07/04/2007 06/28/2016 Essential hypertension [I10] 07/04/2007 Major depressive disorder, recurrent episode (H*08/19/2007 CHOLELITHIASIS NOS [K80.20] 07/13/2008 Acute gastritis without mention of hemorrhage [*10/04/2010 Dyspepsia and other specified disorders of func*10/04/2010 11/16/2015 ASCUS on Pap smear [XOB3225] 08/23/2011 Blood in stool [K92.1] 08/31/2011 03/24/2014 Anemia, unspecified [D64.9] 08/31/2011 06/28/2016 Iron deficiency anemia [D50.9] 09/28/2011 Neck pain [M54.2] 01/23/2013 06/28/2016 Cervicalgia [M54.2] 11/06/2013 Adjustment disorder with mixed anxiety and depr*12/29/2013 Psychic factors associated with diseases classi*12/29/2013 Sciatica [M54.30] 02/23/2015 Tension-type headache, not intractable [G44.209]01/27/2016 Abnormal mammogram [R92.8] 07/06/2017 Encounter Status:Closed by LY HOLT on 03/16/25 Normal [facility] Comprehensive metabolic 2000 panelon 02-26-2025 Albumin [Mass/Vol] 4 g/dL 3.9 - 4.9 g/dL [facility] ALP [Catalytic activity/Vol] 75 U/L 34 - 123 U/L [facility] ALT [Catalytic activity/Vol] 18 U/L 7 - 38 U/L [facility] Anion gap [Moles/Vol] 11 mmol/L 8 - 15 mmol/L [facility] AST [Catalytic activity/Vol] 26 U/L 13 - 35 U/L [facility] Bilirubin [Mass/Vol] 0.3 mg/dL 0.2 - 1 .3 mg/dL [facility] Calcium [Mass/Vol] 9.3 mg/dL 8.5 - 10. 2 mg/dL [facility] Chloride [Moles/Vol] 104 mmol/L 98 - 10 7 mmol/L [facility] CO2 [Moles/Vol] 23 mmol/L 22 - 30 mmol/L [facility] Creatinine [Mass/Vol] 0.81 mg/dL 0.58 - 0.96 mg/dL [facility] GFR/1.73 sq M.predicted among non-blacks MDRD (S/P/Bld) [Vol rate/Area] 84 mL/min/{1.73_m2} - PINF [facility] Comment on above: Estimated Glomerular Filtration Rate (eGFR) is calculated using the 2020 CKD-EPI creatinine equation. This equation utilizes serum creatinine, sex, and age as parameters. The creatinine assay has traceable calibration to isotope dilution-mass spectrometry. Refer to KDIGO guidelines for clinical interpretation. In patients with unstable renal function, e.g. those with acute kidney injury, the eGFR may not accurately reflect actual GFR. Glucose [Mass/Vol] 88 mg/dL 74 - 99 mg/dL [facility] Comment on above: The [place] Diab[employer] s Association (ADA) provides guidance for cutoff values [...] Standards of Medical Care in Diabetes 2016, [place] [employer]. Diabetes Care. 2016.39(Suppl 1). Interpretation and review of laboratory results Normal [facility] Potassium [Moles/Vol] 4.5 mmol/L 3.7 - 5.1 mmol/L [facility] Protein [Mass/Vol] 7.3 g/dL 6.3 - 8.0 g/dL [facility] Sodium [Moles/Vol] 138 mmol/L 136 - 144 mmol/L [facility] Urea nitrogen [Mass/Vol] 14 mg/dL 7 - 21 mg/d L [facility] Lipid 1996 panelon 5 Cholesterol [Mass/Vol] 220 mg/dL High NINF - 200 mg/dL [facility] Comment on above: <200 mg/dL, Desirabl e 200-239 mg/dL, Borderline high >239 mg/dL, High Cholesterol in HDL [Mass/Vol] 42 mg/dL 39 - PINF mg/dL [facility] Comment on above: 40-59 mg/dL, Accepta ble >59 mg/dL, High: Negative risk factor for coronary heart disease <40 mg/dL, Low: Positive risk factor for coronary heart disease Cholesterol in LDL [Mass/Vol] 147 mg/dL High NINF - 100 mg/dL [facility] Comment on above: <100 mg/dL, Optimal 100-129 mg/dL, Near optimal/above optimal 130-159 mg/dL, Borderline high 160-189 mg/dL, High >189 mg/dL, Very high Secondary prevention optimal LDL Cholesterol levels are recommended to be <70 mg/dL LDL cholesterol is calculated using the Beyer-NIH equation. Cholesterol in LDL/Cholesterol in HDL [Mass ratio] 3.5 {ratio} High NINF - 2.54 [facility] Comment on above: Reference: 1. National Cholesterol Education Program ATP III Guideline At-A-Glance Quick Desk Reference: National Heart, Lung, and Blood [place]. National Institutes of Health. 2001: NIH Publication No. 01-3305. 2. An International Atherosclerosis Society position paper: global recommendations for the management of dyslipidemia: executive summary, Atherosclerosis. 2014: 232(2):410-413. Cholesterol in VLDL [Mass/Vol] 31 mg/dL High NINF - 30 mg/dL [facility] Cholesterol non HDL [Mass/Vol] 178 mg/dL High NINF - 130 mg/dL [facility] Comment on above: <130 mg/dL, Optimal 130-159 mg/dL, Near optimal/above optimal 160-189 mg/dL, Borderline high 190-219 mg/dL, High >219 mg/dL, Very high Secondary prevention optimal non HDL Cholesterol levels are recommended to be <100 mg/dL Cholesterol.total/Choles terol in HDL [Mass ratio] 5.24 {ratio} High NINF - 5.10 [facility] Fasting Time 12 hrs [facility] Interpretation and review of laboratory results Abnormal [facility] Triglyceride [Mass/Vol] 169 mg/dL High NINF - 150 mg/dL [facility] Comment on above: <150 mg/dL, Normal 150-199 mg/dL, Borderline high 200-499 mg/dL, High >499 mg/dL, Very high No Panel Informationon 02-26 Interpretation and review of laboratory results Normal [facility] TSH W/REFLEX FT4on TSH Qn 3.7 m[IU]/L [facility] VITAMIN B12on 02-26-2025 Cobalamin (Vitamin B12) [Mass/Vol] 412 pg/mL 232 - 1245 pg/mL [facility] 25(OH)D3 SerPl-mCncon 2024 25-hydroxyvitamin D3 [Mass/Vol] 45.3 ng/mL Normal 31.0-80.0 [facility] Comment on above: Order Comment: Speci men Type: BLOOD SPECIMEN Ordering Facility: [facility] Address: [address] [place] [address] Performed By: #### 1 989-3 #### [facility] CLIA [id number] [address] [place] [address] [place] 25-hydroxyvitamin D3 [Mass/V ol]on 02-25-2025 Interpretation and review of laboratory results Normal [facility] CBC W Auto Differential pane l (Bld)on 02-25-2025 Basophils (Bld) [#/Vol] 0.08 10*3/uL [facility] Basophils/100 WBC (Bld) 0.9 % [facility] Differential cell count method Nom (Bld) Auto [facility] Eosinophils (Bld) [#/Vol] 0.46 10*3/uL [facility] Eosinophils/100 WBC (Bld) 5.2 % [facility] Erythrocyte distribution width (RBC) [Ratio] 14 % 11.5 - 15.0 % [facility] Hematocrit (Bld) [Volume fraction] 36.8 % 36.0 - 46.0 % [facility] Hemoglobin (Bld) [Mass/Vol] 11.4 g/dL Low 11.5 - 15.5 g/dL [facility] Immature granulocytes (Bld) [#/Vol] 0.06 10*3/uL [facility] Immature granulocytes/100 WBC (Bld) 0.7 % [facility] Interpretation and review of laboratory results Abnormal [facility] Lymphocytes (Bld) [#/Vol] 3.39 10*3/uL [facility] Lymphocytes/100 WBC (Bld) 38.2 % [facility] MCH (RBC) [Entitic mass] 26.7 pg 26. 0 - 34.0 pg [facility] MCHC (RBC) [Mass/Vol] 31 g/dL 30.5 - 36.0 g/dL [facility] MCV (RBC) [Entitic vol] 86.2 fL 80.0 - 100.0 fL [facility] Monocytes (Bld) [#/Vol] 0.64 10*3/uL [facility] Monocytes/100 WBC (Bld) 7.2 % [facility] Neutrophils (Bld) [#/Vol] 4.25 10*3/uL [facility] Neutrophils/100 WBC (Bld) 47.8 % [facility] Nucleated RBC (Bld) [#/Vol] [facility] Nucleated RBC/100 WBC (Bld) [Ratio] 0 % /100 WBC [facility] Platelet mean volume (Bld) [Entitic vol] 9.5 fL 9.0 - 12.7 fL [facility] Platelets (Bld) [#/Vol] 397 10*3/uL [facility] RBC (Bld) [#/Vol] 4.27 10*6/uL 3.90 - 5.2 0 m/uL [facility] WBC (Bld) [#/Vol] 8.88 10*3/uL [facility] Basophils (Bld) [#/Vol] 0.08 10*3/uL Normal <0.11 [facility] Comment on above: Order Comment: Speci men Type: BLOOD SPECIMEN Ordering Facility: [facility] Address: [address] [place] [address] Performed By: #### 1 989-3 #### [facility] CLIA [id number] [address] [place] [address] [place] Basophils/100 WBC (Bld) 0.9 % Normal [facility] Comment on above: Order Comment: Speci men Type: BLOOD SPECIMEN Ordering Facility: [facility] Address: [address] [place] [address] Performed By: #### 1 989-3 #### [facility] CLIA [id number] [address] [place] [address] [place] Differential cell count method Nom (Bld) Auto Normal [facility] Comment on above: Order Comment: Speci men Type: BLOOD SPECIMEN Ordering Facility: [facility] Address: [address] [place] [address] Performed By: #### 1 989-3 #### [facility] CLIA [id number] [address] [place] [address] [place] Eosinophils (Bld) [#/Vol] 0.46 10*3/uL High <0.46 [facility] Comment on above: Order Comment: Speci men Type: BLOOD SPECIMEN Ordering Facility: [facility] Address: [address] [place] [address] Performed By: #### 1 989-3 #### [facility] CLIA [id number] [address] [place] [address] [place] Eosinophils/100 WBC (Bld) 5.2 % Normal [facility] Comment on above: Order Comment: Speci men Type: BLOOD SPECIMEN Ordering Facility: [facility] Address: [address] [place] [address] Performed By: #### 1 989-3 #### [facility] CLIA [id number] [address] [place] [address] [place] Erythrocyte distribution width (RBC) [Ratio] 14.0 % Normal 11.5-15.0 [facility] Comment on above: Order Comment: Speci men Type: BLOOD SPECIMEN Ordering Facility: [facility] Address: [address] [place] [address] Performed By: #### 1 989-3 #### [facility] CLIA [id number] [address] [place] [address] [place] Hematocrit (Bld) [Volume fraction] 36.8 % Normal 36.0-46.0 [facility] Comment on above: Order Comment: Speci men Type: BLOOD SPECIMEN Ordering Facility: [facility] Address: [address] [place] [address] Performed By: #### 1 989-3 #### [facility] CLIA [id number] [address] [place] [address] [place] Hemoglobin (Bld) [Mass/Vol] 11.4 g/dL Low 11.5-15.5 [facility] Comment on above: Order Comment: Speci men Type: BLOOD SPECIMEN Ordering Facility: [facility] Address: [address] [place] [address] Performed By: #### 1 989-3 #### [facility] CLIA [id number] [address] [place] [address] [place] Immature granulocytes (Bld) [#/Vol] 0.06 10*3/uL Normal <0.10 [facility] Comment on above: Order Comment: Speci men Type: BLOOD SPECIMEN Ordering Facility: [facility] Address: [address] [place] [address] Performed By: #### 1 989-3 #### [facility] CLIA [id number] [address] [place] [address] [place] Immature granulocytes/100 WBC (Bld) 0.7 % Normal [facility] Comment on above: Order Comment: Speci men Type: BLOOD SPECIMEN Ordering Facility: [facility] Address: [address] [place] [address] Performed By: #### 1 989-3 #### [facility] CLIA [id number] [address] [place] [address] [place] Lymphocytes (Bld) [#/Vol] 3.39 10*3/uL Normal 1.00-4.00 [facility] Comment on above: Order Comment: Speci men Type: BLOOD SPECIMEN Ordering Facility: [facility] Address: [address] [place] [address] Performed By: #### 1 989-3 #### [facility] CLIA [id number] [address] [place] [address] [place] Lymphocytes/100 WBC (Bld) 38.2 % Normal [facility] Comment on above: Order Comment: Speci men Type: BLOOD SPECIMEN Ordering Facility: [facility] Address: [address] [place] [address] Performed By: #### 1 989-3 #### [facility] CLIA [id number] [address] [place] [address] [place] MCH (RBC) [Entitic mass] 26.7 pg Normal 26.0-34.0 [facility] Comment on above: Order Comment: Speci men Type: BLOOD SPECIMEN Ordering Facility: [facility] Address: [address] [place] [address] Performed By: #### 1 989-3 #### [facility] CLIA [id number] [address] [place] [address] [place] MCHC (RBC) [Mass/Vol] 31.0 g/dL Normal 30.5-36.0 [facility] Comment on above: Order Comment: Speci men Type: BLOOD SPECIMEN Ordering Facility: [facility] Address: [address] [place] [address] Performed By: #### 1 989-3 #### [facility] CLIA [id number] [address] [place] [address] [place] MCV (RBC) [Entitic vol] 86.2 fL Normal 80.0-100.[address] [facility] Comment on above: Order Comment: Speci men Type: BLOOD SPECIMEN Ordering Facility: [facility] Address: [address] [place] [address] Performed By: #### 1 989-3 #### [facility] CLIA [id number] [address] [place] [address] [place] Monocytes (Bld) [#/Vol] 0.64 10*3/uL Normal <0.87 [facility] Comment on above: Order Comment: Speci men Type: BLOOD SPECIMEN Ordering Facility: [facility] Address: [address] [place] [address] Performed By: #### 1 989-3 #### [facility] CLIA [id number] [address] [place] [address] [place] Monocytes/100 WBC (Bld) 7.2 % Normal [facility] Comment on above: Order Comment: Speci men Type: BLOOD SPECIMEN Ordering Facility: [facility] Address: [address] [place] [address] Performed By: #### 1 989-3 #### [facility] CLIA [id number] [address] [place] [address] [place] Neutrophils (Bld) [#/Vol] 4.25 10*3/uL Normal 1.45-7.50 [facility] Comment on above: Order Comment: Speci men Type: BLOOD SPECIMEN Ordering Facility: [facility] Address: [address] [place] [address] Performed By: #### 1 989-3 #### [facility] CLIA [id number] [address] [place] [address] [place] Neutrophils/100 WBC (Bld) 47.8 % Normal [facility] Comment on above: Order Comment: Speci men Type: BLOOD SPECIMEN Ordering Facility: [facility] Address: [address] [place] [address] Performed By: #### 1 989-3 #### [facility] CLIA [id number] [address] [place] [address] [place] Nucleated RBC (Bld) [#/Vol] 10*3/uL Normal <0.01 [facility] Comment on above: Order Comment: Speci men Type: BLOOD SPECIMEN Ordering Facility: [facility] Address: [address] [place] [address] Performed By: #### 1 989-3 #### [facility] CLIA [id number] [address] [place] [address] [place] Nucleated RBC/100 WBC (Bld) [Ratio] 0.0 /100 WBC Normal [facility] Comment on above: Order Comment: Speci men Type: BLOOD SPECIMEN Ordering Facility: [facility] Address: [address] [place] [address] Performed By: #### 1 989-3 #### [facility] CLIA [id number] [address] [place] [address] [place] Platelet mean volume (Bld) [Entitic vol] 9.5 fL Normal 9.0-12.7 [facility] Comment on above: Order Comment: Speci men Type: BLOOD SPECIMEN Ordering Facility: [facility] Address: [address] [place] [address] Performed By: #### 1 989-3 #### [facility] CLIA [id number] [address] [place] [address] [place] Platelets (Bld) [#/Vol] 397 10*3/uL Normal 150-400 [facility] Comment on above: Order Comment: Speci men Type: BLOOD SPECIMEN Ordering Facility: [facility] Address: [address] [place] [address] Performed By: #### 1 989-3 #### [facility] CLIA [id number] [address] [place] [address] [place] RBC (Bld) [#/Vol] 4.27 10*6/uL Normal 3.90-5.20 [facility] Comment on above: Order Comment: Speci men Type: BLOOD SPECIMEN Ordering Facility: [facility] Address: [address] [place] [address] Performed By: #### 1 989-3 #### [facility] CLIA [id number] [address] [place] [address] [place] WBC (Bld) [#/Vol] 8.88 10*3/uL Normal 3.70-11.00 [facility] Comment on above: Order Comment: Speci men Type: BLOOD SPECIMEN Ordering Facility: [facility] Address: [address] [place] [address] Performed By: #### 1 989-3 #### [facility] CLIA [id number] [address] [place] [address] [place] Comprehensive metabolic 2000 panelon 02-25-2025 Albumin [Mass/Vol] 4.0 g/dL Normal 3.9-4.9 [facility] Comment on above: Order Comment: Speci men Type: BLOOD SPECIMEN Ordering Facility: [facility] Address: [address] [place] [address] Performed By: #### T BUTCH, 92100-9, , 2132-06 #### [facility] CLIA [id number] [address] [place] [address] [place] ALP [Catalytic activity/Vol] 75 U/L Normal 34-123 [facility] Comment on above: Order Comment: Speci men Type: BLOOD SPECIMEN Ordering Facility: [facility] Address: [address] [place] [address] Performed By: #### T BUTCH, 75422-3, , 2132-06 #### [facility] CLIA [id number] [address] [place] [address] [place] ALT [Catalytic activity/Vol] 18 U/L Normal 7-38 [facility] Comment on above: Order Comment: Speci men Type: BLOOD SPECIMEN Ordering Facility: [facility] Address: [address] [place] [address] Performed By: #### Say RAE, 31864-8, , 2132-06 #### [facility] CLIA [id number] [address] [place], [place] [address] [place] Anion gap [Moles/Vol] 11 mmol/L Normal 8-15 [facility] Comment on above: Order Comment: Speci men Type: BLOOD SPECIMEN Ordering Facility: [facility] Address: [address] [place] [address] Performed By: #### T BUTCH, 95465-1, , 2132-06 #### [facility] CLIA [id number] [address] [place], [place] [address] [place] AST [Catalytic activity/Vol] 26 U/L Normal 13-35 [facility] Comment on above: Order Comment: Speci men Type: BLOOD SPECIMEN Ordering Facility: [facility] Address: [address] [place] [address] Performed By: #### T BUTCH, 36539-9, , 2132-06 #### [facility] CLIA [id number] [address] [place] [address] [place] Bilirubin [Mass/Vol] 0.3 mg/dL Normal 0.2-1.[address] [facility] Comment on above: Order Comment: Speci men Type: BLOOD SPECIMEN Ordering Facility: [facility] Address: [address] [place] [address] Performed By: #### T BUTCH, 11604-5, , 2132-06 #### [facility] CLIA [id number] [address] [place] [address] [place] Calcium [Mass/Vol] 9.3 mg/dL Normal 8.5-10.2 [facility] Comment on above: Order Comment: Speci men Type: BLOOD SPECIMEN Ordering Facility: [facility] Address: [address] [place] [address] Performed By: #### T BUTCH, 80686-5, , 2132-06 #### [facility] CLIA [id number] [address] [place], [place] [address] [place] Chloride [Moles/Vol] 104 mmol/L Normal 98-[address] [facility] Comment on above: Order Comment: Speci men Type: BLOOD SPECIMEN Ordering Facility: [facility] Address: [address] [place] [address] Performed By: #### T BUTCH, 64989-1, , 2132-06 #### [facility] CLIA [id number] [address] [place], [place] [address] [place] CO2 [Moles/Vol] 23 mmol/L Normal 22-30 [facility] Comment on above: Order Comment: Speci men Type: BLOOD SPECIMEN Ordering Facility: [facility] Address: [address] [place], [place] [address] Performed By: #### T BUTCH, 34894-9, , 2132-06 #### [facility] CLIA [id number] [address] [place] [address] [place] Creatinine [Mass/Vol] 0.81 mg/dL Normal 0.58-0.96 [facility] Comment on above: Order Comment: Speci men Type: BLOOD SPECIMEN Ordering Facility: [facility] Address: [address] [place], [place] [address] Performed By: #### T BUTCH, 72001-2, , 2132-06 #### [facility] CLIA [id number] [address] [place] [address] [place] Creatinine and Glomerular filtration rate.predicted panel (S/P/Bld) 84 mL/min/1.73m??? Normal >=60 [facility] Comment on above: Order Comment: Avery luevano Type: BLOOD SPECIMEN Ordering Facility: [facility] Address: [address] [place] [address] Result Comment: Violet mated Glomerular Filtration Rate [...] accurately reflect actual GFR. Performed By: #### [facility], 87723-2, , 2132-06 #### [facility] CLIA [id number] [address] [place] [address] [place] Glucose [Mass/Vol] 88 mg/dL Normal 74-99 [facility] Comment on above: Order Comment: Avery luevano Type: BLOOD SPECIMEN Ordering Facility: [facility] Address: [address] [place] [address] Result Comment: The [place] Diabetes Association (ADA) provides guidance for cutoff [...] Standards of Medical Care in Diabetes 2016, [place] [employer] Association. Diabetes Care. 2016.39(Suppl 1). Performed By: #### [facility], 45698-4, , 2132-06 #### [facility] CLIA [id number] [address] [place], [place] [address] [place] Potassium [Moles/Vol] 4.5 mmol/L Normal 3.7-5.1 [facility] Comment on above: Order Comment: Speci men Type: BLOOD SPECIMEN Ordering Facility: [facility] Address: [address] [place] [address] Performed By: #### T BUTCH, 77703-7, , 2132-06 #### [facility] CLIA [id number] [address] [place] [address] [place] Protein [Mass/Vol] 7.3 g/dL Normal 6.3-8.0 [facility] Comment on above: Order Comment: Speci men Type: BLOOD SPECIMEN Ordering Facility: [facility] Address: [address] [place] [address] Performed By: #### T BUTCH, 87375-7, , 2132-06 #### [facility] CLIA [id number] [address] [place], [place] [address] [place] Sodium [Moles/Vol] 138 mmol/L Normal 136-144 [facility] Comment on above: Order Comment: Speci men Type: BLOOD SPECIMEN Ordering Facility: [facility] Address: [address] [place] [address] Performed By: #### T BUTCH, 09568-0, , 2132-06 #### [facility] CLIA [id number] [address] [place], [place] [address] [place] Urea nitrogen [Mass/Vol] 14 mg/dL Normal 7-21 [facility] Comment on above: Order Comment: Speci men Type: BLOOD SPECIMEN Ordering Facility: [facility] Address: [address] [place] [address] Performed By: #### T BUTCH, 12165-9, , 2132-06 #### [facility] CLIA [id number] [address] [place] [address] [place] HbA1c (Bld)on 02-25-2025 Average glucose Estimated from glycated hemoglobin (Bld) [Mass/Vol] 120 mg/dL [facility] Comment on above: eAG: (Estimated aver age glucose) is a calculated value from HgbA1c and is in home sales representative of the average blood glucose level in the last 2-3 month period. HbA1c (Bld) [Mass fraction] 5.8 % High 4.3 - 5.6 % [facility] Comment on above: [place] Diabetes As sociation guidelines indicate that patients with HgbA1c in the range 5.7-6.4% are at increased risk for development of diabetes, and intervention by lifestyle modification may be beneficial. HgbA1c greater or equal to 6.5% is considered diagnostic of diabetes. Interpretation and review of laboratory results Abnormal [facility] Average glucose Estimated from glycated hemoglobin (Bld) [Mass/Vol] 120 mg/dL Normal [facility] Comment on above: Order Comment: Avery luevano Type: BLOOD SPECIMEN Ordering Facility: [facility] Address: [address] [place] [address] Result Comment: eAG: (Estimated average glucose) is a calculated value from HgbA1c and is in home sales representative of the average blood glucose level in the last 2-3 month period. Performed By: #### 5 5454-3 #### [facility] CLIA [id number] [address] [place] [address] [place] HbA1c (Bld) [Mass fraction] 5.8 % High 4.3-5.6 [facility] Comment on above: Order Comment: Avery luevano Type: BLOOD SPECIMEN Ordering Facility: [facility] Address: [address] [place] [address] Result Comment: [place] Diabetes Association guidelines indicate that patients with HgbA1c in the range 5.7-6.4% are at increased risk for development of diabetes, and intervention by lifestyle modification may be beneficial. HgbA1c greater or equal to 6.5% is considered diagnostic of diabetes. Performed By: #### 5 5454-3 #### [facility] CLIA [id number] [address] [place] [address] OF [facility] Lipid 1996 panelon 5 Cholesterol [Mass/Vol] 220 mg/dL High <200 [facility] Comment on above: Order Comment: Avery luevano Type: BLOOD SPECIMEN Ordering Facility: [facility] Address: [address] [place] [address] Result Comment: <200 mg/dL, Desirable 200-239 mg/dL, Borderline high >239 mg/dL, High Performed By: #### T BUTCH, 31135-0, , 2132-06 #### [facility] CLIA [id number] [address] [place] [address] [place] Cholesterol in HDL [Mass/Vol] 42 mg/dL Normal >39 [facility] Comment on above: Order Comment: Avery luevano Type: BLOOD SPECIMEN Ordering Facility: [facility] Address: [address] [place] [address] Result Comment: 40-5 9 mg/dL, Acceptable >59 mg/dL, High: Negative risk factor for coronary heart disease <40 mg/dL, Low: Positive risk factor for coronary heart disease Performed By: #### T BUTCH, 55018-1, , 2132-06 #### [facility] CLIA [id number] [address] [place] [address] Cholesterol in LDL [Mass/Vol] 147 mg/dL High <100 [facility] Comment on above: Order Comment: Speci men Type: BLOOD SPECIMEN Ordering Facility: [facility] Address: [address] [place] [address] Result Comment: <100 mg/dL, Optimal 100-129 mg/dL, Near optimal/above optimal 130-159 mg/dL, Borderline high 160-189 mg/dL, High >189 mg/dL, Very high Secondary prevention optimal LDL Cholesterol levels are recommended to be <70 mg/dL LDL cholesterol is calculated using the Beyer-NIH equation. Performed By: #### T BUTCH, 08878-0, , 2132-06 #### [facility] CLIA [id number] [address] [place] [address] [place] Cholesterol in LDL/Cholesterol in HDL [Mass ratio] 3.50 {ratio} High <2.54 [facility] Comment on above: Order Comment: Avery luevano Type: BLOOD SPECIMEN Ordering Facility: [facility] Address: [address] [place] [address] Result Comment: Refe rence: 1. National Cholesterol Education Program ATP III Guideline At-A-Glance Quick Desk Reference: National Heart, Lung, and Blood [place]. National Institutes of Health. 2001: NIH Publication No. 01-3305. 2. An International Atherosclerosis Society position paper: global recommendations for the management of dyslipidemia: executive summary, Atherosclerosis. 2014: 232(2):410-413. Performed By: #### T BUTCH, 50611-2, , 2132-06 #### [facility] CLIA [id number] [address] [place] [address] [place] Cholesterol in VLDL [Mass/Vol] 31 mg/dL High <30 [facility] Comment on above: Order Comment: Avery luevano Type: BLOOD SPECIMEN Ordering Facility: [facility] Address: [address] [place] [address] Performed By: #### T BUTCH, 11357-9, , 2132-06 #### [facility] CLIA [id number] [address] [place] [address] [place] Cholesterol non HDL [Mass/Vol] 178 mg/dL High <130 [facility] Comment on above: Order Comment: Aevry luevano Type: BLOOD SPECIMEN Ordering Facility: [facility] Address: [address] [place] [address] Result Comment: <130 mg/dL, Optimal 130-159 mg/dL, Near optimal/above optimal 160-189 mg/dL, Borderline high 190-219 mg/dL, High >219 mg/dL, Very high Secondary prevention optimal non HDL Cholesterol levels are recommended to be <100 mg/dL Performed By: #### T BUTCH, 56178-4, , 2132-06 #### [facility] CLIA [id number] [address] [place] [address] [place] Cholesterol.total/Choles terol in HDL [Mass ratio] 5.24 {ratio} High <5.10 [facility] Comment on above: Order Comment: Speci men Type: BLOOD SPECIMEN Ordering Facility: [facility] Address: [address] [place] [address] Performed By: #### T BUTCH, 76445-9, , 2132-06 #### [facility] CLIA [id number] [address] [place] [address] [place] FASTING TIME 12 hrs Normal [facility] Comment on above: Order Comment: Speci men Type: BLOOD SPECIMEN Ordering Facility[facility] Address: [address] [place] [address] Performed By: #### Say RAE, 84552-4, , 2132-06 #### [facility] CLIA [id number] [address] [place], [place] [address] [place] Triglyceride [Mass/Vol] 169 mg/dL High <150 [facility] Comment on above: Order Comment: Speci men Type: BLOOD SPECIMEN Ordering Facility: [facility] Address: [address] [place] [address] Result Comment: <150 mg/dL, Normal 150-199 mg/dL, Borderline high 200-499 mg/dL, High >499 mg/dL, Very high Performed By: #### T BUTCH, 44728-2, , 2132-06 #### [facility] CLIA [id number] [address] [place], [place] [address] [place] TSH W/REFLEX FT4on 5 TSH Qn 3.700 m[IU]/L Normal 0.270-4.200 [facility] Comment on above: Order Comment: Speci men Type: BLOOD SPECIMEN Ordering Facility: [facility] Address: [address] [place] [address] Performed By: #### [facility], 71783-8, 23585-0, 9 #### [facility] CLIA [id number] [address] [place] [address] [place] VITAMIN D 25 HYDROXYon 02-25 25-hydroxyvitamin D3 [Mass/Vol] 45.3 ng/mL 31.0 - 80.0 ng/mL [facility] Vit B12 SerPl-mCncon 025 Cobalamin (Vitamin B12) [Mass/Vol] 412 pg/mL Normal 232-1245 [facility] Comment on above: Order Comment: Speci men Type: BLOOD SPECIMEN Ordering Facility[facility] Address: [address] [place] [address] [place] [address] Performed By: #### T [facility], 05125-2, 17325-8, 9 #### [facility] CLIA [id number] [address] [place] [address] [place] CNOVon 02-24-2025 CNOV Office Visit (AGFAMPLE) SUHAS ABURTO ([id number]) 1965 F Date Time Provider Department 02/24/25 2:00 PM NORA ROBERTSON During your visit today, we recorded the following information about you: Temperature Pulse Respiration Blood pressure 98 degrees 63/minute 18/minute 132/80 Weight Height 62.1 kg 1.524 m Nora Robertson, HORIZONTAL BORING MILL OPERATOR.ACCELERATOR SYSTEMS DIRECTOR 03/01/2025 2:23 PM Signed CHIEF COMPLAINT: Suhas is a 59-year-old female presenting for medication refills, with additional complaints of foot pain and hand numbness. I reviewed past medical, surgical, social, and family histories today and updated chart. Allergies, chronic medications, and supplements were also reviewed. Recording using CRV software for draft documentation of the visit was discussed with the patient/authorized in home sales representative; all questions welcomed and answered. Patient/authorized in home sales representative agreed to proceed Medication Refills: - Out of refills for vitamin D, atenolol, Prozac, and Claritin. Foot Pain: - Recent foot pain after pulling weeds; described as knots in the feet. - Pain has resolved; x-ray at [facility] showed no fractures. - Difficulty putting pressure on the foot; used Tylenol, [place], and ice packs for relief. - Denies known trauma or injury. Hand Numbness: - Numbness and tingling in the hand since a fall on 09/06 of last year. - Denies x-rays of the wrist. - Symptoms worsen at night and when tying a turban. - Relieves symptoms by shaking the hand. - Denies neck pain or weakness in the hand. - No other neurological symptoms reported. PAST MEDICAL HISTORY Diagnosis Date Dyspepsia and other specified disorders of function of stomach Essential hypertension, benign PAST SURGICAL HISTORY Procedure Laterality Date DELIVERY ONLY , low cervical COLONOSCOPY FLX DX W/COLLJ SPEC WHEN PFRMD 08/31/2011 Colonoscopy/repeat in EGD TRANSORAL BIOPSY SINGLE/MULTIPLE 10/04/10 ESOPHAGOGASTRODUODENO SCOPY TRANSORAL DIAGNOSTIC 08/31/2011 EGD Social History Tobacco Use Smoking status: Never Smokeless tobacco: Never Vaping Use Vaping status: Never Used Substance Use Topics Alcohol use: Never Drug use: Never ALLERGIES Allergen Reactions Atorvastatin Other: See Comments Sulfa (Sulfonamide * itching, rash Family History Problem Relation Age of Onset Cancer Mother throat Heart Brother [place] Diabetes Brother Coronary Artery Disease Brother [place] Current Outpatient Medications Medication Sig Dispense Refill aspirin (ASPIR-81 ORAL) Take by mouth. atenolol (TENORMIN) 25 mg tablet Take 1 tablet by mouth once daily. 90 tablet 1 Cholecalciferol, Vitamin D3, 25 mcg (1,000 unit) cap Take 1 capsule by mouth once daily. 90 capsule 1 FLUoxetine (PROZAC) 20 mg capsule Take 1 capsule by mouth once daily. 90 capsule 1 loratadine (ALLERGY RELIEF, LORATADINE,) 10 mg tablet Take 1 tablet by mouth once daily. 90 tablet 1 naproxen (NAPROSYN) 500 mg tablet Take 1 tablet by mouth two times a day as needed for pain (FOR PAIN - TAKE WITH FOOD.). (Patient not taking: Reported on 11/12/2024) 60 tablet 0 No current facility-administered medications for this visit. Review of Systems Neck: (-) neck pain Musculoskeletal: (+) foot pain (intermittent) Neurological: (+) hand numbness, tingling, (-) weakness Skin: (+) bruising BP 132/80 Pulse 63 Temp (Src) 98 (Oral) Resp 18 Ht 5' 0 (1.52m) Wt 137 lb (62.1kg) SpO2 99% LMP 04/26/2017 BMI 26.76 kg/(m2). Physical Exam Vitals and nursing note reviewed. Constitutional: Appearance: Normal appearance. HENT: Mouth/Throat: Mouth: Mucous membranes are moist. Pharynx: Oropharynx is clear. Eyes: Pupils: Pupils are equal, round, and reactive to light. Cardiovascular: Rate and Rhythm: Normal rate and regular rhythm. Pulses: Normal pulses. Heart sounds: Normal heart sounds. Pulmonary: Effort: Pulmonary effort is normal. Breath sounds: Normal breath sounds. Abdominal: General: Bowel sounds are normal. Palpations: Abdomen is soft. Musculoskeletal: Right hand: No swelling or tenderness. Normal range of motion. Normal strength. There is no disruption of two-point discrimination. Normal capillary refill. Left hand: No swelling or tenderness. Normal range of motion. Normal strength. There is no disruption of two-point discrimination. Normal capillary refill. Cervical back: Normal range of motion and neck supple. Right foot: Normal range of motion and normal capillary refill. No swelling, bony tenderness or crepitus. Skin: General: Skin is warm and dry. Findings: No bruising or erythema. Neurological: Mental Status: She is alert and oriented to person, place, and time. Cranial Nerves: Cranial nerves 2-12 are intact. Sensory: Sensation is intact. Gait: Gait is intact. Psychi (more content not included)... Normal [facility] CNOVon 02-18-2025 CN Office Visit (UCWSTR ) SUHAS ABURTO ([id number]) 1965 F Date Time Provider Department 02/18/25 3:45 PM JULISSA SOTO [facility] During your visit today, we recorded the following information about you: Temperature Pulse Respiration Blood pressure 97.1 degrees 64/minute 18/minute 128/80 Weight 62.2 kg Julissa Soto PA 02/18/2025 4:28 PM Signed [facility] Subjective Suhas Aburto is a 59 year old female. Patient presents with: right foot pain: X 1 day-not sure what she did thinks she may have twisted it HPI 59-year-old female presents for right foot pain. Patient states that she was doing gardening yesterday may have twisted her right foot. Does not recall specific injury. She is having pain over the dorsum of the right foot since yesterday. She noticed a small bump on the foot as well, unsure how long this has been here. No numbness or tingling. Still able to walk. Has taken Tylenol Motrin with minimal improvement Review of Systems Constitutional: Negative for chills and fever. Musculoskeletal: Positive for arthralgias (R foot). Neurological: Negative for numbness. Objective BP 128/80 Pulse 64 Temp 36.2 ?C (97.1 ?F) (Tympanic) Resp 18 Wt 62.2 kg (137 lb 2 oz) LMP 04/26/2017 SpO2 96% BMI 26.78 kg/m? Physical Exam Vitals and nursing note reviewed. Constitutional: General: She is not in acute distress. Appearance: Normal appearance. She is not toxic-appearing. HENT: Mouth/Throat: Mouth: Mucous membranes are moist. Musculoskeletal: Right foot: Normal capillary refill. Tenderness and bony tenderness present. No swelling. Normal pulse. Comments: Patient has tenderness over right dorsal foot. Mainly tender over 4th and 5th mid metatarsals. She does have a slightly small raised hard bump/deformity over dorsum of right foot. Feels like a bony prominence. Normal sensation all toes. Nontender toes. Normal ROM of ankle. Nontender ankle. DP and PT pulses 2+ Skin: General: Skin is warm and dry. Neurological: Mental Status: She is alert. {ASSESSMENT/PLAN: 1. Foot pain, right - ICD9: 729.5, ICD10: M79.671 - XR FOOT GENERAL 3V AP/LAT/OBL RIGHT- There is mild narrowing of all interphalangeal joints. Small anterior and large posterior heel spurs. There is a high longitudinal arch of the foot. No fractures or dislocations are seen. - RICE - Follow-up with PCP if no improvement in 1 week Diagnosis and treatment plan were discussed and questions were answered to the patient's satisfaction. Pt acknowledged understanding of concepts and follow up plan. Specific signs and symptoms that would indicate the need for higher level of care were discussed in detail warranting prompt ER evaluation. PRINCE Colón History and Record Review External record(s) reviewed: prior outpatient record. Differential Diagnoses - Right foot injury is more likely for the following reason(s): suggested by HANDP - Fracture or dislocation is less likely for the following reason(s): HANDP not suggestive and no evidence on imaging Disposition The patient was discharged. OTC Medications were advised: Tylenol/Motrin Procedures Julissa Soto PA 02/18/2025 4:23 PM Signed [facility].I.C.E. The general care of your injury includes the following: Resting, Icing, Compressing and Elevating the injured area. Remember this as RICE. REST: Limit the use of the injured body part. ICE: By applying ice to the affected area, swelling and pain can be reduced. Place some ice cubes in a re-sealable (Ziploc) bag and add some water. Put a thin washcloth between the bag and your skin. Apply the ice bag to the area for at least 20 minutes. Do this at least 4 times per day. Using the ice for longer times and more frequently is OK. NEVER APPLY ICE DIRECTLY TO THE SKIN. COMPRESS: Compression means to apply pressure around the injured area such as with a splint, cast or an maryjo bandage. Compression decreases swelling and improves comfort. Compression should be tight enough to relieve swelling but not so tight as to decrease circulation. Increasing pain, numbness, tingling, or change in skin color, are all signs of decreased circulation. ELEVATE: Elevate the injured part. For example, elevate your foot by placing it on a chair while sitting, or propping it up on pillows when lying down. Allergies As of Date: 02/18/2025 Noted Allergy Reaction ATORVASTATIN 03/31/2024 14 - Other: See Comments SULFA (SULFONAMIDE ANTIBIOTICS) 10/19/2006 Comments: itching, rash Date Reviewed: 11/12/2024 Reviewed by: Varsha Mendoza MA - Fully Assessed Reason for Visit: right foot pain [Other] Cmt: X 1 day-not sure what she did thinks she may have twisted it Primary Visit Diagnosis:Foot pain, right [M79.671] Order(s):XR FOOT GENERAL 3V AP/LAT/OBL RIGHT [[id number]] Order #: [id number] [facility] Pres (more content not included)... Normal [facility] XR FOOT 3V AP/LAT/OBL RTon 0 02-18-2025 XR FOOT 3V AP/LAT/OBL RT * * *Final Repo rt* * * DATE OF EXAM: Feb 18 2025 4:03PM WOX [id number] - XR FOOT 3V AP/LAT/OBL RT / PROCEDURE REASON: Foot pain, right * * * * Physician Interpretation * * * * EXAM(s): XR FOOT 3V AP/LAT/OBL RT..... HISTORY: 59 years old Clinical information: Foot pain, right was in garden yesterday and twisted foot pain in porx. 5th MT TECHNIQUE: Images: XR FOOT 3V AP/LAT/OBL RT Comparison: None. RESULT: Findings: There is mild narrowing of all interphalangeal joints. Small anterior and large posterior heel spurs. There is a high longitudinal arch of the foot. No fractures or dislocations are seen. IMPRESSION: Findings as discussed in results portion of report Trestle Mainternance Laborer: ODALISB Transcribe Date/Time: Feb 18 2025 4:10P Dictated by : CAMPOS GUEVARA DO This examination was interpreted and the report reviewed and electronically signed by: CAMPOS GUEVARA DO on Feb 18 2025 4:13PM EST [id number] Normal [facility] XR Foot - right AP and Later al and obliqueon 02-18-2025 IMPRESSION: Findings as discussed in results portion of report Trestle Mainternance Laborer: MARYLU Transcribe Date/Time: Feb 18 2025 4:10P Dictated by : CAMPOS GUEVARA DO This examination was interpreted and the report reviewed and electronically signed by: CAMPOS GUEVARA DO on Feb 18 2025 4:13PM [facility] DIVISION OF RADIOLOGY * * *Final Report* * * DATE OF EXAM: Feb 18 2025 4:03PM WOX [id number] - XR FOOT 3V AP/LAT/OBL RT / PROCEDURE REASON: Foot pain, right * * * * Physician Interpretation * * * * EXAM(s): XR FOOT 3V AP/LAT/OBL RT..... HISTORY: 59 years old Clinical information: Foot pain, right was in garden yesterday and twisted foot pain in porx. 5th MT TECHNIQUE: Images: XR FOOT 3V AP/LAT/OBL RT Comparison: None. RESULT: Findings: There is mild narrowing of all interphalangeal joints. Small anterior and large posterior heel spurs. There is a high longitudinal arch of the foot. No fractures or dislocations are seen. DIVISION OF RADIOLOGY Provider, [facility] - 02/18/2025 * * *Final Report* * * DATE OF EXAM: Feb 18 2025 4:03PM WOX [id number] - XR FOOT 3V AP/LAT/OBL RT / PROCEDURE REASON: Foot pain, right * * * * Physician Interpretation * * * * EXAM(s): XR FOOT 3V AP/LAT/OBL RT..... HISTORY: 59 years old Clinical information: Foot pain, right was in garden yesterday and twisted foot pain in porx. 5th MT TECHNIQUE: Images: XR FOOT 3V AP/LAT/OBL RT Comparison: None. RESULT: Findings: There is mild narrowing of all interphalangeal joints. Small anterior and large posterior heel spurs. There is a high longitudinal arch of the foot. No fractures or dislocations are seen. IMPRESSION IMPRESSION: Findings as discussed in results portion of report Trest[employer] Mainternance Laborer: MARYLU Transcribe Date/Time: Feb 18 2025 4:10P Dictated by : CAMPOS GUEVARA DO This examination was interpreted and the report reviewed and electronically signed by: CAMPOS GUEVARA DO on Feb 18 2025 4:13PM EST [facility] Radiology Study observation (narrative) [facility] X[facility] Foot - right AP and Later al and obliqueOrdered By: Ccf Provider on 02-18-2025 [facility] Nidhi 11-14-2024 CNPN Telephone (UCWSTR) SUHAS ABURTO ([id number]) 1965 F Date Time Provider Department 11/14/24 MONIQUE TORO [facility] During your visit today, we recorded the following information about you: Sole Love OCCA 11/14/2024 4:22 PM Signed ----- Message from Monique Toro APRN.ACCELERATOR SYSTEMS DIRECTOR sent at 11/14/2024 2:45 PM EST ----- Please inform patient that the urine culture did show infection. The antibiotic that was prescribed is appropriate. They should continue to take the antibiotic as directed and follow-up with their PCP. Sole Love OCCA 11/14/2024 4:23 PM Signed TC no answer. Left VM to return call. NAVID Agustin M Robin, HEMANTH 11/14/2024 4:28 PM Signed Pt returned call and given provider's message below with verbalized understanding. Patient agreeable. Allergies As of Date: 11/14/2024 Noted Allergy Reaction ATORVASTATIN 03/31/2024 14 - Other: See Comments SULFA (SULFONAMIDE ANTIBIOTICS) 10/19/2006 Comments: itching, rash Date Reviewed: 11/12/2024 Reviewed by: Varsha Mendoza MA - Fully Assessed Reason for Visit: Results [95] Prescriptions as of 11/14/2024 - aspirin (ASPIR-81 ORAL) Take by mouth. - cephALEXin (KEFLEX) 500 mg capsule Take 1 capsule by mouth four times daily for 7 days. - naproxen (NAPROSYN) 500 mg tablet Take 1 tablet by mouth two times a day as needed for pain (FOR PAIN - TAKE WITH FOOD.). - loratadine (ALLERGY RELIEF, LORATADINE,) 10 mg tablet Take 1 tablet by mouth once daily. - atenolol (TENORMIN) 25 mg tablet Take 1 tablet by mouth once daily. - Cholecalciferol, Vitamin D3, 25 mcg (1,000 unit) cap Take 1 capsule by mouth once daily. - FLUoxetine (PROZAC) 20 mg capsule Take 1 capsule by mouth once daily. Take 1 capsule by mouth once daily Problem List As Of Date 11/14/2024 Noted Resolved INSOMNIA NOS [G47.00] 07/04/2007 Anxiety state, unspecified [F41.1] 07/04/2007 06/28/2016 Headache(784.0) [R51] 07/04/2007 06/28/2016 Essential hypertension [I10] 07/04/2007 Major depressive disorder, recurrent episode (H*08/19/2007 CHOLELITHIASIS NOS [K80.20] 07/13/2008 Acute gastritis without mention of hemorrhage [*10/04/2010 Dyspepsia and other specified disorders of func*10/04/2010 11/16/2015 ASCUS on Pap smear [FGN5164] 08/23/2011 Blood in stool [K92.1] 08/31/2011 03/24/2014 Anemia, unspecified [D64.9] 08/31/2011 06/28/2016 Iron deficiency anemia [D50.9] 09/28/2011 Neck pain [M54.2] 01/23/2013 06/28/2016 Cervicalgia [M54.2] 11/06/2013 Adjustment disorder with mixed anxiety and depr*12/29/2013 Psychic factors associated with diseases classi*12/29/2013 Sciatica [M54.30] 02/23/2015 Tension-type headache, not intractable [G44.209]01/27/2016 Abnormal mammogram [R92.8] 07/06/2017 Encounter Status:Closed by Sindi CERVANTES on 11/14/24 Normal [facility] Bacteria Ur Culton 5 Bacteria identified Cx Nom (U) ORGANISM ID: 1 >=100,000 CFU/ml Escherichia coli ORGANISM ID: 1 (ESCHERICHIA COLI) ------ ANTIBIOTIC INTERPRETATION LUIS STATUS REFERENCE RANGE ------ Ampicillin R >=32 F Susceptible <=8 , Intermediate >8 , Resistant >16 Cefazolin S 16 F Susceptible 0-16 , Intermediate <0 or >16 , Resistant >16 For uncomplicated urinary tract infections, cefazolin results can be used to predict susceptibility or resistance to cephalexin. Ceftriaxone S <=1 F Susceptible <=1 , Intermediate >1 , Resistant >=4 Cefepime S <=1 F Susceptible <=2 , Susceptible-Dose Dependent >2 , Resistant >=16 Ertapenem S <=0.5 F Susceptible <=0.5 , Intermediate >.5 , Resistant >1 Meropenem S <=0.25 F Susceptible <=1 , Intermediate >1 , Resistant >2 Ampicillin/Sulbact R >=32 F Susceptible <=8 , Intermediate >8 , Resistant >16 Piperacillin/Tazobac R 64 F Susceptible <16 , Susceptible-Dose Dependent >=16 , Resistant >=32 Gentamicin S <=1 F Susceptible <=2 , Intermediate >2 , Resistant >=8 Tobramycin S <=1 F Susceptible <4 , Intermediate >=4 , Resistant >=8 Trimeth sulfameth R >=320 F Susceptible <=40 , Resistant >40 Ciprofloxacin S <=0.25 F Susceptible <0.5 , Intermediate >=.5 , Resistant >=1 Nitrofurantoin I 64 F Susceptible <=32 , Intermediate >32 , Resistant >64 Abnormal [facility] Comment on above: Performed By: #### 1 [id number] #### [facility] [place] [id number] [address] [place] [address] [place] CNOVon 11-12-2024 CNOV Office Visit (UCWSTR ) SUHAS ABURTO ([id number]) 1965 F Date Time Provider Department 11/12/24 10:00 AM YANDEL DE LA ROSA [facility] During your visit today, we recorded the following information about you: Temperature Pulse Respiration Blood pressure 99.5 degrees 85/minute 20/minute 122/80 Weight 62.6 kg Yandel De La Rosa PA-C 11/12/2024 10:17 AM Signed This note was created using [employer]. Subjective Suhas Aburto is a 59 year old female. Patient is a 59-year-old female who complains of dysuria, chills and bodyaches that she has been experiencing for the past 1 day. Patient denies fever, hematuria, flank pain, nausea or other symptoms. Patient states that she has no history of urinary tract infection and has not previously experienced similar symptoms. Review of Systems Constitutional: Positive for chills. Genitourinary: Positive for dysuria. Musculoskeletal: Positive for myalgias. All other systems reviewed and are negative. Objective BP 122/80 Pulse 85 Temp 37.5 ?C (99.5 ?F) Resp 20 Wt 62.6 kg (138 lb 0.1 oz) LMP 04/26/2017 SpO2 98% BMI 26.95 kg/m? Physical Exam Vitals and nursing note reviewed. Constitutional: Appearance: Normal appearance. She is normal weight. HENT: Head: Normocephalic and atraumatic. Right Ear: External ear normal. Left Ear: External ear normal. Nose: Nose normal. Mouth/Throat: Mouth: Mucous membranes are moist. Pharynx: Oropharynx is clear. Eyes: Extraocular Movements: Extraocular movements intact. Conjunctiva/sclera: Conjunctivae normal. Pupils: Pupils are equal, round, and reactive to light. Cardiovascular: Rate and Rhythm: Normal rate. Pulses: Normal pulses. Heart sounds: Normal heart sounds. Pulmonary: Effort: Pulmonary effort is normal. Breath sounds: Normal breath sounds. Abdominal: General: Abdomen is flat. Palpations: Abdomen is soft. Musculoskeletal: Cervical back: Normal range of motion and neck supple. Skin: General: Skin is warm and dry. Capillary Refill: Capillary refill takes less than 2 seconds. Neurological: General: No focal deficit present. Mental Status: She is alert and oriented to person, place, and time. Psychiatric: Mood and Affect: Mood normal. Behavior: Behavior normal. Thought Content: Thought content normal. Judgment: Judgment normal. Assessment and Plan Physical exam findings as noted above. Urinalysis shows large leukocyte esterase, nitrite and large blood. Urine culture was ordered. Patient was provided with a prescription for Keflex 500 mg and advised that results of the urine culture will be available in 2 days. Patient was informed that she will be contacted if there is a need to change her medication based on the sensitivity report. Patient verbalizes clear understanding of the above instructions. CLINICAL IMPRESSION: Acute UTI ASSESSMENT/PLAN: 1. Painful urination - ICD9: 788.1, ICD10: R30.9 (primary diagnosis) - UA DIP, URINE (POC) - BACTERIAL CULTURE, URINE 2. Acute UTI - ICD9: 599.0, ICD10: N39.0 - BACTERIAL CULTURE, URINE - CEPHALEXIN 500 MG CAPSULE Yandel NAOMY De La Rosa Allergies As of Date: 11/12/2024 Noted Allergy Reaction ATORVASTATIN 03/31/2024 14 - Other: See Comments SULFA (SULFONAMIDE ANTIBIOTICS) 10/19/2006 Comments: itching, rash Date Reviewed: 11/12/2024 Reviewed by: Varsha Mendoza MA - Fully Assessed Reason for Visit: Urinary Problem [252] Cmt: Possible uti, painful urination, chills, body aches x 1 day Primary Visit Diagnosis:Painful urination [R30.9] Other Visit Diagnosis:Acute UTI [N39.0] Order(s):UA DIP, URINE (POC) [[id number]] Order #: [id number] #:[id number] BACTERIAL CULTURE, URINE [SQURCUL] Order #: [id number]. #:[id number] cephALEXin (KEFLEX) 500 mg capsuleTake 1 capsule by mouth four times daily for 7 days.Disp: 28 capsuleRfl: 0 Prescriptions as of 11/12/2024 - aspirin (ASPIR-81 ORAL) Take by mouth. - cephALEXin (KEFLEX) 500 mg capsule Take 1 capsule by mouth four times daily for 7 days. - naproxen (NAPROSYN) 500 mg tablet Take 1 tablet by mouth two times a day as needed for pain (FOR PAIN - TAKE WITH FOOD.). - loratadine (ALLERGY RELIEF, LORATADINE,) 10 mg tablet Take 1 tablet by mouth once daily. - atenolol (TENORMIN) 25 mg tablet Take 1 tablet by mouth once daily. - Cholecalciferol, Vitamin D3, 25 mcg (1,000 unit) cap Take 1 capsule by mouth once daily. - FLUoxetine (PROZAC) 20 mg capsule Take 1 capsule by mouth once daily. Take 1 capsule by mouth once daily Problem List As Of Date 11/12/2024 Noted Resolved INSOMNIA NOS [G47.00] 07/04/2007 Anxiety state, unspecified [F41.1] 07/04/2007 06/28/2016 Headache(784.0) [R51] 07/04/2007 06/28/2016 Essential hypertension [I10] 07/04/2007 Major depressive disorder, recurrent episode (H*08/19/2007 CHOLELITHIASIS NOS [K80.20 (more content not included)... Normal [facility] UA DIP, URINE (POC)on 2024 BILIRUBIN UA (POCT) Negative Negative [facility] CLARITY UA (POCT) Cloudy [facility] COLOR UA (POCT) Light yellow [facility] GLUCOSE UA (POCT) Negative Negative mg/dL [facility] Hemoglobin Ql (U) Large Abnormal Negative [facility] Interpretation and review of laboratory results Abnormal [facility] KETONE UA (POCT) Negative Negative mg/dL [facility] LEUKOCYTES UA (POCT) Large Abnormal Negative [facility] NITRITE UA (POCT) Positive Abnormal Negative [facility] PH UA (POCT) 6.0 4.5 - 8.0 [facility] Protein Ql (U) 100 mg/dL Abnormal Negative [facility] SPECIFIC GRAVITY UA (POCT) 1.010 1.005 - 1.030 [facility] UROBILINOGEN UA (POCT) 0.2 Palak l E.U./dL [facility] Location:[facility], [address], [place], [address] [facility] POINT OF CARE [facility] Cardiology Visit Reporton Cardiology Visit Report [facility] [address] [place], [place] [address] OFFICE VISIT Date of Service: 10/16/24 MR#: [id number] Acct: [id number] Name: SUHAS ABURTO Rep #: [id number] : 1965 Provider: WESTON scott Age/Sex: 59/F Location: [facility] Status: Signed HPI HPI History of Present Illness Details: This is a 59-year-old female who presents to the office today for a posthospital follow-up. She was evaluated [facility] August 2024 for hypertension and elevated troponin. Prior to ER evaluation, she had a mechanical fall. Echocardiogram showed a preserved ejection fraction. It was recommended undergo event monitor and stress test on an outpatient basis. She has a past medical history of hypertension and anemia. She does have a family history of coronary artery disease. She denies chest, arm, jaw, or neck discomfort. She denies palpitations. She denies bilateral lower extremity edema. She denies claudication. She denies shortness of breath with activity, shortness of breath at rest, orthopnea, or PND. She denies chronic cough. She denies significant, sudden weight gain. She denies lightheadedness, dizziness, near-syncope, or syncope. She denies blood in urine, blood in stool, or epistaxis. He denies fever with chills. She denies myalgia. She denies fatigue. She acknowledges occasional weakness. Her exercise level has remained stable. 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 Required: No Is patient in pain?: No Allergies atorvastatin (From Lipitor) Allergy (Severe, Verified 10/16/24 13:25) Bad skin reaction Sulfa (Sulfonamide Antibiotics) Allergy (Verified 10/16/24 13:25) Unknown Medications ???Medication ???Instructions ???Recorded ???Confirmed ???Type ascorbic acid (vitamin C) 500 mg 500 mg PO DAILY 12/29/19 10/16/24 History tablet acetaminophen 500 mg tablet 500 - 1,000 mg (1 - 2 x 500 mg) PO 07/11/22 10/16/24 Rx TID-QID PRN fever or pain #60 tabs atenolol 25 mg tablet 25 mg PO QDAY #30 tabs 01/08/24 10/16/24 Rx cholecalciferol (vitamin D3) 25 1,000 unit PO QDAY #30 caps 01/08/24 10/16/24 Rx mcg (1,000 unit) capsule loratadine 10 mg tablet 10 mg PO QDAY PRN allergy symptoms 01/08/24 10/16/24 Rx #30 tabs ibuprofen 600 mg tablet 600 mg PO TID-QID PRN pain #30 tabs 06/17/24 10/16/24 Rx fluoxetine 20 mg capsule 20 mg PO DAILY 09/05/24 10/16/24 History Ejection fraction %: 55 (55-60) Have you fallen in the past year?: Yes [facility] Medical History Anxiety and depression Osteoarthritis of left knee Cataract Arthritis GERD (gastroesophageal reflux disease) Vitamin D deficiency Overweight Anxiety Depression Hyperlipemia Anemia Hypertension Abnormal EKG Chest pain Surgical History History of wisdom tooth extraction, class IV edentulism History of Family History Brother , age 55 or 56 Myocardial infarction Sudden cardiac Brother , 55 or 56 , from liver failure CAD (coronary artery disease) S/P CABG (coronary artery bypass graft) Liver failure Mother Cancer throat Social History (Updated 10/16/24 @ 13:29 by Lilli Mills) household members: family number of children: 3 current occupational status: unemployed pets and animals: No other: Patient has 1 child and 2 stepchildren Smoking Status: Never smoker alcohol intake: never substance use type: does not use caffeine: Yes Type: tea what type of physical activity do you participate in: none seatbelt use: always do you feel safe at home: Yes additional social history: - Shun BUSTOS Const Const: Positive for weakness (Occasionally); Negative for fatigue Eyes Eyes: Negative for change in vision ENT ENT: Positive for balance problems (Relates to osteoarthritis) and other (Tingling noted to left hand); Negative for dizziness Cardio Chest Pain: No Palpitations: No Edema: None Muscle aches with walking: None Resp Respiratory: Negative for SOB with activity, SOB at rest or SOB orthopnea SOB lying down GI GI: Negative nausea or heartburn : Negative for hematuria or frequent nighttime urination/ nocturia Musc Musc: Positive for balance problems (Relates to osteoarthritis) Skin Skin: Negative non-healing lesions or rash Neuro Neuro: Positive for weakness (Occasionally); Negative for dizziness, lightheadedness, near syncope or syncope Endo Endo: N (more content not included)... Normal [facility] CNPNon 09-24-2024 CNPN Telephone (AGFAMPLE) SUHAS ABURTO ([id number]) 1965 F Date Time Provider Department 09/24/24 NORA ROBERTSON During your visit today, we recorded the following information about you: Chayito Norris MA 09/24/2024 2:21 PM Signed ----- Message from Nora Robertson APRN.ACCELERATOR SYSTEMS DIRECTOR sent at 09/24/2024 1:38 PM EST ----- Pap and HPV were both negative. She does not need to repeat it in 5 years. Chayito Norris MA 09/24/2024 2:22 PM Signed Lm on pt. Vm with all information. Chayito Norris MA Allergies As of Date: 09/24/2024 Noted Allergy Reaction ATORVASTATIN 03/31/2024 14 - Other: See Comments SULFA (SULFONAMIDE ANTIBIOTICS) 10/19/2006 Comments: itching, rash Date Reviewed: 09/18/2024 Reviewed by: Nora Robertson APRN.ACCELERATOR SYSTEMS DIRECTOR - Fully Assessed Reason for Visit: Results [95] Prescriptions as of 09/24/2024 - naproxen (NAPROSYN) 500 mg tablet Take 1 tablet by mouth two times a day as needed for pain (FOR PAIN - TAKE WITH FOOD.). - loratadine (ALLERGY RELIEF, LORATADINE,) 10 mg tablet Take 1 tablet by mouth once daily. - atenolol (TENORMIN) 25 mg tablet Take 1 tablet by mouth once daily. - Cholecalciferol, Vitamin D3, 25 mcg (1,000 unit) cap Take 1 capsule by mouth once daily. - FLUoxetine (PROZAC) 20 mg capsule Take 1 capsule by mouth once daily. Take 1 capsule by mouth once daily Problem List As Of Date 09/24/2024 Noted Resolved INSOMNIA NOS [G47.00] 07/04/2007 Anxiety state, unspecified [F41.1] 07/04/2007 06/28/2016 Headache(784.0) [R51] 07/04/2007 06/28/2016 Essential hypertension [I10] 07/04/2007 Major depressive disorder, recurrent episode (H*08/19/2007 CHOLELITHIASIS NOS [K80.20] 07/13/2008 Acute gastritis without mention of hemorrhage [*10/04/2010 Dyspepsia and other specified disorders of func*10/04/2010 11/16/2015 ASCUS on Pap smear [QMN4728] 08/23/2011 Blood in stool [K92.1] 08/31/2011 03/24/2014 Anemia, unspecified [D64.9] 08/31/2011 06/28/2016 Iron deficiency anemia [D50.9] 09/28/2011 Neck pain [M54.2] 01/23/2013 06/28/2016 Cervicalgia [M54.2] 11/06/2013 Adjustment disorder with mixed anxiety and depr*12/29/2013 Psychic factors associated with diseases classi*12/29/2013 Sciatica [M54.30] 02/23/2015 Tension-type headache, not intractable [G44.209]01/27/2016 Abnormal mammogram [R92.8] 07/06/2017 Encounter Status:Closed by CHAYITO NORRIS on 09/24/24 Normal [facility] CNOVon 09-18-2024 CNOV Office Visit (AGFAMPLE) SUHAS ABURTO ([id number]) 1965 F Date Time Provider Department 09/18/24 4:00 PM NORA ROBERTSON During your visit today, we recorded the following information about you: Temperature Pulse Respiration Blood pressure 98.1 degrees 70/minute 16/minute 116/68 Weight Height 62.8 kg 1.524 m Nora Robertson APRN.ACCELERATOR SYSTEMS DIRECTOR 09/21/2024 8:11 [place] [address] Date of Evaluation: 09/18/2024 Patient Name: Suhas Aburto : 1965 Chief Complaint: 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 Aburto is a 59 year old who presents for an annual gynecologic exam without complaints. I reviewed past medical, surgical, social, and family histories today and updated chart. Allergies, chronic medications, and supplements were also reviewed. Postmenopausal: Yes since age 55 HRT use: No. HPV vaccine: N/A Last Pap: normal HPV: N/A History of abnormal pap: No Last mammogram: 2018abnormal, Prior history of abnormal mammogram Sexually active: No Hot flashes: No Night sweats: No Will be seeing a appointment scheduler in [place] after recent ER visit to [place] after she fell and hit her head which caused altered mental status. She also had elevated BP and troponins. ER report scanned into EMR. Review of Systems Constitutional: Negative for appetite change, chills, diaphoresis, fatigue, fever and unexpected weight change. HENT: Negative. Respiratory: Negative. Cardiovascular: Negative. Gastrointestinal: Negative. Genitourinary: Negative. Musculoskeletal: Positive for arthralgias and myalgias. Negative for gait problem, joint swelling, neck pain and neck stiffness. Skin: Negative. Neurological: Negative. Psychiatric/Behaviora l: Positive for dysphoric mood. Negative for sleep disturbance. The patient is nervous/anxious. Obstetric History T0 L1 SAB0 IAB0 Ectopic0 Multiple0 Live Births0 PAST MEDICAL HISTORY Diagnosis Date Dyspepsia and other specified disorders of function of stomach Essential hypertension, benign PAST SURGICAL HISTORY Procedure Laterality Date DELIVERY ONLY , low cervical COLONOSCOPY FLX DX W/COLLJ SPEC WHEN PFRMD 08/31/2011 Colonoscopy/repeat in EGD TRANSORAL BIOPSY SINGLE/MULTIPLE 10/04/10 ESOPHAGOGASTRODUODENO SCOPY TRANSORAL DIAGNOSTIC 08/31/2011 EGD FAMILY HISTORY Problem Relation Age of Onset Cancer Mother throat Heart Brother [place] Diabetes Brother Coronary Artery Disease Brother [place] Social History Tobacco Use Smoking status: Never Smokeless tobacco: Never Substance Use Topics Alcohol use: No Drug use: No Current Meds loratadine (ALLERGY RELIEF, LORATADINE,) 10 mg tablet Take 1 tablet by mouth once daily. atenolol (TENORMIN) 25 mg tablet Take 1 tablet by mouth once daily. Cholecalciferol, Vitamin D3, 25 mcg (1,000 unit) cap Take 1 capsule by mouth once daily. FLUoxetine (PROZAC) 20 mg capsule Take 1 capsule by mouth once daily. Take 1 capsule by mouth once daily naproxen (NAPROSYN) 500 mg tablet Take 1 tablet by mouth two times a day as needed for pain (FOR PAIN - TAKE WITH FOOD.). I have confirmed and edited as necessary the chief complaint, medications, past medical, family and social histories. Objective BP 116/68 Pulse 70 Temp 36.7 ?C (98.1 ?F) Resp 16 Ht 152.4 cm (5') Wt 62.8 kg (138 lb 8 oz) LMP 04/26/2017 SpO2 99% BMI 27.05 kg/m? Physical Exam Vitals and nursing note reviewed. Constitutional: Appearance: Normal appearance. Cardiovascular: Rate and Rhythm: Normal rate and regular rhythm. Heart sounds: Normal heart sounds. Pulmonary: Effort: Pulmonary effort is normal. Breath sounds: Normal breath sounds. Chest: Breasts: Kenroy Score is 5. Breasts are symmetrical. Right: Normal. Left: Normal. Abdominal: General: Bowel sounds are normal. There is no distension. Palpations: Abdomen is soft. Tenderness: There is no abdominal tenderness. Genitourinary: General: Normal vulva. Exam position: Supine. Pubic Area: No rash. Labia: Right: No rash, tenderness or lesion. Left: No rash, tenderness or lesion. Urethra: No prolapse or urethral swelling. Vagina: Vaginal discharge present. No erythema, tenderness or bleeding. Comments: [employer]il [employer] Technical Officer offered. Switched to small speculum due to discomfort with initial speculum. She reports it is still uncomfortable (states it is because she is not sexually active). I attempted to visual the cervix but it was difficult due to limited exam. Cytology was attempted. Bimanual exam not performed due to pain with exam. Musculoskeletal: Thoracic back: Tenderness present. No swelling. Normal range of motion. Lumbar back: Norm (more content not included)... Normal [facility] HIGH RISK HUMAN PAPILLOMA DILLON (HPV), PCR FOR DETECTION AND GENOTYPINGon 09-18-2024 HPV 16 Ag Ql (Unsp spec) Not detected Normal Not detec [facility] Comment on above: Order Comment: Speci men Type: FLUID SPECIMENOrdering Facility: [facility] Address: [address] [place] [address] Performed By: #### H PVHRT ####[facility] LABCLIA [id number] [place] [address] [place] HPV 18 Ag Ql (Unsp spec) Not detected Normal Not detec [facility] Comment on above: Order Comment: Speci men Type: FLUID SPECIMENOrdering Facility: [facility] Address: [address] [place] [address] Performed By: #### H PVHRT ####[facility] LABIA [id number] [place] HPV 31+33+35+39+45+51+52+56+ 58+59+66+68 DNA LILIBETH+probe Ql (Cvx) Not detected Normal Not detected [facility] Comment on above: Order Comment: Speci men Type: FLUID SPECIMENOrdering Facility: [facility] Address: [address] [place] [address] Result Comment: High Risk HPV Other Type includes HPV types 31, 33, 35, 39, 45, 51, 52, 56, 58, 59, 66 and 68. Performed By: #### H PVHRT ####[facility] LABCLIA [id number] [place] [address] [place] PAP TESTon 09-18-2024 ADEQUACY Normal [facility] Comment on above: Order Comment: Speci men Type: FLUID SPECIMEN [facility] Address: [address] [place] [address] Result Comment: Sati sfactory for interpretation. No endocervical component Performed By: #### L [id number] #### [facility] CLIA [id number] [address] [place] CASE REPORT Normal [facility] Comment on above: Order Comment: Speci men Type: FLUID SPECIMEN [facility] Address: [address] [place] [address] Result Comment: Gyne cologic Cytology Report Case: [id number] Authorizing Provider: Nora Robertson, Collected: 09/18/2024 04:04 PM HORIZONTAL BORING MILL OPERATOR.ACCELERATOR SYSTEMS DIRECTOR Ordering Location: [facility] Received: 09/18/2024 05:33 PM First Screen: Feciuch, Merry, CT, ASCP Specimen: Pap Test, ThinPrep, Cervix Performed By: #### L [id number] #### [facility] CLIA [id number] [address] [place] CLINICAL HISTORY, CYTOLOGY, ELECTRONIC ASSEMBLY Post Menopausal Normal [facility] Comment on above: Order Comment: Speci men Type: FLUID SPECIMEN [facility] Address: [address] [place] [address] Performed By: #### L [id number] #### [facility] CLIA [id number] [address] [place] [address] FINAL PERFORMING LAB Normal [facility] Comment on above: Order Comment: Speci men Type: FLUID SPECIMEN [facility] Address: [address] [place] [address] Result Comment: Tech nical component, hypertrichologist screening performed at [facility], [address] [place] [address] CLIA# [id number] Diagnostic interpretation performed at [facility], [address] [place] [address] CLIA# [id number] Formula Room Worker: Ezekiel Baer M.D. Performed By: #### L [id number] #### [facility] CLIA [id number] [address] [place] [address] INTERPRETATION, CYTOLOGY, ELECTRONIC ASSEMBLY Normal [facility] Comment on above: Order Comment: Speci men Type: FLUID SPECIMEN [facility] Address: [address] [place] [address] Result Comment: Nega tive for intraepithelial lesion or malignancy. Performed By: #### L [id number] #### [facility] CLIA [id number] [address] [place] [address] PAP DISCLAIMER COMMENT The Pap Smear is a screening test for cervical cancer. False negative results occur with all screening tests, emphasizing the need for rescreening at recommended intervals, and clinical correlation. [facility] Comment on above: Order Comment: Speci men Type: FLUID SPECIMEN [facility] Address: [address] [place] [address] Performed By: #### L [id number] #### [facility] CLIA [id number] [address] [place] [address] PAP DEHORNER COMMENT This specimen has been analyzed by the [employer] System, an automated imaging and review system, which assists the laboratory in evaluating cells on ThinPrep Pap tests. Following automated imaging, selected kemp from every slide are reviewed by a hypertrichologist. Normal [facility] Comment on above: Order Comment: Speci men Type: FLUID SPECIMEN [facility] Address: [address] [place] [address] Performed By: #### L [id number] #### [facility] CLIA [id number] [address] [place] [address] [place] Basic Metabolic Profile (BMP )on 09-13-2024 BUN Normal 7-18 [facility] Comment on above: Result Comment: Canc elled via OM: Order cancelled - Patient discharged Performed By: #### L 500.2500, L100.0500 #### [facility] [address] [place], [address] BUN/CRE Normal 10-20 [facility] Comment on above: Result Comment: Canc elled via OM: Order cancelled - Patient discharged Performed By: #### L 500.2500, L100.0500 #### [facility] [address] [place], [address] CA,Total Normal 8.5-10.1 [facility] Comment on above: Result Comment: Canc elled via OM: Order cancelled - Patient discharged Performed By: #### L 500.2500, L100.0500 #### [facility] [address] [place], [address] CL Normal 98-107 [facility] Comment on above: Result Comment: Canc elled via OM: Order cancelled - Patient discharged Performed By: #### L 500.2500, L100.0500 #### [facility] [address] [place], [address] CO2 Normal 21.0-32.0 [facility] Comment on above: Result Comment: Canc elled via OM: Order cancelled - Patient discharged Performed By: #### L 500.2500, L100.0500 #### [facility] [address] [place], [address] CREAT,SERUM Normal 0.55-1.02 [facility] Comment on above: Result Comment: Canc elled via OM: Order cancelled - Patient discharged Performed By: #### L 500.2500, L100.0500 #### [facility] [address] [place], [address] EST GFR Normal >60 [facility] Comment on above: Result Comment: Canc elled via OM: Order cancelled - Patient discharged Performed By: #### L 500.2500, L100.0500 #### [facility] [address] [place], [address] EST GFR - AA Normal >60 [facility] Comment on above: Result Comment: Canc elled via OM: Order cancelled - Patient discharged Performed By: #### L 500.2500, L100.0500 #### [facility] [address] [place], [address] GAP Normal 5-15 [facility] Comment on above: Result Comment: Canc elled via OM: Order cancelled - Patient discharged Performed By: #### L 500.2500, L100.0500 #### [facility] [address] [place], [address] GLU Normal 74-106 [facility] Comment on above: Result Comment: Canc elled via OM: Order cancelled - Patient discharged Performed By: #### L 500.2500, L100.0500 #### [facility] [address] [place], [address] Potassium Normal 3.5-5.1 [facility] Comment on above: Result Comment: Canc elled via OM: Order cancelled - Patient discharged Performed By: #### L 500.2500, L100.0500 #### [facility] [address] [place], [address] Basic Metabolic Profile (BMP) Normal 136-145 [facility] Comment on above: Result Comment: Canc elled via OM: Order cancelled - Patient discharged Performed By: #### L 500.2500, L100.0500 #### [facility] [address] [place], [address] CBC-Complete Blood Cnt No Di ffon 09-13-2024 HCT Normal 37-47 [facility] Comment on above: Result Comment: Canc elled via OM: Order cancelled - Patient discharged Performed By: #### L 500.2500, L100.0500 #### [facility] [address] [place], [address] HGB Normal 12.0-15.0 [facility] Comment on above: Result Comment: Canc elled via OM: Order cancelled - Patient discharged Performed By: #### L 500.2500, L100.0500 #### [facility] [address] [place], [address] MCH Normal 27.0-32.0 [facility] Comment on above: Result Comment: Canc elled via OM: Order cancelled - Patient discharged Performed By: #### L 500.2500, L100.0500 #### [facility] [address] [place], [address] MCHC Normal 32-36 [facility] Comment on above: Result Comment: Canc elled via OM: Order cancelled - Patient discharged Performed By: #### L 500.2500, L100.0500 #### [facility] [address] [place], [address] MCV Normal 81-99 [facility] Comment on above: Result Comment: Canc elled via OM: Order cancelled - Patient discharged Performed By: #### L 500.2500, L100.0500 #### [facility] [address] [place], [address] PLT Normal 150-450 [facility] Comment on above: Result Comment: Canc elled via OM: Order cancelled - Patient discharged Performed By: #### L 500.2500, L100.0500 #### [facility] [address] [place], [address] RBC Normal 4.2-5.4 [facility] Comment on above: Result Comment: Canc elled via OM: Order cancelled - Patient discharged Performed By: #### L 500.2500, L100.0500 #### [facility] [address] [place], [address] RDW CV Normal 11.6-14.6 [facility] Comment on above: Result Comment: Canc elled via OM: Order cancelled - Patient discharged Performed By: #### L 500.2500, L100.0500 #### [facility] [address] [place], [address] RDW SD Normal 35.1-43.9 [facility] Comment on above: Result Comment: Canc elled via OM: Order cancelled - Patient discharged Performed By: #### L 500.2500, L100.0500 #### [facility] [address] [place], [address] WBC Normal 4.4-11.0 [facility] Comment on above: Result Comment: Canc elled via OM: Order cancelled - Patient discharged Performed By: #### L 500.2500, L100.0500 #### [facility] [address] [place], [address] Basic Metabolic Profile (BMP )on 09-12-2024 BUN Normal 7-18 [facility] Comment on above: Result Comment: Canc elled via OM: Order cancelled - Patient discharged Performed By: #### L 400.0001 #### [facility] [address] [place], [address] BUN/CRE Normal 10-20 [facility] Comment on above: Result Comment: Canc elled via OM: Order cancelled - Patient discharged Performed By: #### L 400.0001 #### [facility] [address] [place], [address] CA,Total Normal 8.5-10.1 [facility] Comment on above: Result Comment: Canc elled via OM: Order cancelled - Patient discharged Performed By: #### L 400.0001 #### [facility] [address] [place], [address] CL Normal 98-107 [facility] Comment on above: Result Comment: Canc elled via OM: Order cancelled - Patient discharged Performed By: #### L 400.0001 #### [facility] [address] [place], [address] CO2 Normal 21.0-32.0 [facility] Comment on above: Result Comment: Canc elled via OM: Order cancelled - Patient discharged Performed By: #### L 400.0001 #### [facility] [address] [place], [address] CREAT,SERUM Normal 0.55-1.02 [facility] Comment on above: Result Comment: Canc elled via OM: Order cancelled - Patient discharged Performed By: #### L 400.0001 #### [facility] [address] [place], [address] EST GFR Normal >60 [facility] Comment on above: Result Comment: Canc elled via OM: Order cancelled - Patient discharged Performed By: #### L 400.0001 #### [facility] [address] [place], [address] EST GFR - AA Normal >60 [facility] Comment on above: Result Comment: Canc elled via OM: Order cancelled - Patient discharged Performed By: #### L 400.0001 #### [facility] [address] [place], [address] GAP Normal 5-15 [facility] Comment on above: Result Comment: Canc elled via OM: Order cancelled - Patient discharged Performed By: #### L 400.0001 #### [facility] [address] [place], [address] GLU Normal 74-106 [facility] Comment on above: Result Comment: Canc elled via OM: Order cancelled - Patient discharged Performed By: #### L 400.0001 #### [facility] [address] [place], [address] Potassium Normal 3.5-5.1 [facility] Comment on above: Result Comment: Canc elled via OM: Order cancelled - Patient discharged Performed By: #### L 400.0001 #### [facility] [address] [place], [address] Basic Metabolic Profile (BMP) Normal 136-145 [facility] Comment on above: Result Comment: Canc elled via OM: Order cancelled - Patient discharged Performed By: #### L 400.0001 #### [facility] [address] [place], [address] Bedside Glucoseon 09-12-2024 [place] GLU 93 mg/dL Normal 74-106 [facility] Comment on above: Result Comment: EHSAN WINTER OF PATIENT CARE PER NURSING PROTOCOL Performed By: #### L 400.0001 #### [facility] [address] [place], [address] CBC-Complete Blood Cnt No Di ffon 09-12-2024 HCT Normal 37-47 [facility] Comment on above: Result Comment: Canc elled via OM: Order cancelled - Patient discharged Performed By: #### L 400.0001 #### [facility] [address] [place], [address] HGB Normal 12.0-15.0 [facility] Comment on above: Result Comment: Canc elled via OM: Order cancelled - Patient discharged Performed By: #### L 400.0001 #### [facility] [address] [place], [address] MCH Normal 27.0-32.0 [facility] Comment on above: Result Comment: Canc elled via OM: Order cancelled - Patient discharged Performed By: #### L 400.0001 #### [facility] [address] [place], [address] MCHC Normal 32-36 [facility] Comment on above: Result Comment: Canc elled via OM: Order cancelled - Patient discharged Performed By: #### L 400.0001 #### [facility] [address] [place], [address] MCV Normal 81-99 [facility] Comment on above: Result Comment: Canc elled via OM: Order cancelled - Patient discharged Performed By: #### L 400.0001 #### [facility] [address] [place], [address] PLT Normal 150-450 [facility] Comment on above: Result Comment: Canc elled via OM: Order cancelled - Patient discharged Performed By: #### L 400.0001 #### [facility] [address] [place], [address] RBC Normal 4.2-5.4 [facility] Comment on above: Result Comment: Canc elled via OM: Order cancelled - Patient discharged Performed By: #### L 400.0001 #### [facility] [address] [place], [address] RDW CV Normal 11.6-14.6 [facility] Comment on above: Result Comment: Canc elled via OM: Order cancelled - Patient discharged Performed By: #### L 400.0001 #### [facility] [address] [place], [address] RDW SD Normal 35.1-43.9 [facility] Comment on above: Result Comment: Canc elled via OM: Order cancelled - Patient discharged Performed By: #### L 400.0001 #### [facility] [address] [place], [address] WBC Normal 4.4-11.0 [facility] Comment on above: Result Comment: Canc elled via OM: Order cancelled - Patient discharged Performed By: #### L 400.0001 #### [facility] [address] [place], [address] Basic Metabolic Profile (BMP )on 09-11-2024 BUN Normal 7-18 [facility] Comment on above: Result Comment: Canc elled via OM: Order cancelled - Patient discharged Performed By: #### L 100.0500, L500.2500 #### [facility] [address] [place], [address] BUN/CRE Normal 10-20 [facility] Comment on above: Result Comment: Canc elled via OM: Order cancelled - Patient discharged Performed By: #### L 100.0500, L500.2500 #### [facility] [address] [place], [address] CA,Total Normal 8.5-10.1 [facility] Comment on above: Result Comment: Canc elled via OM: Order cancelled - Patient discharged Performed By: #### L 100.0500, L500.2500 #### [facility] [address] [place], [address] CL Normal 98-107 [facility] Comment on above: Result Comment: Canc elled via OM: Order cancelled - Patient discharged Performed By: #### L 100.0500, L500.2500 #### [facility] [address] [place], [address] CO2 Normal 21.0-32.0 [facility] Comment on above: Result Comment: Canc elled via OM: Order cancelled - Patient discharged Performed By: #### L 100.0500, L500.2500 #### [facility] [address] [place], [address] CREAT,SERUM Normal 0.55-1.02 [facility] Comment on above: Result Comment: Canc elled via OM: Order cancelled - Patient discharged Performed By: #### L 100.0500, L500.2500 #### [facility] [address] [place], [address] EST GFR Normal >60 [facility] Comment on above: Result Comment: Canc elled via OM: Order cancelled - Patient discharged Performed By: #### L 100.0500, L500.2500 #### [facility] [address] [place], [address] EST GFR - AA Normal >60 [facility] Comment on above: Result Comment: Canc elled via OM: Order cancelled - Patient discharged Performed By: #### L 100.0500, L500.2500 #### [facility] [address] [place], [address] GAP Normal 5-15 [facility] Comment on above: Result Comment: Canc elled via OM: Order cancelled - Patient discharged Performed By: #### L 100.0500, L500.2500 #### [facility] [address] [place], [address] GLU Normal 74-106 [facility] Comment on above: Result Comment: Canc elled via OM: Order cancelled - Patient discharged Performed By: #### L 100.0500, L500.2500 #### [facility] [address] [place], [address] Potassium Normal 3.5-5.1 [facility] Comment on above: Result Comment: Canc elled via OM: Order cancelled - Patient discharged Performed By: #### L 100.0500, L500.2500 #### [facility] [address] [place], [address] Basic Metabolic Profile (BMP) Normal 136-145 [facility] Comment on above: Result Comment: Canc elled via OM: Order cancelled - Patient discharged Performed By: #### L 100.0500, L500.2500 #### [facility] [address] [place], [address] CBC-Complete Blood Cnt No Di ffon 09-11-2024 HCT Normal 37-47 [facility] Comment on above: Result Comment: Canc elled via OM: Order cancelled - Patient discharged Performed By: #### L 100.0500, L500.2500 #### [facility] [address] [place], [address] HGB Normal 12.0-15.0 [facility] Comment on above: Result Comment: Canc elled via OM: Order cancelled - Patient discharged Performed By: #### L 100.0500, L500.2500 #### [facility] [address] [place], [address] MCH Normal 27.0-32.0 [facility] Comment on above: Result Comment: Canc elled via OM: Order cancelled - Patient discharged Performed By: #### L 100.0500, L500.2500 #### [facility] [address] [place], [address] MCHC Normal 32-36 [facility] Comment on above: Result Comment: Canc elled via OM: Order cancelled - Patient discharged Performed By: #### L 100.0500, L500.2500 #### [facility] [address] [place], [address] MCV Normal 81-99 [facility] Comment on above: Result Comment: Canc elled via OM: Order cancelled - Patient discharged Performed By: #### L 100.0500, L500.2500 #### [facility] [address] [place], [address] PLT Normal 150-450 [facility] Comment on above: Result Comment: Canc elled via OM: Order cancelled - Patient discharged Performed By: #### L 100.0500, L500.2500 #### [facility] [address] [place], [address] RBC Normal 4.2-5.4 [facility] Comment on above: Result Comment: Canc elled via OM: Order cancelled - Patient discharged Performed By: #### L 100.0500, L500.2500 #### [facility] [address] [place], [address] RDW CV Normal 11.6-14.6 [facility] Comment on above: Result Comment: Canc elled via OM: Order cancelled - Patient discharged Performed By: #### L 100.0500, L500.2500 #### [facility] [address] [place], [address] RDW SD Normal 35.1-43.9 [facility] Comment on above: Result Comment: Canc elled via OM: Order cancelled - Patient discharged Performed By: #### L 100.0500, L500.2500 #### [facility] [address] [place], [address] WBC Normal 4.4-11.0 [facility] Comment on above: Result Comment: Canc elled via OM: Order cancelled - Patient discharged Performed By: #### L 100.0500, L500.2500 #### [facility] [address] [place], [address] Basic Metabolic Profile (BMP )on 09-10-2024 BUN Normal 7-18 [facility] Comment on above: Result Comment: Canc elled via OM: Order cancelled - Patient discharged Performed By: #### L 100.0500, L500.2500 #### [facility] [address] [place], [address] BUN/CRE Normal 10-20 [facility] Comment on above: Result Comment: Canc elled via OM: Order cancelled - Patient discharged Performed By: #### L 100.0500, L500.2500 #### [facility] [address] [place], [address] CA,Total Normal 8.5-10.1 [facility] Comment on above: Result Comment: Canc elled via OM: Order cancelled - Patient discharged Performed By: #### L 100.0500, L500.2500 #### [facility] [address] [place], [address] CL Normal 98-107 [facility] Comment on above: Result Comment: Canc elled via OM: Order cancelled - Patient discharged Performed By: #### L 100.0500, L500.2500 #### [facility] [address] [place], [address] CO2 Normal 21.0-32.0 [facility] Comment on above: Result Comment: Canc elled via OM: Order cancelled - Patient discharged Performed By: #### L 100.0500, L500.2500 #### [facility] [address] [place], [address] CREAT,SERUM Normal 0.55-1.02 [facility] Comment on above: Result Comment: Canc elled via OM: Order cancelled - Patient discharged Performed By: #### L 100.0500, L500.2500 #### [facility] [address] [place], [address] EST GFR Normal >60 [facility] Comment on above: Result Comment: Canc elled via OM: Order cancelled - Patient discharged Performed By: #### L 100.0500, L500.2500 #### [facility] [address] [place], [address] EST GFR - AA Normal >60 [facility] Comment on above: Result Comment: Canc elled via OM: Order cancelled - Patient discharged Performed By: #### L 100.0500, L500.2500 #### [facility] [address] [place], [address] GAP Normal 5-15 [facility] Comment on above: Result Comment: Canc elled via OM: Order cancelled - Patient discharged Performed By: #### L 100.0500, L500.2500 #### [facility] [address] [place], [address] GLU Normal 74-106 [facility] Comment on above: Result Comment: Canc elled via OM: Order cancelled - Patient discharged Performed By: #### L 100.0500, L500.2500 #### [facility] [address] [place], [address] Potassium Normal 3.5-5.1 [facility] Comment on above: Result Comment: Canc elled via OM: Order cancelled - Patient discharged Performed By: #### L 100.0500, L500.2500 #### [facility] [address] [place], [address] Basic Metabolic Profile (BMP) Normal 136-145 [facility] Comment on above: Result Comment: Canc elled via OM: Order cancelled - Patient discharged Performed By: #### L 100.0500, L500.2500 #### [facility] [address] [place], [address] CBC-Complete Blood Cnt No Di ffon 09-10-2024 HCT Normal 37-47 [facility] Comment on above: Result Comment: Canc elled via OM: Order cancelled - Patient discharged Performed By: #### L 100.0500, L500.2500 ####[facility] [address] [place], [address] HGB Normal 12.0-15.0 [facility] Comment on above: Result Comment: Canc elled via OM: Order cancelled - Patient discharged Performed By: #### L 100.0500, L500.2500 ####[facility] [address] [place], [address] MCH Normal 27.0-32.0 [facility] Comment on above: Result Comment: Canc elled via OM: Order cancelled - Patient discharged Performed By: #### L 100.0500, L500.2500 ####[facility] [address] [place], [address] MCHC Normal 32-36 [facility] Comment on above: Result Comment: Canc elled via OM: Order cancelled - Patient discharged Performed By: #### L 100.0500, L500.2500 ####[facility] [address] [place], [address] MCV Normal 81-99 [facility] Comment on above: Result Comment: Canc elled via OM: Order cancelled - Patient discharged Performed By: #### L 100.0500, L500.2500 ####[facility] [address] [place], [address] PLT Normal 150-450 [facility] Comment on above: Result Comment: Canc elled via OM: Order cancelled - Patient discharged Performed By: #### L 100.0500, L500.2500 ####[facility] [address] [place], [address] RBC Normal 4.2-5.4 [facility] Comment on above: Result Comment: Canc elled via OM: Order cancelled - Patient discharged Performed By: #### L 100.0500, L500.2500 ####[facility] [address] [place], [address] RDW CV Normal 11.6-14.6 [facility] Comment on above: Result Comment: Canc elled via OM: Order cancelled - Patient discharged Performed By: #### L 100.0500, L500.2500 ####[facility] [address] [place], [address] RDW SD Normal 35.1-43.9 [facility] Comment on above: Result Comment: Canc elled via OM: Order cancelled - Patient discharged Performed By: #### L 100.0500, L500.2500 ####[facility] [address] [place], [address] WBC Normal 4.4-11.0 [facility] Comment on above: Result Comment: Canc elled via OM: Order cancelled - Patient discharged Performed By: #### L 100.0500, L500.2500 ####[facility] [address] [place], [address] Basic Metabolic Profile (BMP )on 09-09-2024 BUN Normal 7-18 [facility] Comment on above: Result Comment: Canc elled via OM: Order cancelled - Patient discharged Performed By: #### L 100.0500, L500.2500 ####[facility] [address] [place], [address] BUN/CRE Normal 10-20 [facility] Comment on above: Result Comment: Canc elled via OM: Order cancelled - Patient discharged Performed By: #### L 100.0500, L500.2500 ####[facility] [address] [place], [address] CA,Total Normal 8.5-10.1 [facility] Comment on above: Result Comment: Canc elled via OM: Order cancelled - Patient discharged Performed By: #### L 100.0500, L500.2500 ####[facility] [address] [place], [address] CL Normal 98-107 [facility] Comment on above: Result Comment: Canc elled via OM: Order cancelled - Patient discharged Performed By: #### L 100.0500, L500.2500 ####[facility] [address] [place], [address] CO2 Normal 21.0-32.0 [facility] Comment on above: Result Comment: Canc elled via OM: Order cancelled - Patient discharged Performed By: #### L 100.0500, L500.2500 ####[facility] [address] [place], [address] CREAT,SERUM Normal 0.55-1.02 [facility] Comment on above: Result Comment: Canc elled via OM: Order cancelled - Patient discharged Performed By: #### L 100.0500, L500.2500 ####[facility] [address] [place], [address] EST GFR Normal >60 [facility] Comment on above: Result Comment: Canc elled via OM: Order cancelled - Patient discharged Performed By: #### L 100.0500, L500.2500 ####[facility] [address] [place], [address] EST GFR - AA Normal >60 [facility] Comment on above: Result Comment: Canc elled via OM: Order cancelled - Patient discharged Performed By: #### L 100.0500, L500.2500 ####[facility] [address] [place], [address] GAP Normal 5-15 [facility] Comment on above: Result Comment: Canc elled via OM: Order cancelled - Patient discharged Performed By: #### L 100.0500, L500.2500 ####[facility] [address] [place], [address] GLU Normal 74-106 [facility] Comment on above: Result Comment: Canc elled via OM: Order cancelled - Patient discharged Performed By: #### L 100.0500, L500.2500 ####[facility] [address] [place], [address] Potassium Normal 3.5-5.1 [facility] Comment on above: Result Comment: Canc elled via OM: Order cancelled - Patient discharged Performed By: #### L 100.0500, L500.2500 ####[facility] [address] [place], [address] Basic Metabolic Profile (BMP) Normal 136-145 [facility] Comment on above: Result Comment: Canc elled via OM: Order cancelled - Patient discharged Performed By: #### L 100.0500, L500.2500 ####[facility] [address] [place], [address] CBC-Complete Blood Cnt No Di ffon 09-09-2024 HCT Normal 37-47 [facility] Comment on above: Result Comment: Canc elled via OM: Order cancelled - Patient discharged Performed By: #### L 100.0500, L500.2500 ####[facility] [address] [place], [address] HGB Normal 12.0-15.0 [facility] Comment on above: Result Comment: Canc elled via OM: Order cancelled - Patient discharged Performed By: #### L 100.0500, L500.2500 ####[facility] [address] [place], [address] MCH Normal 27.0-32.0 [facility] Comment on above: Result Comment: Canc elled via OM: Order cancelled - Patient discharged Performed By: #### L 100.0500, L500.2500 ####[facility] [address] [place], [address] MCHC Normal 32-36 [facility] Comment on above: Result Comment: Canc elled via OM: Order cancelled - Patient discharged Performed By: #### L 100.0500, L500.2500 ####[facility] [address] [place], [address] MCV Normal 81-99 [facility] Comment on above: Result Comment: Canc elled via OM: Order cancelled - Patient discharged Performed By: #### L 100.0500, L500.2500 ####[facility] [address] [place], [address] PLT Normal 150-450 [facility] Comment on above: Result Comment: Canc elled via OM: Order cancelled - Patient discharged Performed By: #### L 100.0500, L500.2500 ####[facility] [address] [place], [address] RBC Normal 4.2-5.4 [facility] Comment on above: Result Comment: Canc elled via OM: Order cancelled - Patient discharged Performed By: #### L 100.0500, L500.2500 ####[facility] [address] [place], [address] RDW CV Normal 11.6-14.6 [facility] Comment on above: Result Comment: Canc elled via OM: Order cancelled - Patient discharged Performed By: #### L 100.0500, L500.2500 ####[facility] [address] [place], [address] RDW SD Normal 35.1-43.9 [facility] Comment on above: Result Comment: Canc elled via OM: Order cancelled - Patient discharged Performed By: #### L 100.0500, L500.2500 ####[facility] [address] [place], [address] WBC Normal 4.4-11.0 [facility] Comment on above: Result Comment: Canc elled via OM: Order cancelled - Patient discharged Performed By: #### L 100.0500, L500.2500 ####[facility] [address] [place], [address] Basic Metabolic Profile (BMP )on 09-08-2024 BUN Normal 7-18 [facility] Comment on above: Result Comment: Canc elled via OM: Order cancelled - Patient discharged Performed By: #### L 100.0500, L500.2500 ####[facility] [address] [place], [address] BUN/CRE Normal 10-20 [facility] Comment on above: Result Comment: Canc elled via OM: Order cancelled - Patient discharged Performed By: #### L 100.0500, L500.2500 ####[facility] [address] [place], [address] CA,Total Normal 8.5-10.1 [facility] Comment on above: Result Comment: Canc elled via OM: Order cancelled - Patient discharged Performed By: #### L 100.0500, L500.2500 ####[facility] [address] [place], [address] CL Normal 98-107 [facility] Comment on above: Result Comment: Canc elled via OM: Order cancelled - Patient discharged Performed By: #### L 100.0500, L500.2500 ####[facility] [address] [place], [address] CO2 Normal 21.0-32.0 [facility] Comment on above: Result Comment: Canc elled via OM: Order cancelled - Patient discharged Performed By: #### L 100.0500, L500.2500 ####[facility] [address] [place], [address] CREAT,SERUM Normal 0.55-1.02 [facility] Comment on above: Result Comment: Canc elled via OM: Order cancelled - Patient discharged Performed By: #### L 100.0500, L500.2500 ####[facility] [address] [place], [address] EST GFR Normal >60 [facility] Comment on above: Result Comment: Canc elled via OM: Order cancelled - Patient discharged Performed By: #### L 100.0500, L500.2500 ####[facility] [address] [place], [address] EST GFR - AA Normal >60 [facility] Comment on above: Result Comment: Canc elled via OM: Order cancelled - Patient discharged Performed By: #### L 100.0500, L500.2500 ####[facility] [address] [place], [address] GAP Normal 5-15 [facility] Comment on above: Result Comment: Canc elled via OM: Order cancelled - Patient discharged Performed By: #### L 100.0500, L500.2500 ####[facility] [address] [place], [address] GLU Normal 74-106 [facility] Comment on above: Result Comment: Canc elled via OM: Order cancelled - Patient discharged Performed By: #### L 100.0500, L500.2500 ####[facility] [address] [place], [address] Potassium Normal 3.5-5.1 [facility] Comment on above: Result Comment: Canc elled via OM: Order cancelled - Patient discharged Performed By: #### L 100.0500, L500.2500 ####[facility] [address] [place], [address] Basic Metabolic Profile (BMP) Normal 136-145 [facility] Comment on above: Result Comment: Canc elled via OM: Order cancelled - Patient discharged Performed By: #### L 100.0500, L500.2500 ####[facility] [address] [place], [address] CBC-Complete Blood Cnt No Di ffon 09-08-2024 HCT Normal 37-47 [facility] Comment on above: Result Comment: Canc elled via OM: Order cancelled - Patient discharged Performed By: #### L 100.0500, L500.2500 ####[facility] [address] [place], [address] HGB Normal 12.0-15.0 [facility] Comment on above: Result Comment: Canc elled via OM: Order cancelled - Patient discharged Performed By: #### L 100.0500, L500.2500 ####[facility] [address] [place], [address] MCH Normal 27.0-32.0 [facility] Comment on above: Result Comment: Canc elled via OM: Order cancelled - Patient discharged Performed By: #### L 100.0500, L500.2500 ####[facility] [address] [place], [address] MCHC Normal 32-36 [facility] Comment on above: Result Comment: Canc elled via OM: Order cancelled - Patient discharged Performed By: #### L 100.0500, L500.2500 ####[facility] [address] [place], [address] MCV Normal 81-99 [facility] Comment on above: Result Comment: Canc elled via OM: Order cancelled - Patient discharged Performed By: #### L 100.0500, L500.2500 ####[facility] [address] [place], [address] PLT Normal 150-450 [facility] Comment on above: Result Comment: Canc elled via OM: Order cancelled - Patient discharged Performed By: #### L 100.0500, L500.2500 ####[facility] [address] [place], [address] RBC Normal 4.2-5.4 [facility] Comment on above: Result Comment: Canc elled via OM: Order cancelled - Patient discharged Performed By: #### L 100.0500, L500.2500 ####[facility] [address] [place], [address] RDW CV Normal 11.6-14.6 [facility] Comment on above: Result Comment: Canc elled via OM: Order cancelled - Patient discharged Performed By: #### L 100.0500, L500.2500 ####[facility] [address] [place], [address] RDW SD Normal 35.1-43.9 [facility] Comment on above: Result Comment: Canc elled via OM: Order cancelled - Patient discharged Performed By: #### L 100.0500, L500.2500 ####[facility] [address] [place], [address] WBC Normal 4.4-11.0 [facility] Comment on above: Result Comment: Canc elled via OM: Order cancelled - Patient discharged Performed By: #### L 100.0500, L500.2500 ####[facility] [address] [place], [address] Basic Metabolic Profile (BMP )on 09-07-2024 BUN Normal 7-18 [facility] Comment on above: Result Comment: Canc elled via OM: Order cancelled - Patient discharged Performed By: #### L 100.0500, L500.2500 ####[facility] [address] [place], [address] BUN/CRE Normal 10-20 [facility] Comment on above: Result Comment: Canc elled via OM: Order cancelled - Patient discharged Performed By: #### L 100.0500, L500.2500 ####[facility] [address] [place], [address] CA,Total Normal 8.5-10.1 [facility] Comment on above: Result Comment: Canc elled via OM: Order cancelled - Patient discharged Performed By: #### L 100.0500, L500.2500 ####[facility] [address] [place], [address] CL Normal 98-107 [facility] Comment on above: Result Comment: Canc elled via OM: Order cancelled - Patient discharged Performed By: #### L 100.0500, L500.2500 ####[facility] [address] [place], [address] CO2 Normal 21.0-32.0 [facility] Comment on above: Result Comment: Canc elled via OM: Order cancelled - Patient discharged Performed By: #### L 100.0500, L500.2500 ####[facility] [address] [place], [address] CREAT,SERUM Normal 0.55-1.02 [facility] Comment on above: Result Comment: Canc elled via OM: Order cancelled - Patient discharged Performed By: #### L 100.0500, L500.2500 ####[facility] [address] [place], [address] EST GFR Normal >60 [facility] Comment on above: Result Comment: Canc elled via OM: Order cancelled - Patient discharged Performed By: #### L 100.0500, L500.2500 ####[facility] [address] [place], [address] EST GFR - AA Normal >60 [facility] Comment on above: Result Comment: Canc elled via OM: Order cancelled - Patient discharged Performed By: #### L 100.0500, L500.2500 ####[facility] [address] [place], [address] GAP Normal 5-15 [facility] Comment on above: Result Comment: Canc elled via OM: Order cancelled - Patient discharged Performed By: #### L 100.0500, L500.2500 ####[facility] [address] [place], [address] GLU Normal 74-106 [facility] Comment on above: Result Comment: Canc elled via OM: Order cancelled - Patient discharged Performed By: #### L 100.0500, L500.2500 ####[facility] [address] [place], [address] Potassium Normal 3.5-5.1 [facility] Comment on above: Result Comment: Canc elled via OM: Order cancelled - Patient discharged Performed By: #### L 100.0500, L500.2500 ####[facility] [address] [place], [address] Basic Metabolic Profile (BMP) Normal 136-145 [facility] Comment on above: Result Comment: Canc elled via OM: Order cancelled - Patient discharged Performed By: #### L 100.0500, L500.2500 ####[facility] [address] [place], [address] CBC-Complete Blood Cnt No Di ffon 09-07-2024 HCT Normal 37-47 [facility] Comment on above: Result Comment: Canc elled via OM: Order cancelled - Patient discharged Performed By: #### L 100.0500, L500.2500 ####[facility] [address] [place], [address] HGB Normal 12.0-15.0 [facility] Comment on above: Result Comment: Canc elled via OM: Order cancelled - Patient discharged Performed By: #### L 100.0500, L500.2500 ####[facility] [address] [place], [address] MCH Normal 27.0-32.0 [facility] Comment on above: Result Comment: Canc elled via OM: Order cancelled - Patient discharged Performed By: #### L 100.0500, L500.2500 ####[facility] [address] [place], [address] MCHC Normal 32-36 [facility] Comment on above: Result Comment: Canc elled via OM: Order cancelled - Patient discharged Performed By: #### L 100.0500, L500.2500 ####[facility] [address] [place], [address] MCV Normal 81-99 [facility] Comment on above: Result Comment: Canc elled via OM: Order cancelled - Patient discharged Performed By: #### L 100.0500, L500.2500 ####[facility] [address] [place], [address] PLT Normal 150-450 [facility] Comment on above: Result Comment: Canc elled via OM: Order cancelled - Patient discharged Performed By: #### L 100.0500, L500.2500 ####[facility] [address] [place], [address] RBC Normal 4.2-5.4 [facility] Comment on above: Result Comment: Canc elled via OM: Order cancelled - Patient discharged Performed By: #### L 100.0500, L500.2500 ####[facility] [address] [place], [address] RDW CV Normal 11.6-14.6 [facility] Comment on above: Result Comment: Canc elled via OM: Order cancelled - Patient discharged Performed By: #### L 100.0500, L500.2500 ####[facility] [address] [place], [address] RDW SD Normal 35.1-43.9 [facility] Comment on above: Result Comment: Canc elled via OM: Order cancelled - Patient discharged Performed By: #### L 100.0500, L500.2500 ####[facility] [address] [place], [address] WBC Normal 4.4-11.0 [facility] Comment on above: Result Comment: Canc elled via OM: Order cancelled - Patient discharged Performed By: #### L 100.0500, L500.2500 ####[facility] [address] [place], [address] CBC W/Diff, Automatedon 11-2 -2023 Absolute Lymph 4.78 X10 3/uL High 0.83-4.51 [facility] Comment on above: Performed By: #### L 500.2500, L100.0500 #### [facility] [address] [place], [address] Absolute Neut 5.9 X10 3/uL Normal 2.0-7.7 [facility] Comment on above: Performed By: #### L 500.2500, L100.0500 #### [facility] [address] [place], [address] Basophils/100 WBC (Bld) 0.7 % Normal 0-1 [facility] Comment on above: Performed By: #### L 500.2500, L100.0500 #### [facility] [address] [place], [address] Eosinophils/100 WBC (Bld) 2.7 % Normal 0-5 [facility] Comment on above: Performed By: #### L 500.2500, L100.0500 #### [facility] [address] [place], [address] Erythrocyte distribution width (RBC) [Ratio] 13.2 % Normal 11.6-14.6 [facility] Comment on above: Performed By: #### L 500.2500, L100.0500 #### [facility] [address] [place], [address] Hematocrit (Bld) [Volume fraction] 33.2 % Low 37-47 [facility] Comment on above: Performed By: #### L 500.2500, L100.0500 #### [facility] [address] [place], [address] Hemoglobin (Bld) [Mass/Vol] 10.8 g/dL Low 12.0-15.0 [facility] Comment on above: Performed By: #### L 500.2500, L100.0500 #### [facility] [address] [place], [address] IG% 0.700 Normal 0.0-0.9 [facility] Comment on above: Result Comment: IG% - Immature Granulocytes (promyelocytes, myelocytes and metamyelocytes) > 1% indicates that a LEFT SHIFT is Present. Performed By: #### L 500.2500, L100.0500 #### [facility] [address] [place], [address] Lymphocytes/100 WBC (Bld) 40.0 % Normal 19-41 [facility] Comment on above: Performed By: #### L 500.2500, L100.0500 #### [facility] [address] [place], [address] MCH (RBC) [Entitic mass] 27.6 pg Normal 27.0-32.0 [facility] Comment on above: Performed By: #### L 500.2500, L100.0500 #### [facility] [address] [place], [address] MCHC (RBC) [Mass/Vol] 32.5 g/dL Normal 32-36 [facility] Comment on above: Performed By: #### L 500.2500, L100.0500 #### [facility] [address] [place], [address] MCV (RBC) [Entitic vol] 84.7 fL Normal 81-99 [facility] Comment on above: Performed By: #### L 500.2500, L100.0500 #### [facility] [address] [place], [address] Monocytes/100 WBC (Bld) 7.1 % Normal 0-10 [facility] Comment on above: Performed By: #### L 500.2500, L100.0500 #### [facility] [address] [place], [address] Neutrophils/100 WBC (Bld) 48.8 % Normal 47-70 [facility] Comment on above: Performed By: #### L 500.2500, L100.0500 #### [facility] [address] [place], [address] Nucleated RBC (Bld) [#/Vol] 0 10*3/uL Normal 0-5 [facility] Comment on above: Performed By: #### L 500.2500, L100.0500 #### [facility] [address] [place], [address] Platelet mean volume (Bld) [Entitic vol] 9.5 fL Normal 6.2-12.0 [facility] Comment on above: Performed By: #### L 500.2500, L100.0500 #### [facility] [address] [place], [address] Platelets (Bld) [#/Vol] 383 10*3/uL Normal 150-450 [facility] Comment on above: Performed By: #### L 500.2500, L100.0500 #### [facility] [address] [place], [address] RBC (Bld) [#/Vol] 3.92 10*6/uL Low 4.2-5.4 [facility] Comment on above: Performed By: #### L 500.2500, L100.0500 #### [facility] [address] [place], [address] RDW SD 40.5 fl Normal 35.1-43.9 [facility] Comment on above: Performed By: #### L 500.2500, L100.0500 #### [facility] [address] [place], [address] WBC (Bld) [#/Vol] 12.0 10*3/uL High 4.4-11.0 [facility] Comment on above: Performed By: #### L 500.2500, L100.0500 #### [facility] [address] [place], [address] Comprehensive Metabolic Prof ilon 09-06-2024 Albumin [Mass/Vol] 2.9 g/dL Low 3.2-5.0 [facility] Comment on above: Performed By: #### L 500.2500, L100.0500 #### [facility] [address] [place], [address] Albumin/Globulin [Mass ratio] 0.7 {ratio} Low 0.9-2.4 [facility] Comment on above: Performed By: #### L 500.2500, L100.0500 #### [facility] [address] [place], [address] ALK P 70 U/L Normal 45-117 [facility] Comment on above: Performed By: #### L 500.2500, L100.0500 #### [facility] [address] [place], [address] ALT [Catalytic activity/Vol] 22 U/L Normal 13-56 [facility] Comment on above: Performed By: #### L 500.2500, L100.0500 #### [facility] [address] [place], [address] AST [Catalytic activity/Vol] 17 U/L Normal 15-37 [facility] Comment on above: Performed By: #### L 500.2500, L100.0500 #### [facility] [address] [place], [address] Bilirubin [Mass/Vol] 0.20 mg/dL Normal 0.20-1.00 [facility] Comment on above: Result Comment: For patients on eltrombopag therapy, use of Dimension [place] TBIL is not recommended. Performed By: #### L 500.2500, L100.0500 #### [facility] [address] [place], [address] BUN/CRE 24.5 RATIO High 10-20 [facility] Comment on above: Performed By: #### L 500.2500, L100.0500 #### [facility] [address] [place], [address] CA,Total 9.1 mg/dL Normal 8.5-10.1 [facility] Comment on above: Performed By: #### L 500.2500, L100.0500 #### [facility] [address] [place], [address] Chloride [Moles/Vol] 108 mmol/L High 98-107 [facility] Comment on above: Performed By: #### L 500.2500, L100.0500 #### [facility] [address] [place], [address] CO2 [Moles/Vol] 25.0 mmol/L Normal 21.0-32.0 [facility] Comment on above: Performed By: #### L 500.2500, L100.0500 #### [facility] [address] [place], [address] Creatinine [Mass/Vol] 0.74 mg/dL Normal 0.55-1.02 [facility] Comment on above: Result Comment: The validity of the calculated GFR GFRAA in patients over 70 years has not been determined. Clinical correlation is essential. Performed By: #### L 500.2500, L100.0500 #### [facility] [address] [place], [address] ECRCL 66.55 ml/min Normal [facility] Comment on above: Performed By: #### L 500.2500, L100.0500 #### [facility] [address] [place], [address] EST GFR - AA 104 mL/min Normal >60 [facility] Comment on above: Result Comment: Afri can Ugandan GFR Calc Performed By: #### L 500.2500, L100.0500 #### [facility] [address] [place], [address] GAP 7 Normal 5-15 [facility] Comment on above: Performed By: #### L 500.2500, L100.0500 #### [facility] [address] [place], [address] GFR/1.73 sq M.predicted among non-blacks MDRD (S/P/Bld) [Vol rate/Area] 86 mL/min/{1.73_m2} Normal >60 [facility] Comment on above: Result Comment: Non- GFR Calc Performed By: #### L 500.2500, L100.0500 #### [facility] [address] [place], [address] Globulin (S) [Mass/Vol] 3.9 g/dL Normal 2.2-4.2 [facility] Comment on above: Performed By: #### L 500.2500, L100.0500 #### [facility] [address] [place], [address] Glucose [Mass/Vol] 99 mg/dL Normal 74-106 [facility] Comment on above: Performed By: #### L 500.2500, L100.0500 #### [facility] [address] [place], [address] Potassium [Moles/Vol] 3.7 mmol/L Normal 3.5-5.1 [facility] Comment on above: Performed By: #### L 500.2500, L100.0500 #### [facility] [address] [place], [address] Sodium [Moles/Vol] 140 mmol/L Normal 136-145 [facility] Comment on above: Performed By: #### L 500.2500, L100.0500 #### [facility] [address] [place], [address] T PROT 6.8 g/dL Normal 6.4-8.2 [facility] Comment on above: Performed By: #### L 500.2500, L100.0500 #### [facility] [address] [place], [address] Urea nitrogen [Mass/Vol] 18 mg/dL Normal 7-18 [facility] Comment on above: Performed By: #### L 500.2500, L100.0500 #### [facility] [address] [place], [address] Consultation - Cardiologyon 09-06-2024 Consultation - Cardiology [facility] Medical Records Department [address] [place] [address] Consultation - Cardiology 09/06/24 1554 MR#: [id number] Acct: [id number] Name: SUHAS ABURTO Rep #: [id number] : 1965 59 From: Max Foley MD PCP: WESTON Pang Status:ADM IN Location: [place] [address] Assessment Plan Assessment/Plan (1) Hypertension: QUALIFIERS: Hypertension type: unspecified Qualified Code(s): I10 - Essential (primary) hypertension (2) Elevated troponin I level: PLAN: Plan 59-year-old patient cardo consultation requested to evaluate for mild elevation of high sensitive troponin Patient had episode of a fall evidently she was walking in front of the store and tripped on unlevel ground Evaluated in the hospital with EKG and noted also blood pressure was elevated when she came in. There was no neurological deficit on physical exam and CT was negative Nonspecific change was noted on the EKG sinus. And the cardiac biomarker mildly elevated she does not have any active chest pain She has been on treatment for hypertension Today her blood pressure 137/85 heart pulses regular her porter marina showed normal sinus rhythm. 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 Mild elevation of high sensitive troponins with no symptoms of chest pain. Cardiac care plan and recommendation From cardiac standpoint I would recommend follow-up with an event monitor and possibly evaluation with Lexiscyoly sestamibi which can be set up as an outpatient Patient to follow-up with the cardiology team at [facility]. Max Foley MD,FAC,[facility] HPI Consult Data Date of Consult: 09/06/24 HPI Narrative Reason for Consultation: Elevated troponin/fall possible presyncopal HPI Narrative: SUHAS ABURTO, is a 59 F who presents [facility] Medical History Anxiety and depression Osteoarthritis of left knee Cataract Arthritis GERD (gastroesophageal reflux disease) Vitamin D deficiency Overweight Anxiety Depression Hyperlipemia Anemia Hypertension Abnormal EKG Chest pain Home Medications ???Medication ???Instructions ???Recorded ???Last Taken ???Type ascorbic acid (vitamin C) 500 mg 500 mg PO DAILY 12/29/19 09/04/24 History tablet acetaminophen 500 mg tablet 500 - 1,000 mg (1 - 2 x 500 mg) PO 07/11/22 Unknown Rx TID-QID PRN fever or pain #60 tabs atenolol 25 mg tablet 25 mg PO QDAY #30 tabs 01/08/24 09/04/24 Rx cholecalciferol (vitamin D3) 25 1,000 unit PO QDAY #30 caps 01/08/24 09/04/24 Rx mcg (1,000 unit) capsule loratadine 10 mg tablet 10 mg PO QDAY PRN allergy symptoms 01/08/24 09/04/24 Rx #30 tabs ibuprofen 600 mg tablet 600 mg PO TID-QID PRN pain #30 tabs 06/17/24 09/05/24 Rx fluoxetine 20 mg capsule 20 mg PO DAILY 09/05/24 09/04/24 History Allergy/AdvReac Type Severity Reaction Status Date / Time atorvastatin (From Lipitor) Allergy Severe Bad skin Verified 09/05/24 14:12 reaction Sulfa (Sulfonamide Allergy Unknown Verified 09/05/24 14:12 Antibiotics) Family History Brother , age 55 or 56 Myocardial infarction Sudden cardiac Brother , 55 or 56 , from liver failure CAD (coronary artery disease) S/P CABG (coronary artery bypass graft) Liver failure Mother Cancer throat Surgical History History of wisdom tooth extraction, class IV edentulism History of Social History household members: family number of children: 3 current occupational status: unemployed pets and animals: No other: Patient has 1 child and 2 stepchildren Smoking Status: Never smoker alcohol intake: never substance use type: does not use caffeine: Yes what type of physical activity do you participate in: none seatbelt use: always do you feel safe at home: Yes additional social history: - Ragvinder Physical Exam Cardio Cardio Narrative: Patient seen and evaluated at bedside along with her family and the nursing staff Comfortable does not have any symptoms sitting out in a chair peripheral equipment operator showed underlying normal sinus Card exam S1-S2 is regular Chest exam clear auscultation bilateral Examination lower extremity no lower extremity edema. Pedal pulses palpable. Risk Stratification Risk Stratification Applicable: No Objective Data Vital Signs: Vital Signs Temp Pulse Resp BP Pulse Ox O2 Del Method 98.2 F 91 12 137/85 H 100 Room Air 09/06/24 14:28 09/06/24 14:28 09/06/24 14: (more content not included)... Normal [facility] Discharge Instructionon 08-16 Discharge Instruction [facility] Medical Records Department [address] [place] [address] Instructions for Home/Discharge Instructions 09/06/24 1600 MR#: [id number] Acct: [id number] Name: SUHAS ABURTO Rep #: [id number] : 1965 59 From: Samaria Alvarado MD PCP: WESTON Pang Status:ADM IN Discharge Instructions Diet Discharge Diet: No restrictions DC O2, CPAP, BIPAP needs Additional Home O2 Discharge instructions: No Dressing / Incision Discharge Activity: - (Increase activity as tolerated) Follow Up Care Test Results: Test results from this visit will be discussed in further detail at your follow-up appointment, if applicable. Discharge Plan Admission Admit Date/Time: 09/05/24 18:29 Primary Reason for Your Visit: Fall Attending Provider: Samaria Alvarado Primary Care Provider: Nora Robertson NP Consulting Providers: Max Foley; Gregoria Ambrocio Instructions Patient Instructions: ED Fall Prevention Additional Instructions / Restrictions: DISCHARGE INSTRUCTIONS PLEASE READ -Please follow-up with the cardiology office in 1 week. Please call their office on Sunday ) to schedule your follow-up appointment. You will be set up with a temporary heart monitor at your follow-up appointment -Please call your primary care provider's office upon discharge to schedule a hospital follow up within 1 week. -For any concerning signs or symptoms please call 911 or proceed to the nearest emergency department Discharge Orders/Prescriptions Prescriptions: Continued ascorbic acid (vitamin C) 500 mg tablet 500 mg PO DAILY acetaminophen 500 mg tablet 500 - 1,000 mg PO TID-QID PRN (Reason: fever or pain) Qty: 60 0RF atenolol 25 mg tablet 25 mg PO QDAY Qty: 30 0RF loratadine 10 mg tablet 10 mg PO QDAY PRN (Reason: allergy symptoms) Qty: 30 0RF cholecalciferol (vitamin D3) 25 mcg (1,000 unit) capsule 1,000 unit PO QDAY Qty: 30 0RF ibuprofen 600 mg tablet 600 mg PO TID-QID PRN (Reason: pain) Qty: 30 0RF fluoxetine 20 mg capsule 20 mg PO DAILY Referrals / Follow Up: Vishal Ospina MD [Med Staff - Active Staff] - ( -Please follow-up with the cardiology office upon discharge. Please call their office to schedule hospital follow-up appointment upon discharge.) Nora Robertson NP, [employer]NALY[employer] [Primary Care Provider] - Within 1 Week Disposition Disposition (needs filled in before D/C Order can be placed): Home, Self Care 09/06/24 1602 Samaria Alvarado MD CC: WESTON Robertson; Dr. Max Foley MD; Dr. Gregoria Ambrocio, DO Signed Normal [facility] Extremity Upper without Cont raon 09-06-2024 Extremity Upper without Contra [facility] Imaging Services [address] [place] [address] Extremity Upper without Contra MR#: [id number] Acct: [id number] Name: SUHAS ABURTO Rep #: [id number] : 1965 F 59 From: Jeromy Hansen MD PCP: WESTON Pang Status: ADM IN Study: Extremity Upper without Contra Date of Exam: 11/06/23 Exam# [id number] Ordering Dr: Manish Fernandez DO [id number] STUDY: CT RIGHT SHOULDER REASON FOR EXAM: Female, 59 years old. Acute pain after fall RADIATION DOSAGE (If Supplied By Facility): CTDIvol = ( 24.96 ) mGy, DLP = ( 488.08 ) mGycm TECHNIQUE: The patient was scanned in a multi detector CT scanner. High resolution transaxial imaging was performed without the administration of intravenous contrast material. Sagittal and coronal images were reconstructed. Individualized dose optimization techniques were used for this CT. COMPARISON: None. FINDINGS: Normal glenohumeral articulation. Normal glenoid rim, neck and visualized scapula. Normal humeral head, neck and tuberosities. Normal coracoid process. Normal visualized lateral clavicle. There is mild osteoarthritis with articular joint space narrowing. There is a Type II morphology (curved), with a neutral orientation. Normal visualized muscles and soft tissue structures. CT/Extremity Upper without Contra IMPRESSION: No demonstrated fracture or suspicious osseous lesion Anatomic alignment and preservation of the glenohumeral joint space Mild narrowing of the acromioclavicular joint space No upper rib fracture or pneumothorax No suspicious soft tissue swelling Electronically Signed: Ld Hansen MD at 8:24 EST , CC: WESTON Robertson; Dr. 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 Comment on above: Result Comment: <200 mg/dL Desirable 200-240 mg/dL Borderline >240 mg/dL High Risk Performed By: #### L 500.2500, L100.0500 #### [facility] [address] [place], [address] Cholesterol in HDL [Mass/Vol] 42 mg/dL Normal [facility] Comment on above: Result Comment: The drugs N-Acetylcysteine and Metamizole may falsely depress this assay. Reference Range HDL <40 mg/dL Low HDL Cholesterol HDL >or= 60 mg/dL High HDL Cholesterol Performed By: #### L 500.2500, L100.0500 #### [facility] [address] [place], [address] Cholesterol in LDL [Mass/Vol] 121 mg/dL Normal 0-130 [facility] Comment on above: Performed By: #### L 500.2500, L100.0500 #### [facility] [address] [place], [address] Cholesterol in VLDL [Mass/Vol] 36 mg/dL Normal 5-40 [facility] Comment on above: Performed By: #### L 500.2500, L100.0500 #### [facility] [address] [place], [address] Triglyceride [Mass/Vol] 180 mg/dL Normal [facility] Comment on above: Result Comment: The drugs N-Acetylcysteine and Metamizole may falsely depress this assay. Serum Triglycerides Reference Interval Normal <150 mg/dL Borderline high 150 - 199 mg/dL High 200 - 499 mg/dL Very High > or = 500 mg/dL Performed By: #### L 500.2500, L100.0500 #### [facility] [address] [place], [address] Magnesiumon 09-06-2024 Magnesium [Mass/Vol] 2.0 mg/dL Normal 1.6-2.6 [facility] Comment on above: Performed By: #### L 500.2500, L100.0500 #### [facility] [address] [place], [address] Partial Thromboplast Timeon 09-06-2024 aPTT Coag (Bld) [Time] 62.3 s High 24.1-36.[address] [facility] Comment on above: Order Comment: Comme nts: heparin gtt, time sensitive Performed By: #### L 300.4310 #### [facility] [address] [place], [address] aPTT Coag (Bld) [Time] 66.8 s High 24.1-36.[address] [facility] Comment on above: Order Comment: Comme nts: heparin gtt, time sensitive Performed By: #### L 300.4310 ####[facility] [address] [place], [address] Phosphoruson 09-06-2024 Phosphate [Mass/Vol] 4.5 mg/dL Normal 2.5-4.9 [facility] Comment on above: Performed By: #### L 500.2500, L100.0500 #### [facility] [address] [place], [address] Thyroid Stim Hormone (TSH)on 09-06-2024 TSH 3.500 uIU/mL Normal 0.358-3.740 [facility] Comment on above: Performed By: #### L 500.2500, L100.0500 #### [facility] [address] [place], [address] 12 Lead EKGon 09-05-2024 12 Lead EKG [facility] Cardiovascular Services [address] [place] [address] 12 Lead EKG 09/05/24 1942 MR#: [id number] Acct: [id number] Name: SUHAS ABURTO Rep #: [id number] : 1965 59 From: Baltazar Hoang MD Attending Dr: Dr. Samaria Alvarado MD Status: DIS IN Ordering Dr: Gregoria Ambrocio DO Date: 09/05/24 Location: U Sex: F N Admitted: 09/05/24 Test Reason : NSTEMI Blood Pressure : */* mmHG Vent. Rate : 77 BPM Atrial Rate : 77 BPM P-R Int : 162 ms QRS Dur : 86 ms QT Int : 374 ms P-R-T Axes : 59 -16 24 degrees QTcB Int : 423 ms Normal sinus rhythm Minimal voltage criteria for LVH, may be normal variant ( R in aVL ) Borderline ECG When compared with ECG of 05-Sep-2024 14:20, MANUAL COMPARISON REQUIRED DATA IS UNCONFIRMED Confirmed by Baltazar Hoang ([id number]), index editor DANG MCCAIN ([id number]) on 09/08/2024 9:58:05 AM Referred By: Confirmed By: Baltazar Hoang 09/08/24 0958 Date Baltazar Hoang MD CC: WESTON Robertson; Dr. Gregoria Ambrocio DO; Dr. Samaria Alvarado MD Signed Normal [facility] 12 Lead EKG [facility] Cardiovascular Services [address] [place] [address] 12 Lead EKG 09/05/24 1420 MR#: [id number] Acct: [id number] Name: SUHAS ABURTO Rep #: [id number] : 1965 59 From: Baltazar Hoang MD Attending Dr: Dr. Samaria Alvarado MD Status: DIS IN Ordering Dr: Viry Barnard DO Date: 09/05/24 Location: [facility] Sex: F N Admitted: 09/05/24 Test Reason : SYNCOPE Blood Pressure : */* mmHG Vent. Rate : 71 BPM Atrial Rate : 71 BPM P-R Int : 166 ms QRS Dur : 88 ms QT Int : 392 ms P-R-T Axes : 62 -4 25 degrees QTcB Int : 425 ms Normal sinus rhythm Normal ECG Confirmed by Baltazar Hoang ([id number]), index editor DANG MCCAIN ([id number]) on 09/08/2024 6:24:31 AM Referred By: CG Confirmed By: Baltazar Hoang 09/08/24 0624 Date Baltazar Hoang MD CC: [employer] Nora Robertson; Dr. Viry Barnard DO; Dr. Samaria Alvarado MD Signed Normal [facility] Brain/Head without Contrasto n 09-05-2024 Brain/Head without Contrast [facility] Imaging Services [address] [place] [address] Brain/Head without Contrast MR#: [id number] Acct: [id number] Name: SUHAS ABURTO Rep #: [id number] : 1965 F 59 From: Bradley betancourt MD PCP: WESTON Pang Status: REG ER Study: Brain/Head without Contrast Date of Exam: 08/16 12/08 Exam# [id number] Ordering Dr: Viry Barnard DO [id number] STUDY: CT BRAIN WITHOUT CONTRAST REASON FOR EXAM: Female, 59 years old. Fall, AMS RADIATION DOSAGE (If Supplied By Facility): CTDIvol = ( 47.06 ) mGy, DLP = ( 837.39 ) mGycm TECHNIQUE: Transaxial CT imaging of the brain was performed without administration of intravenous contrast material. Individualized dose optimization techniques were used for this CT. COMPARISON: Comparison is made with prior study dated September 24, 2017. FINDINGS: Normal soft tissue structures. Normal calvarium. Normal size ventricles and extra-axial spaces for the patient''s age. Normal white matter tracts of the cerebral hemispheres. Normal basal ganglia and thalami. Normal brainstem. Normal cerebellum. There is no intracranial hemorrhage. There are no findings of an acute ischemic infarction. Normal visualized paranasal sinuses. CT/Brain/Head without Contrast IMPRESSION: Normal unenhanced CT scan of the brain. Electronically Signed: Bradley Ferrara MD at 14:55 EST , CC: WESTON Robertson; Dr. 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 Performed By: #### L 500.2500, L100.0500 #### [facility] [address] [place], [place], [address] Chest 1 View (Portable)on Chest 1 View (Portable) [facility] Imaging Services [address] [place], [place] [address] Chest 1 View (Portable) MR#: [id number] Acct: [id number] Name: SUHAS ABURTO Rep #: [id number] : 1965 F 59 From: Bradley betancourt MD PCP: WESTON Pang Status: REG ER Study: Chest 1 View (Portable) Date of Exam: 09/05/24 Exam# [id number] Ordering Dr: Viry Barnard DO [id number] STUDY: X-RAY CHEST REASON FOR EXAM: Female, 59 years old. Fall , weakness TECHNIQUE: Single AP portable view of the chest. COMPARISON: Comparison is made with prior study dated September 24, 2017. FINDINGS: EKG electrodes are seen. The lungs are clear and expanded. There is no demonstrated pleural abnormality. Normal size heart. Normal mediastinum and gabriela. Normal visualized pulmonary arteries. Normal visualized aortic arch and descending thoracic aorta. There are degenerative changes of the visualized thoracic spine. Normal visualized ribs, clavicles, and shoulders. There is no demonstrated abnormality of the visualized soft tissue structures of the upper abdomen. RAD/Chest 1 View (Portable) IMPRESSION: Normal x-ray examination of the chest. Electronically Signed: Brdaley Ferrara MD at 15:08 EST Reading Location ID and State: [address] [place] [address] , Service support , CC: WESTON Robertson; Dr. 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 Comment on above: Order Comment: 1Y Performed By: #### L 500.2500, L100.0500 #### [facility] [address] [place], [address] Albumin/Globulin [Mass ratio] 0.9 {ratio} Normal 0.9-2.4 [facility] Comment on above: Order Comment: 1Y Performed By: #### L 500.2500, L100.0500 #### [facility] [address] [place], [address] ALK P 85 U/L Normal 45-117 [facility] Comment on above: Order Comment: 1Y Performed By: #### L 500.2500, L100.0500 #### [facility] [address] [place], [address] ALT [Catalytic activity/Vol] 25 U/L Normal 13-56 [facility] Comment on above: Order Comment: 1Y Performed By: #### L 500.2500, L100.0500 #### [facility] [address] [place], [address] AST [Catalytic activity/Vol] 22 U/L Normal 15-37 [facility] Comment on above: Order Comment: 1Y Performed By: #### L 500.2500, L100.0500 #### [facility] [address] [place], [address] Bilirubin [Mass/Vol] 0.20 mg/dL Normal 0.20-1.00 [facility] Comment on above: Order Comment: 1Y Result Comment: For patients on eltrombopag therapy, use of Dimension [place] TBIL is not recommended. Performed By: #### L 500.2500, L100.0500 #### [facility] [address] [place], [address] BUN/CRE 18.1 RATIO Normal 10-20 [facility] Comment on above: Order Comment: 1Y Performed By: #### L 500.2500, L100.0500 #### [facility] [address] [place], [address] CA,Total 9.5 mg/dL Normal 8.5-10.1 [facility] Comment on above: Order Comment: 1Y Performed By: #### L 500.2500, L100.0500 #### [facility] [address] [place], [address] Chloride [Moles/Vol] 106 mmol/L Normal 98-107 [facility] Comment on above: Order Comment: 1Y Performed By: #### L 500.2500, L100.0500 #### [facility] [address] [place], [address] CO2 [Moles/Vol] 22.0 mmol/L Normal 21.0-32.0 [facility] Comment on above: Order Comment: 1Y Performed By: #### L 500.2500, L100.0500 #### [facility] [address] [place], [address] Creatinine [Mass/Vol] 0.78 mg/dL Normal 0.55-1.02 [facility] Comment on above: Order Comment: 1Y Result Comment: The validity of the calculated GFR GFRAA in patients over 70 years has not been determined. Clinical correlation is essential. Performed By: #### L 500.2500, L100.0500 #### [facility] [address] [place], [address] ECRCL 64.80 ml/min Normal [facility] Comment on above: Order Comment: 1Y Performed By: #### L 500.2500, L100.0500 #### [facility] [address] [place], [address] EST GFR - AA 98 mL/min Normal >60 [facility] Comment on above: Order Comment: 1Y Result Comment: Afri can Ugandan GFR Calc Performed By: #### L 500.2500, L100.0500 #### [facility] [address] [place], [address] GAP 7 Normal 5-15 [facility] Comment on above: Order Comment: 1Y Performed By: #### L 500.2500, L100.0500 #### [facility] [address] [place], [address] GFR/1.73 sq M.predicted among non-blacks MDRD (S/P/Bld) [Vol rate/Area] 81 mL/min/{1.73_m2} Normal >60 [facility] Comment on above: Order Comment: 1Y Result Comment: Non- GFR Calc Performed By: #### L 500.2500, L100.0500 #### [facility] [address] [place], [address] Globulin (S) [Mass/Vol] 4.2 g/dL Normal 2.2-4.2 [facility] Comment on above: Order Comment: 1Y Performed By: #### L 500.2500, L100.0500 #### [facility] [address] [place], [address] Glucose [Mass/Vol] 99 mg/dL Normal 74-106 [facility] Comment on above: Order Comment: 1Y Performed By: #### L 500.2500, L100.0500 #### [facility] [address] [place], [address] Potassium [Moles/Vol] 3.7 mmol/L Normal 3.5-5.1 [facility] Comment on above: Order Comment: 1Y Performed By: #### L 500.2500, L100.0500 #### [facility] [address] [place], [address] Sodium [Moles/Vol] 136 mmol/L Normal 136-145 [facility] Comment on above: Order Comment: 1Y Performed By: #### L 500.2500, L100.0500 #### [facility] [address] [place], [address] T PROT 7.9 g/dL Normal 6.4-8.2 [facility] Comment on above: Order Comment: 1Y Performed By: #### L 500.2500, L100.0500 #### [facility] [address] [place], [address] Urea nitrogen [Mass/Vol] 14 mg/dL Normal 7-18 [facility] Comment on above: Order Comment: 1Y Performed By: #### L 500.2500, L100.0500 #### [facility] [address] [place], [address] Echo Complete W/ Contraston 09-05-2024 Echo Complete W/ Contrast [facility] Services [address] [place] [address] Echo Complete W/ Contrast 09/06/24 1110 MR#: [id number] Acct: [id number] Name: SUHAS ABURTO Rep #: [id number] : 1965 59 From: Max Foley MD Attending Dr: Dr. Samaria Alvarado MD Status: ADM IN Ordering Dr: Gregoria Ambrocio DO Date: 09/05/24 Location: [facility] Sex: F N Admitted: 09/05/24 Reason For Study: Chest Pain Procedure This was a 2D Doppler, Color Flow transthoracic echocardiogram. Contrast injection was performed. Exam performed portable in patient room. Left Ventricle Normal left ventricle. The estimated ejection fraction is 55-60 %. Right Ventricle Normal right ventricle. Normal systolic function. Atria Normal left atrium. Normal right atrium. Mitral Valve The mitral valve is structurally normal. No prolapse or stenosis seen. Mild (1+) mitral valve insufficiency. Tricuspid Valve Normal tricuspid valve. Mild tricuspid valve insufficiency. Aortic Valve Trisinus/trileaflet aortic valve. Pulmonic Valve The pulmonic valve is not well visualized. Great Vessels Normal aortic root. Pericardium/Pleural No pericardial effusion. Medication Diluted definity 1.5ml given slow IV push to enhance endocardial definition. MMode/2D Measurements Calculations LVIDd: 4.2 cm IVSd: 0.84 cm asc Aorta Diam: 3.0 cm LVIDs: 2.9 cm LVPWd: 0.73 cm RVDd: 2.3 cm FS: 31.0 % LAV(MOD-bp): 20.8 ml LVAd ap4: 20.6 cm2 SV(MOD-sp4): 29.9 ml LAV(MOD-bp) Indexed: 12.9 ml/m2 LVLd ap4: 6.8 cm SI(MOD-sp4): 18.6 ml/m2 LAV(MOD-sp2): 22.7 ml EDV(MOD-sp4): 51.2 ml LAV(MOD-sp4): 17.9 ml EDV(sp4-el): 52.8 ml LVAs ap4: 11.6 cm2 LVLs ap4: 5.4 cm ESV(MOD-sp4): 21.3 ml ESV(sp4-el): 21.2 ml EF(MOD-sp4): 58.4 % EF(sp4-el): 59.9 % SV(sp4-el): 31.7 ml LA A4 area: 9.6 cm2 LA dimension(2D): 2.9 cm RA A4 area: 6.9 cm2 TAPSE: 2.3 cm Time Measurements MV dec time: 0.15 sec Doppler Measurements Calculations MV E max destiny: 77.6 cm/sec Lat Peak E' Destiny: 10.7 cm/sec Med Peak E' Destiny: 9.2 cm/sec MV A max destiny: 82.8 cm/sec E/E' lat: 7.3 E/E' med: 8.5 MV E/A: 0.94 MV dec slope: 529.7 cm/sec2 Ao V2 max: 137.3 cm/sec LV V1 max: 105.1 cm/sec Ao max P.6 mmHg LV V1 max P.4 mmHg Ao V2 mean: 91.3 cm/sec Ao mean P.9 mmHg Ao V2 VTI: 29.6 cm PA V2 max: 89.4 cm/sec TR max destiny: 252.3 cm/sec TR max P.5 mmHg ECHO/Echo Complete W/ Contrast Interpretation Summary The estimated ejection fraction is 55-60 %. Normal LV systolic function Mild TR Mild MR Contrast echo used Definity Comparison to previous echo no significant change. Ordering Physician: Gregoria Ambrocio Referring Physician: Nora Robertson Performed By: Marie Redman, TRAY, RVT 09/06/24 1320 Date Max Foley MD CC: WESTON Robertson; Dr. Gregoria Ambrocio DO; Dr. 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 Normal [facility] Emergency Department Summary on 09-05-2024 Emergency Department Summary [facility] Medical Records Department [address] [place] [address] Emergency Department Summary 09/05/24 MR#: [id number] Acct: [id number] Name: SUHAS ABURTO Rep #: [id number] : 1965 59 From: Viry Barnard DO PCP: WESTON Pang Status:ADM IN Location: [place] [address] HPI History of Present Illness Chief Complaint: Unresponsive Informant: patient and EMS Narrative Narrative: Patient is a 59-year-old female with history of hypertension, osteoarthritis of her knees, anemia, anxiety and depression presenting via EMS after a fall. Per EMS report patient was found on the ground in front of a store. They states she is very out of it. Is unclear if she lost consciousness or what led to the fall. She is complaining of knee pain and EMS felt that she had some left hip pain. Is not clear if she hit her head. Patient states she is not any blood thinners. Patient's blood sugar was 99 per EMS. They state her initial blood pressure was 200/100 and her pupils were sluggish. They brought her in for further evaluation. Patient is answering questions slowly but just states to call my . No other complaints or concerns reported at this time. [facility] Medical History Anxiety and depression Osteoarthritis of left knee Cataract Arthritis GERD (gastroesophageal reflux disease) Vitamin D deficiency Overweight Anxiety Depression Hyperlipemia Anemia Hypertension Abnormal EKG Chest pain Home Medications ???Medication ???Instructions ???Recorded ???Last Taken ???Type ascorbic acid (vitamin C) 500 mg 500 mg PO DAILY 12/29/19 09/04/24 History tablet acetaminophen 500 mg tablet 500 - 1,000 mg (1 - 2 x 500 mg) PO 07/11/22 Unknown Rx TID-QID PRN fever or pain #60 tabs atenolol 25 mg tablet 25 mg PO QDAY #30 tabs 01/08/24 09/04/24 Rx cholecalciferol (vitamin D3) 25 1,000 unit PO QDAY #30 caps 01/08/24 09/04/24 Rx mcg (1,000 unit) capsule loratadine 10 mg tablet 10 mg PO QDAY PRN allergy symptoms 01/08/24 09/04/24 Rx #30 tabs ibuprofen 600 mg tablet 600 mg PO TID-QID PRN pain #30 tabs 06/17/24 09/05/24 Rx fluoxetine 20 mg capsule 20 mg PO DAILY 09/05/24 09/04/24 History Allergy/AdvReac Type Severity Reaction Status Date / Time atorvastatin (From Lipitor) Allergy Severe Bad skin Verified 09/05/24 14:12 reaction Sulfa (Sulfonamide Allergy Unknown Verified 09/05/24 14:12 Antibiotics) Family History Brother , age 55 or 56 Myocardial infarction Sudden cardiac Brother , 55 or 56 , from liver failure CAD (coronary artery disease) S/P CABG (coronary artery bypass graft) Liver failure Mother Cancer throat Surgical History History of wisdom tooth extraction, class IV edentulism History of Social History household members: family number of children: 3 current occupational status: unemployed pets and animals: No other: Patient has 1 child and 2 stepchildren Smoking Status: Never smoker alcohol intake: never substance use type: does not use caffeine: Yes what type of physical activity do you participate in: none seatbelt use: always do you feel safe at home: Yes additional social history: - Shun ROS ROS ED Review of Systems ROS Unobtainable: due to mental status Constitutional Constitutional ED: Denies chills or fever(s) Musculoskeletal Musculoskeletal: Reports other Details: Bilateral knee pain Neurologic Neurologic: Denies paresthesias or weakness Psychiatric Psychiatric: Reports anxiety Endocrine Endocrinology: Denies other Hematologic/Lymphatic Hematologic/Lymphatic : Denies easy bleeding or easy bruising EXAM Physical Exam Const Vital Signs: 09/05/24 14:08 09/05/24 14:33 09/05/24 15:07 Temperature 97.7 F L Temperature Source Oral Pulse Rate 74 59 L Respiratory Rate 16 18 Respiratory Pattern Tachypnea Blood Pressure 123/102 H 166/82 H Blood Pressure Mean 109 110 Pulse Ox 99 99 Oxygen Delivery Method Room Air Room Air 09/05/24 16:00 09/05/24 17:00 09/05/24 18:00 Temperature Temperature Source Pulse Rate 70 64 74 Respiratory Rate 17 16 16 Respiratory Pattern Blood Pressure 140/79 H 121/81 H 163/80 H Blood Pressure Mean 99 94 107 Pulse Ox 98 99 99 Oxygen Delivery Method Room Air Room Air Room Air Positive well nourished and well developed General Appearance ED: well developed and NAD HEENT Reports TM's clear and moist mucous membranes Negative for trauma Tympanic Membrane ED: Yes TM's clear Eyes PERRL and EOMs inta (more content not included)... Normal [facility] H AND P Exam - Hospitaliston 09-05-2024 H&P Exam - Hospitalist [facility] Medical Records Department [address] [place] [address] H P Exam - Hospitalist 09/05/24 1828 MR#: [id number] Acct: [id number] Name: SUHAS ABURTO Rep #: [id number] : 1965 59 From: Gregoria Ambrocio DO PCP: WESTON Pang Status:ADM IN Location: [facility] [id number] HPI - General General Date of Admission: 09/05/24 Date of Service: 09/05/24 Chief Complaint: syncope HPI Narrative SUHAS ABURTO, is a 59 F who presented to the emergency department at [facility] on 09/05/2020 for due to an unresponsive episode. Patient reported that she was walking out in front of a store and was with the salesman and tripped on unlevel ground. She hit her knees and her shoulder and she stated that a store mining captain told her to lie on the ground and she called the ambulance. It does not sound as if she hit her head. On presentation she was complaining of some right shoulder discomfort, right knee pain and some left hip pain. She did not indicate she hit her head. However it was reported that she was very out of it and appeared awake but not interactive. Blood sugar per EMS was 99 but her initial blood pressure was 200/100 and her pupils were sluggish at that time. By the time of arrival she was answering questions and had no complaints. She denied any occurrence of chest pain or shortness of breath. She has no cardiac history and states she has no family cardiac history. She is a lifelong non-smoker. She does have a robust family history of coronary disease in both her brothers. Vital signs on presentation the emergency department showed temperature 97.7, heart rate 74, respiratory rate 16, blood pressure was 123/102 and pulse ox was 99% on room air. CBC showed a mild leukocytosis with white count of 11.2 but was otherwise unremarkable. Coags are normal. Chemistry panel was unremarkable. Lactic acid was 1.4. Liver function was normal. Initial troponin was 9 but repeat troponin was 94. EKG showed sinus rhythm with no ST-T wave changes concerning for acute ischemia and normal intervals. CT of the brain was normal. Chest x-ray was negative for any acute findings. 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 Given her unresponsive episode and troponin bump it was felt prudent to admit her to the hospital. [facility] Medical History Anxiety and depression Osteoarthritis of left knee Cataract Arthritis GERD (gastroesophageal reflux disease) Vitamin D deficiency Overweight Anxiety Depression Hyperlipemia Anemia Hypertension Abnormal EKG Chest pain Home Medications ???Medication ???Instructions ???Recorded ???Last Taken ???Type ascorbic acid (vitamin C) 500 mg 500 mg PO DAILY 12/29/19 09/04/24 History tablet acetaminophen 500 mg tablet 500 - 1,000 mg (1 - 2 x 500 mg) PO 07/11/22 Unknown Rx TID-QID PRN fever or pain #60 tabs atenolol 25 mg tablet 25 mg PO QDAY #30 tabs 01/08/24 09/04/24 Rx cholecalciferol (vitamin D3) 25 1,000 unit PO QDAY #30 caps 01/08/24 09/04/24 Rx mcg (1,000 unit) capsule loratadine 10 mg tablet 10 mg PO QDAY PRN allergy symptoms 01/08/24 09/04/24 Rx #30 tabs ibuprofen 600 mg tablet 600 mg PO TID-QID PRN pain #30 tabs 06/17/24 09/05/24 Rx fluoxetine 20 mg capsule 20 mg PO DAILY 09/05/24 09/04/24 History Allergy/AdvReac Type Severity Reaction Status Date / Time atorvastatin (From Lipitor) Allergy Severe Bad skin Verified 09/05/24 14:12 reaction Sulfa (Sulfonamide Allergy Unknown Verified 09/05/24 14:12 Antibiotics) Family History Brother , age 55 or 56 Myocardial infarction Sudden cardiac Brother , 55 or 56 , from liver failure CAD (coronary artery disease) S/P CABG (coronary artery bypass graft) Liver failure Mother Cancer throat Surgical History History of wisdom tooth extraction, class IV edentulism History of Social History household members: family number of children: 3 current occupational status: unemployed pets and animals: No other: Patient has 1 child and 2 stepchildren Smoking Status: Never smoker alcohol intake: never substance use type: does not use caffeine: Yes what type of physical activity do you participate in: none seatbelt use: always do you feel safe at home: Yes additional social history: - Ragsherlyder ROS Constitutional Constitutional: Denies anorexia, change in weight, chills, fatigue, fever(s), malaise, night sweats, weakness or other Eyes Eyes: Denies blurry vision, change in eye color, change in vision, discharge from eye (more content not included)... Normal [facility] HIP, UNI W/ Pelvis 2-3 Views on 09-05-2024 HIP, UNI W/ Pelvis 2-3 Views [facility] Imaging Services [address] [place] [id number] HIP, UNI W/ Pelvis 2-3 Views MR#: [id number] Acct: [id number] Name: SUHAS ABURTO Rep #: [id number] : 1965 F 59 From: Bradley betancourt MD PCP: WESTON Pang Status: REG ER Study: HIP, UNI W/ Pelvis 2-3 Views Date of Exam: Exam# [id number] Ordering Dr: Viry Barnard DO [id number] STUDY: X-RAY - PELVIS AND LEFT HIP REASON FOR EXAM: Female, 59 years old. Injury/Pain TECHNIQUE: 3 views of the pelvis and hip. COMPARISON: None. FINDINGS: There is a non-specific bowel gas pattern. Normal visualized soft tissue structures. Normal bilateral iliac wings, sacroiliac joints and visualized sacrum. Normal bilateral superior and inferior pubic rami. There are degenerative changes of the pubic symphysis with articular narrowing and sclerosis. Normal bilateral ischial tuberosities. Normal visualized femoral head. There is osteoarthritic spur formation of the acetabular rim. There is moderate articular joint space narrowing of the hip. RAD/HIP, UNI W/ Pelvis 2-3 Views IMPRESSION: Moderate degree of osteoarthritis of both hip joints. Electronically Signed: Bradley Ferrara MD at 15:07 EST Reading Location ID and State: [address] [place] [address] , Service support , CC: WESTON Robertson; Dr. 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 For more information see Policy Stat Procedure [place] High Sensitivity Troponin (TNIH) and attachments. Performed By: #### L 500.2500, L100.0500 #### [facility] [address] [place], [address] TROPONIN-I HS 94 pg/mL High 3.0-54.0 [facility] Comment on above: Result Comment: Pleearnestine se Note: New Test Units and Gender Specific Reference Ranges. For more information see Policy Stat Procedure [place] High Sensitivity Troponin (TNIH) and attachments. Performed By: #### L 500.2500, L100.0500 #### [facility] [address] [place], [address] L501.5425on 09-05-2024 TROPONIN-I HS 9 pg/mL Normal 3.0-54.0 [facility] Comment on above: Order Comment: 1Y Result Comment: Plea se Note: New Test Units and Gender Specific Reference Ranges. For more information see Policy Stat Procedure [place] High Sensitivity Troponin (TNIH) and attachments. Performed By: #### L 500.2500, L100.0500 #### [facility] [address] [place], [address] Lactic Acidon 09-05-2024 Lactate [Moles/Vol] 1.4 mmol/L Normal 0.4-1.9 [facility] Comment on above: Order Comment: Y Performed By: #### L 500.2500, L100.0500 #### [facility] [address] [place], [address] Partial Thromboplast Timeon 09-05-2024 aPTT Coag (Bld) [Time] 25.8 s Normal 24.1-36.[address] [facility] Comment on above: Performed By: #### L 500.2500, L100.0500 #### [facility] [address] [place], [address] Prothrombin Time w/INRon INR Normal [facility] Comment on above: Result Comment: DUPL ICATE ORDER RAN UNDER CG31 Performed By: #### L 500.2500, L100.0500 #### [facility] [address] [place], [address] PROTIME Normal 11.7-14.9 [facility] Comment on above: Result Comment: DUPL ICATE ORDER RAN UNDER CG31 Performed By: #### L 500.2500, L100.0500 #### [facility] [address] [place], [address] INR Coag (PPP) [Relative time] 1.0 {INR} Normal [facility] Comment on above: Performed By: #### L 500.2500, L100.0500 #### [facility] [address] [place], [address] PT Coag (PPP) [Time] 12.9 s Normal 11.7-14.9 [facility] Comment on above: Performed By: #### L 500.2500, L100.0500 #### [facility] [address] [place], [address] Urinalysis, Completeon 09-05 EPI,SQUAMOUS 0-5 SEEN Normal 5-10 [facility] Comment on above: Order Comment: CLEAN CATCH Performed By: #### L 400.0001 #### [facility] [address] [place], [address] Mucus Ql (Urine sed) RARE Normal [facility] Comment on above: Order Comment: CLEAN CATCH Performed By: #### L 400.0001 #### [facility] [address] [place], [address] BACTERIA 0 SEEN Normal None Seen [facility] Comment on above: Order Comment: CLEAN CATCH Performed By: #### L 400.0001 #### [facility] [address] [place], [address] RBC 0 SEEN Normal 0-5 [facility] Comment on above: Order Comment: CLEAN CATCH Performed By: #### L 400.0001 #### [facility] [address] [place], [address] WBC 0 SEEN Normal 0-5 [facility] Comment on above: Order Comment: CLEAN CATCH Performed By: #### L 400.0001 #### [facility] [address] [place], [address] Urine Drug Screen (VISTA)on 09-05-2024 AMPHETAMINES Negative Normal <1000 ng/mL [facility] Comment on above: Performed By: #### L 500.2500, L100.0500 #### [facility] [address] [place], [address] BARBITIURATES Negative Normal < 200 ng/mL [facility] Comment on above: Performed By: #### L 500.2500, L100.0500 #### [facility] [address] [place], [address] BENZODIAZIPINE Negative Normal < 200 ng/mL [facility] Comment on above: Performed By: #### L 500.2500, L100.0500 #### [facility] [address] [place], [address] COCAINE Negative Normal < 300 ng/mL [facility] Comment on above: Performed By: #### L 500.2500, L100.0500 #### [facility] [address] [place], [address] ECSTACY Negative Normal < 500 ng/mL [facility] Comment on above: Performed By: #### L 500.2500, L100.0500 #### [facility] [address] [place], [address] METHADONE Negative Normal < 300 ng/mL [facility] Comment on above: Performed By: #### L 500.2500, L100.0500 #### [facility] [address] [place], [address] OPIATES Negative Normal < 300 ng/mL [facility] Comment on above: Performed By: #### L 500.2500, L100.0500 #### [facility] [address] [place], [address] PCP Negative Normal < 25 ng/mL [facility] Comment on above: Performed By: #### L 500.2500, L100.0500 #### [facility] [address] [place], [address] THC Negative Normal < 50 ng/mL [facility] Comment on above: Performed By: #### L 500.2500, L100.0500 #### [facility] [address] [place], [address] VISTA UDS PH 5 Normal [facility] Comment on above: Performed By: #### L 500.2500, L100.0500 #### [facility] [address] [place], [address] CNOVon 07-21-2024 CNOV Office Visit (AGFAMPLE) SUHAS ABURTO ([id number]) 1965 F Date Time Provider Department 07/21/24 9:20 AM NORA ROBERTSON During your visit today, we recorded the following information about you: Temperature Pulse Blood pressure Weight 98.4 degrees 72/minute 122/60 62.1 kg Height 1.524 m Nora Robertson APRN.ACCELERATOR SYSTEMS DIRECTOR 07/21/2024 10:35 AM Signed CHIEF COMPLAINT: Suhas Aburto is a 59 year old female who [...] Colonoscopy/repeat in EGD TRANSORAL BIOPSY SINGLE/MULTIPLE 10/04/10 ESOPHAGOGASTRODUODENO SCOPY TRANSORAL DIAGNOSTIC 08/31/2011 EGD Social History Tobacco Use Smoking status: Never Smokeless tobacco: Never Substance Use Topics Alcohol use: No Drug use: No ALLERGIES Allergen Reactions Sulfa (Sulfonamide * itching, rash Family History Problem Relation Age of Onset Cancer Mother throat Heart Brother [place] Diabetes Brother Coronary Artery Disease Brother [place] Current Outpatient Medications Medication Sig Dispense Refill FLUoxetine (PROZAC) 20 mg capsule Take 1 capsule by mouth once daily. Take 1 capsule by mouth once daily 90 capsule 1 loratadine (ALLERGY RELIEF, LORATADINE,) 10 mg tablet Take 1 tablet by mouth once daily. 30 tablet 2 atenolol (TENORMIN) 25 mg tablet Take 1 tab (more content not included)... Normal [facility] Emergency Department Summary on 06-17-2024 Emergency Department Summary [facility] Medical Records Department [address] [place] [address] Emergency Department Summary 06/17/24 MR#: [id number] Acct: [id number] Name: SUHAS ABURTO Rep #: [id number] : 1965 58 From: Viry Barnard DO PCP: WESTON Pang Status:REG ER Location: ED HPI History of Present Illness Chief Complaint: Fall Informant: patient Narrative Narrative: Patient 58-year-old female with history of osteoarthritis of her left knee presenting with increased left knee pain. Patient was walking down 4 steps yesterday and on the last step missed a step and came down hard on her knee. She stepped on it hard but did not actually fall or land directly on her knee. She denies any other injuries. Her put topical medication on it last night and wrapped it with a heating pad. She is continue to have pain today and came in for further evaluation. She states her pain is much more swollen than normal. She denies history of surgery on the knee but does follow with Dr. Ibarra and is on physical therapy for her knee. She also has had intentional weight loss to help with her knee pain. States overall her knee had been doing better until this injury yesterday. Did not take any medication for pain prior to arrival. Denies any other complaints or concerns at this time. Notes the pain is on the outside of the knee and radiates down her centeno. [facility] Medical History Anxiety and depression Osteoarthritis of left knee Cataract Arthritis GERD (gastroesophageal reflux disease) Vitamin D deficiency Overweight Anxiety Depression Hyperlipemia Anemia Hypertension Abnormal EKG Chest pain Home Medications ???Medication ???Instructions ???Recorded ???Last Taken ???Type cyanocobalamin (vitamin B-12) 1,000 mcg PO DAILY 12/19/18 Unknown History 1,000 mcg capsule ascorbic acid (vitamin C) 500 mg 500 mg PO DAILY PRN 12/29/19 Unknown History tablet citalopram 10 mg tablet 10 mg PO DAILY 02/22/22 Unknown History multivitamin 1 tab PO DAILY 02/22/22 Unknown History acetaminophen 500 mg tablet 500 - 1,000 mg (1 - 2 x 500 mg) PO 07/11/22 Unknown Rx TID-QID PRN fever or pain #60 tabs atenolol 25 mg tablet 25 mg PO QDAY #30 tabs 01/08/24 Unknown Rx cholecalciferol (vitamin D3) 25 1,000 unit PO QDAY #30 caps 01/08/24 Unknown Rx mcg (1,000 unit) capsule loratadine 10 mg tablet 10 mg PO QDAY PRN allergy symptoms 01/08/24 Unknown Rx #30 tabs diphenhydramine HCl 25 mg capsule 25 mg PO TID PRN headache #10 caps 03/31/24 Unknown Rx (Benadryl) ketorolac 10 mg tablet 10 mg PO Q8H PRN pain 3 days #10 03/31/24 Unknown Rx tabs prochlorperazine maleate 10 mg 10 mg PO Q8H PRN nausea and 03/31/24 Unknown Rx tablet (Compazine) vomiting #10 tabs ibuprofen 600 mg tablet 600 mg PO TID-QID PRN pain #30 tabs 06/17/24 Unknown Rx Allergy/AdvReac Type Severity Reaction Status Date / Time atorvastatin (From Lipitor) Allergy Severe Bad skin Verified 06/17/24 08:25 reaction Sulfa (Sulfonamide Allergy Unknown Verified 06/17/24 08:25 Antibiotics) Family History Brother , age 55 or 56 Myocardial infarction Sudden cardiac Brother , 55 or 56 , from liver failure CAD (coronary artery disease) S/P CABG (coronary artery bypass graft) Liver failure Mother Cancer throat Surgical History History of wisdom tooth extraction, class IV edentulism History of Social History household members: family number of children: 3 current occupational status: unemployed pets and animals: No other: Patient has 1 child and 2 stepchildren Smoking Status: Current every day smoker tobacco type: cigarettes alcohol intake: never substance use type: does not use caffeine: Yes what type of physical activity do you participate in: none seatbelt use: always do you feel safe at home: Yes additional social history: - Shun BUSTOS ROS ED Constitutional Constitutional ED: Denies chills or fever(s) Musculoskeletal Musculoskeletal: Reports other Details: left knee pain and swelling Integumentary Denies Abrasions or rash Neurologic Neurologic: Denies paresthesias or weakness Hematologic/Lymphatic Hematologic/Lymphatic : Denies easy bleeding or easy bruising EXAM Physical Exam Const Vital Signs: 06/17/24 08:23 06/17/24 08:32 Temperature 97.1 F L Temperature Source Temporal Pulse Rate 71 Respiratory Rate 16 Respiratory Effort Normal Non-Labored Respiratory Depth Normal Respiratory Pattern Normal Blood Pressure 130/60 H Blood Press (more content not included)... Normal [facility] Extremity Lower without Cont raon 06-17-2024 Extremity Lower without Contra [facility] Imaging Services [address] [place] [address] Extremity Lower without Contra MR#: [id number] Acct: [id number] Name: SUHAS ABURTO Rep #: [id number] : 1965 F 58 From: Fransisco Ambrocio MD PCP: Nora Robertson NP-Ami Status: REG ER Study: Extremity Lower without Contra Date of Exam: 0 06/17/24 Exam# [id number] Ordering Dr: Viry Barnard DO [id number] STUDY: CT LEFT KNEE WITHOUT CONTRAST REASON [...] fat pad. The soft tissues are unremarkable. CT/Extremity Lower without Contra IMPRESSION: Tricompartment degenerative arthrosis, most pronounced in the medial femorotibial compartment. 7 mm ossified loose body in the intercondylar notch. Small joint effusion. Electronically Signed: Fransisco Ambrocio MD at 10:21 EDT Reading Location ID and State: [facility] / [place] , Service support , CC: ANALYTICS LEAD-Ami Robertson; Dr. 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 The soft tissue structures are unremarkable. RAD/Knee 4 or More Views IMPRESSION: Persistent tricompartment degenerative arthrosis, most severe in the medial femorotibial compartment. No demonstrated fracture. Electronically Signed: Fransisco Ambrocio MD at 9:08 EDT , CC: WESTON Robertson; Dr. Viry Barnard, [employer] Laborer: Signed [facility] 03-30-2024 CNPN Telephone (UCWSTR) SUHAS ABURTO ([id number]) 1965 F Date Time Provider Department 03/30/24 JULISSA SOTO [facility] During your visit today, we recorded the following information about you: Julissa Soto PA 03/30/2024 8:00 AM Signed Negative for [...] of func*10/04/2010 11/16/2015 ASCUS on Pap smear [TGB8023] 08/23/2011 Blood in stool [K92.1] 08/31/2011 03/24/2014 Anemia, unspecified [D64.9] 08/31/2011 06/28/2016 Iron deficiency anemia [D50.9] 09/28/2011 Neck pain [M54.2] 01/23/2013 06/28/2016 Cervicalgia [M54.2] 11/06/2013 Adjustment disorder with mixed anxiety and depr*12/29/2013 Psychic factors associated with diseases classi*12/29/2013 Sciatica [M54.30] 02/23/2015 Tension-type headache, not intractable [G44.209]01/27/2016 Abnormal mammogram [R92.8] 07/06/2017 Encounter Status:Closed by YEFRI CHESTER on 03/30/24 Normal [facility] CNOVon 03-29-2024 CNOV Office Visit (UCWSTR ) SUHAS ABURTO ([id number]) 1965 F Date Time Provider Department 03/29/24 12:30 PM JULISSA SOTO [facility] During your visit today, we recorded the following information about you: Temperature Pulse Respiration Blood pressure 98.4 degrees 75/minute 18/minute 154/93 Weight 61.3 kg Julissa Soto PA 03/29/2024 12:31 PM Signed Rest, increase [...] Flonase to help with any congestion. Julissa Soto PA 03/29/2024 12:35 PM Signed This note was created using Bringgriter. Subjective Suhas Aburto is a 58 year old female. HPI [...] Colonoscopy/repeat in EGD TRANSORAL BIOPSY SINGLE/MULTIPLE 10/04/10 ESOPHAGOGASTRODUODENO SCOPY TRANSORAL DIAGNOSTIC 08/31/2011 EGD ALLERGIES Sulfa (Sulfonamide [...] of Onset Cancer Mother throat Heart Brother [place] Diabetes Brother Coronary Artery Disease Brother [place] Social History Tobacco Use Smoking status: Never [...] (more content not included)... Normal [facility] COVID AND INFLUENZA A/B AND RSV NAAT, ROUTINEon 03-29-2024 SARS-CoV-2 (COVID-19) RNA LILIBETH+probe Ql (Unsp spec) COVID 19 RESULT: Not detected The method used is RT-PCR or an equivalent NAAT method. Reference Range (the expected result in uninfected individuals): Not detected INFLUENZA A PCR: Not detected INFLUENZA B PCR: Not detected RSV PCR: Not detected Normal [facility] Comment on above: Performed By: #### 1 [id number] #### [facility] CLIA [id number] [address] [place] [address] [place] Absolute lymphocyte countOrd ered By: Sherry Ruperto on 09-27-2023 Lymphocytes Auto (Unsp spec) [#/Vol] 3.85 10*3/uL 0.83-4.51 [facility] Basophil percentageOrdered B y: Sherry Ruperto on 09-27-2023 Basophils/100 WBC (Bld) 1.0 % 0-1 [facility] Chloride [Moles/Vol] 110 mmol/L 98-[facility] Eosinophils/100 WBC (Bld) 4.3 % 0-5 [facility] Glucose [Mass/Vol] 84 mg/dL 74-106 [facility] Neutrophils (Bld) [#/Vol] 4.4 10*3/uL 2.0-7.7 [facility] Neutrophils/100 WBC (Bld) 46.4 % 47-70 [facility] Potassium [Moles/Vol] 4.0 mmol/L 3.5-5.1 [facility] Sodium [Moles/Vol] 139 mmol/L 136-145 [facility] WBC (Bld) [#/Vol] 9.5 10*3/uL 4.4-11.0 [facility] Blood erythrocytes count (nu mber/volume)Ordered By: Sherry Hickey on 09-27-2023 RBC (Bld) [#/Vol] 4.04 10*6/uL 4.2-5.4 [facility] Blood hemoglobin measurement (mass/volume)Ordered By: Sherry Hickey on 09-27-2023 Hemoglobin (Bld) [Mass/Vol] 11.1 g/dL 12.0-15.0 [facility] Blood lymphocytes/100 leukoc ytesOrdered By: Sherry Hickey on 09-27-2023 Lymphocytes/100 WBC (Bld) 40.4 % 19-41 [facility] Blood monocytes/100 leukocyt esOrdered By: Sherry Hickey on 09-27-2023 Monocytes/100 WBC (Bld) 6.7 % 0-10 [facility] Blood platelet mean volumeOr dered By: Sherry Hickey on 09-27-2023 Platelet mean volume (Bld) [Entitic vol] 9.7 fL 6.2-12.0 [facility] Determination of erythrocyte mean corpuscular volume (MCV)Ordered By: Sherry Hickey on 09-27-2023 MCV (RBC) [Entitic vol] 89.6 fL 81-99 [facility] Hematocrit Auto (Bld) [Volum e fraction]Ordered By: Sherry iHckey on 09-27-2023 Hematocrit (Bld) [Volume fraction] 36.2 % 37-47 [facility] - Chemistry and C hemistry - challengeOrdered By: Sherry Hickey on 09-27-2023 CO2 [Moles/Vol] 25.0 mmol/L 21.0-32.0 [facility] Urea nitrogen/Creatinine [Mass ratio] 18.7 mg/mg 10-20 [facility] - Hematology and Cell countsOrdered By: Sherry Hickey on 09-27-2023 Erythrocyte distribution width (RBC) [Entitic vol] 44.4 fL 35.1-43.9 [facility] Erythrocyte distribution width (RBC) [Ratio] 13.4 % 11.6-14.6 [facility] Immature granulocytes/100 WBC (Bld) 1.200 % 0.0-0.9 [facility] Comment on above: IG% - Immature Granu locytes (promyelocytes, myelocytes and metamyelocytes) > 1% indicates that a LEFT SHIFT is Present. MCH (RBC) [Entitic mass] 27.5 pg 27.0-32.0 [facility] Nucleated RBC/100 WBC (Bld) [Ratio] 0 % 0-5 [facility] MCHC Auto (RBC) [Mass/Vol]Or dered By: Sherry Hickey on 09-27-2023 MCHC (RBC) [Mass/Vol] 30.7 g/dL 32-36 [facility] No Panel InformationOrdered By: Sherry Hickey on 09-27-2023 Estimated GFR (MDRD) Amer 111 mL/min >60 [facility] Comment on above: GFR Calc Estimated GFR (MDRD) Non-Af Amer 92 mL/min >60 [facility] Comment on above: Non- GFR Calc Platelets bldOrdered By: Sharita Hiceky on 09-27-2023 Platelets (Bld) [#/Vol] 388 10*3/uL 150-450 [facility] Serum heterophile antibody d etectionOrdered By: Sherry Hickey on 09-27-2023 Heterophile Ab Ql (S) Negative Negative [facility] Serum or plasma calcium pedro urement (mass/volume)Ordered By: Sherry Hickey on 09-27-2023 Calcium [Mass/Vol] 9.1 mg/dL 8.5-10.1 [facility] Serum or plasma creatinine m easurement (mass/volume)Ordered By: Sherry Hickey on 09-27-2023 Creatinine [Mass/Vol] 0.70 mg/dL 0.55-1.02 [facility] Comment on above: The validity of the calculated GFR & GFRAA in patients over 70 years has not been determined. Clinical correlation is essential. Serum or plasma urea nitroge n measurement (mass/volume)Ordered By: Sherry Hickey on 09-27-2023 Urea nitrogen [Mass/Vol] 13 mg/dL 7-18 [facility] Thin prep Papanicolaou smear with manual screeningOrdered By: Sherry Hickey on 09-27-2023 Thin prep Papanicolaou smear with manual screening 4 5-15 [facility] XR CHEST 2V FRONTAL/L[facility]on [facility] XR Chest PA and Lateralon IMPRESSION: No acute radiographic abnormality. [employer] Laborer: MARYLU Transcribe Date/Time: Sep 12 2023 3:49P Dictated by : JESSICA HU MD This examination was interpreted and the report reviewed and electronically signed by: JESSICA HU MD on Sep 12 2023 3:49PM [facility] DIVISION OF RADIOLOGY * * *Final Report* [...] in the spine. DIVISION OF RADIOLOGY Provider, Patrick Ellis - 09/12/2023 * * *Final Report* * [...] spine. IMPRESSION IMPRESSION: No acute radiographic abnormality. [employer] Laborer: PSCB Transcribe Date/Time: Sep 12 2023 3:49P Dictated by : JESSICA HU MD This examination was interpreted and the report reviewed and electronically signed by: JESSICA HU MD on Sep 12 2023 3:49PM EST [facility] Radiology Study observation (narrative) [facility] XR Chest PA and LateralOrder ed By: [facility] Provider on 09-12-2023 [facility] Absolute lymphocyte countOrd ered By: Amber Ojeda on 06-26-2023 Lymphocytes Auto (Unsp spec) [#/Vol] 4.16 10*3/uL 0.83-4.51 [facility] Basophil percentageOrdered B y: Amber Ojeda on 06-26-2023 Basophils/100 WBC (Bld) 0.7 % 0-1 [facility] Bilirubin [Mass/Vol] 0.20 mg/dL 0.20-1.00 [facility] Comment on above: For patients on eltr ombopag therapy, use of Dimension [place] TBIL is not recommended. Chloride [Moles/Vol] 110 mmol/L 98-107 [facility] Eosinophils/100 WBC (Bld) 3.2 % 0-5 [facility] Glucose [Mass/Vol] 110 mg/dL 74-106 [facility] Comment on above: Fasting Glucose resu lt from 100 to 125 mg/dL suggests IMPAIRED HOMEOSTASIS per A.D.A. criteria. Neutrophils (Bld) [#/Vol] 4.2 10*3/uL 2.0-7.7 [facility] Neutrophils/100 WBC (Bld) 44.2 % 47-70 [facility] Potassium [Moles/Vol] 4.1 mmol/L 3.5-5.1 [facility] Protein [Mass/Vol] 7.6 g/dL 6.4-8.2 [facility] Sodium [Moles/Vol] 141 mmol/L 136-145 [facility] WBC (Bld) [#/Vol] 9.6 10*3/uL 4.4-11.0 [facility] Blood erythrocytes count (nu mber/volume)Ordered By: Amber Ojeda on 06-26-2023 RBC (Bld) [#/Vol] 4.18 10*6/uL 4.2-5.4 [facility] Blood hemoglobin measurement (mass/volume)Ordered By: Amber Ojeda on 06-26-2023 Hemoglobin (Bld) [Mass/Vol] 11.6 g/dL 12.0-15.0 [facility] Blood lymphocytes/100 leukoc ytesOrdered By: Amber Ojeda on 06-26-2023 Lymphocytes/100 WBC (Bld) 43.6 % 19-41 [facility] Blood monocytes/100 leukocyt esOrdered By: Amber Ojeda on 06-26-2023 Monocytes/100 WBC (Bld) 7.4 % 0-10 [facility] Blood platelet mean volumeOr dered By: Amber Ojeda on 06-26-2023 Platelet mean volume (Bld) [Entitic vol] 9.9 fL 6.2-12.0 [facility] Determination of erythrocyte mean corpuscular volume (MCV)Ordered By: Amber Ojeda on 06-26-2023 MCV (RBC) [Entitic vol] 90.0 fL 81-99 [facility] Hematocrit Auto (Bld) [Volum e fraction]Ordered By: Amber Ojeda on 06-26-2023 Hematocrit (Bld) [Volume fraction] 37.6 % 37-47 [facility] - Chemistry and C hemistry - challengeOrdered By: Amber Ojeda on 06-26-2023 ALP [Catalytic activity/Vol] 70 U/L 45-117 [facility] ALT [Catalytic activity/Vol] 35 U/L 13-56 [facility] CO2 [Moles/Vol] 26.0 mmol/L 21.0-32.0 [facility] Globulin (S) [Mass/Vol] 4.2 g/dL 2.2-4.2 [facility] Urea nitrogen/Creatinine [Mass ratio] 15.3 mg/mg 10-20 [facility] - Hematology and Cell countsOrdered By: Amber Ojeda on 06-26-2023 Erythrocyte distribution width (RBC) [Entitic vol] 44.4 fL 35.1-43.9 [facility] Erythrocyte distribution width (RBC) [Ratio] 13.6 % 11.6-14.6 [facility] Immature granulocytes/100 WBC (Bld) 0.900 % 0.0-0.9 [facility] Comment on above: IG% - Immature Granu locytes (promyelocytes, myelocytes and metamyelocytes) > 1% indicates that a LEFT SHIFT is Present. MCH (RBC) [Entitic mass] 27.8 pg 27.0-32.0 [facility] Nucleated RBC/100 WBC (Bld) [Ratio] 0 % 0-5 [facility] MCHC Auto (RBC) [Mass/Vol]Or dered By: Amber Ojeda on 06-26-2023 MCHC (RBC) [Mass/Vol] 30.9 g/dL 32-36 [facility] No Panel InformationOrdered By: Amber Ojeda on 06-26-2023 Estimated GFR (MDRD) Amer 107 mL/min >60 [facility] Comment on above: GFR Calc Estimated GFR (MDRD) Non-Af Amer 89 mL/min >60 [facility] Comment on above: Non- GFR Calc Thyroid Stimulating Hormone (TSH) 3.49 uIU/mL 0.358-3.74 [facility] Platelets bldOrdered By: Amber Ojeda on 06-26-2023 Platelets (Bld) [#/Vol] 381 10*3/uL 150-450 [facility] Serum or plasma albumin pedro urement (mass/volume)Ordered By: Amber Ojeda on 06-26-2023 Albumin [Mass/Vol] 3.4 g/dL 3.2-5.0 [facility] Serum or plasma albumin/glob ulin mass ratioOrdered By: Amber Ojeda on 06-26-2023 Albumin/Globulin [Mass ratio] 0.8 {ratio} 0.9-2.4 [facility] Serum or plasma calcium pedro urement (mass/volume)Ordered By: Amber Ojeda on 06-26-2023 Calcium [Mass/Vol] 8.9 mg/dL 8.5-10.1 [facility] Serum or plasma creatinine m easurement (mass/volume)Ordered By: Amber Ojeda on 06-26-2023 Creatinine [Mass/Vol] 0.72 mg/dL 0.55-1.02 [facility] Comment on above: The validity of the calculated GFR & GFRAA in patients over 70 years has not been determined. Clinical correlation is essential. Serum or plasma urea nitroge n measurement (mass/volume)Ordered By: Amber Ojeda on 06-26-2023 Urea nitrogen [Mass/Vol] 11 mg/dL 7-18 [facility] Thin prep Papanicolaou smear with manual screeningOrdered By: Amber Ojeda on 06-26-2023 Thin prep Papanicolaou smear with manual screening 22 U/L 15-37 [facility] Thin prep Papanicolaou smear with manual screening 5 5-15 [facility] Absolute lymphocyte countOrd ered By: Shelia Steele on 11-16-2022 Lymphocytes Auto (Unsp spec) [#/Vol] 4.43 10*3/uL 0.83-4.51 [facility] Basophil percentageOrdered B y: Shelia Steele on 11-16-2022 Basophils/100 WBC (Bld) 1.1 % 0-1 [facility] Bilirubin [Mass/Vol] 0.30 mg/dL 0.20-1.00 [facility] Comment on above: For patients on eltr ombopag therapy, use of Dimension [place] TBIL is not recommended. Chloride [Moles/Vol] 105 mmol/L 98-107 [facility] Cholesterol [Mass/Vol] 213 mg/dL <[address] [facility] Comment on above: <200 mg/dL Desirable 200-240 mg/dL Borderline >240 mg/dL High Risk Eosinophils/100 WBC (Bld) 3.0 % 0-5 [facility] Glucose [Mass/Vol] 99 mg/dL 74-106 [facility] Neutrophils (Bld) [#/Vol] 4.8 10*3/uL 2.0-7.7 [facility] Neutrophils/100 WBC (Bld) 46.1 % 47-70 [facility] Potassium [Moles/Vol] 4.4 mmol/L 3.5-5.1 [facility] Protein [Mass/Vol] 7.8 g/dL 6.4-8.2 [facility] Sodium [Moles/Vol] 140 mmol/L 136-145 [facility] Triglyceride [Mass/Vol] 264 mg/dL <199 [facility] Comment on above: The drugs N-Acetylcy steine and Metamizole may falsely depress this assay.Serum Triglycerides Reference Interval Normal <150 mg/dL Borderline high 150 - 199 mg/dL High 200 - 499 mg/dL Very High > or = 500 mg/dL WBC (Bld) [#/Vol] 10.4 10*3/uL 4.4-11.0 [facility] Blood erythrocytes count (nu mber/volume)Ordered By: Shelia Steele on 11-16-2022 RBC (Bld) [#/Vol] 4.35 10*6/uL 4.2-5.4 [facility] Blood hemoglobin measurement (mass/volume)Ordered By: Shelia Steele on 11-16-2022 Hemoglobin (Bld) [Mass/Vol] 12.2 g/dL 12.0-15.0 [facility] Blood lymphocytes/100 leukoc ytesOrdered By: Shelia Steele on 11-16-2022 Lymphocytes/100 WBC (Bld) 42.6 % 19-41 [facility] Blood monocytes/100 leukocyt esOrdered By: Shelia Steele on 11-16-2022 Monocytes/100 WBC (Bld) 6.7 % 0-10 [facility] Blood platelet mean volumeOr dered By: Shelia Steele on 11-16-2022 Platelet mean volume (Bld) [Entitic vol] 9.3 fL 6.2-12.0 [facility] Determination of erythrocyte mean corpuscular volume (MCV)Ordered By: Shelia Steele on 11-16-2022 MCV (RBC) [Entitic vol] 88.7 fL 81-99 [facility] Hematocrit Auto (Bld) [Volum e fraction]Ordered By: Shelia Steele on 11-16-2022 Hematocrit (Bld) [Volume fraction] 38.6 % 37-47 [facility] Laboratory - Chemistry and C hemistry - challengeOrdered By: Shelia Steele on 11-16-2022 ALP [Catalytic activity/Vol] 71 U/L 45-117 [facility] ALT [Catalytic activity/Vol] 36 U/L 13-56 [facility] CO2 [Moles/Vol] 30.0 mmol/L 21.0-32.0 [facility] Globulin (S) [Mass/Vol] 4.1 g/dL 2.2-4.2 [facility] Magnesium [Mass/Vol] 2.0 mg/dL 1.6-2.6 [facility] Urea nitrogen/Creatinine [Mass ratio] 24.4 mg/mg 10-20 [facility] Laboratory - Hematology and Cell countsOrdered By: Shelia Steele on 11-16-2022 Erythrocyte distribution width (RBC) [Entitic vol] 43.0 fL 35.1-43.9 [facility] Erythrocyte distribution width (RBC) [Ratio] 13.2 % 11.6-14.6 [facility] Immature granulocytes/100 WBC (Bld) 0.500 % 0.0-0.9 [facility] Comment on above: IG% - Immature Granu locytes (promyelocytes, myelocytes and metamyelocytes) > 1% indicates that a LEFT SHIFT is Present. MCH (RBC) [Entitic mass] 28.0 pg 27.0-32.0 [facility] Nucleated RBC/100 WBC (Bld) [Ratio] 0 % 0-5 [facility] MCHC Auto (RBC) [Mass/Vol]Or dered By: Shelia Steele on 11-16-2022 MCHC (RBC) [Mass/Vol] 31.6 g/dL 32-36 [facility] No Panel InformationOrdered By: Shelia Steele on 11-16-2022 Estimated GFR (MDRD) Amer 104 mL/min >60 [facility] Comment on above: GFR Calc Estimated GFR (MDRD) Non-Af Amer 86 mL/min >60 [facility] Comment on above: Non- GFR Calc Thyroid Stimulating Hormone (TSH) 1.72 uIU/mL 0.358-3.74 [facility] Vitamin B12 Level > 2000 pg/mL 211-911 [facility] Platelets bldOrdered By: Maribeth Steele on 11-16-2022 Platelets (Bld) [#/Vol] 396 10*3/uL 150-450 [facility] Serum or plasma albumin pedro urement (mass/volume)Ordered By: Shelia Steele on 11-16-2022 Albumin [Mass/Vol] 3.7 g/dL 3.2-5.0 [facility] Serum or plasma albumin/glob ulin mass ratioOrdered By: Shelia Steele on 11-16-2022 Albumin/Globulin [Mass ratio] 0.9 {ratio} 0.9-2.4 [facility] Serum or plasma calcium pedro urement (mass/volume)Ordered By: Shelia Steele on 11-16-2022 Calcium [Mass/Vol] 9.4 mg/dL 8.5-10.1 [facility] Serum or plasma cholesterol in HDL measurement (mass/volume)Ordered By: Sehlia Steele on 11-16-2022 Cholesterol in HDL [Mass/Vol] 39 mg/dL >40 [facility] Comment on above: The drugs N-Acetylcy steine and Metamizole may falsely depress this assay. Reference Range HDL <40 mg/dL Low HDL Cholesterol HDL >or= 60 mg/dL High HDL Cholesterol Serum or plasma cholesterol in VLDL measurement (mass/volume)Ordered By: Shelia Steele on 11-16-2022 Cholesterol in VLDL [Mass/Vol] 53 mg/dL 5-40 [facility] Serum or plasma creatinine m easurement (mass/volume)Ordered By: Shelia Steele on 11-16-2022 Creatinine [Mass/Vol] 0.74 mg/dL 0.55-1.02 [facility] Comment on above: The validity of the calculated GFR & GFRAA in patients over 70 years has not been determined. Clinical correlation is essential. Serum or plasma low density lipoprotein (LDL) cholesterol measurement (mass/volume)Ordered By: Shelia Steele on 11-16-2022 Cholesterol in LDL [Mass/Vol] 121 mg/dL 0-130 [facility] Serum or plasma urea nitroge n measurement (mass/volume)Ordered By: Shelia Steele on 11-16-2022 Urea nitrogen [Mass/Vol] 18 mg/dL 7-18 [facility] Thin prep Papanicolaou smear with manual screeningOrdered By: Shelia Steele on 11-16-2022 Thin prep Papanicolaou smear with manual screening 27 U/L 15-37 [facility] Thin prep Papanicolaou smear with manual screening 5 5-15 [facility] Whole blood hemoglobin A1c/t otal hemoglobin ratio (mass fraction)Ordered By: Shelia Steele on 11-16-2022 HbA1c (Bld) [Mass fraction] 5.7 % 3.8-5.6 [facility] Comment on above: Normal < 5.7 % Predi abetic 5.7 - 6.4 % Diabetic >or= 6.5 % Please note range changes. Laboratory - Microbiology an d Antimicrobial susceptibilityon 10-10-2022 SARS-CoV-2 (COVID-19) RNA LILIBETH+probe Ql (Unsp spec) Not detected [facility] No Panel Informationon 10-10 Influenza Types A,B Rapid (Clinic) Not detected [facility] Vital Signs Date Time Vital Sign Value Performing Clinician Facility 05-27-2025 23:09-0400 Body temperature 98.1 [degF] Dr. Edgra Doss DO Work Phone: [facility] 05-27-2025 23:09-0400 Diastolic blood pressure 78 mm[Hg] Dr. Edgar Lima Work Phone: [facility] 05-27-2025 23:09-0400 Heart rate 97 /min Dr. Edgar Lima Work Phone: [facility] 05-27-2025 23:09-0400 Respiratory rate 16 /min Dr. Edgar Lima Work Phone: [facility] 05-27-2025 23:09-0400 SaO2% (BldA) [Mass fraction] 98 % Dr. Edgar Lima Work Phone: [facility] 05-27-2025 23:09-0400 Systolic blood pressure 166 mm[Hg] Dr. Edgar Lima Work Phone: [facility] 05-27-2025 19:23-0400 Body height 152.[address] Edgar Doss DO Work Phone: [facility] 05-27-2025 19:23-0400 Body mass index (BMI) [Ratio] 28 kg/m2 Dr. Edgar Doss DO Work Phone: [facility] 05-27-2025 19:23-0400 Body weight [address] Edgar Doss DO Work Phone: [facility] 02-24-2025 14:29-0400 Diastolic blood pressure 80 mm[Hg] Nora Queden HORIZONTAL BORING MILL OPERATOR.ACCELERATOR SYSTEMS DIRECTOR Work Phone: [facility] 02-24-2025 14:29-0400 Systolic blood pressure 132 mm[Hg] Nora Queden HORIZONTAL BORING MILL OPERATOR.ACCELERATOR SYSTEMS DIRECTOR Work Phone: [facility] 02-24-2025 14:08-0400 Body height 152.4 cm Nora Queden HORIZONTAL BORING MILL OPERATOR.ACCELERATOR SYSTEMS DIRECTOR Work Phone: [facility] 02-24-2025 14:08-0400 Body mass index (BMI) [Ratio] 26.76 kg/m2 Nora Queden HORIZONTAL BORING MILL OPERATOR.ACCELERATOR SYSTEMS DIRECTOR Work Phone: [facility] 02-24-2025 14:08-0400 Body temperature 98.01 [degF] Nora Queden HORIZONTAL BORING MILL OPERATOR.ACCELERATOR SYSTEMS DIRECTOR Work Phone: [facility] 02-24-2025 14:08-0400 Body weight 62.14 kg Nora Queden HORIZONTAL BORING MILL OPERATOR.ACCELERATOR SYSTEMS DIRECTOR Work Phone: [facility] 02-24-2025 14:08-0400 Heart rate 63 /min Nora Queden HORIZONTAL BORING MILL OPERATOR.ACCELERATOR SYSTEMS DIRECTOR Work Phone: [facility] 02-24-2025 14:08-0400 Respiratory rate 18 /min Nora Queden HORIZONTAL BORING MILL OPERATOR.ACCELERATOR SYSTEMS DIRECTOR Work Phone: [facility] 02-24-2025 14:08-0400 SaO2% (BldA) [Mass fraction] 99 % Nora Queden HORIZONTAL BORING MILL OPERATOR.ACCELERATOR SYSTEMS DIRECTOR Work Phone: [facility] 02-18-2025 15:47-0400 Body mass index (BMI) [Ratio] 26.78 kg/m2 Krislyn Aberegg PA Work Phone: [facility] 02-18-2025 15:47-0400 Body temperature 97.11 [degF] Krislyn Aberegg PA Work Phone: [facility] 02-18-2025 15:47-0400 Body weight 62.2 kg Krislyn Aberegg PA Work Phone: [facility] 02-18-2025 15:47-0400 Diastolic blood pressure 80 mm[Hg] Krislyn Aberegg PA Work Phone: [facility] 02-18-2025 15:47-0400 Heart rate 64 /min Krislyn Aberegg PA Work Phone: [facility] 02-18-2025 15:47-0400 Respiratory rate 18 /min Krislyn Aberegg PA Work Phone: [facility] 02-18-2025 15:47-0400 SaO2% (BldA) [Mass fraction] 96 % Krislyn Aberegg PA Work Phone: [facility] 02-18-2025 15:47-0400 Systolic blood pressure 128 mm[Hg] Krislyn Aberegg PA Work Phone: [facility] 11-12-2024 10:00-0500 Body mass index (BMI) [Ratio] 26.95 kg/m2 Yandel Clutter PA-C Work Phone: [facility] 11-12-2024 10:00-0500 Body temperature 99.5 [degF] Yandel Clutter PA-C Work Phone: [facility] 11-12-2024 10:00-0500 Body weight 62.6 kg Yandel Clutter PA-C Work Phone: [facility] 11-12-2024 10:00-0500 Diastolic blood pressure 80 mm[Hg] Yandel Clutter PA-C Work Phone: [facility] 11-12-2024 10:00-0500 Heart rate 85 /min Yandel Clutter PA-C Work Phone: [facility] 11-12-2024 10:00-0500 Respiratory rate 20 /min Yandel Clutter PA-C Work Phone: [facility] 11-12-2024 10:00-0500 SaO2% (BldA) [Mass fraction] 98 % Yandel Clutter PA-C Work Phone: [facility] 11-12-2024 10:00-0500 Systolic blood pressure 122 mm[Hg] Yandel Clutter PA-C Work Phone: [facility] 09-18-2024 15:37-0500 Body height 152.4 cm Nora Queden HORIZONTAL BORING MILL OPERATOR.ACCELERATOR SYSTEMS DIRECTOR Work Phone: [facility] 09-18-2024 15:37-0500 Body mass index (BMI) [Ratio] 27.05 kg/m2 Nora Queden H[employer]IZONTAL BORING MILL OPERATOR.ACCELERATOR SYSTEMS DIRECTOR Work Phone: [facility] 09-18-2024 15:37-0500 Body temperature 98.1 [degF] Nora Queden HORIZONTAL BORING MILL OPERATOR.ACCELERATOR SYSTEMS DIRECTOR Work Phone: [facility] 09-18-2024 15:37-0500 Body weight 62.82 kg Nora Queden HORIZONTAL BORING MILL OPERATOR.ACCELERATOR SYSTEMS DIRECTOR Work Phone: [facility] 09-18-2024 15:37-0500 Diastolic blood pressure 68 mm[Hg] Nora Queden HORIZONTAL BORING MILL OPERATOR.ACCELERATOR SYSTEMS DIRECTOR Work Phone: [facility] 09-18-2024 15:37-0500 Heart rate 70 /min Nora Queden HORIZONTAL BORING MILL OPERATOR.ACCELERATOR SYSTEMS DIRECTOR Work Phone: [facility] 09-18-2024 15:37-0500 Respiratory rate 16 /min Nora Queden HORIZONTAL BORING MILL OPERATOR.ACCELERATOR SYSTEMS DIRECTOR Work Phone: [facility] 09-18-2024 15:37-0500 SaO2% (BldA) [Mass fraction] 99 % Nora Queden HORIZONTAL BORING MILL OPERATOR.ACCELERATOR SYSTEMS DIRECTOR Work Phone: [facility] 09-18-2024 15:37-0500 Systolic blood pressure 116 mm[Hg] Nora Queden HORIZONTAL BORING MILL OPERATOR.[facility] Work Phone: [facility] 07-21-2024 09:05-0400 Body height 152.4 cm Nora Queden HORIZONTAL BORING MILL OPERATOR.ACCELERATOR SYSTEMS DIRECTOR Work Phone: [facility] 07-21-2024 09:05-0400 Body mass index (BMI) [Ratio] 26.76 kg/m2 Nora Queden HORIZONTAL BORING MILL OPERATOR.[facility] Work Phone: [facility] 07-21-2024 09:05-0400 Body temperature 98.4 [degF] Nora Queden HORIZONTAL BORING MILL OPERATOR.[facility] Work Phone: [facility] 07-21-2024 09:05-0400 Body weight 62.14 kg Nora Queden HORIZONTAL BORING MILL OPERATOR.[facility] Work Phone: [facility] 07-21-2024 09:05-0400 Diastolic blood pressure 60 mm[Hg] Nora Queden HORIZONTAL BORING MILL OPERATOR.[facility] Work Phone: [facility] 07-21-2024 09:05-0400 Heart rate 72 /min Nora Queden HORIZONTAL BORING MILL OPERATOR.[facility] Work Phone: [facility] 07-21-2024 09:05-0400 SaO2% (BldA) [Mass fraction] 98 % Nora Queden HORIZONTAL BORING MILL OPERATOR.[facility] Work Phone: [facility] 07-21-2024 09:05-0400 Systolic blood pressure 122 mm[Hg] Nora Queden HORIZONTAL BORING MILL OPERATOR.[facility] Work Phone: [facility] 03-29-2024 12:23-0400 Body mass index (BMI) [Ratio] 26.39 kg/m2 Julissa MORRISON Work Phone: [facility] 03-29-2024 12:23-0400 Body temperature 98.4 [degF] Krislyn Aberegg PA Work Phone: [facility] 03-29-2024 12:23-0400 Body weight 61.3 kg Krislyn Aberegg PA Work Phone: [facility] 03-29-2024 12:23-0400 Diastolic blood pressure 93 mm[Hg] Krislyn Aberegg PA Work Phone: [facility] 03-29-2024 12:23-0400 Heart rate 75 /min Krislyn Aberegg PA Work Phone: [facility] 03-29-2024 12:23-0400 Respiratory rate 18 /min Krislyn Aberegg PA Work Phone: [facility] 03-29-2024 12:23-0400 SaO2% (BldA) [Mass fraction] 100 % Krislyn Aberegg PA Work Phone: [facility] 03-29-2024 12:23-0400 Systolic blood pressure 154 mm[Hg] Krislyn Aberegg PA Work Phone: [facility] 02-21-2024 10:29-0400 Body height 152.4 cm Nora Cochranden H[employer]IZONTAL BORING MILL OPERATOR.ACCELERATOR SYSTEMS DIRECTOR Work Phone: [facility] 02-21-2024 10:29-0400 Body mass index (BMI) [Ratio] 26.95 kg/m2 Nora Queden H[employer]IZONTAL BORING MILL OPERATOR.ACCELERATOR SYSTEMS DIRECTOR Work Phone: [facility] 02-21-2024 10:29-0400 Body temperature 98.01 [degF] Nora Queden HORIZONTAL BORING MILL OPERATOR.ACCELERATOR SYSTEMS DIRECTOR Work Phone: [facility] 02-21-2024 10:29-0400 Body weight 62.6 kg Nora Queden HORIZONTAL BORING MILL OPERATOR.ACCELERATOR SYSTEMS DIRECTOR Work Phone: [facility] 02-21-2024 10:29-0400 Diastolic blood pressure 70 mm[Hg] Nora Queden HORIZONTAL BORING MILL OPERATOR.ACCELERATOR SYSTEMS DIRECTOR Work Phone: [facility] 02-21-2024 10:29-0400 Heart rate 82 /min Nora Queden HORIZONTAL BORING MILL OPERATOR.ACCELERATOR SYSTEMS DIRECTOR Work Phone: [facility] 02-21-2024 10:29-0400 Respiratory rate 16 /min Nora Queden HORIZONTAL BORING MILL OPERATOR.ACCELERATOR SYSTEMS DIRECTOR Work Phone: [facility] 02-21-2024 10:29-0400 SaO2% (BldA) [Mass fraction] 98 % Nora Queden HORIZONTAL BORING MILL OPERATOR.ACCELERATOR SYSTEMS DIRECTOR Work Phone: [facility] 02-21-2024 10:29-0400 Systolic blood pressure 122 mm[Hg] Nora Queden HORIZONTAL BORING MILL OPERATOR.ACCELERATOR SYSTEMS DIRECTOR Work Phone: [facility] 02-05-2024 16:35-0400 Body mass index (BMI) [Ratio] 28.01 kg/m2 Krislyn Aberegg PA Work Phone: [facility] 02-05-2024 16:35-0400 Body temperature 97.2 [degF] Krislyn Aberegg PA Work Phone: [facility] 02-05-2024 16:35-0400 Body weight 62.9 kg Krislyn Aberegg PA Work Phone: [facility] 02-05-2024 16:35-0400 Diastolic blood pressure 76 mm[Hg] Krislyn Aberegg PA Work Phone: [facility] 02-05-2024 16:35-0400 Heart rate 79 /min Krislyn Aberegg PA Work Phone: [facility] 02-05-2024 16:35-0400 Respiratory rate 18 /min Krislyn Aberegg PA Work Phone: [facility] 02-05-2024 16:35-0400 SaO2% (BldA) [Mass fraction] 96 % Krislyn Aberegg PA Work Phone: [facility] 02-05-2024 16:35-0400 Systolic blood pressure 126 mm[Hg] Krislyn Aberegg PA Work Phone: [facility] 01-08-2024 13:23-0400 Body height 152.4 cm [facility] 01-08-2024 13:23-0400 Body temperature 97.3 [degF] [facility] 01-08-2024 13:23-0400 Diastolic blood pressure 77 mm[Hg] [facility] 01-08-2024 13:23-0400 Heart rate 72 /min [facility] 01-08-2024 13:23-0400 Respiratory rate 14 /min [facility] 01-08-2024 13:23-0400 SaO2% (BldA) [Mass fraction] 100 % [facility] 01-08-2024 13:23-0400 Systolic blood pressure 153 mm[Hg] [facility] 09-12-2023 15:26-0500 Body temperature 97.5 [degF] Krislyn Aberegg PA Work Phone: [facility] 09-12-2023 15:26-0500 Body weight 63.41 kg Krislyn Aberegg PA Work Phone: [facility] 09-12-2023 15:26-0500 Diastolic blood pressure 82 mm[Hg] Krislyn Aberegg PA Work Phone: [facility] 09-12-2023 15:26-0500 Heart rate 61 /min Krislyn Aberegg PA Work Phone: [facility] 09-12-2023 15:26-0500 Respiratory rate 18 /min Krislyn Aberegg PA Work Phone: [facility] 09-12-2023 15:26-0500 SaO2% (BldA) [Mass fraction] 99 % Krislyn Aberegg PA Work Phone: [facility] 09-12-2023 15:26-0500 Systolic blood pressure 138 mm[Hg] Krislyn Aberegg PA Work Phone: [facility] 11-13-2023 12:00-0500 Body temperature 97.59 [degF] Julian Miguel MD Work Phone: [facility] 08-27-2023 12:00-0500 Body weight 64.77 kg Julian Miguel MD Work Phone: [facility] 08-27-2023 12:00-0500 Diastolic blood pressure 78 mm[Hg] uJlian Miguel MD Work Phone: [facility] 08-27-2023 12:00-0500 Heart rate 79 /min Julian Miguel MD Work Phone: [facility] 08-27-2023 12:00-0500 Respiratory rate 18 /min Julian Miguel MD Work Phone: [facility] 08-27-2023 12:00-0500 SaO2% (BldA) [Mass fraction] 97 % Julina Miguel MD Work Phone: [facility] 08-27-2023 12:00-0500 Systolic blood pressure 151 mm[Hg] Julian Miguel MD Work Phone: [facility] 02-23-2023 12:24-0400 Body temperature 97.81 [degF] Meera Praisler-Wood H[employer]IZONTAL BORING MILL OPERATOR.ACCELERATOR SYSTEMS DIRECTOR Work Phone: [facility] 02-23-2023 12:24-0400 Body weight 62.69 kg Meera Praisler-Wood HORIZONTAL BORING MILL OPERATOR.ACCELERATOR SYSTEMS DIRECTOR Work Phone: [facility] 02-23-2023 12:24-0400 Diastolic blood pressure 80 mm[Hg] Meera Praisler-Wood HORIZONTAL BORING MILL OPERATOR.ACCELERATOR SYSTEMS DIRECTOR Work Phone: [facility] 02-23-2023 12:24-0400 Heart rate 67 /min Meera Praisler-Wood HORIZONTAL BORING MILL OPERATOR.ACCELERATOR SYSTEMS DIRECTOR Work Phone: [facility] 02-23-2023 12:24-0400 Respiratory rate 16 /min Meera Praisler-Wood HORIZONTAL BORING MILL OPERATOR.ACCELERATOR SYSTEMS DIRECTOR Work Phone: [facility] 02-23-2023 12:24-0400 SaO2% (BldA) [Mass fraction] 99 % Meera WongvamsiShikhaMassimo HORIZONTAL BORING MILL OPERATOR.ACCELERATOR SYSTEMS DIRECTOR Work Phone: [facility] 02-23-2023 12:24-0400 Systolic blood pressure 122 mm[Hg] Meera Thierno HOGAN.ACCELERATOR SYSTEMS DIRECTOR Work Phone: [facility] 02-02-2023 09:32-0400 Body height 152.4 cm DO Sheliaasha Sennger Work Phone: [facility] 02-02-2023 09:32-0400 Body mass index (BMI) [Ratio] 27.3 kg/m2 DO Shelia Cedric Work Phone: [facility] 02-02-2023 09:32-0400 Body temperature 97.6 [degF] DO Shelia Cedric Work Phone: [facility] 02-02-2023 09:32-0400 Body weight 63.5 kg DO Shelia Cedric Work Phone: [facility] 02-02-2023 09:32-0400 Diastolic blood pressure 76 mm[Hg] DO Shelia Cedric Work Phone: [facility] 02-02-2023 09:32-0400 Heart rate 73 /min DO Shelia Cedric Work Phone: [facility] 02-02-2023 09:32-0400 Respiratory rate 18 /min DO Shelia Cedric Work Phone: [facility] 02-02-2023 09:32-0400 SaO2% (BldA) [Mass fraction] 97 % DO Shelia Cedric Work Phone: [facility] 02-02-2023 09:32-0400 Systolic blood pressure 138 mm[Hg] DO Shelia Cedric Work Phone: [facility] 01-14-2023 12:32-0400 Body mass index (BMI) [Ratio] 27.5 kg/m2 DO Shelia Cedric Work Phone: [facility] 01-14-2023 12:32-0400 Body temperature 97.7 [degF] DO Sheliaasha Sennger Work Phone: [facility] 01-14-2023 12:32-0400 Body weight 63.95 kg DO Shelia Cedric Work Phone: [facility] 01-14-2023 12:32-0400 Diastolic blood pressure 78 mm[Hg] DO Shelia Cedric Work Phone: [facility] 01-14-2023 12:32-0400 Heart rate 81 /min DO Shelia Cedric Work Phone: [facility] 01-14-2023 12:32-0400 Respiratory rate 20 /min DO Shelia Cedric Work Phone: [facility] 01-14-2023 12:32-0400 SaO2% (BldA) [Mass fraction] 99 % DO Shelia Cedric Work Phone: [facility] 01-14-2023 12:32-0400 Systolic blood pressure 130 mm[Hg] DO Shelia Sennger Work Phone: [facility] 11-14-2022 17:10-0500 Body temperature 96.91 [degF] Meera Praisler-Wood HORIZONTAL BORING MILL OPERATOR.ACCELERATOR SYSTEMS DIRECTOR Work Phone: [facility] 11-14-2022 17:10-0500 Body weight 63.32 kg Meera Praisler-Wood HORIZONTAL BORING MILL OPERATOR.ACCELERATOR SYSTEMS DIRECTOR Work Phone: [facility] 11-14-2022 17:10-0500 Diastolic blood pressure 88 mm[Hg] Meera Praisler-Wood HORIZONTAL BORING MILL OPERATOR.ACCELERATOR SYSTEMS DIRECTOR Work Phone: [facility] 11-14-2022 17:10-0500 Heart rate 76 /min Meera Praisler-Wood HORIZONTAL BORING MILL OPERATOR.ACCELERATOR SYSTEMS DIRECTOR Work Phone: [facility] 11-14-2022 17:10-0500 Respiratory rate 16 /min Meera Praisler-Wood HORIZONTAL BORING MILL OPERATOR.ACCELERATOR SYSTEMS DIRECTOR Work Phone: [facility] 11-14-2022 17:10-0500 SaO2% (BldA) [Mass fraction] 97 % Meera Pa HORIZONTAL BORING MILL OPERATOR.ACCELERATOR SYSTEMS DIRECTOR Work Phone: [facility] 11-14-2022 17:10-0500 Systolic blood pressure 138 mm[Hg] Meera Pa HORIZONTAL BORING MILL OPERATOR.ACCELERATOR SYSTEMS DIRECTOR Work Phone: [facility] 10-10-2022 15:04-0500 Body temperature 98.2 [degF] Dr. María Marion Work Phone: [facility] 10-10-2022 15:04-0500 Diastolic blood pressure 70 mm[Hg] Dr. María Marion Work Phone: [facility] 10-10-2022 15:04-0500 Heart rate 82 /min Dr. María Mairon Work Phone: [facility] 10-10-2022 15:04-0500 Respiratory rate 18 /min Dr. María Marion Work Phone: [facility] 10-10-2022 15:04-0500 SaO2% (BldA) [Mass fraction] 99 % Dr. María Marion Work Phone: [facility] 10-10-2022 15:04-0500 Systolic blood pressure 104 mm[Hg] Dr. María Marion Work Phone: [facility] Encounters Encounter Date Encounter Type Care Provider Facility Start: 06-01-2025 End: 06-01-2025 ambulatory Nora Robertson H[employer]IZONTAL B[employer]ING MILL OPERATOR.ACCELERATOR SYSTEMS DIRECTOR Work Phone: [facility] Start: 06-01-2025 End: 06-01-2025 Follow-up encounter Nora Robertson HORIZONTAL BORING MILL OPERATOR.ACCELERATOR SYSTEMS DIRECTOR Work Phone: [facility] Comment on above: ED Follow-up ([facility] ED 05/27/2025) Start: 05-27-2025 End: 05-27-2025 Emergency department patient visit Dr. Edgar Le DO Work Phone: -Emergency Department Work Phone: Start: 03-19-2025 End: 03-19-2025 Telephone encounter Jessica June DO Work Phone: [facility] Comment on above: Appointment (Schedul ing) Start: 03-16-2025 End: 03-17-2025 Follow-up encounter Nora Robertson APRN.ACCELERATOR SYSTEMS DIRECTOR Work Phone: [facility] Comment on above: Results Start: 03-16-2025 End: 03-16-2025 Telephone encounter Clara Mariee MD Work Phone: [facility] Comment on above: Appointment (EMG Ref erral) Start: 02-25-2025 End: 02-25-[address] [facility] Facility:[facility] Start: 02-24-2025 End: 02-24-2025 Patient encounter procedure Nora Robertson APRN.ACCELERATOR SYSTEMS DIRECTOR Work Phone: [facility] Comment on above: Essential hypertensi on (Primary Dx); Numbness and tingling in left hand; Pain in right foot; Mild episode of recurrent major depressive disorder; Generalized anxiety disorder; Iron deficiency anemia, unspecified iron deficiency anemia type; Vitamin D deficiency; Screening for lipid disorders; Screening for thyroid disorder; Screening for diabetes mellitus; Encounter for screening mammogram for malignant neoplasm of breast; Screening for colon cancer Start: 02-24-2025 End: 02-24-2025 [address] [facility] Facility:[facility] Start: 02-18-2025 End: 02-18-2025 Subsequent hospital visit by physician Diego [facility] [place] Work Phone: Radiology Comment on above: Foot pain, right [M7 9.671] Start: 02-18-2025 End: 02-18-2025 Patient encounter procedure Julissa MORRISON Work Phone: [facility] Comment on above: Foot pain, right (Pr imary Dx) Start: 02-18-2025 End: 02-18-[address] [facility] Facility:[facility] Start: 11-19-2024 End: 11-19-2024 Refill Nora A Marcelo HORIZONTAL BORING MILL OPERATOR.ACCELERATOR SYSTEMS DIRECTOR Work Phone: [facility] Comment on above: Refill Request Start: 11-14-2024 End: 11-14-2024 Telephone encounter Monique Toro HORIZONTAL BORING MILL OPERATOR.ACCELERATOR SYSTEMS DIRECTOR Work Phone: [facility] Comment on above: Results Start: 11-12-2024 End: 11-12-2024 ambulatory NORAJACKIE ROBERTSON Facility:[facility] Start: 11-12-2024 End: 11-12-2024 Office outpatient visit 25 minutes Yandel De La Rosa PA-C Work Phone: [facility] Comment on above: Painful urination (P rimary Dx); Acute UTI Start: 10-16-2024 End: 10-16-2024 ambulatory Nora Robertson ANALYTICS LEAD Facility:[facility] Start: 09-24-2024 End: 09-24-2024 Telephone encounter Nora Earnestine Marcelo HORIZONTAL BORING MILL OPERATOR.ACCELERATOR SYSTEMS DIRECTOR Work Phone: [facility] Comment on above: Results Start: 09-18-2024 End: 09-18-2024 ambulatory NORAJACKIE ROBERTSON Facility:[facility] Start: 09-18-2024 End: 09-18-2024 Patient encounter procedure Nora A Marcelo HORIZONTAL BORING MILL OPERATOR.ACCELERATOR SYSTEMS DIRECTOR Work Phone: [facility] Comment on above: Well woman exam with routine gynecological exam (Primary Dx); Upper back pain; Screening for cervical cancer; Screening for colon cancer Start: 09-06-2024 ambulatory Nora Dimasden ANALYTICS LEAD Facil ity:[facility] Start: 09-05-2024 End: 09-05-2024 ambulatory Baltazar Hoang Facility:[facility] Start: 09-05-2024 ambulatory Nora Dimasden ANALYTICS LEAD Facil ity:[facility] Start: 09-05-2024 End: 09-06-2024 Evaluation and management of inpatient Gregoria Ambrocio Facility:[facility] Start: 07-21-2024 End: 07-21-2024 Patient encounter procedure Nora Robertson HORIZONTAL BORING MILL OPERATOR.ACCELERATOR SYSTEMS DIRECTOR Work Phone: [facility] Comment on above: Moderate episode of recurrent major depressive disorder (HCC) (Primary Dx); Essential hypertension; Chronic pain of left knee; Primary osteoarthritis of left knee; Vitamin D deficiency; Encounter for immunization; Colon cancer screening Start: 07-21-2024 End: 07-21-2024 ambulatory NORA ROBERTSON Facility:[facility] Start: 07-09-2024 End: 07-09-2024 Refill Nora Robertson HORIZONTAL BORING MILL OPERATOR.ACCELERATOR SYSTEMS DIRECTOR Work Phone: [facility] Comment on above: Refill Request Start: 06-24-2024 End: 06-24-2024 ambulatory Chayito Norris [facility] Comment on above: ED OUTREACH (ED OUTR VIRAL/BRITANY /06/17/2024) Start: 06-17-2024 End: 06-17-2024 Emergency department patient visit Nora Robertson ANALYTICS LEAD Facility:[facility] Start: 05-30-2024 Telephone encounter Nora Robertson APRN.ACCELERATOR SYSTEMS DIRECTOR Work Phone: [facility] Comment on above: Lab Orders Start: 04-01-2024 ambulatory Beatrice Montoyaser KICK PRESS OPERATOR [facility] Start: 03-30-2024 ambulatory Lata Friend LPN NURSE O N CALL Comment on above: Return Provider Call Start: 03-30-2024 Telephone encounter Julissa MORRISON Work Phone: [facility] Comment on above: Results Start: 03-29-2024 End: 03-29-2024 ambulatory NORA ROBERTSON Facility:[facility] Start: 03-29-2024 End: 03-29-2024 Patient encounter procedure Julissa MORRISON Work Phone: [facility] Comment on above: Viral illness (Prima ry Dx) Start: 02-27-2024 Telephone encounter Nora Robertson HORIZONTAL BORING MILL OPERATOR.ACCELERATOR SYSTEMS DIRECTOR Work Phone: [facility] Comment on above: Results Start: 02-21-2024 End: 02-21-2024 Patient encounter procedure Nora Robertson APRN.ACCELERATOR SYSTEMS DIRECTOR Work Phone: [facility] Comment on above: Well adult exam (Lenka chayito Dx); Essential hypertension; Mild episode of recurrent major depressive disorder (HCC); Vitamin D deficiency; Fatigue, unspecified type; History of iron deficiency; Screening for lipid disorders; Screening for thyroid disorder; Screening for colon cancer; Encounter for screening mammogram for breast cancer Start: 02-21-2024 End: 02-21-2024 Patient encounter status Nora Earnestine Robertson APRN.ACCELERATOR SYSTEMS DIRECTOR Work Phone: [facility] Work Phone: Start: 02-18-2024 End: 02-18-2024 Patient encounter procedure Holli Alfaro MD Work Phone: [facility] Comment on above: Blurred vision, bila teral (Primary Dx); Refractive error; Pseudophakia; Dry eye syndrome, bilateral Start: 02-05-2024 End: 02-05-2024 Patient encounter procedure Julissa MORRISON Work Phone: [facility] Comment on above: Bacterial sinusitis (Primary Dx); Fatigue, unspecified type Start: 01-08-2024 End: 01-08-2024 Emergency department patient visit [facility] Work Phone: Start: 09-27-2023 End: 09-27-2023 ambulatory [facility] Work Phone: Start: 09-27-2023 End: 09-27-2023 Patient encounter procedure [facility] Start: 09-12-2023 End: 09-12-2023 Subsequent hospital visit by physician [facility] Work Phone: Radiology Comment on above: Acute cough [R05.1] Start: 09-12-2023 End: 09-12-2023 Patient encounter procedure Julissa MORRISON Work Phone: [facility] Comment on above: Acute cough (Primary Dx); Bacterial sinusitis Start: 08-28-2023 Telephone encounter Anibal calderón APRN.ACCELERATOR SYSTEMS DIRECTOR Work Phone: [facility] Comment on above: Results Start: 08-27-2023 End: 08-27-2023 Patient encounter procedure Julian Miguel MD Work Phone: [facility] Comment on above: URI, acute (Primary Dx) Start: 07-19-2023 End: 07-19-2023 Patient encounter procedure [facility] Work Phone: Start: 06-26-2023 End: 06-26-2023 ambulatory [facility] Work Phone: Start: 06-26-2023 End: 06-26-2023 Patient encounter procedure [facility] Start: 02-23-2023 End: 02-23-2023 Patient encounter procedure Meera Pa APRN.ACCELERATOR SYSTEMS DIRECTOR Work Phone: [facility] Comment on above: Rash (Primary Dx) Start: 02-02-2023 End: 02-02-2023 Patient encounter procedure DO Shelia Steele Work Phone: [facility]-Pulmonary Medicine [facility] Start: 01-14-2023 End: 01-14-2023 Patient encounter procedure DO Shelia Steele Work Phone: [facility] Start: 11-30-2022 End: 11-30-2022 ambulatory DO Shelia Steele Work Phone: [facility] Work Phone: Start: 11-30-2022 End: 11-30-2022 Discharged Recurring DO Shelia Steele Work Phone: [facility]-Physical Therapy Start: 11-23-[address] María Marion Work Phone: [facility] Start: 11-16-2022 End: 11-16-[address] María Maroin Work Phone: [facility] Work Phone: Start: 11-16-2022 End: 11-16-[address] María Marion Work Phone: [facility] Start: 11-14-2022 End: 11-14-2022 Patient encounter procedure Meera Pa HORIZONTAL BORING MILL OPERATOR.ACCELERATOR SYSTEMS DIRECTOR Work Phone: [facility] Comment on above: Arthritis pain (Prim malathi Dx); Essential hypertension Start: 10-10-2022 End: 10-10-[address] María Marion Work Phone: [facility] Start: 09-22-2022 End: 09-22-[address] María Marion Work Phone: [facility] Start: 09-13-2022 End: 09-13-[address] María Marion Work Phone: [facility] Start: 08-30-2022 End: 08-30-[address] María Marion Work Phone: [facility] Start: 08-28-2022 End: 08-28-[address] María Marion Work Phone: [facility] Procedures Date Procedure Procedure Detail Performing Clinician Start: 05-27-2025 Methadone measuremen t, urine Dr. Edgar Lima Work Phone: Start: 05-27-2025 Urnls dip stick/tabl et reagent auto microscopy Dr. Edgar Lima Work Phone: Start: 05-27-2025 Plain chest X-ray Dr. Say Lima Work Phone: Start: 05-27-[address] Edgar Lima Work Phone: Start: 02-25-2025 Lipid 1996 panel - S maverick or Plasma Nora Robertson APRN.[facility] Work Phone: Start: 02-18-2025 Radex foot complete minimum 3 views Julissa MORRISON Work Phone: Start: 11-12-2024 Urnls dip stick/tabl et rgnt auto w/o microscopy Lynsey Aburto HORIZONTAL BORING MILL OPERATOR.ACCELERATOR SYSTEMS DIRECTOR Work Phone: Start: 02-22-2024 Lipid 1996 panel - S maverick or Plasma Nora Robertson APRN.ACCELERATOR SYSTEMS DIRECTOR Work Phone: Start: 09-12-2023 Radiologic exam ches t 2 views Julissa MORRISON Work Phone: Start: 07-19-2023 Plain X-ray of shoulder Start: 08-28-2022 Radiologic examinati on of knee Dr. María Marion Work Phone: Start: 06-29-2017 Mammography Meera Mendez APRN.[facility] Work Phone: Start: 05-02-2016 Lipid 1996 panel - S maverick or Plasma Julian Miguel MD Work Phone: Start: 09-04-2011 Colonoscopy Meera Mendez APRN.[facility] Work Phone: Plan of Treatment Date Care Activity Detail Author Start: 04-01-2030 Urine microalbumin profile DTaP,Tdap,Td Vaccine (3 - Td or Tdap) [facility] Start: 02-25-2030 Lipid panel Lipid Screening [facility] Start: 09-18-2029 Screening for malign ant neoplasm of cervix Cervical Cancer Screening [facility] Start: 02-21-2029 Lipid panel Lipid Screening [facility] Start: 02-26-2028 Diabetes Screening Diabetes Screenin g [facility] Start: 02-21-2027 Diabetes Screening Diabetes Screenin g [facility] Start: 02-24-2026 Annual PCP Team Marketing Program Manager zeke Disease Visit Annual PCP Team Chronic Disease Visit [facility] Start: 02-24-2026 HIV screening HIV Screening [facility] Comment on above: Postponed from 06/22 (Declined at this time) Start: 09-18-2025 Annual PCP Team Marketing Program Manager zeke Disease Visit Annual PCP Team Chronic Disease Visit [facility] Start: 09-18-2025 BP Controlled (<130/80) BP Controlle d (<130/80) [facility] Start: 07-21-2025 Annual PCP Team Marketing Program Manager zeke Disease Visit Annual PCP Team Chronic Disease Visit [facility] Start: 07-21-2025 Anxiety Screening Anxiety Screening [facility] Comment on above: Postponed from 06/22 (Declined at this time) Start: 07-21-2025 BP Controlled (<130/80) BP Controlle d (<130/80) [facility] Start: 07-21-2025 Covid-19 Vaccine () Covid-19 Vaccine () [facility] Comment on above: Postponed from 06/15 (Declined at this time) Start: 06-15-2025 Influenza vaccination Influenza Vacc ine (#1) [facility] Start: 05-27-2025 End: 05-27-2025 [facility] Start: 02-24-2025 End: 02-24-2025 Patient encounter procedure 02/24/2025 2:00 PM EDT Office Visit [facility] [address] [place] [address] Nora Robertson, HORIZONTAL BORING MILL OPERATOR.[facility] [address] [place] [address] Concerns of falling, abnormal blood work, and other medical concerns [facility] Comment on above: Concerns of falling, abnormal blood work, and other medical concerns Start: 02-20-2025 Annual PCP Team Marketing Program Manager zeke Disease Visit Annual PCP Team Chronic Disease Visit [facility] Start: 02-20-2025 BP Controlled (<130/80) BP Controlle d (<130/80) [facility] Start: 02-20-2025 Covid-19 Vaccine () Covid-19 Vaccine () [facility] Comment on above: Postponed from 06/15 (Declined at this time) Start: 02-20-2025 HIV screening HIV Screening [facility] Comment on above: Postponed from 06/22 (Declined at this time) Start: 02-04-2025 BP Controlled (<130/80) BP Controlle d (<130/80) [facility] Start: 08-25-2024 End: 08-25-2024 Patient encounter procedure 08/25/2024 10:40 AM EST Office Visit [facility] [address] [place] [address] Nora Robertson APRN.ACCELERATOR SYSTEMS DIRECTOR [address] [place] [address] 6 MTH F/U HYPERLIPIDEMIA AND HTN [facility] Comment on above: 6 MTH F/U HYPERLIPID EMIA AND HTN Start: 07-21-2024 End: 07-21-2024 Patient encounter procedure 07/21/2024 9:20 AM EDT Office Visit [facility] [address], [place] [id number] Nora Robertson, HORIZONTAL BORING MILL OPERATOR.ACCELERATOR SYSTEMS DIRECTOR [address] [place] [address] med refill [facility] Comment on above: med refill Start: 06-15-2024 Covid-19 Vaccine ( season) Covid-19 Vaccine ( season) [facility] Start: 06-15-2024 Covid-19 Vaccine ( season) Covid-19 Vaccine ( season) [facility] Start: 06-15-[address] [facility] Start: 03-29-2024 End: 04-12-2024 COVID & INFLUENZA A/B & RSV NAAT, ROUTINE COVID & INFLUENZA A/B & RSV NAAT, ROUTINE Microbiology Routine Viral illness Expected: 03/29/2024, Expires: 04/12/2024 [facility] Work Phone: Comment on above: Expected: 03/29/2024 , Expires: 04/12/2024 Start: 02-21-2024 End: 08-08-2024 25-hydroxyvitamin D3 [Mass/volume] in Serum or Plasma VITAMIN D 25 HYDROXY Lab Routine Well adult exam Fatigue, unspecified type Vitamin D deficiency Expected: 02/21/2024, Expires: 05/22/2024 [facility] Comment on above: Expected: 02/21/2024 , Expires: 05/22/2024 Start: 02-21-2024 End: 05-22-2024 CBC W Auto Differential panel - Blood COMPLETE BLOOD COUNT AND DIFFERENTIAL Lab Routine Well adult exam History of iron deficiency Fatigue, unspecified type Expected: 02/21/2024, Expires: 05/22/2024 [facility] Comment on above: Expected: 02/21/2024 , Expires: 05/22/2024 Start: 02-21-2024 End: 05-22-2024 Comprehensive metabolic 2000 panel - Serum or Plasma COMPREHENSIVE METABOLIC PANEL Lab Routine Well adult exam Expected: 02/21/2024, Expires: 05/22/2024 [facility] Comment on above: Expected: 02/21/2024 , Expires: 05/22/2024 Start: 02-21-2024 End: 05-22-2024 Hemoglobin A1c in Blood HEMOGLOBIN A1C Lab Routine Well adult exam Expected: 02/21/2024, Expires: 05/22/2024 [facility] Comment on above: Expected: 02/21/2024 , Expires: 05/22/2024 Start: 02-21-2024 End: 05-22-2024 Lipid 1996 panel - Serum or Plasma LIPID PANEL BASIC Lab Routine Well adult exam Screening for lipid disorders Expected: 02/21/2024, Expires: 05/22/2024 [facility] Work Phone: Comment on above: Expected: 02/21/2024 , Expires: 05/22/2024 Start: 02-21-2024 End: 05-22-2024 Thyrotropin [Units/volume] in Serum or Plasma THYROID STIMULATING HORMONE Lab Routine Well adult exam Screening for thyroid disorder Expected: 02/21/2024, Expires: 05/22/2024 [facility] Comment on above: Expected: 02/21/2024 , Expires: 05/22/2024 Start: 02-21-2024 End: 02-21-2024 Patient encounter procedure 02/21/2024 10:40 AM EDT Office Visit [facility] [address] [place] [address] Nora Robertson APRN.ACCELERATOR SYSTEMS DIRECTOR [address] [place] [address] new pt [facility] Comment on above: new pt Start: 01-08-2024 [facility] Start: 08-27-2023 End: 09-10-2023 Influenza virus A and B RNA and SARS-CoV-2 (COVID-19) N gene panel - Respiratory specimen by LILIBETH with probe detection [facility] Work Phone: Comment on above: Expected: 08/27/2023 , Expires: 09/10/2023 Start: 06-15-2023 Covid-19 Vaccine ( season) Covid-19 Vaccine () [facility] Start: 06-15-[address] [facility] Start: 08-28-[address] [facility] Work Phone: Start: 06-15-2022 Influenza vaccination INFLUENZA (#1) [facility] Start: 06-12-2022 Urine microalbumin profile DTAP,TDAP,TD (2 - Td or Tdap) [facility] Start: 11-14-2021 COVID-19 VACCINE (4 - Booster for Pfizer series) COVID-19 VACCINE (4 - Booster for Pfizer series) [facility] Start: 09-04-2021 Colonoscopy COLONOSCOPY [facility] Start: 09-04-2021 COLORECTAL CANCER SCREENING COLORECTAL CANCER SCREENING [facility] Start: 09-04-2021 Screening for malign ant neoplasm of colon [facility] Start: 05-02-2021 Lipid 1996 panel - S maverick or Plasma Lipid Screening [facility] Start: 05-02-2021 Lipid panel Lipid Screening [facility] Start: 05-02-2021 LIPID SCREEN LIPID SCREEN [facility] Start: 05-02-2019 DIABETES SCREEN DIABETES SCREEN [facility] Start: 05-02-2019 Diabetes Screening Diabetes Screenin g [facility] Start: 02-19-2019 ANNUAL PCP TEAM SEPTIC CLEANER ZEKE DISEASE VISIT ANNUAL PCP TEAM CHRONIC DISEASE VISIT [facility] Start: 06-29-2018 Mammography [facility] Start: 06-29-2018 Screening for malign ant neoplasm of breast Mammogram Screening [facility] Start: 11-11-2017 PAP TESTING PAP TESTING [facility] Start: 11-11-2017 Screening for malign ant neoplasm of cervix [facility] Start: 08-08-2016 HPV TESTING HPV TESTING [facility] Start: 08-08-2016 Screening for malign ant neoplasm of cervix HPV Testing [facility] Start: 2015 Pneumococcal Vaccine : 50+ (1 of 1 - PCV) Pneumococcal Vaccine: 50+ (1 of 1 - PCV) [facility] Start: 2015 SHINGRIX VACCINE (1 of 2) CENTENO GRIX VACCINE (1 of 2) [facility] Start: 06-20-2013 FECAL OCCULT BLOOD FECAL OCCULT BLOO D [facility] Start: 06-20-2013 Screening for malign ant neoplasm of colon Fecal Occult Blood [facility] Start: 2010 COLOGUARD (FIT-DNA) COLOGUARD (FIT-D NA) [facility] Start: [address] COLONOGRAPHY [facility] Start: 2010 Screening for malign ant neoplasm of colon [facility] Start: 2010 SIGMOIDOSCOPY SIGMOIDOSCOPY [facility] Start: 1984 Hepatitis B Vaccine (1 of 3 - 19+ 3-dose series) Hepatitis B Vaccine (1 of 3 - 19+ 3-dose series) [facility] Start: 1983 ANNUAL PCP TEAM SEPTIC CLEANER ZEKE DISEASE VISIT ANNUAL PCP TEAM CHRONIC DISEASE VISIT [facility] Start: 1983 Anxiety Screening Anxiety Screening [facility] Start: 1983 BP CONTROLLED (<130/80) BP CONTROLLE D (<130/80) [facility] Start: 1983 HIV SCREENING HIV SCREENING [facility] Start: 1983 HIV screening HIV Screening [facility] Start: 1965 HEPATITIS B (1 of 3 - 3-dose series) HEPATITIS B (1 of 3 - 3-dose series) [facility] Start: 1965 Hepatitis B Vaccine (1 of 3 - 3-dose series) Hepatitis B Vaccine (1 of 3 - 3-dose series) [facility] Bacteria identified in Urine by Culture BACTERIAL CULTURE, URINE Microbiology Routine Acute UTI Ordered: 11/12/2024 [facility] Work Phone: Comment on above: Ordered: 11/12/2024 End: 03-26-2026 DBT Breast - bilateral screening [facility] Routine Encounter for screening mammogram for malignant neoplasm of breast 1 Occurrences starting 02/24/2025 until 03/26/2026 [facility] Comment on above: 1 Occurrences starti ng 02/24/2025 until 03/26/2026 End: 02-24-2026 EMG(NEURO/NI) EMG(NEURO/NI) EMG Routine Numbness and tingling in left hand 1 Occurrences starting 02/24/2025 until 02/24/2026 [facility] Work Phone: Comment on above: 1 Occurrences starti ng 02/24/2025 until 02/24/2026 HIGH RISK HUMAN ANA LLOMA VIRUS (HPV), PCR FOR DETECTION AND GENOTYPING HIGH RISK HUMAN PAPILLOMA VIRUS (HPV), PCR FOR DETECTION AND GENOTYPING Lab Routine Screening for cervical cancer 09/18/2024 4:04 PM [facility] Im adm prq id subq/i m njxs 1 vaccine IMADM PRQ ID SUBQ/IM NJXS 1 VACC Immunization/Injection Routine Encounter for immunization Ordered: 07/21/2024 [facility] Work Phone: Comment on above: Ordered: 07/21/2024 End: 03-22-2025 MG Breast Screening [facility] Routine Encounter for screening mammogram for breast cancer 1 Occurrences starting 02/21/2024 until 03/22/2025 [facility] Comment on above: 1 Occurrences starti ng 02/21/2024 until 03/22/2025 PAP TEST PAP TEST Lab Rou mariza Screening for cervical cancer 09/18/2024 4:04 PM [facility] Work Phone: Patient Education [facility] Work Phone: Patient referral [facility] Work Phone: Polysomnography [facility] Immunizations Immunization Date Immunization Notes Care Provider Fa sylvesterty 07-21-2024 influenza, seasonal, injectable Nora Robertson HORIZONTAL BORING MILL OPERATOR.ACCELERATOR SYSTEMS DIRECTOR Work Phone: [facility] 07-21-2024 influenza virus vaccine, unspecified formulation Nora Queden HORIZONTAL BORING MILL OPERATOR.ACCELERATOR SYSTEMS DIRECTOR Work Phone: [facility] 09-19-2021 Covid (Moderna) Dr. María talamantes Work Phone: [facility] 09-19-2021 influenza, injectabl e, quadrivalent, preservative free [facility] 09-19-2021 influenza, seasonal, injectable Dr. María Marion Work Phone: [facility] 09-19-2021 influenza virus vaccine, unspecified formulation Julian Miguel MD Work Phone: [facility] 01-26-2021 Covid (Pfizer) Dr. María barrett Work Phone: [facility] 01-05-2021 Covid (Pfizer) Dr. María barrett Work Phone: [facility] 2020 influenza, injectabl e, quadrivalent, contains preservative Nora Queden HORIZONTAL BORING MILL OPERATOR.ACCELERATOR SYSTEMS DIRECTOR Work Phone: [facility] 04-01-2020 tetanus toxoid, redu yanet diphtheria toxoid, and acellular pertussis vaccine, adsorbed Dr. María Marion Work Phone: [facility] 06-10-2019 influenza, injectabl e, quadrivalent, contains preservative Nora Queden HORIZONTAL BORING MILL OPERATOR.ACCELERATOR SYSTEMS DIRECTOR Work Phone: [facility] 07-17-[address] María Marion Work Phone: [facility] 07-11-2018 influenza, injectabl e, quadrivalent, preservative free Nora Queden HORIZONTAL BORING MILL OPERATOR.ACCELERATOR SYSTEMS DIRECTOR Work Phone: [facility] 05-21-[address] Maíra Marion Work Phone: [facility] 07-07-2016 influenza, injectabl e, quadrivalent, contains preservative Meera Pa HORIZONTAL BORING MILL OPERATOR.ACCELERATOR SYSTEMS DIRECTOR Work Phone: [facility] 08-17-2014 influenza, seasonal, injectable Meeraapple Pa HORIZONTAL BORING MILL OPERATOR.ACCELERATOR SYSTEMS DIRECTOR Work Phone: [facility] 09-26-2013 influenza virus vaccine, unspecified formulation Meera WongDayana HORIZONTAL BORING MILL OPERATOR.ACCELERATOR SYSTEMS DIRECTOR Work Phone: [facility] 06-12-2012 tetanus toxoid, redu yanet diphtheria toxoid, and acellular pertussis vaccine, adsorbed Meera Pa HORIZONTAL BORING MILL OPERATOR.ACCELERATOR SYSTEMS DIRECTOR Work Phone: [facility] Work Phone: 10-18-2011 influenza virus vaccine, unspecified formulation [employer] [place] [employer] OPERATOR.ACCELERATOR SYSTEMS DIRECTOR Work Phone: [facility] 10-27-2010 influenza virus vaccine, unspecified formulation Meera JimEllie H[employer]IZONTAL [employer]ING MILL OPERATOR.ACCELERATOR SYSTEMS DIRECTOR Work Phone: [facility] Payers Date Payer Category Payer Self-pay [id number] 2017 Medicaid [id number] [facility] [employer] [facility] [id number] Unknown [id number] Unknown [id number] 2.16.8 [id number] Unknown [id number] 2.16.8 [id number] Unknown [id number] 2.16.8 [id number] Unknown [id number] 2.16.8 [id number] Unknown [id number] 2.16.8 [id number] Unknown [id number] 2.16.8 [id number] Unknown [id number] 2.16.8 [id number] Unknown [id number] 2.16.8 [id number] Unknown [id number] 2.16.8 [id number] Social History Date Type Detail Facility Start: 05-27-2025 Tobacco smoking stat us PRIS Never smoked tobacco [facility] Work Phone: Start: 11-14-2022 End: 02-18-2025 Alcohol intake Current non-drinker of alcohol (finding) [facility] Start: 1965 Sex Assigned At Not on file [facility] Start: 10-10-2022 End: 01-08-2024 Tobacco smoking status PRIS Unknown if ever smoked [facility] Start: 1965 Sex Assigned At Female [facility] Start: 08-27-2023 End: 07-21-2024 History of Social function [facility] Start: 08-27-2023 End: 07-21-2024 Tobacco use panel [facility] Start: 09-15-2012 Adult Depression Screening Assessment 2 [facility] Start: 02-24-2025 End: 03-16-2025 Alcoholic beverage intake Lifetime non-drinker (finding) [facility] Functional Status Date Assessment Result Facility 03-26-2015 Are you deaf, or do you have serious difficulty hearing No 03/26/2015 9:53 AM Lata Hernandez RN No [facility] 03-26-2015 Are you blind, or do you have serious difficulty seeing, even when wearing glasses No 03/26/2015 9:53 AM Lata Hernandez RN No [facility] 03-26-2015 Do you have serious difficulty walking or climbing stairs No 03/26/2015 9:53 AM Lata Hernandez RN No [facility] 03-26-2015 Do you have difficul ty dressing or bathing No 03/26/2015 9:53 AM Lata Hernandez RN No [facility] 03-26-2015 Because of a physica l, mental, or emotional condition, do you have difficulty doing errands alone such as visiting a physician's office or shopping No 03/26/2015 9:53 AM EDT Lata Trujillo RN No [facility] Mental Status Date Assessment Result Facility 05-27-2025 Cognitive function Voice/Name [facility] Work Phone: 01-08-2024 Cognitive function Level Of Cons ciousness Awake;Alert;Appropriate;Fol lows Commands [facility] Work Phone: 03-26-2015 Because of a physica l, mental, or emotional condition, do you have serious difficulty concentrating, remembering, or making decisions No 03/26/2015 9:53 AM EDLata Messer RN No [facility] Clinical Notes 01-23-2013 to 06-01-2025 Beatrice Ewing LPN - 06/01/2025 10:49 AM EDTTelephone Encounter - Shawanda Dai - 03/19/2025 2:27 PM EDTTelephone Encounter - Shawanda Dai - 03/19/2025 2:27 PM EDTPatient Instructions Note Date & Type Note Facility 06-01-2025 Note HNO ID: [id number] Author: BEATRICE EWING LPN Service: ? Author Type: Licensed Nurse Type: Progress Notes Filed: 06/01/2025 10:56 Note Text: ED Follow-Up Note Provider Action / FYI: Per pt she is doing okay. Pt would like to schedule ER follow up. Call transferred to Call center to schedule. Beatrice Ewing LPN Call completed by: RASHID Patient seen in ED: Out of Network ED Contact made with Patient: Yes The patient was identified by Name and Date of . Discussed Care with: patient Patient was seen in the Emergency Department (ED) Location: [place] Date: 05/27/2025 Reason for ED Visit: Accidental marijuana overdose ED Intervention: chest xray UA Labs EKG New Medications: None Medication Changes: None Does patient understand medication changes: N/A Can patient afford medication changes: N/A Patient educated on worsening symptoms and when and where to seek additional care: No Patient Education Provided including treatment plan and new orders. Patient provided with appropriate counseling: Yes [facility] 06-01-2025 History of Presen t illness Narrative ED Follow-Up Note Provider Action / FYI: Per pt she is doing okay. Pt would like to schedule ER follow up. Call transferred to Call center to schedule. Beatrice Ewing LPN Call completed by: RASHID Patient seen in ED: Out of Network ED Contact made with Patient: Yes The patient was identified by Name and Date of . Discussed Care with: patient Patient was seen in the Emergency Department (ED) Location: [place] Date: 05/27/2025 Reason for ED Visit: Accidental marijuana overdose ED Intervention: chest xray UA Labs EKG New Medications: None Medication Changes: None Does patient understand medication changes: N/A Can patient afford medication changes: N/A Patient educated on worsening symptoms and when and where to seek additional care: No Patient Education Provided including treatment plan and new orders. Patient provided with appropriate counseling: Yes documented in this encounter [facility] 06-01-2025 Note Patient Outreach (AG FAMPLE) SUHAS ABURTO ([id number]) 1965 F Date Time Provider Department 06/01/25 NORA ROBERTSON During your visit today, we recorded the following information about you: Beatrice Ewing LPN 06/01/2025 10:56 AM Signed ED Follow-Up Note Provider Action / FYI: Per pt she is doing okay. Pt would like to schedule ER follow up. Call transferred to Call center to schedule. Beatrice Ewing LPN Call completed by: RASHID Patient seen in ED: Out of Network ED Contact made with Patient: Yes The patient was identified by Name and Date of . Discussed Care with: patient Patient was seen in the Emergency Department (ED) Location: [place] Date: 05/27/2025 Reason for ED Visit: Accidental marijuana overdose ED Intervention: chest xray UA Labs EKG New Medications: None Medication Changes: None Does patient understand medication changes: N/A Can patient afford medication changes: N/A Patient educated on worsening symptoms and when and where to seek additional care: No Patient Education Provided including treatment plan and new orders. Patient provided with appropriate counseling: Yes Allergies As of Date: 06/01/2025 Noted Allergy Reaction ATORVASTATIN 03/31/2024 14 - Other: See Comments SULFA (SULFONAMIDE ANTIBIOTICS) 10/19/2006 Comments: itching, rash Date Reviewed: 03/16/2025 Reviewed by: Nora Robertson APRN.ACCELERATOR SYSTEMS DIRECTOR - Fully Assessed Reason for Visit: ED Follow-up [821] Cmt: [facility] 05/27/2025 Prescriptions as of 06/01/2025 - atenolol (TENORMIN) 25 mg tablet Take 1 tablet by mouth once daily. - Cholecalciferol, Vitamin D3, 25 mcg (1,000 unit) cap Take 1 capsule by mouth once daily. - FLUoxetine (PROZAC) 20 mg capsule Take 1 capsule by mouth once daily. - loratadine (ALLERGY RELIEF, LORATADINE,) 10 mg tablet Take 1 tablet by mouth once daily. - aspirin (ASPIR-81 ORAL) Take by mouth. - naproxen (NAPROSYN) 500 mg tablet Take 1 tablet by mouth two times a day as needed for pain (FOR PAIN - TAKE WITH FOOD.). Problem List As Of Date 06/01/2025 Noted Resolved INSOMNIA NOS [G47.00] 07/04/2007 Anxiety state, unspecified [F41.1] 07/04/2007 06/28/2016 Headache(784.0) [R51] 07/04/2007 06/28/2016 Essential hypertension [I10] 07/04/2007 Major depressive disorder, recurrent episode (H*08/19/2007 CHOLELITHIASIS NOS [K80.20] 07/13/2008 Acute gastritis without mention of hemorrhage [*10/04/2010 Dyspepsia and other specified disorders of func*10/04/2010 11/16/2015 ASCUS on Pap smear [JKS9926] 08/23/2011 Blood in stool [K92.1] 08/31/2011 03/24/2014 Anemia, unspecified [D64.9] 08/31/2011 06/28/2016 Iron deficiency anemia [D50.9] 09/28/2011 Neck pain [M54.2] 01/23/2013 06/28/2016 Cervicalgia [M54.2] 11/06/2013 Adjustment disorder with mixed anxiety and depr*12/29/2013 Psychic factors associated with diseases classi*12/29/2013 Sciatica [M54.30] 02/23/2015 Tension-type headache, not intractable [G44.209]01/27/2016 Abnormal mammogram [R92.8] 07/06/2017 Encounter Status:Closed by BEATRICE EWING on 06/01/25 [facility] 05-27-2025 Radiology Diagnostic study note [facility] Imaging Services [address] [place] [address] Chest 1 View (Portable) MR#: [id number] Acct: [id number] Name: SUHAS ABURTO Rep #: [id number] : 1965 F 59 From: Massimo Beth MD PCP: WESTON Pang Status: REG E R Study:Chest 1 View (Portable) Date of Exam: 05/27/25 Exam# [id number] Ordering Dr: Edgar Doss DO PROCEDURE: CHEST 1 VIEW (PORTABLE) 05/27/2025 REASON FOR EXAM: NEAR SYNCOPE TECHNIQUE: Frontal view of the chest. COMPARISON: None available. FINDINGS: Hardware: None. Heart: The heart size is normal. Lungs: The lungs are clear. Bones: The bones are unremarkable. RAD/Chest 1 View (Portable) IMPRESSION: No Acute Findings. [facility] CC: ANALYTICS LEAD-C Nora Robertson; Dr. 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 Bebe Lopez MA [facility] 03-17-2025 Telephone encounter Note ----- Message from Nora Robertson APRN.ACCELERATOR SYSTEMS DIRECTOR sent at 03/16/2025 5:24 PM EDT ----- Vitamin D, TSH, CMP, and B12 were all normal. A1C was 5.8- just in prediabetic range Lipid panel was elevated- LDL was high at 147. Work on low fat diet. [facility] 03-17-2025 Miscellaneous Notes Patient informed of results and recommendations. Bebe Lopez MA ----- Message from Nora Robertson APRN.ACCELERATOR SYSTEMS DIRECTOR sent at 03/16/2025 5:24 PM EDT ----- Vitamin D, TSH, CMP, and B12 were all normal. A1C was 5.8- just in prediabetic range Lipid panel was elevated- LDL was high at 147. Work on low fat diet. documented in this encounter [facility] 03-16-2025 Telephone encounter Note Left message attempting to schedule [facility] 03-16-2025 Miscellaneous Notes Left message attempting to schedule documented in this encounter [facility] 02-24-2025 Note HNO ID: [id number] Author: NORA ROBERTSON APRN.ACCELERATOR SYSTEMS DIRECTOR Service: ? Author Type: Nurse Practitioner Type: Progress Notes Filed: 03/01/2025 14:23 Note Text: CHIEF COMPLAINT: Suhas is a 59-year-old female presenting for medication refills, with additional complaints of foot pain and hand numbness. I reviewed past medical, surgical, social, and family histories today and updated chart. Allergies, chronic medications, and supplements were also reviewed. Recording using CRV software for draft documentation of the visit was discussed with the patient/authorized in home sales representative; all questions welcomed and answered. Patient/authorized in home sales representative agreed to proceed Medication Refills: - Out of refills for vitamin D, atenolol, Prozac, and Claritin. Foot Pain: - Recent foot pain after pulling weeds; described as knots in the feet. - Pain has resolved; x-ray at [facility] showed no fractures. - Difficulty putting pressure on the foot; used Tylenol, [place], and ice packs for relief. - Denies known trauma or injury. Hand Numbness: - Numbness and tingling in the hand since a fall on 09/06 of last year. - Denies x-rays of the wrist. - Symptoms worsen at night and when tying a turban. - Relieves symptoms by shaking the hand. - Denies neck pain or weakness in the hand. - No other neurological symptoms reported. PAST MEDICAL HISTORY Diagnosis Date Dyspepsia and other specified disorders of function of stomach Essential hypertension, benign PAST SURGICAL HISTORY Procedure Laterality Date DELIVERY ONLY , low cervical COLONOSCOPY FLX DX W/COLLJ SPEC WHEN PFRMD 08/31/2011 Colonoscopy/repeat in EGD TRANSORAL BIOPSY SINGLE/MULTIPLE 10/04/10 ESOPHAGOGASTRODUODENOSCOPY TRANSORAL DIAGNOSTIC 08/31/2011 EGD Social History Tobacco Use Smoking status: Never Smokeless tobacco: Never Vaping Use Vaping status: Never Used Substance Use Topics Alcohol use: Never Drug use: Never ALLERGIES Allergen Reactions Atorvastatin Other: See Comments Sulfa (Sulfonamide * itching, rash Family History Problem Relation Age of Onset Cancer Mother throat Heart Brother [place] Diabetes Brother Coronary Artery Disease Brother [place] Current Outpatient Medications Medication Sig Dispense Refill aspirin (ASPIR-81 ORAL) Take by mouth. atenolol (TENORMIN) 25 mg tablet Take 1 tablet by mouth once daily. 90 tablet 1 Cholecalciferol, Vitamin D3, 25 mcg (1,000 unit) cap Take 1 capsule by mouth once daily. 90 capsule 1 FLUoxetine (PROZAC) 20 mg capsule Take 1 capsule by mouth once daily. 90 capsule 1 loratadine (ALLERGY RELIEF, LORATADINE,) 10 mg tablet Take 1 tablet by mouth once daily. 90 tablet 1 naproxen (NAPROSYN) 500 mg tablet Take 1 tablet by mouth two times a day as needed for pain (FOR PAIN - TAKE WITH FOOD.). (Patient not taking: Reported on 11/12/2024) 60 tablet 0 No current facility-administered medications for this visit. Review of Systems Neck: (-) neck pain Musculoskeletal: (+) foot pain (intermittent) Neurological: (+) hand numbness, tingling, (-) weakness Skin: (+) bruising BP 132/80 Pulse 63 Temp (Src) 98 (Oral) Resp 18 Ht 5' 0 (1.52m) Wt 137 lb (62.1kg) SpO2 99% LMP 04/26/2017 BMI 26.76 kg/(m2). Physical Exam Vitals and nursing note reviewed. Constitutional: Appearance: Normal appearance. HENT: Mouth/Throat: Mouth: Mucous membranes are moist. Pharynx: Oropharynx is clear. Eyes: Pupils: Pupils are equal, round, and reactive to light. Cardiovascular: Rate and Rhythm: Normal rate and regular rhythm. Pulses: Normal pulses. Heart sounds: Normal heart sounds. Pulmonary: Effort: Pulmonary effort is normal. Breath sounds: Normal breath sounds. Abdominal: General: Bowel sounds are normal. Palpations: Abdomen is soft. Musculoskeletal: Right hand: No swelling or tenderness. Normal range of motion. Normal strength. There is no disruption of two-point discrimination. Normal capillary refill. Left hand: No swelling or tenderness. Normal range of motion. Normal strength. There is no disruption of two-point discrimination. Normal capillary refill. Cervical back: Normal range of motion and neck supple. Right foot: Normal range of motion and normal capillary refill. No swelling, bony tenderness or crepitus. Skin: General: Skin is warm and dry. Findings: No bruising or erythema. Neurological: Mental Status: She is alert and oriented to person, place, and time. Cranial Nerves: Cranial nerves 2-12 are intact. Sensory: Sensation is intact. Gait: Gait is intact. Psychiatric: Mood and Affect: Mood normal. Behavior: Behavior normal. No visits with results within 1 Day(s) from this visit. Latest known visit with results is: Office Visit on 11/12/2024 Component Date Value Ref Range Status GLUCOSE UA (POCT) 11/12/2024 Negative Negative mg/dL Final BILIRUBIN UA (POCT) 0 (more content not included)... [facility] 02-24-2025 History of Presen t illness Narrative CHIEF COMPLAINT: Suhas is a 59-year-old female presenting for medication refills, with additional complaints of foot pain and hand numbness. I reviewed past medical, surgical, social, and family histories today and updated chart. Allergies, chronic medications, and supplements were also reviewed. Recording using CRV software for draft documentation of the visit was discussed with the patient/authorized in home sales representative; all questions welcomed and answered. Patient/authorized in home sales representative agreed to proceed Medication Refills: - Out of refills for vitamin D, atenolol, Prozac, and Claritin. Foot Pain: - Recent foot pain after pulling weeds; described as knots in the feet. - Pain has resolved; x-ray at [facility] showed no fractures. - Difficulty putting pressure on the foot; used Tylenol, [place], and ice packs for relief. - Denies known trauma or injury. Hand Numbness: - Numbness and tingling in the hand since a fall on 09/06 of last year. - Denies x-rays of the wrist. - Symptoms worsen at night and when tying a turban. - Relieves symptoms by shaking the hand. - Denies neck pain or weakness in the hand. - No other neurological symptoms reported. PAST MEDICAL HISTORY Diagnosis Date Dyspepsia and other specified disorders of function of stomach Essential hypertension, benign PAST SURGICAL HISTORY Procedure Laterality Date DELIVERY ONLY , low cervical COLONOSCOPY FLX DX W/COLLJ SPEC WHEN PFRMD 08/31/2011 Colonoscopy/repeat in EGD TRANSORAL BIOPSY SINGLE/MULTIPLE 10/04/10 ESOPHAGOGASTRODUODENOSCOPY TRANSORAL DIAGNOSTIC 08/31/2011 EGD Social History Tobacco Use Smoking status: Never Smokeless tobacco: Never Vaping Use Vaping status: Never Used Substance Use Topics Alcohol use: Never Drug use: Never ALLERGIES Allergen Reactions Atorvastatin Other: See Comments Sulfa (Sulfonamide * itching, rash Family History Problem Relation Age of Onset Cancer Mother throat Heart Brother [place] Diabetes Brother Coronary Artery Disease Brother [place] Current Outpatient Medications Medication Sig Dispense Refill aspirin (ASPIR-81 ORAL) Take by mouth. atenolol (TENORMIN) 25 mg tablet Take 1 tablet by mouth once daily. 90 tablet 1 Cholecalciferol, Vitamin D3, 25 mcg (1,000 unit) cap Take 1 capsule by mouth once daily. 90 capsule 1 FLUoxetine (PROZAC) 20 mg capsule Take 1 capsule by mouth once daily. 90 capsule 1 loratadine (ALLERGY RELIEF, LORATADINE,) 10 mg tablet Take 1 tablet by mouth once daily. 90 tablet 1 naproxen (NAPROSYN) 500 mg tablet Take 1 tablet by mouth two times a day as needed for pain (FOR PAIN - TAKE WITH FOOD.). (Patient not taking: Reported on 11/12/2024) 60 tablet 0 No current facility-administered medications for this visit. Review of Systems Neck: (-) neck pain Musculoskeletal: (+) foot pain (intermittent) Neurological: (+) hand numbness, tingling, (-) weakness Skin: (+) bruising BP 132/80 Pulse 63 Temp (Src) 98 (Oral) Resp 18 Ht 5' 0 (1.52m) Wt 137 lb (62.1kg) SpO2 99% LMP 04/26/2017 BMI 26.76 kg/(m^2). Physical Exam Vitals and nursing note reviewed. Constitutional: Appearance: Normal appearance. HENT: Mouth/Throat: Mouth: Mucous membranes are moist. Pharynx: Oropharynx is clear. Eyes: Pupils: Pupils are equal, round, and reactive to light. Cardiovascular: Rate and Rhythm: Normal rate and regular rhythm. Pulses: Normal pulses. Heart sounds: Normal heart sounds. Pulmonary: Effort: Pulmonary effort is normal. Breath sounds: Normal breath sounds. Abdominal: General: Bowel sounds are normal. Palpations: Abdomen is soft. Musculoskeletal: Right hand: No swelling or tenderness. Normal range of motion. Normal strength. There is no disruption of two-point discrimination. Normal capillary refill. Left hand: No swelling or tenderness. Normal range of motion. Normal strength. There is no disruption of two-point discrimination. Normal capillary refill. Cervical back: Normal range of motion and neck supple. Right foot: Normal range of motion and normal capillary refill. No swelling, bony tenderness or crepitus. Skin: General: Skin is warm and dry. Findings: No bruising or erythema. Neurological: Mental Status: She is alert and oriented to person, place, and time. Cranial Nerves: Cranial nerves 2-12 are intact. Sensory: Sensation is intact. Gait: Gait is intact. Psychiatric: Mood and Affect: Mood normal. Behavior: Behavior normal. No visits with results within 1 Day(s) from this visit. Latest known visit with results is: Office Visit on 11/12/2024 Component Date Value Ref Range Status GLUCOSE UA (POCT) 11/12/2024 Negative Negative mg/dL Final BILIRUBIN UA (POCT) 11/12/2024 Negative Negative Final KETONE UA (POCT) 11/12/2024 Negative Negative mg/dL Final SPECIFIC GRAVITY UA (POCT) 11/12/2024 1.010 1.005 - 1.030 Final HEMOGLOBIN/BLOOD UA (POCT) 11/12/2024 Large (A) Negative Final PH UA (POCT) 11/12/2024 6.0 4.5 - 8.0 Final PROTEIN UA (POCT) 11/12/2024 100 (A) Negative mg/dL Final UROBILINOGEN UA (POCT) 11/12/2024 0.2 Normal E.U./dL Final NITRITE UA (POCT) 11/12/2024 Positive (A) Negative Final LEUKOCYTES UA (POCT) 11/12/2024 Large (A) Negative Final COLOR UA (POCT) 11/12/2024 Light yellow Final CLARITY UA (POCT) 11/12/2024 Cloudy Final Culture, Urine 11/12/2024 >=100,000 CFU/ml Escherichia coli (A) Final Imaging: - X-ray of foot: No fracture identified ASSESSMENT/PLAN: 1. Essential hypertension (I10) - Clinically stable on atenolol. - Refilled atenolol prescription. 2. Numbness and tingling in left hand (R20.0) - Symptoms began after a fall on 09/06 of last year; no x-rays performed at that time. - Differential diagnosis includes carpal tunnel syndrome and possible cervical radiculopathy. - Ordered EMG to assess for nerve impingement or damage. - Referred to Dr. Talavera, hand specialist, for further evaluation post-EMG. 3. Pain in right foot (M79.671) - Recent onset after rolling ankle while pulling weeds; x-ray at [facility] showed no fractures. - Pain has resolved with use of Tylenol, topical creams, and ice. - Suspected strain; no further intervention needed at this time. 4. Mild episode of recurrent major depressive disorder (F33.0) - Clinically stable on Prozac. - Refilled Prozac prescription. 5. Generalized anxiety disorder (F41.1) - Clinically stable. 6. Iron deficiency anemia, unspecified iron deficiency anemia type (D50.9) - Ordered CBC and iron studies to evaluate for anemia. 7. Vitamin D deficiency (E55.9) - Refilled Vitamin D prescription. - Ordered Vitamin D level. 8. Screening for lipid disorders (Z13.220) - Ordered lipid panel. - Patient instructed to fast for 10 hours prior to lab draw. 9. Screening for thyroid disorder (Z13.29) - Ordered TSH level. 10. Screening for diabetes mellitus (Z13.1) - Ordered HbA1c. 11. Encounter for screening mammogram for malignant neoplasm of breast (Z12.31) - Ordered screening mammogram. - Patient to schedule at [facility]. 12. Screening for colon cancer (Z12.11) - Referred to Dr. Bland for colonoscopy. - Patient to schedule appointment at [facility]. New medication(s) prescribed today: None. Counseling completed in adopting health behaviors such as avoiding excessive alcohol use, avoid tobacco use, improve nutrition, and engage in physical activities. Copy of written care plan, clinical summary, treatment plan, new medications, goals, and self management requirements were given to patient. Nora Robertson APRN.ACCELERATOR SYSTEMS DIRECTOR documented in this encounter [facility] 05-07-2025 Instructions Julissa Soto PA - 02/18/2025 4:23 PM EDT R.I.C.E. The general care of your injury includes the following: Resting, Icing, Compressing and Elevating the injured area. Remember this as RICE. REST: Limit the use of the injured body part. ICE: By applying ice to the affected area, swelling and pain can be reduced. Place some ice cubes in a re-sealable (Ziploc) bag and add some water. Put a thin washcloth between the bag and your skin. Apply the ice bag to the area for at least 20 minutes. Do this at least 4 times per day. Using the ice for longer times and more frequently is OK. NEVER APPLY ICE DIRECTLY TO THE SKIN. COMPRESS: Compression means to apply pressure around the injured area such as with a splint, cast or an maryjo bandage. Compression decreases swelling and improves comfort. Compression should be tight enough to relieve swelling but not so tight as to decrease circulation. Increasing pain, numbness, tingling, or change in skin color, are all signs of decreased circulation. ELEVATE: Elevate the injured part. For example, elevate your foot by placing it on a chair while sitting, or propping it up on pillows when lying down. documented in this encounter [facility] 02-18-2025 History of Presen t illness Narrative Radiology Service Progress Note PATIENT NAME: Suhas Aburto DATE OF SERVICE: February 18, 2025 TIME: 3:55 PM PATIENT IDENTITY VERIFICATION COMPLETED USING TWO (2) IDENTIFIERS: Name and Date of confirmed by patient verbally. FALL SCREENING: Has the patient had 2 falls in the last year or 1 fall with injury or currently using an Ambulatory Assistive Device (Walker, Cane, Wheelchair, Crutches, etc.)? No PATIENT GENDER DATA: Assigned female at . status: : No status: NO. PATIENT RELEVANT IMPLANT DATA REVIEWED: Not Applicable PATIENT PRESENTS WITH AN IMPLANTABLE OR ATTACHED ACCESS CLERK: No RADIOLOGY DEPARTMENT: General X-ray: Exam(s) Completed: Lower Extremity X-Ray(s): Foot, Right PERIPHERAL IV DATA: Not applicable SIGNED BY: RT Samuel(Susu) February 18, 2025 3:55 PM documented in this encounter [facility] 02-18-2025 Note HNO ID: [id number] Author: NGOC ROSE RT(R) Service: Radiology Author Type: Technologist Type: Progress Notes Filed: 02/18/2025 16:04 Note Text: Radiology Service Progress Note PATIENT NAME: Suhas Aburto DATE OF SERVICE: February 18, 2025 TIME: 3:55 PM PATIENT IDENTITY VERIFICATION COMPLETED USING TWO (2) IDENTIFIERS: Name and Date of confirmed by patient verbally. FALL SCREENING: Has the patient had 2 falls in the last year or 1 fall with injury or currently using an Ambulatory Assistive Device (Walker, Cane, Wheelchair, Crutches, etc.)? No PATIENT GENDER DATA: Assigned female at . status: : No status: NO. PATIENT RELEVANT IMPLANT DATA REVIEWED: Not Applicable PATIENT PRESENTS WITH AN IMPLANTABLE OR ATTACHED ACCESS CLERK: No RADIOLOGY DEPARTMENT: General X-ray: Exam(s) Completed: Lower Extremity X-Ray(s): Foot, Right PERIPHERAL IV DATA: Not applicable SIGNED BY: RT Samuel(R) February 18, 2025 3:55 PM [facility] 02-18-2025 Note HNO ID: [id number] Author: JULISSA SOTO PA Service: ? Author Type: Physician French Tutor Type: Progress Notes Filed: 02/18/2025 16:28 Note Text: [facility] Subjective Suhas Aburto is a 59 year old female. Patient presents with: right foot pain: X 1 day-not sure what she did thinks she may have twisted it HPI 59-year-old female presents for right foot pain. Patient states that she was doing gardening yesterday may have twisted her right foot. Does not recall specific injury. She is having pain over the dorsum of the right foot since yesterday. She noticed a small bump on the foot as well, unsure how long this has been here. No numbness or tingling. Still able to walk. Has taken Tylenol Motrin with minimal improvement Review of Systems Constitutional: Negative for chills and fever. Musculoskeletal: Positive for arthralgias (R foot). Neurological: Negative for numbness. Objective BP 128/80 Pulse 64 Temp 36.2 ?C (97.1 ?F) (Tympanic) Resp 18 Wt 62.2 kg (137 lb 2 oz) LMP 04/26/2017 SpO2 96% BMI 26.78 kg/m? Physical Exam Vitals and nursing note reviewed. Constitutional: General: She is not in acute distress. Appearance: Normal appearance. She is not toxic-appearing. HENT: Mouth/Throat: Mouth: Mucous membranes are moist. Musculoskeletal: Right foot: Normal capillary refill. Tenderness and bony tenderness present. No swelling. Normal pulse. Comments: Patient has tenderness over right dorsal foot. Mainly tender over 4th and 5th mid metatarsals. She does have a slightly small raised hard bump/deformity over dorsum of right foot. Feels like a bony prominence. Normal sensation all toes. Nontender toes. Normal ROM of ankle. Nontender ankle. DP and PT pulses 2+ Skin: General: Skin is warm and dry. Neurological: Mental Status: She is alert. {ASSESSMENT/PLAN: 1. Foot pain, right - ICD9: 729.5, ICD10: M79.671 - XR FOOT GENERAL 3V AP/LAT/OBL RIGHT- There is mild narrowing of all interphalangeal joints. Small anterior and large posterior heel spurs. There is a high longitudinal arch of the foot. No fractures or dislocations are seen. - RICE - Follow-up with PCP if no improvement in 1 week Diagnosis and treatment plan were discussed and questions were answered to the patient's satisfaction. Pt acknowledged understanding of concepts and follow up plan. Specific signs and symptoms that would indicate the need for higher level of care were discussed in detail warranting prompt ER evaluation. PRINCE Colón History and Record Review External record(s) reviewed: prior outpatient record. Differential Diagnoses - Right foot injury is more likely for the following reason(s): suggested by HANDP - Fracture or dislocation is less likely for the following reason(s): HANDP not suggestive and no evidence on imaging Disposition The patient was discharged. OTC Medications were advised: Tylenol/Motrin Procedures [facility] 02-18-2025 History of Presen t illness Narrative [facility] Subjective Suhas Aburto is a 59 year old female. Patient presents with: right foot pain: X 1 day-not sure what she did thinks she may have twisted it HPI 59-year-old female presents for right foot pain. Patient states that she was doing gardening yesterday may have twisted her right foot. Does not recall specific injury. She is having pain over the dorsum of the right foot since yesterday. She noticed a small bump on the foot as well, unsure how long this has been here. No numbness or tingling. Still able to walk. Has taken Tylenol Motrin with minimal improvement Review of Systems Constitutional: Negative for chills and fever. Musculoskeletal: Positive for arthralgias (R foot). Neurological: Negative for numbness. Objective BP 128/80 Pulse 64 Temp 36.2 C (97.1 F) (Tympanic) Resp 18 Wt 62.2 kg (137 lb 2 oz) LMP 04/26/2017 SpO2 96% BMI 26.78 kg/m Physical Exam Vitals and nursing note reviewed. Constitutional: General: She is not in acute distress. Appearance: Normal appearance. She is not toxic-appearing. HENT: Mouth/Throat: Mouth: Mucous membranes are moist. Musculoskeletal: Right foot: Normal capillary refill. Tenderness and bony tenderness present. No swelling. Normal pulse. Comments: Patient has tenderness over right dorsal foot. Mainly tender over 4th and 5th mid metatarsals. She does have a slightly small raised hard bump/deformity over dorsum of right foot. Feels like a bony prominence. Normal sensation all toes. Nontender toes. Normal ROM of ankle. Nontender ankle. DP and PT pulses 2+ Skin: General: Skin is warm and dry. Neurological: Mental Status: She is alert. {ASSESSMENT/PLAN: 1. Foot pain, right - ICD9: 729.5, ICD10: M79.671 - XR FOOT GENERAL 3V AP/LAT/OBL RIGHT- There is mild narrowing of all interphalangeal joints. Small anterior and large posterior heel spurs. There is a high longitudinal arch of the foot. No fractures or dislocations are seen. - RICE - Follow-up with PCP if no improvement in 1 week Diagnosis and treatment plan were discussed and questions were answered to the patient's satisfaction. Pt acknowledged understanding of concepts and follow up plan. Specific signs and symptoms that would indicate the need for higher level of care were discussed in detail warranting prompt ER evaluation. PRINCE Colón History and Record Review External record(s) reviewed: prior outpatient record. Differential Diagnoses - Right foot injury is more likely for the following reason(s): suggested by H&P - Fracture or dislocation is less likely for the following reason(s): H&P not suggestive and no evidence on imaging Disposition The patient was discharged. OTC Medications were advised: Tylenol/Motrin Procedures documented in this encounter [facility] 11-19-2024 Telephone encounter Note pharmacy electronically requesting refills as follows: Last seen 09/18/24 . Last refill 07/21/24 . Requested Prescriptions Pending Prescriptions Disp Refills ALLERGY RELIEF, LORATADINE, 10 mg tablet [Pharmacy Med Name: EQ All Day Allergy Relief 10 MG Oral Tablet] 30 tablet 0 Sig: Take 1 tablet by mouth once daily Please review and advise. Bebe Lopez MA [facility] 11-19-2024 Miscellaneous Notes pharmacy electronically requesting refills as follows: Last seen 09/18/24 . Last refill 07/21/24 . Requested Prescriptions Pending Prescriptions Disp Refills ALLERGY RELIEF, LORATADINE, 10 mg tablet [Pharmacy Med Name: EQ All Day Allergy Relief 10 MG Oral Tablet] 30 tablet 0 Sig: Take 1 tablet by mouth once daily Please review and advise. Bebe Lopez MA documented in this encounter [facility] 11-14-2024 Telephone encounter Note Pt returned call and given provider's message below with verbalized understanding. Patient agreeable. [facility] 11-14-2024 Miscellaneous Notes Pt returned call and given provider's message below with verbalized understanding. Patient agreeable. TC no answer. Left VM to return call. NAVID Agustin ----- Message from Monique Toro APRN.ACCELERATOR SYSTEMS DIRECTOR sent at 11/14/2024 2:45 PM EST ----- Please inform patient that the urine culture did show infection. The antibiotic that was prescribed is appropriate. They should continue to take the antibiotic as directed and follow-up with their PCP. documented in this encounter [facility] 11-14-2024 Telephone encounter Note TC no answer. Left VM to return call. NAVID Agustin [facility] 11-14-2024 Telephone encounter Note ----- Message from Monique Toro APRN.ACCELERATOR SYSTEMS DIRECTOR sent at 11/14/2024 2:45 PM EST ----- Please inform patient that the urine culture did show infection. The antibiotic that was prescribed is appropriate. They should continue to take the antibiotic as directed and follow-up with their PCP. [facility] 11-12-2024 Note HNO ID: [id number] Author: YANDEL DE LA ROSA PA-C Service: ? Author Type: Physician French Tutor Type: Progress Notes Filed: 11/12/2024 10:17 Note Text: This note was created using [employer]. Subjective Suhas Aburto is a 59 year old female. Patient is a 59-year-old female who complains of dysuria, chills and bodyaches that she has been experiencing for the past 1 day. Patient denies fever, hematuria, flank pain, nausea or other symptoms. Patient states that she has no history of urinary tract infection and has not previously experienced similar symptoms. Review of Systems Constitutional: Positive for chills. Genitourinary: Positive for dysuria. Musculoskeletal: Positive for myalgias. All other systems reviewed and are negative. Objective BP 122/80 Pulse 85 Temp 37.5 ?C (99.5 ?F) Resp 20 Wt 62.6 kg (138 lb 0.1 oz) LMP 04/26/2017 SpO2 98% BMI 26.95 kg/m? Physical Exam Vitals and nursing note reviewed. Constitutional: Appearance: Normal appearance. She is normal weight. HENT: Head: Normocephalic and atraumatic. Right Ear: External ear normal. Left Ear: External ear normal. Nose: Nose normal. Mouth/Throat: Mouth: Mucous membranes are moist. Pharynx: Oropharynx is clear. Eyes: Extraocular Movements: Extraocular movements intact. Conjunctiva/sclera: Conjunctivae normal. Pupils: Pupils are equal, round, and reactive to light. Cardiovascular: Rate and Rhythm: Normal rate. Pulses: Normal pulses. Heart sounds: Normal heart sounds. Pulmonary: Effort: Pulmonary effort is normal. Breath sounds: Normal breath sounds. Abdominal: General: Abdomen is flat. Palpations: Abdomen is soft. Musculoskeletal: Cervical back: Normal range of motion and neck supple. Skin: General: Skin is warm and dry. Capillary Refill: Capillary refill takes less than 2 seconds. Neurological: General: No focal deficit present. Mental Status: She is alert and oriented to person, place, and time. Psychiatric: Mood and Affect: Mood normal. Behavior: Behavior normal. Thought Content: Thought content normal. Judgment: Judgment normal. Assessment and Plan Physical exam findings as noted above. Urinalysis shows large leukocyte esterase, nitrite and large blood. Urine culture was ordered. Patient was provided with a prescription for Keflex 500 mg and advised that results of the urine culture will be available in 2 days. Patient was informed that she will be contacted if there is a need to change her medication based on the sensitivity report. Patient verbalizes clear understanding of the above instructions. CLINICAL IMPRESSION: Acute UTI ASSESSMENT/PLAN: 1. Painful urination - ICD9: 788.1, ICD10: R30.9 (primary diagnosis) - UA DIP, URINE (POC) - BACTERIAL CULTURE, URINE 2. Acute UTI - ICD9: 599.0, ICD10: N39.0 - BACTERIAL CULTURE, URINE - CEPHALEXIN 500 MG CAPSULE Yandel De La Rosa PA-C [facility] 11-12-2024 History of Presen t illness Narrative This note was created using [employer]. Subjective Suhas Aburto is a 59 year old female. Patient is a 59-year-old female who complains of dysuria, chills and bodyaches that she has been experiencing for the past 1 day. Patient denies fever, hematuria, flank pain, nausea or other symptoms. Patient states that she has no history of urinary tract infection and has not previously experienced similar symptoms. Review of Systems Constitutional: Positive for chills. Genitourinary: Positive for dysuria. Musculoskeletal: Positive for myalgias. All other systems reviewed and are negative. Objective BP 122/80 Pulse 85 Temp 37.5 C (99.5 F) Resp 20 Wt 62.6 kg (138 lb 0.1 oz) LMP 04/26/2017 SpO2 98% BMI 26.95 kg/m Physical Exam Vitals and nursing note reviewed. Constitutional: Appearance: Normal appearance. She is normal weight. HENT: Head: Normocephalic and atraumatic. Right Ear: External ear normal. Left Ear: External ear normal. Nose: Nose normal. Mouth/Throat: Mouth: Mucous membranes are moist. Pharynx: Oropharynx is clear. Eyes: Extraocular Movements: Extraocular movements intact. Conjunctiva/sclera: Conjunctivae normal. Pupils: Pupils are equal, round, and reactive to light. Cardiovascular: Rate and Rhythm: Normal rate. Pulses: Normal pulses. Heart sounds: Normal heart sounds. Pulmonary: Effort: Pulmonary effort is normal. Breath sounds: Normal breath sounds. Abdominal: General: Abdomen is flat. Palpations: Abdomen is soft. Musculoskeletal: Cervical back: Normal range of motion and neck supple. Skin: General: Skin is warm and dry. Capillary Refill: Capillary refill takes less than 2 seconds. Neurological: General: No focal deficit present. Mental Status: She is alert and oriented to person, place, and time. Psychiatric: Mood and Affect: Mood normal. Behavior: Behavior normal. Thought Content: Thought content normal. Judgment: Judgment normal. Assessment and Plan Physical exam findings as noted above. Urinalysis shows large leukocyte esterase, nitrite and large blood. Urine culture was ordered. Patient was provided with a prescription for Keflex 500 mg and advised that results of the urine culture will be available in 2 days. Patient was informed that she will be contacted if there is a need to change her medication based on the sensitivity report. Patient verbalizes clear understanding of the above instructions. CLINICAL IMPRESSION: Acute UTI ASSESSMENT/PLAN: 1. Painful urination - ICD9: 788.1, ICD10: R30.9 (primary diagnosis) - UA DIP, URINE (POC) - BACTERIAL CULTURE, URINE 2. Acute UTI - ICD9: 599.0, ICD10: N39.0 - BACTERIAL CULTURE, URINE - CEPHALEXIN 500 MG CAPSULE Yandel De La Rosa PA-C documented in this encounter [facility] 09-24-2024 Telephone encounter Note Max on pt. Vm with all information. Chayito Norris MA [facility] 09-24-2024 Miscellaneous Notes Max on pt. Vm with all information. Chayito Norris MA ----- Message from Nora Robertson APRN.ACCELERATOR SYSTEMS DIRECTOR sent at 09/24/2024 1:38 PM EST ----- Pap and HPV were both negative. She does not need to repeat it in 5 years. documented in this encounter [facility] 09-24-2024 Telephone encounter Note ----- Message from Nora Robertson APRN.ACCELERATOR SYSTEMS DIRECTOR sent at 09/24/2024 1:38 PM EST ----- Pap and HPV were both negative. She does not need to repeat it in 5 years. [facility] 09-18-2024 Instructions Nora Robertson APRN.CNP - 09/18/2024 4:[address] Elizabeth Bland [facility] [address] [place], [place] [id number] Appointment:[phone] documented in this encounter [facility] 09-18-2024 Note HNO ID: [id number] Author: NORA ROBERTSON APRN.CNP Service: ? 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 Aburto is a 59 year old who presents for an annual gynecologic exam without complaints. I reviewed past medical, surgical, social, and family histories today and updated chart. Allergies, chronic medications, and supplements were also reviewed. Postmenopausal: Yes since age 55 HRT use: No. HPV vaccine: N/A Last Pap: normal HPV: N/A History of abnormal pap: No Last mammogram: 2018abnormal, Prior history of abnormal mammogram Sexually active: No Hot flashes: No Night sweats: No Will be seeing a appointment scheduler in [place] after recent ER visit to [place] after she fell and hit her head which caused altered mental status. She also had elevated BP and troponins. ER report scanned into EMR. Review of Systems Constitutional: Negative for appetite change, chills, diaphoresis, fatigue, fever and unexpected weight change. HENT: Negative. Respiratory: Negative. Cardiovascular: Negative. Gastrointestinal: Negative. Genitourinary: Negative. Musculoskeletal: Positive for arthralgias and myalgias. Negative for gait problem, joint swelling, neck pain and neck stiffness. Skin: Negative. Neurological: Negative. Psychiatric/Behavioral: Positive for dysphoric mood. Negative for sleep disturbance. The patient is nervous/anxious. Obstetric History T0 L1 SAB0 IAB0 Ectopic0 Multiple0 Live Births0 PAST MEDICAL HISTORY Diagnosis Date Dyspepsia and other specified disorders of function of stomach Essential hypertension, benign PAST SURGICAL HISTORY Procedure Laterality Date DELIVERY ONLY , low cervical COLONOSCOPY FLX DX W/COLLJ SPEC WHEN PFRMD 08/31/2011 Colonoscopy/repeat in EGD TRANSORAL BIOPSY SINGLE/MULTIPLE 10/04/10 ESOPHAGOGASTRODUODENOSCOPY TRANSORAL DIAGNOSTIC 08/31/2011 EGD FAMILY HISTORY Problem Relation Age of Onset Cancer Mother throat Heart Brother [place] Diabetes Brother Coronary Artery Disease Brother [place] Social History Tobacco Use Smoking status: Never Smokeless tobacco: Never Substance Use Topics Alcohol use: No Drug use: No Current Meds loratadine (ALLERGY RELIEF, LORATADINE,) 10 mg tablet Take 1 tablet by mouth once daily. atenolol (TENORMIN) 25 mg tablet Take 1 tablet by mouth once daily. Cholecalciferol, Vitamin D3, 25 mcg (1,000 unit) cap Take 1 capsule by mouth once daily. FLUoxetine (PROZAC) 20 mg capsule Take 1 capsule by mouth once daily. Take 1 capsule by mouth once daily naproxen (NAPROSYN) 500 mg tablet Take 1 tablet by mouth two times a day as needed for pain (FOR PAIN - TAKE WITH FOOD.). I have confirmed and edited as necessary the chief complaint, medications, past medical, family and social histories. Objective BP 116/68 Pulse 70 Temp 36.7 ?C (98.1 ?F) Resp 16 Ht 152.4 cm (5') Wt 62.8 kg (138 lb 8 oz) LMP 04/26/2017 SpO2 99% BMI 27.05 kg/m? Physical Exam Vitals and nursing note reviewed. Constitutional: Appearance: Normal appearance. Cardiovascular: Rate and Rhythm: Normal rate and regular rhythm. Heart sounds: Normal heart sounds. Pulmonary: Effort: Pulmonary effort is normal. Breath sounds: Normal breath sounds. Chest: Breasts: Kenroy Score is 5. Breasts are symmetrical. Right: Normal. Left: Normal. Abdominal: General: Bowel sounds are normal. There is no distension. Palpations: Abdomen is soft. Tenderness: There is no abdominal tenderness. Genitourinary: General: Normal vulva. Exam position: Supine. Pubic Area: No rash. Labia: Right: No rash, tenderness or lesion. Left: No rash, tenderness or lesion. Urethra: No prolapse or urethral swelling. Vagina: Vaginal discharge present. No erythema, tenderness or bleeding. Comments: Soil Science Technical Officer offered. Switched to small speculum due to discomfort with initial speculum. She reports it is still uncomfortable (states it is because she is not sexually active). I attempted to visual the cervix but it was difficult due to limited exam. Cytology was attempted. Bimanual exam not performed due to pain with exam. Musculoskeletal: Thoracic back: Tenderness present. No swelling. Normal range of motion. Lumbar back: Normal. Back: Skin: General: Skin is warm and dry. Neurological: Mental Status: She is alert and oriented to person, place, and time. Data Reviewed: Outside chart from [place] reviewed. ASSESSMENT/PLAN: 1. Well woman exam with routine gynecological exam - ICD9: V72.31, ICD10: Z01.419 (primary diagnosis (more content not included)... [facility] 09-18-2024 History of Presen t illness Narrative Images from the original 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 Aburto is a 59 year old who presents for an annual gynecologic exam without complaints. I reviewed past medical, surgical, social, and family histories today and updated chart. Allergies, chronic medications, and supplements were also reviewed. Postmenopausal: Yes since age 55 HRT use: No. HPV vaccine: N/A Last Pap: normal HPV: N/A History of abnormal pap: No Last mammogram: 2018abnormal, Prior history of abnormal mammogram Sexually active: No Hot flashes: No Night sweats: No Will be seeing a appointment scheduler in [place] after recent ER visit to [place] after she fell and hit her head which caused altered mental status. She also had elevated BP and troponins. ER report scanned into EMR. Review of Systems Constitutional: Negative for appetite change, chills, diaphoresis, fatigue, fever and unexpected weight change. HENT: Negative. Respiratory: Negative. Cardiovascular: Negative. Gastrointestinal: Negative. Genitourinary: Negative. Musculoskeletal: Positive for arthralgias and myalgias. Negative for gait problem, joint swelling, neck pain and neck stiffness. Skin: Negative. Neurological: Negative. Psychiatric/Behavioral: Positive for dysphoric mood. Negative for sleep disturbance. The patient is nervous/anxious. Obstetric History T0 L1 SAB0 IAB0 Ectopic0 Multiple0 Live Births0 PAST MEDICAL HISTORY Diagnosis Date Dyspepsia and other specified disorders of function of stomach Essential hypertension, benign PAST SURGICAL HISTORY Procedure Laterality Date DELIVERY ONLY , low cervical COLONOSCOPY FLX DX W/COLLJ SPEC WHEN PFRMD 08/31/2011 Colonoscopy/repeat in EGD TRANSORAL BIOPSY SINGLE/MULTIPLE 10/04/10 ESOPHAGOGASTRODUODENOSCOPY TRANSORAL DIAGNOSTIC 08/31/2011 EGD FAMILY HISTORY Problem Relation Age of Onset Cancer Mother throat Heart Brother [place] Diabetes Brother Coronary Artery Disease Brother [place] Social History Tobacco Use Smoking status: Never Smokeless tobacco: Never Substance Use Topics Alcohol use: No Drug use: No Current Meds loratadine (ALLERGY RELIEF, LORATADINE,) 10 mg tablet Take 1 tablet by mouth once daily. atenolol (TENORMIN) 25 mg tablet Take 1 tablet by mouth once daily. Cholecalciferol, Vitamin D3, 25 mcg (1,000 unit) cap Take 1 capsule by mouth once daily. FLUoxetine (PROZAC) 20 mg capsule Take 1 capsule by mouth once daily. Take 1 capsule by mouth once daily naproxen (NAPROSYN) 500 mg tablet Take 1 tablet by mouth two times a day as needed for pain (FOR PAIN - TAKE WITH FOOD.). I have confirmed and edited as necessary the chief complaint, medications, past medical, family and social histories. Objective BP 116/68 Pulse 70 Temp 36.7 C (98.1 F) Resp 16 Ht 152.4 cm (5') Wt 62.8 kg (138 lb 8 oz) LMP 04/26/2017 SpO2 99% BMI 27.05 kg/m Physical Exam Vitals and nursing note reviewed. Constitutional: Appearance: Normal appearance. Cardiovascular: Rate and Rhythm: Normal rate and regular rhythm. Heart sounds: Normal heart sounds. Pulmonary: Effort: Pulmonary effort is normal. Breath sounds: Normal breath sounds. Chest: Breasts: Kenroy Score is 5. Breasts are symmetrical. Right: Normal. Left: Normal. Abdominal: General: Bowel sounds are normal. There is no distension. Palpations: Abdomen is soft. Tenderness: There is no abdominal tenderness. Genitourinary: General: Normal vulva. Exam position: Supine. Pubic Area: No rash. Labia: Right: No rash, tenderness or lesion. Left: No rash, tenderness or lesion. Urethra: No prolapse or urethral swelling. Vagina: Vaginal discharge present. No erythema, tenderness or bleeding. Comments: Soil Science Technical Officer offered. Switched to small speculum due to discomfort with initial speculum. She reports it is still uncomfortable (states it is because she is not sexually active). I attempted to visual the cervix but it was difficult due to limited exam. Cytology was attempted. Bimanual exam not performed due to pain with exam. Musculoskeletal: Thoracic back: Tenderness present. No swelling. Normal range of motion. Lumbar back: Normal. Back: Skin: General: Skin is warm and dry. Neurological: Mental Status: She is alert and oriented to person, place, and time. Data Reviewed: Outside chart from [place] reviewed. ASSESSMENT/PLAN: 1. Well woman exam with routine gynecological exam - ICD9: V72.31, ICD10: Z01.419 (primary diagnosis) Annual Gynecologic Examination Well Woman Exam Annual Breast Exam - Completed pelvic and breast exam - Completed pap exam - Encouraged monthly BSE - Increase calcium intake with supplements or by diet (goal of 2524-4397 mg/day - Follow up for annual exam in one year. 2. Upper back pain - ICD9: 724.5, ICD10: M54.9 - Warm moist heat for 20 min three times a day - NSAIDS- see orders - NAPROXEN 500 MG TABLET 3. Screening for cervical cancer - ICD9: V76.2, ICD10: Z12.4 - Completed pap exam - PAP TEST - HIGH RISK HUMAN PAPILLOMA VIRUS (HPV), PCR FOR DETECTION AND GENOTYPING 4. Screening for colon cancer - ICD9: V76.51, ICD10: Z12.11 - CONSULT TO GENERAL SURGERY Discussed the above with the patient using shared decision making. The patient is in agreement with the diagnostic and treatment plans. Nora Robertson APRN.CNP documented in this encounter [facility] 09-06-2024 Note [facility] Medical Records Department [address] [place] [address] Discharge Summary 09/06/24 1602 MR#: [id number] Acct: [id number] Name: SUHAS ABURTO Rep #: [id number] : 1965 59 From: Samaria Alvarado MD PCP: WESTON Pang Status:ADM IN Location: [facility] [id number] Providers Date of Admission: 09/05/24 Date of Discharge: 09/06/24 Primary Care Physician: WESTON Pang Consultations 09/05/24 19:28 Consult: Cardiology Routine Consulting Provider: Max Foley Reason for Consult: Chest Pain EMERGENT Consult: No MD Notified: Yes Date Notified: 09/05/24 Time Notified: 18:35 Method of Notification: ED Physician Initiated Reason For Visit: TROPONIN ELEVATION Diagnosis Discharge Diagnosis (1) Hypertension: Status: Chronic Code(s): I10 - Essential (primary) hypertension Qualifiers: Hypertension type: unspecified Qualified Code(s): I10 - Essential (primary) hypertension (2) Elevated troponin I level: Status: Acute Code(s): R79.89 - Other specified abnormal findings of blood chemistry Plan # Mechanical fall # Brief altered mental status resolved # Elevated troponin resolved #Depression/anxiety Medications at Discharge Home Medications ascorbic acid (vitamin C) 500 mg tablet 500 mg PO DAILY 12/29/19 acetaminophen 500 mg tablet 500 - 1,000 mg (1 - 2 x 500 mg) PO TID-QID PRN fever or pain #60 tabs 07/11/22 atenolol 25 mg tablet 25 mg PO QDAY #30 tabs 01/08/24 cholecalciferol (vitamin D3) 25 mcg (1,000 unit) capsule 1,000 unit PO QDAY #30 caps 01/08/24 loratadine 10 mg tablet 10 mg PO QDAY PRN allergy symptoms #30 tabs 01/08/24 ibuprofen 600 mg tablet 600 mg PO TID-QID PRN pain #30 tabs 06/17/24 fluoxetine 20 mg capsule 20 mg PO DAILY 09/05/24 Hospital Course Summary of Care Provided Minutes Spent on Discharge: 32 Hospital Course: Per HPI: SUHAS ABURTO, is a 59 F who presented to the emergency department at [facility] on 09/05/2020 for due to an unresponsive episode. Patient reported that she was walking out in front of a store and was with the salesman and tripped on unlevel ground. She hit her knees and her shoulder and she stated that a store mining captain told her to lie on the ground and she called the ambulance. It does not sound as if she hit her head. On presentation she was complaining of some right shoulder discomfort, right knee pain and some left hip pain. She did not indicate she hit her head. However it was reported that she was very out of it and appeared awake but not interactive. Blood sugar per EMS was 99 but her initial blood pressure was 200/100 and her pupils were sluggish at that time. By the time of arrival she was answering questions and had no complaints. She denied any occurrence of chest pain or shortness of breath. She has no cardiac history and states she has no family cardiac history. She is a lifelong non-smoker. She does have a robust family history of coronary disease in both her brothers. Vital signs on presentation the emergency department showed temperature 97.7, heart rate 74, respiratory rate 16, blood pressure was 123/102 and pulse ox was 99% on room air. CBC showed a mild leukocytosis with white count of 11.2 but was otherwise unremarkable. Coags are normal. Chemistry panel was unremarkable. Lactic acid was 1.4. Liver function was normal. Initial troponin was 9 but repeat troponin was 94. EKG showed sinus rhythm with no ST-T wave changes concerning for acute ischemia and normal intervals. CT of the brain was normal. Chest x-ray was negative for any acute findings. 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 Given her unresponsive episode and troponin bump it was felt prudent to admit her to the hospital. INTERVAL HISTORY: Patient's troponin returned to normal, she had no further symptoms or complaints and echocardiogram with no significant abnormalities. Discussed with cardiology, it was felt reasonable for patient to be discharged and follow-up outpatient in the cardiology office on her present home medications and at that time she can be set up with an event monitor. Patient discharged home in stable condition Physical Exam Narrative General: Alert, oriented, no apparent distress HEENT: Atraumatic, normocephalic Eyes: Anicteric, normal conjunctiva, extraocular movements grossly intact Neck: Supple Respiratory: Clear to auscultation bilaterally, normal respiratory effort Cardiovascular: Regular rate and rhythm GI: Soft, nontender, nondistended Extremities: No edema Musculoskeletal: Moving all extremities Neuro: No overt focal neurological deficits Skin: No rashes appreciated Psych: Cooperative Weight / BMI Weight Weight: 60.5 kg Body Mass Index (BMI) 28.8 ABG / Lab / Microbiology Data (more content not included)... [facility] 07-21-2024 Nurse Note Pt. Given regular dose flu with no complaints. Vis given. Chayito Norris MA [facility] 07-21-2024 Nurse Note Pt. Given regular dose flu with no complaints. Vis given. Chayito Norris MA documented in this encounter [facility] 07-21-2024 Instructions Nora Robertson APRN.CNP - 07/21/2024 9:26 AM EDT Emilie Negro PA-C Orthopaedic Surgery [facility] [address] [place] [address] Appointment:[phone] documented in this encounter [facility] 07-21-2024 Note HNO ID: [id number] Author: NOAR ROBERTSON APRN.ACCELERATOR SYSTEMS DIRECTOR Service: ? Author Type: Nurse Practitioner Type: Progress Notes Filed: 07/21/2024 10:35 Note Text: CHIEF COMPLAINT: Suhas Aburto is a 59 year old female who [...] of Onset Cancer Mother throat Heart Brother [place] Diabetes Brother Coronary Artery Disease Brother [place] Current Outpatient Medications Medication Sig Dispense Refill [...] fatigue and unexpected (more content not included)... [facility] 07-21-2024 History of Presen t illness Narrative CHIEF COMPLAINT: Suhas Aburto is a 59 year old female who [...] of Onset Cancer Mother throat Heart Brother [place] Diabetes Brother Coronary Artery Disease Brother [place] Current Outpatient Medications Medication Sig Dispense Refill [...] Cognition and Memory: Cognition normal. Latest Ref Rng 02/22/2024 WBC 3.70 - 11.00 k/uL 9.07 [...] Abs Lymph 1.00 - 4.00 k/uL 3.96 Milam% % 7.5 Abs Milam <0.87 k/uL 0.68 Eosin% % 4.7 Abs [...] management requirements were given to patient. Nora Robertson APRN.ACCELERATOR SYSTEMS DIRECTOR documented in this encounter [facility] 07-09-2024 Telephone encounter Note Patient requesting refills [...] once daily Please review and advise. Melissa Schmidt MA [facility] 07-09-2024 Miscellaneous Notes Patient requesting refills as [...] once daily Please review and advise. Melissa Schmidt MA documented in this encounter [facility] 06-24-2024 Note HNO ID: [id number] Author: CHAYITO NORRIS MA Service: ? Author Type: Finish Inspector Type: Progress Notes Filed: 06/24/2024 08:32 Note Text: ED Follow Up: Patient discharged from [facility] ED on 06/17/2024. 1. How are you [...] you able to contact the office or technical services consultant provider prior to your ED visit? Not applicable 5. Is there anything else I can do for you today? Not applicable LM ON PT. VM TO CONTACT OFFICE IF SHE NEEDS ANYTHING OR WOULD LIKE A ER FOLLOW UP. Chayito Norris MA [facility] 06-24-2024 History of Presen t illness Narrative ED Follow Up: Patient discharged from [facility] ED on 06/17/2024. 1. How are you [...] you able to contact the office or technical services consultant provider prior to your ED visit? Not applicable 5. Is there anything else I can do for you today? Not applicable LM ON PT. VM TO CONTACT OFFICE IF SHE NEEDS ANYTHING OR WOULD LIKE A ER FOLLOW UP. Chayito Norris MA documented in this encounter [facility] 06-24-2024 Note Patient Outreach (AMANDA ABARCA) SUHAS ABURTO ([id number]) 1965 F Date Time Provider Department 06/24/24 CHAYITO NORRIS During your visit today, we recorded the following information about you: Chayito Norris MA 06/24/2024 8:32 AM Signed ED Follow Up: Patient discharged from [facility] ED on 06/17/2024. 1. How are you [...] you able to contact the office or technical services consultant provider prior to your ED visit? Not [...] Visit: ED OUTREACH [Other] Cmt: ED OUTREACH [facility] 06/17/2024 Prescriptions as of 06/24/2024 - atenolol [...] of func*10/04/2010 11/16/2015 ASCUS on Pap smear [[id number]] 08/23/2011 Blood in stool [K92.1] 08/31/2011 03/24/2014 Anemia, unspecified [D64.9] 08/31/2011 06/28/2016 Iron deficiency anemia [D50.9] 09/28/2011 Neck pain [M54.2] 01/23/2013 06/28/2016 Cervicalgia [M54.2] 11/06/2013 Adjustment disorder with mixed anxiety and depr*12/29/2013 Psychic factors associated with diseases classi*12/29/2013 Sciatica [M54.30] 02/23/2015 Tension-type headache, not intractable [G44.209]01/27/2016 Abnormal mammogram [R92.8] 07/06/2017 Encounter Status:Closed by CHAYITO NORRIS on 06/24/24 [facility] 05-30-2024 Telephone encounter Note ----- Message from Melissa Schmidt MA sent at 02/28/2024 3:53 PM EDT ----- CBC- recheck in 3 months. [facility] 05-30-2024 Miscellaneous Notes ----- Message from Melissa Schmidt MA sent at 02/28/2024 3:53 PM EDT ----- CBC- recheck in 3 months. documented in this encounter [facility] 04-01-2024 History of Presen t illness Narrative ED Follow Up: Patient discharged from [facility] ED on 03/31/2024. 1. How are you [...] you able to contact the office or technical services consultant provider prior to your ED visit? Left message for pt to call office back. 5. Is there anything else I can do for you today? Left message for pt to call office back. documented in this encounter [facility] 03-30-2024 Telephone encounter Note Spoke with patient, discussed OTC medications for WISE and bodyaches such as alternating Tylenol and ibuprofen. Suggested f/u appt with pcp to explore further testing for severe bodyaches and headaches, but to proceed to ER sooner if patient feels as though pain is too bad. Rut Watkins MA [facility] 03-30-2024 Miscellaneous Notes Spoke with patient, discussed [...] COVID flu RSV documented in this encounter [facility] 03-30-2024 Telephone encounter Note Patient's called back [...] if there is no answer Yefri Vargas [facility] 03-30-2024 Telephone encounter Note Patient friend calling regarding results. Conferenced to Yefri in [facility] at phone number ([phone]) for assistance. Lata Friend LPN [facility] 03-30-2024 Miscellaneous Notes Patient friend calling regarding results. Conferenced to Yefri in [place] [employer] [facility] at phone number ([phone]) for assistance. Lata Friend LPN documented in this encounter [facility] 03-30-2024 Telephone encounter Note Left VM instructing patient to return call to receive results. Rut Watkins MA [facility] 03-30-2024 Telephone encounter Note Negative for COVID flu RSV [facility] 03-29-2024 Note HNO ID: [id number] Author: JULISSA SOTO PA Service: ? Author Type: Physician French Tutor Type: Progress Notes Filed: 03/29/2024 12:35 Note Text: This note was created using Bringgriter. Subjective Suhas Aburto is a 58 year old female. HPI [...] of Onset Cancer Mother throat Heart Brother [place] Diabetes Brother Coronary Artery Disease Brother [place] Social History Tobacco Use Smoking status: Never [...] prompt ER evaluation. PRINCE Colón [facility] 03-29-2024 History of Presen t illness Narrative This note was created using Scaled Agileter. Subjective Suhas Aburto is a 58 year old female. HPI [...] of Onset Cancer Mother throat Heart Brother [place] Diabetes Brother Coronary Artery Disease Brother [place] Social History Tobacco Use Smoking status: Never [...] evaluation. PRINCE Colón documented in this encounter [facility] 03-29-2024 Instructions Julissa Soto PA - 03/29/2024 12:31 PM EDT Rest, [...] with any congestion. documented in this encounter [facility] 02-28-2024 Telephone encounter Note Patient is informed reminder placed Melissa Schmidt MA [facility] 02-28-2024 Miscellaneous Notes Patient is informed reminder placed Melissa Schmidt MA Please call the patient with results: [...] minutes a week. documented in this encounter [facility] 02-27-2024 Telephone encounter Note Please call the [...] Increase exercise at 150 minutes a week. [facility] 02-21-2024 Instructions Nora Robertson APRN.CNP - 02/21/2024 10:59 AM EDT [place] [facility]- Call [phone] Laboratory (Appointment Recommended) Sunday: Closed Sunday: 7 a.m. - 5 p.m. Sunday: 7 a.m. - 5 p.m. Sunday: 7 a.m. - 5 p.m. : 7 a.m. - 5 p.m. Sunday: 7 a.m. - 5 p.m. Sunday: 7:30 a.m. - Noon [facility] Outpatient Lab Hours For your convenience, the outpatient laboratory is open during the following hours: Sunday- Sunday 7 a.m. - 4:30 p.m. Sunday: 8 a.m. - 11:45 a.m. The outpatient lab is closed on Sundays and . [facility] Radiology testing- call [facility] at [phone] Fast for 10 hours. Water is ok. documented in this encounter [facility] 02-21-2024 History of Presen t illness Narrative Images from the original note were not included. [facility] Nora Robertson APRN-ACCELERATOR SYSTEMS DIRECTOR [address] [place] [address] Dept Dept. Visit Date: February 21, 2024 Ms.Jaswinder Aburto Date of : 1965 MRN/E #: [id number] Chief Complaint: Patient presents with: Establish Care History of Present Illness Suhas Aburto is a 58 year old female presents [...] she is due for recheck. Mammogram in 2017- needed biopsy of right breast but it [...] Brother Age of Onset: (Not Specified) Comment: [place] Problem: Diabetes Relation: Brother Age of Onset: (Not Specified) Problem: Coronary Artery Disease Relation: Brother Age of Onset: (Not Specified) Comment: [place] ALLERGIES Allergen Reactions Sulfa (Sulfonamide * itching, [...] follow-up, needs code for MyChart please. Nora Robertson APRN.CNP, signed on February 21, 2024 10:40 AM documented in this encounter [facility] 02-18-2024 Instructions Holli Alfaro MD - 02/18/2024 3:21 PM EDT Dry Eye management: Preservative free lubricant eye drop 4 to 8 times daily Both eyes ( refresh, systane, genteal and theratears are good brands) Drink 6 to 8 glasses of clear liquids daily Cool mist humidifier in bedroom documented in this encounter [facility] 02-18-2024 History of Presen t illness Narrative Reviewed gia note 02/05/24 Reviewed jose elias note 08/27/23 Reviewed cedric sanders 06/26/23 (H53.8) Blurred vision, bilateral (primary encounter [...] others. I have seen and examined Suhas Aburto. I have discussed the case and the management of this patient's care with the Resident/Fellow, if applicable. I also have reviewed and agree with the assessment and plan as stated above and agree with all of its relevant components. Holli Diana MD documented in this encounter [facility] 02-05-2024 History of Presen t illness Narrative This note was created using Scaled Agileter. Subjective Suhas Aburto is a 58 year old female. HPI 58-year-old female presents for congestion, cough, sneezing, fatigue, headache for about 6 days. Patient states that last week she started getting sick with some sinus pressure, nasal congestion and sneezing. She states that she has yellow nasal drainage. She reports sinus headache and sinus pressure above her eyebrows. She states that her eyes feel heavy. She states that they just feel tired. [...] mi Diabetes Brother Coronary Artery Disease Brother [place] Social History Tobacco Use Smoking status: Never [...] evaluation. PRINCE Colón documented in this encounter [facility] 09-12-2023 History of Presen t illness Narrative Radiology Service Progress Note PATIENT NAME: Suhas Aburto DATE OF SERVICE: September 12, 2023 TIME: [...] IV DATA: Not applicable SIGNED BY: RT Willa(R) September 12, 2023 3:36 PM documented in this encounter [facility] 09-12-2023 History of Presen t illness Narrative This note was created using Scaled Agileter. Subjective Suhas Aburto is a 58 year old female. HPI [...] mi Diabetes Brother Coronary Artery Disease Brother [place] Social History Tobacco Use Smoking status: Never [...] evaluation. PRINCE Colón documented in this encounter [facility] 08-28-2023 Miscellaneous Notes Patient calls and notified of results and providers instructions. Patient verbalizes understanding. Love Chambers RN Left message for patient to return call. Elizabeth Mccormack Please notify that patient was positive for flu. Past treatment window. Usually contagious for 5-7 days. Return to work when 24 hours fever free. documented in this encounter [facility] 08-27-2023 History of Presen t illness Narrative [...] no wheezes or crackles, no increased [facility] 11/16/22: EST GFR - AA 104 [...] NAAT, ROUTINE - [facility] Julian Miguel MD documented in this encounter [facility] 02-23-2023 History of Presen t illness Narrative Images from the original note were not included. Subjective Rash Pertinent negatives include no fever. Suhas Aburto is a 57 year old female who [...] mi Diabetes Brother Coronary Artery Disease Brother [place] Social History Tobacco Use Smoking status: Never [...] Meera Pa APRN.CNP documented in this encounter [facility] 02-23-2023 Instructions Meera Pa APRN.CNP - 02/23/2023 [...] drainage or pus). documented in this encounter [facility] 11-14-2022 Instructions Meera Pa APRN.CNP - 11/14/2022 [...] medical evaluation if any occur. Meera Pa APRN.CNP documented in this encounter [facility] 11-14-2022 History of Presen t illness Narrative Subjective HPI Suhas Aburto is a 57 year old female who presents due to being out of her hypertension medication and some other routine meds. She states she accidentally signed a form to have her records transferred to another doctor and this was due to her misunderstanding as Bahraini is her second language. She did not [...] an appointment with a new PCP at [facility] but she has since run out of her medication. She went to [facility] to have these refilled and was told they could not refill chronic meds. 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 Meera Pa APRN.ACCELERATOR SYSTEMS DIRECTOR documented in this encounter [facility] 01-23-2013 History of Past i llness Narrative Problem Noted Date Resolved Date Neck pain 01/23/2013 06/28/2016 Blood in stool 08/31/2011 03/24/2014 Anemia, unspecified 08/31/2011 06/28/2016 Dyspepsia and other specifie d disorders of function of stomach 10/04/2010 11/16/2015 Anxiety state, unspecified 07/04/200706/28 Headache(784.0) 07/04/2007 06/28/2016 documented as of this encounter (statuses as of 11/15/2022) [facility] History of Past illness Narrative* Problem Noted Date Resolved Date Neck pain 01/23/2013 06/28/2016 Blood in stool 08/31/2011 03/24/2014 Anemia, unspecified 08/31/2011 06/28/2016 Dyspepsia and other specifie d disorders of function of stomach 10/04/2010 11/16/2015 Anxiety state, unspecified 07/04/200706/28 Headache(784.0) 07/04/2007 06/28/2016 documented as of this encounter (statuses as of 02/23/2023) [facility] of Past illness Narrative* Problem Noted Date Diagnosed Date Resolved Date Neck pain 01/23/2013 06/28/2016 Blood in stool 08/31/2011 03/24/2014 Anemia, unspecified 08/31/2011 06/28/20 16 Dyspepsia and other specifie d disorders of function of stomach 10/04/2010 11/16/2015 Anxiety state, unspecified 07/04/2007 0 06/28/2016 Headache(784.0) 07/04/2007 06/28/2016 documented as of this encounter (statuses as of 08/27/2023) [facility] of Past illness Narrative* Problem Noted Date Diagnosed Date Resolved Date Neck pain 01/23/2013 06/28/2016 Blood in stool 08/31/2011 03/24/2014 Anemia, unspecified 08/31/2011 06/28/20 16 Dyspepsia and other specifie d disorders of function of stomach 10/04/2010 11/16/2015 Anxiety state, unspecified 07/04/2007 0 06/28/2016 Headache(784.0) 07/04/2007 06/28/2016 documented as of this encounter (statuses as of 08/28/2023) [facility] of Past illness Narrative* Problem Noted Date Diagnosed Date Resolved Date Neck pain 01/23/2013 06/28/2016 Blood in stool 08/31/2011 03/24/2014 Anemia, unspecified 08/31/2011 06/28/20 16 Dyspepsia and other specifie d disorders of function of stomach 10/04/2010 11/16/2015 Anxiety state, unspecified 07/04/2007 0 06/28/2016 Headache(784.0) 07/04/2007 06/28/2016 documented as of this encounter (statuses as of 09/13/2023) [facility] Diagnosis Arthritis pain- Primary Arthropathy, unspecified, site unspecified Essential hypertension Unspecified essential hypertension documented in [facility] Diagnosis Onset Date Resolution Status Osteoarthritis of left knee chronic Osteoarthritis of left knee chronic Osteoarthritis of left knee chronic Osteoarthritis of left knee chronic Acute nasopharyngitis [common cold] acute Encounter for screening for COVID-19 acute Hypertension chronic [facility] Work Phone: Evaluation note* Diagnosis Onset Date Resolution Status Daytime hypersomnia acute [facility] Work Phone: Evaluation note* Diagnosis Rash- Primary Rash and other nonspecific skin eruption documented [facility] this encounter [facility] noteNo assessment information availableWAultman [facility] Work Phone: Evaluation note* Diagnosis URI, acute- Primary Acute upper respiratory infections of unspecified site [facility]* Diagnosis Acute cough- Primary Bacterial sinusitis Unspecified sinusitis (chronic) documented in this encounter [facility] note* Diagnosis Bacterial sinusitis- Primary Unspecified sinusitis (chronic) Fatigue, unspecified type [facility]* Diagnosis Blurred vision, bilateral- Primary Other specified visual disturbances Refractive error Unspecified disorder of refraction and accommodation Pseudophakia Lens replaced by other means Dry eye syndrome, bilateral [facility]* Diagnosis Well adult exam- Primary [...] for breast cancer [facility]* Diagnosis Viral illness- Primary Unspecified viral infection, in conditions classified elsewhere and of unspecified site documented in this encounter [facility] note* Diagnosis HYPERTENSION NOS- Primary Unspecified essential [...] unspecified Acute cough documented in this encounter [facility] note* Diagnosis HYPERTENSION NOS- Primary Unspecified essential [...] depressive disorder (HCC) documented [facility]* Diagnosis HYPERTENSION NOS- Primary Unspecified [...] malignant neoplasms, colon documented in this encounter [facility] note* Diagnosis HYPERTENSION NOS- Primary Unspecified essential [...] Thoracic or lumbosacral neuritis or radiculitis, unspecified Well woman exam with routine gynecological exam- Primary Routine gynecological examination Upper back pain Screening for cervical cancer Screening for malignant neoplasm of the cervix Screening for colon cancer Special screening for malignant neoplasms, colon [facility]* Diagnosis HYPERTENSION NOS- Primary Unspecified [...] Thoracic or lumbosacral neuritis or radiculitis, unspecified Painful urination- Primary Dysuria Acute UTI Urinary tract infection, site not specified documented [facility]* Diagnosis HYPERTENSION NOS- Primary Unspecified essential hypertension Adjustment disorder with mixed anxiety and depressed mood Essential hypertension- Primary Unspecified essential hypertension Routine health maintenance Routine general medical examination at a [facility] facility Encounter for screening mammogram for malignant neoplasm of breast Other screening mammogram Vitamin D deficiency Unspecified vitamin D deficiency Malaise and fatigue Other malaise and fatigue Insomnia, unspecified Iron deficiency anemia secondary to inadequate dietary iron intake Right lumbar radiculopathy Thoracic or lumbosacral neuritis or radiculitis, unspecified Foot pain, right- Primary Pain in limb Foot pain, right Pain in limb [facility]* Diagnosis HYPERTENSION NOS- Primary Unspecified essential hypertension Adjustment disorder with mixed anxiety and depressed mood Essential hypertension- Primary Unspecified essential hypertension Routine health maintenance Routine general medical examination at a [facility] facility Encounter for screening mammogram for malignant neoplasm of breast Other screening mammogram Vitamin D deficiency Unspecified vitamin D deficiency Malaise and fatigue Other malaise and fatigue Insomnia, unspecified Iron deficiency anemia secondary to inadequate dietary iron intake Right lumbar radiculopathy Thoracic or lumbosacral neuritis or radiculitis, unspecified Foot pain, right Pain in limb documented [facility] this encounter [facility]* Diagnosis HYPERTENSION NOS- Primary Unspecified essential hypertension Adjustment disorder with mixed anxiety and depressed mood Essential hypertension- Primary Unspecified essential hypertension Routine health maintenance Routine general medical examination at a [facility] facility Encounter for screening mammogram for malignant neoplasm of breast Other screening mammogram Vitamin D deficiency Unspecified vitamin D deficiency Malaise and fatigue Other malaise and fatigue Insomnia, unspecified Iron deficiency anemia secondary to inadequate dietary iron intake Right lumbar radiculopathy Thoracic or lumbosacral neuritis or radiculitis, unspecified Essential hypertension- Primary Unspecified essential hypertension Numbness and tingling in left hand Disturbance of skin sensation Pain in right foot Pain in limb Mild episode of recurrent major depressive disorder Generalized anxiety disorder Iron deficiency anemia, unspecified iron deficiency anemia type Vitamin D deficiency Unspecified vitamin D deficiency Screening for lipid disorders Screening for thyroid disorder Screening for diabetes mellitus Encounter for screening mammogram for malignant neoplasm of breast Other screening mammogram Screening for colon cancer Special screening for malignant neoplasms, colon [facility] Dis[facility] instructionsAdditional Instructions EKG cardiac workup negative. Urine toxicology screen did return positive for marijuana substance. This is from accidental ingestion. Symptoms are improving. Blood pressure and heart rate improved. Follow-up with your doctor.[facility] Work Phone: Reason for referral (narrative)* Diagnostic Procedure Only (Routine) - Pending Review Specialty Diagnoses / Procedures Referred By Contac t Referred To Contact [facility] Diagnoses Encounter for screening mammogram for breast cancer Procedures DOUG SCREENING SCREENING MAMMOGRAPHY BI 2-VIEW BREAST INC CAD Nora Robertson APRN.ACCELERATOR SYSTEMS DIRECTOR [address] [place] [address] [facility] [address] [place] [address] Referral ID Status Reason Start Date Expiration Date Visits Requested Visits Authorized [id number] Pending Review Auto-Generat ed Referral 02/21/2024 03/22/2025 1 1 * Consult, Test, Treat (Routine) - Authorized Specialty Diagnoses / Procedures Referred By Contac t Referred To Contact General Surgery / GENERAL SURGERY Diagnoses Screening for colon cancer Procedures CONSULT TO GENERAL SURGERY OFFICE/OUTPATIENT [facility] 60 MINUTES Nora Robertson APRN.ACCELERATOR SYSTEMS DIRECTOR [address] [place] [address] [facility] [address] [place] [address] Referral ID Status Reason Start Date Expiration Date Visits Requested Visits Authorized [id number] Authorized PCP Requested Referral 02/21/2024 02/20/2025 1 1 Electronically signed by Nora Robertson HORIZONTAL BORING MILL OPERATOR.ACCELERATOR SYSTEMS DIRECTOR at 02/21/2024 11:04 AM EDT [facility] ([facility]arrative)No reason for referral information availableWAultman Or[facility] Work Phone: Reason for visit Narrative* Diagnostic Procedure Only (Urgent) - Pending Review Specialty Diagnoses / Procedures Referred By Aloac t Referred To Contact [facility] Diagnoses Foot pain, right Procedures XR FOOT GENERAL 3V AP/LAT/OBL RIGHT RADEX FOOT COMPLETE MINIMUM 3 VIEWS Julissa Soto, PRINCE [address] [place] [address] Phone: tel: fax: [place] [address] Referral ID Status Reason Start Date Expiration Date Visits Requested Visits Authorized [id number] Pending Review Auto-Generat ed Referral 02/18/2025 03/20/2026 1 1 [facility] Chief Complaint and Reason for Visit Chief Complaint LEFT KNEE rm 2 xray left knee left knee RIGHT KNEE COLD SYMPTOMS OSTEOARTHRITIS OF L KNEE/RX HERE Reason for Visit Osteoarthritis of le ft knee Osteoarthritis of left knee Osteoarthritis of left knee Osteoarthritis of left knee Acute nasopharyngitis [common cold] Encounter for screening for COVID-19 Hypertension Chief Complaint OSTEOARTHRITIS OF L KNEE/RX HERE LEFT LEG PAIN Sleep problems Reason for Visit Daytime hypersomnia Chief Complaint EORDER- RIGHT SHOULD ER Chief Complaint MEDICATION REFILL Chief Complaint Admit Date SYNCOPE, ACCIDENTAL INGESTION May 7:20pm Family History No Family History Records Found Relationship Condition Age at Onset Recorded Date/T chelly brother Myocardial infarction Unknown Sudden cardiac Unknown brother Coronary artery disease Unknown Status post coronary artery bypass graft Unknown Liver failure Unknown mother Malignant neoplasm Unknown Advance Directives No Advanced Directives Records Found Advance Directive Response Recorded Date/ Time Advance Directives No June 10:09am Living Will No July 06, 2020 9:03am Power of Slip Maker No June 9:03am Advance Directive Response Recorded Date/ Time Advance Directives No June 11:09am Living Will No July 06, 2020 10:03am Power of Slip Maker No June 10:03am Advance Directive Response Recorded Date/ Time Advance Directives No June 11:09am Living Will No January 08, 2024 2:23pm Power of Slip Maker No January 07 2:23pm Advance Directive Response Recorded Date/ Time Do you have a Healthcare Power of Slip Maker? No May 27, 2025 7:42pm Health Concerns Infection Onset Date Last Indicated Resolved Time COVID-19 Rule-Out 08/27/2023 08/27/2023 08/28/2023 1:47 AM EST Reason for Referral Specialty Diagnoses / Procedures Referred By Geoffrey magallanes Referred To Contact [facility] Diagnoses Chronic pain of left knee Primary osteoarthritis of left knee Procedures CONSULT TO PHYSICAL THERAPY PHYSICAL THERAPY EVALUATION HIGH COMPLEX 45 MINS Nora Robertson HORIZONTAL BORING MILL OPERATOR.ACCELERATOR SYSTEMS DIRECTOR [address] [place] [address] [facility] [place] [address] [place] [address] Referral ID Status Reason Start Date Expiration Date Visits Requested Visits Authorized [id number] Pending Review Auto-Generat ed Referral 07/21/2024 07/21/2025 1 1 Specialty Diagnoses / Procedures Referred By Contac t Referred To Contact Orthopedics / [facility] Diagnoses Primary osteoarthritis of left knee Procedures CONSULT TO ORTHOPAEDIC SURGERY OFFICE/OUTPATIENT NEW HIGH MDM 60 MINUTES Nora Robertson HORIZONTAL BORING MILL OPERATOR.ACCELERATOR SYSTEMS DIRECTOR [address] [place] [address] Emilie Negro PA-C [address] [place] [address] Referral ID Status Reason Start Date Expiration Date Visits Requested Visits Authorized [id number] Authorized PCP Requested Referral 07/21/2024 07/21/2025 1 1 Specialty Diagnoses / Procedures Referred By Contac t Referred To Contact General Surgery / [facility] Diagnoses Colon cancer screening Procedures CONSULT TO GENERAL SURGERY OFFICE/OUTPATIENT NEW HIGH MDM 60 MINUTES Nora Robertson HORIZONTAL BORING MILL OPERATOR.ACCELERATOR SYSTEMS DIRECTOR [address] [place] [address] Elizabeth Bland MD [address] [place] [address] Referral ID Status Reason Start Date Expiration Date Visits Requested Visits Authorized [id number] Authorized PCP Requested Referral 07/21/2024 07/21/2025 1 1 Specialty Diagnoses / Procedures Referred By Contac t Referred To Contact General Surgery / [facility] Diagnoses Screening for colon cancer Procedures CONSULT TO GENERAL SURGERY OFFICE/OUTPATIENT NEW HIGH MDM 60 MINUTES Nora Robertson, HORIZONTAL BORING MILL OPERATOR.ACCELERATOR SYSTEMS DIRECTOR [address] [place] [address] Elizabeth Bland MD [address] [place] [address] Referral ID Status Reason Start Date Expiration Date Visits Requested Visits Authorized [id number] Authorized PCP Requested Referral 09/18/2024 09/18/2025 1 1 Summary Purpose Additional Source Comments Source Comments (unrecognize d section and content) In the event this informatio n is protected by the Federal Confidentiality of Alcohol and Drug Abuse Patient Records regulations: The Federal rules restrict any use of the information to criminally investigate or prosecute any alcohol or drug abuse patient.[facility] event this information is protected by the Federal Confidentiality of Alcohol and Drug Abuse Patient Records regulations: The Federal rules restrict any use of the information to criminally investigate or prosecute any alcohol or drug abuse patient.[facility] the event this information is protected by the Federal Confidentiality of Alcohol and Drug Abuse Patient Records regulations: The Federal rules restrict any use of the information to criminally investigate or prosecute any alcohol or drug abuse patient.[facility] the event this information is protected by the Federal Confidentiality of Alcohol and Drug Abuse Patient Records regulations: The Federal rules restrict any use of the information to criminally investigate or prosecute any alcohol or drug abuse patient.[facility] CenterIn the event this information is protected by the Federal Confidentiality of Alcohol and Drug Abuse Patient Records regulations: The Federal rules restrict any use of the information to criminally investigate or prosecute any alcohol or drug abuse patient.[facility] CenterIn the event this information is protected by the Federal Confidentiality of Alcohol and Drug Abuse Patient Records regulations: The Federal rules restrict any use of the information to criminally investigate or prosecute any alcohol or drug abuse patient.[facility] CenterIn the event this information is protected by the Federal Confidentiality of Alcohol and Drug Abuse Patient Records regulations: The Federal rules restrict any use of the information to criminally investigate or prosecute any alcohol or drug abuse patient.[facility] CenterIn the event this information is protected by the Federal Confidentiality of Alcohol and Drug Abuse Patient Records regulations: The Federal rules restrict any use of the information to criminally investigate or prosecute any alcohol or drug abuse patient.[facility] CenterIn the event this information is protected by the Federal Confidentiality of Alcohol and Drug Abuse Patient Records regulations: The Federal rules restrict any use of the information to criminally investigate or prosecute any alcohol or drug abuse patient.[facility] CenterIn the event this information is protected by the Federal Confidentiality of Alcohol and Drug Abuse Patient Records regulations: The Federal rules restrict any use of the information to criminally investigate or prosecute any alcohol or drug abuse patient.[facility] CenterIn the event this information is protected by the Federal Confidentiality of Alcohol and Drug Abuse Patient Records regulations: The Federal rules restrict any use of the information to criminally investigate or prosecute any alcohol or drug abuse patient.[facility] CenterIn the event this information is protected by the Federal Confidentiality of Alcohol and Drug Abuse Patient Records regulations: The Federal rules restrict any use of the information to criminally investigate or prosecute any alcohol or drug abuse patient.[facility] CenterIn the event this information is protected by the Federal Confidentiality of Alcohol and Drug Abuse Patient Records regulations: The Federal rules restrict any use of the information to criminally investigate or prosecute any alcohol or drug abuse patient.[facility]In the event this information is protected by the Federal Confidentiality of Alcohol and Drug Abuse Patient Records regulations: The Federal rules restrict any use of the information to criminally investigate or prosecute any alcohol or drug abuse patient.[facility] CenterIn the event this information is protected by the Federal Confidentiality of Alcohol and Drug Abuse Patient Records regulations: The Federal rules restrict any use of the information to criminally investigate or prosecute any alcohol or drug abuse patient.[facility] CenterIn the event this information is protected by the Federal Confidentiality of Alcohol and Drug Abuse Patient Records regulations: The Federal rules restrict any use of the information to criminally investigate or prosecute any alcohol or drug abuse patient.[facility] CenterIn the event this information is protected by the Federal Confidentiality of Alcohol and Drug Abuse Patient Records regulations: The Federal rules restrict any use of the information to criminally investigate or prosecute any alcohol or drug abuse patient.[facility] CenterIn the event this information is protected by the Federal Confidentiality of Alcohol and Drug Abuse Patient Records regulations: The Federal rules restrict any use of the information to criminally investigate or prosecute any alcohol or drug abuse patient.[facility] CenterIn the event this information is protected by the Federal Confidentiality of Alcohol and Drug Abuse Patient Records regulations: The Federal rules restrict any use of the information to criminally investigate or prosecute any alcohol or drug abuse patient.[facility] CenterIn the event this information is protected by the Federal Confidentiality of Alcohol and Drug Abuse Patient Records regulations: The Federal rules restrict any use of the information to criminally investigate or prosecute any alcohol or drug abuse patient.[facility] CenterIn the event this information is protected by the Federal Confidentiality of Alcohol and Drug Abuse Patient Records regulations: The Federal rules restrict any use of the information to criminally investigate or prosecute any alcohol or drug abuse patient.[facility] CenterIn the event this information is protected by the Federal Confidentiality of Alcohol and Drug Abuse Patient Records regulations: The Federal rules restrict any use of the information to criminally investigate or prosecute any alcohol or drug abuse patient.[facility] CenterIn the event this information is protected by the Federal Confidentiality of Alcohol and Drug Abuse Patient Records regulations: The Federal rules restrict any use of the information to criminally investigate or prosecute any alcohol or drug abuse patient.[facility] CenterIn the event this information is protected by the Federal Confidentiality of Alcohol and Drug Abuse Patient Records regulations: The Federal rules restrict any use of the information to criminally investigate or prosecute any alcohol or drug abuse patient.[facility] CenterIn the event this information is protected by the Federal Confidentiality of Alcohol and Drug Abuse Patient Records regulations: The Federal rules restrict any use of the information to criminally investigate or prosecute any alcohol or drug abuse patient.[facility] CenterIn the event this information is protected by the Federal Confidentiality of Alcohol and Drug Abuse Patient Records regulations: The Federal rules restrict any use of the information to criminally investigate or prosecute any alcohol or drug abuse patient.[facility] CenterIn the event this information is protected by the Federal Confidentiality of Alcohol and Drug Abuse Patient Records regulations: The Federal rules restrict any use of the information to criminally investigate or prosecute any alcohol or drug abuse patient.[facility] CenterIn the event this information is protected by the Federal Confidentiality of Alcohol and Drug Abuse Patient Records regulations: The Federal rules restrict any use of the information to criminally investigate or prosecute any alcohol or drug abuse patient.[facility] CenterIn the event this information is protected by the Federal Confidentiality of Alcohol and Drug Abuse Patient Records regulations: The Federal rules restrict any use of the information to criminally investigate or prosecute any alcohol or drug abuse patient.[facility] CenterIn the event this information is protected by the Federal Confidentiality of Alcohol and Drug Abuse Patient Records regulations: The Federal rules restrict any use of the information to criminally investigate or prosecute any alcohol or drug abuse patient.[facility] Reason for Visit (unrecogniz ed section and content) 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 Diagnoses / Procedures Referred By Geoffrey t Referred To Contact Diagnoses primary care Procedures OFFICE CONSULT NEW/EST 20 MIN Nora Robertson APRN.ACCELERATOR SYSTEMS DIRECTOR [address] [place] [address] [place] [address] Referral ID Status Reason Start Date Expiration Date Visits Requested Visits Authorized [id number] Authorized Patient Cleared - Qualified 100% FAS 07/09/2024 10/07/2024 99 99 Reason Comments Blurred Vision Both Eyes Specialty Diagnoses / Procedures Referred By Geoffrey t Referred To Contact [facility] Diagnoses fatigue, eyes feel heavy, congestion x 5 days Procedures EST SAME DAY Self [facility] [address] [address] [place] [address] Referral ID Status Reason Start Date Expiration Date Visits Requested Visits Authorized [id number] Authorized Patient Cleared - Qualified 100% FAS [...] Care Specialty Diagnoses / Procedures Referred By Geoffrey t Referred To Contact Family Medicine / FAMILY MEDICINE Diagnoses new pt Procedures 4C NEW Nora Robertson APRN.ACCELERATOR SYSTEMS DIRECTOR [address] [place] [address] Nora Robertson APRN.ACCELERATOR SYSTEMS DIRECTOR [address] [place] [address] Referral ID Status Reason Start Date Expiration Date Visits Requested Visits Authorized [id number] Authorized Patient Cleared - Qualified 100% FAS 02/21/2024 05/21/2024 99 99 Reason Comments Headache Bodyaches x last nig ht Specialty Diagnoses / Procedures Referred By Contac t Referred To Contact Family Medicine / FAMILY MEDICINE Diagnoses new pt Procedures 4C NEW Nora Robertson, HORIZONTAL BORING MILL OPERATOR.ACCELERATOR SYSTEMS DIRECTOR [address] [place] [address] Nora Robertson, HORIZONTAL BORING MILL OPERATOR.ACCELERATOR SYSTEMS DIRECTOR [address] [place] [address] Reason Onset Date Comments Return Provider Call 03/30/2024 Reason Comments Lab Orders Reason Onset Date Comments ED [facility]RE[facility] Reason Onset Date Comments Refill Request 07/09/2024 Reason Comments Refill Request Depression Pt states dose is wo rking Reason Comments Urinary Problem Possible uti, painfu l urination, chills, body aches x 1 day Reason Comments Refill Request Reason Comments right foot pain X 1 day-not sure wha t she did thinks she may have twisted it Specialty Diagnoses / Procedures Referred By Geoffrey magallanes Referred To Contact [facility] Diagnoses Right foot injury X 1 day Procedures EST SAME DAY [facility] [address] [place] [address] Phone: tel: [facility] [address] [place] [address] Phone: tel: Referral ID Status Reason Start Date Expiration Date Visits Requested Visits Authorized [id number] Authorized Patient Cleared - Qualified 100% FAS 02/18/2025 05/19/2025 99 99 Reason Comments Musculoskeletal Problem Has been having random hand numbness since she feel last year Specialty Diagnoses / Procedures Referred By Geoffrey magallanes Referred To Contact Internal Medicine / [facility] Diagnoses Right foot injury X 1 day Procedures EST SAME DAY [facility] [address] [place] [id number] Phone: tel: [facility] [address] [place] [id number] Phone: tel: Referral ID Status Reason Start Date Expiration Date Visits Requested Visits Authorized [id number] Authorized Patient Cleared - Qualified 100% FAS 02/18/2025 05/19/2025 99 99 Reason Comments Appointment EMG Referral Reason Comments Appointment Scheduling Reason Onset Date Comments Results 03/16/2025 Reason Onset Date Comments ED Follow-up 05/27/2025 [place] [facility] 2024 Care Teams (unrecognized sec tion and content) Satellite Dish Technician Relationship Specialty Start Date End Date Finesse Cassius Mcrae PCP - General Gerontology 03/15/18 Team Status: Active Member Role Status Dates Dr. Cassius Kilpatrick MD Family Provider Active Shelia Steele DO Primary Care Provider Active Team Status: Inactive Member Role Status Dates Dr. María Marion MD Primary Care Provider, Referri ng Provider Active Dr. Matt Gill DO Attending Provider Active Team Status: Inactive Member Role Status Dates Dr. María Marion MD Primary Care Provider Active Dr. Vishal Ospina MD Attending Provider Active Team Status: Inactive Member Role Status Dates Dr. María Marion MD Primary Care Provider, Referri ng Provider Active Bharati MORRISON, [place] Attending Provider Active Team Status: Inactive Member Role Status Dates Dr. María Marion MD Primary Care Provider, Referri ng Provider Active Tadeo MORRISON, [place] Attending Provider Active Team Status: Active Member Role Status Dates Dr. María Marion MD Primary Care Provider Active Dr. Matt Gill DO Attending Provider, Referring Provider Active Team Status: Inactive Member Role Status Dates Shelia Steele DO Primary Care Provi cosmo, Attending Provider, Referring Provider Active Team Status: Inactive Member Role Status Dates Shelia Steele DO Primary Care Provider, Referring Provider Active Sherry Hickey ANALYTICS LEAD, ANALYTICS LEAD-C Attending Provider Active Team Status: Inactive Member Role Status Dates Shelia Steele DO Primary Care Provider, Referring Provider Active Payal Choudhury ANALYTICS LEAD, ANALYTICS LEAD-C Attending Provider Active Team Status: Inactive Member Role Status Dates Dr. María Marion MD Primary Care Provider Active Dr. Matt Gill DO Attending Provider, Referring Provider Active Satellite Dish Technician Relationship Specialty Start Date End Date Shelia Steele DO [address] [place] [address] PCP - General Family Medicine 02/23/23 Team Status: Inactive Member Role Status Dates Shelia Steele , DO Primary Care Provider Active Dr. Amber Ojeda MD Attending Provider Active Satellite Dish Technician Relationship Specialty Start Date End Date CedricShelia trejoDO [address] [facility] [address] [place] [address] PCP - General Family Medicine 02/23/23 Satellite Dish Technician Relationship Specialty Start Date End Date Shelia Steele DO [address] [facility] [address] [place] [address] PCP - General Family Medicine 02/23/23 Satellite Dish Technician Relationship Specialty Start Date End Date CedricShelia trejoDO [address] [facility] [address] [place] [address] PCP - General Family Medicine 02/23/23 Team Status: Inactive Member Role Status Dates Shelia Steele DO Primary Care Provider Active Sherry Hickey ANALYTICS LEAD, ANALYTICS LEAD-C Attending Provider Active Team Status: Inactive Member Role Status Dates Shelia Steele , DO Primary Care Provider Active Latosha Mackey MD Attending Provider, Referring Provide r Active Team Status: Inactive Member Role Status Dates Shelia Steele DO Primary Care Provider Active Dr. Ezekiel Poole , DO Emergency Provider Active Satellite Dish Technician Relationship Specialty Start Date End Date Josue Steeleistin SindiDO [address] [facility] [address] [place] [address] PCP - General Family Medicine 02/23/23 Satellite Dish Technician Relationship Specialty Start Date End Date CedricShelia fryeDO [address] [facility] [address] [place] [address] PCP - General Family Medicine 02/23/23 Satellite Dish Technician Relationship Specialty Start Date End Date Nora Robertson, SAMIRA.ACCELERATOR SYSTEMS DIRECTOR [address] [place] [address] PCP - General Family Medicine 02/21/24 Satellite Dish Technician Relationship Specialty Start Date End Date Queden, Nora A, HORIZONTAL BORING MILL OPERATOR.ACCELERATOR SYSTEMS DIRECTOR [address] [place] [address] PCP - General Family Medicine 02/21/24 Satellite Dish Technician Relationship Specialty Start Date End Date Queden, Nora A, HORIZONTAL BORING MILL OPERATOR.ACCELERATOR SYSTEMS DIRECTOR [address] [place] [address] PCP - General Family Medicine 02/21/24 Satellite Dish Technician Relationship Specialty Start Date End Date Queden, Nora A, HORIZONTAL BORING MILL OPERATOR.ACCELERATOR SYSTEMS DIRECTOR [address] [place] [address] PCP - General Family Medicine 02/21/24 Satellite Dish Technician Relationship Specialty Start Date End Date QuedenCarolynNora A, HORIZONTAL BORING MILL OPERATOR.ACCELERATOR SYSTEMS DIRECTOR [address] [place] [address] PCP - General Family Medicine 02/21/24 Satellite Dish Technician Relationship Specialty Start Date End Date Queden, Nora A, HORIZONTAL BORING MILL OPERATOR.ACCELERATOR SYSTEMS DIRECTOR [address] [place] [address] PCP - General Family Medicine 02/21/24 Satellite Dish Technician Relationship Specialty Start Date End Date Queden, Nora A, HORIZONTAL BORING MILL OPERATOR.ACCELERATOR SYSTEMS DIRECTOR [address] [place] [address] PCP - General Family Medicine 02/21/24 Satellite Dish Technician Relationship Specialty Start Date End Date Queden, Nora A, HORIZONTAL BORING MILL OPERATOR.ACCELERATOR SYSTEMS DIRECTOR [address] [place] [address] PCP - General Family Medicine 02/21/24 Satellite Dish Technician Relationship Specialty Start Date End Date Shelia Steele DO [address] [place] [address] PCP - General Family Medicine 02/23/23 02/20/24 Satellite Dish Technician Relationship Specialty Start Date End Date Nora Robertson, HORIZONTAL BORING MILL OPERATOR.ACCELERATOR SYSTEMS DIRECTOR [address] [place] [address] PCP - General Family Medicine 02/21/24 Satellite Dish Technician Relationship Specialty Start Date End Date Nora Robertson, HORIZONTAL BORING MILL OPERATOR.ACCELERATOR SYSTEMS DIRECTOR [address] [place] [address] PCP - General Family Medicine 02/21/24 Satellite Dish Technician Relationship Specialty Start Date End Date Nora Robertson, HORIZONTAL BORING MILL OPERATOR.ACCELERATOR SYSTEMS DIRECTOR [address] [place] [address] PCP - General Family Medicine 02/21/24 Satellite Dish Technician Relationship Specialty Start Date End Date Nora Robertson, HORIZONTAL BORING MILL OPERATOR.ACCELERATOR SYSTEMS DIRECTOR [address] [place] [address] PCP - General Family Medicine 02/21/24 Satellite Dish Technician Relationship Specialty Start Date End Date Nora Robertson, HORIZONTAL BORING MILL OPERATOR.ACCELERATOR SYSTEMS DIRECTOR [address] [place] [address] PCP - General Family Medicine 02/21/24 Satellite Dish Technician Relationship Specialty Start Date End Date Nora Robertson, HORIZONTAL BORING MILL OPERATOR.ACCELERATOR SYSTEMS DIRECTOR [address] [place] [address] PCP - General Family Medicine 02/21/24 Satellite Dish Technician Relationship Specialty Start Date End Date Nora Robertson, HORIZONTAL BORING MILL OPERATOR.ACCELERATOR SYSTEMS DIRECTOR [address] [place] [address] PCP - General Family Medicine 02/21/24 Satellite Dish Technician Relationship Specialty Start Date End Date Nora Robertson, HORIZONTAL BORING MILL OPERATOR.ACCELERATOR SYSTEMS DIRECTOR [address] [place] [address] PCP - General Family Medicine 02/21/24 Satellite Dish Technician Relationship Specialty Start Date End Date Nora Robertson, HORIZONTAL BORING MILL OPERATOR.ACCELERATOR SYSTEMS DIRECTOR [address] [place] [address] PCP - General Family Medicine 02/21/24 Satellite Dish Technician Relationship Specialty Start Date End Date Nora Robertson, HORIZONTAL BORING MILL OPERATOR.ACCELERATOR SYSTEMS DIRECTOR [address] [facility] [address] [facility] [address] PCP - General Family Medicine 02/21/24 Satellite Dish Technician Relationship Specialty Start Date End Date Nora Robertson, HORIZONTAL BORING MILL OPERATOR.ACCELERATOR SYSTEMS DIRECTOR [address] [place] [address] PCP - General Family Medicine 02/21/24 Team Status: Active Member Role/Relationship Status Dates Nora Robertson ANALYTICS LEAD, ANALYTICS LEAD-C Primary Care Provider Active Team Status: Inactive Member Role/Relationship Status Dates Dr. Edgar Doss , DO Emergency Provider Active Start : May 27, 2025 End: May 27, 2025 Nora Robertson ANALYTICS LEAD, ANALYTICS LEAD-C Primary Care Provider Active Start: May 27, 2025 End: May 27, 2025 Satellite Dish Technician Relationship Specialty Start Date End Date Nora Robertson, HORIZONTAL BORING MILL OPERATOR.ACCELERATOR SYSTEMS DIRECTOR [address] [place] [address] PCP - General Family Medicine 02/21/24 Goals (unrecognized section and content) Goals may be documented in a n alternate sectionGoals may be documented in an alternate sectionGoals may be documented in an alternate sectionGoals may be documented in an alternate sectionGoals may be documented in an alternate sectionGoals may be documented in an alternate section INFORMATION SOURCE (unrecogn ized section and content) DATE CREATED AUTHOR 02/26/2025 [facility] DATE CREATED AUTHOR AUTHOR'S ORGANIZ ATION 06/02/2025 [facility] DATE CREATED AUTHOR AUTHOR'S ORGANIZ ATION 06/03/2025 [facility] DATE CREATED AUTHOR AUTHOR'S ORGANIZ ATION 06/05/2025 [facility] FOR RECORDS PERTAINING TO PATIENTS WHO [...] BE BASED ON THE PRIMARY CLINICAL RECORDS. [employer] provides no warranty or guarantee of the accuracy or completeness of information in this document.
[2025-09-30 02:14] LABS: Differential Indicated SCAN CRITERIA MET
[2025-09-30 02:23] LABS: Anion Gap 14 (5-15); BUN 13 mg/dL (4-19); BUN/Creat Ratio 14.9 RATIO (10-20); Calcium,Total 9.4 mg/dL (7.6-11.0); Carbon Dioxide 22.4 mmol/L (21.0-32.0); Chloride 100 mmol/L (98-108); Estimated Creatinine Clearance 56.65 ml/min (50-250); Glucose 156 mg/dL (70-99); Magnesium 1.9 mg/dL (1.5-2.2); Potassium 4.4 mmol/L (3.3-5.1)
[2025-09-30 02:36] LABS: Troponin T High Sensitivity 7 ng/L (<=14)
[2025-09-30 02:39] LABS: Neutrophil-Band 1 % (0-5); Neutrophil-Segmented 33 % (47-70); Total Cells Counted 100 (MANUAL DIFF)
[2025-09-30 02:41] LABS: Reactive Lymphocyte 1+
[2025-09-30 02:46] LABS: Macrocytosis RARE
[2025-09-30 02:47] LABS: Red Cell Morphology NORM C+C NORMAL (NORM C&C); Smudge Cells RARE
[2025-09-30 02:48] LABS: Differential Comment SCANNED; Scan Smear per Review Criteria MANUAL DIFF
[2025-09-30 02:54] VITALS: BP 164/86
[2025-09-30 03:12] VITALS: BP 166/80; PULSE 65; RESP 18; O2SAT 99
--- NOTE | 2025-09-30 03:13 | EX.ED.DYSGE1 ---
HPI History of Present Illness Chief Complaint: Anxiety Informant: patient, spouse/S.O. and family Narrative Narrative: Patient is a 60-year-old female with past medical history of hypertension hyperlipidemia as well as anxiety and depression. She states that this evening after eating and then performing her nightly prayers she began to feel abnormal. She states that she began to feel extremely thirsty and also short of breath. She states that she took her normal nighttime medications without any symptom improvement and secondary to this unwell feeling presents to the ER for evaluation. [facility] Medical History Anxiety and depression Osteoarthritis of left knee Cataract Arthritis GERD (gastroesophageal reflux disease) Vitamin D deficiency Overweight Anxiety Depression Hyperlipemia Anemia Hypertension Abnormal EKG Chest pain Home Medications ?Medication ?Instructions ?Recorded ?Last Taken ?Type ascorbic acid (vitamin C) 500 mg 500 mg PO DAILY 12/29/19 09/04/24 History tablet acetaminophen 500 mg tablet 500 - 1,000 mg (1 - 2 x 500 mg) PO 07/11/22 Unknown Rx TID-QID PRN fever or pain #60 tabs atenolol 25 mg tablet 25 mg PO QDAY #30 tabs 01/08/24 09/04/24 Rx cholecalciferol (vitamin D3) 25 1,000 unit PO QDAY #30 caps 01/08/24 09/04/24 Rx mcg (1,000 unit) capsule loratadine 10 mg tablet 10 mg PO QDAY PRN allergy symptoms 01/08/24 09/04/24 Rx #30 tabs ibuprofen 600 mg tablet 600 mg PO TID-QID PRN pain #30 tabs 06/17/24 09/05/24 Rx fluoxetine 20 mg capsule 20 mg PO DAILY 09/05/24 09/04/24 History atenolol 25 mg tablet 25 mg PO DAILY 05/27/25 Unknown History cholecalciferol (vitamin D3) 25 25 mcg PO DAILY 05/27/25 Unknown History mcg (1,000 unit) capsule fluoxetine 20 mg capsule 20 mg PO DAILY 05/27/25 Unknown History loratadine 10 mg tablet 10 mg PO DAILY 05/27/25 Unknown History Allergy/AdvReac Type Severity Reaction Status Date / Time atorvastatin (From Lipitor) Allergy Severe Bad skin Verified 09/30/25 00:57 reaction Sulfa (Sulfonamide Allergy Unknown Verified 09/30/25 00:57 Antibiotics) Family History Brother , age 55 or 56 Myocardial infarction Sudden cardiac Brother , 55 or 56 , from liver failure CAD (coronary artery disease) S/P CABG (coronary artery bypass graft) Liver failure Mother Cancer throat Surgical History History of wisdom tooth extraction, class IV edentulism History of Social History household members: family number of children: 3 current occupational status: unemployed pets and animals: No other: Patient has 1 child and 2 stepchildren Smoking Status: Never smoker alcohol intake: never substance use type: does not use caffeine: Yes Type: tea what type of physical activity do you participate in: none seatbelt use: always do you feel safe at home: Yes additional social history: - [place] ROS ROS ED Constitutional Constitutional ED: Denies chills or fever(s) Eyes Eyes: Denies blurry vision or change in vision ENT ENT ED: Denies sore throat Cardiovascular Cardiovascular: Denies chest pain Respiratory/Chest Respiratory/Chest: Denies cough or dyspnea Gastrointestinal Gastrointestinal: Denies abdominal pain, diarrhea, nausea or vomiting Genitourinary Genitourinary ED: Denies dysuria Musculoskeletal Musculoskeletal: Denies myalgias Integumentary Denies rash Neurologic Neurologic: Denies headache(s) Psychiatric Psychiatric: Reports anxiety and depression Hematologic/Lymphatic Hematologic/Lymphatic: Denies easy bleeding or easy bruising EXAM Physical Exam Const Vital Signs: 09/30/25 00:55 09/30/25 01:07 09/30/25 02:54 Temperature 97.5 F L Temperature Source Oral Pulse Rate 89 Respiratory Rate 34 H Blood Pressure 204/101 H 191/100 H 164/86 H Blood Pressure Mean 135 130 112 Pulse Ox 100 Oxygen Delivery Method Room Air 09/30/25 03:12 09/30/25 03:22 Temperature 98.2 F Temperature Source Pulse Rate 65 65 Respiratory Rate 18 18 Blood Pressure 166/80 H 166/80 H Blood Pressure Mean 108 108 Pulse Ox 99 99 Oxygen Delivery Method Room Air Positive well nourished and well developed General Appearance ED: well developed; Negative for pallor HEENT HEENT Narrative: Normocephalic atraumatic No tongue or lip swelling no oral lesions no airway edema or compromise No secondary findings in the posterior pharynx to suggest infection Eyes PERRL and EOMs intact bilaterally General Eye ED: Negative for scleral icterus Neck supple Neck Narrative: No nuchal rigidity or meningeal signs Resp clear to auscultation bilaterally Resp Narrative: Breath sounds are diminished throughout but overall clear to auscultation Tachypnea is noted but no nasal flaring retractions or accessory muscle use. Cardio regular rate and regular rhythm Rate: other Other Details: Heart is regular rate and rhythm without murmurs rubs or gallop Radial and carotid pulses are equal and symmetric No carotid bruit noted GI normal to inspection, nondistended, normoactive bowel sounds, non-tender, non-distended and no masses GI Narrative: No voluntary guarding or rigidity or pulsatile mass No peritoneal signs Auscultation: normoactive bowel sounds Palpation: soft Extremity normal to inspection Extremity Narrative: Negative Homans' sign bilaterally Neuro oriented x3, CN's II-XII intact bilaterally and no sensory deficits noted Neuro Narrative: GCS of 15 Cranial nerves II through XII are grossly intact without focal neurologic finding No pronator drift no dysmetria no truncal ataxia NIH stroke scale score of 0 Sensorium / Orientation: alert Motor Exam: strength 5/5 throughout Psych Mood & Affect: anxious Skin no rashes or lesions noted General Skin Exam: Negative for jaundice or pallor MDM MDM MDM Narrative Medical decision making narrative: Patient arrived to the ER hypertensive and tachypnea. She can only state that she felt off and could not describe specific symptoms such as chest pain abdominal pain nausea or vomiting. In order to assess for endorgan damage from hypertension such as acute kidney injury or acute coronary syndrome basic blood work and an EKG were obtained. Because she was dyspneic upon arrival with a respiratory rate of 34 I did elect to perform a D-dimer to rule out pulmonary embolus or dissection. D-dimer was normal going against. Patient's troponin is 7 and chart review reveals that previous troponin from May of this year was 8 indicating a flat value and no signs of acute coronary syndrome. Blood work showed a stable H&H that was at baseline when compared to previous values as well. In order to assess for lung pathology making her feel unwell and cause her shortness of breath such as pneumonia pneumothorax or pleural effusion a chest x-ray was obtained. As she does have mild leukocytosis a viral swab was obtained to assess for potential COVID influenza or RSV as the cause of her symptoms. Chest x-ray revealed no acute finding and viral swab was negative. The patient's TSH is elevated at 10.8 however this would indicate hypothyroidism and should not cause her hypertension or dyspnea sensation. After she was given Ativan she had resolution of symptoms and her blood pressure improved between 15 and 25% which is the goal reduction in the ER. On reevaluation her neurologic exam remains normal. Therefore at this time with improvement of her blood pressure and overall negative workup I do not feel the need for further intervention in the ER and she is otherwise safe for discharge History & Record Review Discussion w/independent historian: Patient and Family Lab Data Attestation: I reviewed the patient's lab results. Labs: Laboratory Results - last 24 hr 09/30/25 01:36 WBC 12.4 H RBC 4.09 L Hgb 11.1 L Hct 34.9 L MCV 85.3 MCH 27.1 MCHC 31.8 L RDW Std Deviation 40.2 RDW Coeff of Jazmin 13.1 Plt Count 344 MPV 9.6 Immature Gran % (Auto) Not Reportable Neut % (Auto) Not Reportable Lymph % (Auto) Not Reportable Cabell % (Auto) Not Reportable Eos % (Auto) Not Reportable Baso % (Auto) Not Reportable Absolute Neuts (auto) 4.2 Absolute Lymphs (auto) 6.44 H Total Counted 100 Neutrophils % (Manual) 33 L Band Neutrophils % 1 Lymphocytes % (Manual) 52 H Monocytes % (Manual) 7 Eosinophils % (Manual) 7 H Nucleated RBC % 0 Differential Comment SCANNED Diff Path Review May foll Atypical Lymphocytes 2+ Reactive Lymphocytes 1+ Smudge Cells RARE Platelet Estimate ADEQUATE Plt Morphology Comment LARGE RBC Morphology NORM C+C Macrocytosis RARE D-Dimer Quant (PE/DVT) 0.28 Sodium 137 Potassium 4.4 Chloride 100 Carbon Dioxide 22.4 Anion Gap 14 BUN 13 Creatinine 0.88 Estim Creat Clear Calc 56.65 Est GFR (MDRD) Non-Af 75 BUN/Creatinine Ratio 14.9 Glucose 156 H Calcium 9.4 Magnesium 1.9 Troponin T High Sens 7 D TSH 10.800 H Radiography Diagnostic Testing: Clinical Impression(s) from Imaging Studies Chest X-Ray 09/30/25 01:45 IMPRESSION: No Acute Findings. Reading Location: [facility] Chest x-ray as interpreted by the emergency medicine physician reveals no acute infiltrate pneumothorax or pleural effusion Discharge Plan Triage Chief Complaint: Anxiety ED Provider: Aden Hoskins Dx/Rx/DC Orders Clinical Impression: Hypertension, Hyperlipidemia, Anxiety and depression Instructions: ED Anxiety Reaction, ED Hypertension, Established Prescriptions: No Action ascorbic acid (vitamin C) 500 mg tablet 500 mg PO DAILY acetaminophen 500 mg tablet 500 - 1,000 mg PO TID-QID PRN (Reason: fever or pain) Qty: 60 0RF atenolol 25 mg tablet 25 mg PO QDAY Qty: 30 0RF loratadine 10 mg tablet 10 mg PO QDAY PRN (Reason: allergy symptoms) Qty: 30 0RF cholecalciferol (vitamin D3) 25 mcg (1,000 unit) capsule 1,000 unit PO QDAY Qty: 30 0RF ibuprofen 600 mg tablet 600 mg PO TID-QID PRN (Reason: pain) Qty: 30 0RF fluoxetine 20 mg capsule 20 mg PO DAILY atenolol 25 mg tablet 25 mg PO DAILY fluoxetine 20 mg capsule 20 mg PO DAILY loratadine 10 mg tablet 10 mg PO DAILY cholecalciferol (vitamin D3) 25 mcg (1,000 unit) capsule 25 mcg PO DAILY Primary Care Provider: Nora Robertson NP Referrals: Nora Robertson OTHER SPORTS COACH OR INSTRUCTOR, OTHER SPORTS COACH OR INSTRUCTOR-C [Primary Care Provider, Family Practice] Activity Restrictions/Additional Instructions: Your EKG showed no sign of heart damage or abnormal heart rhythm and this correlated with the blood work for your heart being normal. There was no sign of kidney injury or electrolyte abnormality. Your chest x-ray revealed no pneumonia and your test for COVID influenza and RSV was also negative. Your TSH was elevated at approximately 10 today which could indicate hypothyroidism. Follow-up with your family doctor to discuss further testing regarding the thyroid as well as potential medication. Your blood pressure was also elevated today upon arrival. This could be that you need medication adjustment or additional medication to control your blood pressure better or could be from underlying anxiety. Please continue all of your home medication as directed by your doctor and follow-up with them to discuss further testing and treatment options. If symptoms return or you have any further concerns return to the ER for repeat evaluation Print Language: Bhutanese Disposition Disposition: Home, Self Care Discharge Date/Time: 09/30/25 03:29
[2025-09-30 03:22] VITALS: BP 166/80; PULSE 65; RESP 18; TEMP 36.8; O2SAT 99
== END 2025-09-30 03:29 | disposition home or self-care (01) ==
PROVIDERS: Emergency Provider Emergency Medicine; PCP Nurse Practitioner Family; Visit Provider Emergency Medicine
DX: I10 Essential (primary) hypertension (principal); E78.5 Hyperlipidemia, unspecified; F41.9 Anxiety disorder, unspecified; F32.A Depression, unspecified; Z79.899 Other long term (current) drug therapy
CPT/HCPCS: 71045; 80048; 83735; 84443; 84484; 85025; 85379; 87631; 93005; 96361; 96374; 96376; 99283; A4216

== ENCOUNTER 2025-10-07 23:33 | Emergency (ER) | payer SELFPAY ==
[2025-10-07 23:34] VITALS: BP 187/129; PULSE 90; RESP 18; TEMP 36.6; O2SAT 100; BMI 26.4
[2025-10-07 23:37] VITALS: BP 210/91; PULSE 86; RESP 23; O2SAT 100
[2025-10-07 23:42] VITALS: PULSE 80; RESP 21; O2SAT 100
--- NOTE | 2025-10-07 23:43 | EDS_ITS ---
HPI History of Present Illness Chief Complaint: Anxiety Informant: patient and family Onset/Context/Timing Onset: Today Context: Sudden Onset Timing: Continuous Quality: Shaky Location: Generalized Worsened by: Nothing Relieved by: Nothing Narrative Narrative: Patient presents with increasing anxiety that began tonight. Patient states she feels cold all over. Patient states she is having some shivering. Patient states she had an argument with her daughter sarita. Patient states she was lying in bed when the symptoms began. Patient admits to some subjective chills. Patient admits to some tingling down her left arm. Patient denies any weakness. Patient denies any suicidal homicidal ideations. Patient states nothing makes her symptoms worse and nothing makes them better. [facility] Medical History Anxiety Hypertension Anxiety and depression Osteoarthritis of left knee Cataract Arthritis GERD (gastroesophageal reflux disease) Vitamin D deficiency Overweight Anxiety Depression Hyperlipemia Anemia Hypertension Abnormal EKG Chest pain Home Medications ?Medication ?Instructions ?Recorded ?Last Taken ?Type ascorbic acid (vitamin C) 500 mg 500 mg PO DAILY 12/2809/04/24 History tablet acetaminophen 500 mg tablet 500 - 1,000 mg (1 - 2 x 50 0 mg) PO 07/11/22 Unknown Rx TID-QID PRN fever or pain #60 tabs atenolol 25 mg tablet 25 mg PO QDAY #30 tabs 01/0709/04/24 Rx cholecalciferol (vitamin D3) 25 1,000 unit PO QDAY #30 caps 01/08/24 09/04/24 Rx mcg (1,000 unit) capsule loratadine 10 mg tablet 10 mg PO QDAY PRN allergy sy mptoms 01/08/24 09/04/24 Rx #30 tabs ibuprofen 600 mg tablet 600 mg PO TID-QID PRN pain # 30 tabs 06/17/24 09/05/24 Rx fluoxetine 20 mg capsule 20 mg PO DAILY 09/05/2408/16 History atenolol 25 mg tablet 25 mg PO DAILY 05/27/25 Unkn own History cholecalciferol (vitamin D3) 25 25 mcg PO DAILY Unknown History mcg (1,000 unit) capsule fluoxetine 20 mg capsule 20 mg PO DAILY 05/27/25 Unkn own History loratadine 10 mg tablet 10 mg PO DAILY 05/27/25 Unkn own History Allergy/AdvReac Type Severity Reaction Status Date / Time atorvastatin (From Lipitor) Allergy Severe Bad skin Verified 10/07/25 23:37 reaction Sulfa (Sulfonamide Allergy Unknown Verified 10/07/25 23:37 Antibiotics) Family History Brother , age 55 or 56 Myocardial infarction Sudden cardiac Brother , 55 or 56 , from liver failure CAD (coronary artery disease) S/P CABG (coronary artery bypass graft) Liver failure Mother Cancer throat Surgical History History of wisdom tooth extraction, class IV edentulism History of Social History household members: family number of children: 3 current occupational status: unemployed pets and animals: No other: Patient has 1 child and 2 stepchildren Smoking Status: Never smoker alcohol intake: never substance use type: does not use caffeine: Yes Type: tea what type of physical activity do you participate in: none seatbelt use: always do you feel safe at home: Yes additional social history: - Shun BUSTOS ROS ED Constitutional Constitutional ED: Reports chills; Denies fever(s) Eyes Eyes: Denies blurry vision or change in vision ENT ENT ED: Denies rhinorrhea or sore throat Cardiovascular Cardiovascular: Denies chest pain or palpitations Respiratory/Chest Respiratory/Chest: Denies cough or dyspnea Gastrointestinal Gastrointestinal: Denies nausea or vomiting Genitourinary Genitourinary ED: Denies dysuria or hematuria Musculoskeletal Musculoskeletal: Denies back pain or neck pain Integumentary Denies abscess or rash Neurologic Neurologic: Reports paresthesias LUE (Left hand); Denies headache(s) or weakness Psychiatric Psychiatric: Reports anxiety Allergic/Immunologic Allergic/Immunologic ED: Denies mouth swelling or urticaria EXAM Physical Exam Const Vital Signs: 10/07/25 23:34 10/07/25 23:37 10/07/25 23:38 Temperature 97.9 F Temperature Source Oral Pulse Rate 90 86 Respiratory Rate 18 23 H Respiratory Effort Normal Respiratory Pattern Tachypnea Blood Pressure 187/129 H 210/91 H Blood Pressure Mean 148 130 Pulse Ox 100 100 Oxygen Delivery Method Room Air Room Air 10/07/25 23:42 10/07/25 23:45 10/08/25 00:00 Temperature Temperature Source Pulse Rate 80 82 Respiratory Rate 21 H 18 Respiratory Effort Respiratory Pattern Blood Pressure 165/128 H 172/125 H Blood Pressure Mean 138 134 Pulse Ox 100 100 Oxygen Delivery Method 10/08/25 00:00 10/08/25 00:15 10/08/25 00:30 Temperature Temperature Source Pulse Rate 80 Respiratory Rate 14 Respiratory Effort Respiratory Pattern Blood Pressure 172/125 H 173/81 H 154/116 H Blood Pressure Mean 134 108 129 Pulse Ox 100 99 95 Oxygen Delivery Method 10/08/25 00:52 10/08/25 01:00 10/08/25 01:03 Temperature Temperature Source Pulse Rate 76 Respiratory Rate Respiratory Effort Respiratory Pattern Blood Pressure 172/79 H Blood Pressure Mean 104 Pulse Ox 98 97 97 Oxygen Delivery Method 10/08/25 01:15 10/08/25 01:30 10/08/25 01:45 Temperature Temperature Source Pulse Rate 79 79 79 Respiratory Rate 19 H 20 H 13 Respiratory Effort Respiratory Pattern Blood Pressure 180/85 H 159/95 H 169/80 H Blood Pressure Mean 110 114 106 Pulse Ox 98 99 97 Oxygen Delivery Method 10/08/25 02:00 10/08/25 02:15 10/08/25 02:30 Temperature Temperature Source Pulse Rate 78 79 75 Respiratory Rate 19 H 19 H 19 H Respiratory Effort Respiratory Pattern Blood Pressure 122/98 H 141/81 H Blood Pressure Mean 106 100 Pulse Ox 97 98 97 Oxygen Delivery Method 10/08/25 02:32 10/08/25 02:45 10/08/25 04:00 Temperature Temperature Source Pulse Rate 79 74 73 Respiratory Rate 17 18 20 H Respiratory Effort Respiratory Pattern Blood Pressure 166/82 H 150/83 H 134/68 H Blood Pressure Mean 107 101 88 Pulse Ox 99 99 96 Oxygen Delivery Method Positive well nourished and well developed Constitutional Narrative: BMI is 26.5. General Appearance ED: well developed and NAD HEENT Reports moist mucous membranes Neck supple and no JVD Resp normal respiratory effort and clear to auscultation bilaterally Cardio regular rate and regular rhythm GI non-tender and non-distended Palpation: soft Extremity normal to inspection General Extremety ED: Negative for edema or tenderness General Extremity: Negative for edema Neuro oriented x3, CN's II-XII intact bilaterally and no sensory deficits noted Sensorium / Orientation: alert Motor Exam: strength 5/5 throughout Psych mental status grossly normal MDM MDM MDM Narrative Medical decision making narrative: Differential diagnose includes hypertensive urgency, electrolyte abnormality, dehydration, cardiac dysrhythmia, cardiac ischemia, and anxiety. EKG will be obtained to assess for cardiac dysrhythmia and cardiac ischemia. Chest x-ray will be obtained to assess for pneumonia or bronchitis. CBC will be obtained to assess for leukocytosis and anemia. Basic metabolic profile will be obtained to assess for electrolyte abnormality and renal function. High-sensitivity troponin will be obtained to assess for cardiac ischemia. 2-hour repeat high- sensitivity troponin will be obtained to assess for ongoing cardiac ischemia. History & Record Review Additional record(s) reviewed:: Prior inpatient record, Prior outpatient record, Prior ED visit and Prior labs Lab Data Attestation: I reviewed the patient's lab results. Lab results narrative: CBC was reviewed. There is a mild leukocytosis of 15.9. There is mild anemia with hemoglobin of 11.9 and hematocrit 36.1. The remainder is within normal limits. Basic metabolic profile was reviewed. CO2 was slightly low at 17.7. Glucose was slightly elevated at 133. Initial high-sensitivity troponin was rev iewed and was normal at 7. 2-hour repeat high-sensitivity troponin was reviewed and was 17. 4-hour repeat troponin was reviewed and was normal at 10. Labs: Laboratory Results - last 24 hr 10/07/25 10/07/25 10/08/25 23:35 23:42 01:32 WBC 15.9 H RBC 4.33 Hgb 11.9 L Hct 36.1 L MCV 83.4 MCH 27.5 MCHC 33.0 RDW Std Deviation 39.1 RDW Coeff of Jazmin 12.9 Plt Count 427 MPV 10.0 Immature Gran % (Auto) 0.700 Neut % (Auto) 36.1 L Lymph % (Auto) 51.9 H [place] % (Auto) 8.0 Eos % (Auto) 2.5 Baso % (Auto) 0.8 Absolute Neuts (auto) 5.7 Absolute Lymphs (auto) 8.24 H Nucleated RBC % 0 Sodium 137 Potassium 3.4 L Chloride 99 Carbon Dioxide 17.7 L Anion Gap 20 H BUN 14 Creatinine 0.89 Estim Creat Clear Calc 55.07 Est GFR (MDRD) Non-Af 74 BUN/Creatinine Ratio 15.2 Glucose 133 H Calcium 9.7 Troponin T High Sens 7 Troponin T Hi Sens 2 Hr 17 H Troponin T Hi Sens 4Hr POC Glucose 121 H 10/08/25 03:45 WBC RBC Hgb Hct MCV MCH MCHC RDW Std Deviation RDW Coeff of Jazmin Plt Count MPV Immature Gran % (Auto) Neut % (Auto) Lymph % (Auto) [place] % (Auto) Eos % (Auto) Baso % (Auto) Absolute Neuts (auto) Absolute Lymphs (auto) Nucleated RBC % Sodium Potassium Chloride Carbon Dioxide Anion Gap BUN Creatinine Estim Creat Clear Calc Est GFR (MDRD) Non-Af BUN/Creatinine Ratio Glucose Calcium Troponin T High Sens Troponin T Hi Sens 2 Hr Troponin T Hi Sens 4Hr 10 POC Glucose Radiography Chest X-Ray - ED: 2 View, Read by ED Physician, Read by Radiologist and No Acute Disease Diagnostic Testing: Clinical Impression(s) from Imaging Studies Chest X-Ray 10/08/25 00:01 IMPRESSION: No acute pulmonary process Reading Location: [id number] and lateral chest x-ray was obtained. There are 2 views. On my independent interpretation, lung kemp are clear. There is normal cardiac silhouette. Bony thorax is normal. There is no acute process noted. Radiologist also interpreted the x-ray and agrees. EKG Initial EKG: Attestation: I personally reviewed and interpreted this EKG as follows: Interpretation: Sinus Rhythm (80) and No Acute Injury Pattern Comments: EKG was obtained. On my independent interpretation, it showed a normal sinus rhythm with a rate of 80. FL interval, QRS interval, and QTc intervals were all normal. There is borderline left axis deviation at -18. There is minimal criteria for left ventricular hypertrophy. There are no acute ST or T wave changes. Prior EKG tracings: available for review Prior: Unchanged (09/30/2025) Treatment and Re-Evaluation :: Patient was given a dose of Ativan here. Patient was feeling better on reevaluation. Patient was advised of her findings. Patient was instructed to follow-up with her primary care physician in 5 to 7 days for further evaluation. Patient was instructed to return if worse in any way. Patient understood and was agreeable with the plan. All questions were answered. Discharge Plan Triage Chief Complaint: Anxiety ED Provider: Ezekiel Poole Dx/Rx/DC Orders Clinical Impression: Anxiety, Hypertension Instructions: ED Anxiety Reaction Prescriptions: No Action ascorbic acid (vitamin C) 500 mg tablet 500 mg PO DAILY acetaminophen 500 mg tablet 500 - 1,000 mg PO TID-QID PRN (Reason: fever or pain) Qty: 60 0RF atenolol 25 mg tablet 25 mg PO QDAY Qty: 30 0RF loratadine 10 mg tablet 10 mg PO QDAY PRN (Reason: allergy symptoms) Qty: 30 0RF cholecalciferol (vitamin D3) 25 mcg (1,000 unit) capsule 1,000 unit PO QDAY Qty: 30 0RF ibuprofen 600 mg tablet 600 mg PO TID-QID PRN (Reason: pain) Qty: 30 0RF fluoxetine 20 mg capsule 20 mg PO DAILY atenolol 25 mg tablet 25 mg PO DAILY fluoxetine 20 mg capsule 20 mg PO DAILY loratadine 10 mg tablet 10 mg PO DAILY cholecalciferol (vitamin D3) 25 mcg (1,000 unit) capsule 25 mcg PO DAILY Primary Care Provider: Nora Robertson NP Referrals: Nora Robertson NP, [facility] [Primary Care Provider, Family Practice] - 5-7 Days Print Language: Lithuanian Disposition Disposition: Home, Self Care
--- OUTSIDE RECORDS SUMMARY | 2025-10-07 23:43 | XMS RPT_ITS | CCD ---
Author Organization [facility] Care Team Providers Care Knitting Tester Name Role Phone Cassius Kilpatrick Chi Primary Care Provider Dr. María Marion Primary Care Provider Dr. María Marion Referring Provider Dr. Matt Gill Attending Provider [phone] Vishal Ospina Attending Provider PRINCE Gerber Attending Provider [phone] PRINCE Ruth Attending Provider DO Shelia Steele Primary Care Provider DO Shelia Steele Referring Provider Ruperto SEAM PRESSER, SEAM PRESSER-C Sherry Attending Provider Kei SEAM PRESSER, SEAM PRESSER-C Payal Attending Provider Shelia Steele DO Primary Care Provider Shelia Steele DO Primary Care Provider Shelia Steele DO Primary Care Provider Queden LABORER DRIVER.STRAINER TENDER, Nora A Primary Care Provider Shelia Steele DO Primary Care Provider [phone] QUEDEN, NORA A Primary Care Unavailable QUEDEN, NORA A Primary Care Unavailable QUEDEN, NORA A Referring Unavailable QUEDEN, NORA A Primary Care Unavailable JULISSA SOTO Referring Unavailable QUEDEN, NORA A Primary Care Unavailable QUEDEN, NORA A Primary Care Unavailable JULISSA SOTO Attending Unavailable Dr. Edgar Doss DO Emergency Provider Queden SEAM PRESSER-C, Nora Primary Care Provider [phone] QUEDEN, NORA A Primary Care Unavailable QUEDEN, NORA A Referring Unavailable QUEDEN, NORA A Attending Unavailable QUEDEN, NORA A Primary Care Unavailable QUEDEN, NORA A Referring Unavailable QUEDEN, NORA A Attending Unavailable QUEDEN, NORA A Attending Unavailable QUEDEN, NORA A Primary Care Unavailable Edgar Doss Attending Unavailable Queden, Nora Primary Care Unavailable Queden SEAM PRESSER, Nora Primary Care Unavailable Viry Barnard Attending Unavailable Gregoria Ambrocio Admitting Unavailable Queden SEAM PRESSER, Nora Primary Care Unavailable Samaria Alvarado Attending Unavailable Max Foley Consulting Unavailable Gregoria Ambrocio Consulting Unavailable Baltazar Hoang Attending Unavailable Baltazar Hoang Referring Unavailable Queden SEAM PRESSER, Nora Primary Care Unavailable Queden SEAM PRESSER, Nora Primary Care Unavailable Max Foley Attending Unavailable Queden SEAM PRESSER, Nora Primary Care Unavailable Samaria Alvarado Attending Unavailable Gregoria Ambrocio Admitting Unavailable Max Foley Consulting Unavailable Gregoria Ambrocio Consulting Unavailable Samaria Alvarado Consulting Unavailable Gregoria Ambrocio Attending Unavailable Queden SEAM PRESSER, Nora Referring Unavailable Queden SEAM PRESSER, Nora Primary Care Unavailable Lukas Redman NP Attending Unavailable Queden SEAM PRESSER, Nora Primary Care Unavailable Allergies Allergy Classification Reported Allergen(s) Allergy Type Date of Onset Reaction(s) Facility (20 sources) Sulfonamides (Antibiotic); Translations: [SULFA (SULFONAMIDE ANTIBIOTICS)] Propensity to adverse reactions 7 [facility] (19 sources) atorvastatin; Translations: [ATORVASTATIN] Drug Allergy 2 Other: See Comments [facility] (6 sources) Sulfonamides (Antibiotic) Allergy to substance 2 Unknown [facility] (2 sources) Sulfonamides (Antibiotic) Drug allergy (disorder) 5 [facility] Repository (1 source) atorvastatin Drug Allergy 5 [facility] Repository Medications Current Medications Medication Drug Class(es) [...] Comment on above: Take 1 tablet by [facility] once daily. cephalexin 500 mg oral capsule [...] Comment on above: Take 1 capsule by [facility] twice a week. (ONE CAPSULE) FOR VITAMIN D DEFICIENCY Take 1 capsule by [facility] once daily. citalopram 10 mg oral tablet [...] on above: Take 1 capsule by [facility] every 8 hours. famotidine 40 mg oral [...] Comment on above: Take 1 tablet by [facility] daily with breakfast. fluticasone propionate 0.05 mg/actuat [...] Comment on above: Take 1 tablet by [facility] every 6 hours as needed for pain. [...] Comment on above: Take 1 capsule by [facility] once daily. Before morning meal phenylephrine hydrochloride [...] 025 Trop T High Sen Normal <=14 [facility] Comment on above: Result Comment: Canc elled via OM: Order cancelled - Patient discharged Performed By: #### L 499.0043 #### [facility] Laboratory [address] [place] [address], [place], [id number] Performed By: #### L 400.0001 #### [facility] [address] [place], [place], [address] Amphetamine detection with 1 000 ng/mL as cutoffOrdered By: Edgar Doss on 05-27-2025 Amphetamines Screen method >1000 ng/mL Ql (U) Negative < 200 ng/mL [facility] Anion gap in Serum or Plasma Ordered By: Edgar Doss on 05-27-2025 Anion gap [Moles/Vol] 16 mmol/L High - [facility] BUN/creatinine ratioOrdered By: Edgar Doss on 05-27-2025 Urea nitrogen/Creatinine [Mass ratio] 18.4 mg/mg 08-03 [facility] Basic Metabolic Profile (BMP )on 05-27-2025 BUN/CRE 18.4 RATIO Normal 08-03 [facility] Comment on above: Performed By: #### L 500.2500, L501.4021 #### [facility] Laboratory [address] [place], [address] Performed By: #### L 500.2500, L100.0500 #### [facility] [address] [place], [address] Calcium [Mass/Vol] 9.3 mg/dL Normal 7.6-11.0 [facility] Comment on above: Performed By: #### L 500.2499, L501.4021 #### [facility] [address] [place], [address] Performed By: #### L 500.2499, L100.0500 #### [facility] [address] [place], [address] Chloride [Moles/Vol] 101 mmol/L Normal 98-108 [facility] Comment on above: Performed By: #### L 500.2499, L501.4021 #### [facility] [address] [place], [address] Performed By: #### L 500.2499, L100.0500 #### [facility] [address] [place], [address] CO2 [Moles/Vol] 19.6 mmol/L Low 21.0-32.0 [facility] Comment on above: Performed By: #### L 500.2499, L501.4021 #### [facility] [address] [place], [address] Performed By: #### L 500.2500, L100.0500 #### [facility] [address] [place], [address] Creatinine [Mass/Vol] 0.80 mg/dL Normal 0.70-1.20 [facility] Comment on above: Performed By: #### L 500.2500, L501.4021 #### [facility] [address] [place], [address] Performed By: #### L 500.2500, L100.0500 #### [facility] [address] [place], [address] ECRCL 63.71 ml/min Normal 50-250 [facility] Comment on above: Performed By: #### L 500.2500, L501.4021 #### [facility] [address] [place], [address] Performed By: #### L 500.2500, L100.0500 #### [facility] Laboratory [address] [place], [address] GAP 16 High 5-15 [facility] Comment on above: Performed By: #### L 500.2499, L501.4021 #### [facility] [address] [place], [address] Performed By: #### L 500.2500, L100.0500 #### [facility] [address] [place], [address] GFR/1.73 sq M.predicted among non-blacks MDRD (S/P/Bld) [Vol rate/Area] 85 mL/min/{1.73_m2} Normal >60 [facility] Comment on above: Result Comment: mL/m in/1.73m2 CKD-EPI Creatinine Equation (2020) Performed By: #### L 500.2500, L501.4021 #### [facility] [address] [place], [address] Performed By: #### L 500.2500, L100.0500 #### [facility] [address] [place], [address] Glucose [Mass/Vol] 195 mg/dL High 70-99 [facility] Comment on above: Performed By: #### L 500.2500, L501.4021 #### [facility] [address] [place], [address] Performed By: #### L 500.2500, L100.0500 #### [facility] [address] [place], [address] Potassium [Moles/Vol] 3.4 mmol/L Normal 3.3-5.1 [facility] Comment on above: Performed By: #### L 500.2500, L501.4021 #### [facility] [address] [place], [address] Performed By: #### L 500.2500, L100.0500 #### [facility] [address] [place], [address] Sodium [Moles/Vol] 136 mmol/L Normal 133-145 [facility] Comment on above: Performed By: #### L 500.2500, L501.4021 #### [facility] [address] [place], [address] Performed By: #### L 500.2500, L100.0500 #### [facility] [address] [place], [address] Urea nitrogen [Mass/Vol] 15 mg/dL Normal 4-19 [facility] Comment on above: Performed By: #### L 500.2500, L501.4021 #### [facility] [address] [place], [address] Performed By: #### L 500.2500, L100.0500 #### [facility] [address] [place], [address] Bilirubin Test strip Ql (U)O rdered By: Edgar Doss on 05-27-2025 Bilirubin Ql (U) Negative Negative [facility] Carbon dioxide, total [Moles /volume] in Central venous bloodOrdered By: Edgar Doss on 05-27-2025 CO2 [Moles/Vol] 19.6 mmol/L Low 21.0-32.0 [facility] Chest 1 View (Portable)on Chest 1 View (Portable) [facility] Imaging Services [address] [place] [address] Chest 1 View (Portable) MR#: [id number] Acct: [id number] Name: SUHAS ABURTO Rep #: [id number] : 1965 F 59 From: Massimo Beth MD PCP: WESTON Pang Status: REG ER Study: Chest 1 View (Portable) Date of Exam: 05/27/25 Exam# [id number] Ordering Dr: Edgar Doss DO PROCEDURE: CHEST 1 VIEW (PORTABLE) 05/27/2025 REASON FOR EXAM: NEAR SYNCOPE TECHNIQUE: Frontal view of the chest. COMPARISON: None available. FINDINGS: Hardware: None. Heart: The heart size is normal. Lungs: The lungs are clear. Bones: The bones are unremarkable. RAD/Chest 1 View (Portable) IMPRESSION: No Acute Findings. Reading Location: [facility] CC: SEAM PRESSER-C Nora Robertson; Dr. Edgar Doss DO Network Applications Specialist: Signed Normal [facility] Chest 1 View (Portable) [facility] Imaging Services [address] [place] [address] Chest 1 View (Portable) MR#: [id number] Acct: [id number] Name: SUHAS ABURTO Rep #: [id number] : 1965 F 59 From: Massimo Beth MD PCP: WESTON Pang Status: DEP ER Study: Chest 1 View (Portable) Date of Exam: 05/27/25 Exam# [id number] Ordering Dr: Edgar Doss DO PROCEDURE: CHEST 1 VIEW (PORTABLE) 05/27/2025 REASON FOR EXAM: NEAR SYNCOPE TECHNIQUE: Frontal view of the chest. COMPARISON: None available. FINDINGS: Hardware: None. Heart: The heart size is normal. Lungs: The lungs are clear. Bones: The bones are unremarkable. RAD/Chest 1 View (Portable) IMPRESSION: No Acute Findings. Reading Location: [facility] CC: SEAM PRESSER-C Nora Robertson; Dr. Edgar Doss DO Network Applications Specialist: Signed Normal [facility] Chloride assayOrdered By: Markus Doss on 05-27-2025 Chloride [Moles/Vol] 101 mmol/L 98-108 [facility] Emergency Department Summary on 05-27-2025 Emergency Department Summary [facility] Medical Records Department [address] [place] [address] Emergency Department Summary 05/27/25 MR#: [id number] Acct: [id number] Name: SUHAS ABURTO Rep #: [id number] : 1965 59 From: Edgar Lima PCP: WESTON Pang Status:DEP ER Location: ED HPI History of Present Illness Chief Complaint: Dizziness Informant: patient and family Narrative Narrative: Presents to the ED by EMS from work. Patient home to [employer] [place], daughter currently present. She reports she [...] 197/91 p (more content not included)... Normal [facility] Emergency Department Summary [facility] Medical Records Department [address] [place] [address] Emergency Department Summary 05/27/25 MR#: [id number] Acct: [id number] Name: SUHAS ABURTO Rep #: [id number] : 1965 59 From: Edgar Lima PCP: WESTON Pang Status:DEP ER Location: ED HPI History of Present Illness Chief Complaint: Dizziness Informant: patient and family Narrative Narrative: Presents to the ED by EMS from work. Patient home to [employer], daughter currently present. She reports she was [...] 197/91 p (more content not included)... Normal [facility] Glomerular filtration rate ( GFR) estimation/1.73 sq m using serum, plasma, or whole bOrdered By: Edgar Doss on 05-27-2025 GFR/1.73 sq M.predicted among non-blacks MDRD (S/P/Bld) [Vol rate/Area] 85 mL/min/{1.73_m2} >60 [facility] Comment on above: mL/min/1.73m2 CKD-EP I Creatinine Equation (2020) Ketones Test strip Ql (U)Ord ered By: Edgar Doss on 05-27-2025 Ketones Ql (U) Negative Negative [facility] L501.4021on 05-27-2025 Trop T High Sen 8 ng/L Normal <=14 [facility] Comment on above: Performed By: #### L 500.2500, L501.4021 #### [facility] Laboratory [facility] [place], [address] Performed By: #### L 400.0001 #### [facility] [address] [place], [address] Microscopic analysis of urin e for red blood cells (RBC)Ordered By: Edgar Doss on 05-27-2025 Microscopic analysis of urine for red blood cells (RBC) 0-5 SEEN /hpf 0-5 [facility] Mucus LM Ql (Urine sed)Order ed By: Edgar Doss on 05-27-2025 Mucus Ql (Urine sed) 0 SEEN /hpf [facility] Nitrite Test strip Ql (U)Ord ered By: Edgar Doss on 05-27-2025 Nitrite Ql (U) Negative Negative [facility] No Panel InformationOrdered By: Edgar Doss on 05-27-2025 Urine Buprenorphine Qualitative Negative < 200 ng/mL [facility] Urine Oxycodone Screen Negative < 100 ng/mL [facility] Potassium measurement (mass/ volume)Ordered By: Edgar Doss on 05-27-2025 Potassium (Unsp spec) [Mass/Vol] 3.4 mmol/L 3.3-5.1 [facility] Protein Test strip Ql (U)Ord ered By: Edgar Doss on 05-27-2025 Protein Ql (U) 30 mg/dl High Negative [facility] Quantitative urine opiates m easurementOrdered By: Edgra Doss on 05-27-2025 Opiates Ql (U) Negative < 300 ng/mL [facility] Screening urine fentanyl sathya surementOrdered By: Edgar Doss on 05-27-2025 fentaNYL Screen Ql (U) Negative [facility] Serum creatinine measurement (mass/volume)Ordered By: Edgar Doss on 05-27-2025 Creatinine [Mass/Vol] 0.80 mg/dL 0.70-1.20 [facility] Serum glucose measurement (m ass/volume)Ordered By: Edgar Doss on 05-27-2025 Glucose [Mass/Vol] 195 mg/dL High 70-99 [facility] Serum or plasma calcium pedro urement (mass/volume)Ordered By: Edgar Doss on 05-27-2025 Calcium [Mass/Vol] 9.3 mg/dL 7.6-11.0 [facility] Serum or plasma urea nitroge n measurement (mass/volume)Ordered By: Edgar Doss on 05-27-2025 Urea nitrogen [Mass/Vol] 15 mg/dL 4-19 [facility] Sodium levelOrdered By: Edgar Doss on 05-27-2025 Sodium [Moles/Vol] 136 mmol/L 133-145 [facility] Squamous epithelial cells de tection in urine sediment by light microscopyOrdered By: Edgar Doss on 05-27-2025 Epithelial cells.squamous LM Ql (Urine sed) 5-10 SEEN /hpf 5-10 [facility] Troponin T HS 2 HRon 025 Trop T High Sen 13 ng/L Normal <=14 [facility] Comment on above: Performed By: #### L 499.0042 #### [facility] Laboratory [address] [place] [address] Performed By: #### L 400.0001 #### [facility] [address] [place] [address] Troponin T.cardiac [Mass/vol ume] in Serum or Plasma by High sensitivity methodOrdered By: Edgar Doss on 05-27-2025 Troponin T.cardiac High sensitivity method [Mass/Vol] 13 ng/L <14 [facility] Troponin T.cardiac High sensitivity method [Mass/Vol] 8 ng/L <14 [facility] Urinalysis, Completeon 05-27 EPI,SQUAMOUS 5-10 SEEN Normal 5-10 [facility] Comment on above: Order Comment: CLEAN CATCH Performed By: #### L 400.0001 #### [facility] Laboratory [address] [facility] [address] RBC 0-5 SEEN Normal 0-5 [facility] Comment on above: Order Comment: CLEAN CATCH Performed By: #### L 400.0001 #### [facility] Laboratory [address] [facility] [address] YEAST RARE Normal None Seen [facility] Comment on above: Order Comment: CLEAN CATCH Performed By: #### L 400.0001 #### [facility] Laboratory [address] [place], [address] WBC 5-10 SEEN Normal 0-5 [facility] Comment on above: Order Comment: CLEAN CATCH Performed By: #### L 400.0001 #### [facility] [address] [place], [address] BACTERIA 0 SEEN Normal None Seen [facility] Comment on above: Order Comment: CLEAN CATCH Performed By: #### L 400.0001 #### [facility] [address] [place], [address] Mucus Ql (Urine sed) 0 SEEN Normal [facility] Comment on above: Order Comment: CLEAN CATCH Performed By: #### L 400.0001 #### [facility] [address] [place], [address] Urine Drug Screen (VISTA)on 05-27-2025 AMPHETAMINES Negative Normal <1000 ng/mL [facility] Comment on above: Performed By: #### L 505.5000 #### [facility] Laboratory [address] [place], [address] Performed By: #### L 500.2500, L100.0500 #### [facility] [address] [place], [address] BARBITIURATES Negative Normal < 200 ng/mL [facility] Comment on above: Performed By: #### L 505.5000 #### [facility] [address] [place], [address] Performed By: #### L 500.2500, L100.0500 #### [facility] [address] [place], [address] BENZODIAZIPINE Negative Normal < 200 ng/mL [facility] Comment on above: Performed By: #### L 505.5000 #### [facility] [address] [place], [address] Performed By: #### L 500.2500, L100.0500 #### [facility] [address] [place], [address] BUP Ur Drug Scr Negative Normal < 200 ng/mL [facility] Comment on above: Performed By: #### L 505.5000 #### [facility] [address] [place], [address] Performed By: #### L 500.2500, L100.0500 #### [facility] [address] [place], [address] COCAINE Negative Normal < 300 ng/mL [facility] Comment on above: Performed By: #### L 505.5000 #### [facility] [address] [place], [address] Performed By: #### L 500.2500, L100.0500 #### [facility] [address] [place], [address] Fentanyl Negative Normal [facility] Comment on above: Performed By: #### L 505.5000 #### [facility] [address] [place], [address] Performed By: #### L 500.2500, L100.0500 #### [facility] [address] [place], [address] METHADONE Negative Normal < 300 ng/mL [facility] Comment on above: Performed By: #### L 505.5000 #### [facility] [address] [place], [address] Performed By: #### L 500.2500, L100.0500 #### [facility] [address] [place], [address] OPIATES Negative Normal < 300 ng/mL [facility] Comment on above: Performed By: #### L 505.5000 #### [facility] [address] [place], [address] Performed By: #### L 500.2500, L100.0500 #### [facility] [address] [place], [address] OXYCODONE Negative Normal < 100 ng/mL [facility] Comment on above: Performed By: #### L 505.5000 #### [facility] [address] [place], [address] Performed By: #### L 500.2500, L100.0500 #### [facility] [address] [place], [address] PCP Negative Normal < 25 ng/mL [facility] Comment on above: Performed By: #### L 505.5000 #### [facility] [address] [place], [address] Performed By: #### L 500.2500, L100.0500 #### [facility] [address] [place], [address] THC Positive Normal < 50 ng/mL [facility] Comment on above: Result Comment: If c onfirmation testing is needed, a separate order will be required to send out testing to the reference laboratory. Performed By: #### L 505.5000 #### [facility] Laboratory [facility] [place], [address] Performed By: #### L 500.2500, L100.0500 #### [facility] [address] [place], [address] Urine benzodiazepine levelOr dered By: Edgar Doss on 05-27-2025 Benzodiazepines Ql (U) Negative < 200 ng/mL [facility] Urine clarityOrdered By: Yvan Doss on 05-27-2025 Clarity (U) Cloudy Clear [facility] Urine cocaine levelOrdered B y: Edgar Doss on 05-27-2025 Cocaine Ql (U) Negative < 300 ng/mL [facility] Urine color determinationOrd ered By: Edgar Doss on 05-27-2025 Color (U) Straw Yellow [facility] Urine lbdzc-1-gsprmrrachxdyu abinol (THC) measurementOrdered By: Edgar Doss on 05-27-2025 Cannabinoids Screen Ql (U) Positive < 50 ng/mL [facility] Comment on above: If confirmation test ing is needed, a separate order will be required to send out testing to the reference laboratory. Urine glucose detectionOrder ed By: Edgar Doss on 05-27-2025 Glucose Ql (U) Normal mg/dl Normal [facility] Urine leukocyte esterase det ection by dipstickOrdered By: Edgar Doss on 05-27-2025 Leukocyte esterase Test strip Ql (U) 25 /ul High Negative [facility] Urine pHOrdered By: Edgar Doss on 05-27-2025 pH (U) 5.0 [pH] 5.0 - 8.0 [facility] Urine phencyclidine (PCP) de tectionOrdered By: Edgar Doss on 05-27-2025 Phencyclidine Ql (U) Negative < 25 ng/mL [facility] Urine sediment bacteria coun t by microscopy (number/high power field)Ordered By: Edgar Doss on 05-27-2025 Bacteria LM.HPF (Urine sed) [#/Area] 0 /[HPF] None Seen [facility] Urine sediment yeast count b y microscopy (number/high powered field)Ordered By: Edgar Doss on 05-27-2025 Yeast LM.HPF (Urine sed) [#/Area] RARE /hpf None Seen [facility] Urine specific gravity measu rementOrdered By: Edgar Doss on 05-27-2025 Specific gravity (U) [Rel density] 1.020 1.002-1.030 [facility] Urine urobilinogen measureme ntOrdered By: Edgar Doss on 05-27-2025 Urobilinogen Ql (U) Normal mg/dl Normal [facility] White blood cell countOrdere d By: Edgar Doss on 05-27-2025 White blood cell count 5-10 SEEN /hpf 0-5 [facility] CNPNon 03-19-2025 CNPN Telephone (SPAGBA) SUHAS ABURTO ([id number]) 1965 F Date Time Provider Department 03/19/25 JESSICA JUNE During your visit today, we recorded the following information about you: Shawanda Dai 03/19/2025 2:28 PM Signed LM re: scheduling EM[facility] Upper Left Shawanda Dai Allergies As of Date: 03/19/2025 Noted Allergy Reaction ATORVASTATIN 03/31/2024 14 - Other: See Comments SULFA (SULFONAMIDE ANTIBIOTICS) 10/19/2006 Comments: itching, rash Date Reviewed: 03/16/2025 Reviewed by: Nora Robertson APRN.STRAINER TENDER - Fully Assessed Reason for Visit: Appointment [...] of func*10/04/2010 11/16/2015 ASCUS on Pap smear [[id number]] 08/23/2011 Blood in stool [K92.1] 08/31/2011 03/24/2014 Anemia, unspecified [D64.9] 08/31/2011 06/28/2016 Iron deficiency anemia [D50.9] 09/28/2011 Neck pain [M54.2] 01/23/2013 06/28/2016 Cervicalgia [M54.2] 11/06/2013 Adjustment disorder with mixed anxiety and depr*12/29/2013 Psychic factors associated with diseases classi*12/29/2013 Sciatica [M54.30] 02/23/2015 Tension-type headache, not intractable [G44.209]01/27/2016 Abnormal mammogram [R92.8] 07/06/2017 Encounter Status:Closed by SHAWANDA DAI on 03/19/25 [facility] Nidhi 03-16-2025 [facility] SUHAS ABURTO ([id number]) 1965 F Date Time Provider Department 03/16/25 CLARA MARIEE AGSPINE2 During your visit today, we recorded the following information about you: Ly Holt 03/16/2025 3:21 PM Signed Left message attempting to schedule Allergies As of Date: 03/16/2025 Noted Allergy Reaction ATORVASTATIN 03/31/2024 14 - Other: See Comments SULFA (SULFONAMIDE ANTIBIOTICS) 10/19/2006 Comments: itching, rash Date Reviewed: 02/24/2025 Reviewed by: Nora Robertson APRN.STRAINER TENDER - Fully Assessed Reason for Visit: Appointment [...] of func*10/04/2010 11/16/2015 ASCUS on Pap smear [[id number]] 08/23/2011 Blood in stool [K92.1] 08/31/2011 03/24/2014 Anemia, unspecified [D64.9] 08/31/2011 06/28/2016 Iron deficiency anemia [D50.9] 09/28/2011 Neck pain [M54.2] 01/23/2013 06/28/2016 Cervicalgia [M54.2] 11/06/2013 Adjustment disorder with mixed anxiety and depr*12/29/2013 Psychic factors associated with diseases classi*12/29/2013 Sciatica [M54.30] 02/23/2015 Tension-type headache, not intractable [G44.209]01/27/2016 Abnormal mammogram [R92.8] 07/06/2017 Encounter Status:Closed by YL HOLT on 03/16/25 Normal [facility] Comprehensive metabolic 2000 panelon 02-26-2025 Albumin [Mass/Vol] 4 g/dL 3.9 - 4.9 g/dL [facility] ALP [Catalytic activity/Vol] 75 U/L 34 - 123 U/L [facility] ALT [Catalytic activity/Vol] 18 U/L 7 - 38 U/L [facility] Anion gap [Moles/Vol] 11 mmol/L 8 - 15 mmol/L [facility] AST [Catalytic activity/Vol] 26 U/L 13 - 35 U/L [facility] Bilirubin [Mass/Vol] 0.3 mg/dL 0.2 - 1 .3 mg/dL [facility] Calcium [Mass/Vol] 9.3 mg/dL 8.5 - 10. 2 mg/dL [facility] Chloride [Moles/Vol] 104 mmol/L 98 - 10 7 mmol/L [facility] CO2 [Moles/Vol] 23 mmol/L 22 - 30 mmol/L [facility] Creatinine [Mass/Vol] 0.81 mg/dL 0.58 - 0.96 mg/dL [facility] GFR/1.73 sq M.predicted among non-blacks MDRD (S/P/Bld) [Vol rate/Area] 84 mL/min/{1.73_m2} - PINF [facility] Comment on above: Estimated Glomerular Filtration Rate [...] [Mass/Vol] 88 mg/dL 74 - 99 mg/dL [facility] Comment on above: The [place] Diabete s Association (ADA) provides guidance for [...] Standards of Medical Care in Diabetes 2016, [place] Diabetes Association. Diabetes Care. 2016.39(Suppl 1). Interpretation and review of laboratory results Normal [facility] Potassium [Moles/Vol] 4.5 mmol/L 3.7 - 5.1 mmol/L [facility] Protein [Mass/Vol] 7.3 g/dL 6.3 - 8.0 g/dL [facility] Sodium [Moles/Vol] 138 mmol/L 136 - 144 mmol/L [facility] Urea nitrogen [Mass/Vol] 14 mg/dL 7 - 21 mg/d L [facility] Lipid 1996 panelon 5 Cholesterol [Mass/Vol] 220 mg/dL High NINF - 200 mg/dL [facility] Comment on above: <200 mg/dL, Desirabl e 200-239 mg/dL, Borderline high >239 mg/dL, High Cholesterol in HDL [Mass/Vol] 42 mg/dL 39 - PINF mg/dL [facility] Comment on above: 40-59 mg/dL, Accepta ble >59 mg/dL, High: Negative risk factor for coronary heart disease <40 mg/dL, Low: Positive risk factor for coronary heart disease Cholesterol in LDL [Mass/Vol] 147 mg/dL High NINF - 100 mg/dL [facility] Comment on above: <100 mg/dL, Optimal 100-129 mg/dL, Near optimal/above optimal 130-159 mg/dL, Borderline high 160-189 mg/dL, High >189 mg/dL, Very high Secondary prevention optimal LDL Cholesterol levels are recommended to be <70 mg/dL LDL cholesterol is calculated using the Beyer-NIH equation. Cholesterol in LDL/Cholesterol in HDL [Mass ratio] 3.5 {ratio} High NINF - 2.54 [facility] Comment on above: Reference: 1. National Cholesterol Education Program ATP III Guideline At-A-Glance Quick Desk Reference: National Heart, Lung, and Blood [place]. National Institutes of Health. 2001: NIH Publication No. 01-3305. 2. An International Atherosclerosis Society position paper: global recommendations for the management of dyslipidemia: executive summary, Atherosclerosis. 2014: 232(2):410-413. Cholesterol in VLDL [Mass/Vol] 31 mg/dL High NINF - 30 mg/dL [facility] Cholesterol non HDL [Mass/Vol] 178 mg/dL High NINF - 130 mg/dL [facility] Comment on above: <130 mg/dL, Optimal 130-159 mg/dL, Near optimal/above optimal 160-189 mg/dL, Borderline high 190-219 mg/dL, High >219 mg/dL, Very high Secondary prevention optimal non HDL Cholesterol levels are recommended to be <100 mg/dL Cholesterol.total/Choles terol in HDL [Mass ratio] 5.24 {ratio} High NINF - 5.10 [facility] Fasting Time 12 hrs [facility] Interpretation and review of laboratory results Abnormal [facility] Triglyceride [Mass/Vol] 169 mg/dL High NINF - 150 mg/dL [facility] Comment on above: <150 mg/dL, Normal 150-199 mg/dL, Borderline high 200-499 mg/dL, High >499 mg/dL, Very high No Panel Informationon 02-26 Interpretation and review of laboratory results Normal [facility] TSH W/REFLEX FT4on TSH Qn 3.7 m[IU]/L [facility] VITAMIN B12on 02-26-2025 Cobalamin (Vitamin B12) [Mass/Vol] 412 pg/mL 232 - 1245 pg/mL [facility] 25(OH)D3 SerPl-mCncon 2024 25-hydroxyvitamin D3 [Mass/Vol] 45.3 ng/mL Normal 31.0-80.0 [facility] Comment on above: Order Comment: Speci men Type: BLOOD SPECIMEN Ordering Facility: [facility] Address: [address] [place] [address] Performed By: #### 1 989-3 #### [facility] CLIA [id number] [address] [place] [address] [place] 25-hydroxyvitamin D3 [Mass/V ol]on 02-25-2025 Interpretation and review of laboratory results Normal [facility] CBC W Auto Differential pane l (Bld)on 02-25-2025 Basophils (Bld) [#/Vol] 0.08 10*3/uL [facility] Basophils/100 WBC (Bld) 0.9 % C [facility] Differential cell count method Nom (Bld) Auto [facility] Eosinophils (Bld) [#/Vol] 0.46 10*3/uL High [facility] Eosinophils/100 WBC (Bld) 5.2 % [facility] Erythrocyte distribution width (RBC) [Ratio] 14 % 11.5 - 15.0 % [facility] Hematocrit (Bld) [Volume fraction] 36.8 % 36.0 - 46.0 % [facility] Hemoglobin (Bld) [Mass/Vol] 11.4 g/dL Low 11.5 - 15.5 g/dL [facility] Immature granulocytes (Bld) [#/Vol] 0.06 10*3/uL [facility] Immature granulocytes/100 WBC (Bld) 0.7 % [facility] Interpretation and review of laboratory results Abnormal [facility] Lymphocytes (Bld) [#/Vol] 3.39 10*3/uL [facility] Lymphocytes/100 WBC (Bld) 38.2 % [facility] MCH (RBC) [Entitic mass] 26.7 pg 26. 0 - 34.0 pg [facility] MCHC (RBC) [Mass/Vol] 31 g/dL 30.5 - 36.0 g/dL [facility] MCV (RBC) [Entitic vol] 86.2 fL 80.0 - 100.0 fL [facility] Monocytes (Bld) [#/Vol] 0.64 10*3/uL [facility] Monocytes/100 WBC (Bld) 7.2 % C [facility] Neutrophils (Bld) [#/Vol] 4.25 10*3/uL [facility] Neutrophils/100 WBC (Bld) 47.8 % [facility] Nucleated RBC (Bld) [#/Vol] [facility] Nucleated RBC/100 WBC (Bld) [Ratio] 0 % /100 WBC [facility] Platelet mean volume (Bld) [Entitic vol] 9.5 fL 9.0 - 12.7 fL [facility] Platelets (Bld) [#/Vol] 397 10*3/uL [facility] RBC (Bld) [#/Vol] 4.27 10*6/uL 3.90 - 5.2 0 m/uL [facility] WBC (Bld) [#/Vol] 8.88 10*3/uL [facility] Basophils (Bld) [#/Vol] 0.08 10*3/uL Normal <0.11 [facility] Comment on above: Order Comment: Speci men Type: BLOOD SPECIMEN Ordering Facility: [facility] Address: [address] [place] [address] Performed By: #### 1 989-3 #### [facility] CLIA [id number] [address] [place] [address] [place] Basophils/100 WBC (Bld) 0.9 % Normal [facility] Comment on above: Order Comment: Speci men Type: BLOOD SPECIMEN Ordering Facility: [facility] Address: [address] [place] [address] Performed By: #### 1 989-3 #### [facility] CLIA [id number] [address] [place] [address] [place] Differential cell count method Nom (Bld) Auto Normal [facility] Comment on above: Order Comment: Speci men Type: BLOOD SPECIMEN Ordering Facility: [facility] Address: [address] [place] [address] Performed By: #### 1 989-3 #### [facility] CLIA [id number] [address] [place] [address] [place] Eosinophils (Bld) [#/Vol] 0.46 10*3/uL High <0.46 [facility] Comment on above: Order Comment: Speci men Type: BLOOD SPECIMEN Ordering Facility: [facility] Address: [address] [place] [address] Performed By: #### 1 989-3 #### [facility] CLIA [id number] [address] [place] [address] [place] Eosinophils/100 WBC (Bld) 5.2 % Normal [facility] Comment on above: Order Comment: Speci men Type: BLOOD SPECIMEN Ordering Facility: [facility] Address: [address] [place] [address] Performed By: #### 1 989-3 #### [facility] CLIA [id number] [address] [place] [address] [place] Erythrocyte distribution width (RBC) [Ratio] 14.0 % Normal 11.5-15.0 [facility] Comment on above: Order Comment: Speci men Type: BLOOD SPECIMEN Ordering Facility: [facility] Address: [address] [place] [address] Performed By: #### 1 989-3 #### [facility] CLIA [id number] [address] [place] [address] [place] Hematocrit (Bld) [Volume fraction] 36.8 % Normal 36.0-46.0 [facility] Comment on above: Order Comment: Speci men Type: BLOOD SPECIMEN Ordering Facility: [facility] Address: [address] [place] [address] Performed By: #### 1 989-3 #### [facility] CLIA [id number] [address] [place] [address] [place] Hemoglobin (Bld) [Mass/Vol] 11.4 g/dL Low 11.5-15.5 [facility] Comment on above: Order Comment: Speci men Type: BLOOD SPECIMEN Ordering Facility: [facility] Address: [address] [place] [address] Performed By: #### 1 989-3 #### [facility] CLIA [id number] [address] [place] [address] [place] Immature granulocytes (Bld) [#/Vol] 0.06 10*3/uL Normal <0.10 [facility] Comment on above: Order Comment: Speci men Type: BLOOD SPECIMEN Ordering Facility: [facility] Address: [address] [place] [address] Performed By: #### 1 989-3 #### [facility] CLIA [id number] [address] [place] [address] [place] Immature granulocytes/100 WBC (Bld) 0.7 % Normal [facility] Comment on above: Order Comment: Speci men Type: BLOOD SPECIMEN Ordering Facility: [facility] Address: [address] [place] [address] Performed By: #### 1 989-3 #### [facility] CLIA [id number] [address] [place] [address] [place] Lymphocytes (Bld) [#/Vol] 3.39 10*3/uL Normal 1.00-4.00 [facility] Comment on above: Order Comment: Speci men Type: BLOOD SPECIMEN Ordering Facility: [facility] Address: [address] [place] [address] Performed By: #### 1 989-3 #### [facility] CLIA [id number] [address] [place] [address] [place] Lymphocytes/100 WBC (Bld) 38.2 % Normal [facility] Comment on above: Order Comment: Speci men Type: BLOOD SPECIMEN Ordering Facility: [facility] Address: [address] [place] [address] Performed By: #### 1 989-3 #### [facility] CLIA [id number] [address] [place] [address] [place] MCH (RBC) [Entitic mass] 26.7 pg Normal 26.0-34.0 [facility] Comment on above: Order Comment: Speci men Type: BLOOD SPECIMEN Ordering Facility: [facility] Address: [address] [place] [address] Performed By: #### 1 989-3 #### [facility] CLIA [id number] [address] [place] [address] [place] MCHC (RBC) [Mass/Vol] 31.0 g/dL Normal 30.5-36.0 [facility] Comment on above: Order Comment: Speci men Type: BLOOD SPECIMEN Ordering Facility: [facility] Address: [address] [place] [address] Performed By: #### 1 989-3 #### [facility] CLIA [id number] [address] [place] [address] [place] MCV (RBC) [Entitic vol] 86.2 fL Normal 80.0-100.0 [facility] Comment on above: Order Comment: Speci men Type: BLOOD SPECIMEN Ordering Facility: [facility] Address: [address] [place] [address] Performed By: #### 1 989-3 #### [facility] CLIA [id number] [address] [place] [address] [place] Monocytes (Bld) [#/Vol] 0.64 10*3/uL Normal <0.87 [facility] Comment on above: Order Comment: Speci men Type: BLOOD SPECIMEN Ordering Facility: [facility] Address: [address] [place] [address] Performed By: #### 1 989-3 #### [facility] CLIA [id number] [address] [place] [address] [place] Monocytes/100 WBC (Bld) 7.2 % Normal [facility] Comment on above: Order Comment: Speci men Type: BLOOD SPECIMEN Ordering Facility: [facility] Address: [address] [place] [address] Performed By: #### 1 989-3 #### [facility] CLIA [id number] [address] [place] [address] [place] Neutrophils (Bld) [#/Vol] 4.25 10*3/uL Normal 1.45-7.50 [facility] Comment on above: Order Comment: Speci men Type: BLOOD SPECIMEN Ordering Facility: [facility] Address: [address] [place] [address] Performed By: #### 1 989-3 #### [facility] CLIA [id number] [address] [place] [address] [place] Neutrophils/100 WBC (Bld) 47.8 % Normal [facility] Comment on above: Order Comment: Speci men Type: BLOOD SPECIMEN Ordering Facility: [facility] Address: [address] [place] [address] Performed By: #### 1 989-3 #### [facility] CLIA [id number] [address] [place] [address] [place] Nucleated RBC (Bld) [#/Vol] 10*3/uL Normal <0.01 [facility] Comment on above: Order Comment: Speci men Type: BLOOD SPECIMEN Ordering Facility: [facility] Address: [address] [place] [address] Performed By: #### 1 989-3 #### [facility] CLIA [id number] [address] [place] [address] [place] Nucleated RBC/100 WBC (Bld) [Ratio] 0.0 /100 WBC Normal [facility] Comment on above: Order Comment: Speci men Type: BLOOD SPECIMEN Ordering Facility: [facility] Address: [address] [place] [address] Performed By: #### 1 989-3 #### [facility] CLIA [id number] [address] [place] [address] [place] Platelet mean volume (Bld) [Entitic vol] 9.5 fL Normal 9.0-12.7 [facility] Comment on above: Order Comment: Speci men Type: BLOOD SPECIMEN Ordering Facility: [facility] Address: [address] [place] [address] Performed By: #### 1 989-3 #### [facility] CLIA [id number] [address] [place] [address] [place] Platelets (Bld) [#/Vol] 397 10*3/uL Normal 150-400 [facility] Comment on above: Order Comment: Speci men Type: BLOOD SPECIMEN Ordering Facility: [facility] Address: [address] [place] [address] Performed By: #### 1 989-3 #### [facility] CLIA [id number] [address] [place] [address] [place] RBC (Bld) [#/Vol] 4.27 10*6/uL Normal 3.90-5.20 [facility] Comment on above: Order Comment: Speci men Type: BLOOD SPECIMEN Ordering Facility: [facility] Address: [address] [place] [address] Performed By: #### 1 989-3 #### [facility] CLIA [id number] [address] [place] [address] [place] WBC (Bld) [#/Vol] 8.88 10*3/uL Normal 3.70-11.00 [facility] Comment on above: Order Comment: Speci men Type: BLOOD SPECIMEN Ordering Facility: [facility] Address: [address] [place] [address] Performed By: #### 1 989-3 #### [facility] CLIA [id number] [address] [place] [address] [place] Comprehensive metabolic 2000 panelon 02-25-2025 Albumin [Mass/Vol] 4.0 g/dL Normal 3.9-4.9 [facility] Comment on above: Order Comment: Speci men Type: BLOOD SPECIMEN Ordering Facility: [facility] Address: [address] [place] [address] Performed By: #### T BUTCH, 83276-4, , 2132-06 #### [facility] CLIA [id number] [address] [place] [address] [place] ALP [Catalytic activity/Vol] 75 U/L Normal 34-123 [facility] Comment on above: Order Comment: Speci men Type: BLOOD SPECIMEN Ordering Facility: [facility] Address: [address] [place] [address] Performed By: #### T BUTCH, 75513-6, , 2132-06 #### [facility] CLIA [id number] [address] [place] [address] [place] ALT [Catalytic activity/Vol] 18 U/L Normal 7-38 [facility] Comment on above: Order Comment: Speci men Type: BLOOD SPECIMEN Ordering Facility: [facility] Address: [address] [place] [address] Performed By: #### Say RAE, 02984-6, , 2132-06 #### [facility] CLIA [id number] [address] [place], [place] [address] [place] Anion gap [Moles/Vol] 11 mmol/L Normal 8-15 [facility] Comment on above: Order Comment: Speci men Type: BLOOD SPECIMEN Ordering Facility: [facility] Address: [address] [place] [address] Performed By: #### T BUTCH, 59583-3, , 2132-06 #### [facility] CLIA [id number] [address] [place], [place] [address] [place] AST [Catalytic activity/Vol] 26 U/L Normal 13-35 [facility] Comment on above: Order Comment: Speci men Type: BLOOD SPECIMEN Ordering Facility: [facility] Address: [address] [place] [address] Performed By: #### T BUTCH, 38103-1, , 2132-06 #### [facility] CLIA [id number] [address] [place] [address] [place] Bilirubin [Mass/Vol] 0.3 mg/dL Normal 0.2-1.3 [facility] Comment on above: Order Comment: Speci men Type: BLOOD SPECIMEN Ordering Facility: [facility] Address: [address] [place] [address] Performed By: #### T BUTCH, 41101-6, , 2132-06 #### [facility] CLIA [id number] [address] [place] [address] [place] Calcium [Mass/Vol] 9.3 mg/dL Normal 8.5-10.2 [facility] Comment on above: Order Comment: Speci men Type: BLOOD SPECIMEN Ordering Facility: [facility] Address: [address] [place] [address] Performed By: #### T BUTCH, 97927-6, , 2132-06 #### [facility] CLIA [id number] [address] [place], [place] [address] [place] Chloride [Moles/Vol] 104 mmol/L Normal 98-107 [facility] Comment on above: Order Comment: Speci men Type: BLOOD SPECIMEN Ordering Facility: [facility] Address: [address] [place] [address] Performed By: #### T BUTCH, 27454-3, , 2132-06 #### [facility] CLIA [id number] [address] [place], [place] [address] [place] CO2 [Moles/Vol] 23 mmol/L Normal 22-30 [facility] Comment on above: Order Comment: Speci men Type: BLOOD SPECIMEN Ordering Facility: [facility] Address: [address] [place], [place] [address] Performed By: #### T BUTCH, 93818-7, , 2132-06 #### [facility] CLIA [id number] [address] [place] [address] [place] Creatinine [Mass/Vol] 0.81 mg/dL Normal 0.58-0.96 [facility] Comment on above: Order Comment: Speci men Type: BLOOD SPECIMEN Ordering Facility: [facility] Address: [address] [place], [place] [address] Performed By: #### T BUTCH, 21240-6, , 2132-06 #### [facility] CLIA [id number] [address] [place] [address] [place] Creatinine and Glomerular filtration rate.predicted panel (S/P/Bld) 84 mL/min/1.73m??? Normal >=60 [facility] Comment on above: Order Comment: Avery luevano Type: BLOOD SPECIMEN Ordering Facility: [facility] Address: [address] [place] [address] Result Comment: Violet mated Glomerular Filtration Rate [...] reflect actual GFR. Performed By: #### T [facility], 37105-8, , 2132-06 #### [facility] CLIA [id number] [address] [place] [address] [place] Glucose [Mass/Vol] 88 mg/dL Normal 74-99 [facility] Comment on above: Order Comment: Avery luveano Type: BLOOD SPECIMEN Ordering Facility: [facility] Address: [address] [place] [address] Result Comment: The [place] [employer] (ADA) provides guidance for cutoff [...] Standards of Medical Care in Diabetes 2016, [place] [employer]. Diabetes Care. 2016.39(Suppl 1). Performed By: #### T [facility], 71313-9, , 2132-06 #### [facility] CLIA [id number] [address] [place] [place], [place] [id number] [place] Potassium [Moles/Vol] 4.5 mmol/L Normal 3.7-5.1 [facility] Comment on above: Order Comment: Speci men Type: BLOOD SPECIMEN Ordering Facility: [facility] Address: [address] [place] [address] Performed By: #### T BUTCH, 44051-2, , 2132-06 #### [facility] CLIA [id number] [address] [place] [address] [place] Protein [Mass/Vol] 7.3 g/dL Normal 6.3-8.0 [facility] Comment on above: Order Comment: Speci men Type: BLOOD SPECIMEN Ordering Facility: [facility] Address: [address] [place] [address] Performed By: #### T BUTCH, 65644-0, , 2132-06 #### [facility] CLIA [id number] [address] [place], [place] [address] [place] Sodium [Moles/Vol] 138 mmol/L Normal 136-144 [facility] Comment on above: Order Comment: Speci men Type: BLOOD SPECIMEN Ordering Facility: [facility] Address: [address] [place] [address] Performed By: #### T BUTCH, 92070-8, , 2132-06 #### [facility] CLIA [id number] [address] [place], [place] [address] [place] Urea nitrogen [Mass/Vol] 14 mg/dL Normal 7-21 [facility] Comment on above: Order Comment: Speci men Type: BLOOD SPECIMEN Ordering Facility: [facility] Address: [address] [place] [address] Performed By: #### T BUTCH, 72974-5, , 2132-06 #### [facility] CLIA [id number] [address] [place] [address] [place] HbA1c (Bld)on 02-25-2025 Average glucose Estimated from glycated hemoglobin (Bld) [Mass/Vol] 120 mg/dL [facility] Comment on above: eAG: (Estimated aver age glucose) is a calculated value from HgbA1c and is account manager sales representative of the average blood glucose level in the last 2-3 month period. HbA1c (Bld) [Mass fraction] 5.8 % High 4.3 - 5.6 % [facility] Comment on above: [place] Diabetes As sociation guidelines indicate that patients with HgbA1c in the range 5.7-6.4% are at increased risk for development of diabetes, and intervention by lifestyle modification may be beneficial. HgbA1c greater or equal to 6.5% is considered diagnostic of diabetes. Interpretation and review of laboratory results Abnormal [facility] Average glucose Estimated from glycated hemoglobin (Bld) [Mass/Vol] 120 mg/dL Normal [facility] Comment on above: Order Comment: Avery luevano Type: BLOOD SPECIMEN Ordering Facility: [facility] Address: [address] [place] [address] Result Comment: eAG: (Estimated average glucose) is a calculated value from HgbA1c and is account manager sales representative of the average blood glucose level in the last 2-3 month period. Performed By: #### 5 5454-3 #### [facility] CLIA [id number] [address] [place] [address] [place] HbA1c (Bld) [Mass fraction] 5.8 % High 4.3-5.6 [facility] Comment on above: Order Comment: Avery luevano Type: BLOOD SPECIMEN Ordering Facility: [facility] Address: [address] [place] [address] Result Comment: [place] Diabetes Association guidelines indicate that patients with HgbA1c in the range 5.7-6.4% are at increased risk for development of diabetes, and intervention by lifestyle modification may be beneficial. HgbA1c greater or equal to 6.5% is considered diagnostic of diabetes. Performed By: #### 5 5454-3 #### [facility] CLIA [id number] [address] [place] [address] OF [facility] Lipid 1996 panelon 5 Cholesterol [Mass/Vol] 220 mg/dL High <200 [facility] Comment on above: Order Comment: Avery luevano Type: BLOOD SPECIMEN Ordering Facility: [facility] Address: [address] [place] [address] Result Comment: <200 mg/dL, Desirable 200-239 mg/dL, Borderline high >239 mg/dL, High Performed By: #### T BUTCH, 31589-8, , 2132-06 #### [facility] CLIA [id number] [address] [place] [address] [place] Cholesterol in HDL [Mass/Vol] 42 mg/dL Normal >39 [facility] Comment on above: Order Comment: Avery luevano Type: BLOOD SPECIMEN Ordering Facility: [facility] Address: [address] [place] [address] Result Comment: 40-5 9 mg/dL, Acceptable >59 mg/dL, High: Negative risk factor for coronary heart disease <40 mg/dL, Low: Positive risk factor for coronary heart disease Performed By: #### T BUTCH, 04588-7, , 2132-06 #### [facility] CLIA [id number] [address] [place] [address] Cholesterol in LDL [Mass/Vol] 147 mg/dL High <100 [facility] Comment on above: Order Comment: Speci men Type: BLOOD SPECIMEN Ordering Facility: [facility] Address: [address] [place] [address] Result Comment: <100 mg/dL, Optimal 100-129 mg/dL, Near optimal/above optimal 130-159 mg/dL, Borderline high 160-189 mg/dL, High >189 mg/dL, Very high Secondary prevention optimal LDL Cholesterol levels are recommended to be <70 mg/dL LDL cholesterol is calculated using the Beyer-NIH equation. Performed By: #### T BUTCH, 93735-1, , 2132-06 #### [facility] CLIA [id number] [address] [place] [address] [place] Cholesterol in LDL/Cholesterol in HDL [Mass ratio] 3.50 {ratio} High <2.54 [facility] Comment on above: Order Comment: Avery luevano Type: BLOOD SPECIMEN Ordering Facility: [facility] Address: [address] [place] [address] Result Comment: Refe rence: 1. National Cholesterol Education Program ATP III Guideline At-A-Glance Quick Desk Reference: National Heart, Lung, and Blood [place]. National Institutes of Health. 2001: NIH Publication No. 01-3305. 2. An International Atherosclerosis Society position paper: global recommendations for the management of dyslipidemia: executive summary, Atherosclerosis. 2014: 232(2):410-413. Performed By: #### T BUTCH, 91605-7, , 2132-06 #### [facility] CLIA [id number] [address] [place] [address] [place] Cholesterol in VLDL [Mass/Vol] 31 mg/dL High <30 [facility] Comment on above: Order Comment: Avery luevano Type: BLOOD SPECIMEN Ordering Facility: [facility] Address: [address] [place] [address] Performed By: #### T BUTCH, 47511-3, , 2132-06 #### [facility] CLIA [id number] [address] [place] [address] [place] Cholesterol non HDL [Mass/Vol] 178 mg/dL High <130 [facility] Comment on above: Order Comment: Avery luevano Type: BLOOD SPECIMEN Ordering Facility: [facility] Address: [address] [place] [address] Result Comment: <130 mg/dL, Optimal 130-159 mg/dL, Near optimal/above optimal 160-189 mg/dL, Borderline high 190-219 mg/dL, High >219 mg/dL, Very high Secondary prevention optimal non HDL Cholesterol levels are recommended to be <100 mg/dL Performed By: #### T BUTCH, 32958-9, , 2132-06 #### [facility] CLIA [id number] [address] [place] [address] [place] Cholesterol.total/Choles terol in HDL [Mass ratio] 5.24 {ratio} High <5.10 [facility] Comment on above: Order Comment: Speci men Type: BLOOD SPECIMEN Ordering Facility: [facility] Address: [address] [place] [address] Performed By: #### T BUTCH, 20489-0, , 2132-06 #### [facility] CLIA [id number] [address] [place] [address] [place] FASTING TIME 12 hrs Normal [facility] Comment on above: Order Comment: Speci men Type: BLOOD SPECIMEN Ordering Facility: [facility] Address: [address] [place] [address] Performed By: #### Say RAE, 66566-9, , 2132-06 #### [facility] CLIA [id number] [address] [place], [place] [address] [place] Triglyceride [Mass/Vol] 169 mg/dL High <150 [facility] Comment on above: Order Comment: Speci men Type: BLOOD SPECIMEN Ordering Facility: [facility] Address: [address] [place] [address] Result Comment: <150 mg/dL, Normal 150-199 mg/dL, Borderline high 200-499 mg/dL, High >499 mg/dL, Very high Performed By: #### T BUTCH, 60492-7, , 2132-06 #### [facility] CLIA [id number] [address] [place], [place] [address] [place] TSH W/REFLEX FT4on 5 TSH Qn 3.700 m[IU]/L Normal 0.270-4.200 [facility] Comment on above: Order Comment: Speci men Type: BLOOD SPECIMEN Ordering Facility: [facility] Address: [address] [place] [address] Performed By: #### T [facility], 73557-1, 75095-9, 9 #### [facility] CLIA [id number] [address] [place] [address] [place] VITAMIN D 25 HYDROXYon 02-25 25-hydroxyvitamin D3 [Mass/Vol] 45.3 ng/mL 31.0 - 80.0 ng/mL [facility] Vit B12 SerPl-mCncon 025 Cobalamin (Vitamin B12) [Mass/Vol] 412 pg/mL Normal 232-1245 [facility] Comment on above: Order Comment: Speci men Type: BLOOD SPECIMEN Ordering Facility: [facility] Address: [address] [place] [address] [place] [address] Performed By: #### T [facility], 07936-9, 29477-5, 9 #### [facility] CLIA [id number] [address] [place] [address] [place] CNOVon 02-24-2025 CNOV Office Visit (AGFAMPLE) SUHAS ABURTO ([id number]) 1965 F Date Time Provider Department 02/24/25 2:00 PM NORA ROBERTSON During your visit today, we recorded the following information about you: Temperature Pulse Respiration Blood pressure 98 degrees 63/minute 18/minute 132/80 Weight Height 62.1 kg 1.524 m Nora Robertson, LABORER DRIVER.STRAINER TENDER 03/01/2025 2:23 PM Signed CHIEF COMPLAINT: Suhas is a 59-year-old female presenting for medication refills, with additional complaints of foot pain and hand numbness. I reviewed past medical, surgical, social, and family histories today and updated chart. Allergies, chronic medications, and supplements were also reviewed. Recording using DocSea software for draft documentation of the visit was discussed with the patient/authorized account manager sales representative; all questions welcomed and answered. Patient/authorized account manager sales representative agreed to proceed Medication Refills: - Out of refills for vitamin D, atenolol, Prozac, and Claritin. Foot Pain: - Recent foot pain after pulling weeds; described as knots in the feet. - Pain has resolved; x-ray at [facility] showed no fractures. - Difficulty putting pressure on the foot; used Tylenol, [place], and ice packs for relief. - Denies [...] of Onset Cancer Mother throat Heart Brother [place] Diabetes Brother Coronary Artery Disease Brother [place] Current Outpatient Medications Medication Sig Dispense Refill [...] intact. Psychi (more content not included)... Normal [facility] CNOVon 02-18-2025 CN Office Visit (UCWSTR ) SUHAS ABURTO ([id number]) 1965 F Date Time Provider Department 02/18/25 3:45 PM JULISSA SOTO [facility] During your visit today, we recorded [...] [M79.671] Order(s):XR FOOT GENERAL 3V AP/LAT/OBL RIGHT [[id number]] Order #: [id number] [facility] Pres (more content not included)... Normal [facility] XR FOOT 3V AP/LAT/OBL RTon 0 [...] as discussed in results portion of report Network Applications Specialist: ODALISB Transcribe Date/Time: Feb 18 2025 4:10P Dictated by : CAMPOS GUEVARA DO This examination was interpreted and the report reviewed and electronically signed by: CAMPOS GUEVARA DO on Feb 18 2025 4:13PM EST [id number] Normal [facility] XR Foot - right AP and Later al and obliqueon 02-18-2025 IMPRESSION: Findings as discussed in results portion of report Network Applications Specialist: MARYLU Transcribe Date/Time: Feb 18 2025 4:10P Dictated by : CAMPOS GUEVARA DO This examination was interpreted and the report reviewed and electronically signed by: CAMPOS GUEVARA DO on Feb 18 2025 4:13PM [facility] DIVISION OF RADIOLOGY * * *Final Report* [...] dislocations are seen. DIVISION OF RADIOLOGY Provider, [facility] - 02/18/2025 * * *Final Report* * [...] as discussed in results portion of report Network Applications Specialist: MARYLU Transcribe Date/Time: Feb 18 2025 4:10P Dictated by : CAMPOS GUEVARA DO This examination was interpreted and the report reviewed and electronically signed by: CAMPOS GUEVARA DO on Feb 18 2025 4:13PM EST [facility] Radiology Study observation (narrative) [facility] XR Foot - right AP and Later al and obliqueOrdered By: Ccf Provider on 02-18-2025 [facility] Nidhi 11-14-2024 CNPN Telephone (UCWSTR) SUHAS ABURTO ([id number]) 1965 F Date Time Provider Department 11/14/24 MONIQUE TORO [facility] During your visit today, we recorded the following information about you: Sole Love OCCA 11/14/2024 4:22 PM Signed ----- Message from Monique Toro APRN.STRAINER TENDER sent at 11/14/2024 2:45 PM EST ----- [...] of func*10/04/2010 11/16/2015 ASCUS on Pap smear [[id number]] 08/23/2011 Blood in stool [K92.1] 08/31/2011 03/24/2014 Anemia, unspecified [D64.9] 08/31/2011 06/28/2016 Iron deficiency anemia [D50.9] 09/28/2011 Neck pain [M54.2] 01/23/2013 06/28/2016 Cervicalgia [M54.2] 11/06/2013 Adjustment disorder with mixed anxiety and depr*12/29/2013 Psychic factors associated with diseases classi*12/29/2013 Sciatica [M54.30] 02/23/2015 Tension-type headache, not intractable [G44.209]01/27/2016 Abnormal mammogram [R92.8] 07/06/2017 Encounter Status:Closed by Sindi CERVANTES on 11/14/24 Normal [facility] Bacteria Ur Culton 5 Bacteria identified [...] , Intermediate >32 , Resistant >64 Abnormal [facility] Comment on above: Performed By: #### 1 989-3 #### [facility] TATIANAIA [id number] [address] [place] [address] [place] CNOVon 11-12-2024 CNOV Office Visit (UCWSTR ) SUHAS ABURTO ([id number]) 1965 F Date Time Provider Department 11/12/24 10:00 AM YANDEL DE LA ROSA [facility] During your visit today, we recorded the following information about you: Temperature Pulse Respiration Blood pressure 99.5 degrees 85/minute 20/minute 122/80 Weight 62.6 kg Yandel De La Rosa PA-C 11/12/2024 10:17 AM Signed This note was created using eBIZ.mobility. Subjective Suhas Aburto is a 59 year [...] Diagnosis:Acute UTI [N39.0] Order(s):UA DIP, URINE (POC) [[id number]] Order #: [id number]. #:[id number] BACTERIAL CULTURE, URINE [SQURCUL] Order #: [id number]. #:[id number] cephALEXin (KEFLEX) 500 mg capsuleTake 1 capsule [...] NOS [K80.20 (more content not included)... Normal [facility] UA DIP, URINE (POC)on 2024 BILIRUBIN UA (POCT) Negative Negative [facility] CLARITY UA (POCT) Cloudy [facility] COLOR UA (POCT) Light yellow [facility] GLUCOSE UA (POCT) Negative Negative mg/dL [facility] Hemoglobin Ql (U) Large Abnormal Negative [facility] Interpretation and review of laboratory results Abnormal [facility] KETONE UA (POCT) Negative Negative mg/dL [facility] LEUKOCYTES UA (POCT) Large Abnormal Negative [facility] NITRITE UA (POCT) Positive Abnormal Negative [facility] PH UA (POCT) 6.0 4.5 - 8.0 [facility] Protein Ql (U) 100 mg/dL Abnormal Negative [facility] SPECIFIC GRAVITY UA (POCT) 1.010 1.005 - 1.030 [facility] UROBILINOGEN UA (POCT) 0.2 [place] l E.U./dL [facility] Location:[facility], [address], [place], [address] [facility] POINT OF CARE [facility] Cardiology Visit Reporton Cardiology Visit Report [facility] [address] [place], [place] [address] OFFICE VISIT Date of Service: 10/16/24 MR#: [id number] Acct: [id number] Name: SUHAS ABURTO Rep #: [id number] : 1965 Provider: WESTON scott Age/Sex: 59/F Location: [facility] Status: Signed HPI HPI History of Present Illness Details: This is a 59-year-old female who presents to the office today for a posthospital follow-up. She was evaluated [facility] August 2024 for hypertension and elevated troponin. [...] Pulse Source NIBP Intake Visit Reasons: S/P [facility] 09/06 Welfare Investigator Required: No Is patient in pain?: No [...] you fallen in the past year?: Yes [facility] Medical History Anxiety and depression Osteoarthritis [...] Endo: N (more content not included)... Normal [facility] CNPNon 09-24-2024 CNPN Telephone (AGFAMPLE) SUHAS ABURTO ([id number]) 1965 F Date Time Provider Department 09/24/24 NORA ROBERTSON During your visit today, we recorded the following information about you: Chayito Norris MA 09/24/2024 2:21 PM Signed ----- Message from Nora Robertson APRN.STRAINER TENDER sent at 09/24/2024 1:38 PM EST ----- [...] Date Reviewed: 09/18/2024 Reviewed by: Nora Robertson APRN.STRAINER TENDER - Fully Assessed Reason for Visit: Results [...] of func*10/04/2010 11/16/2015 ASCUS on Pap smear [[id number]] 08/23/2011 Blood in stool [K92.1] 08/31/2011 03/24/2014 Anemia, unspecified [D64.9] 08/31/2011 06/28/2016 Iron deficiency anemia [D50.9] 09/28/2011 Neck pain [M54.2] 01/23/2013 06/28/2016 Cervicalgia [M54.2] 11/06/2013 Adjustment disorder with mixed anxiety and depr*12/29/2013 Psychic factors associated with diseases classi*12/29/2013 Sciatica [M54.30] 02/23/2015 Tension-type headache, not intractable [G44.209]01/27/2016 Abnormal mammogram [R92.8] 07/06/2017 Encounter Status:Closed by CHAYITO NORRIS on 09/24/24 Normal [facility] CNOVon 09-18-2024 CNOV Office Visit (AGFAMPLE) SUHAS ABURTO ([id number]) 1965 F Date Time Provider Department 09/18/24 4:00 PM NORA ROBERTSON During your visit today, we recorded the following information about you: Temperature Pulse Respiration Blood pressure 98.1 degrees 70/minute 16/minute 116/68 Weight Height 62.8 kg 1.524 m Nora Robertson APRN.STRAINER TENDER 09/21/2024 8:11 [place] [address] Date of Evaluation: 09/18/2024 Patient Name: Suhas Aburto : 1965 Chief Complaint: Patient presents with: 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 Subjective Ms. Aburto is a 59 [...] Night sweats: No Will be seeing a sexton helper in [place] after recent ER visit to [place] after she fell and hit her head [...] of Onset Cancer Mother throat Heart Brother [place] Diabetes Brother Coronary Artery Disease Brother [place] Social History Tobacco Use Smoking status: Never [...] present. No erythema, tenderness or bleeding. Comments: Patient Service Rep offered. Switched to small speculum due to [...] back: Norm (more content not included)... Normal [facility] HIGH RISK HUMAN PAPILLOMA DILLON (HPV), PCR FOR DETECTION AND GENOTYPINGon 09-18-2024 HPV 16 Ag Ql (Unsp spec) Not detected Normal Not detec [facility] Comment on above: Order Comment: Speci men Type: FLUID SPECIMENOrdering Facility: [facility] Address: [address] [place] [address] Performed By: #### H PVHRT ####[facility] [id number] [place] [address] [place] HPV 18 Ag Ql (Unsp spec) Not detected Normal Not detec [facility] Comment on above: Order Comment: Speci men Type: FLUID SPECIMENOrdering Facility: [facility] Address: [address] [place] [address] Performed By: #### H PVHRT ####[facility] [id number] [place] HPV 31+33+35+39+45+51+52+56+ 58+59+66+68 DNA LILIBETH+probe Ql (Cvx) Not detected Normal Not detected [facility] Comment on above: Order Comment: Speci men Type: FLUID SPECIMENOrdering Facility: [facility] Address: [address] [place] [address] Result Comment: High Risk HPV Other Type includes HPV types 31, 33, 35, 39, 45, 51, 52, 56, 58, 59, 66 and 68. Performed By: #### H PVHRT ####[facility] [id number] [place] [address] [place] PAP TESTon 09-18-2024 ADEQUACY Normal [facility] Comment on above: Order Comment: Speci men Type: FLUID SPECIMEN Ordering Facility: [facility] Address: [address] [place] [address] Result Comment: Sati sfactory for interpretation. No endocervical component Performed By: #### L [id number] #### [facility] CLIA [id number] [address] [place] CASE REPORT Normal [facility] Comment on above: Order Comment: Speci men Type: FLUID SPECIMEN Ordering Facility: [facility] Address: [address] [place] [address] Result Comment: Gyne cologic Cytology Report Case: [id number] Authorizing Provider: Nora Robertson, Collected: 09/18/2024 04:04 PM LABORER DRIVER.STRAINER TENDER Ordering Location: [facility] Received: 09/18/2024 05:33 PM First Screen: Feciuch, Merry, CT, ASCP Specimen: Pap Test, ThinPrep, Cervix Performed By: #### L [id number] #### [facility] CLIA [id number] [address] [place] CLINICAL HISTORY, CYTOLOGY, SUPERVISOR VOLUNTEER SERVICES Post Menopausal Normal [facility] Comment on above: Order Comment: Speci men Type: FLUID SPECIMEN Ordering Facility: [facility] Address: [address] [place] [address] Performed By: #### L [id number] #### [facility] CLIA [id number] [address] [place] [address] FINAL PERFORMING LAB Normal [facility] Comment on above: Order Comment: Speci men Type: FLUID SPECIMEN Ordering Facility: [facility] Address: [address] [place] [address] Result Comment: Tech nical component, oracle etl developer screening performed at [facility], [address] [place] [address] CLIA# [id number] Diagnostic interpretation performed at [facility], [address] [place] [address] CLIA# [id number] Venue Coordinator: Ezekiel Baer M.D. Performed By: #### L [id number] #### [facility] CLIA [id number] [address] [place] [address] INTERPRETATION, CYTOLOGY, SUPERVISOR VOLUNTEER SERVICES Normal [facility] Comment on above: Order Comment: Speci men Type: FLUID SPECIMEN Ordering Facility: [facility] Address: [address] [place] [address] Result Comment: Nega tive for intraepithelial lesion or malignancy. Performed By: #### L [id number] #### [facility] CLIA [id number] [address] [place] [address] PAP DISCLAIMER COMMENT The Pap Smear is a screening test for cervical cancer. False negative results occur with all screening tests, emphasizing the need for rescreening at recommended intervals, and clinical correlation. [facility] Comment on above: Order Comment: Speci men Type: FLUID SPECIMEN Ordering Facility: [facility] Address: [address] [place] [address] Performed By: #### L [id number] #### [facility] CLIA [id number] [address] [place] [address] PAP SHIRT BANDER COMMENT This specimen has been analyzed by the [employer] System, an automated imaging and review system, which assists the laboratory in evaluating cells on ThinPrep Pap tests. Following automated imaging, selected kemp from every slide are reviewed by a oracle etl developer. Normal [facility] Comment on above: Order Comment: Speci men Type: FLUID SPECIMEN Ordering Facility: [facility] Address: [address] [place] [address] Performed By: #### L [id number] #### [facility] CLIA [id number] [address] [place] [address] [place] Basic Metabolic Profile (BMP )on 09-13-2024 BUN Normal 7-18 [facility] Comment on above: Result Comment: Canc elled via OM: Order cancelled - Patient discharged Performed By: #### L 500.2500, L100.0500 #### [facility] [address] [place], [address] BUN/CRE Normal 10-20 [facility] Comment on above: Result Comment: Canc elled via OM: Order cancelled - Patient discharged Performed By: #### L 500.2500, L100.0500 #### [facility] [address] [place], [address] CA,Total Normal 8.5-10.1 [facility] Comment on above: Result Comment: Canc elled via OM: Order cancelled - Patient discharged Performed By: #### L 500.2500, L100.0500 #### [facility] [address] [place], [address] CL Normal 98-107 [facility] Comment on above: Result Comment: Canc elled via OM: Order cancelled - Patient discharged Performed By: #### L 500.2500, L100.0500 #### [facility] [address] [place], [address] CO2 Normal 21.0-32.0 [facility] Comment on above: Result Comment: Canc elled via OM: Order cancelled - Patient discharged Performed By: #### L 500.2500, L100.0500 #### [facility] [address] [place], [address] CREAT,SERUM Normal 0.55-1.02 [facility] Comment on above: Result Comment: Canc elled via OM: Order cancelled - Patient discharged Performed By: #### L 500.2500, L100.0500 #### [facility] [address] [place], [address] EST GFR Normal >60 [facility] Comment on above: Result Comment: Canc elled via OM: Order cancelled - Patient discharged Performed By: #### L 500.2500, L100.0500 #### [facility] [address] [place], [address] EST GFR - AA Normal >60 [facility] Comment on above: Result Comment: Canc elled via OM: Order cancelled - Patient discharged Performed By: #### L 500.2500, L100.0500 #### [facility] [address] [place], [address] GAP Normal 5-15 [facility] Comment on above: Result Comment: Canc elled via OM: Order cancelled - Patient discharged Performed By: #### L 500.2500, L100.0500 #### [facility] [address] [place], [address] GLU Normal 74-106 [facility] Comment on above: Result Comment: Canc elled via OM: Order cancelled - Patient discharged Performed By: #### L 500.2500, L100.0500 #### [facility] [address] [place], [address] Potassium Normal 3.5-5.1 [facility] Comment on above: Result Comment: Canc elled via OM: Order cancelled - Patient discharged Performed By: #### L 500.2500, L100.0500 #### [facility] [address] [place], [address] Basic Metabolic Profile (BMP) Normal 136-145 [facility] Comment on above: Result Comment: Canc elled via OM: Order cancelled - Patient discharged Performed By: #### L 500.2500, L100.0500 #### [facility] [address] [place], [address] CBC-Complete Blood Cnt No Di ffon 09-13-2024 HCT Normal 37-47 [facility] Comment on above: Result Comment: Canc elled via OM: Order cancelled - Patient discharged Performed By: #### L 500.2500, L100.0500 #### [facility] [address] [place], [address] HGB Normal 12.0-15.0 [facility] Comment on above: Result Comment: Canc elled via OM: Order cancelled - Patient discharged Performed By: #### L 500.2500, L100.0500 #### [facility] [address] [place], [address] MCH Normal 27.0-32.0 [facility] Comment on above: Result Comment: Canc elled via OM: Order cancelled - Patient discharged Performed By: #### L 500.2500, L100.0500 #### [facility] [address] [place], [address] MCHC Normal 32-36 [facility] Comment on above: Result Comment: Canc elled via OM: Order cancelled - Patient discharged Performed By: #### L 500.2500, L100.0500 #### [facility] [address] [place], [address] MCV Normal 81-99 [facility] Comment on above: Result Comment: Canc elled via OM: Order cancelled - Patient discharged Performed By: #### L 500.2500, L100.0500 #### [facility] [address] [place], [address] PLT Normal 150-450 [facility] Comment on above: Result Comment: Canc elled via OM: Order cancelled - Patient discharged Performed By: #### L 500.2500, L100.0500 #### [facility] [address] [place], [address] RBC Normal 4.2-5.4 [facility] Comment on above: Result Comment: Canc elled via OM: Order cancelled - Patient discharged Performed By: #### L 500.2500, L100.0500 #### [facility] [address] [place], [address] RDW CV Normal 11.6-14.6 [facility] Comment on above: Result Comment: Canc elled via OM: Order cancelled - Patient discharged Performed By: #### L 500.2500, L100.0500 #### [facility] [address] [place], [address] RDW SD Normal 35.1-43.9 [facility] Comment on above: Result Comment: Canc elled via OM: Order cancelled - Patient discharged Performed By: #### L 500.2500, L100.0500 #### [facility] [address] [place], [address] WBC Normal 4.4-11.0 [facility] Comment on above: Result Comment: Canc elled via OM: Order cancelled - Patient discharged Performed By: #### L 500.2500, L100.0500 #### [facility] [address] [place], [address] Basic Metabolic Profile (BMP )on 09-12-2024 BUN Normal 7-18 [facility] Comment on above: Result Comment: Canc elled via OM: Order cancelled - Patient discharged Performed By: #### L 400.0001 #### [facility] [address] [place], [address] BUN/CRE Normal 10-20 [facility] Comment on above: Result Comment: Canc elled via OM: Order cancelled - Patient discharged Performed By: #### L 400.0001 #### [facility] [address] [place], [address] CA,Total Normal 8.5-10.1 [facility] Comment on above: Result Comment: Canc elled via OM: Order cancelled - Patient discharged Performed By: #### L 400.0001 #### [facility] [address] [place], [address] CL Normal 98-107 [facility] Comment on above: Result Comment: Canc elled via OM: Order cancelled - Patient discharged Performed By: #### L 400.0001 #### [facility] [address] [place], [address] CO2 Normal 21.0-32.0 [facility] Comment on above: Result Comment: Canc elled via OM: Order cancelled - Patient discharged Performed By: #### L 400.0001 #### [facility] [address] [place], [address] CREAT,SERUM Normal 0.55-1.02 [facility] Comment on above: Result Comment: Canc elled via OM: Order cancelled - Patient discharged Performed By: #### L 400.0001 #### [facility] [address] [place], [address] EST GFR Normal >60 [facility] Comment on above: Result Comment: Canc elled via OM: Order cancelled - Patient discharged Performed By: #### L 400.0001 #### [facility] [address] [place], [address] EST GFR - AA Normal >60 [facility] Comment on above: Result Comment: Canc elled via OM: Order cancelled - Patient discharged Performed By: #### L 400.0001 #### [facility] [address] [place], [address] GAP Normal 5-15 [facility] Comment on above: Result Comment: Canc elled via OM: Order cancelled - Patient discharged Performed By: #### L 400.0001 #### [facility] [address] [place], [address] GLU Normal 74-106 [facility] Comment on above: Result Comment: Canc elled via OM: Order cancelled - Patient discharged Performed By: #### L 400.0001 #### [facility] [address] [place], [address] Potassium Normal 3.5-5.1 [facility] Comment on above: Result Comment: Canc elled via OM: Order cancelled - Patient discharged Performed By: #### L 400.0001 #### [facility] [address] [place], [address] Basic Metabolic Profile (BMP) Normal 136-145 [facility] Comment on above: Result Comment: Canc elled via OM: Order cancelled - Patient discharged Performed By: #### L 400.0001 #### [facility] [address] [place], [address] Bedside Glucoseon 09-12-2024 FINGERSTICK GLU 93 mg/dL Normal 74-106 [facility] Comment on above: Result Comment: EHSAN WINTER OF PATIENT CARE PER NURSING PROTOCOL Performed By: #### L 400.0001 #### [facility] [address] [place], [address] CBC-Complete Blood Cnt No Di ffon 09-12-2024 HCT Normal 37-47 [facility] Comment on above: Result Comment: Canc elled via OM: Order cancelled - Patient discharged Performed By: #### L 400.0001 #### [facility] [address] [place], [address] HGB Normal 12.0-15.0 [facility] Comment on above: Result Comment: Canc elled via OM: Order cancelled - Patient discharged Performed By: #### L 400.0001 #### [facility] [address] [place], [address] MCH Normal 27.0-32.0 [facility] Comment on above: Result Comment: Canc elled via OM: Order cancelled - Patient discharged Performed By: #### L 400.0001 #### [facility] [address] [place], [address] MCHC Normal 32-36 [facility] Comment on above: Result Comment: Canc elled via OM: Order cancelled - Patient discharged Performed By: #### L 400.0001 #### [facility] [address] [place], [address] MCV Normal 81-99 [facility] Comment on above: Result Comment: Canc elled via OM: Order cancelled - Patient discharged Performed By: #### L 400.0001 #### [facility] [address] [place], [address] PLT Normal 150-450 [facility] Comment on above: Result Comment: Canc elled via OM: Order cancelled - Patient discharged Performed By: #### L 400.0001 #### [facility] [address] [place], [address] RBC Normal 4.2-5.4 [facility] Comment on above: Result Comment: Canc elled via OM: Order cancelled - Patient discharged Performed By: #### L 400.0001 #### [facility] [address] [place], [address] RDW CV Normal 11.6-14.6 [facility] Comment on above: Result Comment: Canc elled via OM: Order cancelled - Patient discharged Performed By: #### L 400.0001 #### [facility] [address] [place], [address] RDW SD Normal 35.1-43.9 [facility] Comment on above: Result Comment: Canc elled via OM: Order cancelled - Patient discharged Performed By: #### L 400.0001 #### [facility] [address] [place], [address] WBC Normal 4.4-11.0 [facility] Comment on above: Result Comment: Canc elled via OM: Order cancelled - Patient discharged Performed By: #### L 400.0001 #### [facility] [address] [place], [address] Basic Metabolic Profile (BMP )on 09-11-2024 BUN Normal 7-18 [facility] Comment on above: Result Comment: Canc elled via OM: Order cancelled - Patient discharged Performed By: #### L 100.0500, L500.2500 #### [facility] [address] [place], [address] BUN/CRE Normal 10-20 [facility] Comment on above: Result Comment: Canc elled via OM: Order cancelled - Patient discharged Performed By: #### L 100.0500, L500.2500 #### [facility] [address] [place], [address] CA,Total Normal 8.5-10.1 [facility] Comment on above: Result Comment: Canc elled via OM: Order cancelled - Patient discharged Performed By: #### L 100.0500, L500.2500 #### [facility] [address] [place], [address] CL Normal 98-107 [facility] Comment on above: Result Comment: Canc elled via OM: Order cancelled - Patient discharged Performed By: #### L 100.0500, L500.2500 #### [facility] [address] [place], [address] CO2 Normal 21.0-32.0 [facility] Comment on above: Result Comment: Canc elled via OM: Order cancelled - Patient discharged Performed By: #### L 100.0500, L500.2500 #### [facility] [address] [place], [address] CREAT,SERUM Normal 0.55-1.02 [facility] Comment on above: Result Comment: Canc elled via OM: Order cancelled - Patient discharged Performed By: #### L 100.0500, L500.2500 #### [facility] [address] [place], [address] EST GFR Normal >60 [facility] Comment on above: Result Comment: Canc elled via OM: Order cancelled - Patient discharged Performed By: #### L 100.0500, L500.2500 #### [facility] [address] [place], [address] EST GFR - AA Normal >60 [facility] Comment on above: Result Comment: Canc elled via OM: Order cancelled - Patient discharged Performed By: #### L 100.0500, L500.2500 #### [facility] [address] [place], [address] GAP Normal 5-15 [facility] Comment on above: Result Comment: Canc elled via OM: Order cancelled - Patient discharged Performed By: #### L 100.0500, L500.2500 #### [facility] [address] [place], [address] GLU Normal 74-106 [facility] Comment on above: Result Comment: Canc elled via OM: Order cancelled - Patient discharged Performed By: #### L 100.0500, L500.2500 #### [facility] [address] [place], [address] Potassium Normal 3.5-5.1 [facility] Comment on above: Result Comment: Canc elled via OM: Order cancelled - Patient discharged Performed By: #### L 100.0500, L500.2500 #### [facility] [address] [place], [address] Basic Metabolic Profile (BMP) Normal 136-145 [facility] Comment on above: Result Comment: Canc elled via OM: Order cancelled - Patient discharged Performed By: #### L 100.0500, L500.2500 #### [facility] [address] [place], [address] CBC-Complete Blood Cnt No Di ffon 09-11-2024 HCT Normal 37-47 [facility] Comment on above: Result Comment: Canc elled via OM: Order cancelled - Patient discharged Performed By: #### L 100.0500, L500.2500 #### [facility] [address] [place], [address] HGB Normal 12.0-15.0 [facility] Comment on above: Result Comment: Canc elled via OM: Order cancelled - Patient discharged Performed By: #### L 100.0500, L500.2500 #### [facility] [address] [place], [address] MCH Normal 27.0-32.0 [facility] Comment on above: Result Comment: Canc elled via OM: Order cancelled - Patient discharged Performed By: #### L 100.0500, L500.2500 #### [facility] [address] [place], [address] MCHC Normal 32-36 [facility] Comment on above: Result Comment: Canc elled via OM: Order cancelled - Patient discharged Performed By: #### L 100.0500, L500.2500 #### [facility] [address] [place], [address] MCV Normal 81-99 [facility] Comment on above: Result Comment: Canc elled via OM: Order cancelled - Patient discharged Performed By: #### L 100.0500, L500.2500 #### [facility] [address] [facility] [place], [address] PLT Normal 150-450 [facility] Comment on above: Result Comment: Canc elled via OM: Order cancelled - Patient discharged Performed By: #### L 100.0500, L500.2500 #### [facility] [address] [place], [address] RBC Normal 4.2-5.4 [facility] Comment on above: Result Comment: Canc elled via OM: Order cancelled - Patient discharged Performed By: #### L 100.0500, L500.2500 #### [facility] [address] [place], [address] RDW CV Normal 11.6-14.6 [facility] Comment on above: Result Comment: Canc elled via OM: Order cancelled - Patient discharged Performed By: #### L 100.0500, L500.2500 #### [facility] [address] [place], [address] RDW SD Normal 35.1-43.9 [facility] Comment on above: Result Comment: Canc elled via OM: Order cancelled - Patient discharged Performed By: #### L 100.0500, L500.2500 #### [facility] [address] [place], [address] WBC Normal 4.4-11.0 [facility] Comment on above: Result Comment: Canc elled via OM: Order cancelled - Patient discharged Performed By: #### L 100.0500, L500.2500 #### [facility] [address] [place], [address] Basic Metabolic Profile (BMP )on 09-10-2024 BUN Normal 7-18 [facility] Comment on above: Result Comment: Canc elled via OM: Order cancelled - Patient discharged Performed By: #### L 100.0500, L500.2500 #### [facility] [address] [place], [address] BUN/CRE Normal 10-20 [facility] Comment on above: Result Comment: Canc elled via OM: Order cancelled - Patient discharged Performed By: #### L 100.0500, L500.2500 #### [facility] [address] [place], [address] CA,Total Normal 8.5-10.1 [facility] Comment on above: Result Comment: Canc elled via OM: Order cancelled - Patient discharged Performed By: #### L 100.0500, L500.2500 #### [facility] [address] [place], [address] CL Normal 98-107 [facility] Comment on above: Result Comment: Canc elled via OM: Order cancelled - Patient discharged Performed By: #### L 100.0500, L500.2500 #### [facility] [address] [place], [address] CO2 Normal 21.0-32.0 [facility] Comment on above: Result Comment: Canc elled via OM: Order cancelled - Patient discharged Performed By: #### L 100.0500, L500.2500 #### [facility] [address] [place], [address] CREAT,SERUM Normal 0.55-1.02 [facility] Comment on above: Result Comment: Canc elled via OM: Order cancelled - Patient discharged Performed By: #### L 100.0500, L500.2500 #### [facility] [address] [place], [address] EST GFR Normal >60 [facility] Comment on above: Result Comment: Canc elled via OM: Order cancelled - Patient discharged Performed By: #### L 100.0500, L500.2500 #### [facility] [address] [place], [address] EST GFR - AA Normal >60 [facility] Comment on above: Result Comment: Canc elled via OM: Order cancelled - Patient discharged Performed By: #### L 100.0500, L500.2500 #### [facility] [address] [place], [address] GAP Normal 5-15 [facility] Comment on above: Result Comment: Canc elled via OM: Order cancelled - Patient discharged Performed By: #### L 100.0500, L500.2500 #### [facility] [address] [place], [address] GLU Normal 74-106 [facility] Comment on above: Result Comment: Canc elled via OM: Order cancelled - Patient discharged Performed By: #### L 100.0500, L500.2500 #### [facility] [address] [place], [address] Potassium Normal 3.5-5.1 [facility] Comment on above: Result Comment: Canc elled via OM: Order cancelled - Patient discharged Performed By: #### L 100.0500, L500.2500 #### [facility] [address] [place], [address] Basic Metabolic Profile (BMP) Normal 136-145 [facility] Comment on above: Result Comment: Canc elled via OM: Order cancelled - Patient discharged Performed By: #### L 100.0500, L500.2500 #### [facility] [address] [place], [address] CBC-Complete Blood Cnt No Di ffon 09-10-2024 HCT Normal 37-47 [facility] Comment on above: Result Comment: Canc elled via OM: Order cancelled - Patient discharged Performed By: #### L 100.0500, L500.2500 ####[facility] [address] [place], [address] HGB Normal 12.0-15.0 [facility] Comment on above: Result Comment: Canc elled via OM: Order cancelled - Patient discharged Performed By: #### L 100.0500, L500.2500 ####[facility] [address] [place], [address] MCH Normal 27.0-32.0 [facility] Comment on above: Result Comment: Canc elled via OM: Order cancelled - Patient discharged Performed By: #### L 100.0500, L500.2500 ####[facility] [address] [place], [address] MCHC Normal 32-36 [facility] Comment on above: Result Comment: Canc elled via OM: Order cancelled - Patient discharged Performed By: #### L 100.0500, L500.2500 ####[facility] [address] [place], [address] MCV Normal 81-99 [facility] Comment on above: Result Comment: Canc elled via OM: Order cancelled - Patient discharged Performed By: #### L 100.0500, L500.2500 ####[facility] [address] [place], [address] PLT Normal 150-450 [facility] Comment on above: Result Comment: Canc elled via OM: Order cancelled - Patient discharged Performed By: #### L 100.0500, L500.2500 ####[facility] [address] [place], [address] RBC Normal 4.2-5.4 [facility] Comment on above: Result Comment: Canc elled via OM: Order cancelled - Patient discharged Performed By: #### L 100.0500, L500.2500 ####[facility] [facility] [address] [place], [address] RDW CV Normal 11.6-14.6 [facility] Comment on above: Result Comment: Canc elled via OM: Order cancelled - Patient discharged Performed By: #### L 100.0500, L500.2500 ####[facility] [address] [place], [address] RDW SD Normal 35.1-43.9 [facility] Comment on above: Result Comment: Canc elled via OM: Order cancelled - Patient discharged Performed By: #### L 100.0500, L500.2500 ####[facility] [address] [place], [address] WBC Normal 4.4-11.0 [facility] Comment on above: Result Comment: Canc elled via OM: Order cancelled - Patient discharged Performed By: #### L 100.0500, L500.2500 ####[facility] [address] [place], [address] Basic Metabolic Profile (BMP )on 09-09-2024 BUN Normal 7-18 [facility] Comment on above: Result Comment: Canc elled via OM: Order cancelled - Patient discharged Performed By: #### L 100.0500, L500.2500 ####[facility] [address] [place], [address] BUN/CRE Normal 10-20 [facility] Comment on above: Result Comment: Canc elled via OM: Order cancelled - Patient discharged Performed By: #### L 100.0500, L500.2500 ####[facility] [address] [place], [address] CA,Total Normal 8.5-10.1 [facility] Comment on above: Result Comment: Canc elled via OM: Order cancelled - Patient discharged Performed By: #### L 100.0500, L500.2500 ####[facility] [address] [place], [address] CL Normal 98-107 [facility] Comment on above: Result Comment: Canc elled via OM: Order cancelled - Patient discharged Performed By: #### L 100.0500, L500.2500 ####[facility] [address] [place], [address] CO2 Normal 21.0-32.0 [facility] Comment on above: Result Comment: Canc elled via OM: Order cancelled - Patient discharged Performed By: #### L 100.0500, L500.2500 ####[facility] [address] [place], [address] CREAT,SERUM Normal 0.55-1.02 [facility] Comment on above: Result Comment: Canc elled via OM: Order cancelled - Patient discharged Performed By: #### L 100.0500, L500.2500 ####[facility] [address] [place], [address] EST GFR Normal >60 [facility] Comment on above: Result Comment: Canc elled via OM: Order cancelled - Patient discharged Performed By: #### L 100.0500, L500.2500 ####[facility] [address] [place], [address] EST GFR - AA Normal >60 [facility] Comment on above: Result Comment: Canc elled via OM: Order cancelled - Patient discharged Performed By: #### L 100.0500, L500.2500 ####[facility] [address] [place], [address] GAP Normal 5-15 [facility] Comment on above: Result Comment: Canc elled via OM: Order cancelled - Patient discharged Performed By: #### L 100.0500, L500.2500 ####[facility] [address] [place], [address] GLU Normal 74-106 [facility] Comment on above: Result Comment: Canc elled via OM: Order cancelled - Patient discharged Performed By: #### L 100.0500, L500.2500 ####[facility] [address] [place], [address] Potassium Normal 3.5-5.1 [facility] Comment on above: Result Comment: Canc elled via OM: Order cancelled - Patient discharged Performed By: #### L 100.0500, L500.2500 ####[facility] [address] [place], [address] Basic Metabolic Profile (BMP) Normal 136-145 [facility] Comment on above: Result Comment: Canc elled via OM: Order cancelled - Patient discharged Performed By: #### L 100.0500, L500.2500 ####[facility] [address] [place], [address] CBC-Complete Blood Cnt No Di ffon 09-09-2024 HCT Normal 37-47 [facility] Comment on above: Result Comment: Canc elled via OM: Order cancelled - Patient discharged Performed By: #### L 100.0500, L500.2500 ####[facility] [address] [place], [address] HGB Normal 12.0-15.0 [facility] Comment on above: Result Comment: Canc elled via OM: Order cancelled - Patient discharged Performed By: #### L 100.0500, L500.2500 ####[facility] [address] [place], [address] MCH Normal 27.0-32.0 [facility] Comment on above: Result Comment: Canc elled via OM: Order cancelled - Patient discharged Performed By: #### L 100.0500, L500.2500 ####[facility] [address] [place], [address] MCHC Normal 32-36 [facility] Comment on above: Result Comment: Canc elled via OM: Order cancelled - Patient discharged Performed By: #### L 100.0500, L500.2500 ####[facility] [address] [place], [address] MCV Normal 81-99 [facility] Comment on above: Result Comment: Canc elled via OM: Order cancelled - Patient discharged Performed By: #### L 100.0500, L500.2500 ####[facility] [address] [place], [address] PLT Normal 150-450 [facility] Comment on above: Result Comment: Canc elled via OM: Order cancelled - Patient discharged Performed By: #### L 100.0500, L500.2500 ####[facility] [address] [place], [address] RBC Normal 4.2-5.4 [facility] Comment on above: Result Comment: Canc elled via OM: Order cancelled - Patient discharged Performed By: #### L 100.0500, L500.2500 ####[facility] [address] [place], [address] RDW CV Normal 11.6-14.6 [facility] Comment on above: Result Comment: Canc elled via OM: Order cancelled - Patient discharged Performed By: #### L 100.0500, L500.2500 ####[facility] [address] [place], [address] RDW SD Normal 35.1-43.9 [facility] Comment on above: Result Comment: Canc elled via OM: Order cancelled - Patient discharged Performed By: #### L 100.0500, L500.2500 ####[facility] [address] [place], [address] WBC Normal 4.4-11.0 [facility] Comment on above: Result Comment: Canc elled via OM: Order cancelled - Patient discharged Performed By: #### L 100.0500, L500.2500 ####[facility] [address] [place], [address] Basic Metabolic Profile (BMP )on 09-08-2024 BUN Normal 7-18 [facility] Comment on above: Result Comment: Canc elled via OM: Order cancelled - Patient discharged Performed By: #### L 100.0500, L500.2500 ####[facility] [address] [place], [address] BUN/CRE Normal 10-20 [facility] Comment on above: Result Comment: Canc elled via OM: Order cancelled - Patient discharged Performed By: #### L 100.0500, L500.2500 ####[facility] [address] [place], [address] CA,Total Normal 8.5-10.1 [facility] Comment on above: Result Comment: Canc elled via OM: Order cancelled - Patient discharged Performed By: #### L 100.0500, L500.2500 ####[facility] [address] [place], [address] CL Normal 98-107 [facility] Comment on above: Result Comment: Canc elled via OM: Order cancelled - Patient discharged Performed By: #### L 100.0500, L500.2500 ####[facility] [address] [place], [address] CO2 Normal 21.0-32.0 [facility] Comment on above: Result Comment: Canc elled via OM: Order cancelled - Patient discharged Performed By: #### L 100.0500, L500.2500 ####[facility] [address] [place], [address] CREAT,SERUM Normal 0.55-1.02 [facility] Comment on above: Result Comment: Canc elled via OM: Order cancelled - Patient discharged Performed By: #### L 100.0500, L500.2500 ####[facility] [address] [place], [address] EST GFR Normal >60 [facility] Comment on above: Result Comment: Canc elled via OM: Order cancelled - Patient discharged Performed By: #### L 100.0500, L500.2500 ####[facility] [address] [place], [address] EST GFR - AA Normal >60 [facility] Comment on above: Result Comment: Canc elled via OM: Order cancelled - Patient discharged Performed By: #### L 100.0500, L500.2500 ####[facility] [address] [place], [address] GAP Normal 5-15 [facility] Comment on above: Result Comment: Canc elled via OM: Order cancelled - Patient discharged Performed By: #### L 100.0500, L500.2500 ####[facility] [address] [place], [address] GLU Normal 74-106 [facility] Comment on above: Result Comment: Canc elled via OM: Order cancelled - Patient discharged Performed By: #### L 100.0500, L500.2500 ####[facility] [address] [place], [address] Potassium Normal 3.5-5.1 [facility] Comment on above: Result Comment: Canc elled via OM: Order cancelled - Patient discharged Performed By: #### L 100.0500, L500.2500 ####[facility] [address] [place], [address] Basic Metabolic Profile (BMP) Normal 136-145 [facility] Comment on above: Result Comment: Canc elled via OM: Order cancelled - Patient discharged Performed By: #### L 100.0500, L500.2500 ####[facility] [address] [place], [address] CBC-Complete Blood Cnt No Di ffon 09-08-2024 HCT Normal 37-47 [facility] Comment on above: Result Comment: Canc elled via OM: Order cancelled - Patient discharged Performed By: #### L 100.0500, L500.2500 ####[facility] [address] [place], [address] HGB Normal 12.0-15.0 [facility] Comment on above: Result Comment: Canc elled via OM: Order cancelled - Patient discharged Performed By: #### L 100.0500, L500.2500 ####[facility] [address] [place], [address] MCH Normal 27.0-32.0 [facility] Comment on above: Result Comment: Canc elled via OM: Order cancelled - Patient discharged Performed By: #### L 100.0500, L500.2500 ####[facility] [address] [place], [address] MCHC Normal 32-36 [facility] Comment on above: Result Comment: Canc elled via OM: Order cancelled - Patient discharged Performed By: #### L 100.0500, L500.2500 ####[facility] [address] [place], [address] MCV Normal 81-99 [facility] Comment on above: Result Comment: Canc elled via OM: Order cancelled - Patient discharged Performed By: #### L 100.0500, L500.2500 ####[facility] [address] [place], [address] PLT Normal 150-450 [facility] Comment on above: Result Comment: Canc elled via OM: Order cancelled - Patient discharged Performed By: #### L 100.0500, L500.2500 ####[facility] [address] [place], [address] RBC Normal 4.2-5.4 [facility] Comment on above: Result Comment: Canc elled via OM: Order cancelled - Patient discharged Performed By: #### L 100.0500, L500.2500 ####[facility] [address] [place], [address] RDW CV Normal 11.6-14.6 [facility] Comment on above: Result Comment: Canc elled via OM: Order cancelled - Patient discharged Performed By: #### L 100.0500, L500.2500 ####[facility] [address] [place], [address] RDW SD Normal 35.1-43.9 [facility] Comment on above: Result Comment: Canc elled via OM: Order cancelled - Patient discharged Performed By: #### L 100.0500, L500.2500 ####[facility] [address] [place], [address] WBC Normal 4.4-11.0 [facility] Comment on above: Result Comment: Canc elled via OM: Order cancelled - Patient discharged Performed By: #### L 100.0500, L500.2500 ####[facility] [address] [place], [address] Basic Metabolic Profile (BMP )on 09-07-2024 BUN Normal 7-18 [facility] Comment on above: Result Comment: Canc elled via OM: Order cancelled - Patient discharged Performed By: #### L 100.0500, L500.2500 ####[facility] [address] [place], [address] BUN/CRE Normal 10-20 [facility] Comment on above: Result Comment: Canc elled via OM: Order cancelled - Patient discharged Performed By: #### L 100.0500, L500.2500 ####[facility] [address] [place], [address] CA,Total Normal 8.5-10.1 [facility] Comment on above: Result Comment: Canc elled via OM: Order cancelled - Patient discharged Performed By: #### L 100.0500, L500.2500 ####[facility] [address] [place], [address] CL Normal 98-107 [facility] Comment on above: Result Comment: Canc elled via OM: Order cancelled - Patient discharged Performed By: #### L 100.0500, L500.2500 ####[facility] [address] [place], [address] CO2 Normal 21.0-32.0 [facility] Comment on above: Result Comment: Canc elled via OM: Order cancelled - Patient discharged Performed By: #### L 100.0500, L500.2500 ####[facility] [address] [place], [address] CREAT,SERUM Normal 0.55-1.02 [facility] Comment on above: Result Comment: Canc elled via OM: Order cancelled - Patient discharged Performed By: #### L 100.0500, L500.2500 ####[facility] [address] [place], [address] EST GFR Normal >60 [facility] Comment on above: Result Comment: Canc elled via OM: Order cancelled - Patient discharged Performed By: #### L 100.0500, L500.2500 ####[facility] [address] [place], [address] EST GFR - AA Normal >60 [facility] Comment on above: Result Comment: Canc elled via OM: Order cancelled - Patient discharged Performed By: #### L 100.0500, L500.2500 ####[facility] [address] [place], [address] GAP Normal 5-15 [facility] Comment on above: Result Comment: Canc elled via OM: Order cancelled - Patient discharged Performed By: #### L 100.0500, L500.2500 ####[facility] [address] [place], [address] GLU Normal 74-106 [facility] Comment on above: Result Comment: Canc elled via OM: Order cancelled - Patient discharged Performed By: #### L 100.0500, L500.2500 ####[facility] [address] [place], [address] Potassium Normal 3.5-5.1 [facility] Comment on above: Result Comment: Canc elled via OM: Order cancelled - Patient discharged Performed By: #### L 100.0500, L500.2500 ####[facility] [address] [place], [address] Basic Metabolic Profile (BMP) Normal 136-145 [facility] Comment on above: Result Comment: Canc elled via OM: Order cancelled - Patient discharged Performed By: #### L 100.0500, L500.2500 ####[facility] [address] [place], [address] CBC-Complete Blood Cnt No Di ffon 09-07-2024 HCT Normal 37-47 [facility] Comment on above: Result Comment: Canc elled via OM: Order cancelled - Patient discharged Performed By: #### L 100.0500, L500.2500 ####[facility] [address] [place], [address] HGB Normal 12.0-15.0 [facility] Comment on above: Result Comment: Canc elled via OM: Order cancelled - Patient discharged Performed By: #### L 100.0500, L500.2500 ####[facility] [address] [place], [address] MCH Normal 27.0-32.0 [facility] Comment on above: Result Comment: Canc elled via OM: Order cancelled - Patient discharged Performed By: #### L 100.0500, L500.2500 ####[facility] [address] [place], [address] MCHC Normal 32-36 [facility] Comment on above: Result Comment: Canc elled via OM: Order cancelled - Patient discharged Performed By: #### L 100.0500, L500.2500 ####[facility] [address] [place], [address] MCV Normal 81-99 [facility] Comment on above: Result Comment: Canc elled via OM: Order cancelled - Patient discharged Performed By: #### L 100.0500, L500.2500 ####[facility] [address] [place], [address] PLT Normal 150-450 [facility] Comment on above: Result Comment: Canc elled via OM: Order cancelled - Patient discharged Performed By: #### L 100.0500, L500.2500 ####[facility] [address] [place], [address] RBC Normal 4.2-5.4 [facility] Comment on above: Result Comment: Canc elled via OM: Order cancelled - Patient discharged Performed By: #### L 100.0500, L500.2500 ####[facility] [address] [place], [address] RDW CV Normal 11.6-14.6 [facility] Comment on above: Result Comment: Canc elled via OM: Order cancelled - Patient discharged Performed By: #### L 100.0500, L500.2500 ####[facility] [address] [place], [address] RDW SD Normal 35.1-43.9 [facility] Comment on above: Result Comment: Canc elled via OM: Order cancelled - Patient discharged Performed By: #### L 100.0500, L500.2500 ####[facility] [address] [place], [address] WBC Normal 4.4-11.0 [facility] Comment on above: Result Comment: Canc elled via OM: Order cancelled - Patient discharged Performed By: #### L 100.0500, L500.2500 ####[facility] [address] [place], [address] CBC W/Diff, Automatedon 11-2 -2023 Absolute Lymph 4.78 X10 3/uL High 0.83-4.51 [facility] Comment on above: Performed By: #### L 500.2500, L100.0500 #### [facility] [address] [place], [address] Absolute Neut 5.9 X10 3/uL Normal 2.0-7.7 [facility] Comment on above: Performed By: #### L 500.2500, L100.0500 #### [facility] [address] [place], [address] Basophils/100 WBC (Bld) 0.7 % Normal 0-1 [facility] Comment on above: Performed By: #### L 500.2500, L100.0500 #### [facility] [address] [place], [address] Eosinophils/100 WBC (Bld) 2.7 % Normal 0-5 [facility] Comment on above: Performed By: #### L 500.2500, L100.0500 #### [facility] [address] [place], [address] Erythrocyte distribution width (RBC) [Ratio] 13.2 % Normal 11.6-14.6 [facility] Comment on above: Performed By: #### L 500.2500, L100.0500 #### [facility] [address] [place], [address] Hematocrit (Bld) [Volume fraction] 33.2 % Low 37-47 [facility] Comment on above: Performed By: #### L 500.2500, L100.0500 #### [facility] [address] [place], [address] Hemoglobin (Bld) [Mass/Vol] 10.8 g/dL Low 12.0-15.0 [facility] Comment on above: Performed By: #### L 500.2500, L100.0500 #### [facility] [address] [place], [address] IG% 0.700 Normal 0.0-0.9 [facility] Comment on above: Result Comment: IG% - Immature Granulocytes (promyelocytes, myelocytes and metamyelocytes) > 1% indicates that a LEFT SHIFT is Present. Performed By: #### L 500.2500, L100.0500 #### [facility] [address] [place], [address] Lymphocytes/100 WBC (Bld) 40.0 % Normal 19-41 [facility] Comment on above: Performed By: #### L 500.2500, L100.0500 #### [facility] [address] [place], [address] MCH (RBC) [Entitic mass] 27.6 pg Normal 27.0-32.0 [facility] Comment on above: Performed By: #### L 500.2500, L100.0500 #### [facility] [address] [place], [address] MCHC (RBC) [Mass/Vol] 32.5 g/dL Normal 32-36 [facility] Comment on above: Performed By: #### L 500.2500, L100.0500 #### [facility] [address] [place], [address] MCV (RBC) [Entitic vol] 84.7 fL Normal 81-99 [facility] Comment on above: Performed By: #### L 500.2500, L100.0500 #### [facility] [address] [place], [address] Monocytes/100 WBC (Bld) 7.1 % Normal 0-10 [facility] Comment on above: Performed By: #### L 500.2500, L100.0500 #### [facility] [address] [place], [address] Neutrophils/100 WBC (Bld) 48.8 % Normal 47-70 [facility] Comment on above: Performed By: #### L 500.2500, L100.0500 #### [facility] [address] [place], [address] Nucleated RBC (Bld) [#/Vol] 0 10*3/uL Normal 0-5 [facility] Comment on above: Performed By: #### L 500.2500, L100.0500 #### [facility] [address] [place], [address] Platelet mean volume (Bld) [Entitic vol] 9.5 fL Normal 6.2-12.0 [facility] Comment on above: Performed By: #### L 500.2500, L100.0500 #### [facility] [address] [place], [address] Platelets (Bld) [#/Vol] 383 10*3/uL Normal 150-450 [facility] Comment on above: Performed By: #### L 500.2500, L100.0500 #### [facility] [address] [place], [address] RBC (Bld) [#/Vol] 3.92 10*6/uL Low 4.2-5.4 [facility] Comment on above: Performed By: #### L 500.2500, L100.0500 #### [facility] [address] [place], [address] RDW SD 40.5 fl Normal 35.1-43.9 [facility] Comment on above: Performed By: #### L 500.2500, L100.0500 #### [facility] [address] [place], [address] WBC (Bld) [#/Vol] 12.0 10*3/uL High 4.4-11.0 [facility] Comment on above: Performed By: #### L 500.2500, L100.0500 #### [facility] [address] [place], [address] Comprehensive Metabolic Prof ilon 09-06-2024 Albumin [Mass/Vol] 2.9 g/dL Low 3.2-5.0 [facility] Comment on above: Performed By: #### L 500.2500, L100.0500 #### [facility] [address] [place], [address] Albumin/Globulin [Mass ratio] 0.7 {ratio} Low 0.9-2.4 [facility] Comment on above: Performed By: #### L 500.2500, L100.0500 #### [facility] [address] [place], [address] ALK P 70 U/L Normal 45-117 [facility] Comment on above: Performed By: #### L 500.2500, L100.0500 #### [facility] [address] [place], [address] ALT [Catalytic activity/Vol] 22 U/L Normal 13-56 [facility] Comment on above: Performed By: #### L 500.2500, L100.0500 #### [facility] [facility] [address] [place], [address] AST [Catalytic activity/Vol] 17 U/L Normal 15-37 [facility] Comment on above: Performed By: #### L 500.2500, L100.0500 #### [facility] [address] [place], [address] Bilirubin [Mass/Vol] 0.20 mg/dL Normal 0.20-1.00 [facility] Comment on above: Result Comment: For patients on eltrombopag therapy, use of Dimension Archie TBIL is not recommended. Performed By: #### L 500.2500, L100.0500 #### [facility] [address] [place], [address] BUN/CRE 24.5 RATIO High 10-20 [facility] Comment on above: Performed By: #### L 500.2500, L100.0500 #### [facility] [address] [place], [address] CA,Total 9.1 mg/dL Normal 8.5-10.1 [facility] Comment on above: Performed By: #### L 500.2500, L100.0500 #### [facility] [address] [place], [address] Chloride [Moles/Vol] 108 mmol/L High 98-107 [facility] Comment on above: Performed By: #### L 500.2500, L100.0500 #### [facility] [address] [place], [address] CO2 [Moles/Vol] 25.0 mmol/L Normal 21.0-32.0 [facility] Comment on above: Performed By: #### L 500.2500, L100.0500 #### [facility] [address] [place], [address] Creatinine [Mass/Vol] 0.74 mg/dL Normal 0.55-1.02 [facility] Comment on above: Result Comment: The validity of the calculated GFR GFRAA in patients over 70 years has not been determined. Clinical correlation is essential. Performed By: #### L 500.2500, L100.0500 #### [facility] [address] [place], [address] ECRCL 66.55 ml/min Normal [facility] Comment on above: Performed By: #### L 500.2500, L100.0500 #### [facility] [address] [place], [address] EST GFR - AA 104 mL/min Normal >60 [facility] Comment on above: Result Comment: Afri can Nicaraguan GFR Calc Performed By: #### L 500.2500, L100.0500 #### [facility] [address] [place], [address] GAP 7 Normal 5-15 [facility] Comment on above: Performed By: #### L 500.2500, L100.0500 #### [facility] [address] [place], [address] GFR/1.73 sq M.predicted among non-blacks MDRD (S/P/Bld) [Vol rate/Area] 86 mL/min/{1.73_m2} Normal >60 [facility] Comment on above: Result Comment: Non- GFR Calc Performed By: #### L 500.2500, L100.0500 #### [facility] [address] [place], [address] Globulin (S) [Mass/Vol] 3.9 g/dL Normal 2.2-4.2 [facility] Comment on above: Performed By: #### L 500.2500, L100.0500 #### [facility] [address] [place], [address] Glucose [Mass/Vol] 99 mg/dL Normal 74-106 [facility] Comment on above: Performed By: #### L 500.2500, L100.0500 #### [facility] [address] [place], [address] Potassium [Moles/Vol] 3.7 mmol/L Normal 3.5-5.1 [facility] Comment on above: Performed By: #### L 500.2500, L100.0500 #### [facility] [address] [place], [address] Sodium [Moles/Vol] 140 mmol/L Normal 136-145 [facility] Comment on above: Performed By: #### L 500.2500, L100.0500 #### [facility] [address] [place], [address] T PROT 6.8 g/dL Normal 6.4-8.2 [facility] Comment on above: Performed By: #### L 500.2500, L100.0500 #### [facility] [address] [place], [address] Urea nitrogen [Mass/Vol] 18 mg/dL Normal 7-18 [facility] Comment on above: Performed By: #### L 500.2500, L100.0500 #### [facility] [address] [place], [address] Consultation - Cardiologyon 09-06-2024 Consultation - Cardiology [facility] Medical Records Department [address] [place] [address] Consultation - Cardiology 09/06/24 1554 MR#: [id number] Acct: [id number] Name: SUHAS ABURTO Rep #: [id number] : 1965 59 From: Max Foley MD PCP: WESTON Pang Status:ADM IN Location: [place] [address] Assessment Plan Assessment/Plan (1) Hypertension: QUALIFIERS: Hypertension [...] blood pressure 137/85 heart pulses regular 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 Cardiac care plan recommendation I review all the cardiac evaluation which included the echocardiogram showing LV function preserved No segmental wall motion abnormality ore dryer showed normal sinus rhythm. Mild elevation of high sensitive troponins with no symptoms of chest pain. Cardiac care plan and recommendation From cardiac standpoint I would recommend follow-up with an event monitor and possibly evaluation with Lexiscyoly sestamibi which can be set up as an outpatient Patient to follow-up with the cardiology team at [facility]. Max Foley MD,FAC,[facility] HPI Consult Data Date of Consult: 09/06/24 HPI Narrative Reason for Consultation: Elevated troponin/fall possible presyncopal HPI Narrative: SUHAS ABURTO, is a 59 F who presents [facility] Medical History Anxiety and depression Osteoarthritis [...] any symptoms sitting out in a chair ore dryer showed underlying normal sinus Card exam S1-S2 [...] 09/06/24 14: (more content not included)... Normal [facility] Discharge Instructionon 08-16 Discharge Instruction [facility] Medical Records Department [address] [place] [address] Instructions for Home/Discharge Instructions 09/06/24 1600 MR#: [id number] Acct: [id number] Name: SUHAS ABURTO Rep #: [id number] : 1965 59 From: Samaria Alvarado MD [...] follow-up appointment upon discharge.) Nora Robertson NP, SEAM PRESSER-C [Primary Care Provider] - Within 1 Week Disposition Disposition (needs filled in before D/C Order can be placed): Home, Self Care 09/06/24 1602 Samaria Alvarado MD CC: WESTON Robertson; Dr. Max Foley MD; Dr. Gregoria Ambrocio, DO Signed Normal [facility] Extremity Upper without Cont raon 09-06-2024 Extremity Upper without Contra [facility] Imaging Services [address] [place] [address] Extremity Upper without Contra MR#: [id number] Acct: [id number] Name: SUHAS ABURTO Rep #: [id number] : 1965 F 59 From: Jeromy Hansen MD PCP: WESTON Pang Status: ADM IN Study: Extremity Upper without Contra Date of Exam: 11/06/23 Exam# [id number] Ordering Dr: Manish Fernandez DO [id number] STUDY: CT RIGHT SHOULDER REASON FOR EXAM: [...] , CC: WESTON Robertson; Dr. Manish Fernandez, Network Applications Specialist: Signed Normal [facility] Lipid Profileon 09-06-2024 Cholesterol [Mass/Vol] 199 mg/dL Normal 200 [facility] Comment on above: Result Comment: <200 mg/dL Desirable 200-240 mg/dL Borderline >240 mg/dL High Risk Performed By: #### L 500.2500, L100.0500 #### [facility] [address] [place], [address] Cholesterol in HDL [Mass/Vol] 42 mg/dL Normal [facility] Comment on above: Result Comment: The drugs N-Acetylcysteine and Metamizole may falsely depress this assay. Reference Range HDL <40 mg/dL Low HDL Cholesterol HDL >or= 60 mg/dL High HDL Cholesterol Performed By: #### L 500.2500, L100.0500 #### [facility] [address] [place], [address] Cholesterol in LDL [Mass/Vol] 121 mg/dL Normal 0-130 [facility] Comment on above: Performed By: #### L 500.2500, L100.0500 #### [facility] [address] [place], [address] Cholesterol in VLDL [Mass/Vol] 36 mg/dL Normal 5-40 [facility] Comment on above: Performed By: #### L 500.2500, L100.0500 #### [facility] [address] [place], [address] Triglyceride [Mass/Vol] 180 mg/dL Normal [facility] Comment on above: Result Comment: The drugs N-Acetylcysteine and Metamizole may falsely depress this assay. Serum Triglycerides Reference Interval Normal <150 mg/dL Borderline high 150 - 199 mg/dL High 200 - 499 mg/dL Very High > or = 500 mg/dL Performed By: #### L 500.2500, L100.0500 #### [facility] [address] [place], [address] Magnesiumon 09-06-2024 Magnesium [Mass/Vol] 2.0 mg/dL Normal 1.6-2.6 [facility] Comment on above: Performed By: #### L 500.2500, L100.0500 #### [facility] [address] [place], [address] Partial Thromboplast Timeon 09-06-2024 aPTT Coag (Bld) [Time] 62.3 s High 24.1-36.2 [facility] Comment on above: Order Comment: Comme nts: heparin gtt, time sensitive Performed By: #### L 300.4310 #### [facility] [address] [place], [address] aPTT Coag (Bld) [Time] 66.8 s High 24.1-36.2 [facility] Comment on above: Order Comment: Comme nts: heparin gtt, time sensitive Performed By: #### L 300.4310 ####[facility] [address] [place], [address] Phosphoruson 09-06-2024 Phosphate [Mass/Vol] 4.5 mg/dL Normal 2.5-4.9 [facility] Comment on above: Performed By: #### L 500.2500, L100.0500 #### [facility] [address] [place], [address] Thyroid Stim Hormone (TSH)on 09-06-2024 TSH 3.500 uIU/mL Normal 0.358-3.740 [facility] Comment on above: Performed By: #### L 500.2500, L100.0500 #### [facility] [address] [place], [address] 12 Lead EKGon 09-05-2024 12 Lead EKG [facility] Cardiovascular Services [address] [place] [address] 12 Lead EKG 09/05/24 1942 MR#: [id number] Acct: [id number] Name: SUHAS ABURTO Rep #: [id number] : 1965 59 From: Baltazar Hoang MD [...] IS UNCONFIRMED Confirmed by Baltazar Hoang ([id number]), photography editor DANG MCCAIN ([id number]) on 09/08/2024 9:58:05 AM Referred By: Confirmed By: Baltazar Hoang 09/08/24 0958 Date Baltazar Hoang MD CC: WESTON Robertson; Dr. Gregoria Ambrocio DO; Dr. Samaria Alvarado MD Signed Normal [facility] 12 Lead EKG [facility] Cardiovascular Services [address] [place] [address] 12 Lead EKG 09/05/24 1420 MR#: [id number] Acct: [id number] Name: SUHAS ABURTO Rep #: [id number] : 1965 59 From: Baltazar Hoang MD Attending Dr: Dr. Samaria Alvarado MD Status: DIS IN Ordering Dr: Viry Barnard DO Date: 09/05/24 Location: [facility] Sex: F N Admitted: 09/05/24 Test Reason : SYNCOPE Blood Pressure : */* mmHG Vent. Rate : 71 BPM Atrial Rate : 71 BPM P-R Int : 166 ms QRS Dur : 88 ms QT Int : 392 ms P-R-T Axes : 62 -4 25 degrees QTcB Int : 425 ms Normal sinus rhythm Normal ECG Confirmed by Baltazar Hoang ([id number]), photography editor DANG MCCAIN ([id number]) on 09/08/2024 6:24:31 AM Referred By: CG Confirmed By: Baltazar Hoang 09/08/24 0624 Date Baltazar Hoang MD CC: SEAM PRESSER-C Nora Robertson; Dr. Viry Barnard DO; Dr. Samaria Alvarado MD Signed Normal [facility] Brain/Head without Contrasto n 09-05-2024 Brain/Head without Contrast [facility] Imaging Services [address] [place] [address] Brain/Head without Contrast MR#: [id number] Acct: [id number] Name: SUHAS ABURTO Rep #: [id number] : 1965 F 59 From: Bradley betancourt MD PCP: WESTON Pang Status: REG ER Study: Brain/Head without Contrast Date of Exam: 08/16 12/08 Exam# [id number] Ordering Dr: Viry Barnard DO [id number] STUDY: CT BRAIN WITHOUT CONTRAST REASON FOR [...] CC: WESTON Robertson; Dr. Viry Barnard DO Network Applications Specialist: Signed Normal [facility] CBC W/Diff, Automatedon 08-16 SMEAR COMMENT COMMENT Normal [facility] Comment on above: Result Comment: LYMP HOCYTOSIS. Performed By: #### L 500.2500, L100.0500 #### [facility] [address] [facility] [place], [place], [address] Chest 1 View (Portable)on Chest 1 View (Portable) [facility] Imaging Services [address] [place], [place] [address] Chest 1 View (Portable) MR#: [id number] Acct: [id number] Name: SUHAS ABURTO Rep #: [id number] : 1965 F 59 From: Bradley betancourt MD PCP: WESTON Pang Status: REG ER Study: Chest 1 View (Portable) Date of Exam: 09/05/24 Exam# [id number] Ordering Dr: Viry Barnard DO [id number] STUDY: X-RAY CHEST REASON FOR EXAM: Female, [...] x-ray examination of the chest. Electronically Signed: Bradley Ferrara MD at 15:08 EST Reading Location ID and State: [address] [place] [address] , Service support , CC: WESTON Robertson; Dr. Viry Barnard DO Network Applications Specialist: Signed Normal [facility] Comprehensive Metabolic Prof nmon 09-05-2024 Albumin [Mass/Vol] 3.7 g/dL Normal 3.2-5.0 [facility] Comment on above: Order Comment: 1Y Performed By: #### L 500.2500, L100.0500 #### [facility] [address] [place], [address] Albumin/Globulin [Mass ratio] 0.9 {ratio} Normal 0.9-2.4 [facility] Comment on above: Order Comment: 1Y Performed By: #### L 500.2500, L100.0500 #### [facility] [address] [place], [address] ALK P 85 U/L Normal 45-117 [facility] Comment on above: Order Comment: 1Y Performed By: #### L 500.2500, L100.0500 #### [facility] [address] [place], [address] ALT [Catalytic activity/Vol] 25 U/L Normal 13-56 [facility] Comment on above: Order Comment: 1Y Performed By: #### L 500.2500, L100.0500 #### [facility] [address] [place], [address] AST [Catalytic activity/Vol] 22 U/L Normal 15-37 [facility] Comment on above: Order Comment: 1Y Performed By: #### L 500.2500, L100.0500 #### [facility] [address] [place], [address] Bilirubin [Mass/Vol] 0.20 mg/dL Normal 0.20-1.00 [facility] Comment on above: Order Comment: 1Y Result Comment: For patients on eltrombopag therapy, use of Dimension Archie TBIL is not recommended. Performed By: #### L 500.2500, L100.0500 #### [facility] [address] [place], [address] BUN/CRE 18.1 RATIO Normal 10-20 [facility] Comment on above: Order Comment: 1Y Performed By: #### L 500.2500, L100.0500 #### [facility] [address] [place], [address] CA,Total 9.5 mg/dL Normal 8.5-10.1 [facility] Comment on above: Order Comment: 1Y Performed By: #### L 500.2500, L100.0500 #### [facility] [address] [place], [address] Chloride [Moles/Vol] 106 mmol/L Normal 98-107 [facility] Comment on above: Order Comment: 1Y Performed By: #### L 500.2500, L100.0500 #### [facility] [address] [place], [address] CO2 [Moles/Vol] 22.0 mmol/L Normal 21.0-32.0 [facility] Comment on above: Order Comment: 1Y Performed By: #### L 500.2500, L100.0500 #### [facility] [address] [place], [address] Creatinine [Mass/Vol] 0.78 mg/dL Normal 0.55-1.02 [facility] Comment on above: Order Comment: 1Y Result Comment: The validity of the calculated GFR GFRAA in patients over 70 years has not been determined. Clinical correlation is essential. Performed By: #### L 500.2500, L100.0500 #### [facility] [address] [place], [address] ECRCL 64.80 ml/min Normal [facility] Comment on above: Order Comment: 1Y Performed By: #### L 500.2500, L100.0500 #### [facility] [address] [place], [address] EST GFR - AA 98 mL/min Normal >60 [facility] Comment on above: Order Comment: 1Y Result Comment: Afri can Nicaraguan GFR Calc Performed By: #### L 500.2500, L100.0500 #### [facility] [address] [place], [address] GAP 7 Normal 5-15 [facility] Comment on above: Order Comment: 1Y Performed By: #### L 500.2500, L100.0500 #### [facility] [address] [place], [address] GFR/1.73 sq M.predicted among non-blacks MDRD (S/P/Bld) [Vol rate/Area] 81 mL/min/{1.73_m2} Normal >60 [facility] Comment on above: Order Comment: 1Y Result Comment: Non- GFR Calc Performed By: #### L 500.2500, L100.0500 #### [facility] [address] [place], [address] Globulin (S) [Mass/Vol] 4.2 g/dL Normal 2.2-4.2 [facility] Comment on above: Order Comment: 1Y Performed By: #### L 500.2500, L100.0500 #### [facility] [address] [place], [address] Glucose [Mass/Vol] 99 mg/dL Normal 74-106 [facility] Comment on above: Order Comment: 1Y Performed By: #### L 500.2500, L100.0500 #### [facility] [address] [place], [address] Potassium [Moles/Vol] 3.7 mmol/L Normal 3.5-5.1 [facility] Comment on above: Order Comment: 1Y Performed By: #### L 500.2500, L100.0500 #### [facility] [address] [place], [address] Sodium [Moles/Vol] 136 mmol/L Normal 136-145 [facility] Comment on above: Order Comment: 1Y Performed By: #### L 500.2500, L100.0500 #### [facility] [address] [place], [address] T PROT 7.9 g/dL Normal 6.4-8.2 [facility] Comment on above: Order Comment: 1Y Performed By: #### L 500.2500, L100.0500 #### [facility] [address] [place], [address] Urea nitrogen [Mass/Vol] 14 mg/dL Normal 7-18 [facility] Comment on above: Order Comment: 1Y Performed By: #### L 500.2500, L100.0500 #### [facility] [address] [place], [address] Echo Complete W/ Contraston 09-05-2024 Echo Complete W/ Contrast [facility] Cardiovascular Services [address] [place] [address] Echo Complete W/ Contrast 09/06/24 1110 MR#: [id number] Acct: [id number] Name: SUHAS ABURTO Rep #: [id number] : 1965 59 From: Max Foley MD Attending Dr: Dr. Samaria Alvraado MD Status: ADM IN Ordering Dr: Gregoria Ambrocio DO Date: 09/05/24 Location: [facility] Sex: F N Admitted: 09/05/24 Reason For [...] Dictated: 09/06/24 1110 Date Transcribed: 09/06/24 1320 Network Applications Specialist: Signed Normal [facility] Emergency Department Summary on 09-05-2024 Emergency Department Summary [facility] Medical Records Department [address] [place] [address] Emergency Department Summary 09/05/24 MR#: [id number] Acct: [id number] Name: SUHAS ABURTO Rep #: [id number] : 1965 59 From: Viry Barnard DO PCP: WESTON Pang Status:ADM IN Location: [place] [address] HPI History of Present Illness Chief Complaint: [...] complaints or concerns reported at this time. [facility] Medical History Anxiety and depression [...] EOMs inta (more content not included)... Normal [facility] H AND P Exam - Hospitaliston 09-05-2024 H&P Exam - Hospitalist [facility] Medical Records Department [address] [place] [address] H P Exam - Hospitalist 09/05/24 1828 MR#: [id number] Acct: [id number] Name: SUHAS ABURTO Rep #: [id number] : 1965 59 From: Gregoria Ambrocio DO PCP: WESTON Pang Status:ADM IN Location: [facility] [id number] HPI - General General Date of Admission: 09/05/24 Date of Service: 09/05/24 Chief Complaint: syncope HPI Narrative SUHAS ABURTO, is a 59 F who presented to the emergency department at [facility] on 09/05/2020 for due to an unresponsive episode. Patient reported that she was walking out in front of a store and was with the salesman and tripped on unlevel ground. She hit her knees and her shoulder and she stated that a store wafer cutter told her to lie on the ground [...] prudent to admit her to the hospital. [facility] Medical History Anxiety and depression Osteoarthritis [...] from eye (more content not included)... Normal [facility] HIP, UNI W/ Pelvis 2-3 Views on 09-05-2024 HIP, UNI W/ Pelvis 2-3 Views [facility] Imaging Services [address] [place] [id number] HIP, UNI W/ Pelvis 2-3 Views MR#: [id number] Acct: [id number] Name: SUHAS ABURTO Rep #: [id number] : 1965 F 59 From: Bradley betancourt MD PCP: WESTON Pang Status: REG ER Study: HIP, UNI W/ Pelvis 2-3 Views Date of Exam: Exam# [id number] Ordering Dr: Viry Barnard DO [id number] STUDY: X-RAY - PELVIS AND LEFT HIP [...] 15:07 EST Reading Location ID and State: [address] [place] [address] , Service support , CC: WESTON Robertson; Dr. Viry Barnard DO Network Applications Specialist: Signed Normal [facility] L501.4020on 09-05-2024 TROPONIN-I HS 54 pg/mL Normal 3.0-54.0 [facility] Comment on above: Order Comment: Comme nts: SPECIMEN #3'TROP' Serial specimen #1, #2 or #3: 3 Result Comment: Pleearnestine galeana Note: New Test Units and Gender Specific Reference Ranges. For more information see Policy Stat Procedure Archie High Sensitivity Troponin (TNIH) and attachments. Performed By: #### L 500.2500, L100.0500 #### [facility] [address] [place], [address] TROPONIN-I HS 94 pg/mL High 3.0-54.0 [facility] Comment on above: Result Comment: Pleearnestine se Note: New Test Units and Gender Specific Reference Ranges. For more information see Policy Stat Procedure Archie High Sensitivity Troponin (TNIH) and attachments. Performed By: #### L 500.2500, L100.0500 #### [facility] [address] [place], [address] L501.5425on 09-05-2024 TROPONIN-I HS 9 pg/mL Normal 3.0-54.0 [facility] Comment on above: Order Comment: 1Y Result Comment: Plea se Note: New Test Units and Gender Specific Reference Ranges. For more information see Policy Stat Procedure Archie High Sensitivity Troponin (TNIH) and attachments. Performed By: #### L 500.2500, L100.0500 #### [facility] [address] [place], [address] Lactic Acidon 09-05-2024 Lactate [Moles/Vol] 1.4 mmol/L Normal 0.4-1.9 [facility] Comment on above: Order Comment: Y Performed By: #### L 500.2500, L100.0500 #### [facility] [address] [place], [address] Partial Thromboplast Timeon 09-05-2024 aPTT Coag (Bld) [Time] 25.8 s Normal 24.1-36.2 [facility] Comment on above: Performed By: #### L 500.2500, L100.0500 #### [facility] [address] [place], [address] Prothrombin Time w/INRon INR Normal [facility] Comment on above: Result Comment: DUPL ICATE ORDER RAN UNDER CG31 Performed By: #### L 500.2500, L100.0500 #### [facility] [address] [place], [address] PROTIME Normal 11.7-14.9 [facility] Comment on above: Result Comment: DUPL ICATE ORDER RAN UNDER CG31 Performed By: #### L 500.2500, L100.0500 #### [facility] [address] [place], [address] INR Coag (PPP) [Relative time] 1.0 {INR} Normal [facility] Comment on above: Performed By: #### L 500.2500, L100.0500 #### [facility] [address] [place], [address] PT Coag (PPP) [Time] 12.9 s Normal 11.7-14.9 [facility] Comment on above: Performed By: #### L 500.2500, L100.0500 #### [facility] [address] [place], [address] Urinalysis, Completeon 09-05 EPI,SQUAMOUS 0-5 SEEN Normal 5-10 [facility] Comment on above: Order Comment: CLEAN CATCH Performed By: #### L 400.0001 #### [facility] [address] [place], [address] Mucus Ql (Urine sed) RARE Normal [facility] Comment on above: Order Comment: CLEAN CATCH Performed By: #### L 400.0001 #### [facility] [address] [place], [address] BACTERIA 0 SEEN Normal None Seen [facility] Comment on above: Order Comment: CLEAN CATCH Performed By: #### L 400.0001 #### [facility] [address] [place], [address] RBC 0 SEEN Normal 0-5 [facility] Comment on above: Order Comment: CLEAN CATCH Performed By: #### L 400.0001 #### [facility] [address] [place], [address] WBC 0 SEEN Normal 0-5 [facility] Comment on above: Order Comment: CLEAN CATCH Performed By: #### L 400.0001 #### [facility] [address] [place], [address] Urine Drug Screen (VISTA)on 09-05-2024 AMPHETAMINES Negative Normal <1000 ng/mL [facility] Comment on above: Performed By: #### L 500.2500, L100.0500 #### [facility] [address] [place], [address] BARBITIURATES Negative Normal < 200 ng/mL [facility] Comment on above: Performed By: #### L 500.2500, L100.0500 #### [facility] [address] [place], [address] BENZODIAZIPINE Negative Normal < 200 ng/mL [facility] Comment on above: Performed By: #### L 500.2500, L100.0500 #### [facility] [address] [place], [address] COCAINE Negative Normal < 300 ng/mL [facility] Comment on above: Performed By: #### L 500.2500, L100.0500 #### [facility] [address] [place], [address] ECSTACY Negative Normal < 500 ng/mL [facility] Comment on above: Performed By: #### L 500.2500, L100.0500 #### [facility] [address] [place], [address] METHADONE Negative Normal < 300 ng/mL [facility] Comment on above: Performed By: #### L 500.2500, L100.0500 #### [facility] [address] [place], [address] OPIATES Negative Normal < 300 ng/mL [facility] Comment on above: Performed By: #### L 500.2500, L100.0500 #### [facility] [address] [place], [address] PCP Negative Normal < 25 ng/mL [facility] Comment on above: Performed By: #### L 500.2500, L100.0500 #### [facility] [address] [place], [address] THC Negative Normal < 50 ng/mL [facility] Comment on above: Performed By: #### L 500.2500, L100.0500 #### [facility] [address] [place], [address] VISTA UDS PH 5 Normal [facility] Comment on above: Performed By: #### L 500.2500, L100.0500 #### [facility] [address] [place], [address] CNOVon 07-21-2024 CNOV Office Visit (AGFAMPLE) SUHAS ABURTO ([id number]) 1965 F Date Time Provider Department 07/21/24 9:20 AM NORA ROBERTSON During your visit today, we recorded the following information about you: Temperature Pulse Blood pressure Weight 98.4 degrees 72/minute 122/60 62.1 kg Height 1.524 m Nora Robertson APRN.STRAINER TENDER 07/21/2024 10:35 AM Signed CHIEF COMPLAINT: Suhas [...] of Onset Cancer Mother throat Heart Brother [place] Diabetes Brother Coronary Artery Disease Brother [place] Current Outpatient Medications Medication Sig Dispense Refill FLUoxetine (PROZAC) 20 mg capsule Take 1 capsule by mouth once daily. Take 1 capsule by mouth once daily 90 capsule 1 loratadine (ALLERGY RELIEF, LORATADINE,) 10 mg tablet Take 1 tablet by mouth once daily. 30 tablet 2 atenolol (TENORMIN) 25 mg tablet Take 1 tab (more content not included)... Normal [facility] Emergency Department Summary on 06-17-2024 Emergency Department Summary [facility] Medical Records Department [address] [place] [address] Emergency Department Summary 06/17/24 MR#: [id number] Acct: [id number] Name: SUHAS ABURTO Rep #: [id number] : 1965 58 From: Viry Barnard DO [...] the knee and radiates down her centeno. [facility] Medical History Anxiety and depression [...] Blood Press (more content not included)... Normal [facility] Extremity Lower without Cont raon 06-17-2024 Extremity Lower without Contra [facility] Imaging Services [address] [place] [address] Extremity Lower without Contra MR#: [id number] Acct: [id number] Name: SUHAS ABURTO Rep #: [id number] : 1965 F 58 From: Fransisco Ambrocio MD PCP: Nora Robertson NP-Ami Status: REG ER Study: Extremity Lower without Contra Date of Exam: 0 06/17/24 Exam# [id number] Ordering Dr: Viry Barnard DO [id number] STUDY: CT LEFT KNEE WITHOUT CONTRAST REASON [...] 10:21 EDT Reading Location ID and State: [facility] / [place] , Service support , CC: SEAM PRESSER-Ami Robertson; Dr. Viry Barnard DO Network Applications Specialist: Signed Normal [facility] Knee 4 or More Viewson 06-17 Knee 4 or More Views [facility] Imaging Services [address] [place] [address] Knee 4 or More Views MR#: [id number] Acct: [id number] Name: SUHAS ABURTO Rep #: [id number] : 1965 F 58 From: Fransisco Ambrocio MD PCP: WESTON Pang Status: PRE ER Study: Knee 4 or More Views Date of Exam: 06/17/24 Exam# [id number] Ordering Dr: Viry Barnard DO [id number] STUDY: X-RAY - LEFT KNEE REASON FOR [...] , CC: WESTON Robertson; Dr. Viry Barnard, Network Applications Specialist: Signed [facility] 03-30-2024 CNPN Telephone (UCWSTR) SUHAS ABURTO ([id number]) 1965 F Date Time Provider Department 03/30/24 JULISSA SOTO [facility] During your visit today, we recorded [...] of func*10/04/2010 11/16/2015 ASCUS on Pap smear [[id number]] 08/23/2011 Blood in stool [K92.1] 08/31/2011 03/24/2014 Anemia, unspecified [D64.9] 08/31/2011 06/28/2016 Iron deficiency anemia [D50.9] 09/28/2011 Neck pain [M54.2] 01/23/2013 06/28/2016 Cervicalgia [M54.2] 11/06/2013 Adjustment disorder with mixed anxiety and depr*12/29/2013 Psychic factors associated with diseases classi*12/29/2013 Sciatica [M54.30] 02/23/2015 Tension-type headache, not intractable [G44.209]01/27/2016 Abnormal mammogram [R92.8] 07/06/2017 Encounter Status:Closed by YEFRI CHESTER on 03/30/24 Normal [facility] CNOVon 03-29-2024 CNOV Office Visit (UCWSTR ) SUHAS ABURTO ([id number]) 1965 F Date Time Provider Department 03/29/24 12:30 PM JULISSA SOTO [facility] During your visit today, we recorded [...] PM Signed This note was created using [employer]. Subjective Suhas Aburto is a 58 year [...] of Onset Cancer Mother throat Heart Brother [place] Diabetes Brother Coronary Artery Disease Brother [place] Social History Tobacco Use Smoking status: Never [...] (more content not included)... Normal [facility] COVID AND INFLUENZA A/B AND RSV NAAT, ROUTINEon 03-29-2024 SARS-CoV-2 (COVID-19) RNA LILIBETH+probe Ql (Unsp spec) COVID 19 RESULT: Not detected The method used is RT-PCR or an equivalent NAAT method. Reference Range (the expected result in uninfected individuals): Not detected INFLUENZA A PCR: Not detected INFLUENZA B PCR: Not detected RSV PCR: Not detected Normal [facility] Comment on above: Performed By: #### 1 [id number] #### [facility] CLIA [id number] [address] [place] [address] [place] Absolute lymphocyte countOrd ered By: Sherry Ruperto on 09-27-2023 Lymphocytes Auto (Unsp spec) [#/Vol] 3.85 10*3/uL 0.83-4.51 [facility] Basophil percentageOrdered B y: Sherry Ruperto on 09-27-2023 Basophils/100 WBC (Bld) 1.0 % 0-1 [facility] Chloride [Moles/Vol] 110 mmol/L 98-107 [facility] Eosinophils/100 WBC (Bld) 4.3 % 0-5 [facility] Glucose [Mass/Vol] 84 mg/dL 74-106 [facility] Neutrophils (Bld) [#/Vol] 4.4 10*3/uL 2.0-7.7 [facility] Neutrophils/100 WBC (Bld) 46.4 % 47-70 [facility] Potassium [Moles/Vol] 4.0 mmol/L 3.5-5.1 [facility] Sodium [Moles/Vol] 139 mmol/L 136-145 [facility] WBC (Bld) [#/Vol] 9.5 10*3/uL 4.4-11.0 [facility] Blood erythrocytes count (nu mber/volume)Ordered By: Sherry Hickey on 09-27-2023 RBC (Bld) [#/Vol] 4.04 10*6/uL 4.2-5.4 [facility] Blood hemoglobin measurement (mass/volume)Ordered By: Sherry Hickey on 09-27-2023 Hemoglobin (Bld) [Mass/Vol] 11.1 g/dL 12.0-15.0 [facility] Blood lymphocytes/100 leukoc ytesOrdered By: Sherry Hickey on 09-27-2023 Lymphocytes/100 WBC (Bld) 40.4 % 19-41 [facility] Blood monocytes/100 leukocyt esOrdered By: Sherry Hickey on 09-27-2023 Monocytes/100 WBC (Bld) 6.7 % 0-10 [facility] Blood platelet mean volumeOr dered By: Sherry Hickey on 09-27-2023 Platelet mean volume (Bld) [Entitic vol] 9.7 fL 6.2-12.0 [facility] Determination of erythrocyte mean corpuscular volume (MCV)Ordered By: Sherry Hickey on 09-27-2023 MCV (RBC) [Entitic vol] 89.6 fL 81-99 [facility] Hematocrit Auto (Bld) [Volum e fraction]Ordered By: Sherry Hickey on 09-27-2023 Hematocrit (Bld) [Volume fraction] 36.2 % 37-47 [facility] - Chemistry and C hemistry - challengeOrdered By: Sherry Hickey on 09-27-2023 CO2 [Moles/Vol] 25.0 mmol/L 21.0-32.0 [facility] Urea nitrogen/Creatinine [Mass ratio] 18.7 mg/mg 10-20 [facility] - Hematology and Cell countsOrdered By: Sherry Hickey on 09-27-2023 Erythrocyte distribution width (RBC) [Entitic vol] 44.4 fL 35.1-43.9 [facility] Erythrocyte distribution width (RBC) [Ratio] 13.4 % 11.6-14.6 [facility] Immature granulocytes/100 WBC (Bld) 1.200 % 0.0-0.9 [facility] Comment on above: IG% - Immature Granu locytes (promyelocytes, myelocytes and metamyelocytes) > 1% indicates that a LEFT SHIFT is Present. MCH (RBC) [Entitic mass] 27.5 pg 27.0-32.0 [facility] Nucleated RBC/100 WBC (Bld) [Ratio] 0 % 0-5 [facility] MCHC Auto (RBC) [Mass/Vol]Or dered By: Sherry Hickey on 09-27-2023 MCHC (RBC) [Mass/Vol] 30.7 g/dL 32-36 [facility] No Panel InformationOrdered By: Sherry Hickey on 09-27-2023 Estimated GFR (MDRD) Amer 111 mL/min >60 [facility] Comment on above: GFR Calc Estimated GFR (MDRD) Non-Af Amer 92 mL/min >60 [facility] Comment on above: Non- GFR Calc Platelets bldOrdered By: Sharita Hickey on 09-27-2023 Platelets (Bld) [#/Vol] 388 10*3/uL 150-450 [facility] Serum heterophile antibody d etectionOrdered By: Sherry Hickey on 09-27-2023 Heterophile Ab Ql (S) Negative Negative [facility] Serum or plasma calcium pedro urement (mass/volume)Ordered By: Sherry Hickey on 09-27-2023 Calcium [Mass/Vol] 9.1 mg/dL 8.5-10.1 [facility] Serum or plasma creatinine m easurement (mass/volume)Ordered By: Sherry Hickey on 09-27-2023 Creatinine [Mass/Vol] 0.70 mg/dL 0.55-1.02 [facility] Comment on above: The validity of the calculated GFR & GFRAA in patients over 70 years has not been determined. Clinical correlation is essential. Serum or plasma urea nitroge n measurement (mass/volume)Ordered By: Sherry Hickey on 09-27-2023 Urea nitrogen [Mass/Vol] 13 mg/dL 7-18 [facility] Thin prep Papanicolaou smear with manual screeningOrdered By: Sherry Hickey on 09-27-2023 Thin prep Papanicolaou smear with manual screening 4 5-15 [facility] XR CHEST 2V FRONTAL/LATon [facility] XR Chest PA and Lateralon IMPRESSION: No acute radiographic abnormality. Network Applications Specialist: MARYLU Transcribe Date/Time: Sep 12 2023 3:49P Dictated by : JESSICA HU MD This examination was interpreted and the report reviewed and electronically signed by: JESSICA HU MD on Sep 12 2023 3:49PM [facility] DIVISION OF RADIOLOGY * * *Final Report* [...] spine. IMPRESSION IMPRESSION: No acute radiographic abnormality. Network Applications Specialist: PSCB Transcribe Date/Time: Sep 12 2023 3:49P Dictated by : JESSICA HU MD This examination was interpreted and the report reviewed and electronically signed by: JESSICA HU MD on Sep 12 2023 3:49PM EST [facility] Radiology Study observation (narrative) [facility] Chest PA and LateralOrder ed By: Ccf Provider on 09-12-2023 [facility] Absolute lymphocyte countOrd ered By: Amber Ojeda on 06-26-2023 Lymphocytes Auto (Unsp spec) [#/Vol] 4.16 10*3/uL 0.83-4.51 [facility] Basophil percentageOrdered B y: Amber Ojeda on 06-26-2023 Basophils/100 WBC (Bld) 0.7 % 0-1 [facility] Bilirubin [Mass/Vol] 0.20 mg/dL 0.20-1.00 [facility] Comment on above: For patients on eltr ombopag therapy, use of Dimension Archie TBIL is not recommended. Chloride [Moles/Vol] 110 mmol/L 98-107 [facility] Eosinophils/100 WBC (Bld) 3.2 % 0-5 [facility] Glucose [Mass/Vol] 110 mg/dL 74-106 [facility] Comment on above: Fasting Glucose resu lt from 100 to 125 mg/dL suggests IMPAIRED HOMEOSTASIS per A.D.A. criteria. Neutrophils (Bld) [#/Vol] 4.2 10*3/uL 2.0-7.7 [facility] Neutrophils/100 WBC (Bld) 44.2 % 47-70 [facility] Potassium [Moles/Vol] 4.1 mmol/L 3.5-5.1 [facility] Protein [Mass/Vol] 7.6 g/dL 6.4-8.2 [facility] Sodium [Moles/Vol] 141 mmol/L 136-145 [facility] WBC (Bld) [#/Vol] 9.6 10*3/uL 4.4-11.0 [facility] Blood erythrocytes count (nu mber/volume)Ordered By: Amber Ojeda on 06-26-2023 RBC (Bld) [#/Vol] 4.18 10*6/uL 4.2-5.4 [facility] Blood hemoglobin measurement (mass/volume)Ordered By: Amber Ojeda on 06-26-2023 Hemoglobin (Bld) [Mass/Vol] 11.6 g/dL 12.0-15.0 [facility] Blood lymphocytes/100 leukoc ytesOrdered By: Amber Ojeda on 06-26-2023 Lymphocytes/100 WBC (Bld) 43.6 % 19-41 [facility] Blood monocytes/100 leukocyt esOrdered By: Amber Ojeda on 06-26-2023 Monocytes/100 WBC (Bld) 7.4 % 0-10 [facility] Blood platelet mean volumeOr dered By: Amber Ojeda on 06-26-2023 Platelet mean volume (Bld) [Entitic vol] 9.9 fL 6.2-12.0 [facility] Determination of erythrocyte mean corpuscular volume (MCV)Ordered By: Amber Ojeda on 06-26-2023 MCV (RBC) [Entitic vol] 90.0 fL 81-99 [facility] Hematocrit Auto (Bld) [Volum e fraction]Ordered By: Amber Ojeda on 06-26-2023 Hematocrit (Bld) [Volume fraction] 37.6 % 37-47 [facility] - Chemistry and C hemistry - challengeOrdered By: Amber Ojeda on 06-26-2023 ALP [Catalytic activity/Vol] 70 U/L 45-117 [facility] ALT [Catalytic activity/Vol] 35 U/L 13-56 [facility] CO2 [Moles/Vol] 26.0 mmol/L 21.0-32.0 [facility] Globulin (S) [Mass/Vol] 4.2 g/dL 2.2-4.2 [facility] Urea nitrogen/Creatinine [Mass ratio] 15.3 mg/mg 10-20 [facility] - Hematology and Cell countsOrdered By: Amber Ojeda on 06-26-2023 Erythrocyte distribution width (RBC) [Entitic vol] 44.4 fL 35.1-43.9 [facility] Erythrocyte distribution width (RBC) [Ratio] 13.6 % 11.6-14.6 [facility] Immature granulocytes/100 WBC (Bld) 0.900 % 0.0-0.9 [facility] Comment on above: IG% - Immature Granu locytes (promyelocytes, myelocytes and metamyelocytes) > 1% indicates that a LEFT SHIFT is Present. MCH (RBC) [Entitic mass] 27.8 pg 27.0-32.0 [facility] Nucleated RBC/100 WBC (Bld) [Ratio] 0 % 0-5 [facility] MCHC Auto (RBC) [Mass/Vol]Or dered By: Amber Ojeda on 06-26-2023 MCHC (RBC) [Mass/Vol] 30.9 g/dL 32-36 [facility] No Panel InformationOrdered By: Amber Ojeda on 06-26-2023 Estimated GFR (MDRD) Amer 107 mL/min >60 [facility] Comment on above: GFR Calc Estimated GFR (MDRD) Non-Af Amer 89 mL/min >60 [facility] Comment on above: Non- GFR Calc Thyroid Stimulating Hormone (TSH) 3.49 uIU/mL 0.358-3.74 [facility] Platelets bldOrdered By: Amber Ojeda on 06-26-2023 Platelets (Bld) [#/Vol] 381 10*3/uL 150-450 [facility] Serum or plasma albumin pedro urement (mass/volume)Ordered By: Amber Ojeda on 06-26-2023 Albumin [Mass/Vol] 3.4 g/dL 3.2-5.0 [facility] Serum or plasma albumin/glob ulin mass ratioOrdered By: Amber Ojeda on 06-26-2023 Albumin/Globulin [Mass ratio] 0.8 {ratio} 0.9-2.4 [facility] Serum or plasma calcium pedro urement (mass/volume)Ordered By: Amber Ojeda on 06-26-2023 Calcium [Mass/Vol] 8.9 mg/dL 8.5-10.1 [facility] Serum or plasma creatinine m easurement (mass/volume)Ordered By: Amber Ojeda on 06-26-2023 Creatinine [Mass/Vol] 0.72 mg/dL 0.55-1.02 [facility] Comment on above: The validity of the calculated GFR & GFRAA in patients over 70 years has not been determined. Clinical correlation is essential. Serum or plasma urea nitroge n measurement (mass/volume)Ordered By: Amber Ojeda on 06-26-2023 Urea nitrogen [Mass/Vol] 11 mg/dL 7-18 [facility] Thin prep Papanicolaou smear with manual screeningOrdered By: Amber Ojeda on 06-26-2023 Thin prep Papanicolaou smear with manual screening 22 U/L 15-37 [facility] Thin prep Papanicolaou smear with manual screening 5 5-15 [facility] Absolute lymphocyte countOrd ered By: Shelia Steele on 11-16-2022 Lymphocytes Auto (Unsp spec) [#/Vol] 4.43 10*3/uL 0.83-4.51 [facility] Basophil percentageOrdered B y: Shelia Steele on 11-16-2022 Basophils/100 WBC (Bld) 1.1 % 0-1 [facility] Bilirubin [Mass/Vol] 0.30 mg/dL 0.20-1.00 [facility] Comment on above: For patients on eltr ombopag therapy, use of Dimension Archie TBIL is not recommended. Chloride [Moles/Vol] 105 mmol/L 98-107 [facility] Cholesterol [Mass/Vol] 213 mg/dL <200 [facility] Comment on above: <200 mg/dL Desirable 200-240 mg/dL Borderline >240 mg/dL High Risk Eosinophils/100 WBC (Bld) 3.0 % 0-5 [facility] Glucose [Mass/Vol] 99 mg/dL 74-106 [facility] Neutrophils (Bld) [#/Vol] 4.8 10*3/uL 2.0-7.7 [facility] Neutrophils/100 WBC (Bld) 46.1 % 47-70 [facility] Potassium [Moles/Vol] 4.4 mmol/L 3.5-5.1 [facility] Protein [Mass/Vol] 7.8 g/dL 6.4-8.2 [facility] Sodium [Moles/Vol] 140 mmol/L 136-145 [facility] Triglyceride [Mass/Vol] 264 mg/dL <199 [facility] Comment on above: The drugs N-Acetylcy steine and Metamizole may falsely depress this assay.Serum Triglycerides Reference Interval Normal <150 mg/dL Borderline high 150 - 199 mg/dL High 200 - 499 mg/dL Very High > or = 500 mg/dL WBC (Bld) [#/Vol] 10.4 10*3/uL 4.4-11.0 [facility] Blood erythrocytes count (nu mber/volume)Ordered By: Shelia Steele on 11-16-2022 RBC (Bld) [#/Vol] 4.35 10*6/uL 4.2-5.4 [facility] Blood hemoglobin measurement (mass/volume)Ordered By: Shelia Steele on 11-16-2022 Hemoglobin (Bld) [Mass/Vol] 12.2 g/dL 12.0-15.0 [facility] Blood lymphocytes/100 leukoc ytesOrdered By: Shelia Steele on 11-16-2022 Lymphocytes/100 WBC (Bld) 42.6 % 19-41 [facility] Blood monocytes/100 leukocyt esOrdered By: Shelia Steele on 11-16-2022 Monocytes/100 WBC (Bld) 6.7 % 0-10 [facility] Blood platelet mean volumeOr dered By: Shelia Steele on 11-16-2022 Platelet mean volume (Bld) [Entitic vol] 9.3 fL 6.2-12.0 [facility] Determination of erythrocyte mean corpuscular volume (MCV)Ordered By: Shelia Steele on 11-16-2022 MCV (RBC) [Entitic vol] 88.7 fL 81-99 [facility] Hematocrit Auto (Bld) [Volum e fraction]Ordered By: Shelia Steele on 11-16-2022 Hematocrit (Bld) [Volume fraction] 38.6 % 37-47 [facility] - Chemistry and C hemistry - challengeOrdered By: Shelia Steele on 11-16-2022 ALP [Catalytic activity/Vol] 71 U/L 45-117 [facility] ALT [Catalytic activity/Vol] 36 U/L 13-56 [facility] CO2 [Moles/Vol] 30.0 mmol/L 21.0-32.0 [facility] Globulin (S) [Mass/Vol] 4.1 g/dL 2.2-4.2 [facility] Magnesium [Mass/Vol] 2.0 mg/dL 1.6-2.6 [facility] Urea nitrogen/Creatinine [Mass ratio] 24.4 mg/mg 10-20 [facility] - Hematology and Cell countsOrdered By: Shelia Steele on 11-16-2022 Erythrocyte distribution width (RBC) [Entitic vol] 43.0 fL 35.1-43.9 [facility] Erythrocyte distribution width (RBC) [Ratio] 13.2 % 11.6-14.6 [facility] Immature granulocytes/100 WBC (Bld) 0.500 % 0.0-0.9 [facility] Comment on above: IG% - Immature Granu locytes (promyelocytes, myelocytes and metamyelocytes) > 1% indicates that a LEFT SHIFT is Present. MCH (RBC) [Entitic mass] 28.0 pg 27.0-32.0 [facility] Nucleated RBC/100 WBC (Bld) [Ratio] 0 % 0-5 [facility] MCHC Auto (RBC) [Mass/Vol]Or dered By: Shelia Steele on 11-16-2022 MCHC (RBC) [Mass/Vol] 31.6 g/dL 32-36 [facility] No Panel InformationOrdered By: Shelia Steele on 11-16-2022 Estimated GFR (MDRD) Amer 104 mL/min >60 [facility] Comment on above: GFR Calc Estimated GFR (MDRD) Non-Af Amer 86 mL/min >60 [facility] Comment on above: Non- GFR Calc Thyroid Stimulating Hormone (TSH) 1.72 uIU/mL 0.358-3.74 [facility] Vitamin B12 Level > 2000 pg/mL 211-911 [facility] Platelets bldOrdered By: Maribeth Steele on 11-16-2022 Platelets (Bld) [#/Vol] 396 10*3/uL 150-450 [facility] Serum or plasma albumin pedro urement (mass/volume)Ordered By: Shelia Steele on 11-16-2022 Albumin [Mass/Vol] 3.7 g/dL 3.2-5.0 [facility] Serum or plasma albumin/glob ulin mass ratioOrdered By: Shelia Steele on 11-16-2022 Albumin/Globulin [Mass ratio] 0.9 {ratio} 0.9-2.4 [facility] Serum or plasma calcium pedro urement (mass/volume)Ordered By: Shelia Steele on 11-16-2022 Calcium [Mass/Vol] 9.4 mg/dL 8.5-10.1 [facility] Serum or plasma cholesterol in HDL measurement (mass/volume)Ordered By: Shelia Steele on 11-16-2022 Cholesterol in HDL [Mass/Vol] 39 mg/dL >40 [facility] Comment on above: The drugs N-Acetylcy steine and Metamizole may falsely depress this assay. Reference Range HDL <40 mg/dL Low HDL Cholesterol HDL >or= 60 mg/dL High HDL Cholesterol Serum or plasma cholesterol in VLDL measurement (mass/volume)Ordered By: Shelia Steele on 11-16-2022 Cholesterol in VLDL [Mass/Vol] 53 mg/dL 5-40 [facility] Serum or plasma creatinine m easurement (mass/volume)Ordered By: Shelia Steele on 11-16-2022 Creatinine [Mass/Vol] 0.74 mg/dL 0.55-1.02 [facility] Comment on above: The validity of the calculated GFR & GFRAA in patients over 70 years has not been determined. Clinical correlation is essential. Serum or plasma low density lipoprotein (LDL) cholesterol measurement (mass/volume)Ordered By: Shelia Steele on 11-16-2022 Cholesterol in LDL [Mass/Vol] 121 mg/dL 0-130 [facility] Serum or plasma urea nitroge n measurement (mass/volume)Ordered By: Shelia Steele on 11-16-2022 Urea nitrogen [Mass/Vol] 18 mg/dL 7-18 [facility] Thin prep Papanicolaou smear with manual screeningOrdered By: Shelia Steele on 11-16-2022 Thin prep Papanicolaou smear with manual screening 27 U/L 15-37 [facility] Thin prep Papanicolaou smear with manual screening 5 5-15 [facility] Whole blood hemoglobin A1c/t otal hemoglobin ratio (mass fraction)Ordered By: Shelia Steele on 11-16-2022 HbA1c (Bld) [Mass fraction] 5.7 % 3.8-5.6 [facility] Comment on above: Normal < 5.7 % Predi abetic 5.7 - 6.4 % Diabetic >or= 6.5 % Please note range changes. Laboratory - Microbiology an d Antimicrobial susceptibilityon 10-10-2022 SARS-CoV-2 (COVID-19) RNA LILIBETH+probe Ql (Unsp spec) Not detected [facility] No Panel Informationon 10-10 Influenza Types A,B Rapid (Clinic) Not detected [facility] Vital Signs Date Time Vital Sign Value Performing Clinician Facility 05-27-2025 23:09-0400 Body temperature 98.1 [degF] Dr. Edgar Doss DO Work Phone: [facility] 05-27-2025 23:09-0400 Diastolic blood pressure 78 mm[Hg] Dr. Edgar Lima Work Phone: [facility] 05-27-2025 23:09-0400 Heart rate 97 /min Dr. Edgar Lima Work Phone: [facility] 05-27-2025 23:09-0400 Respiratory rate 16 /min Dr. Edgar Lima Work Phone: [facility] 05-27-2025 23:09-0400 SaO2% (BldA) [Mass fraction] 98 % Dr. Edgar Lima Work Phone: [facility] 05-27-2025 23:09-0400 Systolic blood pressure 166 mm[Hg] Dr. Edgar Lima Work Phone: [facility] 05-27-2025 19:23-0400 Body height 152.[address] Edgar Doss DO Work Phone: [facility] 05-27-2025 19:23-0400 Body mass index (BMI) [Ratio] 28 kg/m2 Dr. Edgar Doss DO Work Phone: [facility] 05-27-2025 19:23-0400 Body weight [address] Edgar Doss DO Work Phone: [facility] 02-24-2025 14:29-0400 Diastolic blood pressure 80 mm[Hg] 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STRAINER TENDER Work Phone: [facility] 02-24-2025 14:29-0400 Systolic blood pressure 132 mm[Hg] 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STRAINER TENDER Work Phone: [facility] 02-24-2025 14:08-0400 Body height 152.4 cm 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STRAINER TENDER Work Phone: [facility] 02-24-2025 14:08-0400 Body mass index (BMI) [Ratio] 26.76 kg/m2 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STRAINER TENDER Work Phone: [facility] 02-24-2025 14:08-0400 Body temperature 98.01 [degF] 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STRAINER TENDER Work Phone: [facility] 02-24-2025 14:08-0400 Body weight 62.14 kg 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STRAINER TENDER Work Phone: [facility] 02-24-2025 14:08-0400 Heart rate 63 /min 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STRAINER TENDER Work Phone: [facility] 02-24-2025 14:08-0400 Respiratory rate 18 /min 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STRAINER TENDER Work Phone: [facility] 02-24-2025 14:08-0400 SaO2% (BldA) [Mass fraction] 99 % 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STRAINER TENDER Work Phone: [facility] 02-18-2025 15:47-0400 Body mass index (BMI) [Ratio] 26.78 kg/m2 Krislyn Aberegg PA Work Phone: [facility] 02-18-2025 15:47-0400 Body temperature 97.11 [degF] Krislyn Aberegg PA Work Phone: [facility] 02-18-2025 15:47-0400 Body weight 62.2 kg Krislyn Aberegg PA Work Phone: [facility] 02-18-2025 15:47-0400 Diastolic blood pressure 80 mm[Hg] Krislyn Aberegg PA Work Phone: [facility] 02-18-2025 15:47-0400 Heart rate 64 /min Krislyn Aberegg PA Work Phone: [facility] 02-18-2025 15:47-0400 Respiratory rate 18 /min Krislyn Aberegg PA Work Phone: [facility] 02-18-2025 15:47-0400 SaO2% (BldA) [Mass fraction] 96 % Krislyn Aberegg PA Work Phone: [facility] 02-18-2025 15:47-0400 Systolic blood pressure 128 mm[Hg] Krislyn Aberegg PA Work Phone: [facility] 11-12-2024 10:00-0500 Body mass index (BMI) [Ratio] 26.95 kg/m2 Yandel Clutter PA-C Work Phone: [facility] 11-12-2024 10:00-0500 Body temperature 99.5 [degF] Yandel Clutter PA-C Work Phone: [facility] 11-12-2024 10:00-0500 Body weight 62.6 kg Yandel Clutter PA-C Work Phone: [facility] 11-12-2024 10:00-0500 Diastolic blood pressure 80 mm[Hg] Yandel Clutter PA-C Work Phone: [facility] 11-12-2024 10:00-0500 Heart rate 85 /min Yandel Clutter PA-C Work Phone: [facility] 11-12-2024 10:00-0500 Respiratory rate 20 /min Yandel Clutter PA-C Work Phone: [facility] 11-12-2024 10:00-0500 SaO2% (BldA) [Mass fraction] 98 % Yandel Clutter PA-C Work Phone: [facility] 11-12-2024 10:00-0500 Systolic blood pressure 122 mm[Hg] Yandel Clutter PA-C Work Phone: [facility] 09-18-2024 15:37-0500 Body height 152.4 cm 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STRAINER TENDER Work Phone: [facility] 09-18-2024 15:37-0500 Body mass index (BMI) [Ratio] 27.05 kg/m2 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STRAINER TENDER Work Phone: [facility] 09-18-2024 15:37-0500 Body temperature 98.1 [degF] 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STRAINER TENDER Work Phone: [facility] 09-18-2024 15:37-0500 Body weight 62.82 kg 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STRAINER TENDER Work Phone: [facility] 09-18-2024 15:37-0500 Diastolic blood pressure 68 mm[Hg] 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STRAINER TENDER Work Phone: [facility] 09-18-2024 15:37-0500 Heart rate 70 /min 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STRAINER TENDER Work Phone: [facility] 09-18-2024 15:37-0500 Respiratory rate 16 /min 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STRAINER TENDER Work Phone: [facility] 09-18-2024 15:37-0500 SaO2% (BldA) [Mass fraction] 99 % 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STRAINER TENDER Work Phone: [facility] 09-18-2024 15:37-0500 Systolic blood pressure 116 mm[Hg] 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: [facility] 07-21-2024 09:05-0400 Body height 152.4 cm 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STRAINER TENDER Work Phone: [facility] 07-21-2024 09:05-0400 Body mass index (BMI) [Ratio] 26.76 kg/m2 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: [facility] 07-21-2024 09:05-0400 Body temperature 98.4 [degF] 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: [facility] 07-21-2024 09:05-0400 Body weight 62.14 kg 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: [facility] 07-21-2024 09:05-0400 Diastolic blood pressure 60 mm[Hg] 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: [facility] 07-21-2024 09:05-0400 Heart rate 72 /min 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: [facility] 07-21-2024 09:05-0400 SaO2% (BldA) [Mass fraction] 98 % 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: [facility] 07-21-2024 09:05-0400 Systolic blood pressure 122 mm[Hg] 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: [facility] 03-29-2024 12:23-0400 Body mass index (BMI) [Ratio] 26.39 kg/m2 Julissa MORRISON Work Phone: [facility] 03-29-2024 12:23-0400 Body temperature 98.4 [degF] Krislyn Aberegg PA Work Phone: [facility] 03-29-2024 12:23-0400 Body weight 61.3 kg Krislyn Aberegg PA Work Phone: [facility] 03-29-2024 12:23-0400 Diastolic blood pressure 93 mm[Hg] Krislyn Aberegg PA Work Phone: [facility] 03-29-2024 12:23-0400 Heart rate 75 /min Krislyn Aberegg PA Work Phone: [facility] 03-29-2024 12:23-0400 Respiratory rate 18 /min Krislyn Aberegg PA Work Phone: [facility] 03-29-2024 12:23-0400 SaO2% (BldA) [Mass fraction] 100 % Krislyn Aberegg PA Work Phone: [facility] 03-29-2024 12:23-0400 Systolic blood pressure 154 mm[Hg] Krislyn Aberegg PA Work Phone: [facility] 02-21-2024 10:29-0400 Body height 152.4 cm Nora Cochranden LABORER DRIVER.STRAINER TENDER Work Phone: [facility] 02-21-2024 10:29-0400 Body mass index (BMI) [Ratio] 26.95 kg/m2 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STRAINER TENDER Work Phone: [facility] 02-21-2024 10:29-0400 Body temperature 98.01 [degF] 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STRAINER TENDER Work Phone: [facility] 02-21-2024 10:29-0400 Body weight 62.6 kg 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STRAINER TENDER Work Phone: [facility] 02-21-2024 10:29-0400 Diastolic blood pressure 70 mm[Hg] 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STRAINER TENDER Work Phone: [facility] 02-21-2024 10:29-0400 Heart rate 82 /min 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STRAINER TENDER Work Phone: [facility] 02-21-2024 10:29-0400 Respiratory rate 16 /min 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STRAINER TENDER Work Phone: [facility] 02-21-2024 10:29-0400 SaO2% (BldA) [Mass fraction] 98 % 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STRAINER TENDER Work Phone: [facility] 02-21-2024 10:29-0400 Systolic blood pressure 122 mm[Hg] 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STRAINER TENDER Work Phone: [facility] 02-05-2024 16:35-0400 Body mass index (BMI) [Ratio] 28.01 kg/m2 Krislyn Aberegg PA Work Phone: [facility] 02-05-2024 16:35-0400 Body temperature 97.2 [degF] Krislyn Aberegg PA Work Phone: [facility] 02-05-2024 16:35-0400 Body weight 62.9 kg Krislyn Aberegg PA Work Phone: [facility] 02-05-2024 16:35-0400 Diastolic blood pressure 76 mm[Hg] Krislyn Aberegg PA Work Phone: [facility] 02-05-2024 16:35-0400 Heart rate 79 /min Krislyn Aberegg PA Work Phone: [facility] 02-05-2024 16:35-0400 Respiratory rate 18 /min Krislyn Aberegg PA Work Phone: [facility] 02-05-2024 16:35-0400 SaO2% (BldA) [Mass fraction] 96 % Krislyn Aberegg PA Work Phone: [facility] 02-05-2024 16:35-0400 Systolic blood pressure 126 mm[Hg] Krislyn Aberegg PA Work Phone: [facility] 01-08-2024 13:23-0400 Body height 152.4 cm [facility] 01-08-2024 13:23-0400 Body temperature 97.3 [degF] [facility] 01-08-2024 13:23-0400 Diastolic blood pressure 77 mm[Hg] [facility] 01-08-2024 13:23-0400 Heart rate 72 /min [facility] 01-08-2024 13:23-0400 Respiratory rate 14 /min [facility] 01-08-2024 13:23-0400 SaO2% (BldA) [Mass fraction] 100 % [facility] 01-08-2024 13:23-0400 Systolic blood pressure 153 mm[Hg] [facility] 09-12-2023 15:26-0500 Body temperature 97.5 [degF] Krislyn Aberegg PA Work Phone: [facility] 09-12-2023 15:26-0500 Body weight 63.41 kg Krislyn Aberegg PA Work Phone: [facility] 09-12-2023 15:26-0500 Diastolic blood pressure 82 mm[Hg] Krislyn Aberegg PA Work Phone: [facility] 09-12-2023 15:26-0500 Heart rate 61 /min Krislyn Aberegg PA Work Phone: [facility] 09-12-2023 15:26-0500 Respiratory rate 18 /min Krislyn Aberegg PA Work Phone: [facility] 09-12-2023 15:26-0500 SaO2% (BldA) [Mass fraction] 99 % Krislyn Aberegg PA Work Phone: [facility] 09-12-2023 15:26-0500 Systolic blood pressure 138 mm[Hg] Krislyn Aberegg PA Work Phone: [facility] 11-13-2023 12:00-0500 Body temperature 97.59 [degF] Julian Miguel MD Work Phone: [facility] 08-27-2023 12:00-0500 Body weight 64.77 kg Julian Miguel MD Work Phone: [facility] 08-27-2023 12:00-0500 Diastolic blood pressure 78 mm[Hg] Julian Miguel MD Work Phone: [facility] 08-27-2023 12:00-0500 Heart rate 79 /min Julian Miguel MD Work Phone: [facility] 08-27-2023 12:00-0500 Respiratory rate 18 /min Julian Miguel MD Work Phone: [facility] 08-27-2023 12:00-0500 SaO2% (BldA) [Mass fraction] 97 % Julian Miguel MD Work Phone: [facility] 08-27-2023 12:00-0500 Systolic blood pressure 151 mm[Hg] Julian Miguel MD Work Phone: [facility] 02-23-2023 12:24-0400 Body temperature 97.81 [degF] Meera Praisler-Wood LABORER DRIVER.STRAINER TENDER Work Phone: [facility] 02-23-2023 12:24-0400 Body weight 62.69 kg Meera Praisler-Wood LABORER DRIVER.STRAINER TENDER Work Phone: [facility] 02-23-2023 12:24-0400 Diastolic blood pressure 80 mm[Hg] Meera Praisler-Wood LABORER DRIVER.STRAINER TENDER Work Phone: [facility] 02-23-2023 12:24-0400 Heart rate 67 /min Meera Praisler-Wood LABORER DRIVER.STRAINER TENDER Work Phone: [facility] 02-23-2023 12:24-0400 Respiratory rate 16 /min Meera Praisler-Wood LABORER DRIVER.STRAINER TENDER Work Phone: [facility] 02-23-2023 12:24-0400 SaO2% (BldA) [Mass fraction] 99 % Meera WongvamsiShikhaMassimo LABORER DRIVER.STRAINER TENDER Work Phone: [facility] 02-23-2023 12:24-0400 Systolic blood pressure 122 mm[Hg] Meera Thierno HOGAN.STRAINER TENDER Work Phone: [facility] 02-02-2023 09:32-0400 Body height 152.4 cm DO Sheliaasha Sennger Work Phone: [facility] 02-02-2023 09:32-0400 Body mass index (BMI) [Ratio] 27.3 kg/m2 DO Shelia Cedric Work Phone: [facility] 02-02-2023 09:32-0400 Body temperature 97.6 [degF] DO Shelia Cedric Work Phone: [facility] 02-02-2023 09:32-0400 Body weight 63.5 kg DO Shelia Cedric Work Phone: [facility] 02-02-2023 09:32-0400 Diastolic blood pressure 76 mm[Hg] DO Shelia Cedric Work Phone: [facility] 02-02-2023 09:32-0400 Heart rate 73 /min DO Shelia Cedric Work Phone: [facility] 02-02-2023 09:32-0400 Respiratory rate 18 /min DO Shelia Cedric Work Phone: [facility] 02-02-2023 09:32-0400 SaO2% (BldA) [Mass fraction] 97 % DO Shelia Cedric Work Phone: [facility] 02-02-2023 09:32-0400 Systolic blood pressure 138 mm[Hg] DO Shelia Cedric Work Phone: [facility] 01-14-2023 12:32-0400 Body mass index (BMI) [Ratio] 27.5 kg/m2 DO Shelia Cedric Work Phone: [facility] 01-14-2023 12:32-0400 Body temperature 97.7 [degF] DO Sheliaasha Sennger Work Phone: [facility] 01-14-2023 12:32-0400 Body weight 63.95 kg DO Shelia Cedric Work Phone: [facility] 01-14-2023 12:32-0400 Diastolic blood pressure 78 mm[Hg] DO Shelia Cedric Work Phone: [facility] 01-14-2023 12:32-0400 Heart rate 81 /min DO Shelia Cedric Work Phone: [facility] 01-14-2023 12:32-0400 Respiratory rate 20 /min DO Shelia Cedric Work Phone: [facility] 01-14-2023 12:32-0400 SaO2% (BldA) [Mass fraction] 99 % DO Shelia Cedric Work Phone: [facility] 01-14-2023 12:32-0400 Systolic blood pressure 130 mm[Hg] DO Shelia Sennger Work Phone: [facility] 11-14-2022 17:10-0500 Body temperature 96.91 [degF] Meera Praisler-Wood LABORER DRIVER.STRAINER TENDER Work Phone: [facility] 11-14-2022 17:10-0500 Body weight 63.32 kg Meera Praisler-Wood LABORER DRIVER.STRAINER TENDER Work Phone: [facility] 11-14-2022 17:10-0500 Diastolic blood pressure 88 mm[Hg] Meera Praisler-Wood LABORER DRIVER.STRAINER TENDER Work Phone: [facility] 11-14-2022 17:10-0500 Heart rate 76 /min Meera Praisler-Wood LABORER DRIVER.STRAINER TENDER Work Phone: [facility] 11-14-2022 17:10-0500 Respiratory rate 16 /min Meera Praisler-Wood LABORER DRIVER.STRAINER TENDER Work Phone: [facility] 11-14-2022 17:10-0500 SaO2% (BldA) [Mass fraction] 97 % Meera Pa LABORER DRIVER.STRAINER TENDER Work Phone: [facility] 11-14-2022 17:10-0500 Systolic blood pressure 138 mm[Hg] Meera Pa LABORER DRIVER.STRAINER TENDER Work Phone: [facility] 10-10-2022 15:04-0500 Body temperature 98.2 [degF] Dr. María Marion Work Phone: [facility] 10-10-2022 15:04-0500 Diastolic blood pressure 70 mm[Hg] Dr. María Marion Work Phone: [facility] 10-10-2022 15:04-0500 Heart rate 82 /min Dr. María Marion Work Phone: [facility] 10-10-2022 15:04-0500 Respiratory rate 18 /min Dr. María Marion Work Phone: [facility] 10-10-2022 15:04-0500 SaO2% (BldA) [Mass fraction] 99 % Dr. María Marion Work Phone: [facility] 10-10-2022 15:04-0500 Systolic blood pressure 104 mm[Hg] Dr. María Marion Work Phone: [facility] Encounters Encounter Date Encounter Type Care Provider Facility Start: 06-01-2025 End: 06-01-2025 ambulatory Nora Robertson LABORER DRIVER.STRAINER TENDER Work Phone: [facility] Start: 06-01-2025 End: 06-01-2025 Follow-up encounter Nora Robertson LABORER DRIVER.STRAINER TENDER Work Phone: [facility] Comment on above: ED Follow-up ([facility] 05/27/2025) Start: 05-27-2025 End: 05-27-2025 Emergency department patient visit Dr. Edgar Le DO Work Phone: -Emergency Department Work Phone: Start: 03-19-2025 End: 03-19-2025 Telephone encounter Jessica June DO Work Phone: [facility] Comment on above: Appointment (Schedul ing) Start: 03-16-2025 End: 03-17-2025 Follow-up encounter Nora Robertson APRN.STRAINER TENDER Work Phone: [facility] Comment on above: Results Start: 03-16-2025 End: 03-16-2025 Telephone encounter Clara Mariee MD Work Phone: [facility] Comment on above: Appointment (EMG Ref erral) Start: 02-25-2025 End: 02-25-2025 ambulatory [facility] Facility:[facility] Start: 02-24-2025 End: 02-24-2025 Patient encounter procedure Nora Robertson APRN.STRAINER TENDER Work Phone: [facility] Comment on above: Essential hypertensi on (Primary [...] colon cancer Start: 02-24-2025 End: 02-24-2025 ambulatory [facility] Facility:[facility] Start: 02-18-2025 End: 02-18-2025 Subsequent hospital visit by physician Diego [facility] Britany Work Phone: Radiology Comment on above: Foot pain, right [M7 9.671] Start: 02-18-2025 End: 02-18-2025 Patient encounter procedure Julissa MORRISON Work Phone: [facility] Comment on above: Foot pain, right (Pr imary Dx) Start: 02-18-2025 End: 02-18-2025 ambulatory [facility] Facility:[facility] Start: 11-19-2024 End: 11-19-2024 Refill Nora A Marcelo LABORER DRIVER.STRAINER TENDER Work Phone: [facility] Comment on above: Refill Request Start: 11-14-2024 End: 11-14-2024 Telephone encounter Monique Toro LABORER DRIVER.STRAINER TENDER Work Phone: [facility] Comment on above: Results Start: 11-12-2024 End: 11-12-2024 ambulatory NORAJACKIE ROBERTSON Facility:[facility] Start: 11-12-2024 End: 11-12-2024 Office outpatient visit 25 minutes Yandel De La Rosa PA-C Work Phone: [facility] Comment on above: Painful urination (P rimary Dx); Acute UTI Start: 10-16-2024 End: 10-16-2024 ambulatory Nora Robertson SEAM PRESSER Facility:[facility] Start: 09-24-2024 End: 09-24-2024 Telephone encounter Nora Earnestine Marcelo LABORER DRIVER.STRAINER TENDER Work Phone: [facility] Comment on above: Results Start: 09-18-2024 End: 09-18-2024 ambulatory NORAJACKIE ROBERTSON Facility:[facility] Start: 09-18-2024 End: 09-18-2024 Patient encounter procedure Nora A Marcelo LABORER DRIVER.STRAINER TENDER Work Phone: [facility] Comment on above: Well woman exam with routine gynecological exam (Primary Dx); Upper back pain; Screening for cervical cancer; Screening for colon cancer Start: 09-06-2024 ambulatory Nora Dimasden SEAM PRESSER Facil ity:[facility] Start: 09-05-2024 End: 09-05-2024 ambulatory Baltazar Hoang Facility:[facility] Start: 09-05-2024 ambulatory Nora Dimasden SEAM PRESSER Facil ity:[facility] Start: 09-05-2024 End: 09-06-2024 Evaluation and management of inpatient Gregoria Ambrocio Facility:[facility] Start: 07-21-2024 End: 07-21-2024 Patient encounter procedure Nora Robertson LABORER DRIVER.STRAINER TENDER Work Phone: [facility] Comment on above: Moderate episode of recurrent major depressive disorder (HCC) (Primary Dx); Essential hypertension; Chronic pain of left knee; Primary osteoarthritis of left knee; Vitamin D deficiency; Encounter for immunization; Colon cancer screening Start: 07-21-2024 End: 07-21-2024 ambulatory NORA ROBERTSON Facility:[facility] Start: 07-09-2024 End: 07-09-2024 Refill Nora Robertson LABORER DRIVER.STRAINER TENDER Work Phone: [facility] Comment on above: Refill Request Start: 06-24-2024 End: 06-24-2024 ambulatory Chayito Norris [facility] Comment on above: ED OUTREACH (ED OUTR VIRAL/BRITANY /06/17/2024) Start: 06-17-2024 End: 06-17-2024 Emergency department patient visit Nora Robertson SEAM PRESSER Facility:[facility] Start: 05-30-2024 Telephone encounter Nora Robertson APRN.STRAINER TENDER Work Phone: [facility] Comment on above: Lab Orders Start: 04-01-2024 ambulatory Beatrice Montoyaser HIDE COOKING OPERATOR [facility] Start: 03-30-2024 ambulatory Lata Friend LPN NURSE O N CALL Comment on above: Return Provider Call Start: 03-30-2024 Telephone encounter Julissa MORRISON Work Phone: [facility] Comment on above: Results Start: 03-29-2024 End: 03-29-2024 ambulatory NORA ROBERTSON Facility:[facility] Start: 03-29-2024 End: 03-29-2024 Patient encounter procedure Julissa MORRISON Work Phone: [facility] Comment on above: Viral illness (Prima ry Dx) Start: 02-27-2024 Telephone encounter Nora Robertson LABORER DRIVER.STRAINER TENDER Work Phone: [facility] Comment on above: Results Start: 02-21-2024 End: 02-21-2024 Patient encounter procedure Nora Robertson APRN.STRAINER TENDER Work Phone: [facility] Comment on above: Well adult exam (Lenka chayito Dx); Essential hypertension; Mild episode of recurrent major depressive disorder (HCC); Vitamin D deficiency; Fatigue, unspecified type; History of iron deficiency; Screening for lipid disorders; Screening for thyroid disorder; Screening for colon cancer; Encounter for screening mammogram for breast cancer Start: 02-21-2024 End: 02-21-2024 Patient encounter status Nora Earnestine Robertson APRN.STRAINER TENDER Work Phone: [facility] Work Phone: Start: 02-18-2024 End: 02-18-2024 Patient encounter procedure Holli Alfaro MD Work Phone: [facility] Comment on above: Blurred vision, bila teral (Primary Dx); Refractive error; Pseudophakia; Dry eye syndrome, bilateral Start: 02-05-2024 End: 02-05-2024 Patient encounter procedure Julissa MORRISON Work Phone: [facility] Comment on above: Bacterial sinusitis (Primary Dx); Fatigue, unspecified type Start: 01-08-2024 End: 01-08-2024 Emergency department patient visit [facility] Work Phone: Start: 09-27-2023 End: 09-27-2023 ambulatory [facility] Work Phone: Start: 09-27-2023 End: 09-27-2023 Patient encounter procedure [facility] Start: 09-12-2023 End: 09-12-2023 Subsequent hospital visit by physician [facility] Work Phone: Radiology Comment on above: Acute cough [R05.1] Start: 09-12-2023 End: 09-12-2023 Patient encounter procedure Julissa MORRISON Work Phone: [facility] Comment on above: Acute cough (Primary Dx); Bacterial sinusitis Start: 08-28-2023 Telephone encounter Anibal calderón APRN.STRAINER TENDER Work Phone: [facility] Comment on above: Results Start: 08-27-2023 End: 08-27-2023 Patient encounter procedure Julian Miguel MD Work Phone: [facility] Comment on above: URI, acute (Primary Dx) Start: 07-19-2023 End: 07-19-2023 Patient encounter procedure [facility] Work Phone: Start: 06-26-2023 End: 06-26-2023 ambulatory [facility] Work Phone: Start: 06-26-2023 End: 06-26-2023 Patient encounter procedure [facility] Start: 02-23-2023 End: 02-23-2023 Patient encounter procedure Meera Pa APRN.STRAINER TENDER Work Phone: [facility] Comment on above: Rash (Primary Dx) Start: 02-02-2023 End: 02-02-2023 Patient encounter procedure DO Shelia Steele Work Phone: [facility] Start: 01-14-2023 End: 01-14-2023 Patient encounter procedure DO Shelia Steele Work Phone: [facility] Start: 11-30-2022 End: 11-30-2022 ambulatory DO Shelia Steele Work Phone: [facility] Work Phone: Start: 11-30-2022 End: 11-30-2022 Discharged Recurring DO Shelia Steele Work Phone: [facility]Physical Therapy Start: 11-23-[address] María Marion Work Phone: [facility] Start: 11-16-2022 End: 11-16-[address] María Marion Work Phone: [facility] Work Phone: Start: 11-16-2022 End: 11-16-[address] María Marion Work Phone: [facility] Start: 11-14-2022 End: 11-14-2022 Patient encounter procedure Meera Pa LABORER DRIVER.STRAINER TENDER Work Phone: [facility] Comment on above: Arthritis pain (Prim malathi Dx); Essential hypertension Start: 10-10-2022 End: 10-10-[address] María Marion Work Phone: [facility] Start: 09-22-2022 End: 09-22-[address] María Marion Work Phone: [facility] Start: 09-13-2022 End: 09-13-[address] María Marion Work Phone: [facility] Start: 08-30-2022 End: 08-30-[address] María Marion Work Phone: [facility] Start: 08-28-2022 End: 08-28-[address] María Marion Work Phone: [facility] Procedures Date Procedure Procedure Detail [...] - S maverick or Plasma Nora Robertson APRN.[employer] Work Phone: Start: 02-18-2025 Radex foot complete minimum 3 views Julissa MORRISON Work Phone: Start: 11-12-2024 Urnls dip stick/tabl et rgnt auto w/o microscopy Lynsey Aburto LABORER DRIVER.STRAINER TENDER Work Phone: Start: 02-22-2024 Lipid 1996 panel - S maverick or Plasma Nora Robertson APRN.STRAINER TENDER Work Phone: Start: 09-12-2023 Radiologic exam ches t 2 views Julissa MORRISON Work Phone: Start: 07-19-2023 Plain X-ray of shoulder Start: 08-28-2022 Radiologic examinati on of knee Dr. María Marion Work Phone: Start: 06-29-2017 Mammography Meera Mendez APRN.[employer] Work Phone: Start: 05-02-2016 Lipid 1996 panel - S maverick or Plasma Julian Miguel MD Work Phone: Start: 09-04-2011 Colonoscopy Meera Mendez APRN.[employer] Work Phone: Plan of Treatment Date Care Activity Detail Author Start: 04-01-2030 Urine microalbumin profile DTaP,Tdap,Td Vaccine (3 - Td or Tdap) [facility] Start: 02-25-2030 Lipid panel Lipid Screening [facility] Start: 09-18-2029 Screening for malign ant neoplasm of cervix Cervical Cancer Screening [facility] Start: 02-21-2029 Lipid panel Lipid Screening [facility] Start: 02-26-2028 Diabetes Screening Diabetes Screenin g [facility] Start: 02-21-2027 Diabetes Screening Diabetes Screenin g [facility] Start: 02-24-2026 Annual PCP Team Research Nutritionist zeke Disease Visit Annual PCP Team Chronic Disease Visit [facility] Start: 02-24-2026 HIV screening HIV Screening [facility] Comment on above: Postponed from 06/22 (Declined at this time) Start: 09-18-2025 Annual PCP Team Research Nutritionist zeke Disease Visit Annual PCP Team Chronic Disease Visit [facility] Start: 09-18-2025 BP Controlled (<130/80) BP Controlle d (<130/80) [facility] Start: 07-21-2025 Annual PCP Team Research Nutritionist zeke Disease Visit Annual PCP Team Chronic Disease Visit [facility] Start: 07-21-2025 Anxiety Screening Anxiety Screening [facility] Comment on above: Postponed from 06/22 (Declined at this time) Start: 07-21-2025 BP Controlled (<130/80) BP Controlle d (<130/80) [facility] Start: 07-21-2025 Covid-19 Vaccine () Covid-19 Vaccine () [facility] Comment on above: Postponed from 06/15 (Declined at this time) Start: 06-15-2025 Influenza vaccination Influenza Vacc ine (#1) [facility] Start: 05-27-2025 End: 05-27-2025 [facility] Start: 02-24-2025 End: 02-24-2025 Patient encounter procedure 02/24/2025 2:00 PM EDT Office Visit [facility] [address] [place] [address] Nora Robertson, LABORER DRIVER.[employer] [address] [place] [address] Concerns of falling, abnormal blood work, and other medical concerns [facility] Comment on above: Concerns of falling, abnormal blood work, and other medical concerns Start: 02-20-2025 Annual PCP Team Research Nutritionist zeke Disease Visit Annual PCP Team Chronic Disease Visit [facility] Start: 02-20-2025 BP Controlled (<130/80) BP Controlle d (<130/80) [facility] Start: 02-20-2025 Covid-19 Vaccine () Covid-19 Vaccine () [facility] Comment on above: Postponed from 06/15 (Declined at this time) Start: 02-20-2025 HIV screening HIV Screening [facility] Comment on above: Postponed from 06/22 (Declined at this time) Start: 02-04-2025 BP Controlled (<130/80) BP Controlle d (<130/80) [facility] Start: 08-25-2024 End: 08-25-2024 Patient encounter procedure 08/25/2024 10:40 AM EST Office Visit [facility] [address] [place] [address] Nora Robertson APRN.STRAINER TENDER [address] [place] [address] 6 MTH F/U HYPERLIPIDEMIA AND HTN [facility] Comment on above: 6 MTH F/U HYPERLIPID EMIA AND HTN Start: 07-21-2024 End: 07-21-2024 Patient encounter procedure 07/21/2024 9:20 AM EDT Office Visit [facility] [address], [place] [id number] Nora Robertson, LABORER DRIVER.STRAINER TENDER [address] [place] [address] med refill [facility] Comment on above: med refill Start: 06-15-2024 Covid-19 Vaccine ( season) Covid-19 Vaccine ( season) [facility] Start: 06-15-2024 Covid-19 Vaccine ( season) Covid-19 Vaccine ( season) [facility] Start: 06-15-2024 Influenza vaccination [facility] Start: 03-29-2024 End: 04-12-2024 COVID & INFLUENZA A/B & RSV NAAT, ROUTINE COVID & INFLUENZA A/B & RSV NAAT, ROUTINE Microbiology Routine Viral illness Expected: 03/29/2024, Expires: 04/12/2024 [facility] Work Phone: Comment on above: Expected: 03/29/2024 , Expires: 04/12/2024 Start: 02-21-2024 End: 08-08-2024 25-hydroxyvitamin D3 [Mass/volume] in Serum or Plasma VITAMIN D 25 HYDROXY Lab Routine Well adult exam Fatigue, unspecified type Vitamin D deficiency Expected: 02/21/2024, Expires: 05/22/2024 [facility] Comment on above: Expected: 02/21/2024 , Expires: 05/22/2024 Start: 02-21-2024 End: 05-22-2024 CBC W Auto Differential panel - Blood COMPLETE BLOOD COUNT AND DIFFERENTIAL Lab Routine Well adult exam History of iron deficiency Fatigue, unspecified type Expected: 02/21/2024, Expires: 05/22/2024 [facility] Comment on above: Expected: 02/21/2024 , Expires: 05/22/2024 Start: 02-21-2024 End: 05-22-2024 Comprehensive metabolic 2000 panel - Serum or Plasma COMPREHENSIVE METABOLIC PANEL Lab Routine Well adult exam Expected: 02/21/2024, Expires: 05/22/2024 [facility] Comment on above: Expected: 02/21/2024 , Expires: 05/22/2024 Start: 02-21-2024 End: 05-22-2024 Hemoglobin A1c in Blood HEMOGLOBIN A1C Lab Routine Well adult exam Expected: 02/21/2024, Expires: 05/22/2024 [facility] Comment on above: Expected: 02/21/2024 , Expires: 05/22/2024 Start: 02-21-2024 End: 05-22-2024 Lipid 1996 panel - Serum or Plasma LIPID PANEL BASIC Lab Routine Well adult exam Screening for lipid disorders Expected: 02/21/2024, Expires: 05/22/2024 [facility] Work Phone: Comment on above: Expected: 02/21/2024 , Expires: 05/22/2024 Start: 02-21-2024 End: 05-22-2024 Thyrotropin [Units/volume] in Serum or Plasma THYROID STIMULATING HORMONE Lab Routine Well adult exam Screening for thyroid disorder Expected: 02/21/2024, Expires: 05/22/2024 [facility] Comment on above: Expected: 02/21/2024 , Expires: 05/22/2024 Start: 02-21-2024 End: 02-21-2024 Patient encounter procedure 02/21/2024 10:40 AM EDT Office Visit [facility] [address] [place] [address] Nora Robertson APRN.STRAINER TENDER [address] [place] [address] new pt [facility] Comment on above: new pt Start: 01-08-2024 [facility] Start: 08-27-2023 End: 09-10-2023 Influenza virus A and B RNA and SARS-CoV-2 (COVID-19) N gene panel - Respiratory specimen by LILIBETH with probe detection [facility] Work Phone: Comment on above: Expected: 08/27/2023 , Expires: 09/10/2023 Start: 06-15-2023 Covid-19 Vaccine ( season) Covid-19 Vaccine () [facility] Start: 06-15-2023 Influenza vaccination C [facility] Start: 08-28-2022 Patient referral [facility] Work Phone: Start: 06-15-2022 Influenza vaccination INFLUENZA (#1) [facility] Start: 06-12-2022 Urine microalbumin profile DTAP,TDAP,TD (2 - Td or Tdap) [facility] Start: 11-14-2021 COVID-19 VACCINE (4 - Booster for Pfizer series) COVID-19 VACCINE (4 - Booster for Pfizer series) [facility] Start: 09-04-2021 Colonoscopy COLONOSCOPY [facility] Start: 09-04-2021 COLORECTAL CANCER SCREENING COLORECTAL CANCER SCREENING [facility] Start: 09-04-2021 Screening for malign ant neoplasm of colon [facility] Start: 05-02-2021 Lipid 1996 panel - S maverick or Plasma Lipid Screening [facility] Start: 05-02-2021 Lipid panel Lipid Screening [facility] Start: 05-02-2021 LIPID SCREEN LIPID SCREEN [facility] Start: 05-02-2019 DIABETES SCREEN DIABETES SCREEN [facility] Start: 05-02-2019 Diabetes Screening Diabetes Screenin g [facility] Start: 02-19-2019 ANNUAL PCP TEAM HEAD OPERATOR SULFIDE ZEKE DISEASE VISIT ANNUAL PCP TEAM CHRONIC DISEASE VISIT [facility] Start: 06-29-2018 Mammography [facility] Start: 06-29-2018 Screening for malign ant neoplasm of breast Mammogram Screening [facility] Start: 11-11-2017 PAP TESTING PAP TESTING [facility] Start: 11-11-2017 Screening for malign ant neoplasm of cervix [facility] Start: 08-08-2016 HPV TESTING HPV TESTING [facility] Start: 08-08-2016 Screening for malign ant neoplasm of cervix HPV Testing [facility] Start: 2015 Pneumococcal Vaccine : 50+ (1 of 1 - PCV) Pneumococcal Vaccine: 50+ (1 of 1 - PCV) [facility] Start: 2015 SHINGRIX VACCINE (1 of 2) CENTENO GRIX VACCINE (1 of 2) [facility] Start: 06-20-2013 FECAL OCCULT BLOOD FECAL OCCULT BLOO D [facility] Start: 06-20-2013 Screening for malign ant neoplasm of colon Fecal Occult Blood [facility] Start: 2010 COLOGUARD (FIT-DNA) COLOGUARD (FIT-D NA) [facility] Start: [address] COLONOGRAPHY [facility] Start: 2010 Screening for malign ant neoplasm of colon [facility] Start: 2010 SIGMOIDOSCOPY SIGMOIDOSCOPY [facility] Start: 1984 Hepatitis B Vaccine (1 of 3 - 19+ 3-dose series) Hepatitis B Vaccine (1 of 3 - 19+ 3-dose series) [facility] Start: 1983 ANNUAL PCP TEAM HEAD OPERATOR SULFIDE ZEKE DISEASE VISIT ANNUAL PCP TEAM CHRONIC DISEASE VISIT [facility] Start: 1983 Anxiety Screening Anxiety Screening [facility] Start: 1983 BP CONTROLLED (<130/80) BP CONTROLLE D (<130/80) [facility] Start: 1983 HIV SCREENING HIV SCREENING [facility] Start: 1983 HIV screening HIV Screening [facility] Start: 1965 HEPATITIS B (1 of 3 - 3-dose series) HEPATITIS B (1 of 3 - 3-dose series) [facility] Start: 1965 Hepatitis B Vaccine (1 of 3 - 3-dose series) Hepatitis B Vaccine (1 of 3 - 3-dose series) [facility] Bacteria identified in Urine by Culture BACTERIAL CULTURE, URINE Microbiology Routine Acute UTI Ordered: 11/12/2024 [facility] Work Phone: Comment on above: Ordered: 11/12/2024 End: 03-26-2026 DBT Breast - bilateral screening DOUG SCREENING [facility] Routine Encounter for screening mammogram for malignant neoplasm of breast 1 Occurrences starting 02/24/2025 until 03/26/2026 [facility] Comment on above: 1 Occurrences starti ng 02/24/2025 until 03/26/2026 End: 02-24-2026 EMG(NEURO/NI) EMG(NEURO/NI) EMG Routine Numbness and tingling in left hand 1 Occurrences starting 02/24/2025 until 02/24/2026 [facility] Work Phone: Comment on above: 1 Occurrences starti ng 02/24/2025 until 02/24/2026 HIGH RISK HUMAN ANA LLOMA VIRUS (HPV), PCR FOR DETECTION AND GENOTYPING HIGH RISK HUMAN PAPILLOMA VIRUS (HPV), PCR FOR DETECTION AND GENOTYPING Lab Routine Screening for cervical cancer 09/18/2024 4:04 PM [facility] Im adm prq id subq/i m njxs 1 vaccine IMADM PRQ ID SUBQ/IM NJXS 1 VACC Immunization/Injection Routine Encounter for immunization Ordered: 07/21/2024 [facility] Work Phone: Comment on above: Ordered: 07/21/2024 End: 03-22-2025 MG Breast Screening DOUG SCREENING Radiology Routine Encounter for screening mammogram for breast cancer 1 Occurrences starting 02/21/2024 until 03/22/2025 [facility] Comment on above: 1 Occurrences starti ng 02/21/2024 until 03/22/2025 PAP TEST PAP TEST Lab Rou mariza Screening for cervical cancer 09/18/2024 4:04 PM [facility] Work Phone: Patient Education [facility] Work Phone: Patient referral [facility] Work Phone: Polysomnography [facility] Immunizations Immunization Date Immunization Notes Care Provider Fa sylvesterty 07-21-2024 influenza, seasonal, injectable Nora Robertson LABORER DRIVER.STRAINER TENDER Work Phone: [facility] 07-21-2024 influenza virus vaccine, unspecified formulation 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STRAINER TENDER Work Phone: [facility] 09-19-2021 Covid (Moderna) Dr. María talamantes Work Phone: [facility] 09-19-2021 influenza, injectabl e, quadrivalent, preservative free [facility] 09-19-2021 influenza, seasonal, injectable Dr. María Marion Work Phone: [facility] 09-19-2021 influenza virus vaccine, unspecified formulation Julian Miguel MD Work Phone: [facility] 01-26-2021 Covid (Pfizer) Dr. María barrett Work Phone: [facility] 01-05-2021 Covid (Pfizer) Dr. María barrett Work Phone: [facility] 2020 influenza, injectabl e, quadrivalent, contains preservative 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STRAINER TENDER Work Phone: [facility] 04-01-2020 tetanus toxoid, redu yanet diphtheria toxoid, and acellular pertussis vaccine, adsorbed Dr. María Marion Work Phone: [facility] 06-10-2019 influenza, injectabl e, quadrivalent, contains preservative 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STRAINER TENDER Work Phone: [facility] 07-17-[address] María Marion Work Phone: [facility] 07-11-2018 influenza, injectabl e, quadrivalent, preservative free 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STRAINER TENDER Work Phone: [facility] 05-21-[address] María Marion Work Phone: [facility] 07-07-2016 influenza, injectabl e, quadrivalent, contains preservative Meera Pa LABORER DRIVER.STRAINER TENDER Work Phone: [facility] 08-17-2014 influenza, seasonal, injectable Meeraapple Pa LABORER DRIVER.STRAINER TENDER Work Phone: [facility] 09-26-2013 influenza virus vaccine, unspecified formulation Meera WongDayana LABORER DRIVER.STRAINER TENDER Work Phone: [facility] 06-12-2012 tetanus toxoid, redu yanet diphtheria toxoid, and acellular pertussis vaccine, adsorbed Meera Pa LABORER DRIVER.STRAINER TENDER Work Phone: [facility] Work Phone: 10-18-2011 influenza virus vaccine, unspecified formulation Meeraapple Pa LABORER DRIVER.STRAINER TENDER Work Phone: [facility] 10-27-2010 influenza virus vaccine, unspecified formulation Meera JimEllie LABORER DRIVER.STRAINER TENDER Work Phone: [facility] Payers Date Payer Category Payer Self-pay [id number] 2017 Medicaid [id number] Unknown [facility] [employer] [id number] Unknown [id number] Unknown [id number] [id number] Unknown [id number] 2.16.8 [id number] Unknown [id number] 2.16.8 [id number] Unknown [id number] 2.16.8 [id number] Unknown [id number] 2.16.8 [id number] Unknown [id number] 2.16.8 [id number] Unknown [id number] 2.16.8 [id number] Unknown [id number] 2.16.8 [id number] Unknown [id number] [id number] Social History Date Type Detail Facility Start: 05-27-2025 Tobacco smoking stat us PAIS Never smoked tobacco [facility] Work Phone: Start: 11-14-2022 End: 02-18-2025 Alcohol intake Current non-drinker of alcohol (finding) [facility] Start: 1965 Sex Assigned At Not on file [facility] Start: 10-10-2022 End: 01-08-2024 Tobacco smoking status PAIS Unknown if ever smoked [facility] Start: 1965 Sex Assigned At Female W [facility] Start: 08-27-2023 End: 07-21-2024 History of Social function [facility] Start: 08-27-2023 End: 07-21-2024 Tobacco use panel [facility] Start: 09-15-2012 Adult Depression Screening Assessment 2 [facility] Start: 02-24-2025 End: 03-16-2025 Alcoholic beverage intake Lifetime non-drinker (finding) [facility] Functional Status Date Assessment Result Facility 03-26-2015 Are you deaf, or do you have serious difficulty hearing No 03/26/2015 9:53 AM Lata Hernandez RN No [facility] 03-26-2015 Are you blind, or do you have serious difficulty seeing, even when wearing glasses No 03/26/2015 9:53 AM Lata Hernandez RN No [facility] 03-26-2015 Do you have serious difficulty walking or climbing stairs No 03/26/2015 9:53 AM Lata Hernandez RN No [facility] 03-26-2015 Do you have difficul ty dressing or bathing No 03/26/2015 9:53 AM Lata Hernandez RN No [facility] 03-26-2015 Because of a physica l, mental, or emotional condition, do you have difficulty doing errands alone such as visiting a physician's office or shopping No 03/26/2015 9:53 AM EDT Lata Trujillo RN No [facility] Mental Status Date Assessment Result Facility 05-27-2025 Cognitive function Voice/Name [facility] Work Phone: 01-08-2024 Cognitive function Level Of Cons ciousness Awake;Alert;Appropriate;Fol lows Commands [facility] Work Phone: 03-26-2015 Because of a physica l, mental, or emotional condition, do you have serious difficulty concentrating, remembering, or making decisions No 03/26/2015 9:53 AM EDLata Messer RN No [facility] Clinical Notes 01-23-2013 to 06-01-2025 Beatrice Ewing LPN - 06/01/2025 10:49 AM EDTTelephone Encounter - Shawanda Dai - 03/19/2025 2:27 PM EDTTelephone Encounter - Shawanda Dai - 03/19/2025 2:27 PM EDTPatient Instructions Note Date & Type Note Facility 06-01-2025 Note HNO ID: [id number] Author: BEATRICE EWING LPN Service: ? Author [...] seen in the Emergency Department (ED) Location: [facility] Date: 05/27/2025 Reason for ED Visit: Accidental marijuana overdose ED Intervention: chest xray [facility] EKG New Medications: None Medication Changes: None Does patient understand medication changes: N/A Can patient afford medication changes: N/A Patient educated on worsening symptoms and when and where to seek additional care: No Patient Education Provided including treatment plan and new orders. Patient provided with appropriate counseling: Yes [facility] 06-01-2025 History of Presen t illness Narrative [...] seen in the Emergency Department (ED) Location: [place] Date: 05/27/2025 Reason for ED Visit: Accidental [...] appropriate counseling: Yes documented in this encounter [facility] 06-01-2025 Note Patient Outreach (AG FAMPLE) SUHAS ABURTO ([id number]) 1965 F Date Time Provider Department 06/01/25 [...] seen in the Emergency Department (ED) Location: [place] Date: 05/27/2025 Reason for ED Visit: Accidental [...] Date Reviewed: 03/16/2025 Reviewed by: Nora Robertson APRN.STRAINER TENDER - Fully Assessed Reason for Visit: ED [...] of func*10/04/2010 11/16/2015 ASCUS on Pap smear [[id number]] 08/23/2011 Blood in stool [K92.1] 08/31/2011 03/24/2014 Anemia, unspecified [D64.9] 08/31/2011 06/28/2016 Iron deficiency anemia [D50.9] 09/28/2011 Neck pain [M54.2] 01/23/2013 06/28/2016 Cervicalgia [M54.2] 11/06/2013 Adjustment disorder with mixed anxiety and depr*12/29/2013 Psychic factors associated with diseases classi*12/29/2013 Sciatica [M54.30] 02/23/2015 Tension-type headache, not intractable [G44.209]01/27/2016 Abnormal mammogram [R92.8] 07/06/2017 Encounter Status:Closed by BEATRICE EWING on 06/01/25 [facility] 05-27-2025 Radiology Diagnostic study note [facility] Imaging Services [address] [place] [address] Chest 1 View (Portable) MR#: [id number] Acct: [id number] Name: SUHAS ABURTO Rep #: [id number] : 1965 F 59 From: Massimo Beth MD PCP: [facility] Pang Status: REG E R Study:Chest 1 View (Portable) Date of Exam: 05/27/25 Exam# [id number] Ordering Dr: Edgar Doss DO PROCEDURE: CHEST 1 VIEW (PORTABLE) 05/27/2025 REASON FOR EXAM: NEAR SYNCOPE TECHNIQUE: Frontal view of the chest. COMPARISON: None available. FINDINGS: Hardware: None. Heart: The heart size is normal. Lungs: The lungs are clear. Bones: The bones are unremarkable. RAD/Chest 1 View (Portable) IMPRESSION: No Acute Findings. [facility] CC: SEAM PRESSER-C Nora Robertson; Dr. Edgar Doss DO ~ Network Applications Specialist: Signed [facility] 03-19-2025 Telephone encounter Note LM re: scheduling EMG Upper Left Shawanda Dai [facility] 03-19-2025 Miscellaneous Notes LM re: scheduling EMG Upper Left Shawanda Dai documented in this encounter [facility] 03-17-2025 Telephone encounter Note Patient informed of results and recommendations. Bebe Lopez MA [facility] 03-17-2025 Telephone encounter Note ----- Message from Nora Robertson APRN.STRAINER TENDER sent at 03/16/2025 5:24 PM EDT ----- Vitamin D, TSH, CMP, and B12 were all normal. A1C was 5.8- just in prediabetic range Lipid panel was elevated- LDL was high at 147. Work on low fat diet. [facility] 03-17-2025 Miscellaneous Notes Patient informed of results and recommendations. Bebe Lopez MA ----- Message from Nora Robertson APRN.STRAINER TENDER sent at 03/16/2025 5:24 PM EDT ----- Vitamin D, TSH, CMP, and B12 were all normal. A1C was 5.8- just in prediabetic range Lipid panel was elevated- LDL was high at 147. Work on low fat diet. documented in this encounter [facility] 03-16-2025 Telephone encounter Note Left message attempting to schedule [facility] 03-16-2025 Miscellaneous Notes Left message attempting to schedule documented in this encounter [facility] 02-24-2025 Note HNO ID: [id number] Author: NORA ROBERTSON APRN.STRAINER TENDER Service: ? Author Type: Nurse Practitioner Type: Progress Notes Filed: 03/01/2025 14:23 Note Text: CHIEF COMPLAINT: Suhas is a 59-year-old female presenting for medication refills, with additional complaints of foot pain and hand numbness. I reviewed past medical, surgical, social, and family histories today and updated chart. Allergies, chronic medications, and supplements were also reviewed. Recording using DocSea software for draft documentation of the visit was discussed with the patient/authorized account manager sales representative; all questions welcomed and answered. Patient/authorized account manager sales representative agreed to proceed Medication Refills: - Out of refills for vitamin D, atenolol, Prozac, and Claritin. Foot Pain: - Recent foot pain after pulling weeds; described as knots in the feet. - Pain has resolved; x-ray at [facility] showed no fractures. - Difficulty putting pressure on the foot; used Tylenol, [place], and ice packs for relief. - Denies [...] of Onset Cancer Mother throat Heart Brother [place] Diabetes Brother Coronary Artery Disease Brother [place] Current Outpatient Medications Medication Sig Dispense Refill [...] UA (POCT) 0 (more content not included)... [facility] 02-24-2025 History of Presen t illness Narrative CHIEF COMPLAINT: Suhas is a 59-year-old female presenting for medication refills, with additional complaints of foot pain and hand numbness. I reviewed past medical, surgical, social, and family histories today and updated chart. Allergies, chronic medications, and supplements were also reviewed. Recording using DocSea software for draft documentation of the visit was discussed with the patient/authorized account manager sales representative; all questions welcomed and answered. Patient/authorized account manager sales representative agreed to proceed Medication Refills: - Out of refills for vitamin D, atenolol, Prozac, and Claritin. Foot Pain: - Recent foot pain after pulling weeds; described as knots in the feet. - Pain has resolved; x-ray at [facility] showed no fractures. - Difficulty putting pressure on the foot; used Tylenol, [place], and ice packs for relief. - Denies [...] of Onset Cancer Mother throat Heart Brother NH Diabetes Brother Coronary Artery Disease Brother NH Current Outpatient Medications Medication Sig Dispense Refill [...] rolling ankle while pulling weeds; x-ray at [facility] showed no fractures. - Pain has resolved [...] screening mammogram. - Patient to schedule at [facility]. 12. Screening for colon cancer (Z12.11) - Referred to Dr. Bland for colonoscopy. - Patient to schedule appointment at [facility] New medication(s) prescribed today: None. Counseling completed in adopting health behaviors such as avoiding excessive alcohol use, avoid tobacco use, improve nutrition, and engage in physical activities. Copy of written care plan, clinical summary, treatment plan, new medications, goals, and self management requirements were given to patient. Nora Robertson APRN.STRAINER TENDER documented in this encounter [facility] 05-07-2025 Instructions Julissa Soto PA - 02/18/2025 [...] when lying down. documented in this encounter [facility] 02-18-2025 History of Presen t illness [...] PATIENT PRESENTS WITH AN IMPLANTABLE OR ATTACHED ACCOUNTANT BOOKKEEPER: No RADIOLOGY DEPARTMENT: General X-ray: Exam(s) Completed: Lower Extremity X-Ray(s): Foot, Right PERIPHERAL IV DATA: Not applicable SIGNED BY: RT Samuel(Susu) February 18, 2025 3:55 PM documented in this encounter [facility] 02-18-2025 Note HNO ID: [id number] Author: NGOC ROSE RT(R) Service: Radiology Author [...] PATIENT PRESENTS WITH AN IMPLANTABLE OR ATTACHED ACCOUNTANT BOOKKEEPER: No RADIOLOGY DEPARTMENT: General X-ray: Exam(s) Completed: Lower Extremity X-Ray(s): Foot, Right PERIPHERAL IV DATA: Not applicable SIGNED BY: RT Samuel(R) February 18, 2025 3:55 PM [facility] 02-18-2025 Note HNO ID: [id number] Author: JULISSA SOTO PA Service: ? Author Type: Physician Machinist General Type: Progress Notes Filed: 02/18/2025 16:28 Note [...] discharged. OTC Medications were advised: Tylenol/Motrin Procedures [facility] 02-18-2025 History of Presen t illness [...] advised: Tylenol/Motrin Procedures documented in this encounter [facility] 11-19-2024 Telephone encounter Note pharmacy electronically requesting refills as follows: Last seen 09/18/24 . Last refill 07/21/24 . Requested Prescriptions Pending Prescriptions Disp Refills ALLERGY RELIEF, LORATADINE, 10 mg tablet [Pharmacy Med Name: EQ All Day Allergy Relief 10 MG Oral Tablet] 30 tablet 0 Sig: Take 1 tablet by mouth once daily Please review and advise. Bebe Lopez MA [facility] 11-19-2024 Miscellaneous Notes pharmacy electronically requesting refills as follows: Last seen 09/18/24 . Last refill 07/21/24 . Requested Prescriptions Pending Prescriptions Disp Refills ALLERGY RELIEF, LORATADINE, 10 mg tablet [Pharmacy Med Name: EQ All Day Allergy Relief 10 MG Oral Tablet] 30 tablet 0 Sig: Take 1 tablet by mouth once daily Please review and advise. Bebe Lopez MA documented in this encounter [facility] 11-14-2024 Telephone encounter Note Pt returned call and given provider's message below with verbalized understanding. Patient agreeable. [facility] 11-14-2024 Miscellaneous Notes Pt returned call and given provider's message below with verbalized understanding. Patient agreeable. TC no answer. Left VM to return call. NAVID Agustin ----- Message from Monique Toro APRN.STRAINER TENDER sent at 11/14/2024 2:45 PM EST ----- Please inform patient that the urine culture did show infection. The antibiotic that was prescribed is appropriate. They should continue to take the antibiotic as directed and follow-up with their PCP. documented in this encounter [facility] 11-14-2024 Telephone encounter Note TC no answer. Left VM to return call. NAVID Agustin [facility] 11-14-2024 Telephone encounter Note ----- Message from Monique Toro APRN.STRAINER TENDER sent at 11/14/2024 2:45 PM EST ----- Please inform patient that the urine culture did show infection. The antibiotic that was prescribed is appropriate. They should continue to take the antibiotic as directed and follow-up with their PCP. [facility] 11-12-2024 Note HNO ID: [id number] Author: YANDEL DE LA ROSA PA-C Service: ? Author Type: Physician Machinist General Type: Progress Notes Filed: 11/12/2024 10:17 Note Text: This note was created using KneoWorldriter. Subjective Suhas Aburto is a 59 year [...] MG CAPSULE Yandel De La Rosa PA-C [facility] 11-12-2024 History of Presen t illness Narrative This note was created using eBIZ.mobility. Subjective Suhas Aburto is a 59 year [...] La Rosa PA-C documented in this encounter [facility] 09-24-2024 Telephone encounter Note Max on pt. Vm with all information. Chayito Norris MA [facility] 09-24-2024 Miscellaneous Notes Max on pt. Vm with all information. Chayito Norris MA ----- Message from Nora Robertson APRN.STRAINER TENDER sent at 09/24/2024 1:38 PM EST ----- Pap and HPV were both negative. She does not need to repeat it in 5 years. documented in this encounter [facility] 09-24-2024 Telephone encounter Note ----- Message from Nora Robertosn APRN.STRAINER TENDER sent at 09/24/2024 1:38 PM EST ----- Pap and HPV were both negative. She does not need to repeat it in 5 years. [facility] 09-18-2024 Instructions Nora Robertson APRN.CNP - 09/18/2024 4:[address] Elizabeth Bland [facility]) [address] [place], [place] [id number] Appointment:[phone] documented in this encounter [facility] 09-18-2024 Note HNO ID: [id number] Author: NORA ROBERTSON APRN.CNP Service: ? Author Type: Nurse Practitioner Type: Progress Notes Filed: 09/21/2024 20:11 Note Text: [place] [address] Date of Evaluation: 09/18/2024 Patient Name: Suhas Aburto : 1965 Chief Complaint: Patient presents with: 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 Subjective Ms. Aburto is a 59 [...] Night sweats: No Will be seeing a sexton helper in [place] after recent ER visit to [place] after she fell and hit her head [...] of Onset Cancer Mother throat Heart Brother NH Diabetes Brother Coronary Artery Disease Brother [place] Social History Tobacco Use Smoking status: Never [...] present. No erythema, tenderness or bleeding. Comments: Patient Service Rep offered. Switched to small speculum due to [...] and time. Data Reviewed: Outside chart from [place] reviewed. ASSESSMENT/PLAN: 1. Well woman exam with routine gynecological exam - ICD9: V72.31, ICD10: Z01.419 (primary diagnosis (more content not included)... [facility] 09-18-2024 History of Presen t illness Narrative Images from the original [place] [address] Date of Evaluation: 09/18/2024 Patient Name: Suhas Aburto : 1965 Chief Complaint: Patient presents with: 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 Subjective Ms. Aburto is a 59 [...] Night sweats: No Will be seeing a sexton helper in [place] after recent ER visit to [place] after she fell and hit her head [...] of Onset Cancer Mother throat Heart Brother NH Diabetes Brother Coronary Artery Disease Brother [place] Social History Tobacco Use Smoking status: Never [...] present. No erythema, tenderness or bleeding. Comments: Patient Service Rep offered. Switched to small speculum due to [...] and time. Data Reviewed: Outside chart from [place] reviewed. ASSESSMENT/PLAN: 1. Well woman exam with routine gynecological exam - ICD9: V72.31, ICD10: Z01.419 (primary diagnosis) Annual Gynecologic Examination Well Woman Exam Annual Breast Exam - Completed pelvic and breast exam - Completed pap exam - Encouraged monthly BSE - Increase calcium intake with supplements or by diet (goal of 2140-5470 mg/day - Follow up for annual exam [...] Nora Robertson APRN.CNP documented in this encounter [facility] 09-06-2024 Note [facility] Medical Records Department [address] [place] [address] Discharge Summary 09/06/24 1602 MR#: [id number] Acct: [id number] Name: SUHAS ABURTO Rep #: [id number] : 1965 59 From: Samaria Alvarado MD PCP: WESTON Pang Status:ADM IN Location: [facility] [id number] Providers Date of Admission: 09/05/24 Date of [...] who presented to the emergency department at [facility] on 09/05/2020 for due to an unresponsive episode. Patient reported that she was walking out in front of a store and was with the salesman and tripped on unlevel ground. She hit her knees and her shoulder and she stated that a store wafer cutter told her to lie on the ground [...] / Microbiology Data (more content not included)... [facility] 07-21-2024 Nurse Note Pt. Given regular dose flu with no complaints. Vis given. Chayito Norris MA [facility] 07-21-2024 Nurse Note Pt. Given regular dose flu with no complaints. Vis given. Chayito Norris MA documented in this encounter [facility] 07-21-2024 Instructions Nora Robertson APRN.CNP - 07/21/2024 9:26 AM EDT Emilie Negro PA-C Orthopaedic Surgery [facility] ([facility]) [address] [place] [address] Appointment:[phone] documented in this encounter [facility] 07-21-2024 Note HNO ID: [id number] Author: NORA ROBERTSON APRN.STRAINER TENDER Service: ? Author Type: Nurse Practitioner Type: [...] of Onset Cancer Mother throat Heart Brother NH Diabetes Brother Coronary Artery Disease Brother NH Current Outpatient Medications Medication Sig Dispense Refill [...] fatigue and unexpected (more content not included)... [facility] 07-21-2024 History of Presen t illness [...] of Onset Cancer Mother throat Heart Brother NH Diabetes Brother Coronary Artery Disease Brother NH Current Outpatient Medications Medication Sig Dispense Refill [...] Abs Lymph 1.00 - 4.00 k/uL 3.96 [place]% % 7.5 Abs [place] <0.87 k/uL 0.68 Eosin% % 4.7 Abs [...] requirements were given to patient. Nora Robertson APRN.STRAINER TENDER documented in this encounter [facility] 07-09-2024 Telephone encounter Note Patient requesting [...] Please review and advise. Melissa Schmidt MA [facility] 07-09-2024 Miscellaneous Notes Patient requesting refills [...] Melissa Schmidt MA documented in this encounter [facility] 06-24-2024 Note HNO ID: [id number] Author: CHAYITO NORRIS MA Service: ? Author Type: Direct Mail Manager Type: Progress Notes Filed: 06/24/2024 08:32 Note Text: ED Follow Up: Patient discharged from [facility] ED on 06/17/2024. 1. How are [...] you able to contact the office or salesperson men's and boys' clothing provider prior to your ED visit? Not applicable 5. Is there anything else I can do for you today? Not applicable LM ON PT. VM TO CONTACT OFFICE IF SHE NEEDS ANYTHING OR WOULD LIKE A ER FOLLOW UP. Chayito Norris MA [facility] 06-24-2024 History of Presen t illness Narrative ED Follow Up: Patient discharged from [facility] ED on 06/17/2024. 1. How are [...] you able to contact the office or salesperson men's and boys' clothing provider prior to your ED visit? Not applicable 5. Is there anything else I can do for you today? Not applicable LM ON PT. VM TO CONTACT OFFICE IF SHE NEEDS ANYTHING OR WOULD LIKE A ER FOLLOW UP. Chayito Norris MA documented in this encounter [facility] 06-24-2024 Note Patient Outreach (AMANDA ABARCA) SUHAS ABURTO ([id number]) 1965 F Date Time Provider Department 06/24/24 CHAYITO NORRIS During your visit today, we recorded the following information about you: Chayito Norris MA 06/24/2024 8:32 AM Signed ED Follow Up: Patient discharged from [facility] ED on 06/17/2024. 1. How are [...] you able to contact the office or salesperson men's and boys' clothing provider prior to your ED visit? Not [...] Visit: ED OUTREACH [Other] Cmt: ED OUTREACH [facility] 06/17/2024 Prescriptions as of 06/24/2024 - atenolol [...] of func*10/04/2010 11/16/2015 ASCUS on Pap smear [BAU1291] 08/23/2011 Blood in stool [K92.1] 08/31/2011 03/24/2014 Anemia, unspecified [D64.9] 08/31/2011 06/28/2016 Iron deficiency anemia [D50.9] 09/28/2011 Neck pain [M54.2] 01/23/2013 06/28/2016 Cervicalgia [M54.2] 11/06/2013 Adjustment disorder with mixed anxiety and depr*12/29/2013 Psychic factors associated with diseases classi*12/29/2013 Sciatica [M54.30] 02/23/2015 Tension-type headache, not intractable [G44.209]01/27/2016 Abnormal mammogram [R92.8] 07/06/2017 Encounter Status:Closed by CHAYITO NORRIS on 06/24/24 [facility] 05-30-2024 Telephone encounter Note ----- Message from Melissa Schmidt MA sent at 02/28/2024 3:53 PM EDT ----- CBC- recheck in 3 months. [facility] 05-30-2024 Miscellaneous Notes ----- Message from Melissa Schmidt MA sent at 02/28/2024 3:53 PM EDT ----- CBC- recheck in 3 months. documented in this encounter [facility] 04-01-2024 History of Presen t illness Narrative ED Follow Up: Patient discharged from [facility] ED on 03/31/2024. 1. How are [...] you able to contact the office or salesperson men's and boys' clothing provider prior to your ED visit? Left message for pt to call office back. 5. Is there anything else I can do for you today? Left message for pt to call office back. documented in this encounter [facility] 03-30-2024 Telephone encounter Note Spoke with patient, discussed OTC medications for WISE and bodyaches such as alternating Tylenol and ibuprofen. Suggested f/u appt with pcp to explore further testing for severe bodyaches and headaches, but to proceed to ER sooner if patient feels as though pain is too bad. Rut Watkins MA [facility] 03-30-2024 Miscellaneous Notes Spoke with patient, discussed OTC medications for WISE and bodyaches such as alternating Tylenol and ibuprofen. Suggested f/u appt with pcp to explore further testing for severe bodyaches and headaches, but to proceed to ER sooner if patient feels as though pain is too bad. Rut Watkisn MA Patient's called back and was given [...] COVID flu RSV documented in this encounter [facility] 03-30-2024 Telephone encounter Note Patient's called [...] if there is no answer Yefri Vargas [facility] 03-30-2024 Telephone encounter Note Patient friend calling regarding results. Conferenced to Yefri in [facility] at phone number ([phone]) for assistance. Laat Friend LPN [facility] 03-30-2024 Miscellaneous Notes Patient friend calling regarding results. Conferenced to Yefri in [place] [facility] at phone number ([phone]) for assistance. Lata Friend LPN documented in this encounter [facility] 03-30-2024 Telephone encounter Note Left VM instructing patient to return call to receive results. Rut Watkins MA [facility] 03-30-2024 Telephone encounter Note Negative for COVID flu RSV [facility] 03-29-2024 Note HNO ID: [id number] Author: JULISSA SOTO PA Service: ? Author Type: Physician Machinist General Type: Progress Notes Filed: 03/29/2024 12:35 Note Text: This note was created using KneoWorldriter. Subjective Suhas Aburto is a 58 year [...] of Onset Cancer Mother throat Heart Brother [place] Diabetes Brother Coronary Artery Disease Brother [place] Social History Tobacco Use Smoking status: Never [...] prompt ER evaluation. PRINCE Colón [facility] 03-29-2024 History of Presen t illness Narrative This note was created using BusyLife Softwareter. Subjective Suhas Aburto is a 58 year [...] of Onset Cancer Mother throat Heart Brother NH Diabetes Brother Coronary Artery Disease Brother [place] Social History Tobacco Use Smoking status: Never [...] evaluation. PRINCE Colón documented in this encounter [facility] 03-29-2024 Instructions Julissa Soto PA - 03/29/2024 [...] with any congestion. documented in this encounter [facility] 02-28-2024 Telephone encounter Note Patient is informed reminder placed Melissa Schmidt MA [facility] 02-28-2024 Miscellaneous Notes Patient is informed reminder placed Mleissa Schmidt MA Please call the patient with [...] minutes a week. documented in this encounter [facility] 02-27-2024 Telephone encounter Note Please call [...] Increase exercise at 150 minutes a week. [facility] 02-21-2024 Instructions Nora Robertson APRN.CNP - 02/21/2024 10:59 AM EDT [place] [facility]- Call [phone] Laboratory (Appointment Recommended) Sunday: Closed Sunday: 7 a.m. - 5 p.m. Sunday: 7 a.m. - 5 p.m. Sunday: 7 a.m. - 5 p.m. : 7 a.m. - 5 p.m. Sunday: 7 a.m. - 5 p.m. Sunday: 7:30 a.m. - Noon [facility] Outpatient Lab Hours For your convenience, the outpatient laboratory is open during the following hours: Sunday- Sunday 7 a.m. - 4:30 p.m. Sunday: 8 a.m. - 11:45 a.m. The outpatient lab is closed on Sundays and . [facility] Radiology testing- call [facility] at [phone] Fast for 10 hours. Water is ok. documented in this encounter [facility] 02-21-2024 History of Presen t illness Narrative Images from the original note were not included. [facility] Nora Robertson APRN-STRAINER TENDER [address] [place] [address] Dept Dept. Visit Date: February 21, 2024 Ms.Jaswinder Aburto Date of : 1965 MRN/E #: [id number] Chief Complaint: Patient presents with: Establish Care [...] Brother Age of Onset: (Not Specified) Comment: [place] Problem: Diabetes Relation: Brother Age of Onset: (Not Specified) Problem: Coronary Artery Disease Relation: Brother Age of Onset: (Not Specified) Comment: [place] ALLERGIES Allergen Reactions Sulfa (Sulfonamide * itching, [...] 2024 10:40 AM documented in this encounter [facility] 02-18-2024 Instructions Holli Alfaro MD - 02/18/2024 3:21 PM EDT Dry Eye management: Preservative free lubricant eye drop 4 to 8 times daily Both eyes ( refresh, systane, genteal and theratears are good brands) Drink 6 to 8 glasses of clear liquids daily Cool mist humidifier in bedroom documented in this encounter [facility] 02-18-2024 History of Presen t illness [...] Holli Diana MD documented in this encounter [facility] 02-05-2024 History of Presen t illness Narrative This note was created using BusyLife Softwareter. Subjective Suhas Aburto is a 58 year [...] mi Diabetes Brother Coronary Artery Disease Brother [place] Social History Tobacco Use Smoking status: Never [...] evaluation. PRINCE Colón documented in this encounter [facility] 09-12-2023 History of Presen t illness [...] 2023 3:36 PM documented in this encounter [facility] 09-12-2023 History of Presen t illness Narrative This note was created using BusyLife Softwareter. Subjective Suhas Aburto is a 58 year [...] mi Diabetes Brother Coronary Artery Disease Brother [place] Social History Tobacco Use Smoking status: Never [...] evaluation. PRINCE Colón documented in this encounter [facility] 08-28-2023 Miscellaneous Notes Patient calls and notified of results and providers instructions. Patient verbalizes understanding. Love Chambers RN Left message for patient to return call. Elizabeth Mccormack Please notify that patient was positive for flu. Past treatment window. Usually contagious for 5-7 days. Return to work when 24 hours fever free. documented in this encounter [facility] 08-27-2023 History of Presen t illness [...] no wheezes or crackles, no increased [facility] 11/16/22: EST GFR - AA 104 [...] NAAT, ROUTINE - [facility]. Julian Miguel MD documented in this encounter [facility] 02-23-2023 History of Presen t illness [...] mi Diabetes Brother Coronary Artery Disease Brother [place] Social History Tobacco Use Smoking status: Never [...] Meera Pa APRN.CNP documented in this encounter [facility] 02-23-2023 Instructions Meera Pa APRN.CNP - [...] drainage or pus). documented in this encounter [facility] 11-14-2022 Instructions Meera Pa APRN.CNP - [...] Meera Pa APRN.CNP documented in this encounter [facility] 11-14-2022 History of Presen t illness Narrative Subjective HPI Suhas Aburto is a 57 year old female who presents due to being out of her hypertension medication and some other routine meds. She states she accidentally signed a form to have her records transferred to another doctor and this was due to her misunderstanding as Anguillan is her second language. She did not [...] an appointment with a new PCP at [facility] but she has since run out of her medication. She went to [facility] to have these refilled and was told they could not refill chronic meds. She then went to Emergency Room at [facility] and they told her they were [...] mi Diabetes Brother Coronary Artery Disease Brother [place] Social History Tobacco Use Smoking status: Never [...] medical evaluation if any occur. Meera Pa APRN.STRAINER TENDER documented in this encounter [facility] 01-23-2013 History of Past i llness Narrative Problem Noted Date Resolved Date Neck pain 01/23/2013 06/28/2016 Blood in stool 08/31/2011 03/24/2014 Anemia, unspecified 08/31/2011 06/28/2016 Dyspepsia and other specifie d disorders of function of stomach 10/04/2010 11/16/2015 Anxiety state, unspecified 07/04/200706/28 Headache(784.0) 07/04/2007 06/28/2016 documented as of this encounter (statuses as of 11/15/2022) [facility] History of Past illness Narrative* Problem Noted Date Resolved Date Neck pain 01/23/2013 06/28/2016 Blood in stool 08/31/2011 03/24/2014 Anemia, unspecified 08/31/2011 06/28/2016 Dyspepsia and other specifie d disorders of function of stomach 10/04/2010 11/16/2015 Anxiety state, unspecified 07/04/200706/28 Headache(784.0) 07/04/2007 06/28/2016 documented as of this encounter (statuses as of 02/23/2023) [facility] History of Past illness Narrative* Problem Noted Date Diagnosed Date Resolved Date Neck pain 01/23/2013 06/28/2016 Blood in stool 08/31/2011 03/24/2014 Anemia, unspecified 08/31/2011 06/28/20 16 Dyspepsia and other specifie d disorders of function of stomach 10/04/2010 11/16/2015 Anxiety state, unspecified 07/04/2007 0 06/28/2016 Headache(784.0) 07/04/2007 06/28/2016 documented as of this encounter (statuses as of 08/27/2023) [facility] History of Past illness Narrative* Problem Noted Date Diagnosed Date Resolved Date Neck pain 01/23/2013 06/28/2016 Blood in stool 08/31/2011 03/24/2014 Anemia, unspecified 08/31/2011 06/28/20 16 Dyspepsia and other specifie d disorders of function of stomach 10/04/2010 11/16/2015 Anxiety state, unspecified 07/04/2007 0 06/28/2016 Headache(784.0) 07/04/2007 06/28/2016 documented as of this encounter (statuses as of 08/28/2023) [facility] History of Past illness Narrative* Problem Noted Date Diagnosed Date Resolved Date Neck pain 01/23/2013 06/28/2016 Blood in stool 08/31/2011 03/24/2014 Anemia, unspecified 08/31/2011 06/28/20 16 Dyspepsia and other specifie d disorders of function of stomach 10/04/2010 11/16/2015 Anxiety state, unspecified 07/04/2007 0 06/28/2016 Headache(784.0) 07/04/2007 06/28/2016 documented as of this encounter (statuses as of 09/13/2023) [facility] Diagnosis Arthritis pain- Primary Arthropathy, unspecified, site unspecified Essential hypertension Unspecified essential hypertension [facility] Diagnosis Onset Date Resolution Status Osteoarthritis of left knee chronic Osteoarthritis of left knee chronic Osteoarthritis of left knee chronic Osteoarthritis of left knee chronic Acute nasopharyngitis [common cold] acute Encounter for screening for COVID-19 acute Hypertension chronic [facility] Work Phone: Evaluation note* Diagnosis Onset Date Resolution Status Daytime hypersomnia acute [facility] Work Phone: Evaluation note* Diagnosis Rash- Primary Rash and other nonspecific skin eruption [facility] noteNo assessment information availableWMetro[facility] Work Phone: Evaluation note* Diagnosis URI, acute- Primary Acute upper respiratory infections of unspecified site [facility] this [facility]* Diagnosis Acute cough- Primary Bacterial sinusitis Unspecified sinusitis (chronic) documented in this encounter [facility] note* Diagnosis Bacterial sinusitis- Primary Unspecified sinusitis (chronic) Fatigue, unspecified type [facility] this [facility]* Diagnosis Blurred vision, bilateral- Primary Other specified visual disturbances Refractive error Unspecified disorder of refraction and accommodation Pseudophakia Lens replaced by other means Dry eye syndrome, bilateral [facility] this [facility]* Diagnosis Well adult exam- Primary Routine [...] for breast cancer [facility]* Diagnosis Viral illness- Primary Unspecified viral infection, in conditions classified elsewhere and of unspecified site documented in this encounter [facility] note* Diagnosis HYPERTENSION NOS- Primary Unspecified essential [...] unspecified Acute cough documented in this encounter [facility] note* Diagnosis HYPERTENSION NOS- Primary Unspecified essential [...] depressive disorder (HCC) [facility] Diagnosis HYPERTENSION NOS- Primary Unspecified essential [...] malignant neoplasms, colon documented in this encounter [facility] note* Diagnosis HYPERTENSION NOS- Primary Unspecified essential [...] malignant neoplasms, colon [facility] Diagnosis HYPERTENSION NOS- Primary Unspecified essential [...] site not specified [facility] Diagnosis HYPERTENSION NOS- Primary Unspecified essential hypertension Adjustment disorder with mixed anxiety and depressed mood Essential hypertension- Primary Unspecified essential hypertension Routine health maintenance Routine general medical examination at a [facility] facility Encounter for screening mammogram for malignant [...] Pain in limb [facility] Diagnosis HYPERTENSION NOS- Primary Unspecified essential hypertension Adjustment disorder with mixed anxiety and depressed mood Essential hypertension- Primary Unspecified essential hypertension Routine health maintenance Routine general medical examination at a [facility] facility Encounter for screening mammogram for malignant neoplasm of breast Other screening mammogram Vitamin D deficiency Unspecified vitamin D deficiency Malaise and fatigue Other malaise and fatigue Insomnia, unspecified Iron deficiency anemia secondary to inadequate dietary iron intake Right lumbar radiculopathy Thoracic or lumbosacral neuritis or radiculitis, unspecified Foot pain, right Pain in limb [facility] Diagnosis HYPERTENSION NOS- Primary Unspecified essential hypertension Adjustment disorder with mixed anxiety and depressed mood Essential hypertension- Primary Unspecified essential hypertension Routine health maintenance Routine general medical examination at a [facility] facility Encounter for screening mammogram for malignant [...] malignant neoplasms, colon [facility] instructions[facility] Instructions EKG cardiac workup negative. Urine toxicology screen did return positive for marijuana substance. This is from accidental ingestion. Symptoms are improving. Blood pressure and heart rate improved. Follow-up with your doctor.[facility] Work Phone: Reason for referral (narrative)* Diagnostic Procedure Only (Routine) - Pending Review Specialty Diagnoses / Procedures Referred By Contac t Referred To Contact [facility] Diagnoses Encounter for screening mammogram for breast cancer Procedures DOUG SCREENING SCREENING MAMMOGRAPHY BI 2-VIEW BREAST INC CAD Nora Robertson APRN.STRAINER TENDER [address] [place] [address] [facility] [address] [place] [address] Referral ID Status Reason Start Date Expiration Date Visits Requested Visits Authorized [id number] Pending Review Auto-Generat ed Referral 02/21/2024 03/22/2025 1 1 * Consult, Test, Treat (Routine) - Authorized Specialty Diagnoses / Procedures Referred By Contac t Referred To Contact General Surgery / GENERAL SURGERY Diagnoses Screening for colon cancer Procedures CONSULT TO GENERAL SURGERY OFFICE/[facility]UTES Nora Robertson APRN.STRAINER TENDER [address] [place] [address] [facility] [address] [place] [address] Referral ID Status Reason Start Date Expiration Date Visits Requested Visits Authorized [id number] Authorized PCP Requested Referral 02/21/2024 02/20/2025 1 1 [facility] ([facility])No reason for referral information availableWMetroHealth [facility] Work Phone: Reason for visit Narrative* Diagnostic Procedure Only (Urgent) - Pending Review Specialty Diagnoses / Procedures Referred By Aloac t Referred To Contact XR IMAGING Diagnoses Foot pain, right Procedures XR FOOT GENERAL 3V AP/LAT/OBL RIGHT RADEX FOOT COMPLETE MINIMUM 3 VIEWS Julissa Soto, PRINCE [address] [facility] [place] [address] Phone: tel: fax: [place] [address] Referral ID Status Reason Start Date Expiration Date Visits Requested Visits Authorized [id number] Pending Review Auto-Generat ed Referral 02/18/2025 03/20/2026 1 1 [facility] Chief Complaint and Reason for Visit Chief [...] No July 06, 2020 9:03am Power of Supervisor [place] No June 9:03am Advance Directive Response Recorded Date/ Time Advance Directives No June 11:09am Living Will No July 06, 2020 10:03am Power of Supervisor [place] No June 10:03am Advance Directive Response Recorded Date/ Time Advance Directives No June 11:09am Living Will No January 08, 2024 2:23pm Power of Supervisor [place] No January 07 2:23pm Advance Directive Response Recorded Date/ Time Do you have a Healthcare Power of Supervisor [place]? No May 27, 2025 7:42pm Health Concerns [...] EVALUATION HIGH COMPLEX 45 MINS Nora Robertson LABORER DRIVER.STRAINER TENDER [address] [place] [address] [facility] [address] [place] [address] Referral ID Status Reason Start Date Expiration Date Visits Requested Visits Authorized [id number] Pending Review Auto-Generat ed Referral 07/21/2024 07/21/2025 1 1 Specialty Diagnoses / Procedures Referred By Contac t Referred To Contact Orthopedics / [facility] Diagnoses Primary osteoarthritis of left knee Procedures CONSULT TO ORTHOPAEDIC SURGERY OFFICE/OUTPATIENT NEW HIGH MDM 60 MINUTES Nora Robertson LABORER DRIVER.STRAINER TENDER [address] [place] [address] Emilie Negro PA-C [address] [place] [address] Referral ID Status Reason Start Date Expiration Date Visits Requested Visits Authorized [id number] Authorized PCP Requested Referral 07/21/2024 07/21/2025 1 1 Specialty Diagnoses / Procedures Referred By Contac t Referred To Contact General Surgery / [facility] Diagnoses Colon cancer screening Procedures CONSULT TO GENERAL SURGERY OFFICE/OUTPATIENT NEW HIGH MDM 60 MINUTES Nora Robertson LABORER DRIVER.STRAINER TENDER [address] [place] [address] Elizabeth Bland MD [address] [place] [address] Referral ID Status Reason Start Date Expiration Date Visits Requested Visits Authorized [id number] Authorized PCP Requested Referral 07/21/2024 07/21/2025 1 1 Specialty Diagnoses / Procedures Referred By Contac t Referred To Contact General Surgery / [facility] Diagnoses Screening for colon cancer Procedures CONSULT TO GENERAL SURGERY OFFICE/OUTPATIENT NEW HIGH MDM 60 MINUTES Nora Robertson, LABORER DRIVER.STRAINER TENDER [address] [place] [address] Elizabeth Bland MD [address] [place] [address] Referral ID Status Reason Start Date Expiration Date Visits Requested Visits Authorized [id number] Authorized PCP Requested Referral 09/18/2024 09/18/2025 1 1 Summary Purpose Additional Source Comments Source Comments (unrecognize d section and content) In the event this informatio n is protected by the Federal Confidentiality of Alcohol and Drug Abuse Patient Records regulations: The Federal rules restrict any use of the information to criminally investigate or prosecute any alcohol or drug abuse patient.[facility] the event this information is protected by the Federal Confidentiality of Alcohol and Drug Abuse Patient Records regulations: The Federal rules restrict any use of the information to criminally investigate or prosecute any alcohol or drug abuse patient.[facility] HospitalIn the event this information is protected by the Federal Confidentiality of Alcohol and Drug Abuse Patient Records regulations: The Federal rules restrict any use of the information to criminally investigate or prosecute any alcohol or drug abuse patient.[facility] HospitalIn the event this information is protected by the Federal Confidentiality of Alcohol and Drug Abuse Patient Records regulations: The Federal rules restrict any use of the information to criminally investigate or prosecute any alcohol or drug abuse patient.[facility] HospitalIn the event this information is protected by the Federal Confidentiality of Alcohol and Drug Abuse Patient Records regulations: The Federal rules restrict any use of the information to criminally investigate or prosecute any alcohol or drug abuse patient.[facility] HospitalIn the event this information is protected by the Federal Confidentiality of Alcohol and Drug Abuse Patient Records regulations: The Federal rules restrict any use of the information to criminally investigate or prosecute any alcohol or drug abuse patient.[facility] HospitalIn the event this information is protected by the Federal Confidentiality of Alcohol and Drug Abuse Patient Records regulations: The Federal rules restrict any use of the information to criminally investigate or prosecute any alcohol or drug abuse patient.[facility] HospitalIn the event this information is protected by the Federal Confidentiality of Alcohol and Drug Abuse Patient Records regulations: The Federal rules restrict any use of the information to criminally investigate or prosecute any alcohol or drug abuse patient.[facility] HospitalIn the event this information is protected by the Federal Confidentiality of Alcohol and Drug Abuse Patient Records regulations: The Federal rules restrict any use of the information to criminally investigate or prosecute any alcohol or drug abuse patient.[facility] HospitalIn the event this information is protected by the Federal Confidentiality of Alcohol and Drug Abuse Patient Records regulations: The Federal rules restrict any use of the information to criminally investigate or prosecute any alcohol or drug abuse patient.[facility] HospitalIn the event this information is protected by the Federal Confidentiality of Alcohol and Drug Abuse Patient Records regulations: The Federal rules restrict any use of the information to criminally investigate or prosecute any alcohol or drug abuse patient.[facility] HospitalIn the event this information is protected by the Federal Confidentiality of Alcohol and Drug Abuse Patient Records regulations: The Federal rules restrict any use of the information to criminally investigate or prosecute any alcohol or drug abuse patient.[facility] HospitalIn the event this information is protected by the Federal Confidentiality of Alcohol and Drug Abuse Patient Records regulations: The Federal rules restrict any use of the information to criminally investigate or prosecute any alcohol or drug abuse patient.[facility] HospitalIn the event this information is protected by the Federal Confidentiality of Alcohol and Drug Abuse Patient Records regulations: The Federal rules restrict any use of the information to criminally investigate or prosecute any alcohol or drug abuse patient.[facility] HospitalIn the event this information is protected by the Federal Confidentiality of Alcohol and Drug Abuse Patient Records regulations: The Federal rules restrict any use of the information to criminally investigate or prosecute any alcohol or drug abuse patient.[facility] HospitalIn the event this information is protected by the Federal Confidentiality of Alcohol and Drug Abuse Patient Records regulations: The Federal rules restrict any use of the information to criminally investigate or prosecute any alcohol or drug abuse patient.[facility] HospitalIn the event this information is protected by the Federal Confidentiality of Alcohol and Drug Abuse Patient Records regulations: The Federal rules restrict any use of the information to criminally investigate or prosecute any alcohol or drug abuse patient.[facility] HospitalIn the event this information is protected by the Federal Confidentiality of Alcohol and Drug Abuse Patient Records regulations: The Federal rules restrict any use of the information to criminally investigate or prosecute any alcohol or drug abuse patient.[facility] HospitalIn the event this information is protected by the Federal Confidentiality of Alcohol and Drug Abuse Patient Records regulations: The Federal rules restrict any use of the information to criminally investigate or prosecute any alcohol or drug abuse patient.[facility] HospitalIn the event this information is protected by the Federal Confidentiality of Alcohol and Drug Abuse Patient Records regulations: The Federal rules restrict any use of the information to criminally investigate or prosecute any alcohol or drug abuse patient.[facility] HospitalIn the event this information is protected by the Federal Confidentiality of Alcohol and Drug Abuse Patient Records regulations: The Federal rules restrict any use of the information to criminally investigate or prosecute any alcohol or drug abuse patient.[facility] HospitalIn the event this information is protected by the Federal Confidentiality of Alcohol and Drug Abuse Patient Records regulations: The Federal rules restrict any use of the information to criminally investigate or prosecute any alcohol or drug abuse patient.[facility] HospitalIn the event this information is protected by the Federal Confidentiality of Alcohol and Drug Abuse Patient Records regulations: The Federal rules restrict any use of the information to criminally investigate or prosecute any alcohol or drug abuse patient.[facility] HospitalIn the event this information is protected by the Federal Confidentiality of Alcohol and Drug Abuse Patient Records regulations: The Federal rules restrict any use of the information to criminally investigate or prosecute any alcohol or drug abuse patient.[facility] HospitalIn the event this information is protected by the Federal Confidentiality of Alcohol and Drug Abuse Patient Records regulations: The Federal rules restrict any use of the information to criminally investigate or prosecute any alcohol or drug abuse patient.[facility] HospitalIn the event this information is protected by the Federal Confidentiality of Alcohol and Drug Abuse Patient Records regulations: The Federal rules restrict any use of the information to criminally investigate or prosecute any alcohol or drug abuse patient.[facility] HospitalIn the event this information is protected by the Federal Confidentiality of Alcohol and Drug Abuse Patient Records regulations: The Federal rules restrict any use of the information to criminally investigate or prosecute any alcohol or drug abuse patient.[facility] HospitalIn the event this information is protected by the Federal Confidentiality of Alcohol and Drug Abuse Patient Records regulations: The Federal rules restrict any use of the information to criminally investigate or prosecute any alcohol or drug abuse patient.[facility] HospitalIn the event this information is protected by the Federal Confidentiality of Alcohol and Drug Abuse Patient Records regulations: The Federal rules restrict any use of the information to criminally investigate or prosecute any alcohol or drug abuse patient.[facility] HospitalIn the event this information is protected by the Federal Confidentiality of Alcohol and Drug Abuse Patient Records regulations: The Federal rules restrict any use of the information to criminally investigate or prosecute any alcohol or drug abuse patient.[facility] Reason for Visit (unrecogniz ed section and content) Reason Comments 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 Specialty Diagnoses / Procedures Referred By Geoffrey t Referred To Contact Diagnoses primary care Procedures OFFICE CONSULT NEW/EST 20 MIN Nora Robertson APRN.STRAINER TENDER [address] [place] [address] [facility] [place] [address] Referral ID Status Reason Start Date Expiration Date Visits Requested Visits Authorized [id number] Authorized Patient Cleared - Qualified 100% FAS 07/09/2024 10/07/2024 99 99 Reason Comments Blurred Vision Both Eyes Specialty Diagnoses / Procedures Referred By Geoffrey t Referred To Contact [facility] Diagnoses fatigue, eyes feel heavy, congestion x 5 days Procedures EST SAME DAY Self Express [facility] [address] [place] [address] Referral ID Status Reason Start Date Expiration Date Visits Requested Visits Authorized [id number] Authorized Patient Cleared - Qualified 100% FAS [...] new pt Procedures 4C NEW Nora Robertson APRN.STRAINER TENDER [address] [place] [address] Nora Robertson APRN.STRAINER TENDER [address] [place] [address] Referral ID Status Reason Start Date Expiration Date Visits Requested Visits Authorized [id number] Authorized Patient Cleared - Qualified 100% FAS 02/21/2024 05/21/2024 99 99 Reason Comments Headache Bodyaches x last nig ht Specialty Diagnoses / Procedures Referred By Contac t Referred To Contact Family Medicine / FAMILY MEDICINE Diagnoses new pt Procedures 4C NEW Nora Robertson, LABORER DRIVER.STRAINER TENDER [address] [place] [address] Nora Robertson, LABORER DRIVER.STRAINER TENDER [address] [place] [address] Reason Onset Date Comments Return Provider Call [...] 1 day Procedures EST SAME DAY [facility] [address] [place] [phone] Phone: tel: [facility] [address] [place] [address] Phone: tel: Referral ID Status Reason Start Date Expiration Date Visits Requested Visits Authorized [id number] Authorized Patient Cleared - Qualified 100% FAS 02/18/2025 05/19/2025 99 99 Reason Comments Musculoskeletal Problem Has been having random hand numbness since she feel last year Specialty Diagnoses / Procedures Referred By Geoffrey magallanes Referred To Contact [facility] Diagnoses Right foot injury X 1 day Procedures EST [facility] [address] [place] [phone] Phone: tel: [facility] [address] [place] [address] Phone: tel: Referral ID Status Reason Start Date Expiration Date Visits Requested Visits Authorized [id number] Authorized Patient Cleared - Qualified 100% FAS 02/18/2025 05/19/2025 99 99 Reason Comments Appointment EMG Referral Reason Comments Appointment Scheduling Reason Onset Date Comments Results 03/16/2025 Reason Onset Date Comments ED Follow-up 05/27/2025 [facility] 2024 Care Teams (unrecognized sec tion and content) Knitting Tester Relationship Specialty Start Date End Date Finesse [...] Care Provider, Referring Provider Active Sherry Hickey SEAM PRESSER, SEAM PRESSER-C Attending Provider Active Team Status: Inactive Member Role Status Dates Shelia Steele DO Primary Care Provider, Referring Provider Active Payal Choudhury SEAM PRESSER, SEAM PRESSER-C Attending Provider Active Team Status: Inactive Member Role Status Dates Dr. María Marion MD Primary Care Provider Active Dr. Matt Gill DO Attending Provider, Referring Provider Active Knitting Tester Relationship Specialty Start Date End Date Shelia Steele DO [address] [place] [address] PCP - General Family Medicine 02/23/23 Team Status: Inactive Member Role Status Dates Shelia Steele , DO Primary Care Provider Active Dr. Amber Ojeda MD Attending Provider Active Knitting Tester Relationship Specialty Start Date End Date CedricShelia trejoDO [address] [facility] [address] [place] [address] PCP - General Family Medicine 02/23/23 Knitting Tester Relationship Specialty Start Date End Date Shelia Steele DO [address] [facility] [address] [place] [address] PCP - General Family Medicine 02/23/23 Knitting Tester Relationship Specialty Start Date End Date CedricShelia trejoDO [address] [facility] [address] [place] [address] PCP - General Family Medicine 02/23/23 Team Status: Inactive Member Role Status Dates Shelia Steele DO Primary Care Provider Active Sherry Hickey SEAM PRESSER, SEAM PRESSER-C Attending Provider Active Team Status: Inactive Member Role Status Dates Shelia Steele , DO Primary Care Provider Active Latosha Mackey MD Attending Provider, Referring Provide r Active Team Status: Inactive Member Role Status Dates Shelia Steele DO Primary Care Provider Active Dr. Ezekiel Poole , DO Emergency Provider Active Knitting Tester Relationship Specialty Start Date End Date Josue Steeleistin SindiDO [address] [facility] [address] [place] [address] PCP - General Family Medicine 02/23/23 Knitting Tester Relationship Specialty Start Date End Date CedricShelia fryeDO [address] [facility] [address] [place] [address] PCP - General Family Medicine 02/23/23 Knitting Tester Relationship Specialty Start Date End Date Nora Robertson, SAMIRA.STRAINER TENDER [address] [place] [address] PCP - General Family Medicine 02/21/24 Knitting Tester Relationship Specialty Start Date End Date Queden, Nora A, LABORER DRIVER.STRAINER TENDER [address] [place] [address] PCP - General Family Medicine 02/21/24 Knitting Tester Relationship Specialty Start Date End Date Queden, Nora A, LABORER DRIVER.STRAINER TENDER [address] [place] [address] PCP - General Family Medicine 02/21/24 Knitting Tester Relationship Specialty Start Date End Date Queden, Nora A, LABORER DRIVER.STRAINER TENDER [address] [place] [address] PCP - General Family Medicine 02/21/24 Knitting Tester Relationship Specialty Start Date End Date QuedenCarolynNora A, LABORER DRIVER.STRAINER TENDER [address] [place] [address] PCP - General Family Medicine 02/21/24 Knitting Tester Relationship Specialty Start Date End Date Queden, Nora A, LABORER DRIVER.STRAINER TENDER [address] [place] [address] PCP - General Family Medicine 02/21/24 Knitting Tester Relationship Specialty Start Date End Date Queden, Nora A, LABORER DRIVER.STRAINER TENDER [address] [place] [address] PCP - General Family Medicine 02/21/24 Knitting Tester Relationship Specialty Start Date End Date Queden, Nora A, LABORER DRIVER.STRAINER TENDER [address] [place] [address] PCP - General Family Medicine 02/21/24 Knitting Tester Relationship Specialty Start Date End Date Shelia Steele DO [address] [place] [address] PCP - General Family Medicine 02/23/23 02/20/24 Knitting Tester Relationship Specialty Start Date End Date Nora Robertson, LABORER DRIVER.STRAINER TENDER [address] [place] [address] PCP - General Family Medicine 02/21/24 Knitting Tester Relationship Specialty Start Date End Date Nora Robertson, LABORER DRIVER.STRAINER TENDER [address] [place] [address] PCP - General Family Medicine 02/21/24 Knitting Tester Relationship Specialty Start Date End Date Nora Robertson, LABORER DRIVER.STRAINER TENDER [address] [place] [address] PCP - General Family Medicine 02/21/24 Knitting Tester Relationship Specialty Start Date End Date Nora Robertson, LABORER DRIVER.STRAINER TENDER [address] [place] [address] PCP - General Family Medicine 02/21/24 Knitting Tester Relationship Specialty Start Date End Date Nora Robertson, LABORER DRIVER.STRAINER TENDER [address] [place] [address] PCP - General Family Medicine 02/21/24 Knitting Tester Relationship Specialty Start Date End Date Nora Robertson, LABORER DRIVER.STRAINER TENDER [address] [place] [address] PCP - General Family Medicine 02/21/24 Knitting Tester Relationship Specialty Start Date End Date Nora Robertson, LABORER DRIVER.STRAINER TENDER [address] [place] [address] PCP - General Family Medicine 02/21/24 Knitting Tester Relationship Specialty Start Date End Date Nora Robertson, LABORER DRIVER.STRAINER TENDER [address] [place] [address] PCP - General Family Medicine 02/21/24 Knitting Tester Relationship Specialty Start Date End Date Nora Robertson, LABORER DRIVER.STRAINER TENDER [address] [place] [address] PCP - General Family Medicine 02/21/24 Knitting Tester Relationship Specialty Start Date End Date Nora Robertson, LABORER DRIVER.STRAINER TENDER [address] [facility] [place] [address] PCP - General Family Medicine 02/21/24 Knitting Tester Relationship Specialty Start Date End Date Nora Robertson, LABORER DRIVER.STRAINER TENDER [address] [place] [address] PCP - General Family Medicine 02/21/24 Team Status: Active Member Role/Relationship Status Dates Nora Robertson SEAM PRESSER, SEAM PRESSER-C Primary Care Provider Active Team Status: Inactive Member Role/Relationship Status Dates Dr. Edgar Doss , DO Emergency Provider Active Start : May 27, 2025 End: May 27, 2025 Nora Robertson SEAM PRESSER, SEAM PRESSER-C Primary Care Provider Active Start: May 27, 2025 End: May 27, 2025 Knitting Tester Relationship Specialty Start Date End Date Nora Robertson, LABORER DRIVER.STRAINER TENDER [address] [place] [address] PCP - General Family Medicine 02/21/24 Goals [...] section and content) DATE CREATED AUTHOR 02/26/2025 [facility] DATE CREATED AUTHOR AUTHOR'S ORGANIZ ATION 06/02/2025 [facility] DATE CREATED AUTHOR AUTHOR'S ORGANIZ ATION 06/03/2025 [facility] DATE CREATED AUTHOR AUTHOR'S ORGANIZ ATION 06/05/2025 [facility] FOR RECORDS PERTAINING TO PATIENTS [...] BE BASED ON THE PRIMARY CLINICAL RECORDS. [employer] provides no warranty or guarantee of the accuracy or completeness of information in this document.
[2025-10-07 23:45] VITALS: BP 165/128; PULSE 82; RESP 18; O2SAT 100
--- NOTE | 2025-10-07 23:55 | EKG12_ITS ---
Test Reason : ANXIETY Blood Pressure : */* mmHG Vent. Rate : 80 BPM Atrial Rate : 80 BPM P-R Int : 160 ms QRS Dur : 88 ms QT Int : 372 ms P-R-T Axes : 55 -18 26 degrees QTcB Int : 429 ms Normal sinus rhythm Moderate voltage criteria for LVH, may be normal variant ( R in aVL , [place] product ) Borderline ECG Confirmed by Akbar Martin ([id number]), sound editor ALEX NARVAEZ ([id number]) on 10/09/2025 8:29:07 AM Referred By: Confirmed By: Akbar Martin
[2025-10-08] VITALS (16 sets, daily range): BP systolic 122–180; BP diastolic 68–125; PULSE 73–80; RESP 13–20; TEMP 36.3; O2SAT 95–100
--- NOTE | 2025-10-08 00:01 | RAD_ITS ---
PROCEDURE: CHEST PA AND LATERAL 10/08/2025 REASON FOR EXAM: HYPERTENSION TECHNIQUE: Procedure Code: RADCXR Modality: DX Procedure: CHEST PA AND LATERAL COMPARISON: 09/30/2025 FINDINGS: Hardware: EKG leads overlie the chest Heart: The heart size is normal. Mediastinum: The mediastinal contour is unremarkable. Lungs: The lungs are clear. Bones: The bones are unremarkable. RAD/Chest PA and Lateral IMPRESSION: No acute pulmonary process Reading Location: [id number]
[2025-10-08 00:17] LABS: Hematocrit 36.1 % (37-47); Hemoglobin 11.9 g/dL (12.0-15.0); Mean Corp Hgb Conc 33.0 g/dL (32-36); Mean Corpuscular Volume 83.4 fL (81-99); Mean Platelet Vol. 10.0 fl (6.2-12.0); POSITIVE DIFFERENTIAL YES; POSITIVE MORPHOLOGY YES; Platelet Count 427 K/mm3 (150-450); RBC Distribution Width CV 12.9 % (11.6-14.6); RBC Distribution Width SD 39.1 fl (35.1-43.9); Red Blood Count 4.33 M/mm3 (4.2-5.4); White Blood Count 15.9 K/mm3 (4.4-11.0)
[2025-10-08 00:20] LABS: Differential Indicated MANUAL DIFF
[2025-10-08 00:22] LABS: Anion Gap 20 (7-18); BUN 14 mg/dL (4-19); BUN/Creat Ratio 15.2 RATIO (10-20); Calcium,Total 9.7 mg/dL (7.6-11.0); Carbon Dioxide 17.7 mmol/L (20.0-29.0); Chloride 99 mmol/L (96-106); Estimated Creatinine Clearance 55.07 ml/min (50-250); Glucose 133 mg/dL (70-99); Potassium 3.4 mmol/L (3.5-5.1)
[2025-10-08 00:34] LABS: Troponin T High Sensitivity 7 ng/L (<=14)
[2025-10-08 01:11] LABS: Immature Granulocytes Count 0.110 X10^3/uL (0.0-0.0); NRBC Flagged by Analyzer 0 % (0-5)
[2025-10-08 02:12] LABS: Troponin T High Sens 2 HR 17 ng/L (<=14)
[2025-10-08 04:12] LABS: Troponin T High Sens 4 HR 10 ng/L (<=14)
--- NOTE | 2025-10-08 04:37 | ED.RN ---
pt asked about getting a RX for a couple days worth of ativan. Dr Poole said he would send in a RX for that. Anything else she would have to follow up with her PCP
== END 2025-10-08 04:39 | disposition home or self-care (01) ==
PROVIDERS: Emergency Provider Emergency Medicine; PCP Nurse Practitioner Family; Visit Provider Emergency Medicine
DX: F41.9 Anxiety disorder, unspecified (principal); I10 Essential (primary) hypertension
CPT/HCPCS: 71046; 80048; 82962; 84484; 85025; 93005; 99285; A4216